=== PATIENT | male | born 1935 | race Caucasian/White ===

== ENCOUNTER 2017-05-12 22:06 | Inpatient (IN) | payer MEDICARE ==
[2017-05-12 22:16] LABS: Glucose,Whole Blood 326 mg/dL (75-99)
[2017-05-12] MEDS ORDERED: ACETAMINOPHEN TAB 500 MG TAB PO STA (22:17)
[2017-05-12] MEDS: SODIUM CHLORIDE 0.9% 500 ML IV SCH (22:31)
[2017-05-12 22:35] LABS: Basophils % (A) 0 %; Eosinophils # (A) 0.2 k/uL (0-0.7); Eosinophils % (A) 1 %; HCT 36.7 % (39.0-53.0); HDW 2.86; HGB 11.7 gm/dL (13.0-17.5); Luc # (Auto) 0.04; Luc % (Auto) 0; Lymphocytes # (A) 1.3 k/uL (1.0-4.8); Lymphocytes % (A) 9 %; MCHC 31.7 g/dL (31.0-37.0); MCV 91.4 fL (80.0-100.0); Mean Platelet Volume 7.1; Monocytes # (A) 0.4 k/uL (0-1.0); Monocytes % (A) 3 %; Neutrophils # (A) 12.8 k/uL (1.3-7.7); Neutrophils % (A) 87 %; RBC 4.02 m/uL (4.30-5.90); RDW 15.4 % (11.5-15.5); WBC 14.7 k/uL (3.8-10.6); WBC (Perox) 15.28
[2017-05-12 22:47] LABS: ALT 22 U/L (21-72); AST 22 U/L (17-59); Alkaline Phosphatase 89 U/L (38-126); Blood Urea Nitrogen 45 mg/dL (9-20); Calcium 9.1 mg/dL (8.4-10.2); Carbon Dioxide 22 mmol/L (22-30); Chloride 102 mmol/L (98-107); Glucose 337 mg/dL (74-99); Non-African American GFR(MDRD) 45 (>60 ml/min/1.73 sqM); Total Bilirubin 0.5 mg/dL (0.2-1.3); Total Protein 7.1 g/dL (6.3-8.2)
[2017-05-12 22:50] LABS: INR 1.1 (<1.2); Prothrombin Time 10.8 sec (9.0-12.0)
[2017-05-12 22:59] LABS: Particle Count 63780
[2017-05-12 23:01] LABS: Partial Thromboplastin Time 20.2 sec (22.0-30.0)
[2017-05-12 23:08] LABS: Appearance,Urine Bloody (Clear)
[2017-05-12 23:09] LABS: UA Billing (MACRO vs. MICRO) MICRO
--- NOTE | 2017-05-12 23:16 | XR ---
EXAMINATION TYPE: XR Hip RT and AP Pelvis DATE OF EXAM: 05/12/2017 COMPARISON: 05/25/2016 HISTORY: Pain TECHNIQUE: A single AP view of the pelvis is obtained. Two views of the right hip are obtained. FINDINGS: The pelvic ring is intact. Proximal right femur and hip joint are intact. There is vascular calcification. Sacroiliac joints are intact. CONCLUSION: No acute abnormality of the pelvis and right hip. No fracture.
--- NOTE | 2017-05-12 23:18 | XR ---
EXAMINATION TYPE: XR chest 2V DATE OF EXAM: 05/12/2017 COMPARISON: 05/31/2016 HISTORY: Fever TECHNIQUE: Frontal and lateral views of the chest are obtained. FINDINGS: There is no heart failure nor confluent pneumonic infiltrate. There is slight coarsening o f interstitial markings. Costophrenic angles are clear. Thoracic aorta is atheromatous. IMPRESSION: No active cardiopulmonary disease. Mild pulmonary fibrotic changes. Chest appears improv ed compared to last exam. No evidence of bronchopneumonia.
[2017-05-12 23:25] LABS: Anion Gap 12 mmol/L; Sodium 136 mmol/L (137-145)
[2017-05-12 23:27] LABS: Potassium 5.3 mmol/L (3.5-5.1)
[2017-05-12] MEDS ORDERED: MORPHINE SULFATE 2 MG/ML SYRINGE IVP STA (23:28)
[2017-05-12] MEDS ORDERED: ONDANSETRON 4 MG/2 ML VIAL IVP STA (23:28)
--- NOTE | 2017-05-12 23:33 | ED ---
General Adult HPI - General Chief complaint: Extremity Problem,Nontraumatic Stated complaint: Hip Pain Time Seen by Provider: 05/12/17 22:09 Source: patient, EMS, RN notes reviewed Mode of arrival: EMS Limitations: no limitations - History of Present Illness Initial comments: This is an 81-year-old male presents emergency department via EMS with multiple complaints. Patient complains of right hip pain, hematuria, fever or chills. Patient states she's been having ongoing issues with his right hip states that he is given medication by Dr. jones and had some x-rays so does not know the results. Patient denies any trauma. He states is very painful to walk on. Patient states that he's had problems with hematuria should've been ongoing and states that he had a procedure on his prostate approximately one year ago. He states that he has to self cath. He states that the hematuria was so severe today he could not get urine out through his catheter but he did urinate just prior to arrival. Patient states she has not taken anything for his fever. Patient states that he has been shaking and which is a started this evening. Patient denies any URI including cough, chest congestion, runny nose, sore throat, ear pain. Denies any chest pain or shortness of breath. - Related Data Home Medications Medication Instructions Recorded Confirmed Finasteride [Proscar] 5 mg PO DAILY 05/25/16 05/12/17 Simvastatin [Zocor] 10 mg PO HS 05/25/16 05/12/17 Previous Rx's Medication Instructions Recorded Insulin Detemir [Levemir] 10 unit SQ DAILY #0 05/31/16 Lactulose [Cephulac] 20 gm PO QID PRN #400 ml 05/31/16 Metoprolol Tartrate [Lopressor] 50 mg PO BID #60 tab 05/31/16 Pantoprazole Sodium [Protonix] 40 mg PO DAILY #30 tablet. 05/31/16 Allergies Allergy/AdvReac Type Severity Reaction Status Date / Time No Known Allergies Allergy Verified 05/25/16 13:00 Review of Systems ROS Statement: Those systems with pertinent positive or pertinent negative responses have been documented in the HPI. ROS Other: All systems not noted in ROS Statement are negative. Past Medical History Past Medical History: Coronary Artery Disease (CAD), Diabetes Mellitus, Hyperlipidemia, Hypertension, Prostate Disorder Additional Past Medical History / Comment(s): SHINGLES 3 YEARS AGO History of Any Multi-Drug Resistant Organisms: None Reported Past Surgical History: No Surgical Hx Reported Additional Past Surgical History / Comment(s): SELENE CATARACTS, COLONOSCOPY/ POLYPECTOMY(BENIGN) Past Anesthesia/Blood Transfusion Reactions: No Reported Reaction Past Psychological History: No Psychological Hx Reported Smoking Status: Former smoker Past Alcohol Use History: None Reported Past Drug Use History: None Reported - Past Family History Father Family Medical History: Cancer Mother Family Medical History: Cancer Additional Family Medical History / Comment(s): BREAST CANCER General Exam Limitations: no limitations General appearance: alert, in no apparent distress Head exam: Present: atraumatic, normocephalic, normal inspection Respiratory exam: Present: normal lung sounds bilaterally. Absent: respiratory distress, wheezes, rales, rhonchi, stridor Cardiovascular Exam: Present: regular rate, normal rhythm, normal heart sounds. Absent: systolic murmur, diastolic murmur, rubs, gallop, clicks GI/Abdominal exam: Present: soft, normal bowel sounds. Absent: distended, tenderness, guarding, rebound, rigid Extremities exam: Present: other (Mild discomfort with range of motion the right hip, nontender no rashes) Neurological exam: Present: alert, oriented X3, CN II-XII intact, reflexes normal. Absent: motor sensory deficit Skin exam: Present: warm, dry, intact, normal color. Absent: rash Course Vital Signs 05/12/17 22:09 Temperature 102.7 F H Pulse Rate 83 Respiratory 20 Rate Blood Pressure 230/98 O2 Sat by Pulse 99 Oximetry Medical Decision Making - Lab Data Result diagrams: 05/12/17 22:10 05/12/17 22:10 Lab Results 05/12/17 05/12/17 05/12/17 Range/Units 22:10 22:10 22:10 WBC 14.7 H (3.8-10.6) k/uL RBC 4.02 L (4.30-5.90) m/uL Hgb 11.7 L (13.0-17.5) gm/dL Hct 36.7 L (39.0-53.0) % MCV 91.4 (80.0-100.0) fL MCH 29.0 (25.0-35.0) pg MCHC 31.7 (31.0-37.0) g/dL RDW 15.4 (11.5-15.5) % Plt Count 312 (150-450) k/uL Neutrophils % 87 % Lymphocytes % 9 % Monocytes % 3 % Eosinophils % 1 % Basophils % 0 % Neutrophils # 12.8 H (1.3-7.7) k/uL Lymphocytes # 1.3 (1.0-4.8) k/uL Monocytes # 0.4 (0-1.0) k/uL Eosinophils # 0.2 (0-0.7) k/uL Basophils # 0.0 (0-0.2) k/uL PT (9.0-12.0) sec INR (<1.2) APTT (22.0-30.0) sec Sodium 136 L (137-145) mmol/L Potassium 5.3 H (3.5-5.1) mmol/L Chloride 102 (98-107) mmol/L Carbon Dioxide 22 (22-30) mmol/L Anion Gap 12 mmol/L BUN 45 H (9-20) mg/dL Creatinine 1.50 H (0.66-1.25) mg/dL Est GFR (MDRD) Af Amer 54 (>60 ml/min/1.73 sqM) Est GFR (MDRD) Non-Af 45 (>60 ml/min/1.73 sqM) Glucose 337 H (74-99) mg/dL POC Glucose (mg/dL) (75-99) mg/dL POC Glu Wood Carver ID Plasma Lactic Acid Lorenzo 2.9 H* (0.7-2.0) mmol/L Calcium 9.1 (8.4-10.2) mg/dL Total Bilirubin 0.5 (0.2-1.3) mg/dL AST 22 (17-59) U/L ALT 22 (21-72) U/L Alkaline Phosphatase 89 (38-126) U/L Total Protein 7.1 (6.3-8.2) g/dL Albumin 3.7 (3.5-5.0) g/dL Urine Color Urine Appearance (Clear) Urine Blood (Negative) Urine RBC (0-5) /hpf Urine WBC (0-5) /hpf Acetone, Qual Negative (Negative) Influenza Type A RNA (Not Detectd) Influenza Type B (PCR) (Not Detectd) 05/12/17 05/12/17 05/12/17 Range/Units 22:10 22:13 22:25 WBC (3.8-10.6) k/uL RBC (4.30-5.90) m/uL Hgb (13.0-17.5) gm/dL Hct (39.0-53.0) % MCV (80.0-100.0) fL MCH (25.0-35.0) pg MCHC (31.0-37.0) g/dL RDW (11.5-15.5) % Plt Count (150-450) k/uL Neutrophils % % Lymphocytes % % Monocytes % % Eosinophils % % Basophils % % Neutrophils # (1.3-7.7) k/uL Lymphocytes # (1.0-4.8) k/uL Monocytes # (0-1.0) k/uL Eosinophils # (0-0.7) k/uL Basophils # (0-0.2) k/uL PT 10.8 (9.0-12.0) sec INR 1.1 (<1.2) APTT 20.2 L (22.0-30.0) sec Sodium (137-145) mmol/L Potassium (3.5-5.1) mmol/L Chloride (98-107) mmol/L Carbon Dioxide (22-30) mmol/L Anion Gap mmol/L BUN (9-20) mg/dL Creatinine (0.66-1.25) mg/dL Est GFR (MDRD) Af Amer (>60 ml/min/1.73 sqM) Est GFR (MDRD) Non-Af (>60 ml/min/1.73 sqM) Glucose (74-99) mg/dL POC Glucose (mg/dL) 326 H (75-99) mg/dL POC Glu Wood Carver ID David, Adolfo Plasma Lactic Acid Lorenzo (0.7-2.0) mmol/L Calcium (8.4-10.2) mg/dL Total Bilirubin (0.2-1.3) mg/dL AST (17-59) U/L ALT (21-72) U/L Alkaline Phosphatase (38-126) U/L Total Protein (6.3-8.2) g/dL Albumin (3.5-5.0) g/dL Urine Color Urine Appearance (Clear) Urine Blood (Negative) Urine RBC (0-5) /hpf Urine WBC (0-5) /hpf Acetone, Qual (Negative) Influenza Type A RNA Not Detected (Not Detectd) Influenza Type B (PCR) Not Detected (Not Detectd) 05/12/17 Range/Units 22:35 WBC (3.8-10.6) k/uL RBC (4.30-5.90) m/uL Hgb (13.0-17.5) gm/dL Hct (39.0-53.0) % MCV (80.0-100.0) fL MCH (25.0-35.0) pg MCHC (31.0-37.0) g/dL RDW (11.5-15.5) % Plt Count (150-450) k/uL Neutrophils % % Lymphocytes % % Monocytes % % Eosinophils % % Basophils % % Neutrophils # (1.3-7.7) k/uL Lymphocytes # (1.0-4.8) k/uL Monocytes # (0-1.0) k/uL Eosinophils # (0-0.7) k/uL Basophils # (0-0.2) k/uL PT (9.0-12.0) sec INR (<1.2) APTT (22.0-30.0) sec Sodium (137-145) mmol/L Potassium (3.5-5.1) mmol/L Chloride (98-107) mmol/L Carbon Dioxide (22-30) mmol/L Anion Gap mmol/L BUN (9-20) mg/dL Creatinine (0.66-1.25) mg/dL Est GFR (MDRD) Af Amer (>60 ml/min/1.73 sqM) Est GFR (MDRD) Non-Af (>60 ml/min/1.73 sqM) Glucose (74-99) mg/dL POC Glucose (mg/dL) (75-99) mg/dL POC Glu Wood Carver ID Plasma Lactic Acid Lorenzo (0.7-2.0) mmol/L Calcium (8.4-10.2) mg/dL Total Bilirubin (0.2-1.3) mg/dL AST (17-59) U/L ALT (21-72) U/L Alkaline Phosphatase (38-126) U/L Total Protein (6.3-8.2) g/dL Albumin (3.5-5.0) g/dL Urine Color Dark Red Urine Appearance Bloody (Clear) Urine Blood Large H (Negative) Urine RBC >182 H (0-5) /hpf Urine WBC >182 H (0-5) /hpf Acetone, Qual (Negative) Influenza Type A RNA (Not Detectd) Influenza Type B (PCR) (Not Detectd) Disposition Clinical Impression: Right hip pain, UTI (urinary tract infection), Hematuria, Sepsis, Hyperglycemia Disposition: ADMITTED IP TO THIS HOSP Condition: Fair Referrals: Jose Luis Jones MD [Primary Care Provider] - 1-2 days
[2017-05-12 23:34] LABS: RBC,Urine >182 /hpf (0-5); WBC,Urine >182 /hpf (0-5)
[2017-05-12] MEDS ORDERED: MORPHINE SULFATE 4 MG/ML SYRINGE IV PRN (23:34)
[2017-05-12] MEDS ORDERED: LEVOFLOXACIN 500MG-D5W PMX 500 MG in DEXTROSE/WATER 1 100ML.BAG IVPB STA (23:34)
[2017-05-12] MEDS ORDERED: NALOXONE 0.4 MG/ML 1 ML VIAL IV PRN (23:34)
[2017-05-12] MEDS ORDERED: ACETAMINOPHEN TAB 325 MG TAB PO PRN (23:34)
[2017-05-12] MEDS ORDERED: HYDROmorphone 0.5 MG/0.5 ML SYRINGE IVP STA (23:56)
[2017-05-13] MEDS ORDERED: MORPHINE SULFATE 2 MG/ML SYRINGE IV PRN (00:06)
--- NOTE | 2017-05-13 01:01 | P.HPIM ---
History of Present Illness H&P Date: 05/13/17 Chief Complaint: hematuria 81 year old male with extensive medical history, including P.Afib on eliquis, and history of BPH resulting in urinary retention and CHICO 1 year ago since then he has been self cathing and reports frequent UTI. Patient presented today with complaints of acute onset hematuria and urinary retention. He reports that he gets frequent UTI due to self catheterization most likely, and he also have noticed off and on hematuria. He is not a detailed historian, and was not sure what previous workup or diagnosis made for the hematuria, however, he adds, this time he was unable to get urine out with the cath, but eventually passed bloody urine on his own. Despite that, he feels incomplete emptying of his bladder along with an attack of chills and fever today. Denies any abd pain, nausea , vomiting, fevers (other than prior to coming to the hospital) , falls, confusion, coughing, chest pain, or trouble breathing. He admits to taking eliquis for history of P. Afib for long time now. He currently feels ok, denies again any new compliant other than above. He reports chronic right hip pain. Review of Systems positive for right hip pain worsen with weight bearing chronic in nature, off and on hematuria otherwise as documented in the HPI, all other systems were reviewed and are negative Past Medical History Past Medical History: Coronary Artery Disease (CAD), Diabetes Mellitus, Hyperlipidemia, Hypertension, Prostate Disorder Additional Past Medical History / Comment(s): SHINGLES 3 YEARS AGO History of Any Multi-Drug Resistant Organisms: None Reported Past Surgical History: No Surgical Hx Reported Additional Past Surgical History / Comment(s): SELENE CATARACTS, COLONOSCOPY/ POLYPECTOMY(BENIGN), orthopedic surgery when he was a child, cystoscopy last year Past Anesthesia/Blood Transfusion Reactions: No Reported Reaction Past Psychological History: No Psychological Hx Reported Smoking Status: Former smoker Past Alcohol Use History: None Reported Past Drug Use History: None Reported - Past Family History Father Family Medical History: Cancer Mother Family Medical History: Cancer Additional Family Medical History / Comment(s): BREAST CANCER Medications and Allergies Home Medications and Allergies Comment(s): reviewed Home Medications Medication Instructions Recorded Confirmed Type Finasteride [Proscar] 5 mg PO DAILY 05/25/16 05/12/17 History Simvastatin [Zocor] 10 mg PO HS 05/25/16 05/12/17 History Insulin Detemir [Levemir] 10 unit SQ DAILY #0 05/31/16 05/12/17 Rx Lactulose [Cephulac] 20 gm PO QID PRN #400 ml 05/31/16 05/12/17 Rx Metoprolol Tartrate [Lopressor] 50 mg PO BID #60 tab 05/31/16 05/12/17 Rx Pantoprazole Sodium [Protonix] 40 mg PO DAILY #30 tablet. 05/31/16 05/12/17 Rx Allergies Allergy/AdvReac Type Severity Reaction Status Date / Time No Known Allergies Allergy Verified 05/25/16 13:00 Physical Exam Vitals: Vital Signs Temp Pulse Pulse Resp BP BP Pulse Ox 05/13/17 01:24 EDT 100.8 F H 66 18 105/48 94 L 05/13/17 00:06 99.3 F 05/12/17 23:42 84 18 170/74 97 05/12/17 22:09 102.7 F H 83 20 230/98 99 Intake and Output 05/12/17 05/12/17 05/13/17 14:59 22:59 05:59 Intake Total 450 Balance 450 Intake: Amount of Fluid Infused ( 450 ml) Other: Weight 106.594 kg 103 kg Patient Weight 05/13/17 05:59 Weight 103 kg Constitutional: No acute distress, conversant, pleasant Eyes: Anicteric sclerae, moist conjunctiva, no lid-lag Pupils equal round reactive to light ENMT: NC/AT Oropharynx clear, no erythema, exudates, dentures Neck: Supple, FROM, no masses, or JVD No carotid bruits No thyromegaly Lungs: Clear to auscultation Clear to percussion Normal respiratory effort, no accessory muscle use Cardiovascular: Heart regular in rate and rhythm, No murmurs, gallops, or rubs No peripheral edema capillary refill immediate in fingers and toes bilaterally Abdominal: Soft Nontender, no guarding, rebound or rigidity Abdomen moving with respiration Normoactive bowel sounds No hepatomegaly, No splenomegaly No palpable mass slight upper abd distention no CVA tenderness to percussion Skin: Normal temperature, tone, texture, turgor No induration No subcutaneous nodules No rash, lesions No ulcers Extremities: No digital cyanosis No clubbing Pedal pulses intact and symmetrical Radial pulses intact and symmetrical No calf tenderness no visible skin abnormalities or any swelling or skin changes over the right hip. range of motion is grossly preserved in all four extremities Psychiatric: Alert and oriented to person, place Appropriate affect fair judgment Neuro Muscles Strength 4/5 in all 4 extremities Sensation to light touch grossly present throughout Cranial nerves II-XII grossly intact No focal sensory deficits Lymphatics: no palpable cervical or supraclavicular , or inguinal lymph nodes Evidence of blood spots on his underwear anteriorly Results CBC & Chem 7: 05/12/17 22:10 05/12/17 22:10 Labs: Abnormal Lab Results - Last 24 Hours (Table) 05/12/17 05/12/17 05/12/17 Range/Units 22:10 22:10 22:10 WBC 14.7 H (3.8-10.6) k/uL RBC 4.02 L (4.30-5.90) m/uL Hgb 11.7 L (13.0-17.5) gm/dL Hct 36.7 L (39.0-53.0) % Neutrophils # 12.8 H (1.3-7.7) k/uL APTT (22.0-30.0) sec Sodium 136 L (137-145) mmol/L Potassium 5.3 H (3.5-5.1) mmol/L BUN 45 H (9-20) mg/dL Creatinine 1.50 H (0.66-1.25) mg/dL Glucose 337 H (74-99) mg/dL POC Glucose (mg/dL) (75-99) mg/dL Plasma Lactic Acid Lorenzo 2.9 H* (0.7-2.0) mmol/L Urine Blood (Negative) Urine RBC (0-5) /hpf Urine WBC (0-5) /hpf 05/12/17 05/12/17 05/12/17 Range/Units 22:10 22:13 22:35 WBC (3.8-10.6) k/uL RBC (4.30-5.90) m/uL Hgb (13.0-17.5) gm/dL Hct (39.0-53.0) % Neutrophils # (1.3-7.7) k/uL APTT 20.2 L (22.0-30.0) sec Sodium (137-145) mmol/L Potassium (3.5-5.1) mmol/L BUN (9-20) mg/dL Creatinine (0.66-1.25) mg/dL Glucose (74-99) mg/dL POC Glucose (mg/dL) 326 H (75-99) mg/dL Plasma Lactic Acid Lorenzo (0.7-2.0) mmol/L Urine Blood Large H (Negative) Urine RBC >182 H (0-5) /hpf Urine WBC >182 H (0-5) /hpf 05/13/17 Range/Units 01:01 EST WBC (3.8-10.6) k/uL RBC (4.30-5.90) m/uL Hgb (13.0-17.5) gm/dL Hct (39.0-53.0) % Neutrophils # (1.3-7.7) k/uL APTT (22.0-30.0) sec Sodium (137-145) mmol/L Potassium (3.5-5.1) mmol/L BUN (9-20) mg/dL Creatinine (0.66-1.25) mg/dL Glucose (74-99) mg/dL POC Glucose (mg/dL) 247 H (75-99) mg/dL Plasma Lactic Acid Lorenzo (0.7-2.0) mmol/L Urine Blood (Negative) Urine RBC (0-5) /hpf Urine WBC (0-5) /hpf Assessment and Plan Assessment: 81 year old male presented with acute onset heamturia and urinary retention, found to be in sepsis possibly 2/2 UTI. (1) Sepsis Narrative/Plan: 2/2 UTI switched to Rocephine 1 gm daily follow up blood and urine culture IVF hydration with NS 0.9% monitor vital signs symptomatic control recheck LA after aggressive hydration Current Visit: Yes Status: Acute Code(s): A41.9 - SEPSIS, UNSPECIFIED ORGANISM SNOMED Code(s): 48406772 (2) UTI (urinary tract infection) Narrative/Plan: This is most likely 2/2 self cath received a dose of levaquin in ED urine cultures pending blood culture pending switch to Rocephin to avoid potential side effects of levaquin Tylenol for fever Current Visit: Yes Status: Acute Code(s): N39.0 - URINARY TRACT INFECTION, SITE NOT SPECIFIED SNOMED Code(s): 19727501 (3) Hematuria Narrative/Plan: multifactorial with underlying acute UTI, and possible Eliquis side effect monitor UOP check bladder scan and self cath if PVR >200cc consult urology Current Visit: Yes Status: Acute Code(s): R31.9 - HEMATURIA, UNSPECIFIED SNOMED Code(s): 57601256 (4) Lactic acidosis Narrative/Plan: 2/2 hypoperfusion with sepsis aggressive IV fluid hydration NS 0.9% bolus 1L recheck LA Current Visit: Yes Status: Acute Code(s): E87.2 - ACIDOSIS SNOMED Code(s) : 56957715 (5) CKD (chronic kidney disease) Narrative/Plan: It seems like his Cr at his baseline of 1.5 continue to monitor renal function avoid nephrotoxic meds check renal US to r/o hydronephorsis Current Visit: Yes Status: Chronic Code(s): N18.9 - CHRONIC KIDNEY DISEASE, UNSPECIFIED SNOMED Code(s): 935092115 (6) Hyperkalemia Narrative/Plan: slightly elevated continue to monitor electrolytes for now Current Visit: Yes Status: Acute Code(s): E87.5 - HYPERKALEMIA SNOMED Code (s): 66772150 (7) Right hip pain Narrative/Plan: symptomatic pain control xrays unremarkable PT consider OP orthopedic evaluation , 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 Current Visit: No Status: Chronic Code(s): M25.551 - PAIN IN RIGHT HIP SNOMED Code(s): 22140183 (8) Hyperglycemia Narrative/Plan: most likely 2/2 to underlying sepsis not in DKA at this time with history of DM insulin dependant continue with insulin sliding scale and long acting insulin at night Current Visit: Yes Status: Acute Code(s): R73.9 - HYPERGLYCEMIA, UNSPECIFIED SNOMED Code(s): 58955327 (9) Paroxysmal A-fib Narrative/Plan: currently in sinus rhythm on blood thinner (eliquis on hold now due to acute hematuria ) continue with BB family counseled regarding increase risk of stroke from history of Afib if not on blood thinner, but risks outweigh benefits at this point continue to hold Eliquis until cleared by Urology Current Visit: Yes Status: Chronic Code(s): I48.0 - PAROXYSMAL ATRIAL FIBRILLATION SNOMED Code(s): 713682585 (10) DVT prophylaxis Narrative/Plan: avoid pharmacologic anticoagulation at this time due to hematuria SCDs bilateral legs Current Visit: Yes Status: Acute Code(s): GMO5637 - SNOMED Code(s): 349250710 (11) BPH (benign prostatic hyperplasia) Narrative/Plan: continue home meds monitor PVR Current Visit: Yes Status: Chronic Code(s): N40.0 - BENIGN PROSTATIC HYPERPLASIA WITHOUT LOWER URINRY TRACT SYMP SNOMED Code(s): 626374297 (12) Hypertensive urgency Narrative/Plan: resume home meds no evidence of end organ damage it seems that his creatinine is slightly elevated at baseline Current Visit: Yes Status: Acute Code(s): I16.0 - HYPERTENSIVE URGENCY SNOMED Code(s): 952409316 (13) Anemia Narrative/Plan: chronic anemia currently with acute hematuria monitor blood count Current Visit: Yes Status: Chronic Code(s): D64.9 - ANEMIA, UNSPECIFIED SNOMED Code(s): 683348626 Plan: Preformed a thorough record review from recent hospitalization almost a year ago , where he was diangosed with [place] due to urinary retention and hydronephrosis, urography and cystoscopy were performed then and found to have BPH. ECHOcardiogram last year showed LVEF of 55-60% Surrogate decision-maker: CODE STATUS: FULL DVT prophylaxis: SCDs mechanical Discussed with: Patient, ER, RN, family Anticipated discharge: 48-[address]: home A total of 50 minutes were spent on the care of this complex patient more than 50% of the time was spent in counseling and care coordination. Sepsis - Sepsis Sepsis Focused Exam #1 Sepsis Focused Exam Date: 05/13/17 Sepsis Focused Exam Complete: Yes Vital Signs & RN Notes Reviewed: Yes Capillary Refill: < 2 Seconds: Fingers (immediate), Toes (immediate) Peripheral Pulses: Weak: Dorsalis Pedis (R), Dorsalis Pedis (L), Normal: Radial (R), Radial (L) Skin Color: Normal for Patient Respiratory Exam: normal lung sounds Cardiovascular Exam: regular rate, normal heart sounds
[2017-05-13 01:09] LABS: Glucose,Whole Blood 247 mg/dL (75-99)
[2017-05-13] MEDS ORDERED: SODIUM CHLORIDE 0.9% 1,000 ML IV ONE (01:21)
[2017-05-13] MEDS: SODIUM CHLORIDE 0.9% 500 ML IV SCH (01:23)
[2017-05-13] MEDS: INSULIN DETEMIR 100 UNIT/ML 10 ML VIAL SQ SCH (01:29)
[2017-05-13 01:48] LABS: Basophils % (A) 0 %; CHCM 32.3; Eosinophils % (A) 0 %; HDW 3.05; Hypochromasia Slight; Luc # (Auto) 0.07; Luc % (Auto) 1; Lymphocytes # (A) 0.5 k/uL (1.0-4.8); Lymphocytes % (A) 3 %; MCH 28.7 pg (25.0-35.0); MCHC 30.8 g/dL (31.0-37.0); MCV 93.3 fL (80.0-100.0); Mean Platelet Volume 6.5; Monocytes # (A) 0.8 k/uL (0-1.0); Monocytes % (A) 5 %; Neutrophils # (A) 13.5 k/uL (1.3-7.7); Neutrophils % (A) 90 %; RBC 3.32 m/uL (4.30-5.90); RDW 14.1 % (11.5-15.5); WBC (Perox) 15.34
[2017-05-13 01:50] LABS: Calcium 8.3 mg/dL (8.4-10.2); HGB 9.5 gm/dL (13.0-17.5); Potassium 3.9 mmol/L (3.5-5.1)
[2017-05-13] MEDS: HYDROmorphone 1 MG/ML 1 ML SYRINGE IVP PRN ×4 (03:13→21:10)
[2017-05-13] MEDS: SODIUM CHLORIDE 0.9% 1,000 ML IV SCH ×3 (03:20→16:26)
[2017-05-13 07:28] LABS: Glucose,Whole Blood 120 mg/dL (75-99)
[2017-05-13] MEDS: INSULIN LISPRO (humaLOG) 300 UNIT/3 ML VIAL SQ SCH ×4 (07:37→21:55)
[2017-05-13] MEDS: cefTRIAXone IN SWFI 1,000 MG/10 ML SYRINGE IVP SCH (07:38)
[2017-05-13] MEDS: FINASTERIDE 5 MG TAB PO SCH (07:38)
[2017-05-13] MEDS: METOPROLOL TARTRATE 50 MG TAB PO SCH ×2 (07:38→22:01)
[2017-05-13] MEDS: PANTOPRAZOLE 40 MG TABLET PO SCH (07:38)
[2017-05-13] MEDS ORDERED: INSULIN DETEMIR 100 UNIT/ML 10 ML VIAL SQ SCH (09:00)
--- NOTE | 2017-05-13 09:29 | US ---
EXAMINATION TYPE: US renals and bladder DATE OF EXAM: 05/13/2017 COMPARISON: NONE CLINICAL HISTORY: assess for hydronephrosis . Macroscopic hematuria EXAM MEASUREMENTS: Right Kidney: 10.7 x 4.8 x 4.9 cm Left Kidney: 10.3 x 4.0 x 5.5 cm Right Kidney: No hydronephrosis or masses seen Left Kidney: No hydronephrosis or masses seen Bladder: mildly distended, wall appears thickened = 0.8 cm Bilateral Jets not seen IMPRESSION: 1. NO ACUTE RENAL ABNORMALITY. 2. THICKENED BLADDER WALL MAY REPRESENT CHRONIC BLADDER OUTLET OBSTRUCTION.
[2017-05-13] MEDS: HYDROcodone/APAP 5-325MG 1 EACH TAB PO PRN ×2 (09:33→14:16)
[2017-05-13] MEDS ORDERED: VANCOMYCIN IV PER PHARMACY 1 EACH MISC MISCELLANE PRN (10:59)
[2017-05-13] MEDS ORDERED: VANCOMYCIN 2,000 MG in SODIUM CHLORIDE 0.9% 500 ML IVPB ONE (12:00)
--- NOTE | 2017-05-13 12:16 | P.GSCN ---
History of Present Illness Consult date: 05/13/17 Reason for Consult: Hematuria Requesting physician: Yaya Sim History of present illness: He is an 81 year old WM hospitalized in May 2016 with acute renal failure, determined to be the result of a prostatomembranous urethral stricture. He underwent urethral dilation with Ramesh catheter placement, and his renal function improved. He now performs CIC 4 times daily. He experienced difficulty passing straight tip catheters, but he is able to catheterize himself with a 12 coude catheter 4 times daily without difficulty. He has recently passed blood and tissue, typically involving only the terminal stream. Cystoscopy was attempted last week, but could not be performed to completion due to a bulbomembranous stricture. He was advised to consider cystoscopy under anesthesia. He is now admitted with pain and weakness of his right lower extremity. He recently voided, and bladder scan showed approximately 100 mL of urine in his bladder as the postvoid residual. Review of Systems - Constitutional Reports fever - Genitourinary Reports hematuria - Musculoskeletal Musculoskeleta Comment(s): Right leg pain and weakness Past Medical History Past Medical History: Coronary Artery Disease (CAD), Diabetes Mellitus, Hyperlipidemia, Hypertension, Prostate Disorder Additional Past Medical History / Comment(s): SHINGLES 3 YEARS AGO History of Any Multi-Drug Resistant Organisms: None Reported Past Surgical History: No Surgical Hx Reported Additional Past Surgical History / Comment(s): SELENE CATARACTS, COLONOSCOPY/ POLYPECTOMY(BENIGN), orthopedic surgery when he was a child, cystoscopy last year Past Anesthesia/Blood Transfusion Reactions: No Reported Reaction Past Psychological History: No Psychological Hx Reported Smoking Status: Former smoker Past Alcohol Use History: None Reported Past Drug Use History: None Reported - Past Family History Father Family Medical History: Cancer Mother Family Medical History: Cancer Additional Family Medical History / Comment(s): BREAST CANCER Medications and Allergies Home Medications Medication Instructions Recorded Confirmed Type Finasteride [Proscar] 5 mg PO DAILY 05/25/16 05/13/17 History Metoprolol Tartrate [Lopressor] 50 mg PO BID #60 tab 05/31/16 05/13/17 Rx Acetaminophen-Codeine 300-30mg 1 tab PO TID PRN 05/13/17 05/13/17 History [Tylenol #3] Apixaban [Eliquis] 5 mg PO BID 05/13/17 05/13/17 History Atorvastatin [Lipitor] 20 mg PO DAILY 05/13/17 05/13/17 History Furosemide [Lasix] 20 mg PO DAILY 05/13/17 05/13/17 History Insulin Degludec [Tresiba 40 unit SQ HS 05/13/17 05/13/17 History Flextouch U-100] amLODIPine BESYLATE [Norvasc] 5 mg PO DAILY 05/13/17 05/13/17 History methylPREDNISolone [Medrol Dose See Taper PO DIRECTED 05/13/17 05/13/17 History Pack] Allergies Allergy/AdvReac Type Severity Reaction Status Date / Time No Known Allergies Allergy Verified 05/25/16 13:00 Surgical - Exam Vital Signs Temp Pulse Resp BP Pulse Ox 102.7 F H 83 20 230/98 99 05/12/17 22:09 05/12/17 22:09 05/12/17 22:09 05/12/17 22:09 05/12/17 22:09 - General well developed, well nourished, no distress - Respiratory normal respiratory effort - Abdomen Abdomen: soft, non tender, no guarding, no rigid, no rebound - Genitourinary testicles non-tender, other (The penis is uncircumcised. There is evidence of phimosis.) Results - Labs 05/13/17 01:01 EST 05/13/17 01:01 EST Abnormal Lab Results - Last 24 Hours (Table) 05/12/17 05/12/17 05/12/17 Range/Units 22:10 22:10 22:10 WBC 14.7 H (3.8-10.6) k/uL RBC 4.02 L (4.30-5.90) m/uL Hgb 11.7 L (13.0-17.5) gm/dL Hct 36.7 L (39.0-53.0) % MCHC (31.0-37.0) g/dL Neutrophils # 12.8 H (1.3-7.7) k/uL Lymphocytes # (1.0-4.8) k/uL APTT (22.0-30.0) sec Sodium 136 L (137-145) mmol/L Potassium 5.3 H (3.5-5.1) mmol/L BUN 45 H (9-20) mg/dL Creatinine 1.50 H (0.66-1.25) mg/dL Glucose 337 H (74-99) mg/dL POC Glucose (mg/dL) (75-99) mg/dL Plasma Lactic Acid Lorenzo 2.9 H* (0.7-2.0) mmol/L Calcium (8.4-10.2) mg/dL Urine Blood (Negative) Urine RBC (0-5) /hpf Urine WBC (0-5) /hpf 05/12/17 05/12/17 05/12/17 Range/Units 22:10 22:13 22:35 WBC (3.8-10.6) k/uL RBC (4.30-5.90) m/uL Hgb (13.0-17.5) gm/dL Hct (39.0-53.0) % MCHC (31.0-37.0) g/dL Neutrophils # (1.3-7.7) k/uL Lymphocytes # (1.0-4.8) k/uL APTT 20.2 L (22.0-30.0) sec Sodium (137-145) mmol/L Potassium (3.5-5.1) mmol/L BUN (9-20) mg/dL Creatinine (0.66-1.25) mg/dL Glucose (74-99) mg/dL POC Glucose (mg/dL) 326 H (75-99) mg/dL Plasma Lactic Acid Lorenzo (0.7-2.0) mmol/L Calcium (8.4-10.2) mg/dL Urine Blood Large H (Negative) Urine RBC >182 H (0-5) /hpf Urine WBC >182 H (0-5) /hpf 05/13/17 05/13/17 05/13/17 Range/Units 01:01 EST 01:01 EST 01:01 EST WBC 15.0 H (3.8-10.6) k/uL RBC 3.32 L (4.30-5.90) m/uL Hgb 9.5 L D (13.0-17.5) gm/dL Hct 31.0 L (39.0-53.0) % MCHC 30.8 L (31.0-37.0) g/dL Neutrophils # 13.5 H (1.3-7.7) k/uL Lymphocytes # 0.5 L (1.0-4.8) k/uL APTT (22.0-30.0) sec Sodium 134 L (137-145) mmol/L Potassium (3.5-5.1) mmol/L BUN 46 H (9-20) mg/dL Creatinine 1.70 H (0.66-1.25) mg/dL Glucose 203 H (74-99) mg/dL POC Glucose (mg/dL) 247 H (75-99) mg/dL Plasma Lactic Acid Lorenzo (0.7-2.0) mmol/L Calcium 8.3 L (8.4-10.2) mg/dL Urine Blood (Negative) Urine RBC (0-5) /hpf Urine WBC (0-5) /hpf 05/13/17 Range/Units 07:27 WBC (3.8-10.6) k/uL RBC (4.30-5.90) m/uL Hgb (13.0-17.5) gm/dL Hct (39.0-53.0) % MCHC (31.0-37.0) g/dL Neutrophils # (1.3-7.7) k/uL Lymphocytes # (1.0-4.8) k/uL APTT (22.0-30.0) sec Sodium (137-145) mmol/L Potassium (3.5-5.1) mmol/L BUN (9-20) mg/dL Creatinine (0.66-1.25) mg/dL Glucose (74-99) mg/dL POC Glucose (mg/dL) 120 H (75-99) mg/dL Plasma Lactic Acid Lorenzo (0.7-2.0) mmol/L Calcium (8.4-10.2) mg/dL Urine Blood (Negative) Urine RBC (0-5) /hpf Urine WBC (0-5) /hpf Diabetes panel 05/12/17 05/13/17 Range/Units 22:10 01:01 EST Sodium 136 L 134 L (137-145) mmol/L Potassium 5.3 H 3.9 (3.5-5.1) mmol/L Chloride 102 104 (98-107) mmol/L Carbon Dioxide 22 22 (22-30) mmol/L BUN 45 H 46 H (9-20) mg/dL Creatinine 1.50 H 1.70 H (0.66-1.25) mg/dL Glucose 337 H 203 H (74-99) mg/dL Calcium 9.1 8.3 L (8.4-10.2) mg/dL AST 22 (17-59) U/L ALT 22 (21-72) U/L Alkaline Phosphatase 89 (38-126) U/L Total Protein 7.1 (6.3-8.2) g/dL Albumin 3.7 (3.5-5.0) g/dL Calcium panel 05/12/17 05/13/17 Range/Units 22:10 01:01 EST Calcium 9.1 8.3 L (8.4-10.2) mg/dL Albumin 3.7 (3.5-5.0) g/dL Pituitary panel 05/12/17 05/13/17 Range/Units 22:10 01:01 EST Sodium 136 L 134 L (137-145) mmol/L Potassium 5.3 H 3.9 (3.5-5.1) mmol/L Chloride 102 104 (98-107) mmol/L Carbon Dioxide 22 22 (22-30) mmol/L BUN 45 H 46 H (9-20) mg/dL Creatinine 1.50 H 1.70 H (0.66-1.25) mg/dL Glucose 337 H 203 H (74-99) mg/dL Calcium 9.1 8.3 L (8.4-10.2) mg/dL Adrenal panel 05/12/17 05/13/17 Range/Units 22:10 01:01 EST Sodium 136 L 134 L (137-145) mmol/L Potassium 5.3 H 3.9 (3.5-5.1) mmol/L Chloride 102 104 (98-107) mmol/L Carbon Dioxide 22 22 (22-30) mmol/L BUN 45 H 46 H (9-20) mg/dL Creatinine 1.50 H 1.70 H (0.66-1.25) mg/dL Glucose 337 H 203 H (74-99) mg/dL Calcium 9.1 8.3 L (8.4-10.2) mg/dL Total Bilirubin 0.5 (0.2-1.3) mg/dL AST 22 (17-59) U/L ALT 22 (21-72) U/L Alkaline Phosphatase 89 (38-126) U/L Total Protein 7.1 (6.3-8.2) g/dL Albumin 3.7 (3.5-5.0) g/dL Assessment and Plan (1) UTI (urinary tract infection) Current Visit: Yes Status: Acute Code(s): N39.0 - URINARY TRACT INFECTION, SITE NOT SPECIFIED SNOMED Code(s): 37293162 (2) Urethral stricture unspecified Current Visit: Yes Status: Acute Code(s): N35.9 - URETHRAL STRICTURE, UNSPECIFIED SNOMED Code(s): 15450571 Plan: Continue IV antibiotics, pending urine and blood culture results. In the meantime, I have suggested that the patient continue to self catheterize 4 times daily.
[2017-05-13] MEDS: LACTULOSE 20 GM/30 ML CUP PO PRN (12:21)
[2017-05-13 12:28] LABS: Glucose,Whole Blood 85 mg/dL (75-99)
[2017-05-13 17:37] LABS: Glucose,Whole Blood 71 mg/dL (75-99)
[2017-05-13 18:37] LABS: Glucose,Whole Blood 70 mg/dL (75-99)
[2017-05-13 21:03] LABS: Glucose,Whole Blood 59 mg/dL (75-99)
[2017-05-13 21:04] LABS: Basophils % (A) 0 %; CH 30.1; CHCM 32.8; Eosinophils % (A) 0 %; HCT 29.9 % (39.0-53.0); HDW 3.06; HGB 9.4 gm/dL (13.0-17.5); Luc # (Auto) 0.13; Luc % (Auto) 1; Lymphocytes # (A) 0.9 k/uL (1.0-4.8); Lymphocytes % (A) 4 %; MCH 28.9 pg (25.0-35.0); MCHC 31.4 g/dL (31.0-37.0); MCV 92.2 fL (80.0-100.0); Mean Platelet Volume 6.5; Monocytes % (A) 5 %; Neutrophils # (A) 19.2 k/uL (1.3-7.7); Neutrophils % (A) 90 %; RBC 3.24 m/uL (4.30-5.90); RDW 14.2 % (11.5-15.5); WBC 21.4 k/uL (3.8-10.6); WBC (Perox) 21.46
[2017-05-13] MEDS ORDERED: DEXTROSE 50%-WATER 50 ML SYRINGE IVP STA (21:26)
[2017-05-13] MEDS: ATORVASTATIN 10 MG TAB PO SCH (22:01)
[2017-05-13 22:19] LABS: Glucose,Whole Blood 146 mg/dL (75-99)
[2017-05-13] MEDS: TAMSULOSIN 0.4 MG CAP.ER.24H PO SCH (22:42)
[2017-05-14] MEDS: HYDROmorphone 1 MG/ML 1 ML SYRINGE IVP PRN ×5 (00:25→21:44)
[2017-05-14] MEDS: INSULIN DETEMIR 100 UNIT/ML 10 ML VIAL SQ SCH ×2 (01:57→21:34)
[2017-05-14] MEDS: SODIUM CHLORIDE 0.9% 1,000 ML IV SCH ×3 (02:14→21:35)
[2017-05-14 07:43] LABS: Glucose,Whole Blood 64 mg/dL (75-99)
[2017-05-14] MEDS ORDERED: DEXTROSE 10 % IN WATER 250 ML IV STA (07:48)
[2017-05-14 08:07] LABS: CH 29.6; CHCM 32.4; HCT 28.9 % (39.0-53.0); HDW 3.06; HGB 9.3 gm/dL (13.0-17.5); Hypochromasia Slight; MCH 29.6 pg (25.0-35.0); MCHC 32.2 g/dL (31.0-37.0); MCV 91.9 fL (80.0-100.0); Mean Platelet Volume 6.8; RBC 3.14 m/uL (4.30-5.90); RDW 14.1 % (11.5-15.5)
[2017-05-14 08:13] LABS: Glucose,Whole Blood 111 mg/dL (75-99)
[2017-05-14 08:22] LABS: Calcium 8.3 mg/dL (8.4-10.2); Potassium 4.5 mmol/L (3.5-5.1)
[2017-05-14] MEDS: INSULIN LISPRO (humaLOG) 300 UNIT/3 ML VIAL SQ SCH ×3 (08:25→17:40)
[2017-05-14] MEDS: cefTRIAXone IN SWFI 1,000 MG/10 ML SYRINGE IVP SCH (09:08)
[2017-05-14] MEDS: POLYETHYLENE GLYCOL 3350 17 GM POWD.PACK PO SCH (09:09)
[2017-05-14] MEDS: PANTOPRAZOLE 40 MG TABLET PO SCH (09:09)
[2017-05-14] MEDS: FINASTERIDE 5 MG TAB PO SCH (09:09)
[2017-05-14] MEDS: METOPROLOL TARTRATE 50 MG TAB PO SCH ×2 (09:09→21:33)
--- NOTE | 2017-05-14 11:34 | P.PN ---
Subjective Progress Note Date: 05/14/17 Principal diagnosis: Hematuria Patient is feeling better, he had some blood with the bowel movement last night. Otherwise no chest pain, shortness of breath. No fevers or chills. Objective - Vital Signs Vital signs: Vital Signs Temp 99.9 F H 05/14/17 07:00 Pulse 67 05/14/17 07:00 Resp 16 05/14/17 07:00 BP 120/49 05/14/17 07:00 Pulse Ox 95 05/14/17 07:00 Intake & Output 05/13/17 05/14/17 05/14/17 18:59 06:59 18:59 Output Total 450 250 Balance -450 -250 Output: Urine 450 250 Other: Voiding Method Urinal Urinal Self-Catheterization Self-Catheterization - Labs CBC & Chem 7: 05/14/17 07:49 05/14/17 07:49 Labs: Abnormal Lab Results - Last 24 Hours (Table) 05/13/17 05/13/17 05/13/17 Range/Units 17:35 18:35 20:50 WBC 21.4 H (3.8-10.6) k/uL RBC 3.24 L (4.30-5.90) m/uL Hgb 9.4 L (13.0-17.5) gm/dL Hct 29.9 L (39.0-53.0) % Neutrophils # 19.2 H (1.3-7.7) k/uL Lymphocytes # 0.9 L (1.0-4.8) k/uL Sodium (137-145) mmol/L Carbon Dioxide (22-30) mmol/L BUN (9-20) mg/dL Creatinine (0.66-1.25) mg/dL POC Glucose (mg/dL) 71 L 70 L (75-99) mg/dL Calcium (8.4-10.2) mg/dL 05/13/17 05/13/17 05/14/17 Range/Units 21:02 22:18 07:32 WBC (3.8-10.6) k/uL RBC (4.30-5.90) m/uL Hgb (13.0-17.5) gm/dL Hct (39.0-53.0) % Neutrophils # (1.3-7.7) k/uL Lymphocytes # (1.0-4.8) k/uL Sodium (137-145) mmol/L Carbon Dioxide (22-30) mmol/L BUN (9-20) mg/dL Creatinine (0.66-1.25) mg/dL POC Glucose (mg/dL) 59 L 146 H 64 L (75-99) mg/dL Calcium (8.4-10.2) mg/dL 05/14/17 05/14/17 05/14/17 Range/Units 07:49 07:49 08:11 WBC 18.0 H (3.8-10.6) k/uL RBC 3.14 L (4.30-5.90) m/uL Hgb 9.3 L (13.0-17.5) gm/dL Hct 28.9 L (39.0-53.0) % Neutrophils # (1.3-7.7) k/uL Lymphocytes # (1.0-4.8) k/uL Sodium 134 L (137-145) mmol/L Carbon Dioxide 17 L (22-30) mmol/L BUN 53 H (9-20) mg/dL Creatinine 2.03 H (0.66-1.25) mg/dL POC Glucose (mg/dL) 111 H (75-99) mg/dL Calcium 8.3 L (8.4-10.2) mg/dL Microbiology - Last 24 Hours (Table) 05/12/17 22:10 Blood Culture Gram Stain - Preliminary Blood Blood Culture - Preliminary Presumptive MRSA 05/12/17 22:35 Urine Culture - Preliminary Urine,Clean Catch 05/12/17 22:10 Blood Culture - Final Blood Assessment and Plan Plan: (1) Acute sepsis/Bacteremia Likely 2/2 UTI likely caused by self cath Grew MRSA in the blood. Lactic acid and vitals normalized. Continue vancomycin and rocephine Consult ID IVF hydration with NS 0.9% (2) Hematuria Likely Eliquis side effect in the setting of self cath Urology to perform cysto today. (3) Acute renal failure Likely obstructive as U/S showed chronic bladder wall thickening sec to outlet obstruction. No hydronephrosis. Continue NS infusion Avoid nephrotoxic medications Follow urine output Follow Cr daily (4) New GI bleeding: Consult GI No hx of hemorrhoids (5) Right hip pain X-ray showing OA Symptomatic pain control PT Consider OP orthopedic evaluation , 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 (6) DM insulin dependant Continue with insulin sliding scale and long acting insulin at night (7) Paroxysmal A-fib Currently in sinus rhythm Eliquis on hold now due to acute hematuria Continue with BB (8) Benign hypertension Resume home meds (9) DVT prophylaxis SCDs bilateral legs
[2017-05-14] MEDS ORDERED: IV FLUID CONTINUATION 1,000 ML IV ONE (11:53)
--- NOTE | 2017-05-14 12:00 | P.PN ---
Progress Note - Text Progress Note Date: 05/14/17 Mr. Leslie has experienced difficulty emptying his bladder, as clots have occluded the catheter. He is afebrile, but blood cultures show MRSA. He will undergo cystoscopy, urethral dilation and/or DVIU, and possible irrigation of clots. The rationale and risks associated with this procedure were reviewed with him.
[2017-05-14] MEDS ORDERED: ONDANSETRON 4 MG/2 ML VIAL IVP ONE (12:02)
[2017-05-14] MEDS ORDERED: DEXAMETHASONE SOD PHOS (MDV) 100 MG/10 ML VIAL IVP ONE (12:03)
[2017-05-14 12:17] LABS: Glucose,Whole Blood 94 mg/dL (75-99)
[2017-05-14] MEDS ORDERED: ePHEDrine SULFATE/0.9% NACL/PF 50 MG/5 ML SYRINGE IV ONE (12:20)
[2017-05-14] MEDS ORDERED: PHENYLEPHRINE-0.9% NACL SYG 1 MG/10 ML SYRINGE ONE (12:20)
[2017-05-14] MEDS ORDERED: SUCCINYLCHOLINE CHLORIDE 100 MG/5 ML SYR IV ONE (12:20)
[2017-05-14] MEDS ORDERED: LIDOCAINE 1% INJ 10MG/ML (20 ML MDV) ONE (12:20)
[2017-05-14] MEDS ORDERED: PROPOFOL 10 MG/ML 20 ML VIAL IV ONE (12:20)
[2017-05-14] MEDS ORDERED: fentaNYL (PF) 50 MCG/ML 2 ML AMP ONE (12:20)
[2017-05-14] MEDS ORDERED: LACTATED RINGERS 1,000 ML IV ONE (12:57)
--- NOTE | 2017-05-14 13:14 | P.OP ---
Date of Procedure: 05/14/17 Preoperative Diagnosis: Urethral stricture, gross hematuria, UTI. Postoperative Diagnosis: Same Procedure(s) Performed: Cystoscopy with urethral dilation and Ramesh catheter insertion Anesthesia: CAITLIN Surgeon: Martin Bridges Estimated Blood Loss (ml): 10 IV fluids (ml): 400 Pathology: none sent Condition: stable Disposition: PACU Indications for Procedure: The patient is an 81-year-old white male with a known stricture at the bulbomembranous urethra. He has chronic urinary retention, for which she performs self-catheterization. He was recently admitted with right lower extremity pain and weakness, and has been found to have MRSA in a blood culture. He has experienced difficulty catheterizing himself, and his catheters have been occluded by clots. Operative Findings: Bulbomembranous urethral stricture. High prostatic median bar. Description of Procedure: The patient was taken to the operating room and placed in the dorsolithotomy position, with legs supported in Ralph stirrups. The external genitalia was prepped and draped sterilely. The 30 lens was used to introduce the 17-Palestinian Stortz cystoscopic sheath through the urethra under direct vision. A bulbomembranous urethral stricture was identified, through which the cystoscope was gently advanced. Within the prostatic urethra, a high median bar was noted and advancement of the cystoscope resulted and a false passage posteriorly, to the right of the midline. A 0.038 inch Glidewire was passed through the cystoscope. The Glidewire was advanced through the vesical neck and into the bladder. Next, urethral dilators were used to dilate the urethra to 20-Palestinian. The 16-Palestinian Olympus flexible cystoscope was then passed over the wire, into the bladder. The bladder was inspected, but visualization was somewhat limited. The bladder was noted to be trabeculated, with small diverticuli seen. No tumors or foreign bodies were seen. There was no active bleeding. The Glidewire was passed through the cystoscope, which was removed. Attempts were made to pass a 20-Palestinian Ramesh catheter over the wire, and subsequently an 18-Palestinian catheter, but both were unsuccessful. Ultimately, a 16-Palestinian catheter was passed over the wire, draining pink tinged urine. The catheters was connected to gravity drainage and the procedure was terminated. The patient tolerated the procedure well was taken to the recovery room in stable condition.
[2017-05-14] MEDS: VANCOMYCIN 1,750 MG in SODIUM CHLORIDE 0.9% 250 ML IVPB SCH ×2 (13:19→14:13)
[2017-05-14] MEDS ORDERED: SODIUM CHLORIDE 0.9% 1,000 ML IV ONE ×2 (13:19)
[2017-05-14 13:45] LABS: Glucose,Whole Blood 108 mg/dL (75-99)
--- NOTE | 2017-05-14 15:24 | CDI ---
In responding to this query, please exercise your independent professional judgment. The [facility] Coding Staff and Clinical Documentation Specialists appreciate your assistance in clarifying documentation, maintaining compliance with coding guidelines, accurately documenting patients condition and capturing severity of illness. The fact that a question is asked does not imply that any particular answer is desired or expected. Communication forms are a method of clarifying documentation and are not made part of the Legal Health Record. Thank you in advance for your clarification. Last Revision, May 2015 Anderson Dinh [address] [facility] [place] [address] Documentation Clarification Form Date: 05/14/2017 3:14:00 PM From: Elizabeth Vivar CCS, CCDS Admit Date: 05/12/2017 11:50:00 PM Patient Name: Jose Angel Leslie Visit Number: [id number] Discharge Date: Dr. Tony Madera: History/Risk Factors: Admit with hematuria, patient has paroxysmal A Fib on Eliquis, history of BPH resulting in urinary retention and self caths with frequent UTIs. Current BUN/CR/GFR: 53 / 2.03 / 38 Patients Baseline: Creatinine: 1.5 Clinical Indicators: Positive UA, elevated lactic acid. Admission BUN 45, Cr 1.50 Treatment: IV fluids, IV antibiotics, IV Morphine, IV Zofran, IV Levaquin, IV Dilaudid Urology procedure: Cystoscopy with urethral dilation & robertson cath insertion In order to capture the severity of condition, please clarify if the condition signifies: CKD Stage 1 (GFR > 90) CKD Stage 2 (GFR 60-89) CKD Stage 3 (GFR 30-59) CKD Stage 4 (GFR 15-29) CKD Stage 5 (GFR <15) ESRD Unable to determine Other condition, please specify Please document in your progress notes and discharge summary in order to capture severity of illness and risk of mortality. Include clinical findings that support your diagnosis. FYI: Press F11 to launch patient chart. IRENE
[2017-05-14 17:58] LABS: Glucose,Whole Blood 122 mg/dL (75-99)
[2017-05-14] MEDS: TAMSULOSIN 0.4 MG CAP.ER.24H PO SCH (18:41)
[2017-05-14 20:45] LABS: Glucose,Whole Blood 149 mg/dL (75-99)
[2017-05-14] MEDS: ATORVASTATIN 10 MG TAB PO SCH (21:33)
--- NOTE | 2017-05-14 23:28 | P.CONS ---
History of Present Illness - Reason for Consult Consult date: 05/14/17 - Chief Complaint Hematuria and fever - History of Present Illness 81-year-old male that is a history of multiple medical troubles that include urinary retention. The patient routinely straight caths 4 times per day. Relates over the last months has had increasing difficulties with self catheterization. Red rubber catheter required transition to a stiffer catheter to allow insertion.. The patient then started having further difficulties in need to be changed to a coud catheter for catheterization. The patient then started to have difficulties with hematuria. And then developed clots and was no longer able to pass any urine. And consequently presented to Hospital. He has been seen by urology and cystoscopy was performed with placement at that time of Ramesh catheter. Patient has evidence of sepsis in the infectious diseases consultation was requested. Patient relates started to feel slightly better. He felt very poorly at admission with fever and malaise. Review of Systems 81-year-old male who is still uncomfortable HEENT:Denies headache or acute visual change. Denies sinus or mouth discomforts. Denies neck stiffness or pain. Denies significant oral cavity pain. Denies difficulty on swallowing. Lungs: Denies significant shortness of breath, cough, sputum production, or hemoptysis. Cardiovascular: Denies significant shortness of breath, chest pain, chest wall pain, orthopnea, dyspnea on exertion, syncope Gastrointestinal:Denies nausea, vomiting, diarrhea, constipation, hematemesis, melena, hematochezia. No no significant change of bowel habit noticed. Musculoskeletal: denies significant myalgias or arthralgias. No new joint swelling. Denies new back pain. Skin: Denies new rash or lesions. No new ulcers or wounds are related.. Neuro: Denies headache or visual change. Denies any new onset weakness or difficulty with ambulation. Denies falls or seizures. Psychiatric:Denies anxiety or depression. Endocrine: Fatigue but weight is stable Urologic as per HPI Past Medical History Past Medical History: Coronary Artery Disease (CAD), Diabetes Mellitus, Hyperlipidemia, Hypertension, Prostate Disorder Additional Past Medical History / Comment(s): SHINGLES 3 YEARS AGO History of Any Multi-Drug Resistant Organisms: MRSA Year Discovered:: 05/12/17 MDRO Source:: BLOOD Past Surgical History: No Surgical Hx Reported Additional Past Surgical History / Comment(s): SELENE CATARACTS, COLONOSCOPY/ POLYPECTOMY(BENIGN), orthopedic surgery when he was a child, cystoscopy last year Past Anesthesia/Blood Transfusion Reactions: No Reported Reaction Past Psychological History: No Psychological Hx Reported Additional Psychological History / Comment(s): . 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 No international travel since. No animal exposures. Reformed smoker. No history of significant alcohol or recreational drug use Smoking Status: Former smoker Past Alcohol Use History: None Reported Past Drug Use History: None Reported - Past Family History Father Family Medical History: Cancer Mother Family Medical History: Cancer Additional Family Medical History / Comment(s): BREAST CANCER Medications and Allergies Home Medications and Allergies Comment(s): Current Medications Acetaminophen (Tylenol Tab) 650 mg PO Q6HR PRN PRN Reason: Mild Pain or Fever > 100.5 Hydrocodone Bitart/Acetaminophen ([place] 5-325) 1 each PO Q4HR PRN PRN Reason: Moderate Pain Last Admin: 05/13/17 14:16 Dose: 1 each Atorvastatin Calcium (Lipitor) 5 mg PO HS [facility] Last Admin: 05/14/17 21:33 Dose: 5 mg Finasteride (Proscar) 5 mg PO DAILY [facility] Last Admin: 05/14/17 09:09 Dose: Not Given Hydromorphone HCl (Dilaudid) 0.5 mg IVP Q3HR PRN PRN Reason: Severe Pain Last Admin: 05/14/17 21:44 Dose: 0.5 mg Vancomycin HCl 1,750 mg/ (Sodium Chloride) 250 mls @ 125 mls/hr IVPB Q24H [facility] Last Admin: 05/14/17 14:13 Dose: 125 mls Sodium Chloride (Saline 0.9%) 1,000 mls @ 50 mls/hr IV .Q20H [facility] Last Admin: 05/14/17 21:35 Dose: 50 mls/hr Insulin Detemir (Levemir) 10 unit SQ HS [facility] Last Admin: 05/14/17 21:34 Dose: 10 unit Insulin Human Lispro (Humalog) 0 unit SQ ACHS NUZHAT PRN Reason: Protocol Last Admin: 05/14/17 17:40 Dose: Not Given Lactulose (Cephulac) 20 gm PO QID PRN PRN Reason: Constipation Last Admin: 05/13/17 12:21 Dose: 20 gm Metoprolol Tartrate (Lopressor) 50 mg PO BID [facility] Last Admin: 05/14/17 21:33 Dose: 50 mg Morphine Sulfate (Morphine Sulfate (Inj)) 4 mg IV Q4HR PRN PRN Reason: Severe Pain Naloxone HCl (Narcan) 0.2 mg IV Q2M PRN PRN Reason: Opioid Reversal Pantoprazole Sodium (Protonix) 40 mg PO AC-BRKFST [facility] Last Admin: 05/14/17 09:09 Dose: Not Given Polyethylene Glycol (Miralax) 17 gm PO DAILY [facility] Last Admin: 05/14/17 09:09 Dose: Not Given Tamsulosin HCl (Flomax) 0.4 mg PO PC-SUPPER [facility] Last Admin: 05/14/17 18:41 Dose: 0.4 mg Home Medications Medication Instructions Recorded Confirmed Type Finasteride [Proscar] 5 mg PO DAILY 05/25/16 05/13/17 History Metoprolol Tartrate [Lopressor] 50 mg PO BID #60 tab 05/31/16 05/13/17 Rx Acetaminophen-Codeine 300-30mg 1 tab PO TID PRN 05/13/17 05/13/17 History [Tylenol #3] Apixaban [Eliquis] 5 mg PO BID 05/13/17 05/13/17 History Atorvastatin [Lipitor] 20 mg PO DAILY 05/13/17 05/13/17 History Furosemide [Lasix] 20 mg PO DAILY 05/13/17 05/13/17 History Insulin Degludec [Tresiba 40 unit SQ HS 05/13/17 05/13/17 History Flextouch U-100] amLODIPine BESYLATE [Norvasc] 5 mg PO DAILY 05/13/17 05/13/17 History methylPREDNISolone [Medrol Dose See Taper PO DIRECTED 05/13/17 05/13/17 History Pack] Allergies Allergy/AdvReac Type Severity Reaction Status Date / Time No Known Allergies Allergy Verified 05/25/16 13:00 Physical Exam Vitals: Vital Signs Temp Pulse Pulse Resp BP BP Pulse Ox 05/14/17 23:00 98.1 F 74 18 137/63 96 05/14/17 21:32 80 161/69 05/14/17 15:30 76 16 138/65 95 05/14/17 15:15 76 16 138/73 97 05/14/17 15:06 16 05/14/17 15:00 97.1 F L 78 16 147/72 96 05/14/17 14:50 16 05/14/17 14:04 71 16 142/55 94 L 05/14/17 13:49 74 18 147/66 95 05/14/17 13:34 70 18 150/67 100 05/14/17 13:19 97.2 F L 75 16 127/61 99 05/14/17 11:59 98.1 F 71 18 173/66 97 05/14/17 11:17 16 05/14/17 08:00 16 05/14/17 07:00 99.9 F H 67 16 120/49 95 Intake and Output 05/14/17 05/14/17 05/15/17 14:59 22:59 06:59 Intake Total 725 Output Total 10 Balance 715 Intake: IV 725 Output: Estimated Blood Loss 10 Other: Voiding Method Indwelling Catheter Indwelling Catheter 81-year-old male comfortable at this time HEENT: Anicteric conjunctiva are pink and moist nasal mucosa grossly intact without significant lesions, there is no thrush. Neck: The neck is supple without significant lymphadenopathy or thyromegaly. Lungs: Good bilateral air entry without significant crackles or wheezing. There is no significant bronchial sounds. There is no egophony or dullness. Heart: Regular rate and rhythm with an audible S1-S2, no S3 no S4. There is no significant murmur click or rub, PMI was nondisplaced. Abdomen: Obese Positive bowel sounds soft suprapubic tenderness, without palpable masses or organomegaly. There was no guarding or rebound. No flank tenderness Extremities: The upper extremities have excellent pulses they are symmetric, no significant petechiae or telangiectasia. No splinter hemorrhages were noted. The lower extremities are free from significant edema. The peripheral pulses were 2+ and symmetric. Neuro: Awake alert oriented to person place and time. There are no acute new gross focal sensory motor deficits. Results CBC & Chem 7: 05/14/17 07:49 05/14/17 07:49 Labs: Abnormal Lab Results - Last 24 Hours (Table) 05/14/17 05/14/17 05/14/17 Range/Units 07:32 07:49 07:49 WBC 18.0 H (3.8-10.6) k/uL RBC 3.14 L (4.30-5.90) m/uL Hgb 9.3 L (13.0-17.5) gm/dL Hct 28.9 L (39.0-53.0) % ESR (0-15) mm/hr Sodium 134 L (137-145) mmol/L Carbon Dioxide 17 L (22-30) mmol/L BUN 53 H (9-20) mg/dL Creatinine 2.03 H (0.66-1.25) mg/dL POC Glucose (mg/dL) 64 L (75-99) mg/dL Calcium 8.3 L (8.4-10.2) mg/dL C-Reactive Protein (<10.0) mg/L 05/14/17 05/14/17 05/14/17 Range/Units 08:11 13:43 17:09 WBC (3.8-10.6) k/uL RBC (4.30-5.90) m/uL Hgb (13.0-17.5) gm/dL Hct (39.0-53.0) % ESR 80 H (0-15) mm/hr Sodium (137-145) mmol/L Carbon Dioxide (22-30) mmol/L BUN (9-20) mg/dL Creatinine (0.66-1.25) mg/dL POC Glucose (mg/dL) 111 H 108 H (75-99) mg/dL Calcium (8.4-10.2) mg/dL C-Reactive Protein (<10.0) mg/L 05/14/17 05/14/17 05/14/17 Range/Units 17:09 17:37 20:44 WBC (3.8-10.6) k/uL RBC (4.30-5.90) m/uL Hgb (13.0-17.5) gm/dL Hct (39.0-53.0) % ESR (0-15) mm/hr Sodium (137-145) mmol/L Carbon Dioxide (22-30) mmol/L BUN (9-20) mg/dL Creatinine (0.66-1.25) mg/dL POC Glucose (mg/dL) 122 H 149 H (75-99) mg/dL Calcium (8.4-10.2) mg/dL C-Reactive Protein 309.2 H (<10.0) mg/L Microbiology - Last 24 Hours (Table) 05/12/17 22:35 Urine Culture - Preliminary Urine,Clean Catch Presumptive Staph aureus Strep agalactiae - (group b) 05/12/17 22:10 Blood Culture Gram Stain - Preliminary Blood Blood Culture - Preliminary Presumptive MRSA Laboratory Results WBC 18.0 k/uL (3.8-10.6) H 05/14/17 07:49 RBC 3.14 m/uL (4.30-5.90) L 05/14/17 07:49 Hgb 9.3 gm/dL (13.0-17.5) L 05/14/17 07:49 Hct 28.9 % (39.0-53.0) L 05/14/17 07:49 MCV 91.9 fL (80.0-100.0) 05/14/17 07:49 MCH 29.6 pg (25.0-35.0) 05/14/17 07:49 MCHC 32.2 g/dL (31.0-37.0) 05/14/17 07:49 RDW 14.1 % (11.5-15.5) 05/14/17 07:49 Plt Count 200 k/uL (150-450) 05/14/17 07:49 Neutrophils % 90 % 05/13/17 20:50 Lymphocytes % 4 % 05/13/17 20:50 Monocytes % 5 % 05/13/17 20:50 Eosinophils % 0 % 05/13/17 20:50 Basophils % 0 % 05/13/17 20:50 Neutrophils # 19.2 k/uL (1.3-7.7) H 05/13/17 20:50 Lymphocytes # 0.9 k/uL (1.0-4.8) L 05/13/17 20:50 Monocytes # 1.0 k/uL (0-1.0) 05/13/17 20:50 Eosinophils # 0.0 k/uL (0-0.7) 05/13/17 20:50 Basophils # 0.0 k/uL (0-0.2) 05/13/17 20:50 Hypochromasia Slight 05/14/17 07:49 ESR 80 mm/hr (0-15) H 05/14/17 17:09 PT 10.8 sec (9.0-12.0) 05/12/17 22:10 INR 1.1 (<1.2) 05/12/17 22:10 APTT 20.2 sec (22.0-30.0) L 05/12/17 22:10 Sodium 134 mmol/L (137-145) L 05/14/17 07:49 Potassium 4.5 mmol/L (3.5-5.1) 05/14/17 07:49 Chloride 107 mmol/L (98-107) 05/14/17 07:49 Carbon Dioxide 17 mmol/L (22-30) L 05/14/17 07:49 Anion Gap 10 mmol/L 05/14/17 07:49 BUN 53 mg/dL (9-20) H 05/14/17 07:49 Creatinine 2.03 mg/dL (0.66-1.25) H 05/14/17 07:49 Est GFR (MDRD) Af Amer 38 (>60 ml/min/1.73 sqM) 05/14/17 07:49 Est GFR (MDRD) Non-Af 32 (>60 ml/min/1.73 sqM) 05/14/17 07:49 Glucose 98 mg/dL (74-99) 05/14/17 07:49 POC Glucose (mg/dL) 149 mg/dL (75-99) H 05/14/17 20:44 POC Glu Hypnotherapist Renetta Edmond 05/14/17 20:44 Lactic Ac Sepsis Rflx Y 05/12/17 22:51 Plasma Lactic Acid Lorenzo 1.9 mmol/L (0.7-2.0) 05/13/17 01:00 EST Calcium 8.3 mg/dL (8.4-10.2) L 05/14/17 07:49 Total Bilirubin 0.5 mg/dL (0.2-1.3) 05/12/17 22:10 AST 22 U/L (17-59) 05/12/17 22:10 ALT 22 U/L (21-72) 05/12/17 22:10 Alkaline Phosphatase 89 U/L (38-126) 05/12/17 22:10 C-Reactive Protein 309.2 mg/L (<10.0) H 05/14/17 17:09 Total Protein 7.1 g/dL (6.3-8.2) 05/12/17 22:10 Albumin 3.7 g/dL (3.5-5.0) 05/12/17 22:10 Urine Color Dark Red 05/12/17 22:35 Urine Appearance Bloody (Clear) 05/12/17 22:35 Urine Blood Large (Negative) H 05/12/17 22:35 Urine RBC >182 /hpf (0-5) H 05/12/17 22:35 Urine WBC >182 /hpf (0-5) H 05/12/17 22:35 Stool Occult Blood Positive (Negative) 05/13/17 20:50 Acetone, Qual Negative (Negative) 05/12/17 22:10 Influenza Type A RNA Not Detected (Not Detectd) 05/12/17 22:25 Influenza Type B (PCR) Not Detected (Not Detectd) 05/12/17 22:25 Microbiology 05/12/17 22:35 Urine,Clean Catch Urine Culture - Preliminary Presumptive Staph aureus Strep agalactiae - (group b) 05/12/17 22:10 Blood Blood Culture Gram Stain - Preliminary 05/12/17 22:10 Blood Blood Culture - Preliminary Presumptive MRSA Assessment and Plan (1) UTI (urinary tract infection) Narrative/Plan: 81-year-old male presents to hospital with difficulties related to his urinary system. He has urinary retention and straight cath multiple times per day. Recently was having difficulties and was transitioned to a coud catheter. Despite that was unable to pass urine was having blood clots. He subsequently was admitted and has had cystoscopy with Ramesh catheter placement by urology. Urine culture and blood cultures reveal evidence of staph aureus likely MRSA as well as a strep. Antimicrobial therapy with vancomycin has been initiated. Follow blood cultures are requested Patient is more comfortable today. Will need outpatient intravenous antimicrobial therapy. Discharge once we have clearance of his bacteremia PICC line can be placed Current Visit: Yes Status: Acute Code(s): N39.0 - URINARY TRACT INFECTION, SITE NOT SPECIFIED SNOMED Code(s): 31398051 (2) MRSA bacteremia Current Visit: Yes Status: Acute Code(s): R78.81 - BACTEREMIA SNOMED Code( s): 39137319124291779 (3) Urethral obstruction Current Visit: Yes Status: Acute Code(s): N36.8 - OTHER SPECIFIED DISORDERS OF URETHRA SNOMED Code(s): 93929049 (4) Leukocytosis Current Visit: Yes Status: Acute Code(s): D72.829 - ELEVATED WHITE BLOOD CELL COUNT, UNSPECIFIED SNOMED Code(s): 192785598
[2017-05-15 02:02] LABS: Glucose,Whole Blood 159 mg/dL (75-99)
[2017-05-15] MEDS: INSULIN LISPRO (humaLOG) 300 UNIT/3 ML VIAL SQ SCH ×5 (02:14→20:41)
[2017-05-15] MEDS: HYDROcodone/APAP 5-325MG 1 EACH TAB PO PRN ×4 (05:27→22:22)
--- NOTE | 2017-05-15 07:53 | P.PN ---
Progress Note - Text Progress Note Date: 05/15/17 Mr. Leslie is feeling somewhat better today. He reports intermittent bladder discomfort, likely due to bladder spasms. He is afebrile. Preliminary urine cultures have shown staph aureus, and blood cultures have shown MRSA. He is currently receiving vancomycin. His Ramesh catheters draining clear yellow urine. I'm concerned that he will again experienced difficulty catheterizing upon removal of his Ramesh catheter. In view of this, the catheter will remain in place for 10-14 days to allow healing of the prostatic urethra.
[2017-05-15 07:58] LABS: Glucose,Whole Blood 178 mg/dL (75-99)
[2017-05-15] MEDS: METOPROLOL TARTRATE 50 MG TAB PO SCH ×2 (08:09→20:40)
[2017-05-15] MEDS: FINASTERIDE 5 MG TAB PO SCH (08:09)
[2017-05-15] MEDS: PANTOPRAZOLE 40 MG TABLET PO SCH (08:09)
[2017-05-15] MEDS: POLYETHYLENE GLYCOL 3350 17 GM POWD.PACK PO SCH (08:12)
[2017-05-15 08:28] LABS: Basophils % (A) 0 %; CH 29.2; CHCM 31.6; Eosinophils % (A) 0 %; HCT 31.4 % (39.0-53.0); HDW 2.77; HGB 9.7 gm/dL (13.0-17.5); Hypochromasia Slight; Luc # (Auto) 0.14; Luc % (Auto) 1; Lymphocytes # (A) 0.6 k/uL (1.0-4.8); Lymphocytes % (A) 3 %; MCH 28.6 pg (25.0-35.0); MCHC 30.8 g/dL (31.0-37.0); MCV 92.9 fL (80.0-100.0); Mean Platelet Volume 7.2; Monocytes # (A) 0.6 k/uL (0-1.0); Monocytes % (A) 3 %; Neutrophils % (A) 93 %; RBC 3.38 m/uL (4.30-5.90); RDW 15.2 % (11.5-15.5); WBC 20.4 k/uL (3.8-10.6); WBC (Perox) 21.73
[2017-05-15 08:48] LABS: Calcium 8.3 mg/dL (8.4-10.2); Potassium 5.4 mmol/L (3.5-5.1)
--- NOTE | 2017-05-15 11:11 | P.PN ---
Subjective Principal diagnosis: Hematuria. Patient is s/p cystoscopy with urethral dilation and Ramesh catheter insertion. Currently urine starting to clear up. Otherwise no chest pain or abdominal pain , no shortness of breath. No fevers or chills. Objective - Vital Signs Vital signs: Vital Signs Temp 97.2 F L 05/15/17 07:00 Pulse 105 H 05/15/17 07:00 Resp 16 05/15/17 07:00 BP 128/61 05/15/17 07:00 Pulse Ox 97 05/15/17 07:00 Intake & Output 05/14/17 05/15/17 05/15/17 18:59 06:59 18:59 Intake Total 725 Output Total 10 400 Balance 715 -400 Intake: IV 725 Output: Urine 400 Estimated Blood Loss 10 Other: Voiding Method Indwelling Catheter Indwelling Catheter - Exam Constitutional: No acute distress, conversant, pleasant Eyes:Anicteric sclerae, moist conjunctiva, no lid-lag, PERRLA, ENMT: Oropharynx clear, no erythema, exudates Neck: Supple, FROM, no masses, or JVD, No carotid bruits, No thyromegaly Lungs: Clear to auscultation, Clear to percussion, Normal respiratory effort, no accessory muscle use Cardiovascular: Heart regular in rate and rhythm, No murmurs, gallops, or rubs, No peripheral edema Abdominal: Soft, Nontender, no guarding, rebound or rigidity, Normoactive bowel sounds, No hepatomegaly, No splenomegaly, No palpable mass Skin: Normal temperature, tone, texture, turgor, no induration, No subcutaneous nodules, No rash, lesions, No ulcers Extremities: No digital cyanosis, No clubbing, Pedal pulses intact and symmetrical, Radial pulses intact and symmetrical, No calf tenderness Psychiatric: Alert and oriented to person, place and time, appropriate affect, intact judgement Neuro: Muscles Strength 5/5 in all 4 extremities, Sensation to light touch grossly present throughout, Cranial nerves II-XII grossly intact, no focal sensory deficits - Labs CBC & Chem 7: 05/15/17 07:46 05/15/17 07:46 Labs: Abnormal Lab Results - Last 24 Hours (Table) 05/14/17 05/14/17 05/14/17 Range/Units 07:49 13:43 17:09 WBC (3.8-10.6) k/uL RBC (4.30-5.90) m/uL Hgb (13.0-17.5) gm/dL Hct (39.0-53.0) % MCHC (31.0-37.0) g/dL Neutrophils # (1.3-7.7) k/uL Lymphocytes # (1.0-4.8) k/uL ESR 80 H (0-15) mm/hr Sodium (137-145) mmol/L Potassium (3.5-5.1) mmol/L Carbon Dioxide (22-30) mmol/L BUN (9-20) mg/dL Creatinine (0.66-1.25) mg/dL Glucose (74-99) mg/dL POC Glucose (mg/dL) 108 H (75-99) mg/dL Hemoglobin A1c 7.2 H (4.0-6.0) % Calcium (8.4-10.2) mg/dL C-Reactive Protein (<10.0) mg/L 05/14/17 05/14/17 05/14/17 Range/Units 17:09 17:37 20:44 WBC (3.8-10.6) k/uL RBC (4.30-5.90) m/uL Hgb (13.0-17.5) gm/dL Hct (39.0-53.0) % MCHC (31.0-37.0) g/dL Neutrophils # (1.3-7.7) k/uL Lymphocytes # (1.0-4.8) k/uL ESR (0-15) mm/hr Sodium (137-145) mmol/L Potassium (3.5-5.1) mmol/L Carbon Dioxide (22-30) mmol/L BUN (9-20) mg/dL Creatinine (0.66-1.25) mg/dL Glucose (74-99) mg/dL POC Glucose (mg/dL) 122 H 149 H (75-99) mg/dL Hemoglobin A1c (4.0-6.0) % Calcium (8.4-10.2) mg/dL C-Reactive Protein 309.2 H (<10.0) mg/L 05/15/17 05/15/17 05/15/17 Range/Units 02:01 07:41 07:46 WBC 20.4 H (3.8-10.6) k/uL RBC 3.38 L (4.30-5.90) m/uL Hgb 9.7 L (13.0-17.5) gm/dL Hct 31.4 L (39.0-53.0) % MCHC 30.8 L (31.0-37.0) g/dL Neutrophils # 19.0 H (1.3-7.7) k/uL Lymphocytes # 0.6 L (1.0-4.8) k/uL ESR (0-15) mm/hr Sodium (137-145) mmol/L Potassium (3.5-5.1) mmol/L Carbon Dioxide (22-30) mmol/L BUN (9-20) mg/dL Creatinine (0.66-1.25) mg/dL Glucose (74-99) mg/dL POC Glucose (mg/dL) 159 H 178 H (75-99) mg/dL Hemoglobin A1c (4.0-6.0) % Calcium (8.4-10.2) mg/dL C-Reactive Protein (<10.0) mg/L 05/15/17 Range/Units 07:46 WBC (3.8-10.6) k/uL RBC (4.30-5.90) m/uL Hgb (13.0-17.5) gm/dL Hct (39.0-53.0) % MCHC (31.0-37.0) g/dL Neutrophils # (1.3-7.7) k/uL Lymphocytes # (1.0-4.8) k/uL ESR (0-15) mm/hr Sodium 134 L (137-145) mmol/L Potassium 5.4 H (3.5-5.1) mmol/L Carbon Dioxide 18 L (22-30) mmol/L BUN 53 H (9-20) mg/dL Creatinine 2.26 H (0.66-1.25) mg/dL Glucose 156 H (74-99) mg/dL POC Glucose (mg/dL) (75-99) mg/dL Hemoglobin A1c (4.0-6.0) % Calcium 8.3 L (8.4-10.2) mg/dL C-Reactive Protein (<10.0) mg/L Microbiology - Last 24 Hours (Table) 05/12/17 22:35 Urine Culture - Final Urine,Clean Catch Methicillin resist S. aureus Strep agalactiae - (group b) 05/12/17 22:10 Blood Culture Gram Stain - Final Blood Blood Culture - Final Methicillin resist S. aureus 05/14/17 09:37 Blood Culture - Preliminary Blood Assessment and Plan Plan: (1) Acute sepsis/Bacteremia Likely 2/2 UTI likely caused by self cath Grew MRSA in the blood. Lactic acid and vitals normalized. Continue vancomycin and rocephine ID recommends PICC line placement for 2-4 weeks of antibiotics treatment, d/w ID & social media intern IVF hydration with NS 0.9% (2) Hematuria Likely Eliquis side effect in the setting of self cath S/p cystoscopy with urethral dilation and Ramesh catheter insertion (3) Acute renal failure Likely obstructive as U/S showed chronic bladder wall thickening sec to outlet obstruction. No hydronephrosis. Continue NS infusion Avoid nephrotoxic medications Follow urine output Follow Cr daily (4) New GI bleeding: No further episodes of bleeding Consult GI (5) Right hip pain X-ray showing OA Symptomatic pain control PT/OT Consider OP orthopedic evaluation , 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 (6) DM insulin dependant Continue with insulin sliding scale and long acting insulin at night Check blood sugars every before meals and chest (7) Paroxysmal A-fib Currently in sinus rhythm Eliquis on hold now due to acute hematuria Continue with BB (8) Benign hypertension Resume home meds (9) DVT prophylaxis SCDs bilateral legs
--- NOTE | 2017-05-15 11:26 | P.CONS ---
History of Present Illness - Reason for Consult Consult date: 05/15/17 rectal bleeding Requesting physician: Yaya Sim - History of Present Illness 81-year-old gentleman with a history of chronic atrial fibrillation with ELIQUIS monitoring admitted with urinary retention hematuria urethral stricture status post cystoscopy with urethral dilation and placement of Ramesh catheter yesterday. Patient passed a bowel movement on Sunday that was blood tinged. Nursing states that he had a bowel movement yesterday that was nonbloody. Hemoccult stool positive. Hemoglobin on admission 11.7 over the last few days in the 9 range presently 9.7. MCV 92. Platelet 222. INR 1.1. Denies melena or hematemesis. No abdominal pain. Antiplatelet medications on hold. Colonoscopy 5-6 years ago to his memory was normal. Review of Systems Constitutional: Denies fever, chills, sweats, weight gain, or loss. HEENT: Negative for migraines, blurred vision or loss, earaches, drainage, tinnitus, oral mucosal lesions, dysphagia, or odynophagia. Cardiac: Atrial fibrillation. Hypertension. Hyperlipidemia. Negative for chest pain, arrhythmias, or palpitation. Respiratory: Negative for shortness of breath, hemoptysis, cough, or sputum production. Gastrointestinal: See HPI for pertinent findings. Genitourinary: Urinary retention with hematuria see HPI denies penile discharge. Musculoskeletal: Negative for muscle aches, swelling, arthritis, and arthralgias. Neurologic: Negative for stroke or TIA. Endocrine: Diabetes mellitus. Negative for thyroid problems. Skin: Negative for rash or itching. Psychiatric: Negative history for depression and anxiety Past Medical History Past Medical History: Coronary Artery Disease (CAD), Diabetes Mellitus, Hyperlipidemia, Hypertension, Prostate Disorder Additional Past Medical History / Comment(s): SHINGLES 3 YEARS AGO History of Any Multi-Drug Resistant Organisms: MRSA Year Discovered:: 05/12/17 MDRO Source:: BLOOD Past Surgical History: No Surgical Hx Reported Additional Past Surgical History / Comment(s): SELENE CATARACTS, COLONOSCOPY/ POLYPECTOMY(BENIGN), orthopedic surgery when he was a child, cystoscopy last year Past Anesthesia/Blood Transfusion Reactions: No Reported Reaction Past Psychological History: No Psychological Hx Reported Additional Psychological History / Comment(s): . 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 No international travel since. No animal exposures. Reformed smoker. No history of significant alcohol or recreational drug use Smoking Status: Former smoker Past Alcohol Use History: None Reported Past Drug Use History: None Reported - Past Family History Father Family Medical History: Cancer Mother Family Medical History: Cancer Additional Family Medical History / Comment(s): BREAST CANCER Medications and Allergies Home Medications Medication Instructions Recorded Confirmed Type Finasteride [Proscar] 5 mg PO DAILY 05/25/16 05/13/17 History Metoprolol Tartrate [Lopressor] 50 mg PO BID #60 tab 05/31/16 05/13/17 Rx Acetaminophen-Codeine 300-30mg 1 tab PO TID PRN 05/13/17 05/13/17 History [Tylenol #3] Apixaban [Eliquis] 5 mg PO BID 05/13/17 05/13/17 History Atorvastatin [Lipitor] 20 mg PO DAILY 05/13/17 05/13/17 History Furosemide [Lasix] 20 mg PO DAILY 05/13/17 05/13/17 History Insulin Degludec [Tresiba 40 unit SQ HS 05/13/17 05/13/17 History Flextouch U-100] amLODIPine BESYLATE [Norvasc] 5 mg PO DAILY 05/13/17 05/13/17 History methylPREDNISolone [Medrol Dose See Taper PO DIRECTED 05/13/17 05/13/17 History Pack] Allergies Allergy/AdvReac Type Severity Reaction Status Date / Time No Known Allergies Allergy Verified 05/25/16 13:00 Physical Exam Vitals: Vital Signs Temp Pulse Pulse Resp BP BP Pulse Ox 05/15/17 07:00 97.2 F L 105 H 16 128/61 97 05/14/17 23:00 98.1 F 74 18 137/63 96 05/14/17 21:32 80 161/69 05/14/17 15:30 76 16 138/65 95 05/14/17 15:15 76 16 138/73 97 05/14/17 15:06 16 05/14/17 15:00 97.1 F L 78 16 147/72 96 05/14/17 14:50 16 05/14/17 14:04 71 16 142/55 94 L 05/14/17 13:49 74 18 147/66 95 05/14/17 13:34 70 18 150/67 100 05/14/17 13:19 97.2 F L 75 16 127/61 99 05/14/17 11:59 98.1 F 71 18 173/66 97 05/14/17 11:17 16 Intake and Output 05/14/17 05/15/17 05/15/17 22:59 06:59 14:59 Output Total 400 Balance -400 Output: Urine 400 Other: Voiding Method Indwelling Catheter Indwelling Catheter Indwelling Catheter General appearance: The patient is alert, oriented, in no acute distress. HET: Head is normocephalic and atraumatic. Pupils are equal and reactive. Oropharynx is clear without lesions. Neck: Supple without lymphadenopathy. Trachea midline. Heart: S1 S2. Regular rate and rhythm. Lungs: No crackles or wheezes are heard. Abdomen: Soft, nontender, nondistended with bowel sounds. No peritoneal signs. No palpable organomegaly or masses. Extremities: Normal skin color and turgor. No cyanosis, rash, ulceration, clubbing, or edema. Radial and pedal pulses are 2/4 bilaterally. Ramesh with clear urine. Neurological: No focal deficits. Strength and sensation are grossly intact. Results CBC & Chem 7: 05/16/17 09:04 05/16/17 09:04 Labs: Abnormal Lab Results - Last 24 Hours (Table) 05/14/17 05/14/17 05/14/17 Range/Units 07:49 13:43 17:09 WBC (3.8-10.6) k/uL RBC (4.30-5.90) m/uL Hgb (13.0-17.5) gm/dL Hct (39.0-53.0) % MCHC (31.0-37.0) g/dL Neutrophils # (1.3-7.7) k/uL Lymphocytes # (1.0-4.8) k/uL ESR 80 H (0-15) mm/hr Sodium (137-145) mmol/L Potassium (3.5-5.1) mmol/L Carbon Dioxide (22-30) mmol/L BUN (9-20) mg/dL Creatinine (0.66-1.25) mg/dL Glucose (74-99) mg/dL POC Glucose (mg/dL) 108 H (75-99) mg/dL Hemoglobin A1c 7.2 H (4.0-6.0) % Calcium (8.4-10.2) mg/dL C-Reactive Protein (<10.0) mg/L 05/14/17 05/14/17 05/14/17 Range/Units 17:09 17:37 20:44 WBC (3.8-10.6) k/uL RBC (4.30-5.90) m/uL Hgb (13.0-17.5) gm/dL Hct (39.0-53.0) % MCHC (31.0-37.0) g/dL Neutrophils # (1.3-7.7) k/uL Lymphocytes # (1.0-4.8) k/uL ESR (0-15) mm/hr Sodium (137-145) mmol/L Potassium (3.5-5.1) mmol/L Carbon Dioxide (22-30) mmol/L BUN (9-20) mg/dL Creatinine (0.66-1.25) mg/dL Glucose (74-99) mg/dL POC Glucose (mg/dL) 122 H 149 H (75-99) mg/dL Hemoglobin A1c (4.0-6.0) % Calcium (8.4-10.2) mg/dL C-Reactive Protein 309.2 H (<10.0) mg/L 05/15/17 05/15/17 05/15/17 Range/Units 02:01 07:41 07:46 WBC 20.4 H (3.8-10.6) k/uL RBC 3.38 L (4.30-5.90) m/uL Hgb 9.7 L (13.0-17.5) gm/dL Hct 31.4 L (39.0-53.0) % MCHC 30.8 L (31.0-37.0) g/dL Neutrophils # 19.0 H (1.3-7.7) k/uL Lymphocytes # 0.6 L (1.0-4.8) k/uL ESR (0-15) mm/hr Sodium (137-145) mmol/L Potassium (3.5-5.1) mmol/L Carbon Dioxide (22-30) mmol/L BUN (9-20) mg/dL Creatinine (0.66-1.25) mg/dL Glucose (74-99) mg/dL POC Glucose (mg/dL) 159 H 178 H (75-99) mg/dL Hemoglobin A1c (4.0-6.0) % Calcium (8.4-10.2) mg/dL C-Reactive Protein (<10.0) mg/L 05/15/17 Range/Units 07:46 WBC (3.8-10.6) k/uL RBC (4.30-5.90) m/uL Hgb (13.0-17.5) gm/dL Hct (39.0-53.0) % MCHC (31.0-37.0) g/dL Neutrophils # (1.3-7.7) k/uL Lymphocytes # (1.0-4.8) k/uL ESR (0-15) mm/hr Sodium 134 L (137-145) mmol/L Potassium 5.4 H (3.5-5.1) mmol/L Carbon Dioxide 18 L (22-30) mmol/L BUN 53 H (9-20) mg/dL Creatinine 2.26 H (0.66-1.25) mg/dL Glucose 156 H (74-99) mg/dL POC Glucose (mg/dL) (75-99) mg/dL Hemoglobin A1c (4.0-6.0) % Calcium 8.3 L (8.4-10.2) mg/dL C-Reactive Protein (<10.0) mg/L Microbiology - Last 24 Hours (Table) 05/12/17 22:35 Urine Culture - Final Urine,Clean Catch Methicillin resist S. aureus Strep agalactiae - (group b) 05/12/17 22:10 Blood Culture Gram Stain - Final Blood Blood Culture - Final Methicillin resist S. aureus 05/14/17 09:37 Blood Culture - Preliminary Blood Assessment and Plan Assessment: Impression: 1. Rectal bleeding possible perirectal in nature possible colonic. 2. History of atrial fibrillation maintained on ELIQUIS; presently on hold. 3. UTI Staphylococcus aureus. 4. MRSA bacteremia. 6. Urethral stricture gross hematuria status post cystoscopy with urethral dilation of Ramesh catheter insertion. 7. Anemia component of acute blood loss. Plan: 1. Last colonoscopy 5-6 years ago; Repeat colonoscopy discussed however he declines and wants to proceed conservatively. 2. Continue to observe if hemoglobin continues to decrease and/or the bleeding returns inpatient colonoscopy advised. Daily CBC. Will follow. Thank you for this kind referral and the opportunity to participate in the care of your patient. This consultation was discussed with Dr. Aldrich. The impression and plan of care have been directed as dictated.
[2017-05-15 11:35] LABS: Glucose,Whole Blood 220 mg/dL (75-99)
[2017-05-15] MEDS: VANCOMYCIN 1,750 MG in SODIUM CHLORIDE 0.9% 250 ML IVPB SCH (12:31)
[2017-05-15 17:21] LABS: Glucose,Whole Blood 274 mg/dL (75-99)
[2017-05-15] MEDS: TAMSULOSIN 0.4 MG CAP.ER.24H PO SCH (17:34)
[2017-05-15] MEDS: SODIUM CHLORIDE 0.9% 1,000 ML IV SCH (17:36)
[2017-05-15 20:30] LABS: Glucose,Whole Blood 251 mg/dL (75-99)
[2017-05-15] MEDS: ATORVASTATIN 10 MG TAB PO SCH (20:39)
[2017-05-15] MEDS: INSULIN DETEMIR 100 UNIT/ML 10 ML VIAL SQ SCH (20:39)
--- NOTE | 2017-05-15 23:07 | P.PN ---
Subjective Progress Note Date: 05/15/17 Principal diagnosis: Sepsis 81-year-old male that is a history of multiple medical troubles that include urinary retention. The patient routinely straight caths 4 times per day. Relates over the last months has had increasing difficulties with self catheterization. Red rubber catheter required transition to a stiffer catheter to allow insertion.. The patient then started having further difficulties in need to be changed to a coud catheter for catheterization. The patient then started to have difficulties with hematuria. And then developed clots and was no longer able to pass any urine. And consequently presented to Hospital. He has been seen by urology and cystoscopy was performed with placement at that time of Ramesh catheter. Patient has evidence of sepsis in the infectious diseases consultation was requested. Patient relates started to feel slightly better. He felt very poorly at admission with fever and malaise. Fever is now improved. Objective - Vital Signs Vital signs: Vital Signs Temp 98.2 F 05/15/17 15:28 Pulse 118 H 05/15/17 20:37 Resp 16 05/15/17 16:00 BP 128/88 05/15/17 20:37 Pulse Ox 97 05/15/17 15:28 Intake & Output 05/15/17 05/15/17 05/16/17 06:59 18:59 06:59 Intake Total 1200 Output Total 400 450 225 Balance -400 750 -225 Intake: Oral 1200 Output: Urine 400 450 225 Other: Voiding Method Indwelling Catheter Indwelling Catheter - Exam 81-year-old male comfortable at this time HEENT: Anicteric conjunctiva are pink and moist nasal mucosa grossly intact without significant lesions, there is no thrush. Neck: The neck is supple without significant lymphadenopathy or thyromegaly. Lungs: Good bilateral air entry without significant crackles or wheezing. There is no significant bronchial sounds. There is no egophony or dullness. Heart: Regular rate and rhythm with an audible S1-S2, no S3 no S4. There is no significant murmur click or rub, PMI was nondisplaced. Abdomen: Obese Positive bowel sounds soft suprapubic tenderness, without palpable masses or organomegaly. There was no guarding or rebound. No flank tenderness Extremities: The upper extremities have excellent pulses they are symmetric, no significant petechiae or telangiectasia. No splinter hemorrhages were noted. The lower extremities are free from significant edema. The peripheral pulses were 2+ and symmetric. Neuro: Awake alert oriented to person place and time. There are no acute new gross focal sensory motor deficits. - Labs CBC & Chem 7: 05/15/17 07:46 05/15/17 07:46 Labs: Abnormal Lab Results - Last 24 Hours (Table) 05/14/17 05/15/17 05/15/17 Range/Units 07:49 02:01 07:41 WBC (3.8-10.6) k/uL RBC (4.30-5.90) m/uL Hgb (13.0-17.5) gm/dL Hct (39.0-53.0) % MCHC (31.0-37.0) g/dL Neutrophils # (1.3-7.7) k/uL Lymphocytes # (1.0-4.8) k/uL Sodium (137-145) mmol/L Potassium (3.5-5.1) mmol/L Carbon Dioxide (22-30) mmol/L BUN (9-20) mg/dL Creatinine (0.66-1.25) mg/dL Glucose (74-99) mg/dL POC Glucose (mg/dL) 159 H 178 H (75-99) mg/dL Hemoglobin A1c 7.2 H (4.0-6.0) % Calcium (8.4-10.2) mg/dL 05/15/17 05/15/17 05/15/17 Range/Units 07:46 07:46 11:32 WBC 20.4 H (3.8-10.6) k/uL RBC 3.38 L (4.30-5.90) m/uL Hgb 9.7 L (13.0-17.5) gm/dL Hct 31.4 L (39.0-53.0) % MCHC 30.8 L (31.0-37.0) g/dL Neutrophils # 19.0 H (1.3-7.7) k/uL Lymphocytes # 0.6 L (1.0-4.8) k/uL Sodium 134 L (137-145) mmol/L Potassium 5.4 H (3.5-5.1) mmol/L Carbon Dioxide 18 L (22-30) mmol/L BUN 53 H (9-20) mg/dL Creatinine 2.26 H (0.66-1.25) mg/dL Glucose 156 H (74-99) mg/dL POC Glucose (mg/dL) 220 H (75-99) mg/dL Hemoglobin A1c (4.0-6.0) % Calcium 8.3 L (8.4-10.2) mg/dL 05/15/17 05/15/17 Range/Units 17:18 20:29 WBC (3.8-10.6) k/uL RBC (4.30-5.90) m/uL Hgb (13.0-17.5) gm/dL Hct (39.0-53.0) % MCHC (31.0-37.0) g/dL Neutrophils # (1.3-7.7) k/uL Lymphocytes # (1.0-4.8) k/uL Sodium (137-145) mmol/L Potassium (3.5-5.1) mmol/L Carbon Dioxide (22-30) mmol/L BUN (9-20) mg/dL Creatinine (0.66-1.25) mg/dL Glucose (74-99) mg/dL POC Glucose (mg/dL) 274 H 251 H (75-99) mg/dL Hemoglobin A1c (4.0-6.0) % Calcium (8.4-10.2) mg/dL Microbiology - Last 24 Hours (Table) 05/14/17 17:09 Blood Culture Gram Stain - Preliminary Blood Blood Culture - Preliminary Presumptive MRSA 05/14/17 18:13 Blood Culture Gram Stain - Preliminary Blood Blood Culture - Preliminary Presumptive MRSA 05/14/17 09:37 Blood Culture Gram Stain - Preliminary Blood Blood Culture - Preliminary Presumptive MRSA 05/14/17 18:13 Blood Culture - Final Blood 05/14/17 17:09 Blood Culture - Final Blood 05/12/17 22:35 Urine Culture - Final Urine,Clean Catch Methicillin resist S. aureus Strep agalactiae - (group b) 05/12/17 22:10 Blood Culture Gram Stain - Final Blood Blood Culture - Final Methicillin resist S. aureus 05/14/17 09:37 Blood Culture - Preliminary Blood Laboratory Results WBC 20.4 k/uL (3.8-10.6) H 05/15/17 07:46 RBC 3.38 m/uL (4.30-5.90) L 05/15/17 07:46 Hgb 9.7 gm/dL (13.0-17.5) L 05/15/17 07:46 Hct 31.4 % (39.0-53.0) L 05/15/17 07:46 MCV 92.9 fL (80.0-100.0) 05/15/17 07:46 MCH 28.6 pg (25.0-35.0) 05/15/17 07:46 MCHC 30.8 g/dL (31.0-37.0) L 05/15/17 07:46 RDW 15.2 % (11.5-15.5) 05/15/17 07:46 Plt Count 222 k/uL (150-450) 05/15/17 07:46 Neutrophils % 93 % 05/15/17 07:46 Lymphocytes % 3 % 05/15/17 07:46 Monocytes % 3 % 05/15/17 07:46 Eosinophils % 0 % 05/15/17 07:46 Basophils % 0 % 05/15/17 07:46 Neutrophils # 19.0 k/uL (1.3-7.7) H 05/15/17 07:46 Lymphocytes # 0.6 k/uL (1.0-4.8) L 05/15/17 07:46 Monocytes # 0.6 k/uL (0-1.0) 05/15/17 07:46 Eosinophils # 0.0 k/uL (0-0.7) 05/15/17 07:46 Basophils # 0.0 k/uL (0-0.2) 05/15/17 07:46 Hypochromasia Slight 05/15/17 07:46 ESR 80 mm/hr (0-15) H 05/14/17 17:09 PT 10.8 sec (9.0-12.0) 05/12/17 22:10 INR 1.1 (<1.2) 05/12/17 22:10 APTT 20.2 sec (22.0-30.0) L 05/12/17 22:10 Sodium 134 mmol/L (137-145) L 05/15/17 07:46 Potassium 5.4 mmol/L (3.5-5.1) H 05/15/17 07:46 Chloride 107 mmol/L (98-107) 05/15/17 07:46 Carbon Dioxide 18 mmol/L (22-30) L 05/15/17 07:46 Anion Gap 9 mmol/L 05/15/17 07:46 BUN 53 mg/dL (9-20) H 05/15/17 07:46 Creatinine 2.26 mg/dL (0.66-1.25) H 05/15/17 07:46 Est GFR (MDRD) Af Amer 34 (>60 ml/min/1.73 sqM) 05/15/17 07:46 Est GFR (MDRD) Non-Af 28 (>60 ml/min/1.73 sqM) 05/15/17 07:46 Glucose 156 mg/dL (74-99) H 05/15/17 07:46 POC Glucose (mg/dL) 251 mg/dL (75-99) H 05/15/17 20:29 POC Glu [employer] Superintendent ID Carole Delgado 05/15/17 20:[address] Glu mg/dL 160 05/14/17 07:49 Hemoglobin A1c 7.2 % (4.0-6.0) H 05/14/17 07:49 Lactic Ac Sepsis Rflx Y 05/12/17 22:51 Plasma Lactic Acid Lorenzo 1.9 mmol/L (0.7-2.0) 05/13/17 01:00 EST Calcium 8.3 mg/dL (8.4-10.2) L 05/15/17 07:46 Total Bilirubin 0.5 mg/dL (0.2-1.3) 05/12/17 22:10 AST 22 U/L (17-59) 05/12/17 22:10 ALT 22 U/L (21-72) 05/12/17 22:10 Alkaline Phosphatase 89 U/L (38-126) 05/12/17 22:10 C-Reactive Protein 309.2 mg/L (<10.0) H 05/14/17 17:09 Total Protein 7.1 g/dL (6.3-8.2) 05/12/17 22:10 Albumin 3.7 g/dL (3.5-5.0) 05/12/17 22:10 Urine Color Dark Red 05/12/17 22:35 Urine Appearance Bloody (Clear) 05/12/17 22:35 Urine Blood Large (Negative) H 05/12/17 22:35 Urine RBC >182 /hpf (0-5) H 05/12/17 22:35 Urine WBC >182 /hpf (0-5) H 05/12/17 22:35 Stool Occult Blood Positive (Negative) 05/13/17 20:50 Acetone, Qual Negative (Negative) 05/12/17 22:10 Influenza Type A RNA Not Detected (Not Detectd) 05/12/17 22:25 Influenza Type B (PCR) Not Detected (Not Detectd) 05/12/17 22:25 Microbiology 05/14/17 17:09 Blood Blood Culture Gram Stain - Preliminary 05/14/17 17:09 Blood Blood Culture - Preliminary Presumptive MRSA 05/14/17 18:13 Blood Blood Culture Gram Stain - Preliminary 05/14/17 18:13 Blood Blood Culture - Preliminary Presumptive MRSA 05/14/17 09:37 Blood Blood Culture Gram Stain - Preliminary 05/14/17 09:37 Blood Blood Culture - Preliminary Presumptive MRSA 05/14/17 18:13 Blood Blood Culture - Final 05/14/17 17:09 Blood Blood Culture - Final 05/12/17 22:35 Urine,Clean Catch Urine Culture - Final Methicillin resist S. aureus Strep agalactiae - (group b) 05/12/17 22:10 Blood Blood Culture Gram Stain - Final 05/12/17 22:10 Blood Blood Culture - Final Methicillin resist S. aureus 05/14/17 09:37 Blood Blood Culture - Preliminary 05/12/17 22:10 Blood Blood Culture - Final Assessment and Plan (1) UTI (urinary tract infection) Narrative/Plan: 81-year-old male presents to hospital with difficulties related to his urinary system. He has urinary retention and straight cath multiple times per day. Recently was having difficulties and was transitioned to a coud catheter. Despite that was unable to pass urine was having blood clots. He subsequently was admitted and has had cystoscopy with Ramesh catheter placement by urology. Urine culture and blood cultures reveal evidence of staph aureus likely MRSA as well as a strep. Antimicrobial therapy with vancomycin has been initiated. Follow blood cultures are requested Patient is more comfortable today. Will need outpatient intravenous antimicrobial therapy. Patient does continue to have positive blood cultures for MRSA. He is doing somewhat better now. Did have this procedure and hopefully with this will now have resolution of his bacteremia. Repeat blood cultures requested for the morning. Discharge once we have clearance of his bacteremia PICC line can be placed Current Visit: Yes Status: Acute Code(s): N39.0 - URINARY TRACT INFECTION, SITE NOT SPECIFIED SNOMED Code(s): 70175451 (2) MRSA bacteremia Current Visit: Yes Status: Acute Code(s): R78.81 - BACTEREMIA SNOMED Code( s): 57010412028225429 (3) Urethral obstruction Current Visit: Yes Status: Acute Code(s): N36.8 - OTHER SPECIFIED DISORDERS OF URETHRA SNOMED Code(s): 94209864 (4) Leukocytosis Current Visit: Yes Status: Acute Code(s): D72.829 - ELEVATED WHITE BLOOD CELL COUNT, UNSPECIFIED SNOMED Code(s): 279601870
[2017-05-16] MEDS: DAPTOmycin IN 0.9% NACL 500 MG/10 ML SYRINGE IVP SCH ×2 (00:47→22:49)
[2017-05-16] MEDS: HYDROcodone/APAP 5-325MG 1 EACH TAB PO PRN ×5 (03:04→19:50)
[2017-05-16] MEDS: LACTULOSE 20 GM/30 ML CUP PO PRN (06:09)
[2017-05-16 07:28] LABS: Glucose,Whole Blood 237 mg/dL (75-99)
[2017-05-16] MEDS: METOPROLOL TARTRATE 50 MG TAB PO SCH ×2 (08:01→19:50)
[2017-05-16] MEDS: PANTOPRAZOLE 40 MG TABLET PO SCH (08:01)
[2017-05-16] MEDS: POLYETHYLENE GLYCOL 3350 17 GM POWD.PACK PO SCH (08:02)
[2017-05-16] MEDS: FINASTERIDE 5 MG TAB PO SCH (08:02)
[2017-05-16] MEDS: INSULIN LISPRO (humaLOG) 300 UNIT/3 ML VIAL SQ SCH ×2 (08:02→12:55)
[2017-05-16 09:50] LABS: Basophils % (A) 0 %; CH 29.8; CHCM 31.9; Eosinophils # (A) 0.1 k/uL (0-0.7); Eosinophils % (A) 1 %; HCT 31.2 % (39.0-53.0); HDW 2.93; HGB 9.6 gm/dL (13.0-17.5); Hypochromasia Slight; Luc % (Auto) 1; Lymphocytes # (A) 0.6 k/uL (1.0-4.8); Lymphocytes % (A) 5 %; MCH 28.9 pg (25.0-35.0); MCHC 30.7 g/dL (31.0-37.0); MCV 94.2 fL (80.0-100.0); Mean Platelet Volume 6.7; Monocytes # (A) 0.5 k/uL (0-1.0); Monocytes % (A) 3 %; Neutrophils # (A) 12.5 k/uL (1.3-7.7); Neutrophils % (A) 91 %; RBC 3.31 m/uL (4.30-5.90); RDW 14.3 % (11.5-15.5); WBC 13.8 k/uL (3.8-10.6); WBC (Perox) 14.39
[2017-05-16 10:06] LABS: Calcium 8.3 mg/dL (8.4-10.2); Potassium 4.3 mmol/L (3.5-5.1)
--- NOTE | 2017-05-16 10:48 | P.PN ---
Subjective Progress Note Date: 05/16/17 Principal diagnosis: Hematuria. Patient is feeling ok, no sob or pain. Currently urine in the robertson is clear. No fevers or chills. Objective - Vital Signs Vital signs: Vital Signs Temp 96.8 F L 05/16/17 07:00 Pulse 105 H 05/16/17 07:00 Resp 18 05/16/17 07:00 BP 136/67 05/16/17 07:00 Pulse Ox 98 05/16/17 07:00 Intake & Output 05/15/17 05/16/17 05/16/17 18:59 06:59 18:59 Intake Total 1200 Output Total 450 925 Balance 750 -925 Intake: Oral 1200 Output: Urine 450 925 Other: Voiding Method Indwelling Catheter Indwelling Catheter Indwelling Catheter - Exam Constitutional: No acute distress, conversant, pleasant Eyes:Anicteric sclerae, moist conjunctiva, no lid-lag, PERRLA, ENMT: Oropharynx clear, no erythema, exudates Neck: Supple, FROM, no masses, or JVD, No carotid bruits, No thyromegaly Lungs: Clear to auscultation, Clear to percussion, Normal respiratory effort, no accessory muscle use Cardiovascular: Heart regular in rate and rhythm, No murmurs, gallops, or rubs, No peripheral edema Abdominal: Soft, Nontender, no guarding, rebound or rigidity, Normoactive bowel sounds, No hepatomegaly, No splenomegaly, No palpable mass Skin: Normal temperature, tone, texture, turgor, no induration, No subcutaneous nodules, No rash, lesions, No ulcers Extremities: No digital cyanosis, No clubbing, Pedal pulses intact and symmetrical, Radial pulses intact and symmetrical, No calf tenderness Psychiatric: Alert and oriented to person, place and time, appropriate affect, intact judgement Neuro: Muscles Strength 5/5 in all 4 extremities, Sensation to light touch grossly present throughout, Cranial nerves II-XII grossly intact, no focal sensory deficits - Labs CBC & Chem 7: 05/16/17 09:04 05/16/17 09:04 Labs: Abnormal Lab Results - Last 24 Hours (Table) 05/15/17 05/15/17 05/15/17 Range/Units 11:32 17:18 20:29 WBC (3.8-10.6) k/uL RBC (4.30-5.90) m/uL Hgb (13.0-17.5) gm/dL Hct (39.0-53.0) % MCHC (31.0-37.0) g/dL Neutrophils # (1.3-7.7) k/uL Lymphocytes # (1.0-4.8) k/uL POC Glucose (mg/dL) 220 H 274 H 251 H (75-99) mg/dL 05/16/17 05/16/17 Range/Units 07:25 09:04 WBC 13.8 H (3.8-10.6) k/uL RBC 3.31 L (4.30-5.90) m/uL Hgb 9.6 L (13.0-17.5) gm/dL Hct 31.2 L (39.0-53.0) % MCHC 30.7 L (31.0-37.0) g/dL Neutrophils # 12.5 H (1.3-7.7) k/uL Lymphocytes # 0.6 L (1.0-4.8) k/uL POC Glucose (mg/dL) 237 H (75-99) mg/dL Microbiology - Last 24 Hours (Table) 05/14/17 17:09 Blood Culture Gram Stain - Preliminary Blood Blood Culture - Preliminary Presumptive MRSA 05/14/17 18:13 Blood Culture Gram Stain - Preliminary Blood Blood Culture - Preliminary Presumptive MRSA 05/14/17 09:37 Blood Culture Gram Stain - Preliminary Blood Blood Culture - Preliminary Presumptive MRSA 05/14/17 18:13 Blood Culture - Final Blood 05/14/17 17:09 Blood Culture - Final Blood 05/12/17 22:35 Urine Culture - Final Urine,Clean Catch Methicillin resist S. aureus Strep agalactiae - (group b) 05/12/17 22:10 Blood Culture Gram Stain - Final Blood Blood Culture - Final Methicillin resist S. aureus Assessment and Plan Plan: (1) Acute sepsis/Bacteremia Likely 2/2 UTI likely caused by self cath Repeat blood cultures grew MRSA again. Repeat blood cultures today Antibiotics changed to only daptomycin by ID Will order a PICC line, needs 4 weeks of IV antibiotic treatment IVF hydration with NS 0.9% (2) Hematuria in the setting of paroxysmal atrial fibrillation Likely Eliquis side effect in the setting of self cath S/p cystoscopy with urethral dilation and Robertson catheter insertion D/W urology the need/risk/benefits of resuming eliquis (3) Acute renal failure Likely obstructive as U/S showed chronic bladder wall thickening sec to outlet obstruction. No hydronephrosis. Continue NS infusion Resolved, Cr back to baseline. Avoid nephrotoxic medications Follow urine output--making good amount of urine Follow Cr daily (6) DM insulin dependant Blood sugar slightly elevated we'll increase the Levemir dose to 13 units daily Continue with insulin sliding scale and long acting insulin at night Check blood sugars every before meals and chest (7) Paroxysmal A-fib Currently in sinus rhythm Discussed with urology the need to resume Eliquis Continue with BB (8) Benign hypertension Resume home meds (9) DVT prophylaxis SCDs bilateral legs
--- NOTE | 2017-05-16 11:15 | P.PN ---
Subjective Progress Note Date: 05/16/17 Principal diagnosis: Rectal bleeding No further rectal bleeding. Nonbloody bowel movement this morning. Denies abdominal pain. No hematuria. Hemoglobin 9.6. Objective - Vital Signs Vital signs: Vital Signs Temp 96.8 F L 05/16/17 07:00 Pulse 105 H 05/16/17 07:00 Resp 18 05/16/17 07:00 BP 136/67 05/16/17 07:00 Pulse Ox 98 05/16/17 07:00 Intake & Output 05/15/17 05/16/17 05/16/17 18:59 06:59 18:59 Intake Total 1200 Output Total 450 925 Balance 750 -925 Intake: Oral 1200 Output: Urine 450 925 Other: Voiding Method Indwelling Catheter Indwelling Catheter Indwelling Catheter - Exam General appearance: The patient is alert, oriented, in no acute distress. HET: Head is normocephalic and atraumatic. Pupils are equal and reactive. Oropharynx is clear without lesions. Neck: Supple without lymphadenopathy. Trachea midline. Heart: S1 S2. Lungs: No crackles or wheezes are heard. Abdomen: Soft, nontender, nondistended with bowel sounds. No peritoneal signs. No palpable organomegaly or masses. Extremities: Normal skin color and turgor. No cyanosis, rash, ulceration, clubbing, or edema. Radial and pedal pulses are 2/4 bilaterally. Folly with alber urine. Neurological: No focal deficits. Strength and sensation are grossly intact. - Labs CBC & Chem 7: 05/16/17 09:04 05/16/17 09:04 Labs: Abnormal Lab Results - Last 24 Hours (Table) 05/15/17 05/15/17 05/15/17 Range/Units 11:32 17:18 20:29 WBC (3.8-10.6) k/uL RBC (4.30-5.90) m/uL Hgb (13.0-17.5) gm/dL Hct (39.0-53.0) % MCHC (31.0-37.0) g/dL Neutrophils # (1.3-7.7) k/uL Lymphocytes # (1.0-4.8) k/uL Sodium (137-145) mmol/L Chloride (98-107) mmol/L Carbon Dioxide (22-30) mmol/L BUN (9-20) mg/dL Creatinine (0.66-1.25) mg/dL Glucose (74-99) mg/dL POC Glucose (mg/dL) 220 H 274 H 251 H (75-99) mg/dL Calcium (8.4-10.2) mg/dL 05/16/17 05/16/17 05/16/17 Range/Units 07:25 09:04 09:04 WBC 13.8 H (3.8-10.6) k/uL RBC 3.31 L (4.30-5.90) m/uL Hgb 9.6 L (13.0-17.5) gm/dL Hct 31.2 L (39.0-53.0) % MCHC 30.7 L (31.0-37.0) g/dL Neutrophils # 12.5 H (1.3-7.7) k/uL Lymphocytes # 0.6 L (1.0-4.8) k/uL Sodium 134 L (137-145) mmol/L Chloride 108 H (98-107) mmol/L Carbon Dioxide 18 L (22-30) mmol/L BUN 54 H (9-20) mg/dL Creatinine 1.90 H (0.66-1.25) mg/dL Glucose 223 H (74-99) mg/dL POC Glucose (mg/dL) 237 H (75-99) mg/dL Calcium 8.3 L (8.4-10.2) mg/dL Microbiology - Last 24 Hours (Table) 05/14/17 17:09 Blood Culture Gram Stain - Preliminary Blood Blood Culture - Preliminary Presumptive MRSA 05/14/17 18:13 Blood Culture Gram Stain - Preliminary Blood Blood Culture - Preliminary Presumptive MRSA 05/14/17 09:37 Blood Culture Gram Stain - Preliminary Blood Blood Culture - Preliminary Presumptive MRSA 05/14/17 18:13 Blood Culture - Final Blood 05/14/17 17:09 Blood Culture - Final Blood 05/12/17 22:35 Urine Culture - Final Urine,Clean Catch Methicillin resist S. aureus Strep agalactiae - (group b) 05/12/17 22:10 Blood Culture Gram Stain - Final Blood Blood Culture - Final Methicillin resist S. aureus Assessment and Plan Assessment: Impression: 1. Rectal bleeding possible perirectal in nature possible colonic. 2. History of atrial fibrillation maintained on ELIQUIS; presently on hold. 3. UTI Staphylococcus aureus. 4. MRSA bacteremia. 6. Urethral stricture gross hematuria status post cystoscopy with urethral dilation of Ramesh catheter insertion. 7. Anemia component of acute blood loss. Remains stable at 9.6. Plan: 1. Last colonoscopy 5-6 years ago; Repeat colonoscopy discussed however he declines and wants to proceed conservatively. 2. Continue to observe if hemoglobin continues to decrease and/or the bleeding returns inpatient colonoscopy advised. Daily CBC. Will follow as needed. Assessment and plan a care discussed with Dr. Aldrich.
[2017-05-16 12:22] LABS: Glucose,Whole Blood 220 mg/dL (75-99)
--- NOTE | 2017-05-16 12:24 | ECHOF ---
Referral Reason:vegetation, +Blood cultures MEASUREMENTS -------- HEIGHT: 157.5 cm WEIGHT: 103.0 kg BP: 28/62 IVSd: 1.6 cm (0.6 - 1.1) LVIDd: 4.5 cm (3.9 - 5.3) LVPWd: 1.2 cm (0.6 - 1.1) IVSs: 1.9 cm LVIDs: 3.8 cm LVPWs: 1.1 cm LA Diam: 4.5 cm (2.7 - 3.8) Ao Diam: 3.6 cm (2.0 - 3.7) AV Cusp: 1.5 cm (1.5 - 2.6) LA Diam: 4.8 cm (2.7 - 3.8) MV EXCURSION: 20.607 mm (> 18.000) MV EF SLOPE: 136 mm/s (70 - 150) EPSS: 0.0 cm MV E Steven: 1.01 m/s MV DecT: 244 ms MV A Steven: 0.30 m/s MV E/A Ratio: 3.33 RAP: 5.00 mmHg RVSP: 40.39 mmHg FINDINGS -------- Undetermined rhythm. This was a technically adequate study. The left ventricular size is normal. There is moderate concentric left ventricular hypertrophy. O verall left ventricular systolic function is normal with, an EF between 55 - 60 %. The right ventricle is normal in size. The left atrium is moderately dilated. The right atrial size is normal. There is mild aortic valve sclerosis. There is no evidence of aortic regurgitation. Mild mitral annular calcification present. Mild mitral regurgitation is present. Mild tricuspid regurgitation present. There is mild pulmonary hypertension. The right ventricular systolic pressure, as measured by Doppler, is 40.39mmHg. Trace/mild (physiologic) pulmonic regurgitation. The aortic root size is normal. There is no pericardial effusion. CONCLUSIONS -------- 1. There is moderate concentric left ventricular hypertrophy. 2. Overall left ventricular systolic function is normal with, an EF between 55 - 60 %. 3. The left atrium is moderately dilated. 4. There is mild aortic valve sclerosis. 5. Mild mitral annular calcification present. 6. Mild mitral regurgitation is present. 7. Mild tricuspid regurgitation present. 8. There is mild pulmonary hypertension. 9. Trace/mild (physiologic) pulmonic regurgitation. 10. The aortic root size is normal. 11. There is no pericardial effusion. ETYMOLOGY TEACHER: Ofelia Rod RDCS
[2017-05-16] MEDS: SODIUM CHLORIDE 0.9% 1,000 ML IV SCH (15:50)
[2017-05-16 17:00] LABS: Glucose,Whole Blood 216 mg/dL (75-99)
[2017-05-16] MEDS: INSULIN ASPART 100 UNIT/ML 1 ML 10 ML VIAL SQ SCH ×2 (17:46→21:14)
[2017-05-16] MEDS: TAMSULOSIN 0.4 MG CAP.ER.24H PO SCH (18:16)
[2017-05-16] MEDS: ATORVASTATIN 10 MG TAB PO SCH (19:50)
[2017-05-16 20:55] LABS: Glucose,Whole Blood 223 mg/dL (75-99)
[2017-05-16] MEDS ORDERED: INSULIN DETEMIR 100 UNIT/ML 10 ML VIAL SQ SCH (21:00)
--- NOTE | 2017-05-16 22:31 | P.PN ---
Subjective Progress Note Date: 05/16/17 Principal diagnosis: Sepsis 81-year-old male that is a history of multiple medical troubles that include urinary retention. The patient routinely straight caths 4 times per day. Relates over the last months has had increasing difficulties with self catheterization. Red rubber catheter required transition to a stiffer catheter to allow insertion.. The patient then started having further difficulties in need to be changed to a coud catheter for catheterization. The patient then started to have difficulties with hematuria. And then developed clots and was no longer able to pass any urine. And consequently presented to Hospital. He has been seen by urology and cystoscopy was performed with placement at that time of Ramesh catheter. Patient has evidence of sepsis with noted ongoing positive blood cultures. Patient relates started to feel slightly better. He felt very poorly at admission with fever and malaise. Fever is now improved. Objective - Vital Signs Vital signs: Vital Signs Temp 97.2 F L 05/16/17 16:43 Pulse 98 05/16/17 16:43 Resp 16 05/16/17 16:43 BP 127/67 05/16/17 16:43 Pulse Ox 98 05/16/17 16:43 Intake & Output 05/16/17 05/16/17 05/17/17 06:59 18:59 06:59 Intake Total 400 800 Output Total 925 1000 100 Balance -925 -600 700 Weight 103 kg Intake: IV 400 Sodium Chloride 0.9% 1, 400 000 ml @ 50 mls/hr IV . Q20H [facility] Rx#:[id number] Oral 800 Output: Urine 925 1000 100 Other: Voiding Method Indwelling Catheter Indwelling Catheter Indwelling Catheter - Exam 81-year-old male comfortable at this time HEENT: Anicteric conjunctiva are pink and moist nasal mucosa grossly intact without significant lesions, there is no thrush. Neck: The neck is supple without significant lymphadenopathy or thyromegaly. Lungs: Good bilateral air entry without significant crackles or wheezing. There is no significant bronchial sounds. There is no egophony or dullness. Heart: Regular rate and rhythm with an audible S1-S2, no S3 no S4. There is no significant murmur click or rub, PMI was nondisplaced. Abdomen: Obese Positive bowel sounds soft suprapubic tenderness, without palpable masses or organomegaly. There was no guarding or rebound. No flank tenderness Extremities: The upper extremities have excellent pulses they are symmetric, no significant petechiae or telangiectasia. No splinter hemorrhages were noted. The lower extremities are free from significant edema. The peripheral pulses were 2+ and symmetric. Neuro: Awake alert oriented to person place and time. There are no acute new gross focal sensory motor deficits. - Labs CBC & Chem 7: 05/16/17 09:04 05/16/17 09:04 Labs: Abnormal Lab Results - Last 24 Hours (Table) 05/16/17 05/16/17 05/16/17 Range/Units 07:25 09:04 09:04 WBC 13.8 H (3.8-10.6) k/uL RBC 3.31 L (4.30-5.90) m/uL Hgb 9.6 L (13.0-17.5) gm/dL Hct 31.2 L (39.0-53.0) % MCHC 30.7 L (31.0-37.0) g/dL Neutrophils # 12.5 H (1.3-7.7) k/uL Lymphocytes # 0.6 L (1.0-4.8) k/uL Sodium 134 L (137-145) mmol/L Chloride 108 H (98-107) mmol/L Carbon Dioxide 18 L (22-30) mmol/L BUN 54 H (9-20) mg/dL Creatinine 1.90 H (0.66-1.25) mg/dL Glucose 223 H (74-99) mg/dL POC Glucose (mg/dL) 237 H (75-99) mg/dL Calcium 8.3 L (8.4-10.2) mg/dL 05/16/17 05/16/17 05/16/17 Range/Units 12:20 16:57 20:52 WBC (3.8-10.6) k/uL RBC (4.30-5.90) m/uL Hgb (13.0-17.5) gm/dL Hct (39.0-53.0) % MCHC (31.0-37.0) g/dL Neutrophils # (1.3-7.7) k/uL Lymphocytes # (1.0-4.8) k/uL Sodium (137-145) mmol/L Chloride (98-107) mmol/L Carbon Dioxide (22-30) mmol/L BUN (9-20) mg/dL Creatinine (0.66-1.25) mg/dL Glucose (74-99) mg/dL POC Glucose (mg/dL) 220 H 216 H 223 H (75-99) mg/dL Calcium (8.4-10.2) mg/dL Microbiology - Last 24 Hours (Table) 05/14/17 09:37 Blood Culture Gram Stain - Final Blood Blood Culture - Final Methicillin resist S. aureus 05/14/17 17:09 Blood Culture Gram Stain - Final Blood Blood Culture - Final Methicillin resist S. aureus 05/14/17 18:13 Blood Culture Gram Stain - Final Blood Blood Culture - Final Methicillin resist S. aureus 05/14/17 09:37 Blood Culture - Final Blood Laboratory Results WBC 13.8 k/uL (3.8-10.6) H 05/16/17 09:04 RBC 3.31 m/uL (4.30-5.90) L 05/16/17 09:04 Hgb 9.6 gm/dL (13.0-17.5) L 05/16/17 09:04 Hct 31.2 % (39.0-53.0) L 05/16/17 09:04 MCV 94.2 fL (80.0-100.0) 05/16/17 09:04 MCH 28.9 pg (25.0-35.0) 05/16/17 09:04 MCHC 30.7 g/dL (31.0-37.0) L 05/16/17 09:04 RDW 14.3 % (11.5-15.5) 05/16/17 09:04 Plt Count 259 k/uL (150-450) 05/16/17 09:04 Neutrophils % 91 % 05/16/17 09:04 Lymphocytes % 5 % 05/16/17 09:04 Monocytes % 3 % 05/16/17 09:04 Eosinophils % 1 % 05/16/17 09:04 Basophils % 0 % 05/16/17 09:04 Neutrophils # 12.5 k/uL (1.3-7.7) H 05/16/17 09:04 Lymphocytes # 0.6 k/uL (1.0-4.8) L 05/16/17 09:04 Monocytes # 0.5 k/uL (0-1.0) 05/16/17 09:04 Eosinophils # 0.1 k/uL (0-0.7) 05/16/17 09:04 Basophils # 0.0 k/uL (0-0.2) 05/16/17 09:04 Hypochromasia Slight 05/16/17 09:04 ESR 80 mm/hr (0-15) H 05/14/17 17:09 PT 10.8 sec (9.0-12.0) 05/12/17 22:10 INR 1.1 (<1.2) 05/12/17 22:10 APTT 20.2 sec (22.0-30.0) L 05/12/17 22:10 Sodium 134 mmol/L (137-145) L 05/16/17 09:04 Potassium 4.3 mmol/L (3.5-5.1) 05/16/17 09:04 Chloride 108 mmol/L (98-107) H 05/16/17 09:04 Carbon Dioxide 18 mmol/L (22-30) L 05/16/17 09:04 Anion Gap 8 mmol/L 05/16/17 09:04 BUN 54 mg/dL (9-20) H 05/16/17 09:04 Creatinine 1.90 mg/dL (0.66-1.25) H 05/16/17 09:04 Est GFR (MDRD) Af Amer 41 (>60 ml/min/1.73 sqM) 05/16/17 09:04 Est GFR (MDRD) Non-Af 34 (>60 ml/min/1.73 sqM) 05/16/17 09:04 Glucose 223 mg/dL (74-99) H 05/16/17 09:04 POC Glucose (mg/dL) 223 mg/dL (75-99) H 05/16/17 20:52 POC Glu Psychiatric Social Worker Supervisor ID Carole Delgado 05/16/17 20:[address] Glu mg/dL 160 05/14/17 07:49 Hemoglobin A1c 7.2 % (4.0-6.0) H 05/14/17 07:49 Lactic Ac Sepsis Rflx Y 05/12/17 22:51 Plasma Lactic Acid Lorenzo 1.9 mmol/L (0.7-2.0) 05/13/17 01:00 EST Calcium 8.3 mg/dL (8.4-10.2) L 05/16/17 09:04 Total Bilirubin 0.5 mg/dL (0.2-1.3) 05/12/17 22:10 AST 22 U/L (17-59) 05/12/17 22:10 ALT 22 U/L (21-72) 05/12/17 22:10 Alkaline Phosphatase 89 U/L (38-126) 05/12/17 22:10 C-Reactive Protein 309.2 mg/L (<10.0) H 05/14/17 17:09 Total Protein 7.1 g/dL (6.3-8.2) 05/12/17 22:10 Albumin 3.7 g/dL (3.5-5.0) 05/12/17 22:10 Urine Color Dark Red 05/12/17 22:35 Urine Appearance Bloody (Clear) 05/12/17 22:35 Urine Blood Large (Negative) H 05/12/17 22:35 Urine RBC >182 /hpf (0-5) H 05/12/17 22:35 Urine WBC >182 /hpf (0-5) H 05/12/17 22:35 Stool Occult Blood Positive (Negative) 05/13/17 20:50 Random Vancomycin 19.1 ug/mL 05/16/17 09:04 Acetone, Qual Negative (Negative) 05/12/17 22:10 Influenza Type A RNA Not Detected (Not Detectd) 05/12/17 22:25 Influenza Type B (PCR) Not Detected (Not Detectd) 05/12/17 22:25 Microbiology 05/14/17 09:37 Blood Blood Culture Gram Stain - Final 05/14/17 09:37 Blood Blood Culture - Final Methicillin resist S. aureus 05/14/17 17:09 Blood Blood Culture Gram Stain - Final 05/14/17 17:09 Blood Blood Culture - Final Methicillin resist S. aureus 05/14/17 18:13 Blood Blood Culture Gram Stain - Final 05/14/17 18:13 Blood Blood Culture - Final Methicillin resist S. aureus 05/14/17 09:37 Blood Blood Culture - Final 05/14/17 18:13 Blood Blood Culture - Final 05/14/17 17:09 Blood Blood Culture - Final 05/12/17 22:35 Urine,Clean Catch Urine Culture - Final Methicillin resist S. aureus Strep agalactiae - (group b) 05/12/17 22:10 Blood Blood Culture Gram Stain - Final 05/12/17 22:10 Blood Blood Culture - Final Methicillin resist S. aureus 05/12/17 22:10 Blood Blood Culture - Final - Imaging and Cardiology echo without evidence of vegetations Assessment and Plan (1) UTI (urinary tract infection) Narrative/Plan: 81-year-old male presents to hospital with difficulties related to his urinary system. He has urinary retention and straight cath multiple times per day. Recently was having difficulties and was transitioned to a coud catheter. Despite that was unable to pass urine was having blood clots. He subsequently was admitted and has had cystoscopy with Ramesh catheter placement by urology. Urine culture and blood cultures reveal evidence of staph aureus likely MRSA as well as a strep. Antimicrobial therapy with vancomycin has been initiated. Follow blood cultures are requested Patient is more comfortable today. Will need outpatient intravenous antimicrobial therapy. Patient does continue to have positive blood cultures for MRSA. He is doing somewhat better now. Did have this procedure and hopefully with this will now have resolution of his bacteremia. Repeat blood cultures requested for the morning.All all the prior blood cultures are positive to date. If blood remains positive will need CT of ABD and pelvis to ensure no abscess Current Visit: Yes Status: Acute Code(s): N39.0 - URINARY TRACT INFECTION, SITE NOT SPECIFIED SNOMED Code(s): 27311559 (2) MRSA bacteremia Current Visit: Yes Status: Acute Code(s): R78.81 - BACTEREMIA SNOMED Code( s): 66820014655865460 (3) Urethral obstruction Current Visit: Yes Status: Acute Code(s): N36.8 - OTHER SPECIFIED DISORDERS OF URETHRA SNOMED Code(s): 36976094 (4) Leukocytosis Current Visit: Yes Status: Acute Code(s): D72.829 - ELEVATED WHITE BLOOD CELL COUNT, UNSPECIFIED SNOMED Code(s): 024844273
[2017-05-16] MEDS: HYDROmorphone 1 MG/ML 1 ML SYRINGE IVP PRN (22:49)
[2017-05-17 07:09] LABS: Glucose,Whole Blood 182 mg/dL (75-99)
[2017-05-17] MEDS: HYDROcodone/APAP 5-325MG 1 EACH TAB PO PRN ×4 (07:33→20:36)
[2017-05-17] MEDS: PANTOPRAZOLE 40 MG TABLET PO SCH (07:34)
[2017-05-17] MEDS: FINASTERIDE 5 MG TAB PO SCH (07:34)
[2017-05-17] MEDS: METOPROLOL TARTRATE 50 MG TAB PO SCH ×2 (07:34→21:39)
[2017-05-17] MEDS: INSULIN ASPART 100 UNIT/ML 1 ML 10 ML VIAL SQ SCH ×4 (07:34→21:39)
[2017-05-17] MEDS: POLYETHYLENE GLYCOL 3350 17 GM POWD.PACK PO SCH (07:34)
[2017-05-17] MEDS: SODIUM CHLORIDE 0.9% 1,000 ML IV SCH (10:11)
[2017-05-17 10:12] LABS: Basophils % (A) 0 %; CH 29.4; CHCM 31.4; Eosinophils # (A) 0.5 k/uL (0-0.7); Eosinophils % (A) 5 %; HCT 28.6 % (39.0-53.0); HDW 3.06; HGB 8.8 gm/dL (13.0-17.5); Hypochromasia Slight; Luc # (Auto) 0.11; Luc % (Auto) 1; Lymphocytes # (A) 0.9 k/uL (1.0-4.8); Lymphocytes % (A) 10 %; MCH 28.9 pg (25.0-35.0); MCHC 30.7 g/dL (31.0-37.0); MCV 94.2 fL (80.0-100.0); Mean Platelet Volume 6.6; Monocytes # (A) 0.7 k/uL (0-1.0); Monocytes % (A) 8 %; Neutrophils # (A) 6.6 k/uL (1.3-7.7); Neutrophils % (A) 76 %; RBC 3.04 m/uL (4.30-5.90); RDW 14.3 % (11.5-15.5); WBC 8.8 k/uL (3.8-10.6)
[2017-05-17 10:24] LABS: Calcium 7.9 mg/dL (8.4-10.2); Potassium 4.2 mmol/L (3.5-5.1)
--- NOTE | 2017-05-17 10:49 | P.PN ---
Subjective Principal diagnosis: Hematuria. Patient had severe right groin pain when he was trying to ambulate to the bathroom this morning. He could not make it all the way to the bathroom and had to stop in the middle. Physical therapy has been working with him daily. He has not had the PICC line inserted yet because of persistently positive blood cultures. Otherwise no nausea, vomiting, chest pain or shortness of breath. His last bowel movement was yesterday. Objective - Vital Signs Vital signs: Vital Signs Temp 97.0 F L 05/17/17 07:00 Pulse 76 05/17/17 07:00 Resp 18 05/17/17 07:00 BP 158/77 05/17/17 07:00 Pulse Ox 98 05/17/17 07:00 Intake & Output 05/16/17 05/17/17 05/17/17 18:59 06:59 18:59 Intake Total 400 800 Output Total 1000 1150 Balance -600 -350 Weight 103 kg Intake: IV 400 Sodium Chloride 0.9% 1, 400 000 ml @ 50 mls/hr IV . Q20H [facility] Rx#:[id number] Oral 800 Output: Urine 1000 1150 Other: Voiding Method Indwelling Catheter Indwelling Catheter Indwelling Catheter # Voids 1 - Exam Constitutional: No acute distress, conversant, pleasant Eyes:Anicteric sclerae, moist conjunctiva, no lid-lag, PERRLA, ENMT: Oropharynx clear, no erythema, exudates Neck: Supple, FROM, no masses, or JVD, No carotid bruits, No thyromegaly Lungs: Clear to auscultation, Clear to percussion, Normal respiratory effort, no accessory muscle use Cardiovascular: Heart regular in rate and rhythm, No murmurs, gallops, or rubs, No peripheral edema Abdominal: Soft, Nontender, no guarding, rebound or rigidity, Normoactive bowel sounds, No hepatomegaly, No splenomegaly, No palpable mass Skin: Normal temperature, tone, texture, turgor, no induration, No subcutaneous nodules, No rash, lesions, No ulcers Extremities: No digital cyanosis, No clubbing, Pedal pulses intact and symmetrical, Radial pulses intact and symmetrical, No calf tenderness Psychiatric: Alert and oriented to person, place and time, appropriate affect, intact judgement Neuro: Muscles Strength 5/5 in all 4 extremities, Sensation to light touch grossly present throughout, Cranial nerves II-XII grossly intact, no focal sensory deficits - Labs CBC & Chem 7: 05/17/17 09:55 05/17/17 09:55 Labs: Abnormal Lab Results - Last 24 Hours (Table) 05/16/17 05/16/17 05/16/17 Range/Units 12:20 16:57 20:52 RBC (4.30-5.90) m/uL Hgb (13.0-17.5) gm/dL Hct (39.0-53.0) % MCHC (31.0-37.0) g/dL Lymphocytes # (1.0-4.8) k/uL Sodium (137-145) mmol/L Chloride (98-107) mmol/L Carbon Dioxide (22-30) mmol/L BUN (9-20) mg/dL Creatinine (0.66-1.25) mg/dL Glucose (74-99) mg/dL POC Glucose (mg/dL) 220 H 216 H 223 H (75-99) mg/dL Calcium (8.4-10.2) mg/dL 05/17/17 05/17/17 05/17/17 Range/Units 06:50 09:55 09:55 RBC 3.04 L (4.30-5.90) m/uL Hgb 8.8 L (13.0-17.5) gm/dL Hct 28.6 L (39.0-53.0) % MCHC 30.7 L (31.0-37.0) g/dL Lymphocytes # 0.9 L (1.0-4.8) k/uL Sodium 135 L (137-145) mmol/L Chloride 111 H (98-107) mmol/L Carbon Dioxide 18 L (22-30) mmol/L BUN 43 H (9-20) mg/dL Creatinine 1.75 H (0.66-1.25) mg/dL Glucose 179 H (74-99) mg/dL POC Glucose (mg/dL) 182 H (75-99) mg/dL Calcium 7.9 L (8.4-10.2) mg/dL Microbiology - Last 24 Hours (Table) 05/16/17 09:41 Blood Culture - Final Blood 05/16/17 09:41 Blood Culture Gram Stain - Preliminary Blood 11/06/17 18:13 Blood Culture Gram Stain - Final Blood Blood Culture - Final Methicillin resist S. aureus 05/14/17 17:09 Blood Culture Gram Stain - Final Blood Blood Culture - Final Methicillin resist S. aureus 05/14/17 09:37 Blood Culture Gram Stain - Final Blood Blood Culture - Final Methicillin resist S. aureus 05/14/17 09:37 Blood Culture - Final Blood Assessment and Plan Plan: (1) Acute sepsis/Bacteremia Blood cultures from 05/16 continue to be positive for MRSA Discussed with infectious disease Dr. Mooney Obtain computed tomography scan of the abdomen and pelvis to r/o abscess Blood cultures to be repeated tomorrow Continue daptomycin PICC line, needs 4 weeks of IV antibiotic treatment IVF hydration with NS 0.9% (2) Hematuria in the setting of paroxysmal atrial fibrillation Likely Eliquis side effect in the setting of self cath S/p cystoscopy with urethral dilation and Ramesh catheter insertion D/W urology the need/risk/benefits of resuming eliquis Resume eliquis (3) Acute renal failure Likely obstructive as U/S showed chronic bladder wall thickening sec to outlet obstruction. No hydronephrosis. Continue NS infusion Avoid nephrotoxic medications Follow urine output--making good amount of urine Follow Cr daily (6) DM insulin dependant Blood sugar better today but still not controlled Increase the Levemir dose to 15 units daily Continue with insulin sliding scale and long acting insulin at night Check blood sugars every before meals and at bedtime (7) Paroxysmal A-fib Currently in sinus rhythm Discussed with urology the need to resume Eliquis Continue with Pepper (8) Benign hypertension Resume home meds (9) DVT prophylaxis SCDs bilateral legs
[2017-05-17] MEDS: IOHEXOL 350 MG/ML 25 ML BOTTLE (ORAL USE) PO PRN ×2 (11:00→12:11)
[2017-05-17] MEDS ORDERED: VANCOMYCIN 1,750 MG in SODIUM CHLORIDE 0.9% 250 ML IVPB SCH (12:00)
[2017-05-17 12:17] LABS: Glucose,Whole Blood 177 mg/dL (75-99)
--- NOTE | 2017-05-17 12:18 | P.PN ---
Progress Note - Text Progress Note Date: 05/16/17 Mr. Leslie is afebrile, and his leukocytosis is improving. His creatinine level is decreased. He is being treated for MRSA sepsis. The Ramesh catheter continues to drain clear yellow urine. Eliquis will be resumed. He is to be discharged with the Ramesh catheter, which will be removed in the office in approximately 2 weeks. Please notify me if I can be of any further assistance during this hospitalization.
[2017-05-17] MEDS: APIXABAN 2.5 MG TABLET PO SCH ×2 (13:35→23:02)
--- NOTE | 2017-05-17 15:05 | CT ---
EXAMINATION TYPE: CT abdomen pelvis wo con DATE OF EXAM: 05/17/2017 COMPARISON: NONE HISTORY: 81-year-old male rule out abscess, persistent positive blood cultures CT DLP: 1383.8 mGycm. Automated exposure control for dose reduction was used. TECHNIQUE: Contiguous axial scanning of the abdomen and pelvis without IV contrast. Coronal and sagit arsalan reconstructions performed. FINDINGS: The heart is normal size with trace anterior basilar pericardial fluid. Coronary vessel calcification s are present in remarkable for coronary artery disease. Small left and trace right pleural effusions. Indeterminate 1.4 cm hypodense lesion right hepatic lobe, axial image 24. Gallbladder, adrenal glands, right kidney, spleen, and mildly atrophic pancreas show no gross abnorma lity. 1.1 cm exophytic hypodense lesion anterior midpole left kidney too small fractured CT characterizatio n, probable cyst. Mild to moderate arthroscopic calcifications throughout the abdominal aorta and iliac arteries. No mesenteric or retroperitoneal lymphadenopathy. Mild to moderate stool burden There is an eccentric area of thickening measuring 4.2 x 2.3 cm along the right anterolateral distal rectum, axial image 90. There is adjacent asymmetry of the right side of the prostate gland with asso ciated soft tissue fullness and leftward deviation of the patient's Ramesh catheter. Moderate to sever e circumferential wall thickening of the bladder. 2.0 cm soft tissue nodularity along the left lateral wall of the rectum and presacral edema and mild tracking pelvic fluid. Bones: Degenerative changes mid to lower lumbar spine. Schmorl's nodes prominent at L2 and L3. Bilate ral flank edema. IMPRESSION: 1. Eccentric thickening along the right anterolateral aspect of the distal rectum and right side of the prostate gland. This causes some leftward deviation of the patient's Ramesh catheter. The etiology is unclear. An intramural rectal abscess with extension to the prostate gland or rectal versus prost atic neoplasm are all in the differential. Note decreased sensitivity due to lack of IV contrast. 2. Mild inflammatory edema in the pelvis and possible 2 cm perirectal lymph node. 3. Indeterminate 1.4 cm hypodense lesion right hepatic lobe. Recommend attempt at further characteri zation with liver ultrasound. Metastatic disease should be excluded 4. Moderate to severe circumferential bladder wall thickening. Chronic bladder wall hypertrophy and cystitis are in the differential. 5. Small left and trace right effusions and mild anasarca-type change. Correlate for fluid overload state. 6. Scattered colonic diverticulosis..
[2017-05-17 17:10] LABS: Glucose,Whole Blood 168 mg/dL (75-99)
[2017-05-17] MEDS: TAMSULOSIN 0.4 MG CAP.ER.24H PO SCH (17:46)
[2017-05-17 20:38] LABS: Glucose,Whole Blood 155 mg/dL (75-99)
[2017-05-17] MEDS: ATORVASTATIN 10 MG TAB PO SCH (21:39)
[2017-05-17] MEDS: INSULIN DETEMIR 100 UNIT/ML 10 ML VIAL SQ SCH (21:40)
[2017-05-17] MEDS: HYDROmorphone 1 MG/ML 1 ML SYRINGE IVP PRN (21:46)
[2017-05-17] MEDS: DAPTOmycin IN 0.9% NACL 500 MG/10 ML SYRINGE IVP SCH (23:02)
--- NOTE | 2017-05-17 23:21 | P.PN ---
Subjective Progress Note Date: 05/17/17 Principal diagnosis: Sepsis 81-year-old male that is a history of multiple medical troubles that include urinary retention. The patient routinely straight caths 4 times per day. Relates over the last months has had increasing difficulties with self catheterization. Red rubber catheter required transition to a stiffer catheter to allow insertion.. The patient then started having further difficulties in need to be changed to a coud catheter for catheterization. The patient then started to have difficulties with hematuria. And then developed clots and was no longer able to pass any urine. And consequently presented to Hospital. He has been seen by urology and cystoscopy was performed with placement at that time of Ramesh catheter. Patient has evidence of sepsis with noted ongoing positive blood cultures. Patient relates started to feel slightly better. He felt very poorly at admission with fever and malaise. Fever is now improved. However continues to have evidence of positive blood cultures. Objective - Vital Signs Vital signs: Vital Signs Temp 97.4 F L 05/17/17 19:33 Pulse 100 05/17/17 19:33 Resp 20 05/17/17 19:33 BP 126/84 05/17/17 19:33 Pulse Ox 97 05/17/17 19:33 Intake & Output 05/17/17 05/17/17 05/18/17 06:59 18:59 06:59 Intake Total 800 250 Output Total 1150 1400 Balance -350 -1150 Weight 103 kg 103 kg Intake: Oral 800 250 Output: Urine 1150 1400 Other: Voiding Method Indwelling Catheter Indwelling Catheter Indwelling Catheter # Voids 1 - Exam 81-year-old male comfortable at this time HEENT: Anicteric conjunctiva are pink and moist nasal mucosa grossly intact without significant lesions, there is no thrush. Neck: The neck is supple without significant lymphadenopathy or thyromegaly. Lungs: Good bilateral air entry without significant crackles or wheezing. There is no significant bronchial sounds. There is no egophony or dullness. Heart: Regular rate and rhythm with an audible S1-S2, no S3 no S4. There is no significant murmur click or rub, PMI was nondisplaced. Abdomen: Obese Positive bowel sounds soft suprapubic tenderness, without palpable masses or organomegaly. There was no guarding or rebound. No flank tenderness Extremities: The upper extremities have excellent pulses they are symmetric, no significant petechiae or telangiectasia. No splinter hemorrhages were noted. The lower extremities are free from significant edema. The peripheral pulses were 2+ and symmetric. Neuro: Awake alert oriented to person place and time. There are no acute new gross focal sensory motor deficits. - Labs CBC & Chem 7: 05/17/17 09:55 05/17/17 09:55 Labs: Abnormal Lab Results - Last 24 Hours (Table) 05/17/17 05/17/17 05/17/17 Range/Units 06:50 09:55 09:55 RBC 3.04 L (4.30-5.90) m/uL Hgb 8.8 L (13.0-17.5) gm/dL Hct 28.6 L (39.0-53.0) % MCHC 30.7 L (31.0-37.0) g/dL Lymphocytes # 0.9 L (1.0-4.8) k/uL Sodium 135 L (137-145) mmol/L Chloride 111 H (98-107) mmol/L Carbon Dioxide 18 L (22-30) mmol/L BUN 43 H (9-20) mg/dL Creatinine 1.75 H (0.66-1.25) mg/dL Glucose 179 H (74-99) mg/dL POC Glucose (mg/dL) 182 H (75-99) mg/dL Calcium 7.9 L (8.4-10.2) mg/dL 05/17/17 05/17/17 05/17/17 Range/Units 12:04 17:03 20:33 RBC (4.30-5.90) m/uL Hgb (13.0-17.5) gm/dL Hct (39.0-53.0) % MCHC (31.0-37.0) g/dL Lymphocytes # (1.0-4.8) k/uL Sodium (137-145) mmol/L Chloride (98-107) mmol/L Carbon Dioxide (22-30) mmol/L BUN (9-20) mg/dL Creatinine (0.66-1.25) mg/dL Glucose (74-99) mg/dL POC Glucose (mg/dL) 177 H 168 H 155 H (75-99) mg/dL Calcium (8.4-10.2) mg/dL Microbiology - Last 24 Hours (Table) 05/16/17 09:41 Blood Culture Gram Stain - Preliminary Blood Blood Culture - Preliminary Presumptive MRSA 05/16/17 09:04 Blood Culture - Preliminary Blood No Growth after 24 hours 05/16/17 09:41 Blood Culture - Final Blood 05/14/17 18:13 Blood Culture Gram Stain - Final Blood Blood Culture - Final Methicillin resist S. aureus 05/14/17 17:09 Blood Culture Gram Stain - Final Blood Blood Culture - Final Methicillin resist S. aureus 05/14/17 09:37 Blood Culture Gram Stain - Final Blood Blood Culture - Final Methicillin resist S. aureus Laboratory Results WBC 8.8 k/uL (3.8-10.6) 05/17/17 09:55 RBC 3.04 m/uL (4.30-5.90) L 05/17/17 09:55 Hgb 8.8 gm/dL (13.0-17.5) L 05/17/17 09:55 Hct 28.6 % (39.0-53.0) L 05/17/17 09:55 MCV 94.2 fL (80.0-100.0) 05/17/17 09:55 MCH 28.9 pg (25.0-35.0) 05/17/17 09:55 MCHC 30.7 g/dL (31.0-37.0) L 05/17/17 09:55 RDW 14.3 % (11.5-15.5) 05/17/17 09:55 Plt Count 253 k/uL (150-450) 05/17/17 09:55 Neutrophils % 76 % 05/17/17 09:55 Lymphocytes % 10 % 05/17/17 09:55 Monocytes % 8 % 05/17/17 09:55 Eosinophils % 5 % 05/17/17 09:55 Basophils % 0 % 05/17/17 09:55 Neutrophils # 6.6 k/uL (1.3-7.7) 05/17/17 09:55 Lymphocytes # 0.9 k/uL (1.0-4.8) L 05/17/17 09:55 Monocytes # 0.7 k/uL (0-1.0) 05/17/17 09:55 Eosinophils # 0.5 k/uL (0-0.7) 05/17/17 09:55 Basophils # 0.0 k/uL (0-0.2) 05/17/17 09:55 Hypochromasia Slight 05/17/17 09:55 ESR 80 mm/hr (0-15) H 05/14/17 17:09 PT 10.8 sec (9.0-12.0) 05/12/17 22:10 INR 1.1 (<1.2) 05/12/17 22:10 APTT 20.2 sec (22.0-30.0) L 05/12/17 22:10 Sodium 135 mmol/L (137-145) L 05/17/17 09:55 Potassium 4.2 mmol/L (3.5-5.1) 05/17/17 09:55 Chloride 111 mmol/L (98-107) H 05/17/17 09:55 Carbon Dioxide 18 mmol/L (22-30) L 05/17/17 09:55 Anion Gap 6 mmol/L 05/17/17 09:55 BUN 43 mg/dL (9-20) H 05/17/17 09:55 Creatinine 1.75 mg/dL (0.66-1.25) H 05/17/17 09:55 Est GFR (MDRD) Af Amer 45 (>60 ml/min/1.73 sqM) 05/17/17 09:55 Est GFR (MDRD) Non-Af 37 (>60 ml/min/1.73 sqM) 05/17/17 09:55 Glucose 179 mg/dL (74-99) H 05/17/17 09:55 POC Glucose (mg/dL) 155 mg/dL (75-99) H 05/17/17 20:33 POC Glu [employer] ID Madelin Antoine 05/17/17 20:[address] Glu mg/dL 160 05/14/17 07:49 Hemoglobin A1c 7.2 % (4.0-6.0) H 05/14/17 07:49 Lactic Ac Sepsis Rflx Y 05/12/17 22:51 Plasma Lactic Acid Lorenzo 1.9 mmol/L (0.7-2.0) 05/13/17 01:00 EST Calcium 7.9 mg/dL (8.4-10.2) L 05/17/17 09:55 Total Bilirubin 0.5 mg/dL (0.2-1.3) 05/12/17 22:10 AST 22 U/L (17-59) 05/12/17 22:10 ALT 22 U/L (21-72) 05/12/17 22:10 Alkaline Phosphatase 89 U/L (38-126) 05/12/17 22:10 C-Reactive Protein 309.2 mg/L (<10.0) H 05/14/17 17:09 Total Protein 7.1 g/dL (6.3-8.2) 05/12/17 22:10 Albumin 3.7 g/dL (3.5-5.0) 05/12/17 22:10 Urine Color Dark Red 05/12/17 22:35 Urine Appearance Bloody (Clear) 05/12/17 22:35 Urine Blood Large (Negative) H 05/12/17 22:35 Urine RBC >182 /hpf (0-5) H 05/12/17 22:35 Urine WBC >182 /hpf (0-5) H 05/12/17 22:35 Stool Occult Blood Positive (Negative) 05/13/17 20:50 Random Vancomycin 19.1 ug/mL 05/16/17 09:04 Acetone, Qual Negative (Negative) 05/12/17 22:10 Influenza Type A RNA Not Detected (Not Detectd) 05/12/17 22:25 Influenza Type B (PCR) Not Detected (Not Detectd) 05/12/17 22:25 Assessment and Plan (1) UTI (urinary tract infection) Narrative/Plan: 81-year-old male presents to hospital with difficulties related to his urinary system. He has urinary retention and straight cath multiple times per day. Recently was having difficulties and was transitioned to a coud catheter. Despite that was unable to pass urine was having blood clots. He subsequently was admitted and has had cystoscopy with Ramesh catheter placement by urology. Urine culture and blood cultures reveal evidence of staph aureus likely MRSA as well as a strep. Antimicrobial therapy with vancomycin has been initiated. Follow blood cultures are requested Patient is more comfortable today. Will need outpatient intravenous antimicrobial therapy. Patient does continue to have positive blood cultures for MRSA. He is doing somewhat better now. Did have this procedure and hopefully with this will now have resolution of his bacteremia. Repeat blood cultures requested and remained positive. All the prior blood cultures are positive to date. Within one positive blood cultures the computed tomography scan abdomen and pelvis was performed. She evidence of the attenuating lesion within the rectum and prostate. This is discussed with the hospitalist as well as the urological surgeon. We'll ask for interventional radiology to perform a rectal ultrasound and aspiration of the site. Given the failure of vancomycin therapy, patient is changed to daptomycin. Current Visit: Yes Status: Acute Code(s): N39.0 - URINARY TRACT INFECTION, SITE NOT SPECIFIED SNOMED Code(s): 56192448 (2) MRSA bacteremia Current Visit: Yes Status: Acute Code(s): R78.81 - BACTEREMIA SNOMED Code( s): 02007309331632990 (3) Urethral obstruction Current Visit: Yes Status: Acute Code(s): N36.8 - OTHER SPECIFIED DISORDERS OF URETHRA SNOMED Code(s): 47664672 (4) Leukocytosis Current Visit: Yes Status: Acute Code(s): D72.829 - ELEVATED WHITE BLOOD CELL COUNT, UNSPECIFIED SNOMED Code(s): 645126520
[2017-05-18] MEDS: HYDROmorphone 1 MG/ML 1 ML SYRINGE IVP PRN ×6 (00:21→21:01)
[2017-05-18] MEDS: SODIUM CHLORIDE 0.9% 1,000 ML IV SCH (04:31)
[2017-05-18 07:25] LABS: Glucose,Whole Blood 108 mg/dL (75-99)
[2017-05-18] MEDS: INSULIN ASPART 100 UNIT/ML 1 ML 10 ML VIAL SQ SCH ×4 (08:16→21:06)
[2017-05-18] MEDS: POLYETHYLENE GLYCOL 3350 17 GM POWD.PACK PO SCH (08:20)
[2017-05-18] MEDS: PANTOPRAZOLE 40 MG TABLET PO SCH (08:21)
[2017-05-18] MEDS: METOPROLOL TARTRATE 50 MG TAB PO SCH ×2 (08:21→21:09)
[2017-05-18] MEDS: FINASTERIDE 5 MG TAB PO SCH (08:21)
[2017-05-18 08:52] LABS: CH 28.7; CHCM 31.5; HDW 2.91; HGB 9.9 gm/dL (13.0-17.5); Hypochromasia Slight; MCH 29.2 pg (25.0-35.0); MCHC 31.8 g/dL (31.0-37.0); MCV 91.6 fL (80.0-100.0); Mean Platelet Volume 7.1; RBC 3.38 m/uL (4.30-5.90); RDW 15.2 % (11.5-15.5); WBC 12.1 k/uL (3.8-10.6)
[2017-05-18 09:07] LABS: Calcium 8.3 mg/dL (8.4-10.2); Potassium 4.5 mmol/L (3.5-5.1)
--- NOTE | 2017-05-18 10:29 | P.PN ---
Subjective Progress Note Date: 05/18/17 Principal diagnosis: hematuria Patient is an 81-year-old male with a past medical history of bladder obstruction requiring clean intermittent cath, hypertension, dyslipidemia, and diabetes mellitus who presented to the hospital with complaints of right hip pain, hematuria, fever, and chills. In the ER he underwent an extensive evaluation. On arrival he was found to have a fever of 102.7 and was hypertensive to 230/98. Initial laboratory analysis showed a white blood cell count of 14.7, sodium 136, potassium 5.3, when necessary of 45, glucose of 3 and creatinine of 1.5. He also had a plasma lactic acid of 2.9. Urinalysis was grossly bloody and consistent with possible urinary tract infection. He underwent a chest x-ray which was negative and a hip and pelvis x-ray which showed no acute abnormality. He was started on IV fluids, IV antibiotics, and is all this was held. He was admitted to the general medical floor for further monitoring and care. Urology was consulted. He could not self cath and therefore urology was consult it. He ultimately went to the OR and had a cystoscopy with placement of Ramesh catheter. He was also found to have fecal occult blood positive stools seen by GI. He had a colonoscopy 5-6 years ago and did not want to proceed with an inpatient colonoscopy at this time. His blood cultures came back positive with MRSA. Infectious disease was consulted. His urine ultimately showed MRSA and strep agalactiae. His antibiotics were broadened to vancomycin. After several days he still did not have clearing of his blood cultures and then antibiotics were transitioned to dapto on 05/15. He also underwent echocardiogram which showed a normal ejection fraction of 55-60% and no signs of endocarditis. His blood cultures continue to be positive and on 05 [address] of the abdomen and pelvis which showed possible abscess along the right anterior lateral aspect of the distal rectum and right side of the prostate, inflammatory edema in the pelvis, 1.4 cm right hepatic lobe lesion, and chronic bladder wall hypertrophy with cystitis. Infectious disease, urology, and Dr. Madera discussed the case. It was determined that the best approach may be rectal ultrasound and aspiration of the area by interventional radiology. Unfortunately his eliquis had been trestarted on 05/17. Ultrasound of the live was also ordered on 05/18. Patient seen and examined at bedside. He complains of continued right groin pain. He states the pain medicine take it away but as soon as they wear off at his back. He also complains of constipation and has not had a bowel movement 2 days. He denies any penile pain. He denies any chest pain, shortness of breath , nausea, or vomiting. He has decreased appetite. Objective - Vital Signs Vital signs: Vital Signs Temp 97.1 F L 05/18/17 05:55 Pulse 103 H 05/18/17 05:55 Resp 16 05/18/17 05:55 BP 143/73 05/18/17 05:55 Pulse Ox 98 05/18/17 05:55 Intake & Output 05/17/17 05/18/17 05/18/17 18:59 06:59 18:59 Intake Total 250 Output Total 1400 1900 Balance -1150 -1900 Weight 103 kg Intake: Oral 250 Output: Urine 1400 1900 Other: Voiding Method Indwelling Catheter Indwelling Catheter # Bowel Movements 1 - Exam General: non toxic, mild distress secondary to pain, appears at stated age Derm: no rashes, no lesions Head: atraumatic, normocephalic, symmetric Eyes: EOMI, no lid lag, anicteric sclera ENT: no post nasal drip, no thrush Mouth: no lip lesion, mucus membranes moist Cardiovascular: S1S2 reg, no murmur, positive posterior tibial pulse bilateral, Lungs: Decreased breath sounds bilateral bases, no rhonchi, no rales , no accessory muscle use Abdominal: soft, nontender to palpation, no guarding, no appreciable organomegaly Ext: no gross muscle atrophy, no edema, no contractures Neuro: CN II-XI grossly intact, no focal neuro deficits Psych: Alert, oriented, appropriate affect - Labs CBC & Chem 7: 05/18/17 07:44 05/18/17 07:44 Labs: Abnormal Lab Results - Last 24 Hours (Table) 05/17/17 05/17/17 05/17/17 Range/Units 09:55 09:55 12:04 WBC (3.8-10.6) k/uL RBC 3.04 L (4.30-5.90) m/uL Hgb 8.8 L (13.0-17.5) gm/dL Hct 28.6 L (39.0-53.0) % MCHC 30.7 L (31.0-37.0) g/dL Lymphocytes # 0.9 L (1.0-4.8) k/uL Sodium 135 L (137-145) mmol/L Chloride 111 H (98-107) mmol/L Carbon Dioxide 18 L (22-30) mmol/L BUN 43 H (9-20) mg/dL Creatinine 1.75 H (0.66-1.25) mg/dL Glucose 179 H (74-99) mg/dL POC Glucose (mg/dL) 177 H (75-99) mg/dL Calcium 7.9 L (8.4-10.2) mg/dL 05/17/17 05/17/17 05/18/17 Range/Units 17:03 20:33 07:19 WBC (3.8-10.6) k/uL RBC (4.30-5.90) m/uL Hgb (13.0-17.5) gm/dL Hct (39.0-53.0) % MCHC (31.0-37.0) g/dL Lymphocytes # (1.0-4.8) k/uL Sodium (137-145) mmol/L Chloride (98-107) mmol/L Carbon Dioxide (22-30) mmol/L BUN (9-20) mg/dL Creatinine (0.66-1.25) mg/dL Glucose (74-99) mg/dL POC Glucose (mg/dL) 168 H 155 H 108 H (75-99) mg/dL Calcium (8.4-10.2) mg/dL 05/18/17 05/18/17 Range/Units 07:44 07:44 WBC 12.1 H (3.8-10.6) k/uL RBC 3.38 L (4.30-5.90) m/uL Hgb 9.9 L (13.0-17.5) gm/dL Hct 31.0 L (39.0-53.0) % MCHC (31.0-37.0) g/dL Lymphocytes # (1.0-4.8) k/uL Sodium (137-145) mmol/L Chloride 108 H (98-107) mmol/L Carbon Dioxide (22-30) mmol/L BUN 33 H (9-20) mg/dL Creatinine 1.59 H (0.66-1.25) mg/dL Glucose 103 H (74-99) mg/dL POC Glucose (mg/dL) (75-99) mg/dL Calcium 8.3 L (8.4-10.2) mg/dL Microbiology - Last 24 Hours (Table) 05/16/17 09:41 Blood Culture Gram Stain - Preliminary Blood Blood Culture - Preliminary Presumptive MRSA 05/16/17 09:04 Blood Culture - Preliminary Blood No Growth after 24 hours 05/16/17 09:41 Blood Culture - Final Blood 05/14/17 18:13 Blood Culture Gram Stain - Final Blood Blood Culture - Final Methicillin resist S. aureus 05/14/17 17:09 Blood Culture Gram Stain - Final Blood Blood Culture - Final Methicillin resist S. aureus Assessment and Plan Assessment: Persistent MRSA bacteremia with probable perirectal abscess due to MRSA and strep UTI, POA, due to to clean intermittent cath -Continue with dapto IV -Await hearing back from radiology if they can preform aspiration with eliquis given yesterday -Infectious disease and urology recommendations appreciated -Repeat blood cultures in a.m. -PICC canceled until blood cultures are clear, will need 4 weeks of IV abx from date that cultures are cleared. Bladder outlet obstruction -Urology recommendations appreciated -Status post cystoscopy 05/14 -Plan on discharge home with Ramesh catheter in place and follow up with urology in 2 weeks -Continue with Proscar and Flomax Liver lesion -Liver ultrasound to determine if abscess versus neoplasm versus cyst Diabetes mellitus with hyperglycemia -Continue with sliding scale insulin and long-acting insulin, sugar is improving -Hemoglobin A1c 7.2 Acute kidney injury, likely secondary to bladder outlet obstruction -Creatinine improving -CKD stage III with baseline creatinine of 1.5 Hypertension, hypertensive urgency on arrival now resolved -Continue metoprolol -Follow blood pressures Paroxysmal atrial fibrillation -Rate controlled -Continue metoprolol -Off liquids until all procedures completed Resolved/chronic: Guaiac positive stools Hyponatremia Hyperkalemia Elevated lactic acid Hyperglycemia Sepsis Dyslipidemia Coronary artery disease Discussed with Dr James and he recommends transrectal ultrasound first and if shows abscess than can proceed with aspiration. DVT prophylaxis: SCDs Discussed with: Patient, nursing Anticipated discharge: Sunday or Sunday of next week if blood cultures negative , will need 4 weeks of IV antibiotics Anticipated discharge place: [facility] A total of 45 minutes was spent on the care of this complex patient more than 50 % of the time was spent in counseling and care coordination.
[2017-05-18 10:43] LABS: Prothrombin Time 10.5 sec (9.0-12.0)
[2017-05-18] MEDS: HYDROcodone/APAP 5-325MG 1 EACH TAB PO PRN ×3 (12:36→23:10)
[2017-05-18 13:00] LABS: Glucose,Whole Blood 91 mg/dL (75-99)
[2017-05-18 13:42] VITALS: BMI 31.6
--- NOTE | 2017-05-18 14:23 | P.PN ---
Progress Note - Text Progress Note Date: 05/18/17 Mr. Leslie continues to feel better each day. He underwent a transrectal ultrasound earlier today, to look for a possible fluid collection between the rectum and prostate. A report is pending, and I do not know at this time whether there was a fluid collection which was aspirated. In any case, he states that he feels better following this procedure. He remains afebrile. He denies abdominal discomfort. The Ramesh catheter continues to drain clear yellow urine. He will continue to receive IV antibiotics, and I will review the ultrasound report when available. Dr. Jackson will be covering in my absence through 05/20/2017.
--- NOTE | 2017-05-18 14:33 | US ---
EXAMINATION TYPE: US liver DATE OF EXAM: 05/18/2017 COMPARISON: CT abdomen pelvis 05/17/2017, ultrasound kidneys 05/25/2016 and 05/13/2017 CLINICAL HISTORY: mass, abscess- persistent + MRSA blood culture. NPO EXAM MEASUREMENTS: Liver Length: 15.7 cm Gallbladder Wall: 0.3 cm CHD: 0.6 cm Right Kidney: 10.8 x 5.7 x 5.4 cm Pancreas: Obscured by bowel gas Liver: No prominent masses or lesions seen. Portal vein miller appear echogenic. Gallbladder: Echogenic focus seen in fundal region, nonmobile with shadow = 2.1 cm Evidence for sonographic Hines's sign: neg CHD: wnl Right Kidney: wnl Note is made on the CT scan of irregular lucent appearance with fractures involving the pubic symphys is on the right and there is some associated asymmetric muscular thickening at this level IMPRESSION: Cholelithiasis. Abnormal lucency involving the pubic bone on the right with fractures, co rrelate for history of trauma, consider bone scan as indicated. Limited exam. The abnormal low attenu ation seen within the liver on CT scan is not confirmed on ultrasound. Additional findings above.
[2017-05-18 16:59] LABS: Glucose,Whole Blood 131 mg/dL (75-99)
[2017-05-18] MEDS: TAMSULOSIN 0.4 MG CAP.ER.24H PO SCH (17:40)
[2017-05-18 20:46] LABS: Glucose,Whole Blood 198 mg/dL (75-99)
[2017-05-18] MEDS: INSULIN DETEMIR 100 UNIT/ML 10 ML VIAL SQ SCH (21:06)
[2017-05-18] MEDS: ATORVASTATIN 10 MG TAB PO SCH (21:09)
--- NOTE | 2017-05-18 23:00 | P.PN ---
Subjective Progress Note Date: 05/18/17 Principal diagnosis: Sepsis 81-year-old male that is a history of multiple medical troubles that include urinary retention. The patient routinely straight caths 4 times per day. Relates over the last months has had increasing difficulties with self catheterization. Red rubber catheter required transition to a stiffer catheter to allow insertion.. The patient then started having further difficulties in need to be changed to a coud catheter for catheterization. The patient then started to have difficulties with hematuria. And then developed clots and was no longer able to pass any urine. And consequently presented to Hospital. He has been seen by urology and cystoscopy was performed with placement at that time of Ramesh catheter. Patient has evidence of sepsis with noted ongoing positive blood cultures. Patient relates started to feel slightly better. He felt very poorly at admission with fever and malaise. Fever is now improved. However continues to have evidence of positive blood cultures. Because of the concerns to the infection in the deep pelvis a transrectal ultrasound was performed. No evidence of any true abscess was noted. A potential fracture or infection to the pelvic bone was noticed Objective - Vital Signs Vital signs: Vital Signs Temp 97.1 F L 05/18/17 18:47 Pulse 103 H 05/18/17 18:47 Resp 18 05/18/17 18:47 BP 132/67 05/18/17 18:47 Pulse Ox 100 05/18/17 18:47 Intake & Output 05/18/17 05/18/17 05/19/17 06:59 18:59 06:59 Output Total 1900 1500 Balance -1900 -1500 Weight 103 kg 103 kg Output: Urine 1900 1500 Other: Voiding Method Indwelling Catheter Indwelling Catheter # Bowel Movements 1 0 - Exam 81-year-old male comfortable at this time HEENT: Anicteric conjunctiva are pink and moist nasal mucosa grossly intact without significant lesions, there is no thrush. Neck: The neck is supple without significant lymphadenopathy or thyromegaly. Lungs: Good bilateral air entry without significant crackles or wheezing. There is no significant bronchial sounds. There is no egophony or dullness. Heart: Regular rate and rhythm with an audible S1-S2, no S3 no S4. There is no significant murmur click or rub, PMI was nondisplaced. Abdomen: Obese Positive bowel sounds soft suprapubic tenderness, without palpable masses or organomegaly. There was no guarding or rebound. No flank tenderness, but continues to have that tenderness into the right deep pelvic area. Extremities: The upper extremities have excellent pulses they are symmetric, no significant petechiae or telangiectasia. No splinter hemorrhages were noted. The lower extremities are free from significant edema. The peripheral pulses were 2+ and symmetric. Neuro: Awake alert oriented to person place and time. There are no acute new gross focal sensory motor deficits. - Labs CBC & Chem 7: 05/18/17 07:44 05/18/17 07:44 Labs: Abnormal Lab Results - Last 24 Hours (Table) 05/18/17 05/18/17 05/18/17 Range/Units 07:19 07:44 07:44 WBC 12.1 H (3.8-10.6) k/uL RBC 3.38 L (4.30-5.90) m/uL Hgb 9.9 L (13.0-17.5) gm/dL Hct 31.0 L (39.0-53.0) % Chloride 108 H (98-107) mmol/L BUN 33 H (9-20) mg/dL Creatinine 1.59 H (0.66-1.25) mg/dL Glucose 103 H (74-99) mg/dL POC Glucose (mg/dL) 108 H (75-99) mg/dL Calcium 8.3 L (8.4-10.2) mg/dL 05/18/17 05/18/17 Range/Units 16:44 20:44 WBC (3.8-10.6) k/uL RBC (4.30-5.90) m/uL Hgb (13.0-17.5) gm/dL Hct (39.0-53.0) % Chloride (98-107) mmol/L BUN (9-20) mg/dL Creatinine (0.66-1.25) mg/dL Glucose (74-99) mg/dL POC Glucose (mg/dL) 131 H 198 H (75-99) mg/dL Calcium (8.4-10.2) mg/dL Microbiology - Last 24 Hours (Table) 05/16/17 09:41 Blood Culture Gram Stain - Final Blood Blood Culture - Final Methicillin resist S. aureus 05/16/17 09:04 Blood Culture - Preliminary Blood No Growth after 48 hours Laboratory Results WBC 12.1 k/uL (3.8-10.6) H 05/18/17 07:44 RBC 3.38 m/uL (4.30-5.90) L 05/18/17 07:44 Hgb 9.9 gm/dL (13.0-17.5) L 05/18/17 07:44 Hct 31.0 % (39.0-53.0) L 05/18/17 07:44 MCV 91.6 fL (80.0-100.0) 05/18/17 07:44 MCH 29.2 pg (25.0-35.0) 05/18/17 07:44 MCHC 31.8 g/dL (31.0-37.0) 05/18/17 07:44 RDW 15.2 % (11.5-15.5) 05/18/17 07:44 Plt Count 284 k/uL (150-450) 05/18/17 07:44 Neutrophils % 76 % 05/17/17 09:55 Lymphocytes % 10 % 05/17/17 09:55 Monocytes % 8 % 05/17/17 09:55 Eosinophils % 5 % 05/17/17 09:55 Basophils % 0 % 05/17/17 09:55 Neutrophils # 6.6 k/uL (1.3-7.7) 05/17/17 09:55 Lymphocytes # 0.9 k/uL (1.0-4.8) L 05/17/17 09:55 Monocytes # 0.7 k/uL (0-1.0) 05/17/17 09:55 Eosinophils # 0.5 k/uL (0-0.7) 05/17/17 09:55 Basophils # 0.0 k/uL (0-0.2) 05/17/17 09:55 Hypochromasia Slight 05/18/17 07:44 ESR 80 mm/hr (0-15) H 05/14/17 17:09 PT 10.5 sec (9.0-12.0) 05/18/17 09:52 INR 1.0 (<1.2) 05/18/17 09:52 APTT 20.2 sec (22.0-30.0) L 05/12/17 22:10 Sodium 137 mmol/L (137-145) 05/18/17 07:44 Potassium 4.5 mmol/L (3.5-5.1) 05/18/17 07:44 Chloride 108 mmol/L (98-107) H 05/18/17 07:44 Carbon Dioxide 22 mmol/L (22-30) 05/18/17 07:44 Anion Gap 7 mmol/L 05/18/17 07:44 BUN 33 mg/dL (9-20) H 05/18/17 07:44 Creatinine 1.59 mg/dL (0.66-1.25) H 05/18/17 07:44 Est GFR (MDRD) Af Amer 51 (>60 ml/min/1.73 sqM) 05/18/17 07:44 Est GFR (MDRD) Non-Af 42 (>60 ml/min/1.73 sqM) 05/18/17 07:44 Glucose 103 mg/dL (74-99) H 05/18/17 07:44 POC Glucose (mg/dL) 198 mg/dL (75-99) H 05/18/17 20:44 POC Glu [employer] TABBY Renetta Goldsmith 05/18/17 20:[address] Glu mg/dL 160 05/14/17 07:49 Hemoglobin A1c 7.2 % (4.0-6.0) H 05/14/17 07:49 Lactic Ac Sepsis Rflx Y 05/12/17 22:51 Plasma Lactic Acid Lorenzo 1.9 mmol/L (0.7-2.0) 05/13/17 01:00 EST Calcium 8.3 mg/dL (8.4-10.2) L 05/18/17 07:44 Total Bilirubin 0.5 mg/dL (0.2-1.3) 05/12/17 22:10 AST 22 U/L (17-59) 05/12/17 22:10 ALT 22 U/L (21-72) 05/12/17 22:10 Alkaline Phosphatase 89 U/L (38-126) 05/12/17 22:10 C-Reactive Protein 309.2 mg/L (<10.0) H 05/14/17 17:09 Total Protein 7.1 g/dL (6.3-8.2) 05/12/17 22:10 Albumin 3.7 g/dL (3.5-5.0) 05/12/17 22:10 Urine Color Dark Red 05/12/17 22:35 Urine Appearance Bloody (Clear) 05/12/17 22:35 Urine Blood Large (Negative) H 05/12/17 22:35 Urine RBC >182 /hpf (0-5) H 05/12/17 22:35 Urine WBC >182 /hpf (0-5) H 05/12/17 22:35 Stool Occult Blood Positive (Negative) 05/13/17 20:50 Random Vancomycin 19.1 ug/mL 05/16/17 09:04 Acetone, Qual Negative (Negative) 05/12/17 22:10 Influenza Type A RNA Not Detected (Not Detectd) 05/12/17 22:25 Influenza Type B (PCR) Not Detected (Not Detectd) 05/12/17 22:25 Microbiology 05/16/17 09:41 Blood Blood Culture Gram Stain - Final 05/16/17 09:41 Blood Blood Culture - Final Methicillin resist S. aureus 05/16/17 09:04 Blood Blood Culture - Preliminary No Growth after 48 hours 05/16/17 09:41 Blood Blood Culture - Final 05/14/17 18:13 Blood Blood Culture Gram Stain - Final 05/14/17 18:13 Blood Blood Culture - Final Methicillin resist S. aureus 05/14/17 17:09 Blood Blood Culture Gram Stain - Final 05/14/17 17:09 Blood Blood Culture - Final Methicillin resist S. aureus 05/14/17 09:37 Blood Blood Culture Gram Stain - Final 05/14/17 09:37 Blood Blood Culture - Final Methicillin resist S. aureus 05/14/17 09:37 Blood Blood Culture - Final 05/14/17 18:13 Blood Blood Culture - Final 05/14/17 17:09 Blood Blood Culture - Final 05/12/17 22:35 Urine,Clean Catch Urine Culture - Final Methicillin resist S. aureus Strep agalactiae - (group b) 05/12/17 22:10 Blood Blood Culture Gram Stain - Final 05/12/17 22:10 Blood Blood Culture - Final Methicillin resist S. aureus 05/12/17 22:10 Blood Blood Culture - Final Assessment and Plan (1) UTI (urinary tract infection) Narrative/Plan: 81-year-old male presents to hospital with difficulties related to his urinary system. He has urinary retention and straight cath multiple times per day. Recently was having difficulties and was transitioned to a coud catheter. Despite that was unable to pass urine was having blood clots. He subsequently was admitted and has had cystoscopy with Ramesh catheter placement by urology. Urine culture and blood cultures reveal evidence of staph aureus likely MRSA as well as a strep. Antimicrobial therapy with vancomycin has been initiated. Follow blood cultures are requested Patient is more comfortable today. Will need outpatient intravenous antimicrobial therapy. Patient does continue to have positive blood cultures for MRSA. He is doing somewhat better now. Did have this procedure and hopefully with this will now have resolution of his bacteremia. Repeat blood cultures requested and remained positive. All the prior blood cultures are positive to date. Within one positive blood cultures the computed tomography scan abdomen and pelvis was performed. he evidence of the attenuating lesion within the rectum and prostate. This is discussed with the hospitalist as well as the urological surgeon. With concerns as could be a fluid collection a transrectal ultrasound occurred. No evidence of any abscess was noted. But fracture infection of the right- sided pubic symphysis is noted. Because of this a bone scan has been requested. Antimicrobial therapy was altered to daptomycin with what appears to be failure of prior vancomycin therapy. Once his clearance of his bacteremia PICC line to be placed and then the 6 week course of outpatient intravenous antistaphylococcal therapy will be utilized Current Visit: Yes Status: Acute Code(s): N39.0 - URINARY TRACT INFECTION, SITE NOT SPECIFIED SNOMED Code(s): 15583447 (2) MRSA bacteremia Current Visit: Yes Status: Acute Code(s): R78.81 - BACTEREMIA SNOMED Code( s): 23823080888230924 (3) Urethral obstruction Current Visit: Yes Status: Acute Code(s): N36.8 - OTHER SPECIFIED DISORDERS OF URETHRA SNOMED Code(s): 18816243 (4) Leukocytosis Current Visit: Yes Status: Acute Code(s): D72.829 - ELEVATED WHITE BLOOD CELL COUNT, UNSPECIFIED SNOMED Code(s): 300558286
[2017-05-18] MEDS: DAPTOmycin IN 0.9% NACL 500 MG/10 ML SYRINGE IVP SCH (23:11)
[2017-05-19] MEDS: HYDROmorphone 1 MG/ML 1 ML SYRINGE IVP PRN ×3 (03:06→11:07)
[2017-05-19] MEDS: HYDROcodone/APAP 5-325MG 1 EACH TAB PO PRN ×4 (03:06→19:59)
[2017-05-19] MEDS: SODIUM CHLORIDE 0.9% 1,000 ML IV SCH (03:09)
[2017-05-19 07:51] LABS: Glucose,Whole Blood 86 mg/dL (75-99)
[2017-05-19 08:03] LABS: CH 28.6; CHCM 30.8; HCT 33.1 % (39.0-53.0); HDW 2.92; HGB 10.2 gm/dL (13.0-17.5); Hypochromasia Moderate; MCH 28.8 pg (25.0-35.0); MCHC 30.8 g/dL (31.0-37.0); MCV 93.5 fL (80.0-100.0); Mean Platelet Volume 6.8; RBC 3.53 m/uL (4.30-5.90); RDW 15.2 % (11.5-15.5); WBC 11.3 k/uL (3.8-10.6)
[2017-05-19 08:23] LABS: Calcium 8.3 mg/dL (8.4-10.2); Potassium 4.2 mmol/L (3.5-5.1); Total Bilirubin 0.1 mg/dL (0.2-1.3); Total Protein 5.6 g/dL (6.3-8.2)
--- NOTE | 2017-05-19 08:39 | P.PN ---
Subjective Progress Note Date: 05/19/17 Principal diagnosis: hematuria Patient is an 81-year-old male with a past medical history of bladder obstruction requiring clean intermittent cath, hypertension, dyslipidemia, and diabetes mellitus who presented to the hospital with complaints of right hip pain, hematuria, fever, and chills. In the ER he underwent an extensive evaluation. On arrival he was found to have a fever of 102.7 and was hypertensive to 230/98. Initial laboratory analysis showed a white blood cell count of 14.7, sodium 136, potassium 5.3, when necessary of 45, glucose of 3 and creatinine of 1.5. He also had a plasma lactic acid of 2.9. Urinalysis was grossly bloody and consistent with possible urinary tract infection. He underwent a chest x-ray which was negative and a hip and pelvis x-ray which showed no acute abnormality. He was started on IV fluids, IV antibiotics, and his eliquis was held. He was admitted to the general medical floor for further monitoring and care. Urology was consulted. He could not self cath and therefore urology was consulted. He ultimately went to the OR and had a cystoscopy with placement of Ramesh catheter. He was also found to have fecal occult blood positive stools seen by GI. He had a colonoscopy 5-6 years ago and did not want to proceed with an inpatient colonoscopy at this time. His blood cultures came back positive with MRSA. Infectious disease was consulted. His urine ultimately showed MRSA and strep agalactiae. His antibiotics were broadened to vancomycin. After several days he still did not have clearing of his blood cultures and then antibiotics were transitioned to dapto on 05/15. He also underwent echocardiogram which showed a normal ejection fraction of 55-60% and no signs of endocarditis. His blood cultures continued to be positive and on 05/17 and he underwent a CT of the abdomen and pelvis which showed possible abscess along the right anterior lateral aspect of the distal rectum and right side of the prostate, inflammatory edema in the pelvis, 1.4 cm right hepatic lobe lesion, and chronic bladder wall hypertrophy with cystitis. Infectious disease, urology, and Dr. Madera discussed the case. It was determined that the best approach may be rectal ultrasound and aspiration of the area by interventional radiology. He underwent rectal ultrasound that there was not a definitive area to be drained. He underwent ultrasound of the liver which did not really demonstrate the right hepatic lobe lesion. CAT scan of the abdomen and pelvis was reviewed and was determined that there was a lucency with fracture the right pubic rami, bone scan was recommended. Orthopedics was consulted. Bone scan performed 05/19. Patient seen and examined at bedside. Was uncomfortable last night and had problems sleeping. Does not want to try melatonin. He states his pain medicines are helping but it was just a general discomfort and he does not need them adjusted. He still has not had a bowel movement. He denies any chest pain, shortness of breath, nausea, or vomiting. All questions are answered with nurse present at bedside. Objective - Vital Signs Vital signs: Vital Signs Temp 97.6 F 05/19/17 07:00 Pulse 113 H 05/19/17 07:00 Resp 20 05/19/17 07:00 BP 134/71 05/19/17 07:00 Pulse Ox 98 05/19/17 07:00 Intake & Output 05/18/17 05/19/17 05/19/17 18:59 06:59 18:59 Output Total 1500 1150 Balance -1500 -1150 Weight 103 kg Output: Urine 1500 1150 Other: Voiding Method Indwelling Catheter Indwelling Catheter # Bowel Movements 0 - Exam General: non toxic, No distress, appears at stated age Derm: no rashes, no lesions Head: atraumatic, normocephalic, symmetric Eyes: EOMI, no lid lag, anicteric sclera ENT: no post nasal drip, no thrush Mouth: no lip lesion, mucus membranes moist Cardiovascular: S1S2 reg, no murmur, positive posterior tibial pulse bilateral, Lungs: Decreased breath sounds bilateral bases, no rhonchi, no rales , no accessory muscle use Abdominal: soft, nontender to palpation, no guarding, no appreciable organomegaly Ext: no gross muscle atrophy, no edema, no contractures Neuro: CN II-XI grossly intact, no focal neuro deficits Psych: Alert, oriented, appropriate affect - Labs CBC & Chem 7: 05/19/17 07:40 05/18/17 07:44 Labs: Abnormal Lab Results - Last 24 Hours (Table) 05/18/17 05/18/17 05/18/17 Range/Units 07:44 07:44 16:44 WBC 12.1 H (3.8-10.6) k/uL RBC 3.38 L (4.30-5.90) m/uL Hgb 9.9 L (13.0-17.5) gm/dL Hct 31.0 L (39.0-53.0) % MCHC (31.0-37.0) g/dL Chloride 108 H (98-107) mmol/L BUN 33 H (9-20) mg/dL Creatinine 1.59 H (0.66-1.25) mg/dL Glucose 103 H (74-99) mg/dL POC Glucose (mg/dL) 131 H (75-99) mg/dL Calcium 8.3 L (8.4-10.2) mg/dL 05/18/17 05/19/17 Range/Units 20:44 07:40 WBC 11.3 H (3.8-10.6) k/uL RBC 3.53 L (4.30-5.90) m/uL Hgb 10.2 L (13.0-17.5) gm/dL Hct 33.1 L (39.0-53.0) % MCHC 30.8 L (31.0-37.0) g/dL Chloride (98-107) mmol/L BUN (9-20) mg/dL Creatinine (0.66-1.25) mg/dL Glucose (74-99) mg/dL POC Glucose (mg/dL) 198 H (75-99) mg/dL Calcium (8.4-10.2) mg/dL Microbiology - Last 24 Hours (Table) 05/16/17 09:41 Blood Culture Gram Stain - Final Blood Blood Culture - Final Methicillin resist S. aureus 05/16/17 09:04 Blood Culture - Preliminary Blood No Growth after 48 hours Assessment and Plan Assessment: Persistent MRSA bacteremia with probable perirectal abscess due to MRSA and strep UTI, POA, due to to clean intermittent cath -Continue with dapto IV -No abscess amenable to aspiration in plevis on rectal ultrasound -Infectious disease and urology recommendations appreciated -Repeat blood cultures pending, 1/2 cultures on 05/16 are negative. -PICC canceled until blood cultures are clear, will need 4 weeks of IV abx from date that cultures are cleared. Bladder outlet obstruction -Urology recommendations appreciated -Status post cystoscopy 05/14 -Plan on discharge with Ramesh catheter in place and follow up with urology in 2 weeks -Continue with Proscar and Flomax Constipation - maximize bowel regiment. Liver lesion -Liver ultrasound was not able to identify a significant lesion Diabetes mellitus with hyperglycemia -Continue with sliding scale insulin and long-acting insulin, sugar is improving -Hemoglobin A1c 7.2 Acute kidney injury, likely secondary to bladder outlet obstruction -Creatinine improving -CKD stage III with baseline creatinine of 1.5 Hypertension, hypertensive urgency on arrival now resolved -Continue metoprolol -Follow blood pressures Paroxysmal atrial fibrillation -Rate controlled -Continue metoprolol -Off eliquis until all procedures completed Resolved/chronic: Guaiac positive stools Hyponatremia Hyperkalemia Elevated lactic acid Hyperglycemia Sepsis Dyslipidemia Coronary artery disease DVT prophylaxis: Heparin SC Discussed with: Patient, nursing Anticipated discharge: Sunday or Sunday of next week if blood cultures negative , will need 4 weeks of IV antibiotics Anticipated discharge place: [facility] A total of 45 minutes was spent on the care of this complex patient more than 50 % of the time was spent in counseling and care coordination.
--- NOTE | 2017-05-19 09:02 | P.PN ---
Subjective Progress Note Date: 05/19/17 Principal diagnosis: The patient is sleeping. His vital signs are stable. He is afebrile. His white count is down to 11.3. Recommend continuing with present management. Objective - Vital Signs Vital signs: Vital Signs Temp 97.6 F 05/19/17 07:00 Pulse 113 H 05/19/17 07:00 Resp 20 05/19/17 07:00 BP 134/71 05/19/17 07:00 Pulse Ox 98 05/19/17 07:00 Intake & Output 05/18/17 05/19/17 05/19/17 18:59 06:59 18:59 Output Total 1500 1150 Balance -1500 -1150 Weight 103 kg Output: Urine 1500 1150 Other: Voiding Method Indwelling Catheter Indwelling Catheter # Bowel Movements 0 - Labs CBC & Chem 7: 05/19/17 07:40 05/19/17 07:40 Labs: Abnormal Lab Results - Last 24 Hours (Table) 05/18/17 05/18/17 05/18/17 Range/Units 07:44 16:44 20:44 WBC (3.8-10.6) k/uL RBC (4.30-5.90) m/uL Hgb (13.0-17.5) gm/dL Hct (39.0-53.0) % MCHC (31.0-37.0) g/dL Sodium (137-145) mmol/L Chloride 108 H (98-107) mmol/L Carbon Dioxide (22-30) mmol/L BUN 33 H (9-20) mg/dL Creatinine 1.59 H (0.66-1.25) mg/dL Glucose 103 H (74-99) mg/dL POC Glucose (mg/dL) 131 H 198 H (75-99) mg/dL Calcium 8.3 L (8.4-10.2) mg/dL Total Bilirubin (0.2-1.3) mg/dL Total Protein (6.3-8.2) g/dL Albumin (3.5-5.0) g/dL 05/19/17 05/19/17 Range/Units 07:40 07:40 WBC 11.3 H (3.8-10.6) k/uL RBC 3.53 L (4.30-5.90) m/uL Hgb 10.2 L (13.0-17.5) gm/dL Hct 33.1 L (39.0-53.0) % MCHC 30.8 L (31.0-37.0) g/dL Sodium 135 L (137-145) mmol/L Chloride 108 H (98-107) mmol/L Carbon Dioxide 19 L (22-30) mmol/L BUN 29 H (9-20) mg/dL Creatinine 1.48 H (0.66-1.25) mg/dL Glucose (74-99) mg/dL POC Glucose (mg/dL) (75-99) mg/dL Calcium 8.3 L (8.4-10.2) mg/dL Total Bilirubin 0.1 L (0.2-1.3) mg/dL Total Protein 5.6 L (6.3-8.2) g/dL Albumin 2.3 L (3.5-5.0) g/dL Microbiology - Last 24 Hours (Table) 05/16/17 09:41 Blood Culture Gram Stain - Final Blood Blood Culture - Final Methicillin resist S. aureus 05/16/17 09:04 Blood Culture - Preliminary Blood No Growth after 48 hours
[2017-05-19] MEDS: INSULIN ASPART 100 UNIT/ML 1 ML 10 ML VIAL SQ SCH ×4 (09:41→20:49)
[2017-05-19] MEDS: METOPROLOL TARTRATE 50 MG TAB PO SCH ×2 (09:41→20:01)
[2017-05-19] MEDS: POLYETHYLENE GLYCOL 3350 17 GM POWD.PACK PO SCH (09:41)
[2017-05-19] MEDS: PANTOPRAZOLE 40 MG TABLET PO SCH (09:42)
[2017-05-19] MEDS: FINASTERIDE 5 MG TAB PO SCH (09:42)
[2017-05-19] MEDS: LACTULOSE 20 GM/30 ML CUP PO PRN (11:08)
--- NOTE | 2017-05-19 11:15 | NM ---
EXAMINATION TYPE: NM bone 3 phase DATE OF EXAM: 05/19/2017 COMPARISON: NONE HISTORY: Right hip pain Triple phase bone scintigraphy was performed following the injection of26.7 mCi Tc 99m MDP. Immediat e images and 3.5 hours post injection images acquired. FINDINGS: Flow and pool imaging is normal. Delayed static imaging shows a focus of increased activity within the left acetabulum and a second lesion in the sacrum and coccyx. No definite right-sided abn ormality is seen. IMPRESSION: AREAS OF INCREASED ACTIVITY DESCRIBED MAY BE SECONDARY TO TRAUMA. NO DEFINITE RIGHT-SIDED HIP LESI ON IS SEEN.
[2017-05-19 12:31] LABS: Glucose,Whole Blood 127 mg/dL (75-99)
[2017-05-19 16:45] LABS: Glucose,Whole Blood 99 mg/dL (75-99)
[2017-05-19] MEDS: TAMSULOSIN 0.4 MG CAP.ER.24H PO SCH (17:43)
[2017-05-19] MEDS: HEPARIN SODIUM,PORCINE 5,000 UNIT/ML 1 ML VIAL SQ SCH (17:44)
[2017-05-19] MEDS: ATORVASTATIN 10 MG TAB PO SCH (20:00)
[2017-05-19 20:46] LABS: Glucose,Whole Blood 120 mg/dL (75-99)
[2017-05-19] MEDS: INSULIN DETEMIR 100 UNIT/ML 10 ML VIAL SQ SCH (20:54)
[2017-05-20] MEDS: HYDROcodone/APAP 5-325MG 1 EACH TAB PO PRN ×4 (00:15→19:49)
[2017-05-20] MEDS: HEPARIN SODIUM,PORCINE 5,000 UNIT/ML 1 ML VIAL SQ SCH ×4 (00:15→23:16)
[2017-05-20] MEDS: DAPTOmycin IN 0.9% NACL 500 MG/10 ML SYRINGE IVP SCH ×2 (00:16→23:13)
[2017-05-20] MEDS: HYDROmorphone 1 MG/ML 1 ML SYRINGE IVP PRN ×3 (02:23→15:04)
[2017-05-20 07:00] LABS: Glucose,Whole Blood 71 mg/dL (75-99)
[2017-05-20] MEDS: METOPROLOL TARTRATE 50 MG TAB PO SCH ×2 (08:03→20:34)
[2017-05-20] MEDS: PANTOPRAZOLE 40 MG TABLET PO SCH (08:03)
[2017-05-20] MEDS: FINASTERIDE 5 MG TAB PO SCH (08:03)
[2017-05-20] MEDS: POLYETHYLENE GLYCOL 3350 17 GM POWD.PACK PO SCH (08:03)
[2017-05-20] MEDS: INSULIN ASPART 100 UNIT/ML 1 ML 10 ML VIAL SQ SCH ×4 (08:03→20:42)
--- NOTE | 2017-05-20 08:39 | P.PN ---
Subjective Progress Note Date: 05/20/17 Principal diagnosis: Bacteremia Patient is an 81-year-old male with a past medical history of bladder obstruction requiring clean intermittent cath, hypertension, dyslipidemia, and diabetes mellitus who presented to the hospital with complaints of right hip pain, hematuria, fever, and chills. In the ER he underwent an extensive evaluation. On arrival he was found to have a fever of 102.7 and was hypertensive to 230/98. Initial laboratory analysis showed a white blood cell count of 14.7, sodium 136, potassium 5.3, when necessary of 45, glucose of 3 and creatinine of 1.5. He also had a plasma lactic acid of 2.9. Urinalysis was grossly bloody and consistent with possible urinary tract infection. He underwent a chest x-ray which was negative and a hip and pelvis x-ray which showed no acute abnormality. He was started on IV fluids, IV antibiotics, and his eliquis was held. He was admitted to the general medical floor for further monitoring and care. Urology was consulted. He could not self cath and therefore urology was consulted. He ultimately went to the OR and had a cystoscopy with placement of Ramesh catheter. He was also found to have fecal occult blood positive stools seen by GI. He had a colonoscopy 5-6 years ago and did not want to proceed with an inpatient colonoscopy at this time. His blood cultures came back positive with MRSA. Infectious disease was consulted. His urine ultimately showed MRSA and strep agalactiae. His antibiotics were broadened to vancomycin. After several days he still did not have clearing of his blood cultures and then antibiotics were transitioned to dapto on 05/15. He also underwent echocardiogram which showed a normal ejection fraction of 55-60% and no signs of endocarditis. His blood cultures continued to be positive and on 05/17 and he underwent a CT of the abdomen and pelvis which showed possible abscess along the right anterior lateral aspect of the distal rectum and right side of the prostate, inflammatory edema in the pelvis, 1.4 cm right hepatic lobe lesion, and chronic bladder wall hypertrophy with cystitis. Infectious disease, urology, and Dr. Madera discussed the case. It was determined that the best approach may be rectal ultrasound and aspiration of the area by interventional radiology. He underwent rectal ultrasound that there was not a definitive area to be drained. He underwent ultrasound of the liver which did not really demonstrate the right hepatic lobe lesion. CAT scan of the abdomen and pelvis was reviewed and was determined that there was a lucency with fracture the right pubic rami, bone scan was recommended. Orthopedics was consulted. Bone scan performed 05/19 and did not demonstrate fracture. He had a bowel movement 05/19. Patient seen and examined at bedside. Had a bowel movement yesterday and had decrease in his groin pain and is feeling much better. Discussed with the patient taking his dose of MiraLAX and see if that is effective prior to taking his when necessary lactulose. Denies any nausea, chest pain, and shortness of breath. Denies any unusual fatigue. Nursing present at bedside and questions answered. Objective - Vital Signs Vital signs: Vital Signs Temp 98.0 F 05/20/17 07:00 Pulse 99 05/20/17 07:00 Resp 18 05/20/17 07:00 BP 154/73 05/20/17 07:00 Pulse Ox 99 05/20/17 07:00 Intake & Output 05/19/17 05/20/17 05/20/17 18:59 06:59 18:59 Output Total 2200 1300 Balance -2200 -1300 Output: Urine 2200 1300 Other: Voiding Method Indwelling Catheter Indwelling Catheter # Bowel Movements 1 - Exam General: non toxic, No distress, appears at stated age Derm: no rashes, no lesions Head: atraumatic, normocephalic, symmetric Eyes: EOMI, no lid lag, anicteric sclera Mouth: no lip lesion, mucus membranes moist Cardiovascular: S1S2 reg, no murmur, positive posterior tibial pulse bilateral, Lungs: Decreased breath sounds bilateral bases, no rhonchi, no rales , no accessory muscle use Abdominal: soft, nontender to palpation, no guarding, no appreciable organomegaly Ext: no gross muscle atrophy, no edema, no contractures Neuro: CN II-XI grossly intact, no focal neuro deficits Psych: Alert, oriented, appropriate affect - Labs CBC & Chem 7: 05/19/17 07:40 05/19/17 07:40 Labs: Abnormal Lab Results - Last 24 Hours (Table) 05/19/17 05/19/17 05/20/17 Range/Units 12:11 20:43 06:56 POC Glucose (mg/dL) 127 H 120 H 71 L (75-99) mg/dL Microbiology - Last 24 Hours (Table) 05/16/17 09:04 Blood Culture - Preliminary Blood No Growth after 72 hours 05/18/17 08:10 Blood Culture - Preliminary Blood No Growth after 24 hours 05/18/17 07:44 Blood Culture - Preliminary Blood No Growth after 24 hours Assessment and Plan Assessment: Persistent MRSA bacteremia due to MRSA and strep UTI, POA, due to to clean intermittent cath - perirectal abscess ruled out: No abscess amenable to aspiration in plevis on rectal ultrasound -Continue with dapto IV -Infectious disease and urology recommendations appreciated -Repeat blood cultures pending, 2/2 cultures negative for 24 hours from 05/18, likely PICC in AM if cultures come back negative for 48 hours. Bladder outlet obstruction -Urology recommendations appreciated -Status post cystoscopy 05/14 -Plan on discharge with Ramesh catheter in place and follow up with urology in 2 weeks -Continue with Proscar and Flomax Diabetes mellitus with hyperglycemia on admission, now hypoglycemic in AM -Continue with sliding scale insulin and Decrease levemir to 12 U nightly -Hemoglobin A1c 7.2 [place], Resolved on CKD III - baseline creatinine of 1.5 - renal dose medications Constipation, resolved -continue bowel regiment. Hypertension, hypertensive urgency on arrival now resolved -Continue metoprolol -Follow blood pressures Paroxysmal atrial fibrillation -Rate controlled -Continue metoprolol -Off eliquis until all procedures completed- hope to resume after PICC line Resolved/chronic: Heme positive stools Hyponatremia Hyperkalemia Elevated lactic acid Hyperglycemia Sepsis Dyslipidemia Coronary artery disease Liver lesion, ruled out DVT prophylaxis: Heparin SC Discussed with: Patient, nursing Anticipated discharge: Sunday or Sunday of next week if blood cultures negative , will need 4 weeks of IV antibiotics Anticipated discharge place: SNF A total of 30 minutes was spent on the care of this complex patient more than 50 % of the time was spent in counseling and care coordination.
--- NOTE | 2017-05-20 10:25 | P.PN ---
Subjective Progress Note Date: 05/20/17 The patient is having no pain. His urine is clear. His vital signs are stable. Objective - Vital Signs Vital signs: Vital Signs Temp 98.0 F 05/20/17 07:00 Pulse 99 05/20/17 07:00 Resp 18 05/20/17 07:00 BP 154/73 05/20/17 07:00 Pulse Ox 99 05/20/17 07:00 Intake & Output 05/19/17 05/20/17 05/20/17 18:59 06:59 18:59 Output Total 2200 1300 Balance -2200 -1300 Output: Urine 2200 1300 Other: Voiding Method Indwelling Catheter Indwelling Catheter Indwelling Catheter # Bowel Movements 1 - Labs CBC & Chem 7: 05/19/17 07:40 05/19/17 07:40 Labs: Abnormal Lab Results - Last 24 Hours (Table) 05/19/17 05/19/17 05/20/17 Range/Units 12:11 20:43 06:56 POC Glucose (mg/dL) 127 H 120 H 71 L (75-99) mg/dL Microbiology - Last 24 Hours (Table) 05/19/17 07:40 Blood Culture - Preliminary Blood No Growth after 24 hours 05/16/17 09:04 Blood Culture - Preliminary Blood No Growth after 72 hours 05/18/17 08:10 Blood Culture - Preliminary Blood No Growth after 24 hours 05/18/17 07:44 Blood Culture - Preliminary Blood No Growth after 24 hours
--- NOTE | 2017-05-20 10:50 | P.CNOR ---
History of Present Illness - HPI Consult date: 05/19/17 Consult reason: fracture (pubic rami) History of present illness: This is an 81 year old male that complains of pain in the right groin. He states the pain has been present for months and gradually increasing in intensity. The patient is unable to recall falling, trauma, or any injury prior to the pain onset. [place] provides some pain relief. He is currently being worked up for possible infectious etiology. Past Medical History Past Medical History: Coronary Artery Disease (CAD), Diabetes Mellitus, Hyperlipidemia, Hypertension, Prostate Disorder Additional Past Medical History / Comment(s): SHINGLES 3 YEARS AGO History of Any Multi-Drug Resistant Organisms: MRSA Year Discovered:: 05/16/17 MDRO Source:: BLOOD,URINE Past Surgical History: No Surgical Hx Reported Additional Past Surgical History / Comment(s): SELENE CATARACTS, COLONOSCOPY/ POLYPECTOMY(BENIGN), orthopedic surgery when he was a child, cystoscopy last year Past Anesthesia/Blood Transfusion Reactions: No Reported Reaction Past Psychological History: No Psychological Hx Reported Additional Psychological History / Comment(s): . 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 No international travel since. No animal exposures. Reformed smoker. No history of significant alcohol or recreational drug use Smoking Status: Former smoker Past Alcohol Use History: None Reported Past Drug Use History: None Reported - Past Family History Father Family Medical History: Cancer Mother Family Medical History: Cancer Additional Family Medical History / Comment(s): BREAST CANCER Medications and Allergies Home Medications Medication Instructions Recorded Confirmed Type Finasteride [Proscar] 5 mg PO DAILY 05/25/16 05/13/17 History Metoprolol Tartrate [Lopressor] 50 mg PO BID #60 tab 05/31/16 05/13/17 Rx Acetaminophen-Codeine 300-30mg 1 tab PO TID PRN 05/13/17 05/13/17 History [Tylenol #3] Apixaban [Eliquis] 5 mg PO BID 05/13/17 05/13/17 History Atorvastatin [Lipitor] 20 mg PO DAILY 05/13/17 05/13/17 History Furosemide [Lasix] 20 mg PO DAILY 05/13/17 05/13/17 History Insulin Degludec [Tresiba 40 unit SQ HS 05/13/17 05/13/17 History Flextouch U-100] amLODIPine BESYLATE [Norvasc] 5 mg PO DAILY 05/13/17 05/13/17 History methylPREDNISolone [Medrol Dose See Taper PO DIRECTED 05/13/17 05/13/17 History Pack] Allergies Allergy/AdvReac Type Severity Reaction Status Date / Time No Known Allergies Allergy Verified 05/25/16 13:00 Physical Examination The patient is a pleasant, white male in no acute distress. He is alert and oriented to person, place and time. He has full ROM of bilateral hips, knees and ankles but pain in the right groin with any movement of the right hip. There is no apparent lower extremity edema or ecchymosis surrounding the area of pain. He has full foot and ankle motion without difficulty or pain. Neurovascular status grossly intact. Results CT of the pelvis reveals a minimally displaced fracture of the superior ramus at the symphysis pubis. No obvious bony erosion in the area of the fracture. Bone scan shows evidence of fracture at the superior ramus. - Labs Labs: Abnormal Lab Results - Last 24 Hours (Table) 05/18/17 05/18/17 05/19/17 Range/Units 16:44 20:44 07:40 WBC 11.3 H (3.8-10.6) k/uL RBC 3.53 L (4.30-5.90) m/uL Hgb 10.2 L (13.0-17.5) gm/dL Hct 33.1 L (39.0-53.0) % MCHC 30.8 L (31.0-37.0) g/dL Sodium (137-145) mmol/L Chloride (98-107) mmol/L Carbon Dioxide (22-30) mmol/L BUN (9-20) mg/dL Creatinine (0.66-1.25) mg/dL POC Glucose (mg/dL) 131 H 198 H (75-99) mg/dL Calcium (8.4-10.2) mg/dL Total Bilirubin (0.2-1.3) mg/dL Total Protein (6.3-8.2) g/dL Albumin (3.5-5.0) g/dL 05/19/17 Range/Units 07:40 WBC (3.8-10.6) k/uL RBC (4.30-5.90) m/uL Hgb (13.0-17.5) gm/dL Hct (39.0-53.0) % MCHC (31.0-37.0) g/dL Sodium 135 L (137-145) mmol/L Chloride 108 H (98-107) mmol/L Carbon Dioxide 19 L (22-30) mmol/L BUN 29 H (9-20) mg/dL Creatinine 1.48 H (0.66-1.25) mg/dL POC Glucose (mg/dL) (75-99) mg/dL Calcium 8.3 L (8.4-10.2) mg/dL Total Bilirubin 0.1 L (0.2-1.3) mg/dL Total Protein 5.6 L (6.3-8.2) g/dL Albumin 2.3 L (3.5-5.0) g/dL Microbiology - Last 24 Hours (Table) 05/16/17 09:41 Blood Culture Gram Stain - Final Blood Blood Culture - Final Methicillin resist S. aureus 05/16/17 09:04 Blood Culture - Preliminary Blood No Growth after 48 hours H & H 05/12/17 05/13/17 05/13/17 Range/Units 22:10 01:01 EST 20:50 Hgb 11.7 L 9.5 L D 9.4 L (13.0-17.5) gm/dL Hct 36.7 L 31.0 L 29.9 L (39.0-53.0) % 05/14/17 05/15/17 05/16/17 Range/Units 07:49 07:46 09:04 Hgb 9.3 L 9.7 L 9.6 L (13.0-17.5) gm/dL Hct 28.9 L 31.4 L 31.2 L (39.0-53.0) % 05/17/17 05/18/17 05/19/17 Range/Units 09:55 07:44 07:40 Hgb 8.8 L 9.9 L 10.2 L (13.0-17.5) gm/dL Hct 28.6 L 31.0 L 33.1 L (39.0-53.0) % Coagulation 05/12/17 05/18/17 Range/Units 22:10 09:52 INR 1.1 1.0 (<1.2) Result Diagrams: 05/19/17 07:40 05/19/17 07:40 Assessment and Plan (1) Pelvis fracture, right Current Visit: Yes Status: Acute Code(s): S32.9XXA - FRACTURE OF UNSP PARTS OF LUMBOSACRAL SPINE AND PELVIS, INIT SNOMED Code(s): 43220547 Plan: The clinical and x-ray findings are discussed with the patient. There is no obvious evidence of infection in the bone. His fractures more consistent with trauma. He is to be weightbearing as tolerated with walker. He is to follow- up in our office in 3-4 weeks for re-x-ray and evaluation.
[2017-05-20 12:13] LABS: Glucose,Whole Blood 145 mg/dL (75-99)
[2017-05-20] MEDS: LACTULOSE 20 GM/30 ML CUP PO PRN (12:23)
[2017-05-20 17:16] LABS: Glucose,Whole Blood 138 mg/dL (75-99)
[2017-05-20] MEDS: TAMSULOSIN 0.4 MG CAP.ER.24H PO SCH (17:32)
[2017-05-20] MEDS: ATORVASTATIN 10 MG TAB PO SCH (20:34)
[2017-05-20 20:50] LABS: Glucose,Whole Blood 143 mg/dL (75-99)
[2017-05-20] MEDS: INSULIN DETEMIR 100 UNIT/ML 10 ML VIAL SQ SCH (21:18)
[2017-05-21] MEDS: HYDROmorphone 1 MG/ML 1 ML SYRINGE IVP PRN (02:06)
[2017-05-21] MEDS: HYDROcodone/APAP 5-325MG 1 EACH TAB PO PRN (04:42)
[2017-05-21 07:09] LABS: Glucose,Whole Blood 78 mg/dL (75-99)
[2017-05-21 08:17] LABS: Calcium 8.1 mg/dL (8.4-10.2); Potassium 4.4 mmol/L (3.5-5.1)
[2017-05-21 08:19] LABS: CH 29.5; CHCM 32.1; HCT 29.4 % (39.0-53.0); HDW 3.16; HGB 9.1 gm/dL (13.0-17.5); Hypochromasia Slight; MCH 28.6 pg (25.0-35.0); MCV 92.4 fL (80.0-100.0); Mean Platelet Volume 6.4; RBC 3.18 m/uL (4.30-5.90); WBC 7.2 k/uL (3.8-10.6)
[2017-05-21 08:30] LABS: Glucose,Whole Blood 111 mg/dL (75-99)
[2017-05-21] MEDS: INSULIN ASPART 100 UNIT/ML 1 ML 10 ML VIAL SQ SCH ×4 (08:54→21:09)
[2017-05-21] MEDS: METOPROLOL TARTRATE 50 MG TAB PO SCH ×2 (09:07→21:10)
[2017-05-21] MEDS: PANTOPRAZOLE 40 MG TABLET PO SCH (09:07)
[2017-05-21] MEDS: HEPARIN SODIUM,PORCINE 5,000 UNIT/ML 1 ML VIAL SQ SCH ×2 (09:07→16:32)
[2017-05-21] MEDS: POLYETHYLENE GLYCOL 3350 17 GM POWD.PACK PO SCH (09:07)
[2017-05-21] MEDS: FINASTERIDE 5 MG TAB PO SCH (09:07)
[2017-05-21] MEDS ORDERED: LIDOCAINE 2% INJ 20 MG/ML (20 ML MDV) ONE (09:18)
--- NOTE | 2017-05-21 09:35 | US ---
EXAMINATION TYPE: US prostate transrectal DATE OF EXAM: 05/18/2017 COMPARISON: CT abdomen and pelvis from yesterday. CLINICAL HISTORY: abscess vs prostate enlargement. Abnormal CT This examination was performed using the transrectal probe. EXAM MEASUREMENTS: Gland Size: 7.3 x 4.6 x 7.5 Volume: 131 ml Predicted PSA: 15.8 Actual PSA (if available):Not available Extremely limited exam, pt in large amount of pain, constipated Limited views of prostate show enlargement, otherwise non-diagnostic exam/ Possible complex collect ion midline/right of prostate= 5.5 x 3.6 x 4.2 cm IMPRESSION: Suboptimal study, enlarged prostate gland is redemonstrated, heterogeneous area posterio r aspect right of midline not typical appearance of abscess, complex nodule would be favored. Phlegmo n or developing infection related to prostatitis is not excluded. Advise clinical correlation and rep eat ultrasound evaluation after medical treatment for infection.
--- NOTE | 2017-05-21 10:28 | IR ---
PICC LINE PLACEMENT: HISTORY: Infection requiring long-term antibiotic therapy PROCEDURE: Ultrasound and fluoroscopic guidance of PICC line placement. COMPLICATIONS: None ANESTHESIA: 1. 1% Lidocaine locally. FINDINGS/TECHNIQUE: The procedure was explained to the patient. The risks, complications, benefits and alternatives were discussed and any questions were answered. Informed consent was obtained. The patient was placed supine on the fluoroscopic table and prepped and draped in the usual sterile [facility] ion. Utilizing a 21 gauge needle and sonographic and fluoroscopic guidance, access in the vein was achieved and there is placement of a 0.018 guidewire. The vein is patent. A 4-F sheath was placed o eliazar the guidewire. The guidewire and dilator were removed and a 4-F. PICC line was placed through th e sheath with the tip at the level of the SVC. The sheath was removed, the catheter was flushed and sutured into position. The patient was stable throughout the procedure and remained stable upon disc harge from the Department of Radiology. The vein puncture was patent under ultrasound. A santos scale image was obtained to document patency of the vein punctured. All elements of the maximal barrier technique were utilized. FLUOROSCOPY TIME: 0.2 minutes, one image submitted IMPRESSION: Successful PICC line placement under ultrasound and fluoroscopic guidance.
[2017-05-21 12:09] LABS: Glucose,Whole Blood 121 mg/dL (75-99)
--- NOTE | 2017-05-21 15:40 | P.PN ---
Subjective Progress Note Date: 05/21/17 Principal diagnosis: patient is seen and examined in follow up for bcteremia and urinary retention Patient is an 81-year-old male with a past medical history of bladder obstruction requiring clean intermittent cath, hypertension, dyslipidemia, and diabetes mellitus who presented to the hospital with complaints of right hip pain, hematuria, fever, and chills. In the ER he underwent an extensive evaluation. On arrival he was found to have a fever of 102.7 and was hypertensive to 230/98. Initial laboratory analysis showed a white blood cell count of 14.7, sodium 136, potassium 5.3, when necessary of 45, glucose of 3 and creatinine of 1.5. He also had a plasma lactic acid of 2.9. Urinalysis was grossly bloody and consistent with possible urinary tract infection. He underwent a chest x-ray which was negative and a hip and pelvis x-ray which showed no acute abnormality. He was started on IV fluids, IV antibiotics, and his eliquis was held. He was admitted to the general medical floor for further monitoring and care. Urology was consulted. He could not self cath and therefore urology was consulted. He ultimately went to the OR and had a cystoscopy with placement of Robertson catheter. He was also found to have fecal occult blood positive stools seen by GI. He had a colonoscopy 5-6 years ago and did not want to proceed with an inpatient colonoscopy at this time. His blood cultures came back positive with MRSA. Infectious disease was consulted. His urine ultimately showed MRSA and strep agalactiae. His antibiotics were broadened to vancomycin. After several days he still did not have clearing of his blood cultures and then antibiotics were transitioned to dapto on 05/15. He also underwent echocardiogram which showed a normal ejection fraction of 55-60% and no signs of endocarditis. His blood cultures continued to be positive and on 05/17 and he underwent a CT of the abdomen and pelvis which showed possible abscess along the right anterior lateral aspect of the distal rectum and right side of the prostate, inflammatory edema in the pelvis, 1.4 cm right hepatic lobe lesion, and chronic bladder wall hypertrophy with cystitis. Infectious disease, urology, and Dr. Madera discussed the case. It was determined that the best approach may be rectal ultrasound and aspiration of the area by interventional radiology. He underwent rectal ultrasound that there was not a definitive area to be drained. He underwent ultrasound of the liver which did not really demonstrate the right hepatic lobe lesion. CAT scan of the abdomen and pelvis was reviewed and was determined that there was a lucency with fracture the right pubic rami, bone scan was recommended. Orthopedics was consulted. Bone scan performed 05/19 and did not demonstrate fracture. He had a bowel movement 05/19. Patient is seen and examined today, He has no new compliant overnight. Patient is awaiting PICC line insertion procedure. blood cultures has been negative and clear for >48 hours . Plan is to continue ABx for another 4 weeks. case discussed with social director, still await finding an accepting facility. Objective - Vital Signs Vital signs: Vital Signs Temp 97.0 F L 05/21/17 07:00 Pulse 110 H 05/21/17 08:25 Resp 16 05/21/17 08:25 BP 128/79 05/21/17 08:25 Pulse Ox 100 05/21/17 07:00 Intake & Output 05/20/17 05/21/17 05/21/17 18:59 06:59 18:59 Intake Total 450 Output Total 1500 1025 Balance -1500 -575 Intake: Oral 450 Output: Urine 1500 1025 Other: Voiding Method Indwelling Catheter Indwelling Catheter # Voids 0 # Bowel Movements 1 - Exam General: NAD, pleasant and conversant Chest good breath sounds bilaterally , no wheezes , normal respiratory effort CVS nl S1 S2, RRR, no murmurs, no peripheral edema Extremities: no tenderness to palpation of legs bilaterally, no clubbing or cyanosis Abd: soft lax, no tenderness to palpation , BS positive Psych alert , oriented to place person and time, - Labs CBC & Chem 7: 05/21/17 07:31 05/21/17 07:31 Labs: Abnormal Lab Results - Last 24 Hours (Table) 05/20/17 05/20/17 05/20/17 Range/Units 12:12 17:10 20:33 RBC (4.30-5.90) m/uL Hgb (13.0-17.5) gm/dL Hct (39.0-53.0) % Sodium (137-145) mmol/L Creatinine (0.66-1.25) mg/dL Glucose (74-99) mg/dL POC Glucose (mg/dL) 145 H 138 H 143 H (75-99) mg/dL Calcium (8.4-10.2) mg/dL 05/21/17 05/21/17 05/21/17 Range/Units 07:31 07:31 08:04 RBC 3.18 L (4.30-5.90) m/uL Hgb 9.1 L (13.0-17.5) gm/dL Hct 29.4 L (39.0-53.0) % Sodium 132 L (137-145) mmol/L Creatinine 1.43 H (0.66-1.25) mg/dL Glucose 108 H (74-99) mg/dL POC Glucose (mg/dL) 111 H (75-99) mg/dL Calcium 8.1 L (8.4-10.2) mg/dL Microbiology - Last 24 Hours (Table) 05/19/17 12:32 Blood Culture - Preliminary Blood No Growth after 24 hours 05/16/17 09:04 Blood Culture - Preliminary Blood No Growth after 96 hours 05/18/17 08:10 Blood Culture - Preliminary Blood No Growth after 48 hours 05/18/17 07:44 Blood Culture - Preliminary Blood No Growth after 48 hours 05/19/17 07:40 Blood Culture - Preliminary Blood No Growth after 24 hours Assessment and Plan (1) Sepsis Narrative/Plan: 2/2 persistent MRSA bacteremia and UTI due to repeated self intermittent cath patient had persistent MRSA bacteremia while on vanco , then was switched to daptomycin which cleared the bactremia currently afebrile plan to insert PICC line, then continue ABx for at least 4 weeks OP follow up with ID other work up was negative, perirectal abscess ruled out: No abscess amenable to aspiration in plevis on rectal ultrasound Echo cardiogram did not show any vegetations Current Visit: Yes Status: Resolved Code(s): A41.9 - SEPSIS, UNSPECIFIED ORGANISM SNOMED Code(s): 41797885 (2) UTI (urinary tract infection) Narrative/Plan: This is most likely 2/2 self cath patient found to have bladder outlet obstruction , robertson cath inserted under cycstoscopy guide on 05/14 patient to be discharged with robertson cath in place , and follow up OP with urology continue flomax and proscar Current Visit: Yes Status: Resolved Code(s): N39.0 - URINARY TRACT INFECTION , SITE NOT SPECIFIED SNOMED Code(s): 65743089 (3) Hematuria Narrative/Plan: 2/2 UTI , now resolved Current Visit: Yes Status: Resolved Code(s): R31.9 - HEMATURIA, UNSPECIFIED SNOMED Code(s): 42646082 (4) CKD (chronic kidney disease) Current Visit: Yes Status: Chronic Code(s): N18.9 - CHRONIC KIDNEY DISEASE, UNSPECIFIED SNOMED Code(s): 020887633 (5) Hyperkalemia Current Visit: Yes Status: Resolved Code(s): E87.5 - HYPERKALEMIA SNOMED Code(s): 71855498 (6) Hyperglycemia Current Visit: Yes Status: Resolved Code(s): R73.9 - HYPERGLYCEMIA, UNSPECIFIED SNOMED Code(s): 63171419 (7) Paroxysmal A-fib Narrative/Plan: will resume eliquis post PICC line procedure rate controlled Current Visit: Yes Status: Chronic Code(s): I48.0 - PAROXYSMAL ATRIAL FIBRILLATION SNOMED Code(s): 811836839 (8) DVT prophylaxis Narrative/Plan: on heparin sc will switch to eliquis for afib once PICC line inserted Current Visit: Yes Status: Acute Code(s): [id number] - SNOMED Code(s): 960432907 (9) BPH (benign prostatic hyperplasia) Narrative/Plan: with urinary bladder outlet obstruction continue with flomax and proscar OP follow up with Urology , keep robertson cath in place upon discharge Current Visit: Yes Status: Chronic Code(s): N40.0 - BENIGN PROSTATIC HYPERPLASIA WITHOUT LOWER URINRY TRACT SYMP SNOMED Code(s): 367043522 (10) Hypertensive urgency Current Visit: Yes Status: Acute Code(s): I16.0 - HYPERTENSIVE URGENCY SNOMED Code(s): 143748907 (11) Anemia Narrative/Plan: stable Current Visit: Yes Status: Chronic Code(s): D64.9 - ANEMIA, UNSPECIFIED SNOMED Code(s): 269306106 Plan: discharge to SNF, pending facility approval once PICC line inserted discontinue IV pain medications, rely on [place], increase dose to 7.5 mg
[2017-05-21] MEDS: ONDANSETRON 4 MG/2 ML VIAL IVP PRN (16:31)
[2017-05-21 17:24] LABS: Glucose,Whole Blood 122 mg/dL (75-99)
[2017-05-21] MEDS: TAMSULOSIN 0.4 MG CAP.ER.24H PO SCH (17:39)
[2017-05-21] MEDS: LACTULOSE 20 GM/30 ML CUP PO PRN (17:39)
[2017-05-21] MEDS: INSULIN DETEMIR 100 UNIT/ML 10 ML VIAL SQ SCH (21:09)
[2017-05-21] MEDS: ATORVASTATIN 10 MG TAB PO SCH (21:10)
[2017-05-21] MEDS: APIXABAN 2.5 MG TABLET PO SCH (21:10)
[2017-05-21 21:12] LABS: Glucose,Whole Blood 150 mg/dL (75-99)
[2017-05-21] MEDS: DAPTOmycin IN 0.9% NACL 500 MG/10 ML SYRINGE IVP SCH (22:07)
[2017-05-21 23:23] VITALS: PULSE 99; RESP 20
[2017-05-22] MEDS: HYDROcodone/APAP 7.5-325MG 1 EACH TAB PO PRN ×2 (03:03→15:08)
[2017-05-22 07:34] LABS: Glucose,Whole Blood 120 mg/dL (75-99)
[2017-05-22 07:38] VITALS: BP 145/77; TEMP 98.4
[2017-05-22] MEDS: INSULIN ASPART 100 UNIT/ML 1 ML 10 ML VIAL SQ SCH ×2 (07:52→12:25)
[2017-05-22] MEDS: FINASTERIDE 5 MG TAB PO SCH (07:55)
[2017-05-22] MEDS: APIXABAN 2.5 MG TABLET PO SCH (07:55)
[2017-05-22] MEDS: POLYETHYLENE GLYCOL 3350 17 GM POWD.PACK PO SCH (07:55)
[2017-05-22] MEDS: METOPROLOL TARTRATE 50 MG TAB PO SCH (07:55)
[2017-05-22] MEDS: PANTOPRAZOLE 40 MG TABLET PO SCH (07:55)
[2017-05-22] MEDS ORDERED: LINEZOLID 600 MG TAB PO SCH (09:00)
[2017-05-22 12:16] LABS: Glucose,Whole Blood 126 mg/dL (75-99)
--- NOTE | 2017-05-22 12:39 | P.DS ---
Providers Date of admission: 05/12/17 23:50 Expected date of discharge: 05/22/17 Attending physician: Yaya Sim MD Consults: 05/13/17 01:23 Consult Physician Routine Consulting Provider: Martin Bridges Consult Reason/Comments: hematuria Do you want consulting provider notified?: Yes 05/14/17 08:16 Consult Physician Routine Consulting Provider: Marlo Mooney Consult Reason/Comments: bacteremia Do you want consulting provider notified?: Yes 05/18/17 15:13 Consult Physician Routine Consulting Provider: Adi Veras Consult Reason/Comments: right pubic rami fracture noted on CT, It is called on Liver US report Do you want consulting provider notified?: Yes Primary care physician: Jose Luis Jones - Discharge Diagnosis(es) (1) Sepsis 2/2 persistent MRSA bacteremia and UTI due to repeated self intermittent cath patient had persistent MRSA bacteremia while on vanco , then was switched to daptomycin which cleared the bactremia, now switched to Linezolid per ID as its more affordable recommendations now to continue for another 2 weeks and follow up with ID currently afebrile OP follow up with ID other work up was negative, perirectal abscess ruled out: No abscess amenable to aspiration in plevis on rectal ultrasound Echo cardiogram did not show any vegetations Current Visit: Yes Status: Resolved (2) UTI (urinary tract infection) This is most likely 2/2 self cath patient found to have bladder outlet obstruction , robertson cath inserted under cycstoscopy guide on 05/14 patient to be discharged with robertson cath in place , and follow up OP with urology continue flomax and proscar Current Visit: Yes Status: Resolved (3) Hematuria Current Visit: Yes Status: Resolved (4) CKD (chronic kidney disease) Current Visit: Yes Status: Chronic (5) Hyperkalemia Current Visit: Yes Status: Resolved (6) Hyperglycemia Current Visit: Yes Status: Resolved (7) Paroxysmal A-fib on eliquis Current Visit: Yes Status: Chronic (8) DVT prophylaxis Current Visit: Yes Status: Acute (9) BPH (benign prostatic hyperplasia) with urinary bladder outlet obstruction continue with flomax and proscar OP follow up with Urology , keep robertson cath in place upon discharge Current Visit: Yes Status: Chronic (10) Hypertensive urgency Current Visit: Yes Status: Acute (11) Anemia stable patient denies any blood bowel movement at this time Current Visit: Yes Status: Chronic Hospital Course: Patient is an 81-year-old male with a past medical history of bladder obstruction requiring clean intermittent cath, hypertension, dyslipidemia, and diabetes mellitus who presented to the hospital with complaints of right hip pain, hematuria, fever, and chills. In the ER he underwent an extensive evaluation. On arrival he was found to have a fever of 102.7 and was hypertensive to 230/98. Initial laboratory analysis showed a white blood cell count of 14.7, sodium 136, potassium 5.3, when necessary of 45, glucose of 3 and creatinine of 1.5. He also had a plasma lactic acid of 2.9. Urinalysis was grossly bloody and consistent with possible urinary tract infection. He underwent a chest x-ray which was negative and a hip and pelvis x-ray which showed no acute abnormality. He was started on IV fluids, IV antibiotics, and his eliquis was held. He was admitted to the general medical floor for further monitoring and care. Urology was consulted. He could not self cath and therefore urology was consulted. He ultimately went to the OR and had a cystoscopy with placement of Robertson catheter. He was also found to have fecal occult blood positive stools seen by GI. He had a colonoscopy 5-6 years ago and did not want to proceed with an inpatient colonoscopy at this time. His blood cultures came back positive with MRSA. Infectious disease was consulted. His urine ultimately showed MRSA and strep agalactiae. His antibiotics were broadened to vancomycin. After several days he still did not have clearing of his blood cultures and then antibiotics were transitioned to dapto on 05/15. He also underwent echocardiogram which showed a normal ejection fraction of 55-60% and no signs of endocarditis. His blood cultures continued to be positive and on 05/17 and he underwent a CT of the abdomen and pelvis which showed possible abscess along the right anterior lateral aspect of the distal rectum and right side of the prostate, inflammatory edema in the pelvis, 1.4 cm right hepatic lobe lesion, and chronic bladder wall hypertrophy with cystitis. Infectious disease, urology, and Dr. Madera discussed the case. It was determined that the best approach may be rectal ultrasound and aspiration of the area by interventional radiology. He underwent rectal ultrasound that there was not a definitive area to be drained. He underwent ultrasound of the liver which did not really demonstrate the right hepatic lobe lesion. CAT scan of the abdomen and pelvis was reviewed and was determined that there was a lucency with fracture the right pubic rami, bone scan was recommended. Orthopedics was consulted recommending OP follow up for pubic rami fracture. Bone scan performed 05/19 and did not demonstrate infection. Patient has had a PICC line inserted for alf Antibiotic use for MRSA bacteremia,. initial plan was to be on daptomycin for 4 weeks post discharge, however that was switched to Linezolid per ID which is more affordable , and new recommendations from ID is to continue for 2 weeks and follow up. Pertinent Studies: Renal US, showed thickened bladder wall suggesting outlet obstruction , no acute renal abdnormalities 2D echocardiogram shows LVEF 55-60% , no evidence of valvular vegetations CT abd pelvis suggested: 1- hepatic lesion, this was ruled out with a dedicated liver US that only showed cholelithiasis 2- perirectal/ prostate abscess or collection, this was ruled out with a transrectal US that showed no abscess but recommending treatment for infection and repeating US to follow up on heterogenous area in the posterior aspect of the prostate suggestive of infection Bone scan suggested area of increased activity related to trauma in the pelvis but no clear evidence of infection Procedures: PICC line insertion , follow up with ID dr. mooney for removal , please keep in case linezolid therapy fails Patient Condition at Discharge: Stable Plan - Discharge Summary New Discharge Prescriptions: New Linezolid [Zyvox] 600 mg PO Q12H #26 tab Apixaban [Eliquis] 2.5 mg PO BID tablet HYDROcodone/APAP 7.5-325MG [Blodgett 7.5-325] 1 each PO Q4H PRN tab PRN Reason: MODERATE TO SEVERE Pain Insulin Aspart [NovoLOG (formulary)] 0 unit SQ ACHS vial Insulin Detemir [Levemir] 12 unit SQ HS syr Pantoprazole [Protonix] 40 mg PO AC-BRKFST tablet. Polyethylene Glycol 3350 [Miralax] 17 gm PO DAILY powd.pack Tamsulosin [Flomax] 0.4 mg PO PC-SUPPER cap.er.24h Continue Finasteride [Proscar] 5 mg PO DAILY Metoprolol Tartrate [Lopressor] 50 mg PO BID #60 tab Atorvastatin [Lipitor] 20 mg PO DAILY amLODIPine BESYLATE [Norvasc] 5 mg PO DAILY Furosemide [Lasix] 20 mg PO DAILY Discontinued Insulin Degludec [Tresiba Flextouch U-100] 40 unit SQ HS Apixaban [Eliquis] 5 mg PO BID Acetaminophen-Codeine 300-30mg [Tylenol #3] 1 tab PO TID PRN PRN Reason: Pain methylPREDNISolone [Medrol Dose Pack] See Taper PO DIRECTED Discharge Medication List Finasteride [Proscar] 5 mg PO DAILY 05/25/16 [History] Metoprolol Tartrate [Lopressor] 50 mg PO BID #60 tab 05/31/16 [Rx] Atorvastatin [Lipitor] 20 mg PO DAILY 05/13/17 [History] Furosemide [Lasix] 20 mg PO DAILY 05/13/17 [History] amLODIPine BESYLATE [Norvasc] 5 mg PO DAILY 05/13/17 [History] Apixaban [Eliquis] 2.5 mg PO BID tablet 05/22/17 [Rx] HYDROcodone/APAP 7.5-325MG [Blodgett 7.5-325] 1 each PO Q4H PRN tab 05/22/17 [Rx] Insulin Aspart [NovoLOG (formulary)] 0 unit SQ ACHS vial 05/22/17 [Rx] Insulin Detemir [Levemir] 12 unit SQ HS syr 05/22/17 [Rx] Linezolid [Zyvox] 600 mg PO Q12H #26 tab 05/22/17 [Rx] Pantoprazole [Protonix] 40 mg PO AC-BRKFST tablet. 05/22/17 [Rx] Polyethylene Glycol 3350 [Miralax] 17 gm PO DAILY powd.pack 05/22/17 [Rx] Tamsulosin [Flomax] 0.4 mg PO PC-SUPPER cap.er.24h 05/22/17 [Rx] Follow up Appointment(s)/Referral(s): Martin Bridges MD [STAFF PHYSICIAN] - 2 Weeks Mralo Mooney MD [STAFF PHYSICIAN] - 2 Weeks Adi Veras MD [STAFF PHYSICIAN] - 3 Weeks Jose Luis Jones MD [Primary Care Provider] - 1-2 days Ambulatory/Diagnostic Orders: Basic Metabolic Panel [LAB.AMB] Location: Determined By Patient Complete Blood Count w/diff [LAB.AMB] Location: Determined By Patient Miscellaneous Lab Order [LAB.AMB] Location: Determined By Patient Patient Instructions/Handouts: Urinary Tract Infection in Men (DC), Type 2 Diabetes in Adults (DC), MRSA (Methicillin-Resistant Staphylococcus Aureus) (GEN ), Bacteremia (GEN) Activity/Diet/Wound Care/Special Instructions: Keep PICC. Dr. Mooney will remove in the office. Robertson to remain in place until follow up with Dr Bridges (inserted on 05/14/17 for retention) Right lower extremity weight bearing as tolerated with walker MRSA isolation (urine and blood) Carbohydrate consistent diet Discharge Disposition: TRANSFER TO SNF/ECF
[2017-05-22] MEDS: ONDANSETRON 4 MG/2 ML VIAL IVP PRN (15:08)
--- NOTE | 2017-05-22 20:02 | P.PN ---
Progress Note - Text Progress Note Date: 05/22/17 Patient was seen this morning. He had no physical complaints but expressed frustration and depression. He was afebrile with stable vital signs. Urine was clear per Ramesh. Patient to be discharged home with Ramesh, on IV antibiotics, and follow up with me as an out-patient.
== END 2017-05-22 15:17 | DRG 698 ==
LOC: EC 22:06 → 4MS4W 23:50
PROVIDERS: ADMIT Internal Medicine; ATTEND Internal Medicine
PROC: 0T7D8ZZ Dilation of Urethra, Via Natural or Artificial Opening Endoscopic (ICD-10-PCS; principal; 2017-05-14 12:20)
PROC: B54NZZA Ultrasonography of Left Upper Extremity Veins, Guidance (ICD-10-PCS; 2017-05-21)
PROC: 02HV33Z Insertion of Infusion Device into Superior Vena Cava, Percutaneous Approach (ICD-10-PCS; 2017-05-21 09:15)
PROC: B518ZZA Fluoroscopy of Superior Vena Cava, Guidance (ICD-10-PCS; 2017-05-21 09:15)
DX: T83.511A Infection and inflammatory reaction due to indwelling urethral catheter, initial encounter (principal); A41.02 Sepsis due to Methicillin resistant Staphylococcus aureus; N17.9 Acute kidney failure, unspecified; E87.2 Acidosis; S32.591A Other specified fracture of right pubis, initial encounter for closed fracture; E11.22 Type 2 diabetes mellitus with diabetic chronic kidney disease; D62 Acute posthemorrhagic anemia; E11.649 Type 2 diabetes mellitus with hypoglycemia without coma; K62.5 Hemorrhage of anus and rectum; E87.1 Hypo-osmolality and hyponatremia; K61.1 Rectal abscess; E11.65 Type 2 diabetes mellitus with hyperglycemia; N39.0 Urinary tract infection, site not specified; I12.9 Hypertensive chronic kidney disease with stage 1 through stage 4 chronic kidney disease, or unspecified chronic kidney disease; N18.3 Chronic kidney disease, stage 3 (moderate); E87.5 Hyperkalemia; M25.551 Pain in right hip; I16.0 Hypertensive urgency; I48.0 Paroxysmal atrial fibrillation; I25.10 Atherosclerotic heart disease of native coronary artery without angina pectoris; E78.5 Hyperlipidemia, unspecified; N40.1 Benign prostatic hyperplasia with lower urinary tract symptoms; N32.0 Bladder-neck obstruction; N35.9 Urethral stricture, unspecified; I48.2 Chronic atrial fibrillation; R31.0 Gross hematuria; F32.9 Major depressive disorder, single episode, unspecified; G89.29 Other chronic pain; K59.00 Constipation, unspecified; K76.9 Liver disease, unspecified; N32.89 Other specified disorders of bladder; N36.8 Other specified disorders of urethra; Z79.2 Long term (current) use of antibiotics; Z79.4 Long term (current) use of insulin; Z79.01 Long term (current) use of anticoagulants; Z79.899 Other long term (current) drug therapy; Z80.3 Family history of malignant neoplasm of breast; Z87.891 Personal history of nicotine dependence; Z98.41 Cataract extraction status, right eye; Z98.42 Cataract extraction status, left eye; Z86.19 Personal history of other infectious and parasitic diseases
CPT/HCPCS: 36415; 36569; 51798; 71020; 73502; 74176; 76705; 76770; 76872; 76937; 77001; 78315; 80048; 80053; 80202; 81001; 82009; 82272; 83036; 83605; 83735; 85025; 85027; 85610; 85652; 85730; 86140; 87040; 87077; 87086; 87186; 87502; 93005; 93306; 94760; 96361; 96374; 96375; 99285

== ENCOUNTER → 2017-06-23 | Outpatient (CLI) | payer MEDICARE ==
--- NOTE | 2017-06-25 07:13 | PE ---
EXAMINATION TYPE: PET CT fusion skull to thigh DATE OF EXAM: 06/23/2017 COMPARISON: CT abdomen and pelvis May 17, 2017 HISTORY: Prostate cancer initial staging study after recent biopsy. TECHNIQUE: Following the intravenous administration of 13.56 mCi of F-18 FDG, whole body images are performed from the skull base to the midthigh. Images are reviewed on the computer in the coronal, a xial, and sagittal planes. Reconstructed rotating images are created on independent workstation and reviewed on the computer. A NONCONTRAST CT is performed in conjunction with the PET scan. SCAN: Initial Scan FINDINGS: SKULL BASE AND NECK: No suspicious hypermetabolic metabolic uptake is seen. CHEST, MEDIASTINUM, AND HILAR REGION: No suspicious hypermetabolic uptake is identified. ABDOMEN AND PELVIS: Corresponding to recent CT there is 1.5 cm round hypodense lesion anterior aspect right hepatic lobe on axial image 133 with increased hypermetabolic uptake, max SUV is 6.28. Remainder of abdomen shows no suspicious hypermetabolic uptake. OSSEOUS STRUCTURES: There is destructive osseous lesion involving the right inferior pelvic ramus wit h indistinct margins from prostate gland thought to reflect contiguous spread, area of abnormal hyper metabolic uptake measures roughly 4.4 x 3.8 cm anterolateral right prostatic apex. Primary prostate l esion appears to invade right lateral wall of rectum. Remainder of osseous structures show no suspicious hypermetabolic uptake. OTHER CT: There is redemonstration of cardiomegaly with now fairly moderate bilateral pleural effusio ns increased in size from prior study, correlate for active CHF exacerbation. Three-vessel severe coronary artery calcification is seen which is noted marker for coronary artery d isease. Main pulmonary artery is dilated at 3.3 cm on axial image 91, CT findings consistent with underlying pulmonary artery hypertension. There is some asymmetric cortical thinning in left kidney redemonstrated. There is small size fat containing umbilical hernia. There is Ramesh catheter in bladder which is poorly distended and thus suboptimally evaluated. Bladder wall is concentrically thickened. Asymmetric right-sided prostatic and perirectal soft tissue is seen with some hypermetabolic uptake l ess prominent than the anterior-inferior aspect of prostate extending into right inferior iliac bone. There is multilevel spurring in the spine. There is facet arthropathy lower lumbar levels. There is m ultilevel vacuum disc phenomenon and disc space narrowing in mid to lower lumbar spine. There is moderate calcified plaque in aorta extending into branch vessels. There is anterior skin wall thickening redemonstrated. There is mild subcutaneous edema along the thi gh muscles bilaterally again seen. 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 Metastatic lesion to liver is noted.
== END | disposition home or self-care (01) ==
LOC: RADPETMAIN 14:24
PROVIDERS: ATTEND Internal Medicine Hematology & Oncology
DX: C78.7 Secondary malignant neoplasm of liver and intrahepatic bile duct (principal); C61 Malignant neoplasm of prostate
CPT/HCPCS: 78815; A9552

== ENCOUNTER 2017-07-01 23:36 | Inpatient (IN) | payer MEDICARE ==
[2017-07-02] MEDS ORDERED: ONDANSETRON 4 MG/2 ML VIAL IVP STA (00:13)
--- NOTE | 2017-07-02 00:44 | XR ---
EXAM: XR Chest, 1 View CLINICAL HISTORY: Reason: vomiting TECHNIQUE: Frontal view of the chest. COMPARISON: 06/10/17 FINDINGS: Lungs: Stable prominent pulmonary interstitial markings seen diffusely and bilaterally. Pleural space: Unremarkable. No pneumothorax. Heart: Mild cardiomegaly. Mediastinum: Unremarkable. Bones/joints: Unremarkable. IMPRESSION: No acute findings.
[2017-07-02 01:01] LABS: Basophils % (A) 0 %; Eosinophils % (A) 0 %; Hypochromasia Moderate; Lymphocytes # (A) 0.6 k/uL (1.0-4.8); Lymphocytes % (A) 4 %; MCH 27.1 pg (25.0-35.0); MCV 87.5 fL (80.0-100.0); Mean Platelet Volume 6.8; Monocytes # (A) 0.5 k/uL (0-1.0); Monocytes % (A) 4 %; Neutrophils # (A) 11.5 k/uL (1.3-7.7); Neutrophils % (A) 91 %; Platelet Count 196 k/uL (150-450); Poikilocytosis Slight; RBC 2.63 m/uL (4.30-5.90); RDW 14.5 % (11.5-15.5); WBC 12.7 k/uL (3.8-10.6)
[2017-07-02 01:06] LABS: Appearance,Urine Turbid (Clear); Bacteria,Urine Few /hpf; Bilirubin,Urine Negative (Negative); Blood,Urine Large (Negative); Color,Urine Yellow; Glucose,Urine (UA) Negative (Negative); HGB 7.1 gm/dL (13.0-17.5); Ketones,Urine Negative (Negative); Leukocyte Esterase,Urine Large (Negative); Mucus,Urine Few /hpf; Nitrite,Urine Negative (Negative); Protein,Urine 2+ (Negative); RBC,Urine 7 /hpf (0-5); Specific Gravity,Urine 1.015 (1.001-1.035); Squamous Epithelial Cell,Urine 2 /hpf (0-4); Urobilinogen,Urine <2.0 mg/dL (<2.0); WBC,Urine 126 /hpf (0-5)
[2017-07-02 01:14] LABS: Albumin 2.6 g/dL (3.5-5.0); Calcium 8.3 mg/dL (8.4-10.2); Potassium 4.6 mmol/L (3.5-5.1); Total Bilirubin 0.9 mg/dL (0.2-1.3); Total Protein 5.8 g/dL (6.3-8.2)
[2017-07-02] MEDS ORDERED: LEVOFLOXACIN 750 MG TAB PO STA (02:29)
--- NOTE | 2017-07-02 03:40 | ED ---
Fever HPI - General Chief Complaint: Fever Stated Complaint: Fever Time Seen by Provider: 07/01/17 23:40 Source: patient Mode of arrival: EMS Limitations: altered mental status (Poor historian) - History of Present Illness Initial Comments: Patient is a 81-year-old man in from long term to be evaluated for fever and "not feeling well." Patient states that the symptoms basically have been going on all day. He denies any focal pain or dyspnea. He is not able to characterize the symptoms well. He was having a fever at the long-term care facility. Complaint: fever Onset/Timin -: days(s) Temperature Source: oral Associated Symptoms: chills Treatments Prior to Arrival: none - Related Data Home Medications Medication Instructions Recorded Confirmed Atorvastatin [Lipitor] 20 mg PO HS 05/13/17 07/02/17 Furosemide [Lasix] 20 mg PO BID 05/13/17 07/02/17 amLODIPine BESYLATE [Norvasc] 5 mg PO DAILY 05/13/17 07/02/17 Omeprazole 20 mg PO DAILY 07/02/17 07/02/17 Oseltamivir Phosphate [Tamiflu] 30 mg PO DAILY 07/02/17 07/02/17 Previous Rx's Medication Instructions Recorded Metoprolol Tartrate [Lopressor] 50 mg PO BID #60 tab 05/31/16 Insulin Aspart [NovoLOG 0 unit SQ ACHS vial 05/22/17 (formulary)] Polyethylene Glycol 3350 [Miralax] 17 gm PO DAILY powd.pack 05/22/17 Docusate [Colace] 100 mg PO BID cap 06/12/17 HYDROcodone/APAP 7.5-325MG [Butler 1 tab PO Q8HR PRN #30 tab 06/12/17 7.5-325] Melatonin 3 mg PO HS PRN tablet 06/12/17 Allergies Allergy/AdvReac Type Severity Reaction Status Date / Time No Known Allergies Allergy Verified 06/04/17 14:48 Review of Systems ROS Statement: Those systems with pertinent positive or pertinent negative responses have been documented in the HPI. ROS Other: All systems not noted in ROS Statement are negative. Limitations: ROS unobtainable due to patients medical condition (Poor historian) Constitutional: Reports: fever Respiratory: Denies: cough, dyspnea Cardiovascular: Denies: chest pain Gastrointestinal: Denies: abdominal pain, vomiting, diarrhea Genitourinary: Reports: other (Chronic Ramesh catheter) Musculoskeletal: Denies: back pain Skin: Denies: rash Neurological: Denies: headache Past Medical History Past Medical History: Coronary Artery Disease (CAD), Diabetes Mellitus, Hyperlipidemia, Hypertension, Prostate Disorder Additional Past Medical History / Comment(s): SHINGLES 3 YEARS AGO History of Any Multi-Drug Resistant Organisms: MRSA Date of last positivie culture/infection: 05/16/17 MDRO Source:: BLOOD,URINE Past Surgical History: No Surgical Hx Reported Additional Past Surgical History / Comment(s): SELENE CATARACTS, COLONOSCOPY/ POLYPECTOMY(BENIGN), orthopedic surgery when he was a child, cystoscopy last year Past Anesthesia/Blood Transfusion Reactions: No Reported Reaction Past Psychological History: No Psychological Hx Reported Smoking Status: Former smoker Past Alcohol Use History: None Reported Past Drug Use History: None Reported - Past Family History Father Family Medical History: Cancer Mother Family Medical History: Cancer Additional Family Medical History / Comment(s): BREAST CANCER General Exam Limitations: no limitations General appearance: alert, in no apparent distress, obese Head exam: Present: atraumatic, normocephalic Eye exam: Present: normal appearance. Absent: scleral icterus, conjunctival injection ENT exam: Present: mucous membranes dry Neck exam: Present: full ROM. Absent: meningismus Respiratory exam: Present: normal lung sounds bilaterally, rales (Bilateral bases). Absent: respiratory distress, wheezes, rhonchi, stridor Cardiovascular Exam: Present: normal rhythm, tachycardia, normal heart sounds. Absent: systolic murmur, diastolic murmur, rubs, gallop GI/Abdominal exam: Present: soft. Absent: distended, tenderness, guarding, rebound Rectal exam: Present: normal inspection, prostate enlargement (Nodular prostate) . Absent: mass Extremities exam: Present: normal inspection, normal capillary refill. Absent: pedal edema, calf tenderness Back exam: Absent: CVA tenderness (R), CVA tenderness (L) Skin exam: Present: warm, dry, intact, normal color. Absent: rash Course Vital Signs 07/02/17 07/02/17 07/02/17 00:03 01:05 01:22 Temperature 101.3 F H 98.9 F Pulse Rate 104 H 111 H Pulse Rate [ Pulse Oximetery ] Respiratory 18 18 18 Rate Blood Pressure 110/53 96/53 O2 Sat by Pulse 96 98 Oximetry 07/02/17 07/02/17 07/02/17 02:46 04:24 04:30 Temperature 98.4 F 98.2 F Pulse Rate 85 92 Pulse Rate [ 87 Pulse Oximetery ] Respiratory 18 20 21 Rate Blood Pressure 99/53 119/58 O2 Sat by Pulse 97 99 Oximetry - Reevaluation(s) Reevaluation #1: 07/02/17 03:41 Repeat EKG after fever results shows what appears to be normal sinus rhythm with a rate of approximately 91 bpm. Intervals are normal, axis normal. There are lateral T flattening is. Medical Decision Making - Lab Data Result diagrams: 07/02/17 00:51 07/02/17 00:51 Lab Results 07/02/17 07/02/17 07/02/17 Range/Units 00:51 00:51 00:51 WBC 12.7 H (3.8-10.6) k/uL RBC 2.63 L (4.30-5.90) m/uL Hgb 7.1 L D (13.0-17.5) gm/dL Hct 23.0 L (39.0-53.0) % MCV 87.5 (80.0-100.0) fL MCH 27.1 (25.0-35.0) pg MCHC 31.0 (31.0-37.0) g/dL RDW 14.5 (11.5-15.5) % Plt Count 196 (150-450) k/uL Neutrophils % 91 % Lymphocytes % 4 % Monocytes % 4 % Eosinophils % 0 % Basophils % 0 % Neutrophils # 11.5 H (1.3-7.7) k/uL Lymphocytes # 0.6 L (1.0-4.8) k/uL Monocytes # 0.5 (0-1.0) k/uL Eosinophils # 0.0 (0-0.7) k/uL Basophils # 0.0 (0-0.2) k/uL Hypochromasia Moderate Poikilocytosis Slight Sodium 132 L (137-145) mmol/L Potassium 4.6 (3.5-5.1) mmol/L Chloride 99 (98-107) mmol/L Carbon Dioxide 21 L (22-30) mmol/L Anion Gap 12 mmol/L BUN 27 H (9-20) mg/dL Creatinine 2.00 H (0.66-1.25) mg/dL Est GFR (MDRD) Af Amer 39 (>60 ml/min/1.73 sqM) Est GFR (MDRD) Non-Af 32 (>60 ml/min/1.73 sqM) Glucose 210 H (74-99) mg/dL Plasma Lactic Acid Lorenzo (0.7-2.0) mmol/L Calcium 8.3 L (8.4-10.2) mg/dL Total Bilirubin 0.9 (0.2-1.3) mg/dL AST 11 L (17-59) U/L ALT 29 (21-72) U/L Alkaline Phosphatase 72 (38-126) U/L Total Protein 5.8 L (6.3-8.2) g/dL Albumin 2.6 L (3.5-5.0) g/dL Urine Color Urine Appearance (Clear) Urine pH (5.0-8.0) Ur Specific [place] (1.001-1.035) Urine Protein (Negative) Urine Glucose (UA) (Negative) Urine Ketones (Negative) Urine Blood (Negative) Urine Nitrite (Negative) Urine Bilirubin (Negative) Urine Urobilinogen (<2.0) mg/dL Ur Leukocyte Esterase (Negative) Urine RBC (0-5) /hpf Urine WBC (0-5) /hpf Urine WBC Clumps (None) /hpf Ur Squamous Epith Cells (0-4) /hpf Urine Bacteria (None) /hpf Urine Mucus (None) /hpf Influenza Type A RNA Not Detected (Not Detectd) Influenza Type B (PCR) Not Detected (Not Detectd) 07/02/17 07/02/17 Range/Units 00:51 00:51 WBC (3.8-10.6) k/uL RBC (4.30-5.90) m/uL Hgb (13.0-17.5) gm/dL Hct (39.0-53.0) % MCV (80.0-100.0) fL MCH (25.0-35.0) pg MCHC (31.0-37.0) g/dL RDW (11.5-15.5) % Plt Count (150-450) k/uL Neutrophils % % Lymphocytes % % Monocytes % % Eosinophils % % Basophils % % Neutrophils # (1.3-7.7) k/uL Lymphocytes # (1.0-4.8) k/uL Monocytes # (0-1.0) k/uL Eosinophils # (0-0.7) k/uL Basophils # (0-0.2) k/uL Hypochromasia Poikilocytosis Sodium (137-145) mmol/L Potassium (3.5-5.1) mmol/L Chloride (98-107) mmol/L Carbon Dioxide (22-30) mmol/L Anion Gap mmol/L BUN (9-20) mg/dL Creatinine (0.66-1.25) mg/dL Est GFR (MDRD) Af Amer (>60 ml/min/1.73 sqM) Est GFR (MDRD) Non-Af (>60 ml/min/1.73 sqM) Glucose (74-99) mg/dL Plasma Lactic Acid Lorenzo 1.1 (0.7-2.0) mmol/L Calcium (8.4-10.2) mg/dL Total Bilirubin (0.2-1.3) mg/dL AST (17-59) U/L ALT (21-72) U/L Alkaline Phosphatase (38-126) U/L Total Protein (6.3-8.2) g/dL Albumin (3.5-5.0) g/dL Urine Color Yellow Urine Appearance Turbid (Clear) Urine pH 6.0 (5.0-8.0) Ur Specific [place] 1.015 (1.001-1.035) Urine Protein 2+ H (Negative) Urine Glucose (UA) Negative (Negative) Urine Ketones Negative (Negative) Urine Blood Large H (Negative) Urine Nitrite Negative (Negative) Urine Bilirubin Negative (Negative) Urine Urobilinogen <2.0 (<2.0) mg/dL Ur Leukocyte Esterase Large H (Negative) Urine RBC 7 H (0-5) /hpf Urine WBC 126 H (0-5) /hpf Urine WBC Clumps Many H (None) /hpf Ur Squamous Epith Cells 2 (0-4) /hpf Urine Bacteria Few H (None) /hpf Urine Mucus Few H (None) /hpf Influenza Type A RNA (Not Detectd) Influenza Type B (PCR) (Not Detectd) - EKG Data -: EKG Interpreted by Nm EKG shows normal: axis, intervals (Normal), QRS complexes (Normal) Rate: tachycardia (Rate approximately 158) Interpretation: nonspecific ST-T wave changes, other (Atrial fibrillation) Disposition Clinical Impression: Prostate cancer, Fever, Sepsis, Anemia Narrative: Possible urinary tract infection versus colonized Ramesh catheter Disposition: ADMITTED IP TO THIS HOSP Condition: Poor
[2017-07-02] MEDS: SODIUM CHLORIDE 0.9% 1,000 ML IV SCH ×3 (03:52→22:45)
[2017-07-02 07:37] LABS: Glucose,Whole Blood 249 mg/dL (75-99)
[2017-07-02] MEDS: INSULIN ASPART 100 UNIT/ML 1 ML 10 ML VIAL SQ SCH ×4 (08:04→20:46)
[2017-07-02] MEDS ORDERED: DOCUSATE 100 MG CAP PO PRN (10:14)
[2017-07-02] MEDS ORDERED: POLYETHYLENE GLYCOL 3350 17 GM POWD.PACK PO PRN (10:14)
[2017-07-02] MEDS ORDERED: cefTRIAXone IN SWFI 1,000 MG/10 ML SYRINGE IVP SCH (12:00)
[2017-07-02] MEDS ORDERED: HYDROcodone/APAP 7.5-325MG 1 EACH TAB PO PRN (12:09)
[2017-07-02] MEDS ORDERED: INSULIN ASPART 100 UNIT/ML 1 ML 10 ML VIAL SQ SCH (12:30)
[2017-07-02] MEDS: PIPERACILLIN-TAZOBACTAM 3.375 GM in DEXTROSE/WATER 1 50ML.BAG IVPB SCH (12:30)
[2017-07-02 12:33] LABS: Glucose,Whole Blood 203 mg/dL (75-99)
--- NOTE | 2017-07-02 12:51 | P.HPIM ---
History of Present Illness 81-year-old gentleman came in from [facility] for with compensative not feeling well and apparently confusion. Patient has a Ramesh catheter that was placed during his last hospitalization patient appears to have benign prostatic hypertrophy Port-A-Cath was placed by urology and the patient is found to have urinary tract infection and patient will be started on Zosyn to cover Pseudomonas, anaerobes UTI organisms including enterococcus patient was started on IV fluids and patient is feeling little bit better today patient has poor renal function patient is a PSA of chronic kidney disease anyways we'll start him on IV fluids and see if his kidney function will improve patient is hyponatremic as well patient does have pale ischemia intravascularly depletion competent. Patient had high-grade fever or other source for infection were not appreciated patient chest x-ray did not show any pneumonic process. Review of Systems REVIEW OF SYSTEMS: CONSTITUTIONAL: As mentioned in HPI HEENT: No recent visual problems or hearing problems. Denied any sore throat. CARDIOVASCULAR: No chest pain, orthopnea, PND, no palpitations, no syncope. PULMONARY: No shortness of breath, no cough, no hemoptysis. GASTROINTESTINAL: No diarrhea, no nausea, no vomiting, no abdominal pain. Normoactive bowel sounds. NEUROLOGICAL: No headaches, no weakness, no numbness. HEMATOLOGICAL: Denies any bleeding or petechiae. GENITOURINARY: Denies any burning micturition, frequency, or urgency. MUSCULOSKELETAL/RHEUMATOLOGICAL: Denies any joint pain, swelling, or any muscle pain. ENDOCRINE: Denies any polyuria or polydipsia. The rest of the 14-point review of systems is negative. Past Medical History Past Medical History: Coronary Artery Disease (CAD), Diabetes Mellitus, Hyperlipidemia, Hypertension, Prostate Disorder Additional Past Medical History / Comment(s): SHINGLES 3 YEARS AGO History of Any Multi-Drug Resistant Organisms: MRSA Date of last positivie culture/infection: 05/16/17 MDRO Source:: BLOOD,URINE Past Surgical History: No Surgical Hx Reported Additional Past Surgical History / Comment(s): SELENE CATARACTS, COLONOSCOPY/ POLYPECTOMY(BENIGN), orthopedic surgery when he was a child, cystoscopy last year Past Anesthesia/Blood Transfusion Reactions: No Reported Reaction Past Psychological History: No Psychological Hx Reported Smoking Status: Former smoker Past Alcohol Use History: None Reported Past Drug Use History: None Reported - Past Family History Father Family Medical History: Cancer Mother Family Medical History: Cancer Additional Family Medical History / Comment(s): BREAST CANCER Medications and Allergies Home Medications Medication Instructions Recorded Confirmed Type Metoprolol Tartrate [Lopressor] 50 mg PO BID #60 tab 05/31/16 07/02/17 Rx Atorvastatin [Lipitor] 20 mg PO HS 05/13/17 07/02/17 History Furosemide [Lasix] 20 mg PO BID 05/13/17 07/02/17 History amLODIPine BESYLATE [Norvasc] 5 mg PO DAILY 05/13/17 07/02/17 History Polyethylene Glycol 3350 [Miralax] 17 gm PO DAILY powd.pack 05/22/17 07/02/17 Rx Docusate [Colace] 100 mg PO BID cap 06/12/17 07/02/17 Rx HYDROcodone/APAP 7.5-325MG [[place] 1 tab PO Q8HR PRN #30 tab 06/12/17 07/02/17 Rx 7.5-325] Melatonin 3 mg PO HS PRN tablet 06/12/17 07/02/17 Rx Insulin Aspart [NovoLOG See Protocol SQ ACHS 07/02/17 07/02/17 History (formulary)] Insulin Degludec [Tresiba 07/02/17 History Flextouch U-100] Omeprazole 20 mg PO DAILY 07/02/17 07/02/17 History Oseltamivir Phosphate [Tamiflu] 30 mg PO DAILY 07/02/17 07/02/17 History Allergies Allergy/AdvReac Type Severity Reaction Status Date / Time No Known Allergies Allergy Verified 07/02/17 07:39 Physical Exam Vitals: Vital Signs Temp Pulse Pulse Resp BP BP Pulse Ox 07/02/17 08:00 16 07/02/17 07:00 99.9 F H 80 20 107/46 93 L 07/02/17 05:08 98.5 F 87 21 109/54 94 L 07/02/17 04:30 87 21 07/02/17 04:24 98.2 F 92 20 119/58 99 07/02/17 02:46 98.4 F 85 18 99/53 97 07/02/17 01:22 98.9 F 111 H 18 96/53 98 07/02/17 01:05 18 07/02/17 00:03 101.3 F H 104 H 18 110/53 96 Intake and Output 07/01/17 07/02/17 07/02/17 22:59 06:59 14:59 Intake Total 1620 Output Total 150 Balance -150 1620 Intake: Oral 1620 Output: Urine 150 Other: Voiding Method Indwelling Catheter Indwelling Catheter # Bowel Movements 1 Weight 107.501 kg PHYSICAL EXAMINATION: GENERAL: The patient is alert and oriented x3, not in any acute distress. Well developed, well nourished. HEENT: Pupils are round and equally reacting to light. EOMI. No scleral icterus. No conjunctival pallor. Normocephalic, atraumatic. No pharyngeal erythema. No thyromegaly. CARDIOVASCULAR: S1 and S2 present. No murmurs, rubs, or gallops. PULMONARY: Chest is clear to auscultation, no wheezing or crackles. ABDOMEN: Soft, nontender, nondistended, normoactive bowel sounds. No palpable organomegaly. MUSCULOSKELETAL: No joint swelling or deformity. EXTREMITIES: No cyanosis, clubbing, or pedal edema. Patient has a Ramesh catheter in place NEUROLOGICAL: Gross neurological examination did not reveal any focal deficits. SKIN: No rashes. Results CBC & Chem 7: 07/02/17 00:51 07/02/17 00:51 Labs: Abnormal Lab Results - Last 24 Hours (Table) 07/02/17 07/02/17 07/02/17 Range/Units 00:51 00:51 00:51 WBC 12.7 H (3.8-10.6) k/uL RBC 2.63 L (4.30-5.90) m/uL Hgb 7.1 L D (13.0-17.5) gm/dL Hct 23.0 L (39.0-53.0) % Neutrophils # 11.5 H (1.3-7.7) k/uL Lymphocytes # 0.6 L (1.0-4.8) k/uL Sodium 132 L (137-145) mmol/L Carbon Dioxide 21 L (22-30) mmol/L BUN 27 H (9-20) mg/dL Creatinine 2.00 H (0.66-1.25) mg/dL Glucose 210 H (74-99) mg/dL POC Glucose (mg/dL) (75-99) mg/dL Calcium 8.3 L (8.4-10.2) mg/dL AST 11 L (17-59) U/L Total Protein 5.8 L (6.3-8.2) g/dL Albumin 2.6 L (3.5-5.0) g/dL Urine Protein 2+ H (Negative) Urine Blood Large H (Negative) Ur Leukocyte Esterase Large H (Negative) Urine RBC 7 H (0-5) /hpf Urine WBC 126 H (0-5) /hpf Urine WBC Clumps Many H (None) /hpf Urine Bacteria Few H (None) /hpf Urine Mucus Few H (None) /hpf 07/02/17 07/02/17 Range/Units 07:22 12:29 WBC (3.8-10.6) k/uL RBC (4.30-5.90) m/uL Hgb (13.0-17.5) gm/dL Hct (39.0-53.0) % Neutrophils # (1.3-7.7) k/uL Lymphocytes # (1.0-4.8) k/uL Sodium (137-145) mmol/L Carbon Dioxide (22-30) mmol/L BUN (9-20) mg/dL Creatinine (0.66-1.25) mg/dL Glucose (74-99) mg/dL POC Glucose (mg/dL) 249 H 203 H (75-99) mg/dL Calcium (8.4-10.2) mg/dL AST (17-59) U/L Total Protein (6.3-8.2) g/dL Albumin (3.5-5.0) g/dL Urine Protein (Negative) Urine Blood (Negative) Ur Leukocyte Esterase (Negative) Urine RBC (0-5) /hpf Urine WBC (0-5) /hpf Urine WBC Clumps (None) /hpf Urine Bacteria (None) /hpf Urine Mucus (None) /hpf Microbiology - Last 24 Hours (Table) 07/02/17 00:51 Urine Culture - Preliminary Urine,Catheterized Thrombosis Risk Factor Assmnt - Choose All That Apply Any of the Below Risk Factors Present?: Yes Each Factor Represents 1 point: Acute PR, Medical pt on bed rest, Obesity (BMI > 25), Swollen legs (current) Other Risk Factors: Yes Each Risk Factor Represents 3 Points: Age 75 years or older Other congenital or acquired thrombophilia - If yes, enter type in comment: No Thrombosis Risk Factor Assessment Total Risk Factor Score: 7 Thrombosis Risk Factor Assessment Level: High Risk Assessment and Plan Plan: #1 sepsis: Secondary to urinary tract infection from Ramesh catheter patient has a chronic chronic Ramesh catheter will also consult neurology as during her last his last admission there was issues with placing a Ramesh catheter patient appears to have benign prostatic hypertrophy. #2 chronic kidney disease stage III probably diabetic nephropathy but there may be a competent of renal azotemia patient is hyponatremic as well patient appears to have will be An edema patient was started on 100 mL of normal saline. #3 hyperlipemia #4 hypertension #5 benign prostatic atrophy Above-mentioned chronic medical problems appropriate home medications will be continued
[2017-07-02] MEDS ORDERED: VANCOMYCIN IV PER PHARMACY 1 EACH MISC MISCELLANE PRN (15:26)
[2017-07-02] MEDS ORDERED: VANCOMYCIN 1,750 MG in SODIUM CHLORIDE 0.9% 250 ML IVPB ONE (16:00)
[2017-07-02 17:01] LABS: Glucose,Whole Blood 207 mg/dL (75-99)
[2017-07-02 18:08] LABS: Glucose,Whole Blood 218 mg/dL (75-99)
[2017-07-02 18:55] LABS: Basophils % (A) 0 %; Eosinophils % (A) 0 %; HCT 22.6 % (39.0-53.0); Hypochromasia Marked; Lymphocytes # (A) 0.7 k/uL (1.0-4.8); Lymphocytes % (A) 5 %; MCH 27.3 pg (25.0-35.0); MCHC 30.9 g/dL (31.0-37.0); MCV 88.1 fL (80.0-100.0); Mean Platelet Volume 7.2; Monocytes # (A) 0.5 k/uL (0-1.0); Monocytes % (A) 4 %; Neutrophils # (A) 13.4 k/uL (1.3-7.7); Neutrophils % (A) 91 %; Platelet Count 166 k/uL (150-450); Poikilocytosis Slight; RBC 2.56 m/uL (4.30-5.90); RDW 14.7 % (11.5-15.5); WBC 14.7 k/uL (3.8-10.6)
[2017-07-02 20:27] LABS: Hemoglobin A1C 6.3 % (4.0-6.0)
[2017-07-02 20:44] LABS: Glucose,Whole Blood 200 mg/dL (75-99)
[2017-07-02] MEDS: METOPROLOL TARTRATE 50 MG TAB PO SCH (20:45)
[2017-07-02] MEDS: ATORVASTATIN 20 MG TAB PO SCH (20:46)
[2017-07-02] MEDS ORDERED: HEPARIN SODIUM,PORCINE 5,000 UNIT/ML 1 ML VIAL SQ SCH (21:00)
[2017-07-02] MEDS ORDERED: SODIUM CHLORIDE 0.9% 500 ML IV ONE (21:40)
[2017-07-02] MEDS ORDERED: NOREPINEPHRIN 4 MG-0.9% NS PMX 4 MG/250 ML ML IV SCH (22:15)
[2017-07-03] MEDS: PIPERACILLIN-TAZOBACTAM 3.375 GM in DEXTROSE/WATER 1 50ML.BAG IVPB SCH ×3 (00:33→21:07)
[2017-07-03] MEDS ORDERED: FUROSEMIDE 10 MG/ML 4 ML VIAL IV STA ×2 (01:21→10:52)
[2017-07-03 04:28] LABS: Anisocytosis Slight; Basophils % (A) 0 %; Eosinophils % (A) 0 %; HCT 28.5 % (39.0-53.0); Hypochromasia Marked; Lymphocytes # (A) 0.8 k/uL (1.0-4.8); Lymphocytes % (A) 7 %; MCH 26.7 pg (25.0-35.0); Mean Platelet Volume 7.3; Monocytes # (A) 0.4 k/uL (0-1.0); Monocytes % (A) 4 %; Neutrophils # (A) 10.3 k/uL (1.3-7.7); Neutrophils % (A) 88 %; Platelet Count 152 k/uL (150-450); Poikilocytosis Slight; RDW 16.2 % (11.5-15.5); WBC 11.7 k/uL (3.8-10.6)
[2017-07-03 04:37] LABS: HGB 8.6 gm/dL (13.0-17.5)
[2017-07-03 04:39] LABS: Albumin 2.4 g/dL (3.5-5.0); Magnesium 1.8 mg/dL (1.6-2.3); Phosphorus 4.2 mg/dL (2.5-4.5); Potassium 4.6 mmol/L (3.5-5.1); Total Bilirubin 1.9 mg/dL (0.2-1.3); Total Protein 5.6 g/dL (6.3-8.2)
[2017-07-03 07:06] LABS: Glucose,Whole Blood 173 mg/dL (75-99)
[2017-07-03] MEDS ORDERED: PANTOPRAZOLE 40 MG TABLET PO SCH (07:30)
[2017-07-03] MEDS: SODIUM CHLORIDE 0.9% 1,000 ML IV SCH ×2 (07:55→17:13)
[2017-07-03] MEDS: PANTOPRAZOLE 40 MG/10 ML VIAL IVP SCH (07:55)
[2017-07-03] MEDS: METOPROLOL TARTRATE 50 MG TAB PO SCH ×2 (07:55→21:07)
[2017-07-03] MEDS: INSULIN ASPART 100 UNIT/ML 1 ML 10 ML VIAL SQ SCH ×4 (08:04→21:07)
--- NOTE | 2017-07-03 10:29 | P.CRDCN ---
History of Present Illness Consult date: 07/03/17 Chief complaint: Feeling weak History of present illness: This is a pleasant 81-year-old gentleman who sees Dr. VC Carrion in the office as an outpatient with a past medical history significant for paroxysmal atrial fibrillation as well as prostate cancer who was admitted initially to the fourth floor and was transferred to the intensive care unit because of rectal bleeding. The patient bled significantly from the rectum was bright red blood. 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 He is under the care of Dr. Mcallister at this point. His hemoglobin dropped and the patient received 2 units of packed RBC. The hemoglobin was 7 and increased to 8.6 after the blood transfusion. We get involved in the care of the patient because he is in A. fib with heart rate between 100 to 110 beats per minutes. The pressure has been marginally low. Currently the patient is on metoprolol for heart rate control and he was receiving oral anticoagulation but that was stopped. Clinically the patient denies having any chest pain or discomfort or difficulty breathing or heart racing or fluttering feeling at this point. Overall he is weak. The patient was here in May 2017 and at that point he underwent an echocardiogram which revealed normal LV function without significant valvular abnormalities Past Medical History Past Medical History: Coronary Artery Disease (CAD), Diabetes Mellitus, Hyperlipidemia, Hypertension, Prostate Disorder Additional Past Medical History / Comment(s): SHINGLES 3 YEARS AGO History of Any Multi-Drug Resistant Organisms: MRSA Date of last positivie culture/infection: 05/16/17 MDRO Source:: BLOOD,URINE Past Surgical History: No Surgical Hx Reported Additional Past Surgical History / Comment(s): SELENE CATARACTS, COLONOSCOPY/ POLYPECTOMY(BENIGN), orthopedic surgery when he was a child, cystoscopy last year Past Anesthesia/Blood Transfusion Reactions: No Reported Reaction Past Psychological History: No Psychological Hx Reported Smoking Status: Former smoker Past Alcohol Use History: None Reported Past Drug Use History: None Reported - Past Family History Father Family Medical History: Cancer Mother Family Medical History: Cancer Additional Family Medical History / Comment(s): BREAST CANCER Medications and Allergies Home Medications Medication Instructions Recorded Confirmed Type Metoprolol Tartrate [Lopressor] 50 mg PO BID #60 tab 05/31/16 07/02/17 Rx Atorvastatin [Lipitor] 20 mg PO HS 05/13/17 07/02/17 History Furosemide [Lasix] 20 mg PO BID 05/13/17 07/02/17 History amLODIPine BESYLATE [Norvasc] 5 mg PO DAILY 05/13/17 07/02/17 History Polyethylene Glycol 3350 [Miralax] 17 gm PO DAILY powd.pack 05/22/17 07/02/17 Rx Docusate [Colace] 100 mg PO BID cap 06/12/17 07/02/17 Rx HYDROcodone/APAP 7.5-325MG [[place] 1 tab PO Q8HR PRN #30 tab 06/12/17 07/02/17 Rx 7.5-325] Melatonin 3 mg PO HS PRN tablet 06/12/17 07/02/17 Rx Insulin Aspart [NovoLOG See Protocol SQ ACHS 07/02/17 07/02/17 History (formulary)] Insulin Degludec [Tresiba 07/02/17 History Flextouch U-100] Omeprazole 20 mg PO DAILY 07/02/17 07/02/17 History Oseltamivir Phosphate [Tamiflu] 30 mg PO DAILY 07/02/17 07/02/17 History Allergies Allergy/AdvReac Type Severity Reaction Status Date / Time No Known Allergies Allergy Verified 07/02/17 07:39 Physical Exam Vitals: Vital Signs Temp Pulse Pulse Resp BP BP Pulse Ox 07/03/17 10:00 106 H 21 94/50 97 07/03/17 09:00 101 H 18 92/55 98 07/03/17 08:00 98.4 F 105 H 20 129/71 97 07/03/17 07:00 105 H 20 117/56 100 07/03/17 04:00 116 H 21 110/55 97 07/03/17 03:40 95 24 07/03/17 03:30 92 24 110/55 97 07/03/17 03:00 70 104/47 94 L 07/03/17 02:55 98.8 F 71 25 H 102/62 07/03/17 02:30 76 28 H 104/47 98 07/03/17 02:00 71 26 H 107/54 98 07/03/17 01:30 72 28 H 97/50 96 07/03/17 01:03 99 F 71 26 H 97/50 95 07/03/17 01:00 72 24 101/48 91 L 07/03/17 00:53 98 F 71 27 H 101/48 07/03/17 00:41 97.8 F 71 26 H 101/48 97 07/03/17 00:30 71 27 H 99/51 96 07/03/17 00:01 99 F 73 26 H 94/45 97 07/03/17 00:00 99.0 F 75 23 94/45 99 07/02/17 23:30 72 31 H 86/42 94 L 07/02/17 23:25 93 23 07/02/17 23:20 98.8 F 70 23 86/42 98 07/02/17 23:00 71 25 H 82/41 98 07/02/17 22:50 99.1 F 69 29 H 82/41 07/02/17 22:40 99.2 F 70 26 H 91/42 07/02/17 22:30 70 27 H 77/43 97 07/02/17 22:00 98.9 F 68 28 H 87/44 96 07/02/17 21:30 71 29 H 107/51 95 07/02/17 21:00 84 29 H 106/51 92 L 07/02/17 20:30 99.6 F 87 23 111/53 96 07/02/17 20:00 86 26 H 110/52 96 07/02/17 19:45 93 07/02/17 19:30 87 30 H 110/51 94 L 07/02/17 19:00 86 19 112/51 93 L 07/02/17 18:30 87 20 121/58 92 L 07/02/17 18:10 99.9 F H 92 19 121/58 95 07/02/17 15:00 97.6 F 89 18 124/64 93 L Intake and Output 07/02/17 07/03/17 07/03/17 22:59 06:59 14:59 Intake Total 525 1220 337.5 Output Total 120 85 115 Balance 405 1135 222.5 Intake: IV 400 600 300 Sodium Chloride 0.9% 1, 400 600 300 000 ml @ 100 mls/hr IV . Q10H [facility] Rx#:[id number] Intake, IV Titration 125 37.5 Amount Piperacillin-Tazobactam 3 37.5 .375 gm In Dextrose/Water 1 50ml.bag @ 12.5 mls/hr IVPB Q8HR [facility] Rx#: [id number] Vancomycin 1,750 mg In 125 Sodium Chloride 0.9% 250 ml @ 125 mls/hr IVPB Q48H [facility] Rx#:[id number] Blood Product 0 620 Rc As-1 Unit 310 [id number] Rc As-1 Unit 0 310 [id number] Output: Urine 90 85 115 Stool 30 Other: Voiding Method Indwelling Catheter Indwelling Catheter Indwelling Catheter # Bowel Movements 1 Weight 111.1 kg - Constitutional General appearance: no acute distress - Respiratory Respiratory: bilateral: CTA - Cardiovascular Rhythm: irregularly irregular Heart sounds: normal: S1, S2 Results 07/03/17 04:16 07/03/17 04:16 Cardiac Enzymes 07/03/17 Range/Units 04:16 AST 158 H (17-59) U/L CBC 07/02/17 07/03/17 Range/Units 18:44 04:16 WBC 14.7 H 11.7 H (3.8-10.6) k/uL RBC 2.56 L 3.20 L (4.30-5.90) m/uL Hgb 7.0 L* 8.6 L D (13.0-17.5) gm/dL Hct 22.6 L 28.5 L (39.0-53.0) % Plt Count 166 152 (150-450) k/uL Comprehensive Metabolic Panel 07/03/17 Range/Units 04:16 Sodium 130 L (137-145) mmol/L Potassium 4.6 (3.5-5.1) mmol/L Chloride 101 (98-107) mmol/L Carbon Dioxide 18 L (22-30) mmol/L BUN 40 H (9-20) mg/dL Creatinine 3.10 H (0.66-1.25) mg/dL Glucose 174 H (74-99) mg/dL Calcium 8.0 L (8.4-10.2) mg/dL AST 158 H (17-59) U/L ALT 106 H (21-72) U/L Alkaline Phosphatase 70 (38-126) U/L Total Protein 5.6 L (6.3-8.2) g/dL Albumin 2.4 L (3.5-5.0) g/dL Current Medications Generic Name Dose Route Start Last Admin Trade Name Freq PRN Reason Stop Dose Admin Hydrocodone Bitart/Acetaminophen 1 each 07/02/17 12:[address] 7.5-325 PO Q8HR PRN Moderate Pain Atorvastatin Calcium 20 mg 07/02/17 21:00 07/02/17 20:46 Lipitor PO 20 mg HS [facility] Administration Docusate Sodium 100 mg 07/02/17 10:14 Colace PO BID PRN Constipation Sodium Chloride 1,000 mls @ 100 mls/hr 07/02/17 02:30 07/03/17 07:55 Saline 0.9% IV 100 mls/hr .Q10H [facility] Administration Vancomycin HCl 1,750 mg/ 250 mls @ 125 mls/hr 07/03/17 16:00 Sodium Chloride IVPB Q48H [facility] Norepinephrine Bitartrate 4 mg in 250 mls @ 0 mls/hr 07/02/17 22:15 Levophed-0.9% Nacl 4 Mg/250ml Pmx IV .Q0M [facility] Protocol Titrate Insulin Aspart 0 unit 07/02/17 07:35 07/03/17 08:04 Novolog SQ 2 unit ACHS [facility] Administration Protocol Melatonin 3 mg 07/02/17 10:14 Melatonin PO HS PRN Insomnia Metoprolol Tartrate 50 mg 07/02/17 21:00 07/03/17 07:55 Lopressor PO 50 mg BID [facility] Administration Pantoprazole Sodium 40 mg 07/03/17 09:00 07/03/17 07:55 Protonix IVP 40 mg DAILY [facility] Administration Polyethylene Glycol 17 gm 07/02/17 10:14 Miralax PO DAILY PRN Constipation Intake and Output 07/02/17 07/03/17 07/03/17 22:59 06:59 14:59 Intake Total 525 1220 337.5 Output Total 120 85 115 Balance 405 1135 222.5 Intake: IV 400 600 300 Sodium Chloride 0.9% 1, 400 600 300 000 ml @ 100 mls/hr IV . Q10H [facility] Rx#:[id number] Intake, IV Titration 125 37.5 Amount Piperacillin-Tazobactam 3 37.5 .375 gm In Dextrose/Water 1 50ml.bag @ 12.5 mls/hr IVPB Q8HR [facility] Rx#: [id number] Vancomycin 1,750 mg In 125 Sodium Chloride 0.9% 250 ml @ 125 mls/hr IVPB Q48H [facility] Rx#:[id number] Blood Product 0 620 Rc As-1 Unit 310 [id number] Rc As-1 Unit 0 310 [id number] Output: Urine 90 85 115 Stool 30 Other: Voiding Method Indwelling Catheter Indwelling Catheter Indwelling Catheter # Bowel Movements 1 Weight 111.1 kg 07/03/17 04:16 07/03/17 04:16 Assessment and Plan Assessment: Assessment #1 anemia secondary to rectal bleeding #2 prostate cancer #3 paroxysmal atrial fibrillation #4 generalized fatigue and tiredness #5 multiple comorbid conditions Plan #1 agree to keep the patient on the current dose of metoprolol #2 we will adjust the dose of metoprolol if we need to in the next 24 hours #3 I would continue holding oral anticoagulation at this point #4 follow-up with the patient
--- NOTE | 2017-07-03 10:51 | P.CNPUL ---
History of Present Illness Consult date: 07/03/17 Requesting physician: Harry Alanis Reason for consult: other (Critical care management) Chief complaint: Rectal bleeding History of present illness: This is a pleasant 81-year-old gentleman who resides at an extended care facility who has a history of coronary artery disease, paroxysmal atrial fibrillation, diabetes mellitus, hyperlipidemia, hypertension, shingles, MRSA infection in the blood and urine. 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 A recent PET scan revealed large hypermetabolic lesion presumed right-sided prostatic carcinoma there is also evidence of extra Chiller extension into the rectum and into the right pelvis causing osseous destruction of medial right MP a pelvic ramus near pubic symphysis. There is metastatic lesion to the liver as well. Patient was readmitted yesterday with fever and generalized weakness. Gentleman admitted to the regular medical floor with suspected urinary tract infection and sepsis. Last evening he developed bright red bleeding from the rectum approximately 50 MLS. He did have a drop in his systolic blood pressure into the 70s and 80s. His hemoglobin was 7.0. He was transferred here to the intensive care unit. He did not require any pressors. Did receive 2 units of packed red blood cells in his current hemoglobin is 8.6. White count 11.7. Creatinine 3.10. AST 158, ALT 106 Blood cultures are revealing presumptive MRSA. His chest x-ray shows mild fluid volume overload with small effusions. He is maintaining O2 saturations in the upper 90s on 2 L/m per nasal cannula. Review of Systems ROS unobtainable: due to mental status Past Medical History Past Medical History: Atrial Fibrillation, Coronary Artery Disease (CAD), Diabetes Mellitus, Hyperlipidemia, Hypertension, Prostate Disorder Additional Past Medical History / Comment(s): SHINGLES 3 YEARS AGO History of Any Multi-Drug Resistant Organisms: MRSA Date of last positivie culture/infection: 05/16/17 MDRO Source:: BLOOD,URINE Past Surgical History: No Surgical Hx Reported Additional Past Surgical History / Comment(s): SELENE CATARACTS, COLONOSCOPY/ POLYPECTOMY(BENIGN), orthopedic surgery when he was a child, cystoscopy last year Past Anesthesia/Blood Transfusion Reactions: No Reported Reaction Past Psychological History: No Psychological Hx Reported Smoking Status: Former smoker Past Alcohol Use History: None Reported Past Drug Use History: None Reported - Past Family History Father Family Medical History: Cancer Mother Family Medical History: Cancer Additional Family Medical History / Comment(s): BREAST CANCER Medications and Allergies Home Medications Medication Instructions Recorded Confirmed Type Metoprolol Tartrate [Lopressor] 50 mg PO BID #60 tab 05/31/16 07/02/17 Rx Atorvastatin [Lipitor] 20 mg PO HS 05/13/17 07/02/17 History Furosemide [Lasix] 20 mg PO BID 05/13/17 07/02/17 History amLODIPine BESYLATE [Norvasc] 5 mg PO DAILY 05/13/17 07/02/17 History Polyethylene Glycol 3350 [Miralax] 17 gm PO DAILY powd.pack 05/22/17 07/02/17 Rx Docusate [Colace] 100 mg PO BID cap 06/12/17 07/02/17 Rx HYDROcodone/APAP 7.5-325MG [[place] 1 tab PO Q8HR PRN #30 tab 06/12/17 07/02/17 Rx 7.5-325] Melatonin 3 mg PO HS PRN tablet 06/12/17 07/02/17 Rx Insulin Aspart [NovoLOG See Protocol SQ ACHS 07/02/17 07/02/17 History (formulary)] Insulin Degludec [Tresiba 07/02/17 History Flextouch U-100] Omeprazole 20 mg PO DAILY 07/02/17 07/02/17 History Oseltamivir Phosphate [Tamiflu] 30 mg PO DAILY 07/02/17 07/02/17 History Allergies Allergy/AdvReac Type Severity Reaction Status Date / Time No Known Allergies Allergy Verified 07/02/17 07:39 Physical Exam Vitals: Vital Signs Temp Pulse Pulse Resp BP BP Pulse Ox 07/03/17 10:00 106 H 21 94/50 97 07/03/17 09:00 101 H 18 92/55 98 07/03/17 08:00 98.4 F 105 H 20 129/71 97 07/03/17 07:00 105 H 20 117/56 100 07/03/17 04:00 116 H 21 110/55 97 07/03/17 03:40 95 24 07/03/17 03:30 92 24 110/55 97 07/03/17 03:00 70 104/47 94 L 07/03/17 02:55 98.8 F 71 25 H 102/62 12/26/17 02:30 76 28 H 104/47 98 07/03/17 02:00 71 26 H 107/54 98 07/03/17 01:30 72 28 H 97/50 96 07/03/17 01:03 99 F 71 26 H 97/50 95 07/03/17 01:00 72 24 101/48 91 L 07/03/17 00:53 98 F 71 27 H 101/48 07/03/17 00:41 97.8 F 71 26 H 101/48 97 07/03/17 00:30 71 27 H 99/51 96 07/03/17 00:01 99 F 73 26 H 94/45 97 07/03/17 00:00 99.0 F 75 23 94/45 99 07/02/17 23:30 72 31 H 86/42 94 L 07/02/17 23:25 93 23 07/02/17 23:20 98.8 F 70 23 86/42 98 07/02/17 23:00 71 25 H 82/41 98 07/02/17 22:50 99.1 F 69 29 H 82/41 07/02/17 22:40 99.2 F 70 26 H 91/42 07/02/17 22:30 70 27 H 77/43 97 07/02/17 22:00 98.9 F 68 28 H 87/44 96 07/02/17 21:30 71 29 H 107/51 95 07/02/17 21:00 84 29 H 106/51 92 L 07/02/17 20:30 99.6 F 87 23 111/53 96 07/02/17 20:00 86 26 H 110/52 96 07/02/17 19:45 93 07/02/17 19:30 87 30 H 110/51 94 L 07/02/17 19:00 86 19 112/51 93 L 07/02/17 18:30 87 20 121/58 92 L 07/02/17 18:10 99.9 F H 92 19 121/58 95 07/02/17 15:00 97.6 F 89 18 124/64 93 L Intake and Output 07/02/17 07/03/17 07/03/17 22:59 06:59 14:59 Intake Total 525 1220 337.5 Output Total 120 85 115 Balance 405 1135 222.5 Intake: IV 400 600 300 Sodium Chloride 0.9% 1, 400 600 300 000 ml @ 100 mls/hr IV . Q10H [facility]AT Rx#:[id number] Intake, IV Titration 125 37.5 Amount Piperacillin-Tazobactam 3 37.5 .375 gm In Dextrose/Water 1 50ml.bag @ 12.5 mls/hr IVPB Q8HR [facility] Rx#: [id number] Vancomycin 1,750 mg In 125 Sodium Chloride 0.9% 250 ml @ 125 mls/hr IVPB Q48H [facility] Rx#:[id number] Blood Product 0 620 Rc As-1 Unit 310 [id number] Rc As-1 Unit 0 310 [id number] Output: Urine 90 85 115 Stool 30 Other: Voiding Method Indwelling Catheter Indwelling Catheter Indwelling Catheter # Bowel Movements 1 Weight 111.1 kg GENERAL EXAM: Alert, fairly comfortable in no apparent distress. HEAD: Normocephalic. EYES: Normal reaction of pupils, equal size. NOSE: Clear with pink turbinates. THROAT: No erythema or exudates. NECK: No masses, no JVD. CHEST: No chest wall deformity. LUNGS: Equal air entry with crackles posterior bases. CVS: S1 and S2 normal with no audible murmur, irregular rhythm. ABDOMEN: No hepatosplenomegaly, normal bowel sounds, no guarding or rigidity. SPINE: No scoliosis or deformity SKIN: No rashes CENTRAL NERVOUS SYSTEM: No focal deficits, tone is normal in all 4 extremities. EXTREMITIES: There is no peripheral edema. No clubbing, no cyanosis. Peripheral pulses are intact. Results - Laboratory Findings CBC and BMP: 07/03/17 04:16 07/03/17 04:16 Abnormal lab findings: Abnormal Labs 07/01/17 07/02/17 07/02/17 23:45 00:51 00:51 WBC 12.7 H RBC 2.63 L Hgb 7.1 L D Hct 23.0 L MCHC RDW Neutrophils # 11.5 H Lymphocytes # 0.6 L Sodium 132 L Carbon Dioxide 21 L BUN 27 H Creatinine 2.00 H Glucose 210 H POC Glucose (mg/dL) Hemoglobin A1c Calcium 8.3 L Total Bilirubin AST 11 L ALT Total Protein 5.8 L Albumin 2.6 L Urine Protein Urine Blood Ur Leukocyte Esterase Urine RBC Urine WBC Urine WBC Clumps Urine Bacteria Urine Mucus Crossmatch See Detail 07/02/17 07/02/17 07/02/17 00:51 00:51 07:22 WBC RBC Hgb Hct MCHC RDW Neutrophils # Lymphocytes # Sodium Carbon Dioxide BUN Creatinine Glucose POC Glucose (mg/dL) 249 H Hemoglobin A1c 6.3 H Calcium Total Bilirubin AST ALT Total Protein Albumin Urine Protein 2+ H Urine Blood Large H Ur Leukocyte Esterase Large H Urine RBC 7 H Urine WBC 126 H Urine WBC Clumps Many H Urine Bacteria Few H Urine Mucus Few H Crossmatch 07/02/17 07/02/17 07/02/17 12:29 16:49 18:05 WBC RBC Hgb Hct MCHC RDW Neutrophils # Lymphocytes # Sodium Carbon Dioxide BUN Creatinine Glucose POC Glucose (mg/dL) 203 H 207 H 218 H Hemoglobin A1c Calcium Total Bilirubin AST ALT Total Protein Albumin Urine Protein Urine Blood Ur Leukocyte Esterase Urine RBC Urine WBC Urine WBC Clumps Urine Bacteria Urine Mucus Crossmatch 07/02/17 07/02/17 07/03/17 18:44 20:42 04:16 WBC 14.7 H 11.7 H RBC 2.56 L 3.20 L Hgb 7.0 L* 8.6 L D Hct 22.6 L 28.5 L MCHC 30.9 L 30.0 L RDW 16.2 H Neutrophils # 13.4 H 10.3 H Lymphocytes # 0.7 L 0.8 L Sodium Carbon Dioxide BUN Creatinine Glucose POC Glucose (mg/dL) 200 H Hemoglobin A1c Calcium Total Bilirubin AST ALT Total Protein Albumin Urine Protein Urine Blood Ur Leukocyte Esterase Urine RBC Urine WBC Urine WBC Clumps Urine Bacteria Urine Mucus Crossmatch 07/03/17 07/03/17 04:16 07:04 WBC RBC Hgb Hct MCHC RDW Neutrophils # Lymphocytes # Sodium 130 L Carbon Dioxide 18 L BUN 40 H Creatinine 3.10 H Glucose 174 H POC Glucose (mg/dL) 173 H Hemoglobin A1c Calcium 8.0 L Total Bilirubin 1.9 H AST 158 H ALT 106 H Total Protein 5.6 L Albumin 2.4 L Urine Protein Urine Blood Ur Leukocyte Esterase Urine RBC Urine WBC Urine WBC Clumps Urine Bacteria Urine Mucus Crossmatch - Diagnostic Findings Chest x-ray: image reviewed Assessment and Plan Assessment: Impression: #1 Acute rectal bleeding secondary to invading prostate mass. Status post 2 units of packed red blood cell infusions. Current hemoglobin 8.6. #2 Large hypermetabolic lesion of right-sided prostatic carcinoma with evidence of extra capsular extension into the rectum and into the right pelvis causing osseous distraction of medial right inferior pelvic ramus near pubic symphysis. Metastatic lesion to the liver. #3 Sepsis secondary to presumptive MRSA bacteremia. #4 Acute on chronic renal failure, current creatinine 3.10. #5 Elevated liver enzymes with metastatic liver lesion. #6 Paroxysmal atrial fibrillation. #7 Coronary artery disease. #8 Diabetes mellitus. #9 Hyperlipidemia. #10 Hypertension. #11 History of shingles. #12 [facility] resident. Plan: The patient was seen and evaluated by Dr. Barrow. His chest x-ray and labs were reviewed. We'll go ahead and give Lasix 40 mg IV push times one dose. Decrease IV fluids to MLS per hour. We will discontinue the Zosyn and continue vancomycin. We'll await further culture results. Oncology is on the case and will be consulting radiation oncology regarding the invasive prostate mass into the rectum. Continue to monitor hemoglobin. We'll continue to observe him closely here in the intensive care unit another 24 hours. We'll repeat a chest x-ray and labs in the a.m. Overall prognosis is quite poor and the multiple comorbidities and metastatic prostate cancer. CODE STATUS should be addressed. We'll continue to follow and make further recommendations based on his clinical status. I, the cosigning physician, have performed a history and physical examination on the patient. Lung sounds have crackles in the bilateral posterior bases.. Maintaining good O2 saturations in the 90s on 3 L/m per nasal cannula. I have discussed the assessment and plan of care with my nurse practitioner, Karmen Seo. I attest the above documented note as dictated by her. Time with Patient: Greater than 30
--- NOTE | 2017-07-03 11:02 | CONS ---
CONSULTATION DATE OF SERVICE: 07/03/2017 REQUESTING PHYSICIAN: Dr. Martinez. REASON FOR CONSULTATION: Acute GI bleed. HISTORY: The patient is an 81-year-old pleasant white male who was transferred from the skilled nursing for confusion. He subsequently was diagnosed with urinary tract infection, was started on broad-spectrum antibiotics. However, while he was on the floor, he started having rectal bleeding. He had about 3 episodes of blood with mucus in the stool and a CBC showed hemoglobin had dropped to 7.1, he was somewhat hypotensive and he was transferred to the intensive care unit. As per the nursing staff, he had 3 bowel movements in the last 24 hour period, mucousy, jelly-like about 30 mL or so all day yesterday. Last one was about 12 hours ago. He denies any abdominal pain, reports no nausea, vomiting. Denies any fever, chills, or night sweats. The patient was admitted to hospital with acute GI bleed in May of 2017. He had an upper endoscopy as well as colonoscopy done by Dr. Aldrich. The colonoscopy revealed a friable mass in the rectum. Biopsy showed invasive prostate adenocarcinoma. Dr. Mcallister was consulted. He evaluated the patient and at this time contemplating chemo versus radiation therapy, which has not been started yet. PAST MEDICAL HISTORY: Coronary artery disease, diabetes mellitus, hypertension, hyperlipidemia. PAST SURGICAL HISTORY: Bilateral cataract, EGD, colonoscopy in May of 2017, cystoscopy. MEDICATIONS AT HOME: Lopressor, Lipitor, Lasix, Norvasc, MiraLAX, Colace, [place], insulin, Tresiba,Tamiflu, omeprazole. ALLERGIES: None. SOCIAL HISTORY: No smoking. No alcohol use. FAMILY HISTORY: Father had some kind of cancer. Mother had breast cancer. REVIEW OF SYSTEMS: CARDIOPULMONARY: No chest pain or shortness of breath. GENITOURINARY: No dysuria or hematuria. MUSCULOSKELETAL: Unremarkable. SKIN: Unremarkable. ENDOCRINE: Unremarkable. PSYCHIATRIC: Unremarkable. NEUROLOGY: Unremarkable. ENT/VISION: Unremarkable. CONSTITUTIONAL: No recent weight loss. No fever, chills, night sweats. PHYSICAL EXAMINATION: On physical examination, he appears comfortable, no apparent distress. Vital signs are stable. Blood pressure 117/56, pulse rate 105, temperature 98. HEENT EXAMINATION: Unremarkable. Conjunctivae pink. Sclerae anicteric. Oral cavity, no lesions. NECK: No JVD or lymph node enlargement. Chest was clear to auscultation. HEART: Regular rate and rhythm. ABDOMEN: Soft. Bowel sounds are positive. No organomegaly. EXTREMITIES: No pedal edema. SKIN: No rashes. NEURO: Alert and oriented x3. No focal deficits. LABS: WBC 14.7, hemoglobin 7, today it is 8.6 after 2 units of blood transfusion. BUN is 40, creatinine is 3.10. T-bili 1.9, AST 158, ALT 106. IMPRESSION: 1. Rectal bleeding on and off for the last several months duration. Dropped his hemoglobin to 7, required 2 units of blood transfusion, currently it is 8.6 g/dL. He did have an EGD and colonoscopy done by Dr. Aldrich, which showed a friable mass in the rectum. Biopsy showed showed prostate adenocarcinoma with invasion into the rectum. Dr. Mcallister has been consulted during his last hospital hospitalization and contemplating chemo versus radiation therapy at the present. 2. Urinary tract infection, on broad-spectrum antibiotics. RECOMMENDATIONS: 1. Agree with 2 units of blood transfusion. 2. Follow CBC on a daily basis. 3. At this time for the rectal bleeding, he does not need any further endoscopy evaluation. If the rectal bleeding has to be controlled with possible radiation therapy and this will be discussed with Dr. Mcallister. For now will monitor the CBC and transfuse him as needed if he drops his hemoglobin again. Thank you for this consultation. MMODL / AMINTAN: [id number] /
--- NOTE | 2017-07-03 11:10 | P.CONS ---
History of Present Illness - Reason for Consult Consult date: 07/03/17 Prostate adenocarcinoma Requesting physician: Arelis Guerra - Chief Complaint fever - History of Present Illness Mr. Leslie is a very pleasant 81-year-old male pt who was initially seen in consult at [facility] 06/07/17, he was admitted about 2 weeks prior for MRSA infection and his baseline hemoglobin was noted to be in the 11-12 range, it dropped substantially into the 9-10 range with episode of rectal bleeding. CT AP revealed abnormality at the prostate/rectum interface, felt to be infection or abscess, transrectal ultrasound was attempted but limited because of pain, he was also noted to have a right pubic ramus fracture at that time felt to be contributing to the pain so, pt did have some improved with treatment of infection and was transferred to [facility]. Pt complained of decreased endurance, hemoglobin was 7.9 so he came back to hospital. EGD and colonoscopy 06/06, an ulcerated, friable mass was found anteriorly in the rectum, continuous with the anal canal, biopsy positive for prostate adenocarcinoma, staging PET reveled hypermetabolic uptake in a liver nodule and in the pelvis. Pt was to be referred back to Urology for hormone manipulation therapy, pt was also to be referred to Radiation Oncology for possible palliative radiation to mass invading the rectum causing bleeding. Pt is currently seen in ICU due to significant rectal bleeding. Pt does not remember being diagnosed with cancer, he does not know which Doctors he has seen or when he is seeing them. He remembers that there was a mass in the rectum that was bleeding, he denied any other bleeding, no pain, he is very tired, did not sleep well, denied KARON, nausea. Review of Systems 10 point ROS as stated in HPI Past Medical History Past Medical History: Atrial Fibrillation, Coronary Artery Disease (CAD), Cancer (prostate adenocarcinoma ), Diabetes Mellitus, Hyperlipidemia, Hypertension, Prostate Disorder Additional Past Medical History / Comment(s): SHINGLES 3 YEARS AGO History of Any Multi-Drug Resistant Organisms: MRSA Year Discovered:: 05/16/17 MDRO Source:: BLOOD,URINE Past Surgical History: No Surgical Hx Reported Additional Past Surgical History / Comment(s): SELENE CATARACTS, COLONOSCOPY/ POLYPECTOMY(BENIGN), orthopedic surgery when he was a child, cystoscopy last year Past Anesthesia/Blood Transfusion Reactions: No Reported Reaction Past Psychological History: No Psychological Hx Reported Smoking Status: Former smoker Past Alcohol Use History: None Reported Past Drug Use History: None Reported - Past Family History Father Family Medical History: Cancer Mother Family Medical History: Cancer Additional Family Medical History / Comment(s): BREAST CANCER Medications and Allergies Home Medications Medication Instructions Recorded Confirmed Type Metoprolol Tartrate [Lopressor] 50 mg PO BID #60 tab 05/31/16 07/02/17 Rx Atorvastatin [Lipitor] 20 mg PO HS 05/13/17 07/02/17 History Furosemide [Lasix] 20 mg PO BID 05/13/17 07/02/17 History amLODIPine BESYLATE [Norvasc] 5 mg PO DAILY 05/13/17 07/02/17 History Polyethylene Glycol 3350 [Miralax] 17 gm PO DAILY powd.pack 05/22/17 07/02/17 Rx Docusate [Colace] 100 mg PO BID cap 06/12/17 07/02/17 Rx HYDROcodone/APAP 7.5-325MG [[place] 1 tab PO Q8HR PRN #30 tab 06/12/17 07/02/17 Rx 7.5-325] Melatonin 3 mg PO HS PRN tablet 06/12/17 07/02/17 Rx Insulin Aspart [NovoLOG See Protocol SQ ACHS 07/02/17 07/02/17 History (formulary)] Insulin Degludec [Tresiba 07/02/17 History Flextouch U-100] Omeprazole 20 mg PO DAILY 07/02/17 07/02/17 History Oseltamivir Phosphate [Tamiflu] 30 mg PO DAILY 07/02/17 07/02/17 History Allergies Allergy/AdvReac Type Severity Reaction Status Date / Time No Known Allergies Allergy Verified 07/02/17 07:39 Physical Exam Vitals: Vital Signs Temp Pulse Pulse Resp BP BP Pulse Ox 07/03/17 10:00 106 H 21 94/50 97 07/03/17 09:00 101 H 18 92/55 98 07/03/17 08:00 98.4 F 105 H 20 129/71 97 07/03/17 07:00 105 H 20 117/56 100 07/03/17 04:00 116 H 21 110/55 97 07/03/17 03:40 95 24 07/03/17 03:30 92 24 110/55 97 07/03/17 03:00 70 104/47 94 L 07/03/17 02:55 98.8 F 71 25 H 102/62 07/03/17 02:30 76 28 H 104/47 98 07/03/17 02:00 71 26 H 107/54 98 07/03/17 01:30 72 28 H 97/50 96 07/03/17 01:03 99 F 71 26 H 97/50 95 07/03/17 01:00 72 24 101/48 91 L 07/03/17 00:53 98 F 71 27 H 101/48 07/03/17 00:41 97.8 F 71 26 H 101/48 97 07/03/17 00:30 71 27 H 99/51 96 07/03/17 00:01 99 F 73 26 H 94/45 97 07/03/17 00:00 99.0 F 75 23 94/45 99 07/02/17 23:30 72 31 H 86/42 94 L 07/02/17 23:25 93 23 07/02/17 23:20 98.8 F 70 23 86/42 98 07/02/17 23:00 71 25 H 82/41 98 07/02/17 22:50 99.1 F 69 29 H 82/41 07/02/17 22:40 99.2 F 70 26 H 91/42 07/02/17 22:30 70 27 H 77/43 97 07/02/17 22:00 98.9 F 68 28 H 87/44 96 07/02/17 21:30 71 29 H 107/51 95 07/02/17 21:00 84 29 H 106/51 92 L 07/02/17 20:30 99.6 F 87 23 111/53 96 07/02/17 20:00 86 26 H 110/52 96 07/02/17 19:45 93 07/02/17 19:30 87 30 H 110/51 94 L 07/02/17 19:00 86 19 112/51 93 L 07/02/17 18:30 87 20 121/58 92 L 07/02/17 18:10 99.9 F H 92 19 121/58 95 07/02/17 15:00 97.6 F 89 18 124/64 93 L Intake and Output 12/25/17 12/26/17 12/26/17 22:59 06:59 14:59 Intake Total 525 1220 337.5 Output Total 120 85 115 Balance 405 1135 222.5 Intake: IV 400 600 300 Sodium Chloride 0.9% 1, 400 600 300 000 ml @ 100 mls/hr IV . Q10H NUZHAT Rx#:[id number] Intake, IV Titration 125 37.5 Amount Piperacillin-Tazobactam 3 37.5 .375 gm In Dextrose/Water 1 50ml.bag @ 12.5 mls/hr IVPB Q8HR NUZHAT Rx#: [id number] Vancomycin 1,750 mg In 125 Sodium Chloride 0.9% 250 ml @ 125 mls/hr IVPB Q48H NUZHAT Rx#:[id number] Blood Product 0 620 Rc As-1 Unit 310 [id number] Rc As-1 Unit 0 310 [id number] Output: Urine 90 85 115 Stool 30 Other: Voiding Method Indwelling Catheter Indwelling Catheter Indwelling Catheter # Bowel Movements 1 Weight 111.1 kg - Constitutional General appearance: average body habitus, cooperative, no acute distress - EENT Eyes: anicteric sclerae, EOMI, normal appearance ENT: normal oropharynx - Neck Neck: no lymphadenopathy - Respiratory Respiratory: bilateral: CTA (weak inspiratory effort) - Cardiovascular Rhythm: irregularly irregular Heart sounds: normal: S1, S2 leg Peripheral Edema: bilateral: 1+ - Gastrointestinal General gastrointestinal: no absent bowel sounds, no decreased bowel sounds, no distended, no hepatomegaly, no hyperactive bowel sounds, normal bowel sounds, no organomegaly, no rigid, no scaphoid, soft, no splenomegaly, no tenderness, no umbilical hernia, no ventral hernia - Integumentary Integumentary: pale - Neurologic Neurologic: CNII-XII intact - Musculoskeletal Musculoskeletal: generalized weakness, strength equal bilaterally - Psychiatric Psychiatric: A&O x's 3, appropriate affect (pt states frustration with lack of sleep), intact judgment & insight Results CBC & Chem 7: 07/03/17 12:12 07/03/17 04:16 Labs: Abnormal Lab Results - Last 24 Hours (Table) 07/01/17 07/02/17 07/02/17 Range/Units 23:45 00:51 12:29 WBC (3.8-10.6) k/uL RBC (4.30-5.90) m/uL Hgb (13.0-17.5) gm/dL Hct (39.0-53.0) % MCHC (31.0-37.0) g/dL RDW (11.5-15.5) % Neutrophils # (1.3-7.7) k/uL Lymphocytes # (1.0-4.8) k/uL Sodium (137-145) mmol/L Carbon Dioxide (22-30) mmol/L BUN (9-20) mg/dL Creatinine (0.66-1.25) mg/dL Glucose (74-99) mg/dL POC Glucose (mg/dL) 203 H (75-99) mg/dL Hemoglobin A1c 6.3 H (4.0-6.0) % Calcium (8.4-10.2) mg/dL Total Bilirubin (0.2-1.3) mg/dL AST (17-59) U/L ALT (21-72) U/L Total Protein (6.3-8.2) g/dL Albumin (3.5-5.0) g/dL Crossmatch See Detail 07/02/17 07/02/17 07/02/17 Range/Units 16:49 18:05 18:44 WBC 14.7 H (3.8-10.6) k/uL RBC 2.56 L (4.30-5.90) m/uL Hgb 7.0 L* (13.0-17.5) gm/dL Hct 22.6 L (39.0-53.0) % MCHC 30.9 L (31.0-37.0) g/dL RDW (11.5-15.5) % Neutrophils # 13.4 H (1.3-7.7) k/uL Lymphocytes # 0.7 L (1.0-4.8) k/uL Sodium (137-145) mmol/L Carbon Dioxide (22-30) mmol/L BUN (9-20) mg/dL Creatinine (0.66-1.25) mg/dL Glucose (74-99) mg/dL POC Glucose (mg/dL) 207 H 218 H (75-99) mg/dL Hemoglobin A1c (4.0-6.0) % Calcium (8.4-10.2) mg/dL Total Bilirubin (0.2-1.3) mg/dL AST (17-59) U/L ALT (21-72) U/L Total Protein (6.3-8.2) g/dL Albumin (3.5-5.0) g/dL Crossmatch 07/02/17 07/03/17 07/03/17 Range/Units 20:42 04:16 04:16 WBC 11.7 H (3.8-10.6) k/uL RBC 3.20 L (4.30-5.90) m/uL Hgb 8.6 L D (13.0-17.5) gm/dL Hct 28.5 L (39.0-53.0) % MCHC 30.0 L (31.0-37.0) g/dL RDW 16.2 H (11.5-15.5) % Neutrophils # 10.3 H (1.3-7.7) k/uL Lymphocytes # 0.8 L (1.0-4.8) k/uL Sodium 130 L (137-145) mmol/L Carbon Dioxide 18 L (22-30) mmol/L BUN 40 H (9-20) mg/dL Creatinine 3.10 H (0.66-1.25) mg/dL Glucose 174 H (74-99) mg/dL POC Glucose (mg/dL) 200 H (75-99) mg/dL Hemoglobin A1c (4.0-6.0) % Calcium 8.0 L (8.4-10.2) mg/dL Total Bilirubin 1.9 H (0.2-1.3) mg/dL AST 158 H (17-59) U/L ALT 106 H (21-72) U/L Total Protein 5.6 L (6.3-8.2) g/dL Albumin 2.4 L (3.5-5.0) g/dL Crossmatch 07/03/17 Range/Units 07:04 WBC (3.8-10.6) k/uL RBC (4.30-5.90) m/uL Hgb (13.0-17.5) gm/dL Hct (39.0-53.0) % MCHC (31.0-37.0) g/dL RDW (11.5-15.5) % Neutrophils # (1.3-7.7) k/uL Lymphocytes # (1.0-4.8) k/uL Sodium (137-145) mmol/L Carbon Dioxide (22-30) mmol/L BUN (9-20) mg/dL Creatinine (0.66-1.25) mg/dL Glucose (74-99) mg/dL POC Glucose (mg/dL) 173 H (75-99) mg/dL Hemoglobin A1c (4.0-6.0) % Calcium (8.4-10.2) mg/dL Total Bilirubin (0.2-1.3) mg/dL AST (17-59) U/L ALT (21-72) U/L Total Protein (6.3-8.2) g/dL Albumin (3.5-5.0) g/dL Crossmatch Microbiology - Last 24 Hours (Table) 07/02/17 00:51 Blood Culture Gram Stain - Preliminary Blood Blood Culture - Preliminary Presumptive MRSA 07/02/17 00:51 Blood Culture - Final Blood 07/02/17 00:51 Urine Culture - Preliminary Urine,Catheterized Assessment and Plan (1) Prostate cancer Narrative/Plan: Diagnosed 06/07. Pt was to start androgen depravation therapy with Urology and was to be referred for palliative radiation for the rectal bleeding caused by the tumor invasion of the rectum. Dr. Snider's note reviewed, will consult Dr. Alamo. PET resulted after pt seen. There is metastatic disease to the bone and the liver nodule is hypermetabolic. This will not alter initial course of treatment , bisphosphonate therapy will need to be added for bone mets. Oral androgen blockade medications may be considered in the future based on pt response to initial therapy. It has been previously discussed that pt is not a candidate for up front chemotherapy due to poor performance status. Current Visit: Yes Status: Acute Priority: High Code(s): C61 - MALIGNANT NEOPLASM OF PROSTATE SNOMED Code(s): 181541600 (2) Acute blood loss anemia Narrative/Plan: Appropriate response in Hgb to transfusion, monitor CBC and transfuse conservatively. Case was discussed with Radiation Oncologist. Dr. Alamo will evaluate pt for possible palliative Radiation. Current Visit: Yes Status: Acute Priority: High Code(s): D62 - ACUTE POSTHEMORRHAGIC ANEMIA SNOMED Code(s): 826440843 Plan: MRSA urosepsis. On abx
[2017-07-03 12:19] LABS: Glucose,Whole Blood 172 mg/dL (75-99)
[2017-07-03 13:04] LABS: HCT 27.7 % (39.0-53.0); HGB 8.7 gm/dL (13.0-17.5); Hypochromasia Moderate; MCH 27.1 pg (25.0-35.0); MCHC 31.4 g/dL (31.0-37.0); MCV 86.2 fL (80.0-100.0); Mean Platelet Volume 7.3; Platelet Count 173 k/uL (150-450); Poikilocytosis Moderate; RBC 3.21 m/uL (4.30-5.90); RDW 15.6 % (11.5-15.5); WBC 12.6 k/uL (3.8-10.6)
--- NOTE | 2017-07-03 14:13 | P.PN ---
Subjective 81-year-old admitted for altered mental status and severe sepsis secondary to urinary tract infection Ramesh catheter related urine cultures showing gram- negative bacilli. Patient has positive blood cultures as MRSA repeat blood cultures will be obtained today tomorrow morning. Patient had a GI bleed secondary to friable rectal mass. Patient was subsequently transferred to ICU patient received 2 units of blood transfusion because of acute blood loss anemia from lower GI bleed patient was evaluated by multiple consultants received IV Lasix because of pulmonary edema related to IV fluid resuscitation patient had a normal ejection fraction, patient had poor renal function borderline urine output worsening kidney function with creatinine going up from 2.5-3.2 probably secondary to acute tubular necrosis from sepsis Constitutional: Planning of generalized tiredness and fatigue Cardio vascular: denied any chest pain, palpitations Gastrointestinal denied any nausea vomiting Pulmonary: Denied any shortness of breath cough Neurologic denied any new focal deficits Objective - Vital Signs Vital signs: Vital Signs Temp 99.8 F H 07/03/17 12:00 Pulse 113 H 07/03/17 13:00 Resp 18 07/03/17 13:00 BP 104/55 07/03/17 13:00 Pulse Ox 100 07/03/17 13:00 Intake & Output 07/02/17 07/03/17 07/03/17 18:59 06:59 18:59 Intake Total 1745 1620 500.0 Output Total 55 150 275 Balance 1690 1470 225.0 Weight 111.1 kg Intake: IV 1000 450 Sodium Chloride 0.9% 1, 1000 450 000 ml @ 50 mls/hr IV . Q20H [facility] Rx#:[id number] Intake, IV Titration 125 50.0 Amount Piperacillin-Tazobactam 3 50.0 .375 gm In Dextrose/Water 1 50ml.bag @ 12.5 mls/hr IVPB Q8HR [facility] Rx#: [id number] Vancomycin 1,750 mg In 125 Sodium Chloride 0.9% 250 ml @ 125 mls/hr IVPB Q48H [facility] Rx#:[id number] Oral 1620 Blood Product 620 Rc As-1 Unit 310 [id number] Rc As-1 Unit 310 [id number] Output: Urine 25 150 275 Stool 30 Other: Voiding Method Indwelling Catheter Indwelling Catheter Indwelling Catheter # Bowel Movements 1 - Exam PHYSICAL EXAMINATION: GENERAL: The patient is alert and oriented x3, not in any acute distress. Well developed, well nourished. HEENT: Pupils are round and equally reacting to light. EOMI. No scleral icterus. No conjunctival pallor. Normocephalic, atraumatic. No pharyngeal erythema. No thyromegaly. CARDIOVASCULAR: S1 and S2 present. No murmurs, rubs, or gallops. PULMONARY: Chest is clear to auscultation, no wheezing or crackles. ABDOMEN: Soft, nontender, nondistended, normoactive bowel sounds. No palpable organomegaly. MUSCULOSKELETAL: No joint swelling or deformity. EXTREMITIES: No cyanosis, clubbing, or pedal edema. Patient has a Ramesh catheter in place NEUROLOGICAL: Gross neurological examination did not reveal any focal deficits. SKIN: No rashes. - Labs CBC & Chem 7: 07/03/17 12:12 07/03/17 04:16 Labs: Abnormal Lab Results - Last 24 Hours (Table) 07/01/17 07/02/17 07/02/17 Range/Units 23:45 00:51 16:49 WBC (3.8-10.6) k/uL RBC (4.30-5.90) m/uL Hgb (13.0-17.5) gm/dL Hct (39.0-53.0) % MCHC (31.0-37.0) g/dL RDW (11.5-15.5) % Neutrophils # (1.3-7.7) k/uL Lymphocytes # (1.0-4.8) k/uL Sodium (137-145) mmol/L Carbon Dioxide (22-30) mmol/L BUN (9-20) mg/dL Creatinine (0.66-1.25) mg/dL Glucose (74-99) mg/dL POC Glucose (mg/dL) 207 H (75-99) mg/dL Hemoglobin A1c 6.3 H (4.0-6.0) % Calcium (8.4-10.2) mg/dL Total Bilirubin (0.2-1.3) mg/dL AST (17-59) U/L ALT (21-72) U/L Total Protein (6.3-8.2) g/dL Albumin (3.5-5.0) g/dL Crossmatch See Detail 07/02/17 07/02/1717 Range/Units 18:05 18:44 20:42 WBC 14.7 H (3.8-10.6) k/uL RBC 2.56 L (4.30-5.90) m/uL Hgb 7.0 L* (13.0-17.5) gm/dL Hct 22.6 L (39.0-53.0) % MCHC 30.9 L (31.0-37.0) g/dL RDW (11.5-15.5) % Neutrophils # 13.4 H (1.3-7.7) k/uL Lymphocytes # 0.7 L (1.0-4.8) k/uL Sodium (137-145) mmol/L Carbon Dioxide (22-30) mmol/L BUN (9-20) mg/dL Creatinine (0.66-1.25) mg/dL Glucose (74-99) mg/dL POC Glucose (mg/dL) 218 H 200 H (75-99) mg/dL Hemoglobin A1c (4.0-6.0) % Calcium (8.4-10.2) mg/dL Total Bilirubin (0.2-1.3) mg/dL AST (17-59) U/L ALT (21-72) U/L Total Protein (6.3-8.2) g/dL Albumin (3.5-5.0) g/dL Crossmatch 07/03/17 07/03/17 07/03/17 Range/Units 04:16 04:16 07:04 WBC 11.7 H (3.8-10.6) k/uL RBC 3.20 L (4.30-5.90) m/uL Hgb 8.6 L D (13.0-17.5) gm/dL Hct 28.5 L (39.0-53.0) % MCHC 30.0 L (31.0-37.0) g/dL RDW 16.2 H (11.5-15.5) % Neutrophils # 10.3 H (1.3-7.7) k/uL Lymphocytes # 0.8 L (1.0-4.8) k/uL Sodium 130 L (137-145) mmol/L Carbon Dioxide 18 L (22-30) mmol/L BUN 40 H (9-20) mg/dL Creatinine 3.10 H (0.66-1.25) mg/dL Glucose 174 H (74-99) mg/dL POC Glucose (mg/dL) 173 H (75-99) mg/dL Hemoglobin A1c (4.0-6.0) % Calcium 8.0 L (8.4-10.2) mg/dL Total Bilirubin 1.9 H (0.2-1.3) mg/dL AST 158 H (17-59) U/L ALT 106 H (21-72) U/L Total Protein 5.6 L (6.3-8.2) g/dL Albumin 2.4 L (3.5-5.0) g/dL Crossmatch 07/03/17 07/03/17 Range/Units 12:12 12:18 WBC 12.6 H (3.8-10.6) k/uL RBC 3.21 L (4.30-5.90) m/uL Hgb 8.7 L (13.0-17.5) gm/dL Hct 27.7 L (39.0-53.0) % MCHC (31.0-37.0) g/dL RDW 15.6 H (11.5-15.5) % Neutrophils # (1.3-7.7) k/uL Lymphocytes # (1.0-4.8) k/uL Sodium (137-145) mmol/L Carbon Dioxide (22-30) mmol/L BUN (9-20) mg/dL Creatinine (0.66-1.25) mg/dL Glucose (74-99) mg/dL POC Glucose (mg/dL) 172 H (75-99) mg/dL Hemoglobin A1c (4.0-6.0) % Calcium (8.4-10.2) mg/dL Total Bilirubin (0.2-1.3) mg/dL AST (17-59) U/L ALT (21-72) U/L Total Protein (6.3-8.2) g/dL Albumin (3.5-5.0) g/dL Crossmatch Microbiology - Last 24 Hours (Table) 07/02/17 00:51 Urine Culture - Preliminary Urine,Catheterized Gram Neg Bacilli 07/02/17 00:51 Blood Culture Gram Stain - Preliminary Blood Blood Culture - Preliminary Presumptive MRSA 07/02/17 00:51 Blood Culture - Final Blood Assessment and Plan Plan: #1 sepsis: Secondary to urinary tract infection from Ramesh catheter patient has a chronic chronic Ramesh catheter will also consult neurology as during her last his last admission there was issues with placing a Ramesh catheter patient appears to have benign prostatic hypertrophy. #2 chronic kidney disease stage III probably diabetic nephropathy but there may be a competent of renal azotemia patient is hyponatremic as well patient appears to have will be An edema patient was started on 100 mL of normal saline. #3 hyperlipemia #4 hypertension #5 benign prostatic atrophy Above-mentioned chronic medical problems appropriate home medications will be continued
[2017-07-03] MEDS: BICALUTAMIDE 50 MG TAB PO SCH ×2 (14:25→21:08)
--- NOTE | 2017-07-03 14:42 | P.GSCN ---
History of Present Illness Consult date: 07/03/17 Reason for Consult: Prostate cancer and urinary retention History of present illness: The patient is an 81-year-old male admitted on 07/02 for evaluation of rectal bleeding. The bleeding first began approximately 2 months ago. He underwent colonoscopy with biopsy of an anterior rectal mass on 05/17/2017 and the mass was confirmed to be adenocarcinoma of the prostate. PSA was 51.4 on 06/13/2017. PET scan showed increased activity in the prostate, right inferior pubic ramus and rectum consistent with local extension of the prostate cancer. There is also a mass in the liver consistent with metastatic disease. Plans had been made for the patient to begin androgen deprivation therapy and radiation therapy to the prostate but none this had actually been started. Over the last several days the patient experienced increasing amounts of blood passed per rectum and he was admitted for further evaluation. He is currently in the intensive care unit. The patient has been followed by Dr. Bridges for approximately one year due to urinary retention. 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 Bridges in 05/2017. The catheter has remained in place since then. The patient has not been seen by Dr. Bridges since then. Review of Systems - Gastrointestinal Reports hematochezia - Genitourinary Reports as per HPI Past Medical History Past Medical History: Atrial Fibrillation, Coronary Artery Disease (CAD), Cancer (prostate adenocarcinoma ), Diabetes Mellitus, Hyperlipidemia, Hypertension, Prostate Disorder (Prostate cancer with probable metastasis to liver, right inferior pubic ramus and direct extension into anterior rectal wall.) Additional Past Medical History / Comment(s): SHINGLES 3 YEARS AGO History of Any Multi-Drug Resistant Organisms: MRSA Year Discovered:: 05/16/17 MDRO Source:: BLOOD,URINE Past Surgical History: No Surgical Hx Reported Additional Past Surgical History / Comment(s): SELENE CATARACTS, COLONOSCOPY/ POLYPECTOMY(BENIGN), orthopedic surgery when he was a child, cystoscopy last year Past Anesthesia/Blood Transfusion Reactions: No Reported Reaction Past Psychological History: No Psychological Hx Reported Smoking Status: Former smoker Past Alcohol Use History: None Reported Past Drug Use History: None Reported - Past Family History Father Family Medical History: Cancer Mother Family Medical History: Cancer Additional Family Medical History / Comment(s): BREAST CANCER Medications and Allergies Home Medications Medication Instructions Recorded Confirmed Type Metoprolol Tartrate [Lopressor] 50 mg PO BID #60 tab 05/31/16 07/02/17 Rx Atorvastatin [Lipitor] 20 mg PO HS 05/13/17 07/02/17 History Furosemide [Lasix] 20 mg PO BID 05/13/17 07/02/17 History amLODIPine BESYLATE [Norvasc] 5 mg PO DAILY 05/13/17 07/02/17 History Polyethylene Glycol 3350 [Miralax] 17 gm PO DAILY powd.pack 05/22/17 07/02/17 Rx Docusate [Colace] 100 mg PO BID cap 06/12/17 07/02/17 Rx HYDROcodone/APAP 7.5-325MG [[place] 1 tab PO Q8HR PRN #30 tab 06/12/17 07/02/17 Rx 7.5-325] Melatonin 3 mg PO HS PRN tablet 06/12/17 07/02/17 Rx Insulin Aspart [NovoLOG See Protocol SQ ACHS 07/02/17 07/02/17 History (formulary)] Insulin Degludec [Tresiba 07/02/17 History Flextouch U-100] Omeprazole 20 mg PO DAILY 07/02/17 07/02/17 History Oseltamivir Phosphate [Tamiflu] 30 mg PO DAILY 07/02/17 07/02/17 History Allergies Allergy/AdvReac Type Severity Reaction Status Date / Time No Known Allergies Allergy Verified 07/02/17 07:39 Surgical - Exam Vital Signs Temp Pulse Resp BP Pulse Ox 101.3 F H 104 H 18 110/53 96 07/02/17 00:03 07/02/17 00:03 07/02/17 00:03 07/02/17 00:03 07/02/17 00:03 - General well developed, no pain - Neck no lymphadectomy - Respiratory normal respiratory effort - Abdomen Abdomen: soft, non tender, no organomegaly - Genitourinary testicles non-tender, other (12 [place] [address] catheter in place-draining clear urine) - Rectum Patient refused exam Results - Labs 07/03/17 12:12 07/03/17 04:16 Abnormal Lab Results - Last 24 Hours (Table) 07/01/17 07/02/17 07/02/17 Range/Units 23:45 00:51 16:49 WBC (3.8-10.6) k/uL RBC (4.30-5.90) m/uL Hgb (13.0-17.5) gm/dL Hct (39.0-53.0) % MCHC (31.0-37.0) g/dL RDW (11.5-15.5) % Neutrophils # (1.3-7.7) k/uL Lymphocytes # (1.0-4.8) k/uL Sodium (137-145) mmol/L Carbon Dioxide (22-30) mmol/L BUN (9-20) mg/dL Creatinine (0.66-1.25) mg/dL Glucose (74-99) mg/dL POC Glucose (mg/dL) 207 H (75-99) mg/dL Hemoglobin A1c 6.3 H (4.0-6.0) % Calcium (8.4-10.2) mg/dL Total Bilirubin (0.2-1.3) mg/dL AST (17-59) U/L ALT (21-72) U/L Total Protein (6.3-8.2) g/dL Albumin (3.5-5.0) g/dL Crossmatch See Detail 07/02/17 07/02/17 07/02/17 Range/Units 18:05 18:44 20:42 WBC 14.7 H (3.8-10.6) k/uL RBC 2.56 L (4.30-5.90) m/uL Hgb 7.0 L* (13.0-17.5) gm/dL Hct 22.6 L (39.0-53.0) % MCHC 30.9 L (31.0-37.0) g/dL RDW (11.5-15.5) % Neutrophils # 13.4 H (1.3-7.7) k/uL Lymphocytes # 0.7 L (1.0-4.8) k/uL Sodium (137-145) mmol/L Carbon Dioxide (22-30) mmol/L BUN (9-20) mg/dL Creatinine (0.66-1.25) mg/dL Glucose (74-99) mg/dL POC Glucose (mg/dL) 218 H 200 H (75-99) mg/dL Hemoglobin A1c (4.0-6.0) % Calcium (8.4-10.2) mg/dL Total Bilirubin (0.2-1.3) mg/dL AST (17-59) U/L ALT (21-72) U/L Total Protein (6.3-8.2) g/dL Albumin (3.5-5.0) g/dL Crossmatch 07/03/17 07/03/17 07/03/17 Range/Units 04:16 04:16 07:04 WBC 11.7 H (3.8-10.6) k/uL RBC 3.20 L (4.30-5.90) m/uL Hgb 8.6 L D (13.0-17.5) gm/dL Hct 28.5 L (39.0-53.0) % MCHC 30.0 L (31.0-37.0) g/dL RDW 16.2 H (11.5-15.5) % Neutrophils # 10.3 H (1.3-7.7) k/uL Lymphocytes # 0.8 L (1.0-4.8) k/uL Sodium 130 L (137-145) mmol/L Carbon Dioxide 18 L (22-30) mmol/L BUN 40 H (9-20) mg/dL Creatinine 3.10 H (0.66-1.25) mg/dL Glucose 174 H (74-99) mg/dL POC Glucose (mg/dL) 173 H (75-99) mg/dL Hemoglobin A1c (4.0-6.0) % Calcium 8.0 L (8.4-10.2) mg/dL Total Bilirubin 1.9 H (0.2-1.3) mg/dL AST 158 H (17-59) U/L ALT 106 H (21-72) U/L Total Protein 5.6 L (6.3-8.2) g/dL Albumin 2.4 L (3.5-5.0) g/dL Crossmatch 07/03/17 Range/Units 12:18 WBC (3.8-10.6) k/uL RBC (4.30-5.90) m/uL Hgb (13.0-17.5) gm/dL Hct (39.0-53.0) % MCHC (31.0-37.0) g/dL RDW (11.5-15.5) % Neutrophils # (1.3-7.7) k/uL Lymphocytes # (1.0-4.8) k/uL Sodium (137-145) mmol/L Carbon Dioxide (22-30) mmol/L BUN (9-20) mg/dL Creatinine (0.66-1.25) mg/dL Glucose (74-99) mg/dL POC Glucose (mg/dL) 172 H (75-99) mg/dL Hemoglobin A1c (4.0-6.0) % Calcium (8.4-10.2) mg/dL Total Bilirubin (0.2-1.3) mg/dL AST (17-59) U/L ALT (21-72) U/L Total Protein (6.3-8.2) g/dL Albumin (3.5-5.0) g/dL Crossmatch Microbiology - Last 24 Hours (Table) 07/02/17 00:51 Urine Culture - Preliminary Urine,Catheterized Gram Neg Bacilli 07/02/17 00:51 Blood Culture Gram Stain - Preliminary Blood Blood Culture - Preliminary Presumptive MRSA 07/02/17 00:51 Blood Culture - Final Blood Diabetes panel 07/02/17 07/03/17 Range/Units 00:51 04:16 Sodium 130 L (137-145) mmol/L Potassium 4.6 (3.5-5.1) mmol/L Chloride 101 (98-107) mmol/L Carbon Dioxide 18 L (22-30) mmol/L BUN 40 H (9-20) mg/dL Creatinine 3.10 H (0.66-1.25) mg/dL Glucose 174 H (74-99) mg/dL Hemoglobin A1c 6.3 H (4.0-6.0) % Calcium 8.0 L (8.4-10.2) mg/dL AST 158 H (17-59) U/L ALT 106 H (21-72) U/L Alkaline Phosphatase 70 (38-126) U/L Total Protein 5.6 L (6.3-8.2) g/dL Albumin 2.4 L (3.5-5.0) g/dL Calcium panel 07/03/17 Range/Units 04:16 Calcium 8.0 L (8.4-10.2) mg/dL Phosphorus 4.2 (2.5-4.5) mg/dL Albumin 2.4 L (3.5-5.0) g/dL Pituitary panel 07/03/17 Range/Units 04:16 Sodium 130 L (137-145) mmol/L Potassium 4.6 (3.5-5.1) mmol/L Chloride 101 (98-107) mmol/L Carbon Dioxide 18 L (22-30) mmol/L BUN 40 H (9-20) mg/dL Creatinine 3.10 H (0.66-1.25) mg/dL Glucose 174 H (74-99) mg/dL Calcium 8.0 L (8.4-10.2) mg/dL Adrenal panel 07/03/17 Range/Units 04:16 Sodium 130 L (137-145) mmol/L Potassium 4.6 (3.5-5.1) mmol/L Chloride 101 (98-107) mmol/L Carbon Dioxide 18 L (22-30) mmol/L BUN 40 H (9-20) mg/dL Creatinine 3.10 H (0.66-1.25) mg/dL Glucose 174 H (74-99) mg/dL Calcium 8.0 L (8.4-10.2) mg/dL Total Bilirubin 1.9 H (0.2-1.3) mg/dL AST 158 H (17-59) U/L ALT 106 H (21-72) U/L Alkaline Phosphatase 70 (38-126) U/L Total Protein 5.6 L (6.3-8.2) g/dL Albumin 2.4 L (3.5-5.0) g/dL Assessment and Plan (1) Prostate cancer Narrative/Plan: Metastatic prostate cancer with extension into anterior rectal wall which has resulting in rectal bleeding. The patient will be started on androgen deprivation therapy with a combination of bicalutamide and leuprolide. The patient will begin palliative radiation therapy to the rectum and prostate later this week. Current Visit: Yes Status: Acute Priority: High Code(s): C61 - MALIGNANT NEOPLASM OF PROSTATE SNOMED Code(s): 813100321 (2) Urethral stricture unspecified Narrative/Plan: Urinary retention with urethral stricture. It's unclear whether the stricture or prostate cancer is the cause for the patient's urinary retention. Patient did have a stricture with a false passage which made placement of a catheter difficult in April but apparently Dr. Bridges had no difficulty placing a catheter in May. The catheter will be left in place for the time being but will most likely be changed within the next week or two. Current Visit: No Status: Acute Code(s): N35.9 - URETHRAL STRICTURE, UNSPECIFIED SNOMED Code(s): 58751574
[2017-07-03] MEDS ORDERED: VANCOMYCIN 1,750 MG in SODIUM CHLORIDE 0.9% 250 ML IVPB SCH (16:00)
[2017-07-03 17:52] LABS: Glucose,Whole Blood 181 mg/dL (75-99)
[2017-07-03 18:14] LABS: Anisocytosis Slight; HCT 28.7 % (39.0-53.0); HGB 8.8 gm/dL (13.0-17.5); Hypochromasia Marked; MCH 27.2 pg (25.0-35.0); MCHC 30.9 g/dL (31.0-37.0); Mean Platelet Volume 7.3; Platelet Count 157 k/uL (150-450); Poikilocytosis Slight; RBC 3.26 m/uL (4.30-5.90); RDW 16.7 % (11.5-15.5); WBC 12.2 k/uL (3.8-10.6)
[2017-07-03 21:04] LABS: Glucose,Whole Blood 176 mg/dL (75-99)
[2017-07-03] MEDS: ATORVASTATIN 20 MG TAB PO SCH (21:08)
[2017-07-03] MEDS ORDERED: DAPTOmycin IN 0.9% NACL 500 MG/10 ML SYRINGE IVP SCH (22:30)
--- NOTE | 2017-07-03 23:06 | CONS ---
CONSULTATION DATE OF SERVICE: 07/03/2017. REASON FOR CONSULTATION: MRSA bacteremia. HISTORY OF PRESENT ILLNESS: The patient is a 51 -year-old male who was admitted back in May. At that time the patient noticed to have a MRSA sepsis thought to be secondary to the urinary source. As the patient did have a positive blood culture on 05/14, and negative on 05/18/2017. The patient did have a urine culture done on May 12 as well as blood culture done and was positive as well. At that time, the patient did have workup including a CT abdominal pelvis which did show some abnormality in the sacral region and prostate. Ultrasound of the prostate was attempted, was nonconclusive of any abscess in the prostate bed area and bone scan completed on May 18 shows areas of increased activity may be secondary to trauma mostly in the left scrotum and coccyx area. The patient finished his treatment for the MRSA bacteremia with Zyvox for 2 weeks. The patient did have colonoscopy for his anemia on 06/06/2017 with the patient to have ulcerated lesion into the infected area. Biopsy confirmed prostate adenocarcinoma with staging PET scan, increased uptake in the liver noted in the pelvis for which the patient was evaluated by Urology as well as Radiation Oncology therapy. The patient has been sent to the ER from the [facility] on July 02 for generalized weakness and a fever and not feeling well. The patient did mention that he still having a fever that he presented to the hospital and no energy. The patient denies having any headache. No URI symptoms. No chest pain. Some shortness of breath. Minimal cough. No abdominal pain. Still complaining of some bleeding per rectum, but no abdominal pain. No nausea, no vomiting. The patient did have a chronic Ramesh catheter, apparently last was changed on June 12 on his last admission and has not been changed since then. He was noticed to have significant positive urine with urine now showing a gram-negative. However, blood culture coming back positive for presumptive MRSA. Hence, ID was consulted for further recommendation regarding antibiotic therapy, for his GI bleed, Gastroenterology has seen the patient who is recommending blood transfusion and watching his hemoglobin closely. REVIEW OF SYSTEMS: Constitutional positive for weakness and fever on admission 101.3, currently 99.8. Eyes no complaint. ENT no complaint. Respiratory no complaint. Cardiovascular no complaint. Genitourinary: As per HPI. Gastrointestinal: As mentioned earlier. MUSCULOSKELETAL: No complaint. INTEGUMENTARY: No complaint. PSYCHOLOGICAL: No complaint. Endocrine no complaint. Neurological no complaint. PAST MEDICAL HISTORY: Atrial fibrillation, coronary artery disease, history of prostate cancer, diabetes mellitus, hypertension, hyperlipidemia, and shingles and MRSA bacteremia. PAST SURGICAL HISTORY: Colonoscopy, polypectomy, cystoscopy, bilateral cataract surgery, EGD and colonoscopy. SOCIAL HISTORY: Remote history of smoking. No drug use. FAMILY HISTORY: Mother with history of breast cancer. ALLERGIES: No known drug allergies. MEDICATIONS WERE: The patient is currently on: [place], Lipitor, Colace, Novolog, melatonin, Lopressor, Levophed, Protonix, Zosyn and vancomycin. EXAMINATION: Blood pressure 124/56 with pulse of 99, temperature of 98. He is 100% on 2 L nasal cannula. General description is an elderly male lying in bed in no distress. No tachypnea or accessory muscle of respiration use. HEENT: Shows slight pallor. No scleral icterus. Oral mucous membranes dry. No pharyngeal erythema or thrush Neck trachea central. No thyromegaly. Lungs unlabored breathing. Clear to auscultation anteriorly. No wheeze or crackle. Heart S1, S2. Regular rate and rhythm. No loud murmur ABDOMEN: Soft, no tenderness. No guarding or rigidity. EXTREMITIES: No edema of feet. Skin examination: No rash or mass palpable. Neurological: Patient is awake, alert, oriented x2. Mood and affect normal. LABS: Hemoglobin is 8.8, white count 12.2 with a BUN of 14, creatinine 3.1 with white count has been normal. Liver enzymes are elevated. Influenza A and B has been negative. Urine showing a gram-negative blood culture presumptive Staph aureus. DIAGNOSTIC IMPRESSION AND PLAN: 1. Patient admitted to the hospital with sepsis in a patient who did have a fever and elevated white count, tachycardia meeting criteria for systemic inflammatory response syndrome/sepsis. The patient's source likely urinary with urine culture currently Growing gram-negative bacilli. The patient also have evidence of a MRSA bacteremia thought to be started with the urinary source with a positive blood urine culture initially on 05/12/2017 with subsequent diagnosis of prostate cancer spreading locally to the rectal area with resulting rectal bleed likely the source is urinary with a question of possible local metastasis to the bony area and subsequent bacterial seeding as well. However the patient blood culture monitor closely and if there's evidence of persistent bacteremia an endovascular source such as endocarditis will need to be ruled out 2. Patient with worsening of his kidney function and high risk of nephrotoxicity from vancomycin use. PLAN: 1. We will discontinue the vancomycin to decrease further risk of nephrotoxicity and renal failure 2. Will start the patient on Daptomycin 6 mg/kg every 48 hours. 3. As for the source of the bacteremia, we will be discussing with Cardiology to obtain an echocardiogram to make sure there is no sign of vegetation. We will also obtain a WBC scan which is concentrated in the specific area that will be followed by further imaging studies. 4. His kidney function as well as blood culture will need to monitor closely 5. We will follow up on his clinical condition and further adjust medication if needed. Thank you for this consultation. We will follow this patient along with you. MMODL / IJN: [id number] / MTDD
[2017-07-04 00:44] LABS: Anisocytosis Slight; HCT 28.1 % (39.0-53.0); HGB 8.9 gm/dL (13.0-17.5); Hypochromasia Moderate; MCH 27.2 pg (25.0-35.0); MCHC 31.5 g/dL (31.0-37.0); MCV 86.5 fL (80.0-100.0); Mean Platelet Volume 7.3; Platelet Count 165 k/uL (150-450); Poikilocytosis Slight; RBC 3.25 m/uL (4.30-5.90); RDW 16.6 % (11.5-15.5); WBC 11.8 k/uL (3.8-10.6)
[2017-07-04 04:03] LABS: Anisocytosis Slight; HCT 28.6 % (39.0-53.0); HGB 8.8 gm/dL (13.0-17.5); Hypochromasia Marked; MCH 26.7 pg (25.0-35.0); MCHC 30.8 g/dL (31.0-37.0); MCV 86.5 fL (80.0-100.0); Mean Platelet Volume 7.5; Platelet Count 160 k/uL (150-450); Poikilocytosis Slight; RBC 3.31 m/uL (4.30-5.90); RDW 16.5 % (11.5-15.5); WBC 11.6 k/uL (3.8-10.6)
[2017-07-04 04:22] LABS: Albumin 2.1 g/dL (3.5-5.0); Calcium 8.1 mg/dL (8.4-10.2); Magnesium 1.9 mg/dL (1.6-2.3); Total Bilirubin 0.7 mg/dL (0.2-1.3); Total Protein 5.3 g/dL (6.3-8.2)
[2017-07-04 07:02] LABS: Glucose,Whole Blood 159 mg/dL (75-99)
[2017-07-04] MEDS: INSULIN ASPART 100 UNIT/ML 1 ML 10 ML VIAL SQ SCH ×4 (07:06→20:53)
--- NOTE | 2017-07-04 07:35 | P.CONS ---
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 He has a history of bladder outlet obstruction, and recently was required to use a Ramesh catheter instead a straight catheter. He was initially admitted to the hospital in early May with urosepsis. He was found to have a low hemoglobin and complaining of weakness at the time, but initially refused endoscopy. CT of the abdomen and pelvis performed on May 17 revealed a 1.4 cm right hepatic lobe lesion, as well as a 4.2 cm thickening of the distal rectum on the right, as well as right prostate gland asymmetry causing deviation leftward of the Ramesh. The patient was subsequently readmitted in late May, secondary to weakness and rectal bleeding. On June 04, the patient underwent an upper EGD which was unremarkable, colonoscopy however revealed a friable rectal mass contiguous with the anal canal. Biopsy of this mass revealed prostate adenocarcinoma directly invading rectal mucosa. The patient's PSA was found to be 51 at this time. The patient was assessed by Dr. Mcallister, and recommended to undergo outpatient PET-CT. this was performed on June 23 revealing abnormal uptake in the right hepatic lobe lesion, as well as increased uptake in the prostate with extension directly through the rectum, and the right pubic ramus. In the past 2 days, the patient was again hospitalized for urosepsis. He has been admitted to the ICU, and has required pressor support. The patient does report a sensation of rectal pressure, but denies pain. He notes that he has had to take laxatives to pass bowel movements, otherwise they become obstructed. He has noticed bright red blood in the stool recently, and has even notice some leakage of blood without his control. Review of Systems Constitutional: Reports fever Eyes: denies blurred vision Ears: deny: decreased hearing Cardiovascular: Reports leg edema, Denies chest pain Respiratory: Denies cough Gastrointestinal: Denies abdominal pain Genitourinary: Reports as per HPI Musculoskeletal: Denies myalgias Neurological: Denies aphasia, Denies paresthesias Past Medical History Past Medical History: Atrial Fibrillation, Coronary Artery Disease (CAD), Cancer (prostate adenocarcinoma ), Diabetes Mellitus, Hyperlipidemia, Hypertension, Prostate Disorder Additional Past Medical History / Comment(s): SHINGLES 3 YEARS AGO History of Any Multi-Drug Resistant Organisms: MRSA Year Discovered:: 05/16/17 MDRO Source:: BLOOD,URINE Past Surgical History: No Surgical Hx Reported Additional Past Surgical History / Comment(s): SELENE CATARACTS, COLONOSCOPY/ POLYPECTOMY(BENIGN), orthopedic surgery when he was a child, cystoscopy last year Past Anesthesia/Blood Transfusion Reactions: No Reported Reaction Past Psychological History: No Psychological Hx Reported Smoking Status: Former smoker (quit 40 years ago, smoked 20 pack years) Past Alcohol Use History: None Reported Past Drug Use History: None Reported - Past Family History Father Family Medical History: Cancer Mother Family Medical History: Cancer Additional Family Medical History / Comment(s): BREAST CANCER Medications and Allergies Home Medications Medication Instructions Recorded Confirmed Type Metoprolol Tartrate [Lopressor] 50 mg PO BID #60 tab 05/31/16 07/02/17 Rx Atorvastatin [Lipitor] 20 mg PO HS 05/13/17 07/02/17 History Furosemide [Lasix] 20 mg PO BID 05/13/17 07/02/17 History amLODIPine BESYLATE [Norvasc] 5 mg PO DAILY 05/13/17 07/02/17 History Polyethylene Glycol 3350 [Miralax] 17 gm PO DAILY powd.pack 05/22/17 07/02/17 Rx Docusate [Colace] 100 mg PO BID cap 06/12/17 07/02/17 Rx HYDROcodone/APAP 7.5-325MG [[place] 1 tab PO Q8HR PRN #30 tab 06/12/17 07/02/17 Rx 7.5-325] Melatonin 3 mg PO HS PRN tablet 06/12/17 07/02/17 Rx Insulin Aspart [NovoLOG See Protocol SQ ACHS 07/02/17 07/02/17 History (formulary)] Insulin Degludec [Tresiba 07/02/17 History Flextouch U-100] Omeprazole 20 mg PO DAILY 07/02/17 07/02/17 History Oseltamivir Phosphate [Tamiflu] 30 mg PO DAILY 07/02/17 07/02/17 History Allergies Allergy/AdvReac Type Severity Reaction Status Date / Time No Known Allergies Allergy Verified 07/02/17 07:39 Physical Exam Vitals: Vital Signs Temp Pulse Resp BP Pulse Ox 07/04/17 07:00 117 H 23 107/56 99 07/04/17 06:00 113 H 21 106/57 99 07/04/17 05:00 103 H 19 104/58 99 07/04/17 04:00 98.1 F 99 21 114/56 100 07/04/17 03:00 105 H 18 104/57 98 07/04/17 02:00 103 H 19 105/57 100 07/04/17 01:00 101 H 19 104/53 100 07/04/17 00:00 98.3 F 112 H 23 104/58 100 07/03/17 23:00 104 H 20 106/60 100 07/03/17 22:00 90 22 103/58 99 07/03/17 21:00 103 H 20 115/58 100 07/03/17 20:00 97.9 F 109 H 22 99/57 100 07/03/17 19:00 99 19 112/56 100 07/03/17 18:00 104 H 20 100/58 99 07/03/17 17:00 108 H 22 110/54 99 07/03/17 16:00 108 H 21 107/61 99 07/03/17 15:00 107 H 22 93/57 99 07/03/17 14:00 104 H 21 108/57 100 07/03/17 13:00 113 H 18 104/55 100 07/03/17 12:00 99.8 F H 101 H 19 108/59 99 07/03/17 11:00 100 21 100/59 98 07/03/17 10:00 106 H 21 94/50 97 07/03/17 09:00 101 H 18 92/55 98 07/03/17 08:00 98.4 F 105 H 20 129/71 97 Intake and Output 07/03/17 07/04/17 07/04/17 22:59 06:59 14:59 Intake Total 465.0 487.5 50 Output Total 308 279 40 Balance 157.0 208.5 10 Intake: IV 435.0 487.5 50 DAPTOmycin 650 mg In 50 Sodium Chloride 0.9% 50 ml @ 100 mls/hr IV Q48H [facility] Rx#:[id number] Piperacillin-Tazobactam 3 25.0 37.5 .375 gm In Dextrose/Water 1 50ml.bag @ 12.5 mls/hr IVPB Q12HR [facility] Rx#: [id number] Sodium Chloride 0.9% 1, 410 400 50 000 ml @ 50 mls/hr IV . Q20H [facility] Rx#:[id number] Oral 30 Output: Urine 308 279 40 Other: Voiding Method Indwelling Catheter Indwelling Catheter # Bowel Movements 1 Weight 112.8 kg - Constitutional General appearance: obese - EENT Eyes: EOMI, PERRLA ENT: no hard of hearing - Neck Neck: no lymphadenopathy - Respiratory Respiratory: right: CTA, left: diminished - Cardiovascular Rhythm: regular Heart sounds: normal: S1, S2 - Gastrointestinal General gastrointestinal: no organomegaly, no tenderness - Neurologic Neurologic: CNII-XII intact - Musculoskeletal could not assess - Psychiatric Psychiatric: A&O x's 3, appropriate affect Results CBC & Chem 7: 07/04/17 03:45 07/04/17 03:45 Labs: Abnormal Lab Results - Last 24 Hours (Table) 07/03/17 07/03/17 07/03/17 Range/Units 12:12 12:18 17:50 WBC 12.6 H (3.8-10.6) k/uL RBC 3.21 L (4.30-5.90) m/uL Hgb 8.7 L (13.0-17.5) gm/dL Hct 27.7 L (39.0-53.0) % MCHC (31.0-37.0) g/dL RDW 15.6 H (11.5-15.5) % Sodium (137-145) mmol/L Carbon Dioxide (22-30) mmol/L BUN (9-20) mg/dL Creatinine (0.66-1.25) mg/dL Glucose (74-99) mg/dL POC Glucose (mg/dL) 172 H 181 H (75-99) mg/dL Calcium (8.4-10.2) mg/dL AST (17-59) U/L ALT (21-72) U/L Total Protein (6.3-8.2) g/dL Albumin (3.5-5.0) g/dL 07/03/17 07/03/17 07/04/17 Range/Units 17:58 21:02 00:33 WBC 12.2 H 11.8 H (3.8-10.6) k/uL RBC 3.26 L 3.25 L (4.30-5.90) m/uL Hgb 8.8 L 8.9 L (13.0-17.5) gm/dL Hct 28.7 L 28.1 L (39.0-53.0) % MCHC 30.9 L (31.0-37.0) g/dL RDW 16.7 H 16.6 H (11.5-15.5) % Sodium (137-145) mmol/L Carbon Dioxide (22-30) mmol/L BUN (9-20) mg/dL Creatinine (0.66-1.25) mg/dL Glucose (74-99) mg/dL POC Glucose (mg/dL) 176 H (75-99) mg/dL Calcium (8.4-10.2) mg/dL AST (17-59) U/L ALT (21-72) U/L Total Protein (6.3-8.2) g/dL Albumin (3.5-5.0) g/dL 07/04/17 07/04/17 07/04/17 Range/Units 03:45 03:45 06:59 WBC 11.6 H (3.8-10.6) k/uL RBC 3.31 L (4.30-5.90) m/uL Hgb 8.8 L (13.0-17.5) gm/dL Hct 28.6 L (39.0-53.0) % MCHC 30.8 L (31.0-37.0) g/dL RDW 16.5 H (11.5-15.5) % Sodium 132 L (137-145) mmol/L Carbon Dioxide 19 L (22-30) mmol/L BUN 43 H (9-20) mg/dL Creatinine 2.99 H (0.66-1.25) mg/dL Glucose 154 H (74-99) mg/dL POC Glucose (mg/dL) 159 H (75-99) mg/dL Calcium 8.1 L (8.4-10.2) mg/dL AST 62 H (17-59) U/L ALT 83 H (21-72) U/L Total Protein 5.3 L (6.3-8.2) g/dL Albumin 2.1 L (3.5-5.0) g/dL Microbiology - Last 24 Hours (Table) 07/02/17 00:51 Blood Culture Gram Stain - Final Blood Blood Culture - Final Methicillin resist S. aureus 07/02/17 00:51 Urine Culture - Preliminary Urine,Catheterized Gram Neg Bacilli Chest x-ray: report reviewed CT scan - abdomen: report reviewed, image reviewed CT scan - pelvis: report reviewed, image reviewed Assessment and Plan Plan: 1. Rectal bleeding 2/2 local extension from prostate adenocarcinoma: I discussed with the patient, that I felt he would benefit from a course of palliative radiotherapy. According to the patient, he has not yet been started on androgen deprivation, and I recommended he undergo this as well. According to the patient's PET/CT, he likely has a liver metastasis in addition to his locally aggressive prostate cancer. I explained to the patient, that a short course of radiotherapy may decrease his rectal bleeding and improve his obstructive symptoms. I discussed with the patient, that once he is transferred out of the ICU, he would undergo CT simulation for treatment planning. Treatment will be delivered in approximately 4-5 doses. I discussed potential side effects of this treatment which include, but are not limited to; fatigue, skin erythema, irritative symptoms of the bladder and rectum and low risk of long-term toxicity. The patient did express interest in undergoing this course of treatment, as he does find his rectal symptoms distressing. Time with Patient: Greater than 30
--- NOTE | 2017-07-04 07:49 | XR ---
EXAMINATION TYPE: XR chest 1V portable DATE OF EXAM: 07/04/2017 COMPARISON: Prior chest x-ray 07/02/2017 HISTORY: Fluid overload TECHNIQUE: Single frontal view of the chest is obtained. FINDINGS: Heart is enlarged. Interstitium and central vascularity are prominent. Left hemidiaphragm is obscured. No evident pneumothorax. Aorta is dense. IMPRESSION: Findings suggest volume overload, congestive heart failure. There may be left lower lobe atelectasis versus edema or pneumonia and associated effusion, follow-up is recommended.
[2017-07-04] MEDS: PANTOPRAZOLE 40 MG/10 ML VIAL IVP SCH (09:22)
[2017-07-04] MEDS: PIPERACILLIN-TAZOBACTAM 3.375 GM in DEXTROSE/WATER 1 50ML.BAG IVPB SCH ×2 (09:22→20:53)
[2017-07-04] MEDS: BICALUTAMIDE 50 MG TAB PO SCH ×2 (09:22→20:53)
[2017-07-04] MEDS: METOPROLOL TARTRATE 50 MG TAB PO SCH ×3 (09:23→21:01)
--- NOTE | 2017-07-04 09:59 | P.PN ---
Subjective Progress Note Date: 07/04/17 Principal diagnosis: Rectal bleeding from prostate adenocarcinoma invading the rectum. This is a pleasant 81-year-old gentleman who resides at an extended care facility who has a history of coronary artery disease, paroxysmal atrial fibrillation, diabetes mellitus, hyperlipidemia, hypertension, shingles, MRSA infection in the blood and urine. 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 A recent PET scan revealed large hypermetabolic lesion presumed right-sided prostatic carcinoma there is also evidence of extra Chiller extension into the rectum and into the right pelvis causing osseous destruction of medial right MP a pelvic ramus near pubic symphysis. There is metastatic lesion to the liver as well. Patient was readmitted yesterday with fever and generalized weakness. Gentleman admitted to the regular medical floor with suspected urinary tract infection and sepsis. Last evening he developed bright red bleeding from the rectum approximately 50 MLS. He did have a drop in his systolic blood pressure into the 70s and 80s. His hemoglobin was 7.0. He was transferred here to the intensive care unit. He did not require any pressors. Did receive 2 units of packed red blood cells in his current hemoglobin is 8.6. White count 11.7. Creatinine 3.10. AST 158, ALT 106 Blood cultures are revealing presumptive MRSA. His chest x-ray shows mild fluid volume overload with small effusions. He is maintaining O2 saturations in the upper 90s on 2 L/m per nasal cannula. The patient is seen again today 07/04/2017 in follow-up in the intensive care unit. He is oncology overflow patient. He is awake and alert in no acute distress. He's had no further significant rectal bleeding. Hemoglobin 8.8. He has remained hemodynamically stable. Not requiring any pressors. He is found to have MRSA bacteria anemia and gram-negative bacilli in the urine. ID is on the case. He remains on daptomycin and Zosyn. His chest x-ray continues to show evidence of fluid volume overload. He is maintaining O2 saturations in the high 90s on 2 L/m per nasal cannula. He remains in atrial fibrillation with varying ventricular response. Currently off anticoagulants. 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 The plan is to undergo CT simulation and delivery of approximately 4-5 doses. Objective - Vital Signs Vital signs: Vital Signs Temp 98.8 F 07/04/17 08:00 Pulse 110 H 07/04/17 09:00 Resp 18 07/04/17 09:00 BP 103/56 07/04/17 09:00 Pulse Ox 98 07/04/17 09:00 Intake & Output 07/03/17 07/04/17 07/04/17 18:59 06:59 18:59 Intake Total 850.0 752.5 150 Output Total 515 407 115 Balance 335.0 345.5 35 Weight 112.8 kg Intake: IV 700 722.5 150 DAPTOmycin 650 mg In 50 100 Sodium Chloride 0.9% 50 ml @ 100 mls/hr IV Q48H [facility] Rx#:[id number] Piperacillin-Tazobactam 3 62.5 .375 gm In Dextrose/Water 1 50ml.bag @ 12.5 mls/hr IVPB Q12HR [facility] Rx#: [id number] Sodium Chloride 0.9% 1, 700 610 50 000 ml @ 50 mls/hr IV . Q20H [facility] Rx#:[id number] Intake, IV Titration 50.0 Amount Piperacillin-Tazobactam 3 50.0 .375 gm In Dextrose/Water 1 50ml.bag @ 12.5 mls/hr IVPB Q8HR [facility] Rx#: [id number] Oral 100 30 Output: Urine 515 407 115 Other: Voiding Method Indwelling Catheter Indwelling Catheter Indwelling Catheter # Bowel Movements 1 - Exam GENERAL EXAM: Alert, fairly comfortable in no apparent distress. HEAD: Normocephalic. EYES: Normal reaction of pupils, equal size. NOSE: Clear with pink turbinates. THROAT: No erythema or exudates. NECK: No masses, no JVD. CHEST: No chest wall deformity. LUNGS: Equal air entry with crackles posterior bases. CVS: S1 and S2 normal with no audible murmur, irregular rhythm. ABDOMEN: No hepatosplenomegaly, normal bowel sounds, no guarding or rigidity. SPINE: No scoliosis or deformity SKIN: No rashes CENTRAL NERVOUS SYSTEM: No focal deficits, tone is normal in all 4 extremities. EXTREMITIES: There is no peripheral edema. No clubbing, no cyanosis. Peripheral pulses are intact. - Labs CBC & Chem 7: 07/04/17 03:45 07/04/17 03:45 Labs: Abnormal Lab Results - Last 24 Hours (Table) 07/03/17 07/03/17 07/03/17 Range/Units 12:12 12:18 17:50 WBC 12.6 H (3.8-10.6) k/uL RBC 3.21 L (4.30-5.90) m/uL Hgb 8.7 L (13.0-17.5) gm/dL Hct 27.7 L (39.0-53.0) % MCHC (31.0-37.0) g/dL RDW 15.6 H (11.5-15.5) % Sodium (137-145) mmol/L Carbon Dioxide (22-30) mmol/L BUN (9-20) mg/dL Creatinine (0.66-1.25) mg/dL Glucose (74-99) mg/dL POC Glucose (mg/dL) 172 H 181 H (75-99) mg/dL Calcium (8.4-10.2) mg/dL AST (17-59) U/L ALT (21-72) U/L Total Protein (6.3-8.2) g/dL Albumin (3.5-5.0) g/dL 07/03/17 07/03/17 07/04/17 Range/Units 17:58 21:02 00:33 WBC 12.2 H 11.8 H (3.8-10.6) k/uL RBC 3.26 L 3.25 L (4.30-5.90) m/uL Hgb 8.8 L 8.9 L (13.0-17.5) gm/dL Hct 28.7 L 28.1 L (39.0-53.0) % MCHC 30.9 L (31.0-37.0) g/dL RDW 16.7 H 16.6 H (11.5-15.5) % Sodium (137-145) mmol/L Carbon Dioxide (22-30) mmol/L BUN (9-20) mg/dL Creatinine (0.66-1.25) mg/dL Glucose (74-99) mg/dL POC Glucose (mg/dL) 176 H (75-99) mg/dL Calcium (8.4-10.2) mg/dL AST (17-59) U/L ALT (21-72) U/L Total Protein (6.3-8.2) g/dL Albumin (3.5-5.0) g/dL 07/04/17 07/04/17 07/04/17 Range/Units 03:45 03:45 06:59 WBC 11.6 H (3.8-10.6) k/uL RBC 3.31 L (4.30-5.90) m/uL Hgb 8.8 L (13.0-17.5) gm/dL Hct 28.6 L (39.0-53.0) % MCHC 30.8 L (31.0-37.0) g/dL RDW 16.5 H (11.5-15.5) % Sodium 132 L (137-145) mmol/L Carbon Dioxide 19 L (22-30) mmol/L BUN 43 H (9-20) mg/dL Creatinine 2.99 H (0.66-1.25) mg/dL Glucose 154 H (74-99) mg/dL POC Glucose (mg/dL) 159 H (75-99) mg/dL Calcium 8.1 L (8.4-10.2) mg/dL AST 62 H (17-59) U/L ALT 83 H (21-72) U/L Total Protein 5.3 L (6.3-8.2) g/dL Albumin 2.1 L (3.5-5.0) g/dL Microbiology - Last 24 Hours (Table) 07/02/17 00:51 Blood Culture Gram Stain - Final Blood Blood Culture - Final Methicillin resist S. aureus 07/02/17 00:51 Urine Culture - Preliminary Urine,Catheterized Gram Neg Bacilli Assessment and Plan Assessment: Impression: #1 Acute rectal bleeding secondary to invading prostate mass. Status post 2 units of packed red blood cell infusions. Current hemoglobin 8.8. #2 Large hypermetabolic lesion of right-sided prostatic carcinoma with evidence of extra capsular extension into the rectum and into the right pelvis causing osseous distraction of medial right inferior pelvic ramus near pubic symphysis. Metastatic lesion to the liver. #3 Sepsis secondary to MRSA bacteremia. #4 Acute on chronic renal failure, current creatinine 2.99. #5 Elevated liver enzymes with metastatic liver lesion. #6 Paroxysmal atrial fibrillation. #7 Coronary artery disease. #8 Diabetes mellitus. #9 Hyperlipidemia. #10 Hypertension. #11 History of shingles. #12 senior care resident. Plan: The patient was seen and evaluated by Dr. Barrow. His chest x-ray and labs were reviewed. We'll go ahead and give an additional Lasix 40 mg IV push times one dose. Decrease IV fluids to 20 MLS per hour. Continue to monitor hemoglobin. We'll transfer the patient out of the intensive care unit today. The plan is for CT simulation and radiation to the invading prostate adenocarcinoma to the rectum. Overall prognosis is quite poor and the multiple comorbidities and metastatic prostate cancer. We'll continue to follow and make further recommendations based on his clinical status. I, the cosigning physician, have performed a history and physical examination on the patient. Lung sounds have crackles in the bilateral posterior bases.. Maintaining good O2 saturations in the 90s on 2 L/m per nasal cannula. I have discussed the assessment and plan of care with my nurse practitioner, Karmen Seo. I attest the above documented note as dictated by her. Time with Patient: Greater than 30
[2017-07-04] MEDS ORDERED: FUROSEMIDE 10 MG/ML 4 ML VIAL IV STA (10:03)
[2017-07-04] MEDS: SODIUM CHLORIDE 0.9% 1,000 ML IV SCH ×2 (10:08→10:18)
--- NOTE | 2017-07-04 10:42 | P.PN ---
Subjective Progress Note Date: 07/04/17 The patient is in the hospital with a rectal bleed. This is due to carcinoma the prostate invading the anterior rectal wall. started him on bicalutamide and leuprolide. His urine is clear. His vital signs are stable. He is resting comfortably. He will get radiation in the near future. Objective - Vital Signs Vital signs: Vital Signs Temp 98.8 F 07/04/17 08:00 Pulse 112 H 07/04/17 10:00 Resp 19 07/04/17 10:00 BP 111/65 07/04/17 10:00 Pulse Ox 98 07/04/17 10:00 Intake & Output 07/03/17 07/04/17 07/04/17 18:59 06:59 18:59 Intake Total 850.0 752.5 200 Output Total 515 407 145 Balance 335.0 345.5 55 Weight 112.8 kg Intake: IV 700 722.5 200 DAPTOmycin 650 mg In 50 150 Sodium Chloride 0.9% 50 ml @ 100 mls/hr IV Q48H [facility] Rx#:[id number] Piperacillin-Tazobactam 3 62.5 .375 gm In Dextrose/Water 1 50ml.bag @ 12.5 mls/hr IVPB Q12HR [facility] Rx#: [id number] Sodium Chloride 0.9% 1, 700 610 50 000 ml @ 20 mls/hr IV . Q24H [facility] Rx#:[id number] Intake, IV Titration 50.0 Amount Piperacillin-Tazobactam 3 50.0 .375 gm In Dextrose/Water 1 50ml.bag @ 12.5 mls/hr IVPB Q8HR [facility] Rx#: [id number] Oral 100 30 Output: Urine 515 407 145 Other: Voiding Method Indwelling Catheter Indwelling Catheter Indwelling Catheter # Bowel Movements 1 - Labs CBC & Chem 7: 07/04/17 03:45 07/04/17 03:45 Labs: Abnormal Lab Results - Last 24 Hours (Table) 07/03/17 07/03/17 07/03/17 Range/Units 12:12 12:18 17:50 WBC 12.6 H (3.8-10.6) k/uL RBC 3.21 L (4.30-5.90) m/uL Hgb 8.7 L (13.0-17.5) gm/dL Hct 27.7 L (39.0-53.0) % MCHC (31.0-37.0) g/dL RDW 15.6 H (11.5-15.5) % Sodium (137-145) mmol/L Carbon Dioxide (22-30) mmol/L BUN (9-20) mg/dL Creatinine (0.66-1.25) mg/dL Glucose (74-99) mg/dL POC Glucose (mg/dL) 172 H 181 H (75-99) mg/dL Calcium (8.4-10.2) mg/dL AST (17-59) U/L ALT (21-72) U/L Total Protein (6.3-8.2) g/dL Albumin (3.5-5.0) g/dL 07/03/17 07/03/17 07/04/17 Range/Units 17:58 21:02 00:33 WBC 12.2 H 11.8 H (3.8-10.6) k/uL RBC 3.26 L 3.25 L (4.30-5.90) m/uL Hgb 8.8 L 8.9 L (13.0-17.5) gm/dL Hct 28.7 L 28.1 L (39.0-53.0) % MCHC 30.9 L (31.0-37.0) g/dL RDW 16.7 H 16.6 H (11.5-15.5) % Sodium (137-145) mmol/L Carbon Dioxide (22-30) mmol/L BUN (9-20) mg/dL Creatinine (0.66-1.25) mg/dL Glucose (74-99) mg/dL POC Glucose (mg/dL) 176 H (75-99) mg/dL Calcium (8.4-10.2) mg/dL AST (17-59) U/L ALT (21-72) U/L Total Protein (6.3-8.2) g/dL Albumin (3.5-5.0) g/dL 07/04/17 07/04/17 07/04/17 Range/Units 03:45 03:45 06:59 WBC 11.6 H (3.8-10.6) k/uL RBC 3.31 L (4.30-5.90) m/uL Hgb 8.8 L (13.0-17.5) gm/dL Hct 28.6 L (39.0-53.0) % MCHC 30.8 L (31.0-37.0) g/dL RDW 16.5 H (11.5-15.5) % Sodium 132 L (137-145) mmol/L Carbon Dioxide 19 L (22-30) mmol/L BUN 43 H (9-20) mg/dL Creatinine 2.99 H (0.66-1.25) mg/dL Glucose 154 H (74-99) mg/dL POC Glucose (mg/dL) 159 H (75-99) mg/dL Calcium 8.1 L (8.4-10.2) mg/dL AST 62 H (17-59) U/L ALT 83 H (21-72) U/L Total Protein 5.3 L (6.3-8.2) g/dL Albumin 2.1 L (3.5-5.0) g/dL Microbiology - Last 24 Hours (Table) 07/02/17 00:51 Urine Culture - Final Urine,Catheterized Pseudomonas aeruginosa 07/02/17 00:51 Blood Culture Gram Stain - Final Blood Blood Culture - Final Methicillin resist S. aureus
[2017-07-04 11:59] LABS: Glucose,Whole Blood 183 mg/dL (75-99)
--- NOTE | 2017-07-04 12:21 | P.PN ---
Subjective Progress Note Date: 07/04/17 Principal diagnosis: A. FIB This is a pleasant 81-year-old gentleman who sees Dr. VC Carrion in the office as an outpatient with a past medical history significant for paroxysmal atrial fibrillation as well as prostate cancer who was admitted initially to the fourth floor and was transferred to the intensive care unit because of rectal bleeding. The patient bled significantly from the rectum was bright red blood. 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 He is under the care of Dr. Mcallister at this point. His hemoglobin dropped and the patient received 2 units of packed RBC. The hemoglobin was 7 and increased to 8.6 after the blood transfusion. We get involved in the care of the patient because he is in A. fib with heart rate between 100 to 110 beats per minutes. The pressure has been marginally low. Currently the patient is on metoprolol for heart rate control and he was receiving oral anticoagulation but that was stopped. Clinically the patient denies having any chest pain or discomfort or difficulty breathing or heart racing or fluttering feeling at this point. Overall he is weak. The patient was here in May 2017 and at that point he underwent an echocardiogram which revealed normal LV function without significant valvular abnormalities I'll follow-up with the patient today, he continues to feel weak and tired and overall not doing well. In terms of heart rate he is in A. fib with heart rates about 110 beats per minutes. I'm going to increase the dose of metoprolol to 50 mg by mouth 3 times a day. Objective - Vital Signs Vital signs: Vital Signs Temp 98.8 F 07/04/17 08:00 Pulse 100 07/04/17 11:00 Resp 20 07/04/17 11:00 BP 116/63 07/04/17 11:00 Pulse Ox 99 07/04/17 11:00 Intake & Output 07/03/17 07/04/17 07/04/17 18:59 06:59 18:59 Intake Total 850.0 752.5 240 Output Total 515 407 250 Balance 335.0 345.5 -10 Weight 112.8 kg Intake: IV 700 722.5 240 DAPTOmycin 650 mg In 50 Sodium Chloride 0.9% 50 ml @ 100 mls/hr IV Q48H [facility] Rx#:[id number] Piperacillin-Tazobactam 3 62.5 .375 gm In Dextrose/Water 1 50ml.bag @ 12.5 mls/hr IVPB Q12HR [facility] Rx#: [id number] Sodium Chloride 0.9% 1, 700 610 240 000 ml @ 20 mls/hr IV . Q24H [facility] Rx#:[id number] Intake, IV Titration 50.0 Amount Piperacillin-Tazobactam 3 50.0 .375 gm In Dextrose/Water 1 50ml.bag @ 12.5 mls/hr IVPB Q8HR [facility] Rx#: [id number] Oral 100 30 Output: Urine 515 407 250 Other: Voiding Method Indwelling Catheter Indwelling Catheter Indwelling Catheter # Bowel Movements 1 - Constitutional General appearance: Present: no acute distress - Respiratory Respiratory: bilateral: CTA - Cardiovascular Rhythm: irregularly irregular Heart sounds: normal: S1, S2 - Labs CBC & Chem 7: 07/04/17 03:45 07/04/17 03:45 Labs: Abnormal Lab Results - Last 24 Hours (Table) 07/03/17 07/03/17 07/03/17 Range/Units 12:12 12:18 17:50 WBC 12.6 H (3.8-10.6) k/uL RBC 3.21 L (4.30-5.90) m/uL Hgb 8.7 L (13.0-17.5) gm/dL Hct 27.7 L (39.0-53.0) % MCHC (31.0-37.0) g/dL RDW 15.6 H (11.5-15.5) % Sodium (137-145) mmol/L Carbon Dioxide (22-30) mmol/L BUN (9-20) mg/dL Creatinine (0.66-1.25) mg/dL Glucose (74-99) mg/dL POC Glucose (mg/dL) 172 H 181 H (75-99) mg/dL Calcium (8.4-10.2) mg/dL AST (17-59) U/L ALT (21-72) U/L Total Protein (6.3-8.2) g/dL Albumin (3.5-5.0) g/dL 07/03/17 07/03/17 07/04/17 Range/Units 17:58 21:02 00:33 WBC 12.2 H 11.8 H (3.8-10.6) k/uL RBC 3.26 L 3.25 L (4.30-5.90) m/uL Hgb 8.8 L 8.9 L (13.0-17.5) gm/dL Hct 28.7 L 28.1 L (39.0-53.0) % MCHC 30.9 L (31.0-37.0) g/dL RDW 16.7 H 16.6 H (11.5-15.5) % Sodium (137-145) mmol/L Carbon Dioxide (22-30) mmol/L BUN (9-20) mg/dL Creatinine (0.66-1.25) mg/dL Glucose (74-99) mg/dL POC Glucose (mg/dL) 176 H (75-99) mg/dL Calcium (8.4-10.2) mg/dL AST (17-59) U/L ALT (21-72) U/L Total Protein (6.3-8.2) g/dL Albumin (3.5-5.0) g/dL 07/04/17 07/04/17 07/04/17 Range/Units 03:45 03:45 06:59 WBC 11.6 H (3.8-10.6) k/uL RBC 3.31 L (4.30-5.90) m/uL Hgb 8.8 L (13.0-17.5) gm/dL Hct 28.6 L (39.0-53.0) % MCHC 30.8 L (31.0-37.0) g/dL RDW 16.5 H (11.5-15.5) % Sodium 132 L (137-145) mmol/L Carbon Dioxide 19 L (22-30) mmol/L BUN 43 H (9-20) mg/dL Creatinine 2.99 H (0.66-1.25) mg/dL Glucose 154 H (74-99) mg/dL POC Glucose (mg/dL) 159 H (75-99) mg/dL Calcium 8.1 L (8.4-10.2) mg/dL AST 62 H (17-59) U/L ALT 83 H (21-72) U/L Total Protein 5.3 L (6.3-8.2) g/dL Albumin 2.1 L (3.5-5.0) g/dL 07/04/17 Range/Units 11:57 WBC (3.8-10.6) k/uL RBC (4.30-5.90) m/uL Hgb (13.0-17.5) gm/dL Hct (39.0-53.0) % MCHC (31.0-37.0) g/dL RDW (11.5-15.5) % Sodium (137-145) mmol/L Carbon Dioxide (22-30) mmol/L BUN (9-20) mg/dL Creatinine (0.66-1.25) mg/dL Glucose (74-99) mg/dL POC Glucose (mg/dL) 183 H (75-99) mg/dL Calcium (8.4-10.2) mg/dL AST (17-59) U/L ALT (21-72) U/L Total Protein (6.3-8.2) g/dL Albumin (3.5-5.0) g/dL Microbiology - Last 24 Hours (Table) 07/02/17 00:51 Blood Culture Gram Stain - Final Blood Blood Culture - Final Methicillin resist S. aureus 07/02/17 00:51 Urine Culture - Final Urine,Catheterized Pseudomonas aeruginosa Assessment and Plan Assessment: Assessment #1 anemia secondary to rectal bleeding #2 prostate cancer #3 paroxysmal atrial fibrillation #4 generalized fatigue and tiredness #5 multiple comorbid conditions Plan #1 increase the dose of metoprolol to 50 mg by mouth 3 times a day #2 follow-up with the patient
[2017-07-04] MEDS: HYDROmorphone 1 MG/ML 1 ML SYRINGE IVP PRN (12:43)
[2017-07-04] MEDS ORDERED: LEUPROLIDE ACET 7.5 MG SYRINGEKIT IM ONE (13:00)
--- NOTE | 2017-07-04 13:16 | CONS ---
CONSULTATION REASON FOR CONSULT: Renal failure. 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 He has also had acute kidney injury from obstructive uropathy previously with previous creatinine at 10.5 in May of 2017. He follows with Urology and currently has an indwelling Ramesh catheter. On his recent admission, patient was found to have prostatic cancer. There is evidence of metastatic disease as well and plans to start radiation therapy and androgen deprivation therapy as outpatient and this has not been started yet. On this admission, reason for admission was rectal bleeding. The patient is currently stable with no further episodes of bleeding. He has been evaluated by GI. His serum creatinine was 2.0 on initial admission. It went up to 3.1 and now it is at 2.9 mg/dL. Initially patient was hypotensive and required pressors for a very short period of time. He has had good urine output and 24-hour urine output at about 922 mL. PAST MEDICAL HISTORY: Recent diagnosis of prostatic cancer. Plan for chemotherapy and radiation therapy as outpatient not started yet. Atrial fibrillation, coronary artery disease, CKD stage 3B to 4, history of obstructive uropathy and urine retention, currently with chronic indwelling Ramesh catheter, type 2 diabetes, hyperlipidemia, hypertension, history of shingles, history of MRSA infection. PAST SURGICAL HISTORY: Cataracts, colonoscopy, cystoscopy and biopsy. SOCIAL HISTORY: Patient is a former smoker. No history of drug abuse or alcohol abuse. MEDICATIONS: Medications at home prior to admission included Lopressor, Lipitor, Lasix, Norvasc, MiraLAX, Colace, [place], melatonin, insulin, and omeprazole. ALLERGIES: None. PHYSICAL EXAMINATION: On examination, patient is comfortable, awake. He is not in any acute distress. Blood pressure is 116/64, heart rate 101 per minute. He is afebrile. EXAMINATION OF THE HEART: S1, S2. EXAMINATION OF THE LUNGS: Bilateral breath sounds are heard. Abdomen is soft, nontender. Examination of the lower extremities shows edema 1+ bilaterally with chronic skin changes and chronic edema. [employer] exam is grossly intact. Patient moving all 4 extremities. LAB: Labs show sodium 132, potassium 4.0, serum creatinine is 2.9. Hemoglobin 8.8 g/dL. Magnesium 1.9, phosphorus 4.0. ASSESSMENT: 1. Acute kidney injury secondary to hypotension. Currently nonoliguric with good urine output. No evidence of obstructive uropathy. The patient is not on any IV fluids. His blood pressure is not low. He is encouraged to increase his oral intake and continue with indwelling Ramesh catheter for now. No nephrotoxic medications on board at this time. 2. Urinary tract infection with urine culture grown Pseudomonas, maintained on Zosyn. 3. Methicillin-resistant Staphylococcus aureus bacteremia, currently being followed by Infectious Disease. Source is unclear. Patient is maintained on daptomycin. He did received vancomycin initially, which is now discontinued. 4. Chronic kidney disease, stage 3B to 4 with serum creatinine baseline at 2.5 to 2 mg/dL. Etiology is nephrosclerosis, possible underlying diabetic nephropathy as well. Patient has had proteinuria. 5. His recent diagnosis of prostatic cancer to be scheduled for radiation therapy and androgen deprivation therapy as outpatient. 6. Anemia with history of rectal bleeding, no active bleeding for now. Will start patient on Aranesp. PLAN: Start Aranesp and continue off of IV fluids. Encourage increased oral intake and repeat labs. Thank you for this consultation. We will continue to follow the patient with you during his hospitalization. MMODL / IJN: [id number] /
[2017-07-04] MEDS ORDERED: traMADol 50 MG TAB PO PRN (14:12)
[2017-07-04] MEDS: DARBEPOETIN ALFA 40 MCG/0.4 ML SYRINGE SQ SCH (14:23)
--- NOTE | 2017-07-04 16:45 | P.PN ---
Subjective 81-year-old admitted for altered mental status and severe sepsis secondary to urinary tract infection Ramesh catheter related urine cultures showing gram- negative bacilli. Patient has positive blood cultures as MRSA repeat blood cultures will be obtained today tomorrow morning. Patient had a GI bleed secondary to friable rectal mass. Patient was subsequently transferred to ICU patient received 2 units of blood transfusion because of acute blood loss anemia from lower GI bleed patient was evaluated by multiple consultants received IV Lasix because of pulmonary edema related to IV fluid resuscitation patient had a normal ejection fraction, patient had poor renal function borderline urine output worsening kidney function with creatinine going up from 2.5-3.2 probably secondary to acute tubular necrosis from sepsis This summer Patient is feeling much better today is being transferred out of ICU Cardio vascular: denied any chest pain, palpitations Gastrointestinal denied any nausea vomiting Pulmonary: Denied any shortness of breath cough Neurologic denied any new focal deficits Objective - Vital Signs Vital signs: Vital Signs Temp 98.5 F 07/04/17 16:00 Pulse 99 07/04/17 16:00 Resp 16 07/04/17 16:00 BP 105/52 07/04/17 16:00 Pulse Ox 99 07/04/17 16:00 Intake & Output 07/03/17 07/04/17 07/04/17 18:59 06:59 18:59 Intake Total 850.0 752.5 320 Output Total 515 407 435 Balance 335.0 345.5 -115 Weight 112.8 kg Intake: IV 700 722.5 320 DAPTOmycin 650 mg In 50 Sodium Chloride 0.9% 50 ml @ 100 mls/hr IV Q48H [facility] Rx#:[id number] Piperacillin-Tazobactam 3 62.5 .375 gm In Dextrose/Water 1 50ml.bag @ 12.5 mls/hr IVPB Q12HR [facility] Rx#: [id number] Sodium Chloride 0.9% 1, 700 610 320 000 ml @ 20 mls/hr IV . Q24H [facility] Rx#:[id number] Intake, IV Titration 50.0 Amount Piperacillin-Tazobactam 3 50.0 .375 gm In Dextrose/Water 1 50ml.bag @ 12.5 mls/hr IVPB Q8HR [facility] Rx#: [id number] Oral 100 30 Output: Urine 515 407 435 Other: Voiding Method Indwelling Catheter Indwelling Catheter Indwelling Catheter # Bowel Movements 1 - Exam PHYSICAL EXAMINATION: GENERAL: The patient is alert and oriented x3, not in any acute distress. Well developed, well nourished. HEENT: Pupils are round and equally reacting to light. EOMI. No scleral icterus. No conjunctival pallor. Normocephalic, atraumatic. No pharyngeal erythema. No thyromegaly. CARDIOVASCULAR: S1 and S2 present. No murmurs, rubs, or gallops. PULMONARY: Chest is clear to auscultation, no wheezing or crackles. ABDOMEN: Soft, nontender, nondistended, normoactive bowel sounds. No palpable organomegaly. MUSCULOSKELETAL: No joint swelling or deformity. EXTREMITIES: No cyanosis, clubbing, or pedal edema. Patient has a Ramesh catheter in place NEUROLOGICAL: Gross neurological examination did not reveal any focal deficits. SKIN: No rashes. - Labs CBC & Chem 7: 07/04/17 03:45 07/04/17 03:45 Labs: Abnormal Lab Results - Last 24 Hours (Table) 07/03/17 07/03/17 07/03/17 Range/Units 17:50 17:58 21:02 WBC 12.2 H (3.8-10.6) k/uL RBC 3.26 L (4.30-5.90) m/uL Hgb 8.8 L (13.0-17.5) gm/dL Hct 28.7 L (39.0-53.0) % MCHC 30.9 L (31.0-37.0) g/dL RDW 16.7 H (11.5-15.5) % Sodium (137-145) mmol/L Carbon Dioxide (22-30) mmol/L BUN (9-20) mg/dL Creatinine (0.66-1.25) mg/dL Glucose (74-99) mg/dL POC Glucose (mg/dL) 181 H 176 H (75-99) mg/dL Calcium (8.4-10.2) mg/dL AST (17-59) U/L ALT (21-72) U/L Total Protein (6.3-8.2) g/dL Albumin (3.5-5.0) g/dL 07/04/17 07/04/17 07/04/17 Range/Units 00:33 03:45 03:45 WBC 11.8 H 11.6 H (3.8-10.6) k/uL RBC 3.25 L 3.31 L (4.30-5.90) m/uL Hgb 8.9 L 8.8 L (13.0-17.5) gm/dL Hct 28.1 L 28.6 L (39.0-53.0) % MCHC 30.8 L (31.0-37.0) g/dL RDW 16.6 H 16.5 H (11.5-15.5) % Sodium 132 L (137-145) mmol/L Carbon Dioxide 19 L (22-30) mmol/L BUN 43 H (9-20) mg/dL Creatinine 2.99 H (0.66-1.25) mg/dL Glucose 154 H (74-99) mg/dL POC Glucose (mg/dL) (75-99) mg/dL Calcium 8.1 L (8.4-10.2) mg/dL AST 62 H (17-59) U/L ALT 83 H (21-72) U/L Total Protein 5.3 L (6.3-8.2) g/dL Albumin 2.1 L (3.5-5.0) g/dL 07/04/17 07/04/17 Range/Units 06:59 11:57 WBC (3.8-10.6) k/uL RBC (4.30-5.90) m/uL Hgb (13.0-17.5) gm/dL Hct (39.0-53.0) % MCHC (31.0-37.0) g/dL RDW (11.5-15.5) % Sodium (137-145) mmol/L Carbon Dioxide (22-30) mmol/L BUN (9-20) mg/dL Creatinine (0.66-1.25) mg/dL Glucose (74-99) mg/dL POC Glucose (mg/dL) 159 H 183 H (75-99) mg/dL Calcium (8.4-10.2) mg/dL AST (17-59) U/L ALT (21-72) U/L Total Protein (6.3-8.2) g/dL Albumin (3.5-5.0) g/dL Microbiology - Last 24 Hours (Table) 12/26/17 17:58 Blood Culture - Final Blood 07/02/17 00:51 Blood Culture Gram Stain - Final Blood Blood Culture - Final Methicillin resist S. aureus 07/02/17 00:51 Urine Culture - Final Urine,Catheterized Pseudomonas aeruginosa Assessment and Plan Plan: #1 sepsis: Secondary to urinary tract infection from Ramesh catheter patient has a chronic chronic Ramesh catheter will also consult neurology as during her last his last admission there was issues with placing a Ramesh catheter patient appears to have benign prostatic hypertrophy. And has Pseudomonas in the urine cultures and patient has MRSA bacteremia for which patient is also on daptomycin #2 chronic kidney disease stage III probably diabetic nephropathy but there may be a competent of renal azotemia patient is hyponatremic as well patient appears to have will be An edema patient was started on 100 mL of normal saline. #3 hyperlipemia #4 hypertension #5 benign prostatic atrophy #6 acute renal dysfunction probably acute tubular necrosis nephrology is following the patient minimal improvement in creatinine #7 acute pulmonary edema: Secondary to IV fluids he received patient may have chronic diastolic dysfunction with acute exacerbation #8 GI bleed: Secondary to pro static mass invading rectal mucosa patient received blood transfusion patient will undergo radiation therapy
[2017-07-04 17:21] LABS: Glucose,Whole Blood 214 mg/dL (75-99)
[2017-07-04 20:04] LABS: Glucose,Whole Blood 250 mg/dL (75-99)
--- NOTE | 2017-07-04 22:13 | PN ---
PROGRESS NOTE DATE OF SERVICE: 07/04/2017 REASON FOR FOLLOWUP: 1. MRSA bacteremia. 2. Pseudomonas UTI. INTERVAL HISTORY: The patient is afebrile. He is breathing comfortably. Denies significant chest pain. No cough. No abdominal pain. , some loose stool but no worsening per the RN. EXAMINATION: Blood pressure is 107/59 with a pulse of 95, temperature of 98.5. She is 100% on 2 L nasal cannula. General description is an elderly male lying in bed in no distress. Respiratory system: Unlabored breathing. Clear to auscultation anteriorly. Heart S1, S2. Regular rate and rhythm. Abdomen soft no tenderness. LABS: Hemoglobin is 8.8, white count of 11.6, BUN of 23, and a creatinine of 2.99. DIAGNOSTIC IMPRESSION AND PLAN: 1. Patient with MRSA bacteremia concerning likely for a deep source. The patient did have MRSA bacteremia, An echocardiogram has been ordered to make sure no evidence of any vegetation and WBC body scan to localize the site of this bacteremia, which should be investigated further with imaging study. Unfortunately cannot be done at this point because of his renal insufficiency. Blood cultures will be repeated to make sure to document clearance of his bacteremia and daptomycin will be continued. Continue supportive care. 2. Patient with Pseudomonas urinary tract infection. Urology recommended against change of his Ramesh. Currently Zosyn will continue. Continue supportive care. MMODL / IJN: [id number] / MTDD
[2017-07-05] MEDS: HYDROmorphone 1 MG/ML 1 ML SYRINGE IVP PRN ×3 (04:30→18:32)
[2017-07-05] MEDS: SODIUM CHLORIDE 0.9% 1,000 ML IV SCH (04:30)
[2017-07-05 05:11] LABS: Anisocytosis Slight; Basophils % (A) 0 %; Eosinophils # (A) 0.3 k/uL (0-0.7); Eosinophils % (A) 3 %; HGB 8.5 gm/dL (13.0-17.5); Hypochromasia Marked; Lymphocytes # (A) 1.3 k/uL (1.0-4.8); Lymphocytes % (A) 16 %; MCH 26.2 pg (25.0-35.0); MCHC 30.3 g/dL (31.0-37.0); MCV 86.5 fL (80.0-100.0); Mean Platelet Volume 7.4; Monocytes # (A) 0.4 k/uL (0-1.0); Monocytes % (A) 5 %; Neutrophils # (A) 5.9 k/uL (1.3-7.7); Neutrophils % (A) 74 %; Platelet Count 165 k/uL (150-450); Poikilocytosis Slight; RBC 3.23 m/uL (4.30-5.90); RDW 16.7 % (11.5-15.5)
[2017-07-05 05:27] LABS: Albumin 2.2 g/dL (3.5-5.0); Calcium 7.9 mg/dL (8.4-10.2); Magnesium 1.9 mg/dL (1.6-2.3); Phosphorus 3.7 mg/dL (2.5-4.5); Potassium 3.9 mmol/L (3.5-5.1); Total Bilirubin 0.5 mg/dL (0.2-1.3)
[2017-07-05 07:25] LABS: Glucose,Whole Blood 175 mg/dL (75-99)
--- NOTE | 2017-07-05 07:56 | P.PN ---
Subjective Progress Note Date: 07/05/17 Principal diagnosis: Rectal bleeding Progress note dated 07/05/2017 This is a 81-year-old male who is an oncology overflow patient. The patient could be transferred out to the oncology floor. He came in with some rectal bleeding. The reason for the rectal bleeding is because he has prostate cancer which apparently is rotated into the bowel. The plan for him is apparently on radiation therapy. The patient is doing relatively well. Feeling a bit weak. The patient does not require any pressors at this time. Hemodynamically stable and his hemoglobin has been stable. The patient remains on daptomycin and Zosyn. The patient otherwise is doing relatively relatively well. Remains on O2 at 2 L. Currently off anticoagulants. Objective - Vital Signs Vital signs: Vital Signs Temp 98.8 F 07/05/17 04:00 Pulse 98 07/05/17 07:00 Resp 13 07/05/17 07:00 BP 107/61 07/05/17 07:00 Pulse Ox 100 07/05/17 07:00 Intake & Output 07/04/17 07/05/17 07/05/17 18:59 06:59 18:59 Intake Total 380 220 Output Total 625 260 Balance -245 -40 Weight 112 kg Intake: IV 380 220 Sodium Chloride 0.9% 1, 380 220 000 ml @ 20 mls/hr IV . Q24H [facility] Rx#:[id number] Oral 0 Output: Urine 625 260 Other: Voiding Method Indwelling Catheter Indwelling Catheter - Exam No acute distress, oriented 3. HEENT examination is grossly unremarkable. Mucous membranes are moist. No oral lesions. Neck supple. Full range of motion. No adenopathy thyromegaly or neck vein distention. Cardiovascular examination reveals irregular rhythm. S1-S2 normal. No S3 or S4. No discernible murmur noted. Lungs reveal clear breath sounds. Her sounds are equal bilaterally. No adventitious lung sounds including wheezes rhonchi or crackles. Abdomen soft bowel sounds are heard. No masses or tenderness. Extremities are intact. No cyanosis clubbing or edema. Skin is without rash or lesion. Neurologic examination is brief but nonfocal. - Labs CBC & Chem 7: 07/05/17 04:28 07/05/17 04:28 Labs: Abnormal Lab Results - Last 24 Hours (Table) 07/04/17 07/04/17 07/04/17 Range/Units 11:57 17:17 20:02 RBC (4.30-5.90) m/uL Hgb (13.0-17.5) gm/dL Hct (39.0-53.0) % MCHC (31.0-37.0) g/dL RDW (11.5-15.5) % Sodium (137-145) mmol/L Carbon Dioxide (22-30) mmol/L BUN (9-20) mg/dL Creatinine (0.66-1.25) mg/dL Glucose (74-99) mg/dL POC Glucose (mg/dL) 183 H 214 H 250 H (75-99) mg/dL Calcium (8.4-10.2) mg/dL ALT (21-72) U/L Total Protein (6.3-8.2) g/dL Albumin (3.5-5.0) g/dL 07/05/17 07/05/17 07/05/17 Range/Units 04:28 04:28 07:24 RBC 3.23 L (4.30-5.90) m/uL Hgb 8.5 L (13.0-17.5) gm/dL Hct 28.0 L (39.0-53.0) % MCHC 30.3 L (31.0-37.0) g/dL RDW 16.7 H (11.5-15.5) % Sodium 132 L (137-145) mmol/L Carbon Dioxide 19 L (22-30) mmol/L BUN 45 H (9-20) mg/dL Creatinine 2.80 H (0.66-1.25) mg/dL Glucose 168 H (74-99) mg/dL POC Glucose (mg/dL) 175 H (75-99) mg/dL Calcium 7.9 L (8.4-10.2) mg/dL ALT 83 H (21-72) U/L Total Protein 5.0 L (6.3-8.2) g/dL Albumin 2.2 L (3.5-5.0) g/dL Microbiology - Last 24 Hours (Table) 07/03/17 17:58 Blood Culture Gram Stain - Preliminary Blood Blood Culture - Preliminary Presumptive MRSA 07/04/17 03:45 Blood Culture Gram Stain - Preliminary Blood 07/04/17 03:45 Blood Culture - Final Blood 07/03/17 17:58 Blood Culture - Final Blood 07/02/17 00:51 Blood Culture Gram Stain - Final Blood Blood Culture - Final Methicillin resist S. aureus 07/02/17 00:51 Urine Culture - Final Urine,Catheterized Pseudomonas aeruginosa Assessment and Plan (1) Diabetes mellitus Current Visit: Yes Status: Acute Code(s): E11.9 - TYPE 2 DIABETES MELLITUS WITHOUT COMPLICATIONS SNOMED Code(s): 10149439 (2) Hypertension Current Visit: Yes Status: Acute Code(s): I10 - ESSENTIAL (PRIMARY) HYPERTENSION SNOMED Code(s): 12407904 (3) Hyperlipidemia Current Visit: Yes Status: Acute Code(s): E78.5 - HYPERLIPIDEMIA, UNSPECIFIED SNOMED Code(s): 20249648 (4) Shingles Current Visit: Yes Status: Acute Code(s): B02.9 - ZOSTER WITHOUT COMPLICATIONS SNOMED Code(s): 2452383 (5) Acute blood loss anemia Current Visit: Yes Status: Acute Priority: High Code(s): D62 - ACUTE POSTHEMORRHAGIC ANEMIA SNOMED Code(s): 855878179 (6) Anemia Current Visit: Yes Status: Acute Code(s): D64.9 - ANEMIA, UNSPECIFIED SNOMED Code(s): 567534986 (7) Prostate cancer Current Visit: Yes Status: Acute Priority: High Code(s): C61 - MALIGNANT NEOPLASM OF PROSTATE SNOMED Code(s): 799808020 (8) Abdominal pain Current Visit: No Status: Acute Code(s): R10.9 - UNSPECIFIED ABDOMINAL PAIN SNOMED Code(s): 39803633 (9) DM type 2 (diabetes mellitus, type 2) Current Visit: No Status: Acute Code(s): E11.9 - TYPE 2 DIABETES MELLITUS WITHOUT COMPLICATIONS SNOMED Code(s): 40805574 (10) GI bleed Current Visit: No Status: Acute Code(s): K92.2 - GASTROINTESTINAL HEMORRHAGE , UNSPECIFIED SNOMED Code(s): 54801447 (11) MRSA bacteremia Current Visit: No Status: Acute Code(s): R78.81 - BACTEREMIA SNOMED Code(s ): 99482300804393342 (12) BPH (benign prostatic hyperplasia) Current Visit: No Status: Chronic Code(s): N40.0 - BENIGN PROSTATIC HYPERPLASIA WITHOUT LOWER URINRY TRACT SYMP SNOMED Code(s): 287681822 (13) CKD (chronic kidney disease) Current Visit: No Status: Chronic Code(s): N18.9 - CHRONIC KIDNEY DISEASE, UNSPECIFIED SNOMED Code(s): 769786297 (14) Paroxysmal A-fib Current Visit: No Status: Chronic Code(s): I48.0 - PAROXYSMAL ATRIAL FIBRILLATION SNOMED Code(s): 977298381 (15) Sepsis Current Visit: No Status: Resolved Code(s): A41.9 - SEPSIS, UNSPECIFIED ORGANISM SNOMED Code(s): 07045469 Plan: Plan dated 07/05/2017 The patient's x-rays labs and medications are all reviewed. The patient did get a one-time dose of Lasix. We decrease his fluid chest at KVO. We'll continue to monitor his hemoglobin. We did not do need to do the every 6 hours hemoglobin is being done before. The patient is planning to get some radiation therapy to the prostate area. This will hopefully help the rectal bleeding. Hemoglobin has been stable. The patient can be transferred out to the oncology floor. Overall prognosis is poor. Time with Patient: Greater than 30
[2017-07-05] MEDS: INSULIN ASPART 100 UNIT/ML 1 ML 10 ML VIAL SQ SCH ×4 (08:52→22:27)
[2017-07-05] MEDS: BICALUTAMIDE 50 MG TAB PO SCH ×2 (08:52→21:22)
[2017-07-05] MEDS: METOPROLOL TARTRATE 50 MG TAB PO SCH ×3 (08:52→21:22)
[2017-07-05] MEDS: PANTOPRAZOLE 40 MG/10 ML VIAL IVP SCH (08:53)
--- NOTE | 2017-07-05 08:57 | XR ---
EXAMINATION TYPE: XR chest 1V portable DATE OF EXAM: 07/05/2017 COMPARISON: Prior chest x-ray 07/04/2017 HISTORY: Fluid overload TECHNIQUE: Single frontal view of the chest is obtained. FINDINGS: There is some improvement in the interstitium, aeration within the lungs. No other signifi cant interval change. There are overlying cardiac leads. Patient is rotated. IMPRESSION: Improvement in patient's volume status.
[2017-07-05] MEDS: PIPERACILLIN-TAZOBACTAM 3.375 GM in DEXTROSE/WATER 1 50ML.BAG IVPB SCH ×2 (09:30→21:23)
--- NOTE | 2017-07-05 10:32 | P.PN ---
Subjective Progress Note Date: 07/05/17 Principal diagnosis: A. FIB This is a pleasant 81-year-old gentleman who sees Dr. VC Carrion in the office as an outpatient with a past medical history significant for paroxysmal atrial fibrillation as well as prostate cancer who was admitted initially to the fourth floor and was transferred to the intensive care unit because of rectal bleeding. The patient bled significantly from the rectum was bright red blood. 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 He is under the care of Dr. Mcallister at this point. His hemoglobin dropped and the patient received 2 units of packed RBC. The hemoglobin was 7 and increased to 8.6 after the blood transfusion. We get involved in the care of the patient because he is in A. fib with heart rate between 100 to 110 beats per minutes. The pressure has been marginally low. Currently the patient is on metoprolol for heart rate control and he was receiving oral anticoagulation but that was stopped. Clinically the patient denies having any chest pain or discomfort or difficulty breathing or heart racing or fluttering feeling at this point. Overall he is weak. The patient was here in May 2017 and at that point he underwent an echocardiogram which revealed normal LV function without significant valvular abnormalities I'll follow-up with the patient today on July 05, he is feeling overall slightly better. The heart rate has improved and it has been in the 90s. Yesterday I did increase the dose of metoprolol to 50 mg 3 times a day. We'll continue this dose. The blood pressure has been normal. Objective - Vital Signs Vital signs: Vital Signs Temp 98 F 07/05/17 08:00 Pulse 108 H 07/05/17 10:00 Resp 21 07/05/17 10:00 BP 108/55 07/05/17 10:00 Pulse Ox 99 07/05/17 10:00 Intake & Output 07/04/17 07/05/17 07/05/17 18:59 06:59 18:59 Intake Total 380 220 60 Output Total 625 260 90 Balance -245 -40 -30 Weight 112 kg Intake: IV 380 220 60 Sodium Chloride 0.9% 1, 380 220 60 000 ml @ 20 mls/hr IV . Q24H [facility] Rx#:[id number] Oral 0 Output: Urine 625 260 90 Other: Voiding Method Indwelling Catheter Indwelling Catheter Indwelling Catheter - Constitutional General appearance: Present: no acute distress - Respiratory Respiratory: bilateral: diminished - Cardiovascular Rhythm: irregularly irregular - Labs CBC & Chem 7: 07/05/17 04:28 07/05/17 04:28 Labs: Abnormal Lab Results - Last 24 Hours (Table) 07/04/17 07/04/17 07/04/17 Range/Units 11:57 17:17 20:02 RBC (4.30-5.90) m/uL Hgb (13.0-17.5) gm/dL Hct (39.0-53.0) % MCHC (31.0-37.0) g/dL RDW (11.5-15.5) % Sodium (137-145) mmol/L Carbon Dioxide (22-30) mmol/L BUN (9-20) mg/dL Creatinine (0.66-1.25) mg/dL Glucose (74-99) mg/dL POC Glucose (mg/dL) 183 H 214 H 250 H (75-99) mg/dL Calcium (8.4-10.2) mg/dL ALT (21-72) U/L Total Protein (6.3-8.2) g/dL Albumin (3.5-5.0) g/dL 07/05/17 07/05/17 07/05/17 Range/Units 04:28 04:28 07:24 RBC 3.23 L (4.30-5.90) m/uL Hgb 8.5 L (13.0-17.5) gm/dL Hct 28.0 L (39.0-53.0) % MCHC 30.3 L (31.0-37.0) g/dL RDW 16.7 H (11.5-15.5) % Sodium 132 L (137-145) mmol/L Carbon Dioxide 19 L (22-30) mmol/L BUN 45 H (9-20) mg/dL Creatinine 2.80 H (0.66-1.25) mg/dL Glucose 168 H (74-99) mg/dL POC Glucose (mg/dL) 175 H (75-99) mg/dL Calcium 7.9 L (8.4-10.2) mg/dL ALT 83 H (21-72) U/L Total Protein 5.0 L (6.3-8.2) g/dL Albumin 2.2 L (3.5-5.0) g/dL Microbiology - Last 24 Hours (Table) 07/03/17 17:58 Blood Culture Gram Stain - Preliminary Blood Blood Culture - Preliminary Presumptive MRSA 07/04/17 03:45 Blood Culture Gram Stain - Preliminary Blood 07/04/17 03:45 Blood Culture - Final Blood 07/03/17 17:58 Blood Culture - Final Blood 07/02/17 00:51 Blood Culture Gram Stain - Final Blood Blood Culture - Final Methicillin resist S. aureus 07/02/17 00:51 Urine Culture - Final Urine,Catheterized Pseudomonas aeruginosa Assessment and Plan Assessment: Assessment #1 anemia secondary to rectal bleeding #2 prostate cancer #3 paroxysmal atrial fibrillation #4 generalized fatigue and tiredness #5 multiple comorbid conditions Plan #1 continue the current dose of metoprolol #2 follow-up with the patient on when necessary case
[2017-07-05 12:35] LABS: Glucose,Whole Blood 176 mg/dL (75-99)
[2017-07-05] MEDS ORDERED: FUROSEMIDE 10 MG/ML 4 ML VIAL IV STA ×2 (12:56→23:53)
--- NOTE | 2017-07-05 15:11 | PN ---
PROGRESS NOTE Patient is seen for followup for chronic kidney disease. He is currently lying in bed. He has not been eating much. He is not maintained on any IV fluids. Urine output has been about 20 to 30 mL an hour. Serum creatinine is 2.8 from 2.9 yesterday. PHYSICAL EXAMINATION: Blood pressure is 109/56, heart rate 95 per minute. He is afebrile. Examination of the heart, S1, S2. Examination of the lungs, bilateral breath sounds are heard. Abdomen is soft, nontender. Examination of the lower extremity shows no evidence of edema. [employer] exam is grossly intact. Patient moving all 4 extremities. LABS: Show sodium 132, potassium 3.9, BUN 45, serum creatinine 2.8, hemoglobin 8.5 g/dL, phosphorus was 3.7. ASSESSMENT: 1. Chronic kidney disease, NKF stage IV with baseline creatinine about 2.0 mg/dL. 2. Acute kidney injury secondary to hypotension, nonoliguric. However, for the last couple of hours, urine output has been low at 10 mL an hour. Will give him one dose of Lasix. He has received Lasix mostly on a daily basis for the last 2 days. 3. Urinary tract infections with urine culture growing Pseudomonas. Currently maintained on Zosyn. 4. Methicillin-resistant Staphylococcus aureus bacteremia, being followed by Infectious Disease. Vancomycin was discontinued and currently patient is maintained on daptomycin. 5. Chronic kidney disease stage IIIB to IV with baseline creatinine about 2 to 2.5 mg/dL secondary to diabetic nephropathy and nephrosclerosis. 6. Recent diagnosis of prostatic cancer to be scheduled for radiation therapy and androgen deprivation therapy as outpatient. 7. Anemia with history of rectal bleeding with no active bleeding currently and patient is maintained on Aranesp. Iron studies will be ordered if not done on this admission. Previous iron saturation was 63% on June 05. MMODL / IJN: [id number] /
--- NOTE | 2017-07-05 16:47 | PN ---
PROGRESS NOTE DATE OF SERVICE: 07/05/2017 REASON FOR FOLLOWUP: 1. MRSA bacteremia, question of endocarditis. 2. Pseudomonas urinary tract infection. INTERVAL HISTORY: The patient is afebrile. He is feeling slightly better, breathing comfortably. Denies significant chest pain. No cough and no abdominal pain. Still has slight bleeding per rectum, but no worsening. PHYSICAL EXAMINATION: Blood pressure 109/56 with a pulse of 95, temperature of 98. He is 100% on 2 L nasal cannula. General description is an elderly male lying in bed in no distress. RESPIRATORY SYSTEM: Unlabored breathing. Clear to auscultation anteriorly. HEART: S1, S2. Regular rate and rhythm. ABDOMEN: Soft. No tenderness. LABS: Hemoglobin 8.5, white count 8.0, BUN of 45, creatinine 2.80. DIAGNOSTIC IMPRESSION AND PLAN: 1. Patient with methicillin-resistant Staphylococcus aeruginosa bacteremia with concern about possible mitral valve endocarditis. A CHASITY will be done. He will be kept on daptomycin at 6 mg/kg. 2. Pseudomonas urinary tract infection, currently covered with Zosyn. Overall prognosis remains guarded. Continue with supportive care. MMODL / IJN: [id number] /
--- NOTE | 2017-07-05 17:40 | P.PN ---
Subjective 81-year-old admitted for altered mental status and severe sepsis secondary to urinary tract infection Ramesh catheter related urine cultures showing gram- negative bacilli. Patient has positive blood cultures as MRSA repeat blood cultures will be obtained today tomorrow morning. Patient had a GI bleed secondary to friable rectal mass. Patient was subsequently transferred to ICU patient received 2 units of blood transfusion because of acute blood loss anemia from lower GI bleed patient was evaluated by multiple consultants received IV Lasix because of pulmonary edema related to IV fluid resuscitation patient had a normal ejection fraction, patient had poor renal function borderline urine output worsening kidney function with creatinine going up from 2.5-3.2 probably secondary to acute tubular necrosis from sepsis 07/05/2017 She and looks better today patient will undergo a tagged red blood cell scan, patient has persistent bacteremia with MRSA patient's urine cultures are positive for Pseudomonas which is pansensitive, patient will be continued on daptomycin repeat blood cultures will be obtained as per infectious disease patient will require a CHASITY although patient does not have any no murmur exam Cardio vascular: denied any chest pain, palpitations Gastrointestinal denied any nausea vomiting Pulmonary: Denied any shortness of breath cough Neurologic denied any new focal deficits Objective - Vital Signs Vital signs: Vital Signs Temp 98 F 07/05/17 12:00 Pulse 99 07/05/17 17:00 Resp 18 07/05/17 17:00 BP 99/58 07/05/17 17:00 Pulse Ox 99 07/05/17 17:00 Intake & Output 07/04/17 07/05/17 07/05/17 18:59 06:59 18:59 Intake Total 380 220 220 Output Total 625 260 220 Balance -245 -40 0 Weight 112 kg Intake: IV 380 220 220 Sodium Chloride 0.9% 1, 380 220 220 000 ml @ 20 mls/hr IV . Q24H [facility] Rx#:[id number] Oral 0 Output: Urine 625 260 220 Other: Voiding Method Indwelling Catheter Indwelling Catheter Indwelling Catheter - Exam PHYSICAL EXAMINATION: GENERAL: The patient is alert and oriented x3, not in any acute distress. Well developed, well nourished. HEENT: Pupils are round and equally reacting to light. EOMI. No scleral icterus. No conjunctival pallor. Normocephalic, atraumatic. No pharyngeal erythema. No thyromegaly. CARDIOVASCULAR: S1 and S2 present. No murmurs, rubs, or gallops. PULMONARY: Chest is clear to auscultation, no wheezing or crackles. ABDOMEN: Soft, nontender, nondistended, normoactive bowel sounds. No palpable organomegaly. MUSCULOSKELETAL: No joint swelling or deformity. EXTREMITIES: No cyanosis, clubbing, or pedal edema. Patient has a Ramesh catheter in place NEUROLOGICAL: Gross neurological examination did not reveal any focal deficits. SKIN: No rashes. - Labs CBC & Chem 7: 07/05/17 04:28 07/05/17 04:28 Labs: Abnormal Lab Results - Last 24 Hours (Table) 07/04/17 07/05/17 07/05/17 Range/Units 20:02 04:28 04:28 RBC 3.23 L (4.30-5.90) m/uL Hgb 8.5 L (13.0-17.5) gm/dL Hct 28.0 L (39.0-53.0) % MCHC 30.3 L (31.0-37.0) g/dL RDW 16.7 H (11.5-15.5) % Sodium 132 L (137-145) mmol/L Carbon Dioxide 19 L (22-30) mmol/L BUN 45 H (9-20) mg/dL Creatinine 2.80 H (0.66-1.25) mg/dL Glucose 168 H (74-99) mg/dL POC Glucose (mg/dL) 250 H (75-99) mg/dL Calcium 7.9 L (8.4-10.2) mg/dL ALT 83 H (21-72) U/L Total Protein 5.0 L (6.3-8.2) g/dL Albumin 2.2 L (3.5-5.0) g/dL 07/05/17 07/05/17 Range/Units 07:24 12:32 RBC (4.30-5.90) m/uL Hgb (13.0-17.5) gm/dL Hct (39.0-53.0) % MCHC (31.0-37.0) g/dL RDW (11.5-15.5) % Sodium (137-145) mmol/L Carbon Dioxide (22-30) mmol/L BUN (9-20) mg/dL Creatinine (0.66-1.25) mg/dL Glucose (74-99) mg/dL POC Glucose (mg/dL) 175 H 176 H (75-99) mg/dL Calcium (8.4-10.2) mg/dL ALT (21-72) U/L Total Protein (6.3-8.2) g/dL Albumin (3.5-5.0) g/dL Microbiology - Last 24 Hours (Table) 07/04/17 15:27 Blood Culture - Preliminary Blood No Growth after 24 hours 07/04/17 03:45 Blood Culture Gram Stain - Preliminary Blood Blood Culture - Preliminary Presumptive MRSA 07/03/17 17:58 Blood Culture Gram Stain - Preliminary Blood Blood Culture - Preliminary Presumptive MRSA 07/04/17 03:45 Blood Culture - Final Blood 07/03/17 17:58 Blood Culture - Final Blood Assessment and Plan Plan: #1 sepsis: Secondary to urinary tract infection from Ramesh catheter patient has a chronic chronic Ramesh catheter will also consult neurology as during her last his last admission there was issues with placing a Ramesh catheter patient appears to have benign prostatic hypertrophy. has Pseudomonas in the urine cultures and patient has MRSA bacteremia for which patient is also on daptomycin and patient has persistent bacteremia highly concerning for back to Rolanda carditis for which patient will need a transesophageal echocardiogram #2 chronic kidney disease stage III probably diabetic nephropathy but there may be a competent of renal azotemia patient is hyponatremic as well patient appears to have will be An edema patient was started on 100 mL of normal saline. #3 hyperlipemia #4 hypertension #5 benign prostatic atrophy #6 acute renal dysfunction probably acute tubular necrosis nephrology is following the patient minimal improvement in creatinine #7 acute pulmonary edema: Secondary to IV fluids he received patient may have chronic diastolic dysfunction with acute exacerbation, patient is fairly euvolemic patient lungs sound much better no crackles on exam #8 GI bleed: Secondary to pro static mass invading rectal mucosa patient received blood transfusion patient will undergo radiation therapy patient is undergoing tagged red blood cell scan no more GI bleed patient apparently will undergo radiation therapy
[2017-07-05 18:19] LABS: Glucose,Whole Blood 179 mg/dL (75-99)
[2017-07-05 21:08] LABS: Glucose,Whole Blood 177 mg/dL (75-99)
[2017-07-06] MEDS: HYDROmorphone 1 MG/ML 1 ML SYRINGE IVP PRN ×4 (00:35→20:56)
[2017-07-06 05:07] LABS: Anisocytosis Slight; HCT 29.1 % (39.0-53.0); HGB 8.8 gm/dL (13.0-17.5); Hypochromasia Marked; MCH 26.8 pg (25.0-35.0); MCHC 30.3 g/dL (31.0-37.0); MCV 88.2 fL (80.0-100.0); Mean Platelet Volume 7.4; Platelet Count 174 k/uL (150-450); Poikilocytosis Slight; RBC 3.29 m/uL (4.30-5.90); RDW 16.6 % (11.5-15.5); WBC 8.8 k/uL (3.8-10.6)
[2017-07-06 05:33] LABS: Albumin 2.3 g/dL (3.5-5.0); Total Bilirubin 0.4 mg/dL (0.2-1.3); Total Protein 5.3 g/dL (6.3-8.2)
[2017-07-06 07:31] LABS: Glucose,Whole Blood 152 mg/dL (75-99)
[2017-07-06] MEDS ORDERED: SODIUM CHLORIDE 0.9% 500 ML IV ONE (07:35)
--- NOTE | 2017-07-06 08:53 | P.PN ---
Subjective Progress Note Date: 07/06/17 Principal diagnosis: Rectal bleeding Progress note dated 07/05/2017 This is a 81-year-old male who is an oncology overflow patient. The patient could be transferred out to the oncology floor. He came in with some rectal bleeding. The reason for the rectal bleeding is because he has prostate cancer which apparently is rotated into the bowel. The plan for him is apparently on radiation therapy. The patient is doing relatively well. Feeling a bit weak. The patient does not require any pressors at this time. Hemodynamically stable and his hemoglobin has been stable. The patient remains on daptomycin and Zosyn. The patient otherwise is doing relatively relatively well. Remains on O2 at 2 L. Currently off anticoagulants. Progress note dated 07/06/2017 81-year-old male with a history of off GI bleed. The patient has a history of prostate cancer which is eroded into the rectum. He's an overflow oncology patient can be transferred out to the oncology floor or to general medical floor. The patient's very stable this point. Blood pressure is been stable. Respiratory status is stable. The patient's on O2 at 2 L by nasal cannula and IV of saline at KVO. The patient is not requiring any additional blood. The patient remains on daptomycin and Zosyn. Hemodynamically stable. The plan is for him to get radiation therapy to the prostate area to hopefully stem the bleeding from the lesion is eroding into the rectum. The patient is off all anticoagulants at this time. Objective - Vital Signs Vital signs: Vital Signs Temp 98.2 F 07/06/17 00:00 Pulse 115 H 07/06/17 06:00 Resp 18 07/06/17 06:00 BP 105/64 07/06/17 06:00 Pulse Ox 98 07/06/17 06:00 Intake & Output 07/05/17 07/06/17 07/06/17 18:59 06:59 18:59 Intake Total 240 240 Output Total 235 145 Balance 5 95 Weight 113 kg Intake: IV 240 240 Sodium Chloride 0.9% 1, 240 240 000 ml @ 20 mls/hr IV . Q24H [facility] Rx#:[id number] Output: Urine 235 145 Other: Voiding Method Indwelling Catheter Indwelling Catheter - Exam No acute distress, oriented 3. HEENT examination is grossly unremarkable. Mucous membranes are moist. No oral lesions. Neck supple. Full range of motion. No adenopathy thyromegaly or neck vein distention. Cardiovascular examination reveals irregular rhythm. S1-S2 normal. No S3 or S4. No discernible murmur noted. Lungs reveal clear breath sounds. Her sounds are equal bilaterally. No adventitious lung sounds including wheezes rhonchi or crackles. Abdomen soft bowel sounds are heard. No masses or tenderness. Extremities are intact. No cyanosis clubbing or edema. Skin is without rash or lesion. Neurologic examination is brief but nonfocal. - Labs CBC & Chem 7: 07/06/17 04:33 07/06/17 04:33 Labs: Abnormal Lab Results - Last 24 Hours (Table) 07/05/17 07/05/17 07/05/17 Range/Units 12:32 18:18 21:05 RBC (4.30-5.90) m/uL Hgb (13.0-17.5) gm/dL Hct (39.0-53.0) % MCHC (31.0-37.0) g/dL RDW (11.5-15.5) % Sodium (137-145) mmol/L Carbon Dioxide (22-30) mmol/L BUN (9-20) mg/dL Creatinine (0.66-1.25) mg/dL Glucose (74-99) mg/dL POC Glucose (mg/dL) 176 H 179 H 177 H (75-99) mg/dL Calcium (8.4-10.2) mg/dL Total Protein (6.3-8.2) g/dL Albumin (3.5-5.0) g/dL 07/06/17 07/06/17 07/06/17 Range/Units 04:33 04:33 07:29 RBC 3.29 L (4.30-5.90) m/uL Hgb 8.8 L (13.0-17.5) gm/dL Hct 29.1 L (39.0-53.0) % MCHC 30.3 L (31.0-37.0) g/dL RDW 16.6 H (11.5-15.5) % Sodium 130 L (137-145) mmol/L Carbon Dioxide 19 L (22-30) mmol/L BUN 49 H (9-20) mg/dL Creatinine 3.20 H (0.66-1.25) mg/dL Glucose 146 H (74-99) mg/dL POC Glucose (mg/dL) 152 H (75-99) mg/dL Calcium 8.0 L (8.4-10.2) mg/dL Total Protein 5.3 L (6.3-8.2) g/dL Albumin 2.3 L (3.5-5.0) g/dL Microbiology - Last 24 Hours (Table) 07/05/17 04:28 Blood Culture - Preliminary Blood No Growth after 24 hours 07/03/17 17:58 Blood Culture Gram Stain - Final Blood Blood Culture - Final Methicillin resist S. aureus 07/04/17 15:27 Blood Culture - Preliminary Blood No Growth after 24 hours 07/04/17 03:45 Blood Culture Gram Stain - Preliminary Blood Blood Culture - Preliminary Presumptive MRSA Assessment and Plan (1) Diabetes mellitus Current Visit: Yes Status: Acute Code(s): E11.9 - TYPE 2 DIABETES MELLITUS WITHOUT COMPLICATIONS SNOMED Code(s): 99688366 (2) Hypertension Current Visit: Yes Status: Acute Code(s): I10 - ESSENTIAL (PRIMARY) HYPERTENSION SNOMED Code(s): 99740002 (3) Hyperlipidemia Current Visit: Yes Status: Acute Code(s): E78.5 - HYPERLIPIDEMIA, UNSPECIFIED SNOMED Code(s): 63627177 (4) Shingles Current Visit: Yes Status: Acute Code(s): B02.9 - ZOSTER WITHOUT COMPLICATIONS SNOMED Code(s): 5255054 (5) Acute blood loss anemia Current Visit: Yes Status: Acute Priority: High Code(s): D62 - ACUTE POSTHEMORRHAGIC ANEMIA SNOMED Code(s): 765067250 (6) Anemia Current Visit: Yes Status: Acute Code(s): D64.9 - ANEMIA, UNSPECIFIED SNOMED Code(s): 312971148 (7) Prostate cancer Current Visit: Yes Status: Acute Priority: High Code(s): C61 - MALIGNANT NEOPLASM OF PROSTATE SNOMED Code(s): 383146045 (8) Abdominal pain Current Visit: No Status: Acute Code(s): R10.9 - UNSPECIFIED ABDOMINAL PAIN SNOMED Code(s): 33960099 (9) DM type 2 (diabetes mellitus, type 2) Current Visit: No Status: Acute Code(s): E11.9 - TYPE 2 DIABETES MELLITUS WITHOUT COMPLICATIONS SNOMED Code(s): 16712457 (10) GI bleed Current Visit: No Status: Acute Code(s): K92.2 - GASTROINTESTINAL HEMORRHAGE , UNSPECIFIED SNOMED Code(s): 25308018 (11) MRSA bacteremia Current Visit: No Status: Acute Code(s): R78.81 - BACTEREMIA SNOMED Code(s ): 95190408761503952 (12) BPH (benign prostatic hyperplasia) Current Visit: No Status: Chronic Code(s): N40.0 - BENIGN PROSTATIC HYPERPLASIA WITHOUT LOWER URINRY TRACT SYMP SNOMED Code(s): 266104182 (13) CKD (chronic kidney disease) Current Visit: No Status: Chronic Code(s): N18.9 - CHRONIC KIDNEY DISEASE, UNSPECIFIED SNOMED Code(s): 352117633 (14) Paroxysmal A-fib Current Visit: No Status: Chronic Code(s): I48.0 - PAROXYSMAL ATRIAL FIBRILLATION SNOMED Code(s): 159698596 (15) Sepsis Current Visit: No Status: Resolved Code(s): A41.9 - SEPSIS, UNSPECIFIED ORGANISM SNOMED Code(s): 95071317 Plan: Plan dated 07/05/2017 The patient's x-rays labs and medications are all reviewed. The patient did get a one-time dose of Lasix. We decrease his fluid chest at KVO. We'll continue to monitor his hemoglobin. We did not do need to do the every 6 hours hemoglobin is being done before. The patient is planning to get some radiation therapy to the prostate area. This will hopefully help the rectal bleeding. Hemoglobin has been stable. The patient can be transferred out to the oncology floor. Overall prognosis is poor. Plan dated 07/06/2017 The patient some medications labs and x-rays are reviewed. The patient can be transferred out to the floor. No additional recommendations are made. She go to oncology or general medical floor. Hemoglobin is stable. No additional bleeding. The plan is for external beam radiation to that area to prevent any further bleeding and to reduce the effects of the prostate cancer eroding into the rectum. Time with Patient: Less than 30
[2017-07-06] MEDS: SODIUM CHLORIDE 0.9% 1,000 ML IV SCH (09:08)
[2017-07-06] MEDS: PANTOPRAZOLE 40 MG/10 ML VIAL IVP SCH (09:10)
[2017-07-06] MEDS: METOPROLOL TARTRATE 50 MG TAB PO SCH ×3 (09:10→21:49)
[2017-07-06] MEDS: BICALUTAMIDE 50 MG TAB PO SCH ×2 (09:10→21:49)
[2017-07-06] MEDS: PIPERACILLIN-TAZOBACTAM 3.375 GM in DEXTROSE/WATER 1 50ML.BAG IVPB SCH ×2 (09:11→21:49)
[2017-07-06] MEDS: INSULIN ASPART 100 UNIT/ML 1 ML 10 ML VIAL SQ SCH ×4 (09:12→20:56)
[2017-07-06 11:55] LABS: Glucose,Whole Blood 205 mg/dL (75-99)
--- NOTE | 2017-07-06 13:08 | NM ---
EXAMINATION TYPE: NM WBC whole body DATE OF EXAM: 07/06/2017 COMPARISON: Nuclear medicine PET/CT 06/23/2017 HISTORY: MRSA bacteremia TECHNIQUE: Following administration of 21.2 mCi Tc99m Ceretec. Images obtained 4 hour(s) and 22 shana r(s) post injection. FINDINGS: Normal physiological tracer activity is noted in the liver, spleen, bone marrow, kidneys. Images of the legs show some interval increased soft tissue uptake. IMPRESSION: Correlate for possible cellulitis in the lower extremities.
--- NOTE | 2017-07-06 13:33 | P.PN ---
Subjective Progress Note Date: 07/06/17 The patient has invasive prostate cancer in the rectum causing rectal bleeding. He was seen by urologically and started on AcipHex as well as Lupron. He is stabilized medically and will be transferred to the oncology floor. He will start radiation therapy to the cancer control the rectal bleeding in the near future. Been transferred to the oncology floor. Objective - Vital Signs Vital signs: Vital Signs Temp 97.8 F 07/06/17 13:00 Pulse 101 H 07/06/17 13:00 Resp 18 07/06/17 13:00 BP 106/60 07/06/17 13:00 Pulse Ox 94 L 07/06/17 13:00 Intake & Output 07/05/17 07/06/17 07/06/17 18:59 06:59 18:59 Intake Total 240 240 550 Output Total 235 145 105 Balance 5 95 445 Weight 113 kg 113 kg Intake: IV 240 240 Sodium Chloride 0.9% 1, 240 240 000 ml @ 20 mls/hr IV . Q24H [facility] Rx#:[id number] Intake, IV Titration 550 Amount Piperacillin-Tazobactam 3 50 .375 gm In Dextrose/Water 1 50ml.bag @ 12.5 mls/hr IVPB Q12HR [facility] Rx#: [id number] Sodium Chloride 0.9% 500 500 ml @ 999 mls/hr IV .Q31M [facility] Rx#:[id number] Output: Urine 235 145 105 Other: Voiding Method Indwelling Catheter Indwelling Catheter Indwelling Catheter - Labs CBC & Chem 7: 07/06/17 04:33 07/06/17 04:33 Labs: Abnormal Lab Results - Last 24 Hours (Table) 07/05/17 07/05/17 07/06/17 Range/Units 18:18 21:05 04:33 RBC 3.29 L (4.30-5.90) m/uL Hgb 8.8 L (13.0-17.5) gm/dL Hct 29.1 L (39.0-53.0) % MCHC 30.3 L (31.0-37.0) g/dL RDW 16.6 H (11.5-15.5) % Sodium (137-145) mmol/L Carbon Dioxide (22-30) mmol/L BUN (9-20) mg/dL Creatinine (0.66-1.25) mg/dL Glucose (74-99) mg/dL POC Glucose (mg/dL) 179 H 177 H (75-99) mg/dL Calcium (8.4-10.2) mg/dL Total Protein (6.3-8.2) g/dL Albumin (3.5-5.0) g/dL 07/06/17 07/06/17 07/06/17 Range/Units 04:33 07:29 11:53 RBC (4.30-5.90) m/uL Hgb (13.0-17.5) gm/dL Hct (39.0-53.0) % MCHC (31.0-37.0) g/dL RDW (11.5-15.5) % Sodium 130 L (137-145) mmol/L Carbon Dioxide 19 L (22-30) mmol/L BUN 49 H (9-20) mg/dL Creatinine 3.20 H (0.66-1.25) mg/dL Glucose 146 H (74-99) mg/dL POC Glucose (mg/dL) 152 H 205 H (75-99) mg/dL Calcium 8.0 L (8.4-10.2) mg/dL Total Protein 5.3 L (6.3-8.2) g/dL Albumin 2.3 L (3.5-5.0) g/dL Microbiology - Last 24 Hours (Table) 07/04/17 03:45 Blood Culture Gram Stain - Final Blood Blood Culture - Final Methicillin resist S. aureus 07/05/17 04:28 Blood Culture - Preliminary Blood No Growth after 24 hours 07/03/17 17:58 Blood Culture Gram Stain - Final Blood Blood Culture - Final Methicillin resist S. aureus 07/04/17 15:27 Blood Culture - Preliminary Blood No Growth after 24 hours
--- NOTE | 2017-07-06 16:16 | P.PN ---
Subjective 81-year-old admitted for altered mental status and severe sepsis secondary to urinary tract infection Ramesh catheter related urine cultures showing gram- negative bacilli. Patient has positive blood cultures as MRSA repeat blood cultures will be obtained today tomorrow morning. Patient had a GI bleed secondary to friable rectal mass. Patient was subsequently transferred to ICU patient received 2 units of blood transfusion because of acute blood loss anemia from lower GI bleed patient was evaluated by multiple consultants received IV Lasix because of pulmonary edema related to IV fluid resuscitation patient had a normal ejection fraction, patient had poor renal function borderline urine output worsening kidney function with creatinine going up from 2.5-3.2 probably secondary to acute tubular necrosis from sepsis 07/05/2017 She and looks better today patient will undergo a tagged red blood cell scan, patient has persistent bacteremia with MRSA patient's urine cultures are positive for Pseudomonas which is pansensitive, patient will be continued on daptomycin repeat blood cultures will be obtained as per infectious disease patient will require a CHASITY although patient does not have any no murmur exam 07/06/2017 The patient overnight events Cardio vascular: denied any chest pain, palpitations Gastrointestinal denied any nausea vomiting Pulmonary: Denied any shortness of breath cough Neurologic denied any new focal deficits Objective - Vital Signs Vital signs: Vital Signs Temp 97.8 F 07/06/17 13:00 Pulse 101 H 07/06/17 13:00 Resp 18 07/06/17 13:00 BP 106/60 07/06/17 13:00 Pulse Ox 94 L 07/06/17 13:00 Intake & Output 07/05/17 07/06/17 07/06/17 18:59 06:59 18:59 Intake Total 240 240 550 Output Total 235 145 105 Balance 5 95 445 Weight 113 kg 113 kg Intake: IV 240 240 Sodium Chloride 0.9% 1, 240 240 000 ml @ 20 mls/hr IV . Q24H [facility] Rx#:[id number] Intake, IV Titration 550 Amount Piperacillin-Tazobactam 3 50 .375 gm In Dextrose/Water 1 50ml.bag @ 12.5 mls/hr IVPB Q12HR [facility] Rx#: [id number] Sodium Chloride 0.9% 500 500 ml @ 999 mls/hr IV .Q31M [facility] Rx#:[id number] Output: Urine 235 145 105 Other: Voiding Method Indwelling Catheter Indwelling Catheter Indwelling Catheter - Exam PHYSICAL EXAMINATION: GENERAL: The patient is alert and oriented x3, not in any acute distress. Well developed, well nourished. HEENT: Pupils are round and equally reacting to light. EOMI. No scleral icterus. No conjunctival pallor. Normocephalic, atraumatic. No pharyngeal erythema. No thyromegaly. CARDIOVASCULAR: S1 and S2 present. No murmurs, rubs, or gallops. PULMONARY: Chest is clear to auscultation, no wheezing or crackles. ABDOMEN: Soft, nontender, nondistended, normoactive bowel sounds. No palpable organomegaly. MUSCULOSKELETAL: No joint swelling or deformity. EXTREMITIES: No cyanosis, clubbing, or pedal edema. Patient has a Ramesh catheter in place NEUROLOGICAL: Gross neurological examination did not reveal any focal deficits. SKIN: No rashes. - Labs CBC & Chem 7: 07/06/17 04:33 07/06/17 04:33 Labs: Abnormal Lab Results - Last 24 Hours (Table) 07/05/17 07/05/17 07/06/17 Range/Units 18:18 21:05 04:33 RBC 3.29 L (4.30-5.90) m/uL Hgb 8.8 L (13.0-17.5) gm/dL Hct 29.1 L (39.0-53.0) % MCHC 30.3 L (31.0-37.0) g/dL RDW 16.6 H (11.5-15.5) % Sodium (137-145) mmol/L Carbon Dioxide (22-30) mmol/L BUN (9-20) mg/dL Creatinine (0.66-1.25) mg/dL Glucose (74-99) mg/dL POC Glucose (mg/dL) 179 H 177 H (75-99) mg/dL Calcium (8.4-10.2) mg/dL Total Protein (6.3-8.2) g/dL Albumin (3.5-5.0) g/dL 07/06/17 07/06/17 07/06/17 Range/Units 04:33 07:29 11:53 RBC (4.30-5.90) m/uL Hgb (13.0-17.5) gm/dL Hct (39.0-53.0) % MCHC (31.0-37.0) g/dL RDW (11.5-15.5) % Sodium 130 L (137-145) mmol/L Carbon Dioxide 19 L (22-30) mmol/L BUN 49 H (9-20) mg/dL Creatinine 3.20 H (0.66-1.25) mg/dL Glucose 146 H (74-99) mg/dL POC Glucose (mg/dL) 152 H 205 H (75-99) mg/dL Calcium 8.0 L (8.4-10.2) mg/dL Total Protein 5.3 L (6.3-8.2) g/dL Albumin 2.3 L (3.5-5.0) g/dL Microbiology - Last 24 Hours (Table) 07/04/17 03:45 Blood Culture Gram Stain - Final Blood Blood Culture - Final Methicillin resist S. aureus 07/05/17 04:28 Blood Culture - Preliminary Blood No Growth after 24 hours 07/03/17 17:58 Blood Culture Gram Stain - Final Blood Blood Culture - Final Methicillin resist S. aureus 07/04/17 15:27 Blood Culture - Preliminary Blood No Growth after 24 hours Assessment and Plan Plan: #1 sepsis: Secondary to urinary tract infection from Ramesh catheter patient has a chronic chronic Ramesh catheter will also consult neurology as during her last his last admission there was issues with placing a Ramesh catheter patient appears to have benign prostatic hypertrophy. has Pseudomonas in the urine cultures and patient has MRSA bacteremia for which patient is also on daptomycin and patient has persistent bacteremia highly concerning for bacterial endocarditis for which patient will need a transesophageal echocardiogram #2 chronic kidney disease stage III probably diabetic nephropathy but there may be a competent of , acute tubular necrosis from sepsis #3 hyperlipemia #4 hypertension #5 benign prostatic atrophy #6 acute renal dysfunction probably acute tubular necrosis nephrology is following the patient minimal improvement in creatinine #7 acute pulmonary edema: Secondary to IV fluids he received patient may have chronic diastolic dysfunction with acute exacerbation, patient is fairly euvolemic patient lungs sound much better no crackles on exam #8 GI bleed: Secondary to pro static mass invading rectal mucosa patient received blood transfusion patient will undergo radiation therapy patient is undergoing tagged red blood cell scan no more GI bleed patient apparently will undergo radiation therapy
--- NOTE | 2017-07-06 17:04 | P.PN ---
Subjective Progress Note Date: 06/06/17 Principal diagnosis: rectal bleeding 2/2 prostate adenocarcinoma Patient reports he is feeling better today than when we last spoke. He still does have rectal discomfort, and feels he is still having blood in his bowel movements. I spoke with his nurse, who notes that his last couple BMs, have had very little gross blood. He has a couple episodes of fecal incontinence as well. The patient did start androgen deprivation. He admits to not getting up much. Objective - Vital Signs Vital signs: Vital Signs Temp 98.0 F 07/06/17 16:00 Pulse 102 H 07/06/17 16:00 Resp 13 07/06/17 16:00 BP 113/69 07/06/17 16:00 Pulse Ox 96 07/06/17 16:00 Intake & Output 07/05/17 07/06/17 07/06/17 18:59 06:59 18:59 Intake Total 240 240 550 Output Total 235 145 145 Balance 5 95 405 Weight 113 kg 113 kg Intake: IV 240 240 Sodium Chloride 0.9% 1, 240 240 000 ml @ 20 mls/hr IV . Q24H [facility] Rx#:[id number] Intake, IV Titration 550 Amount Piperacillin-Tazobactam 3 50 .375 gm In Dextrose/Water 1 50ml.bag @ 12.5 mls/hr IVPB Q12HR [facility] Rx#: [id number] Sodium Chloride 0.9% 500 500 ml @ 999 mls/hr IV .Q31M [facility] Rx#:[id number] Output: Urine 235 145 145 Other: Voiding Method Indwelling Catheter Indwelling Catheter Indwelling Catheter - Constitutional General appearance: Present: average body habitus, no acute distress - EENT Eyes: Present: EOMI, PERRLA ENT: Present: hearing grossly normal - Neck Neck: Absent: lymphadenopathy - Respiratory Respiratory: bilateral: CTA - Cardiovascular Rhythm: irregularly irregular - Gastrointestinal General gastrointestinal: Absent: organomegaly, tenderness - Integumentary Integumentary: Present: pale - Neurologic Neurologic: Present: CNII-XII intact. Absent: focal deficits - Musculoskeletal Musculoskeletal: Present: strength equal bilaterally - Psychiatric Psychiatric: Present: A&O x's 3, appropriate affect - Labs CBC & Chem 7: 07/06/17 04:33 07/06/17 04:33 Labs: Abnormal Lab Results - Last 24 Hours (Table) 07/05/17 07/05/17 07/06/17 Range/Units 18:18 21:05 04:33 RBC 3.29 L (4.30-5.90) m/uL Hgb 8.8 L (13.0-17.5) gm/dL Hct 29.1 L (39.0-53.0) % MCHC 30.3 L (31.0-37.0) g/dL RDW 16.6 H (11.5-15.5) % Sodium (137-145) mmol/L Carbon Dioxide (22-30) mmol/L BUN (9-20) mg/dL Creatinine (0.66-1.25) mg/dL Glucose (74-99) mg/dL POC Glucose (mg/dL) 179 H 177 H (75-99) mg/dL Calcium (8.4-10.2) mg/dL Total Protein (6.3-8.2) g/dL Albumin (3.5-5.0) g/dL 07/06/17 07/06/17 07/06/17 Range/Units 04:33 07:29 11:53 RBC (4.30-5.90) m/uL Hgb (13.0-17.5) gm/dL Hct (39.0-53.0) % MCHC (31.0-37.0) g/dL RDW (11.5-15.5) % Sodium 130 L (137-145) mmol/L Carbon Dioxide 19 L (22-30) mmol/L BUN 49 H (9-20) mg/dL Creatinine 3.20 H (0.66-1.25) mg/dL Glucose 146 H (74-99) mg/dL POC Glucose (mg/dL) 152 H 205 H (75-99) mg/dL Calcium 8.0 L (8.4-10.2) mg/dL Total Protein 5.3 L (6.3-8.2) g/dL Albumin 2.3 L (3.5-5.0) g/dL Microbiology - Last 24 Hours (Table) 07/04/17 03:45 Blood Culture Gram Stain - Final Blood Blood Culture - Final Methicillin resist S. aureus 07/05/17 04:28 Blood Culture - Preliminary Blood No Growth after 24 hours 12/26/17 17:58 Blood Culture Gram Stain - Final Blood Blood Culture - Final Methicillin resist S. aureus 07/04/17 15:27 Blood Culture - Preliminary Blood No Growth after 24 hours Assessment and Plan Plan: 1. Rectal bleed 08/10 prostate tumor: Hgb has been stable over past few days, per nursing less visible blood in stool. The patient did have a CT-simulation for palliative radiotherapy today. He was offered to undergo RT treatment today as well - since he was becoming uncomfortable he instead opted to go back upstairs to his room. He will start his radiotherapy this coming week, likely 4 -5 treatments total. Time with Patient: Greater than 30
[2017-07-06 17:31] LABS: Glucose,Whole Blood 200 mg/dL (75-99)
--- NOTE | 2017-07-06 18:12 | PN ---
PROGRESS NOTE Patient is seen for followup for chronic kidney disease and acute kidney injury. The patient has underlying prostatic cancer with penetration into the rectum and rectal bleeding. He is currently waiting for radiation therapy. The patient has underlying CKD stage IV with baseline creatinine about 2-2.5 mg/dL. Over the last couple of days patient's intake has been quite poor. His blood pressure is been marginal with systolic staying at about 100 mmHg. Urine output was low and patient received a couple of doses of Lasix yesterday. He is currently maintaining his urine output at about 20 mL/h. Serum creatinine was up to 3.2 from 2.8 mg/dL yesterday. EXAMINATION: Blood pressure is 113/69, heart rate 102 per minute. He is afebrile. Examination of the heart: S1, S2. Examination lungs: Bilateral breath sounds are heard. Abdomen is soft, nontender. Examination of lower extremities shows edema 1+ bilaterally with chronic skin changes. C[employer]ER exam is grossly intact. LAB: Shows sodium 130, potassium 4.0, chloride 102, CO2 is 19, BUN 49, serum creatinine 3.2, hemoglobin 8.8 g/dL. ASSESSMENT: 1. Acute kidney injury secondary to hypoperfusion, currently nonoliguric. Urine output had been low, currently staying marginal. I did give him a fluid bolus as he had poor oral intake. Urine output seems to have picked up and we will continue to monitor for now. 2. Prostatic cancer with penetration into the rectum with rectal bleeding, awaiting initiation of radiation therapy, being followed by Urology and started on Casodex. 3. MRSA bacteremia, source not clear, being followed by Infection Disease and currently maintained on daptomycin. 4. Pseudomonas urinary tract infection maintained on Zosyn. PLAN: Continue to monitor the urine output for now. May use and loop diuretics. His urine output remains low. Fluid bolus was given today and patient is encouraged to increase his oral intake. Overall prognosis is guarded. Patient appears to have deteriorated from about couple of weeks ago. MMODL / IJN: [id number] /
[2017-07-06 20:12] LABS: Glucose,Whole Blood 180 mg/dL (75-99)
[2017-07-07] MEDS: HYDROmorphone 1 MG/ML 1 ML SYRINGE IVP PRN ×4 (03:30→21:36)
[2017-07-07 07:16] LABS: Glucose,Whole Blood 131 mg/dL (75-99)
[2017-07-07] MEDS: INSULIN ASPART 100 UNIT/ML 1 ML 10 ML VIAL SQ SCH ×4 (07:21→21:41)
[2017-07-07] MEDS: SODIUM CHLORIDE 0.9% 1,000 ML IV SCH ×3 (07:23→21:38)
[2017-07-07] MEDS: METOPROLOL TARTRATE 50 MG TAB PO SCH ×3 (07:29→21:37)
[2017-07-07] MEDS: BICALUTAMIDE 50 MG TAB PO SCH ×2 (07:29→21:37)
[2017-07-07] MEDS: PANTOPRAZOLE 40 MG/10 ML VIAL IVP SCH (07:29)
[2017-07-07] MEDS: PIPERACILLIN-TAZOBACTAM 3.375 GM in DEXTROSE/WATER 1 50ML.BAG IVPB SCH ×2 (07:29→21:38)
--- NOTE | 2017-07-07 09:18 | PN ---
PROGRESS NOTE DATE OF SERVICE: 07/06/2017 REASON FOR FOLLOWUP: MRSA bacteremia and question of endocarditis and Pseudomonas UTI. INTERVAL HISTORY: The patient is afebrile, has been breathing more comfortably. Denies significant chest pain. Occasional cough. No abdominal pain. No nausea, vomiting. No diarrhea. EXAMINATION: Blood pressure is 119/61 with a pulse of 109, temperature of 97.6. He is 98% on 2 L nasal cannula. General description is an elderly male lying in bed in no distress. RESPIRATORY SYSTEM: Unlabored breathing. Clear to auscultation anteriorly. HEART: S1, S2. Regular rate and rhythm. ABDOMEN: Soft, no tenderness. LABS: Hemoglobin is 8.8 with white count 8.8. BUN of 49, creatinine 3.20. Blood cultures repeat on as well as has been negative. DIAGNOSTIC IMPRESSION AND PLAN: 1. Patient with MRSA bacteremia with concern for possible endocarditis. Will try to obtain the echo report and CHASITY has been requested. Keep the patient on daptomycin as he is high risk of nephrotoxicity from vancomycin. 2. Pseudomonas aeruginosa urinary tract infection, currently covered with Zosyn and that will be continue with transition to oral at time of discharge. MMODL / IJN: [id number] / IRENE
--- NOTE | 2017-07-07 09:21 | P.PN ---
Subjective The patient is in the hospital for rectal bleeding due to invasive prostatic carcinoma. He was started on total androgen blockade the bleeding has subsided somewhat. He will undergo radiation therapy to the rectum and tumor next week to aid in the control of the bleeding. The patient has been on intermittent catheterization but prefers an indwelling catheter for now. We'll leave this. Objective - Vital Signs Vital signs: Vital Signs Temp 97.0 F L 07/07/17 07:54 Pulse 99 07/07/17 08:00 Resp 16 07/07/17 08:00 BP 122/62 07/07/17 07:54 Pulse Ox 97 07/07/17 07:54 Intake & Output 07/06/17 07/07/17 07/07/17 18:59 06:59 18:59 Intake Total 550 Output Total 185 300 30 Balance 365 -300 -30 Weight 113 kg 112 kg Intake: Intake, IV Titration 550 Amount Piperacillin-Tazobactam 3 50 .375 gm In Dextrose/Water 1 50ml.bag @ 12.5 mls/hr IVPB Q12HR [facility] Rx#: [id number] Sodium Chloride 0.9% 500 500 ml @ 999 mls/hr IV .Q31M [facility] Rx#:[id number] Output: Urine 185 300 Stool 30 Other: Voiding Method Indwelling Catheter Indwelling Catheter Indwelling Catheter - Labs CBC & Chem 7: 07/06/17 04:33 07/06/17 04:33 Labs: Abnormal Lab Results - Last 24 Hours (Table) 07/06/17 07/06/17 07/06/17 Range/Units 11:53 17:28 20:10 POC Glucose (mg/dL) 205 H 200 H 180 H (75-99) mg/dL 07/07/17 Range/Units 07:14 POC Glucose (mg/dL) 131 H (75-99) mg/dL Microbiology - Last 24 Hours (Table) 07/05/17 04:28 Blood Culture - Preliminary Blood No Growth after 48 hours 07/04/17 15:27 Blood Culture - Preliminary Blood No Growth after 48 hours 07/04/17 03:45 Blood Culture Gram Stain - Final Blood Blood Culture - Final Methicillin resist S. aureus
[2017-07-07 11:22] LABS: Glucose,Whole Blood 165 mg/dL (75-99)
--- NOTE | 2017-07-07 12:23 | P.PN ---
Subjective Progress Note Date: 07/07/17 Principal diagnosis: This is a 81-year-old male followed up because of acute kidney injury, secondary to prerenal from decreased intake. He is also known with chronic kidney disease with a baseline creatinine of 2.5. He is diagnosed with prostatic CA with involvement of rectum and rectal bleeding with loose stools which is frequent and multiple. Patient denies any fever chills he is weak but denies any dizziness. No cough shortness of breath chest pain. His blood pressure is in the 110 range to 122 systolic. 24-hour intake is documented at 5 50 mL and output at 4 85 mL. He has an indwelling Ramesh catheter Objective - Vital Signs Vital signs: Vital Signs Temp 97.0 F L 07/07/17 07:54 Pulse 99 07/07/17 08:00 Resp 16 07/07/17 08:00 BP 122/62 07/07/17 07:54 Pulse Ox 97 07/07/17 07:54 Intake & Output 07/06/17 07/07/17 07/07/17 18:59 06:59 18:59 Intake Total 550 Output Total 185 300 30 Balance 365 -300 -30 Weight 113 kg 112 kg Intake: Intake, IV Titration 550 Amount Piperacillin-Tazobactam 3 50 .375 gm In Dextrose/Water 1 50ml.bag @ 12.5 mls/hr IVPB Q12HR [facility] Rx#: [id number] Sodium Chloride 0.9% 500 500 ml @ 999 mls/hr IV .Q31M [facility] Rx#:[id number] Output: Urine 185 300 Stool 30 Other: Voiding Method Indwelling Catheter Indwelling Catheter Indwelling Catheter On examination is awake alert oriented. HEENT exam no JVP neck is supple no facial asymmetry. Lungs are clear to auscultation percussion good air entry bilaterally Heart sounds are unremarkable for any murmur rub gallop Abdomen soft nontender no masses felt Extremity exam was mild edema Neuro logically awake alert oriented but generalized weakness. - Labs CBC & Chem 7: 07/06/17 04:33 07/06/17 04:33 Labs: Abnormal Lab Results - Last 24 Hours (Table) 07/06/17 07/06/17 07/07/17 Range/Units 17:28 20:10 07:14 POC Glucose (mg/dL) 200 H 180 H 131 H (75-99) mg/dL 07/07/17 Range/Units 11:14 POC Glucose (mg/dL) 165 H (75-99) mg/dL Microbiology - Last 24 Hours (Table) 07/05/17 04:28 Blood Culture - Preliminary Blood No Growth after 48 hours 07/04/17 15:27 Blood Culture - Preliminary Blood No Growth after 48 hours 07/04/17 03:45 Blood Culture Gram Stain - Final Blood Blood Culture - Final Methicillin resist S. aureus Assessment and Plan Assessment: Impression. 1. Acute kidney injury secondary to volume depletion and low blood pressure. He has diarrhea and rectal bleed. Creatinine has gone up slowly from 2.9-3.2 this morning. 2. Mild hyponatremia sodium from acute kidney injury and volume depletion. 3. Mild non-gap acidosis from loose stools. 4. 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 5. Anemia of chronic illness. Recommendation. Increase IV fluids to 100 mL an hour. Check orthostatic changes. Chest pain ultrasound the kidney to ensure there is no obstructive hydronephrosis from locally invasive prostate cancer
--- NOTE | 2017-07-07 13:43 | US ---
EXAMINATION TYPE: US kidneys/renal and bladder DATE OF EXAM: 07/07/2017 COMPARISON: US CLINICAL HISTORY: renal failure. EXAM MEASUREMENTS: Right Kidney: 11.7 x 5.0 x 5.3 cm Left Kidney: 10.7 x 3.9 x 4.9 cm Morbidly obese patient Right Kidney: No hydronephrosis or masses seen Left Kidney: No hydronephrosis or masses seen Bladder: not seen, empty There is no evidence for hydronephrosis at this point in time. No nephrolithiasis is seen. No ame s are identified. The urinary bladder is anechoic. Bilateral ureteral jets are seen. IMPRESSION: Negative retroperitoneal sonogram exam. No evidence of renal mass or obstruction.
[2017-07-07 17:17] LABS: Glucose,Whole Blood 173 mg/dL (75-99)
[2017-07-07 19:53] LABS: Glucose,Whole Blood 196 mg/dL (75-99)
[2017-07-08] MEDS: SODIUM CHLORIDE 0.9% 1,000 ML IV SCH ×4 (04:34→21:34)
[2017-07-08] MEDS: HYDROmorphone 1 MG/ML 1 ML SYRINGE IVP PRN ×3 (05:29→16:36)
[2017-07-08] MEDS: INSULIN ASPART 100 UNIT/ML 1 ML 10 ML VIAL SQ SCH ×4 (07:29→21:34)
[2017-07-08] MEDS: BICALUTAMIDE 50 MG TAB PO SCH ×2 (07:29→21:34)
[2017-07-08] MEDS: METOPROLOL TARTRATE 50 MG TAB PO SCH ×3 (07:29→21:33)
[2017-07-08 07:30] LABS: Glucose,Whole Blood 135 mg/dL (75-99)
[2017-07-08] MEDS: PANTOPRAZOLE 40 MG/10 ML VIAL IVP SCH (07:30)
--- NOTE | 2017-07-08 08:44 | PN ---
PROGRESS NOTE DATE OF SERVICE: 07/07/2017 INTERVAL HISTORY: This 81-year-old gentleman who was admitted with sepsis and UTI, and multiple medical problems has been on IV antibiotics at this time. The patient had MRSA and Pseudomonas from the urine and MRSA from the blood also. Patient closely monitored. Patient on IV antibiotics. Infectious disease following the patient closely. PAST MEDICAL HISTORY: Reviewed. REVIEW OF SYSTEM: Cardiovascular: No angina or palpitations. Respiratory: As mentioned earlier. GI as mentioned earlier. : No dysuria. Central nervous system: No numbness, weakness. CURRENT MEDICATIONS: 1. [place] 7.5 p.o. q8h p.r.n. 2. Casodex 50 mg b.i.d. 3. Daptomycin 650 q.48h hours. 5. Colace 100 mg b.i.d. 6. Dilaudid 0.5 q.4h p.r.n. 7. NovoLog a.c. and q.h.s. 8. Melatonin 3 mg q.h.s. 9. Lopressor 50 mg t.i.d. 10.Protonix 40 mg daily. 11.Zosyn 3.5 IV b.i.d. 12.MiraLAX 17 g daily. 13.Ultram 50 mg q.i.d. p.r.n. PHYSICAL EXAM: Patient is alert, oriented x3. Pulse 95. Blood pressure 127/57 orthostatic, respirations 16, temp is normal. Pulse ox is 97% on 2 L. HEENT is conjunctivae normal. Oral mucosa moist. Neck is no jugular venous distention. No carotid bruit. No lymph node enlargement. Cardiovascular System: S1, S2 muffled. Respirations : Breath sounds diminished in the bases. No rhonchi and no crackles. ABDOMEN: Soft. Legs are no edema, no swelling. Nervous system: Diffusely weak. LAB: Accu-Cheks 196 otherwise WBC 8.8, hemoglobin is 8.8, sodium is 130 and creatinine 3.20. ASSESSMENT: 1. Urinary tract infection with sepsis related to Ramesh catheter present on admission with chronic Ramesh catheter. 2. Methicillin-resistant Staphylococcus aureus sepsis and Pseudomonas in the urine. 3. Rule out bacterial endocarditis. 4. Invasive prostatic carcinoma. 5. Chronic kidney disease stage 3. 6. Hyperlipidemia. 7. Hypertension. 8. Benign prostatic hypertrophy. 9. Acute tubular necrosis and acute renal failure. 10.Acute pulmonary edema. 11.History of gastrointestinal bleed. RECOMMENDATIONS AND DISCUSSION: Recommend to continue current management and continue symptomatic treatment. Follow closely with multiple consultations including Nephrology and as well as Infectious Disease. CHASITY has been requested. Continue the antibiotics. Repeat labs. The creatinine is slightly worsened, but currently stable at this time. Nephrology is following the patient closely with urology. Radiation therapy of the rectum is being planned next week. Otherwise, overall prognosis extremely guarded because of multiple complex medical issues and further recommendations to follow. MMODL / IJN: [id number] / MTDD
[2017-07-08] MEDS: PIPERACILLIN-TAZOBACTAM 3.375 GM in DEXTROSE/WATER 1 50ML.BAG IVPB SCH ×2 (10:25→21:34)
--- NOTE | 2017-07-08 11:22 | P.PN ---
Subjective Progress Note Date: 07/08/17 Principal diagnosis: This is a 81-year-old male followed up because of acute kidney injury, secondary to prerenal from decreased intake. He is also known with chronic kidney disease with a baseline creatinine of 2.5. He is diagnosed with prostatic CA with involvement of rectum and rectal bleeding with loose stools which is frequent and multiple. Patient continues to complain of rectal pain otherwise denies any fever chills he is weak but denies any dizziness. No cough shortness of breath chest pain. His blood pressure is in [id number] systolic. 24-hour intake is documented at 330 mL only. He has a Ramesh catheter. Intake is documented 0. He has an indwelling Ramesh catheter He is known with coronary artery disease diabetes hypertension Objective - Vital Signs Vital signs: Vital Signs Temp 97.6 F 07/08/17 08:15 Pulse 98 07/08/17 08:15 Resp 18 07/08/17 08:15 BP 121/66 07/08/17 08:15 Pulse Ox 99 07/08/17 08:15 Intake & Output 07/07/17 07/08/17 07/08/17 18:59 06:59 18:59 Output Total 230 100 Balance -230 -100 Weight 115 kg 115 kg Output: Urine 200 100 Stool 30 Other: Voiding Method Indwelling Catheter Indwelling Catheter Indwelling Catheter # Bowel Movements 1 On examination is awake alert oriented HEENT exam no JVP neck is supple no facial asymmetry Lungs are significant for occasional end expiratory wheezing but good air entry bilaterally no dullness percussion Heart sounds are unremarkable for any murmur rub gallop Abdomen soft nontender no organomegaly ascites masses Extremity exam was trace edema Neurologically awake alert oriented but generalized weakness. - Labs CBC & Chem 7: 07/06/17 04:33 07/06/17 04:33 Labs: Abnormal Lab Results - Last 24 Hours (Table) 07/07/17 07/07/17 07/07/17 Range/Units 11:14 17:11 19:51 POC Glucose (mg/dL) 165 H 173 H 196 H (75-99) mg/dL 07/08/17 Range/Units 07:28 POC Glucose (mg/dL) 135 H (75-99) mg/dL Microbiology - Last 24 Hours (Table) 07/05/17 04:28 Blood Culture - Preliminary Blood No Growth after 72 hours 07/04/17 15:27 Blood Culture - Preliminary Blood No Growth after 72 hours Assessment and Plan Assessment: Impression. 1. Acute kidney injury secondary to volume depletion and low blood pressure. He has diarrhea and rectal bleed. Creatinine has gone up slowly from 2.9-3.2 as of yesterday before yesterday morning on 07/06/2017. Labs today are ordered and results are pending. He seemed to be worsening but because of shortness of breath and wheezing we will need a chest x-ray to further define his volume status and give him IV fluids if his chest x-ray is clear. His IV fluid was increased yesterday 100 mL an hour. An ultrasound of kidneys done shows no hydronephrosis or bladder retention. 2. Mild hyponatremia sodium from acute kidney injury and volume depletion. 3. Mild non-gap acidosis from loose stools. 4. 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 5. Anemia of chronic illness. Recommendation. Continue IV fluids to 100 mL an hour. Check orthostatic changes. Laboratory chest x-ray further clarify his volume status as I'm giving fluid and is getting short of breath
[2017-07-08 11:45] LABS: Phosphorus 5.2 mg/dL (2.5-4.5); Potassium 4.3 mmol/L (3.5-5.1)
[2017-07-08 12:01] LABS: Amorphous Sediment,Urine Few /hpf; Appearance,Urine Cloudy (Clear); Bilirubin,Urine Negative (Negative); Blood,Urine Small (Negative); Color,Urine Yellow; Glucose,Urine (UA) Negative (Negative); Ketones,Urine Negative (Negative); Leukocyte Esterase,Urine Large (Negative); Nitrite,Urine Negative (Negative); Protein,Urine 1+ (Negative); RBC,Urine 6 /hpf (0-5); Specific Gravity,Urine 1.015 (1.001-1.035); Urobilinogen,Urine <2.0 mg/dL (<2.0); WBC,Urine 9 /hpf (0-5)
--- NOTE | 2017-07-08 12:15 | XR ---
EXAMINATION TYPE: XR chest 2V DATE OF EXAM: 07/08/2017 COMPARISON: 06/27/2017 HISTORY: Heart failure TECHNIQUE: Frontal and lateral views of the chest are obtained. FINDINGS: Heart is mildly enlarged. There is pulmonary vascular congestion. Thoracic aorta is athero matous. There is blunting of costophrenic angles. There is infiltrate at both lung bases and more on the left side. IMPRESSION: Congestive heart failure with pulmonary lower lobe infiltrates. This is slightly worse t ellis last exam.
[2017-07-08 12:16] LABS: Glucose,Whole Blood 144 mg/dL (75-99)
[2017-07-08 16:32] LABS: Glucose,Whole Blood 235 mg/dL (75-99)
[2017-07-08 20:54] LABS: Glucose,Whole Blood 282 mg/dL (75-99)
[2017-07-09] MEDS: HYDROmorphone 1 MG/ML 1 ML SYRINGE IVP PRN ×4 (02:11→23:34)
[2017-07-09] MEDS: SODIUM CHLORIDE 0.9% 1,000 ML IV SCH ×5 (04:59→21:32)
[2017-07-09 07:15] LABS: Glucose,Whole Blood 160 mg/dL (75-99)
[2017-07-09] MEDS: PANTOPRAZOLE 40 MG/10 ML VIAL IVP SCH (07:19)
[2017-07-09] MEDS: METOPROLOL TARTRATE 50 MG TAB PO SCH ×3 (07:19→21:35)
[2017-07-09] MEDS: BICALUTAMIDE 50 MG TAB PO SCH ×2 (07:19→21:35)
[2017-07-09 07:21] LABS: Basophils % (A) 0 %; Eosinophils # (A) 0.6 k/uL (0-0.7); Eosinophils % (A) 5 %; HCT 27.3 % (39.0-53.0); HGB 8.5 gm/dL (13.0-17.5); Hypochromasia Moderate; Lymphocytes # (A) 1.7 k/uL (1.0-4.8); Lymphocytes % (A) 15 %; MCH 27.5 pg (25.0-35.0); MCHC 31.4 g/dL (31.0-37.0); MCV 87.7 fL (80.0-100.0); Mean Platelet Volume 7.6; Monocytes # (A) 0.8 k/uL (0-1.0); Monocytes % (A) 7 %; Neutrophils % (A) 71 %; Platelet Count 227 k/uL (150-450); Poikilocytosis Slight; RBC 3.11 m/uL (4.30-5.90); RDW 15.7 % (11.5-15.5); WBC 11.3 k/uL (3.8-10.6)
[2017-07-09] MEDS: PIPERACILLIN-TAZOBACTAM 3.375 GM in DEXTROSE/WATER 1 50ML.BAG IVPB SCH (07:24)
[2017-07-09] MEDS: INSULIN ASPART 100 UNIT/ML 1 ML 10 ML VIAL SQ SCH ×4 (07:29→21:35)
[2017-07-09 08:37] LABS: Calcium 7.8 mg/dL (8.4-10.2)
[2017-07-09 08:39] LABS: Potassium 4.2 mmol/L (3.5-5.1)
--- NOTE | 2017-07-09 10:38 | PN ---
PROGRESS NOTE DATE OF SERVICE: 07/08/2017. REASON FOR FOLLOW UP: MRSA bacteremia. INTERVAL HISTORY: The patient is afebrile, has been breathing comfortably. Denies significant chest pain, shortness of breath or cough. No nausea, vomiting or diarrhea. EXAMINATION: Blood pressure 122/79 with a pulse of 103, temperature of 97. He is 99% 2 L nasal cannula. General description is an elderly male lying in bed in no distress. RESPIRATORY SYSTEM: Unlabored breathing. Clear to auscultation anteriorly. HEART: S1, S2. Regular rate and rhythm. ABDOMEN: Soft, no tenderness. LAB: Followup blood cultures 07/04 and 07/05 have been negative. DIAGNOSTIC IMPRESSION AND PLAN: 1. Patient with MRSA bacteremia with concern for possible endocarditis. I was informed by the patient in the ICU that echocardiogram did show mitral valve vegetation with CHASITY recommended. Unfortunately still unable to find that report. This will be discussed further with Cardiology. Keep the patient on daptomycin at this point. Continue supportive care. 2. Patient with Pseudomonas urinary tract infection where the patient is currently on Zosyn. Will transition to oral. Continue supportive care. MMODL / IJN: [id number] /
--- NOTE | 2017-07-09 10:54 | PN ---
PROGRESS NOTE DATE OF SERVICE: 07/08/2017 This 81-year-old gentleman admitted with UTI also had possibly MRSA sepsis also. The patient also had Pseudomonas in the urine. Patient also complaining of shortness of breath. The patient has elevated creatinine also. Endocarditis has been planned to be ruled out. No chest pain. No palpitations. Patient complains of tiredness and weakness at this time and shortness of breath. PHYSICAL EXAMINATION: On exam, alert and oriented times three. Pulse is 103. Blood pressure is 124/70, respirations 16, temperature 97 degrees, pulse ox 98% on 2 L. HEENT is conjunctivae normal. Oral mucosa is moist. Neck is no jugular venous distention. No carotid bruit. Cardiovascular: S1, S2 muffled. Respirations: Breath sounds diminished in the bases. A few scattered rhonchi and crackles. ABDOMEN: Soft. Nervous system: Diffusely weak. LABS: Sodium 133 with creatinine 4.20, uric acid 10. ASSESSMENT: 1. Urinary tract infection with sepsis related to Ramesh catheter present on admission with chronic Ramesh catheter. 2. Methicillin-resistant Staphylococcus aureus sepsis and Pseudomonas in the urine. 3. Rule out bacterial endocarditis. 4. Invasive prostate carcinoma. 5. Acute on chronic kidney disease with baseline chronic kidney disease stage 3. 6. Hyperlipidemia. 7. Hypertension. 8. Benign prostatic hypertrophy. 9. Acute tubular necrosis and acute renal failure. 10.Acute pulmonary edema. 11.History of gastrointestinal bleed. 12.FULL CODE. 13.Hyperuricemia. RECOMMENDATIONS AND DISCUSSION: Continue current medications, management and symptomatic treatment. Otherwise at this time closely monitor with Nephrology. Otherwise repeat labs. Repeat chest x-ray has been ordered which showed CHF with pulmonary infiltrates slightly worsened compared to the last exam. The abdominal bladder ultrasound shows no evidence of hydronephrosis. Once again, the prognosis guarded because of multiple complex medical issues. I recommend repeat labs. Continue to follow with Infectious Disease. Further recommendations to follow. MMODL / IJN: [id number] /
[2017-07-09 11:23] LABS: Glucose,Whole Blood 254 mg/dL (75-99)
--- NOTE | 2017-07-09 17:03 | PN ---
PROGRESS NOTE Patient is seen for followup for chronic kidney disease and acute kidney injury. His renal function continues to worsen. The patient has an indwelling Ramesh catheter with good urine output. There is no evidence of obstruction noted on his ultrasound. He remains with poor oral intake and the loss of appetite. His creatinine today is at 4.58. I have discussed renal replacement therapy with him and have advised him that he may perhaps improve his appetite post dialysis and we may need to start renal replacement therapy this admission. EXAMINATION: Blood pressure is 113/70, heart rate 108 per minute. Patient is afebrile. Examination of the heart: S1, S2. Examination lungs: Bilateral breath sounds are heard. Abdomen is soft, nontender. Examination lower extremity shows edema 2+ bilaterally. HOSIERY BAGGER exam is grossly intact. LAB: Show sodium 131, potassium 4.2, chloride 104, BUN 54, serum creatinine 4.58, hemoglobin 8.5 g/dL. ASSESSMENT: 1. Acute kidney injury on top of chronic kidney disease. Acute tubular necrosis versus progression of his chronic kidney disease. He may be uremic and I have discussed renal replacement therapy with the patient. If his renal function is again worse tomorrow, we will need to start dialysis. There is no evidence of obstructive uropathy and there are no nephrotoxic agents on board. The patient remains with poor appetite and decreased oral intake, possibly related to some degree of uremia. He is maintained on IV fluids as well. 2. Anemia with no active bleeding noted, maintained on Aranesp. 3. Recent diagnosis of prostatic cancer with invasion into the rectum and admitted with rectal bleeding. Plan for radiation therapy down the road. 4. MRSA bacteremia. Maintained on daptomycin. 5. Urinary tract infection with Pseudomonas aeruginosa, maintained on Zosyn. PLAN: Repeat labs in a.m. Decrease IV fluids and consider renal replacement therapy if renal function is worse tomorrow. MMODL / IJN: [id number] /
[2017-07-09 17:10] LABS: Glucose,Whole Blood 251 mg/dL (75-99)
[2017-07-09 19:38] LABS: Glucose,Whole Blood 242 mg/dL (75-99)
[2017-07-09] MEDS: CIPROFLOXACIN HCL 500 MG TAB PO SCH (21:35)
[2017-07-10] MEDS: HYDROmorphone 1 MG/ML 1 ML SYRINGE IVP PRN ×2 (04:09→08:16)
--- NOTE | 2017-07-10 07:31 | PN ---
PROGRESS NOTE DATE OF SERVICE: 07/09/2017 This 81-year-old gentleman who was admitted with UTI with sepsis related to Ramesh catheter is being closely monitored. Patient also had multiple other medical issues including MRSA and as well as Pseudomonas grown from the culture. The patient is being also evaluated for to rule out the possibility of endocarditis. The patient is also being evaluated for palliative radiation for metastatic prostate cancer as well. Otherwise the patient is being closely monitored. PAST MEDICAL HISTORY: Reviewed. PHYSICAL EXAM: The patient is alert, oriented x3. Pulse 103, blood pressure 113/70, respirations 20, temperature 96.8, pulse ox 99% on 3 L. HEENT: Conjunctivae normal. Oral mucosa moist. Neck is no jugular venous distention. No carotid bruit. No lymph node enlargement. CARDIOVASCULAR: S1 and S2 muffled. RESPIRATORY; Breath sounds diminished at the bases. A few scattered rhonchi and crackles. ABDOMEN: Soft, nontender. No mass palpable. LEGS: No edema, no swelling. NERVOUS SYSTEM: No focal deficits. LABS: WBC 11.3, hemoglobin 8.5. Sodium 131. Creatinine is 4.58. ASSESSMENT: 1. Urinary tract infection with sepsis related to Ramesh catheter present on admission secondary to chronic Ramesh catheter. 2. Methicillin-resistant Staphylococcus aureus sepsis and Pseudomonas in the urine. 3. Rule out bacterial endocarditis. 4. Invasive prostate cancer. 5. Acute on chronic kidney disease with baseline chronic kidney disease stage 3. 6. Hyperlipidemia. 7. Hypertension. 8. Benign prostatic hypertrophy. 9. Acute tubular necrosis acute renal failure. 10.Acute pulmonary edema. 11.Acute gastrointestinal bleed. 12.Hyperuricemia. 13.FULL CODE. RECOMMENDATIONS AND DISCUSSION: This 81-year-old gentleman who presented with multiple complex medical issues, will monitor the patient closely. Continue the current medications and symptomatic treatment. Otherwise at this time I recommend continue with broad-spectrum IV antibiotics and I would also recommend Cardiology evaluation regarding possible CHASITY. The prognosis is guarded because of multiple complex medical issues. Further recommendations to follow. MMODL / IJN: [id number] / MTDD
[2017-07-10 07:35] LABS: Glucose,Whole Blood 134 mg/dL (75-99)
[2017-07-10] MEDS: INSULIN ASPART 100 UNIT/ML 1 ML 10 ML VIAL SQ SCH ×4 (07:47→22:56)
[2017-07-10 07:48] LABS: Basophils % (A) 0 %; Eosinophils # (A) 0.4 k/uL (0-0.7); Eosinophils % (A) 6 %; HCT 27.5 % (39.0-53.0); HGB 8.1 gm/dL (13.0-17.5); Hypochromasia Marked; Lymphocytes # (A) 1.4 k/uL (1.0-4.8); Lymphocytes % (A) 19 %; MCH 26.6 pg (25.0-35.0); MCHC 29.7 g/dL (31.0-37.0); MCV 89.5 fL (80.0-100.0); Mean Platelet Volume 6.9; Monocytes # (A) 0.5 k/uL (0-1.0); Monocytes % (A) 7 %; Neutrophils # (A) 5.3 k/uL (1.3-7.7); Neutrophils % (A) 68 %; Platelet Count 250 k/uL (150-450); Poikilocytosis Slight; RBC 3.07 m/uL (4.30-5.90); RDW 15.7 % (11.5-15.5); WBC 7.7 k/uL (3.8-10.6)
[2017-07-10] MEDS: SODIUM CHLORIDE 0.9% 1,000 ML IV SCH (07:48)
[2017-07-10] MEDS: METOPROLOL TARTRATE 50 MG TAB PO SCH ×2 (07:50→17:53)
[2017-07-10] MEDS: PANTOPRAZOLE 40 MG/10 ML VIAL IVP SCH (07:51)
[2017-07-10] MEDS: BICALUTAMIDE 50 MG TAB PO SCH ×2 (07:51→20:15)
[2017-07-10] MEDS: CHOLESTYRAMINE (WITH SUGAR) 4 GM PACKET PO SCH ×2 (07:51→18:07)
[2017-07-10] MEDS: CIPROFLOXACIN HCL 500 MG TAB PO SCH ×2 (07:51→20:15)
--- NOTE | 2017-07-10 10:06 | PN ---
PROGRESS NOTE DATE OF SERVICE: 07/09/2017 REASON FOR FOLLOWUP: 1. Methicillin-resistant Staphylococcus aureus bacteremia and a question of endocarditis. 2. Pseudomonas urinary tract infection. INTERVAL HISTORY: The patient is afebrile, has been breathing comfortably. The patient with No significant diarrhea, but no significant abdominal pain, some nausea but no vomiting and low appetite. EXAMINATION: Blood pressure is 115/65 with a pulse of 100, temperature is 97. He is 100% on 2 L nasal cannula. General description is an elderly male lying in bed in no distress. Respiratory system: Unlabored breathing, clear to auscultation anteriorly. Heart S1, S2 regular rate and rhythm. Abdomen soft, no tenderness. LABS: Hemoglobin 8.5, white count 7.3 with a BUN of 54, creatinine 4.58. DIAGNOSTIC IMPRESSION AND PLAN: 1. Patient with Methicillin-resistant Staphylococcus aureus bacteremia A CHASITY will be ordered. Follow up blood culture has been negative. Give the patient Daptomycin. 2. Pseudomonas urinary tract infection with significant diarrhea with Zosyn. Antibiotic was switched to p.o. Cipro and add Questran for diarrhea. Continue supportive care. MMODL / IJN: [id number] / IRENE
[2017-07-10 11:31] LABS: Glucose,Whole Blood 206 mg/dL (75-99)
[2017-07-10] MEDS: IPRATROPIUM-ALBUTEROL 3 ML NEB INHALATION PRN ×2 (12:32→23:47)
--- NOTE | 2017-07-10 13:20 | XR ---
EXAMINATION TYPE: XR chest 1V portable DATE OF EXAM: 07/10/2017 COMPARISON: 07/08/2017 HISTORY: Shortness of breath TECHNIQUE: Single frontal view of the chest is obtained. FINDINGS: There is increasing opacity throughout the lungs most confluent within the right lung in c omparison to the left. Specifically most confluent areas are within the right infrahilar region and r ight upper lung as well as the retrocardiac airspace. Moderate pulmonary vascular congestion and inte rstitial edema are again noted. Cardiac silhouette is again enlarged and there is engorgement of the superior vena cava/azygos confluence indicative of fluid overload. Osseous structures are grossly int act. IMPRESSION: Continued worsening of the radiographic sequela most fitting for decompensated congestiv e heart failure and altered focal confluent pulmonary edema although superimposed pneumonia is possib le.
[2017-07-10] MEDS ORDERED: FUROSEMIDE 10 MG/ML 10 ML VIAL IV STA ×2 (13:46→17:42)
--- NOTE | 2017-07-10 14:29 | P.PN ---
Subjective Progress Note Date: 07/10/17 Principal diagnosis: rectal bleed 2/2 prostate adenoca The patient was evaluated today prior to coming down for radiotherapy. Unfortunately, he has become quite dyspneic over the past couple hours. I spoke to the patient immediately after a breathing treatment, and he felt it was very difficult for him to breathe. He is currently on 6L 02. He has had progressive renal failure and planning for dialysis catheter placement today. Objective - Vital Signs Vital signs: Vital Signs Temp 96.9 F L 07/10/17 08:14 Pulse 76 07/10/17 12:43 Resp 18 07/10/17 08:14 BP 119/60 07/10/17 08:14 Pulse Ox 92 L 07/10/17 12:34 Intake & Output 07/09/17 07/10/17 07/10/17 18:59 06:59 18:59 Intake Total 480 Output Total 152 50 1 Balance -152 -50 479 Weight 118 kg 118 kg Intake: Oral 480 Output: Urine 150 50 Uretheral (Ramesh) 150 50 Stool 2 1 Other: Voiding Method Indwelling Catheter Indwelling Catheter Indwelling Catheter # Bowel Movements 1 1 - Constitutional General appearance: Present: mild distress - EENT Eyes: Present: EOMI, PERRLA ENT: Present: hearing grossly normal - Respiratory Respiratory: bilateral: diminished (lung bases), wheezing - Cardiovascular Rhythm: irregularly irregular - Gastrointestinal General gastrointestinal: Present: decreased bowel sounds - Integumentary Integumentary: Present: calor - Neurologic Neurologic: Present: CNII-XII intact - Psychiatric Psychiatric: Present: A&O x's 3, appropriate affect - Labs CBC & Chem 7: 07/10/17 07:07 07/10/17 07:07 Labs: Abnormal Lab Results - Last 24 Hours (Table) 07/09/17 07/09/17 07/10/17 Range/Units 17:08 19:36 07:07 RBC 3.07 L (4.30-5.90) m/uL Hgb 8.1 L (13.0-17.5) gm/dL Hct 27.5 L (39.0-53.0) % MCHC 29.7 L (31.0-37.0) g/dL RDW 15.7 H (11.5-15.5) % Sodium (137-145) mmol/L Carbon Dioxide (22-30) mmol/L BUN (9-20) mg/dL Creatinine (0.66-1.25) mg/dL Glucose (74-99) mg/dL POC Glucose (mg/dL) 251 H 242 H (75-99) mg/dL Calcium (8.4-10.2) mg/dL 07/10/17 07/10/17 07/10/17 Range/Units 07:07 07:30 11:28 RBC (4.30-5.90) m/uL Hgb (13.0-17.5) gm/dL Hct (39.0-53.0) % MCHC (31.0-37.0) g/dL RDW (11.5-15.5) % Sodium 133 L (137-145) mmol/L Carbon Dioxide 18 L (22-30) mmol/L BUN 55 H (9-20) mg/dL Creatinine 5.40 H* (0.66-1.25) mg/dL Glucose 130 H (74-99) mg/dL POC Glucose (mg/dL) 134 H 206 H (75-99) mg/dL Calcium 8.0 L (8.4-10.2) mg/dL Microbiology - Last 24 Hours (Table) 07/05/17 04:28 Blood Culture - Preliminary Blood No Growth after 120 hours 07/04/17 15:27 Blood Culture - Preliminary Blood No Growth after 120 hours 07/08/17 12:57 Blood Culture - Preliminary Blood No Growth after 24 hours 07/08/17 12:40 Blood Culture - Preliminary Blood No Growth after 24 hours - Imaging and Cardiology Chest x-ray: report reviewed, image reviewed Assessment and Plan Plan: 1. Acute respiratory distress: CXR consistent with worsening heart failure. Patient did not feel he could lay down for radiotherapy and I did not feel that the patient should be transported off the floor in his current state. We will re-assess the patient tomorrow. If his condition is improved we will initiate his palliative RT. 2. Rectal bleed 2/ prostate cancer: The patient's hemoglobin has been stable. Radiotherapy planning is done for palliative treatment. Time with Patient: Less than 30
--- NOTE | 2017-07-10 15:09 | PN ---
PROGRESS NOTE Patient is seen for followup for renal failure. His renal function continues to deteriorate and I discussed renal replacement therapy with the patient yesterday. He is currently in agreement to start dialysis. Dr. Escobedo will be consulted and will plan on his first dialysis treatment most likely tomorrow. Patient continues to have poor appetite. He is not nauseated and is also complaining of generalized weakness. He is scheduled for radiation therapy today. EXAMINATION: Blood pressure is 119/60, heart rate 68 per minute. He is afebrile. Examination of the heart: S1, S2. Examination lungs: Bilateral breath sounds are heard. Abdomen is soft, nontender. Examination lower extremities shows edema 2+ bilaterally. PARKING METER INSTALLER exam is grossly intact. No asterixis are noted. LAB: Show sodium 133, potassium 4.0, serum creatinine 5.4, BUN 55, hemoglobin 8.1 g/dL. ASSESSMENT: 1. Chronic kidney disease and cancer stage IV with progression of renal failure. Will start patient on renal replacement therapy. Vascular surgery will be consulted and plan on first dialysis most likely tomorrow. The patient's symptoms could be explained by uremia, particularly the loss of appetite and increased weakness. 2. MRSA bacteremia, being followed by Infectious Disease, maintained on daptomycin. Consideration for possible CHASITY. Rule out vascular endocarditis. 3. Urinary tract infection with Pseudomonas. 4. Invasive prostatic cancer. 5. Volume overload. PLAN: Proceed with Vascular Surgery consult for placement of dialysis catheter and we will arrange for hemodialysis in a.m. DC the IV fluids. MMRADHAL / AMINTAN: [id number] /
--- NOTE | 2017-07-10 16:01 | P.PN ---
Subjective Progress Note Date: 07/10/17 Principal diagnosis: Acute hypoxic respiratory failure secondary to acute pulmonary edema due to acute renal failure This is a pleasant 81-year-old gentleman who resides at an extended care facility who has a history of coronary artery disease, paroxysmal atrial fibrillation, diabetes mellitus, hyperlipidemia, hypertension, shingles, MRSA infection in the blood and urine. 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 A recent PET scan revealed large hypermetabolic lesion presumed right-sided prostatic carcinoma there is also evidence of extra Chiller extension into the rectum and into the right pelvis causing osseous destruction of medial right MP a pelvic ramus near pubic symphysis. There is metastatic lesion to the liver as well. Patient was readmitted yesterday with fever and generalized weakness. Gentleman admitted to the regular medical floor with suspected urinary tract infection and sepsis. Last evening he developed bright red bleeding from the rectum approximately 50 MLS. He did have a drop in his systolic blood pressure into the 70s and 80s. His hemoglobin was 7.0. He was transferred here to the intensive care unit. He did not require any pressors. Did receive 2 units of packed red blood cells in his current hemoglobin is 8.6. White count 11.7. Creatinine 3.10. AST 158, ALT 106 Blood cultures are revealing presumptive MRSA. His chest x-ray shows mild fluid volume overload with small effusions. He is maintaining O2 saturations in the upper 90s on 2 L/m per nasal cannula. The patient is seen again today 07/04/2017 in follow-up in the intensive care unit. He is oncology overflow patient. He is awake and alert in no acute distress. He's had no further significant rectal bleeding. Hemoglobin 8.8. He has remained hemodynamically stable. Not requiring any pressors. He is found to have MRSA bacteria anemia and gram-negative bacilli in the urine. ID is on the case. He remains on daptomycin and Zosyn. His chest x-ray continues to show evidence of fluid volume overload. He is maintaining O2 saturations in the high 90s on 2 L/m per nasal cannula. He remains in atrial fibrillation with varying ventricular response. Currently off anticoagulants. 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 The plan is to undergo CT simulation and delivery of approximately 4-5 doses. Progress note dated 07/05/2017 This is a 81-year-old male who is an oncology overflow patient. The patient could be transferred out to the oncology floor. He came in with some rectal bleeding. The reason for the rectal bleeding is because he has prostate cancer which apparently is rotated into the bowel. The plan for him is apparently on radiation therapy. The patient is doing relatively well. Feeling a bit weak. The patient does not require any pressors at this time. Hemodynamically stable and his hemoglobin has been stable. The patient remains on daptomycin and Zosyn. The patient otherwise is doing relatively relatively well. Remains on O2 at 2 L. Currently off anticoagulants. Progress note dated 07/06/2017 81-year-old male with a history of off GI bleed. The patient has a history of prostate cancer which is eroded into the rectum. He's an overflow oncology patient can be transferred out to the oncology floor or to general medical floor. The patient's very stable this point. Blood pressure is been stable. Respiratory status is stable. The patient's on O2 at 2 L by nasal cannula and IV of saline at KVO. The patient is not requiring any additional blood. The patient remains on daptomycin and Zosyn. Hemodynamically stable. The plan is for him to get radiation therapy to the prostate area to hopefully stem the bleeding from the lesion is eroding into the rectum. The patient is off all anticoagulants at this time. On 07/10/2017 patient is seen in follow-up on medical surgical floor. He developed an acute episode of respiratory distress, severe orthopnea, and acute dyspnea. His lab work today was reviewed, there is no evidence of leukocytosis , WBC is 7.7, hemoglobin is 8.1, his sodium is 133, his carbon dioxide was 18, his BUN is 55, and creatinine is 5.40. Nephrology has discussed initiation of hemodialysis with him today, patient is in agreement. His oxygenation requirements have increased, this morning he was on 2 L per nasal cannula with O2 sat at 97%, through the day and has deteriorated, and patient is not requiring 5-6 L per nasal cannula with O2 sat at 92-93%. Lung sounds are positive for coarse rales throughout the lung doan bilaterally. He remains afebrile. No other episodes of rectal bleeding was observed. Patient was actually due to start radiation therapy for his prostate cancer today, however in view of his worsening respiratory status, was put on hold. Stat chest x-ray was obtained, and shows worsening decompensated congestive heart failure and confluent pulmonary edema. 80 mg of Lasix IV was given, with no response, patient only made 10 mL of urine. Patient has been progressively more oliguric over the last few days. Has been complaining of worsening appetite and weakness. Dr. Escobedo was consulted for placement of hemodialysis catheter, patient is unable to lay down flat, patient may have to go on the BiPAP support and hemodialysis catheter may have to be placed in the femoral area. We will transfer the patient to the intensive care, and request Dr. Escobedo to place a hemodialysis catheter STEPHEN and initiate hemodialysis as soon as possible. Objective - Vital Signs Vital signs: Vital Signs Temp 96.9 F L 07/10/17 15:42 Pulse 72 07/10/17 15:42 Resp 22 07/10/17 15:42 BP 131/71 07/10/17 15:42 Pulse Ox 93 L 07/10/17 15:42 Intake & Output 07/09/17 07/10/17 07/10/17 18:59 06:59 18:59 Intake Total 480 Output Total 152 50 1 Balance -152 -50 479 Weight 118 kg 118 kg Intake: Oral 480 Output: Urine 150 50 Uretheral (Ramesh) 150 50 Stool 2 1 Other: Voiding Method Indwelling Catheter Indwelling Catheter Indwelling Catheter # Bowel Movements 1 1 - Exam No acute distress, oriented 3. HEENT examination is grossly unremarkable. Mucous membranes are moist. No oral lesions. Neck supple. Full range of motion. No adenopathy thyromegaly or neck vein distention. Cardiovascular examination reveals irregular rhythm. S1-S2 normal. No S3 or S4. No discernible murmur noted. Lungs sounds are positive for coarse rales throughout the lung doan. Patient is significantly orthopneic Abdomen soft bowel sounds are heard. No masses or tenderness. Extremities are intact. No cyanosis clubbing or edema. Skin is without rash or lesion. Neurologic examination is brief but nonfocal. - Labs CBC & Chem 7: 07/10/17 07:07 07/10/17 07:07 Labs: Abnormal Lab Results - Last 24 Hours (Table) 07/09/17 07/09/17 07/10/17 Range/Units 17:08 19:36 07:07 RBC 3.07 L (4.30-5.90) m/uL Hgb 8.1 L (13.0-17.5) gm/dL Hct 27.5 L (39.0-53.0) % MCHC 29.7 L (31.0-37.0) g/dL RDW 15.7 H (11.5-15.5) % Sodium (137-145) mmol/L Carbon Dioxide (22-30) mmol/L BUN (9-20) mg/dL Creatinine (0.66-1.25) mg/dL Glucose (74-99) mg/dL POC Glucose (mg/dL) 251 H 242 H (75-99) mg/dL Calcium (8.4-10.2) mg/dL 07/10/17 07/10/17 07/10/17 Range/Units 07:07 07:30 11:28 RBC (4.30-5.90) m/uL Hgb (13.0-17.5) gm/dL Hct (39.0-53.0) % MCHC (31.0-37.0) g/dL RDW (11.5-15.5) % Sodium 133 L (137-145) mmol/L Carbon Dioxide 18 L (22-30) mmol/L BUN 55 H (9-20) mg/dL Creatinine 5.40 H* (0.66-1.25) mg/dL Glucose 130 H (74-99) mg/dL POC Glucose (mg/dL) 134 H 206 H (75-99) mg/dL Calcium 8.0 L (8.4-10.2) mg/dL Microbiology - Last 24 Hours (Table) 07/08/17 12:57 Blood Culture - Preliminary Blood No Growth after 48 hours 07/08/17 12:40 Blood Culture - Preliminary Blood No Growth after 48 hours 07/05/17 04:28 Blood Culture - Preliminary Blood No Growth after 120 hours 07/04/17 15:27 Blood Culture - Preliminary Blood No Growth after 120 hours Assessment and Plan Plan: Assessment: #1. Acute hypoxic respiratory failure secondary to acute pulmonary edema due to acute on chronic renal failure, anuria #2 Acute rectal bleeding secondary to invading prostate mass, resolved. Status post 2 units of packed red blood cell infusions. Current hemoglobin 8.1. #3 Large hypermetabolic lesion of right-sided prostatic carcinoma with evidence of extra capsular extension into the rectum and into the right pelvis causing osseous distraction of medial right inferior pelvic ramus near pubic symphysis. Metastatic lesion to the liver. #4 Sepsis secondary to MRSA bacteremia, on daptomycin. #5 Acute on chronic renal failure, current creatinine 5.40. #6 Elevated liver enzymes with metastatic liver lesion. #7 Paroxysmal atrial fibrillation. #8 Coronary artery disease. #9 Diabetes mellitus. #10 Hyperlipidemia. #11 Hypertension. #12 History of shingles. #13 alf resident. Plan: Patient was given 80 milligram of IV Lasix with no response. He is progressively more dyspneic, with worsening oxygenation. Significantly orthopneic, was unable to lay down flat for placement of [place] temporary dialysis catheter. We will transfer the patient to the intensive care, we will request Dr. Escobedo to place a femoral dialysis catheter, we will place the patient on BiPAP for the procedure. Initiate hemodialysis as soon as access is available. BiPAP support at 12 and 5, and titrate FiO2 to keep O2 sat at 92% or better. This was discussed with the patient and his daughter who is at the bedside. They're in agreement. The case was discussed with Dr. Edmonds. Continue antibiotics per ID service recommendation. Continue all other medical treatments. I performed a history & physical examination of the patient and discussed their management with my nurse practitioner, Dilcia Serrano. I reviewed the nurse practitioner's note and agree with the documented findings and plan of care. Lung sounds are positive for crackles throughout the lung doan. The findings and the impression was discussed with the patient. I attest to the documentation by the nurse practitioner. Time with Patient: Greater than 30
[2017-07-10 16:32] LABS: Glucose,Whole Blood 215 mg/dL (75-99)
[2017-07-10] MEDS: IPRATROPIUM-ALBUTEROL 3 ML NEB INHALATION SCH ×2 (16:41→19:03)
--- NOTE | 2017-07-10 16:56 | ECHOF ---
Referral Reason:bacteremia MEASUREMENTS -------- HEIGHT: 180.3 cm WEIGHT: 111.6 kg BP: 109/56 RVIDd: 3.2 cm (< 3.3) IVSd: 1.1 cm (0.6 - 1.1) LVIDd: 5.8 cm (3.9 - 5.3) LVPWd: 1.3 cm (0.6 - 1.1) IVSs: 1.5 cm LVIDs: 4.6 cm LVPWs: 2.0 cm LA Diam: 4.0 cm (2.7 - 3.8) LAESV Index (A-L): 27.70 ml/m Ao Diam: 3.5 cm (2.0 - 3.7) AV Cusp: 1.8 cm (1.5 - 2.6) MV EXCURSION: 15.618 mm (> 18.000) MV EF SLOPE: 64 mm/s (70 - 150) EPSS: 0.6 cm RAP: 5.00 mmHg RVSP: 21.14 mmHg FINDINGS -------- Atrial fibrillation. This was a technically adequate study. The left ventricular size is normal. There is mild concentric left ventricular hypertrophy. Overa ll left ventricular systolic function is moderate-severely impaired with, an EF between 30 - 35 %. Basal inferoseptal LV wall motion is hypokinetic. Anterseptal Hypokinesis The right ventricle is normal in size. Normal LA size by volume 22+/-6 ml/m2. The right atrium is normal in size. There is mild aortic valve sclerosis. The mitral valve leaflets are mildly thickened. Moderate mitral annular calcification present. Mi ld mitral regurgitation is present. Cannot rule out vegetation om AML, ADVISED CHASITY. Mild tricuspid regurgitation present. Right ventricular systolic pressure is normal at < 35 mmHg. The pulmonic valve was not well visualized. The aortic root size is normal. The inferior vena cava is mildly dilated. There is no pericardial effusion. CONCLUSIONS -------- 1. Atrial fibrillation. 2. This was a technically adequate study. 3. The left ventricular size is normal. 4. There is mild concentric left ventricular hypertrophy. 5. Basal inferoseptal LV wall motion is hypokinetic. 6. Anterseptal Hypokinesis 7. The right ventricle is normal in size. 8. Normal LA size by volume 22+/-6 ml/m2. 9. The right atrium is normal in size. 10. There is mild aortic valve sclerosis. 11. The mitral valve leaflets are mildly thickened. 12. Moderate mitral annular calcification present. 13. Mild mitral regurgitation is present. 14. Cannot rule out vegetation. 15. Mild tricuspid regurgitation present. 16. Right ventricular systolic pressure is normal at < 35 mmHg. 17. The pulmonic valve was not well visualized. 18. The aortic root size is normal. 19. The inferior vena cava is mildly dilated. 20. There is no pericardial effusion. STRAPPING MACHINE OPERATOR: Mary Edmonds RDCS
[2017-07-10 17:58] LABS: Glucose,Whole Blood 212 mg/dL (75-99)
--- NOTE | 2017-07-10 19:55 | PN ---
PROGRESS NOTE DATE OF SERVICE: 07/10/2017 This 81-year-old gentleman with a past medical history of multiple medical problems was admitted initially with UTI related to Ramesh catheter. The patient also had multiple organisms growing MRSA as well as Pseudomonas grown from the cultures. CHASITY is being planned at this time. The patient has progressively also become short of breath. The patient also does have progressive renal failure and dialysis catheter was planned to be inserted, but the patient became suddenly short of breath today and the patient will be transferred to the ICU at this time. PAST MEDICAL HISTORY: Reviewed. REVIEW OF SYSTEMS: CARDIOVASCULAR: No angina or palpitations. Otherwise, as mentioned earlier. RESPIRATORY: As mentioned earlier. GI: No nausea, vomiting. : As mentioned earlier. NERVOUS: No numbness, weakness. CURRENT MEDICATIONS: Reviewed, include the current medications are: 1. [place] 7.5 p.r.n. 2. DuoNeb q.i.d. and p.r.n. 3. Casodex 50 mg p.o. b.i.d. 4. Questran 4 g p.o. b.i.d. 5. Cipro 500 mg p.o. b.i.d. 6. Daptomycin 650 q.48 hours. 8. Colace. 9. Dilaudid 0.5 q.4h p.r.n. 10.Melatonin. 11.Lopressor. 12.Protonix. 13.Ex-Lax. 14.Ultram. PHYSICAL EXAM: Patient is alert, oriented x2. Pulse 72, blood pressure 130/70, respiration 22, temperature 96.8, pulse ox 93% on 5L. HEENT: Conjunctivae normal. Oral mucosa moist. NECK: No jugular venous distention. No carotid bruits. No lymph node enlargement. CARDIOVASCULAR: S1, S2 muffled. RESPIRATORY: Breath sounds diminished in the bases. Bilateral scattered and crackles. ABDOMEN: Soft, nontender. LEGS: No edema. NERVOUS SYSTEM: Diffusely weak. LAB STUDIES: WBC 7.1, hemoglobin is 8.1. Sodium 133. ASSESSMENT: 1. Urinary tract infection with sepsis related to Ramesh catheter present on admission secondary to chronic Ramesh catheter. 2. Methicillin-resistant Staphylococcus aureus as well as Pseudomonas in the cultures. 3. Rule out bacterial endocarditis. 4. Possible congestive heart failure acute exacerbation with acute on chronic diastolic dysfunction with fluid overload as well as acute hypoxic respiratory failure. 5. Invasive prostate cancer. 6. Acute on chronic kidney disease with baseline chronic kidney stage 3. 7. Hyperlipidemia. 8. Hypertension. 9. Benign prostatic hypertrophy. 10.Acute tubular necrosis, acute renal failure. 11.Acute pulmonary edema. 12.Acute gastrointestinal bleed. 13.Hyperuricemia. 14.FULL CODE. RECOMMENDATIONS AND DISCUSSION: In this 80-year-old gentleman who presented with multiple complex medical issues , will monitor the patient closely, continue the current medical management and symptomatic treatment. Otherwise, continue with the IV antibiotics. Radiation has been initiated otherwise; however, the patient took a turn for the worse. At this time, I would recommend the patient be transferred to ICU. The patient endorses CHF. Patient will need a hemodialysis catheter, but it is difficult to insert the hemodialysis catheter because of continued shortness of breath. Guarded prognosis because of multiple complex medical issues. Further recommendations to follow. MMODL / IJN: [id number] / IRENE
[2017-07-10 22:56] LABS: Glucose,Whole Blood 177 mg/dL (75-99)
[2017-07-10] MEDS ORDERED: ACETAMINOPHEN TAB 500 MG TAB PO PRN (22:59)
[2017-07-11 04:26] LABS: Basophils % (A) 0 %; Eosinophils % (A) 0 %; HCT 29.6 % (39.0-53.0); Hypochromasia Moderate; Lymphocytes # (A) 1.1 k/uL (1.0-4.8); Lymphocytes % (A) 8 %; MCH 26.7 pg (25.0-35.0); MCHC 30.6 g/dL (31.0-37.0); MCV 87.2 fL (80.0-100.0); Mean Platelet Volume 6.9; Monocytes # (A) 0.4 k/uL (0-1.0); Monocytes % (A) 3 %; Neutrophils # (A) 12.3 k/uL (1.3-7.7); Neutrophils % (A) 88 %; Platelet Count 249 k/uL (150-450); Poikilocytosis Moderate; RBC 3.39 m/uL (4.30-5.90); RDW 15.7 % (11.5-15.5)
--- NOTE | 2017-07-11 04:51 | PN ---
PROGRESS NOTE DATE OF SERVICE: 07/10/2017 REASON FOR FOLLOWUP: 1. Methicillin-resistant Staphylococcus aureus bacteremia and a question of endocarditis. 2. Pseudomonas urinary tract infection. INTERVAL HISTORY: The patient is afebrile. He has been feeling shortness of breath for which the patient was transferred back to the ICU. He was started on a BiPAP. He is hemodynamically stable, not requiring any pressor support. No nausea or vomiting. Diarrhea has slightly slowed up. PHYSICAL EXAMINATION: On examination, blood pressure 180/72 with a pulse of 81, temperature of 98. He is 95% on BiPAP. General description is an elderly male, lying in bed in no distress. RESPIRATORY SYSTEM: Unlabored breathing with decreased breath sounds in the bases, no wheeze. HEART: S1, S2. Regular rate and rhythm. ABDOMEN: Soft, no tenderness. EXTREMITIES: Some trace edema of feet. LABS: Hemoglobin is 8.1 with white count 7.7. BUN of 55, creatinine 5.40. Blood cultures repeat 07/08 has been negative. DIAGNOSTIC IMPRESSION AND PLAN: 1. Patient with methicillin-resistant Staphylococcus aureus bacteremia with concern for possible mitral wall endocarditis. CHASITY has been requested, currently pending. He will continue on daptomycin. Follow up blood cultures were negative. 2. Patient with Pseudomonas urinary tract infection, currently on oral Cipro. Continue supportive care. MMODL / IJN: [id number] / IRENE
[2017-07-11 04:53] LABS: Calcium 8.2 mg/dL (8.4-10.2); Magnesium 1.7 mg/dL (1.6-2.3); Potassium 3.9 mmol/L (3.5-5.1)
[2017-07-11] MEDS: IPRATROPIUM-ALBUTEROL 3 ML NEB INHALATION PRN (05:08)
[2017-07-11] MEDS: LORazepam 2 MG/ML INJ IV PRN (05:44)
[2017-07-11] MEDS ORDERED: MAGNESIUM SULFATE-D5W PMX 1 GM in DEXTROSE/WATER 1 100ML.BAG IVPB ONE (06:34)
[2017-07-11 07:27] LABS: Glucose,Whole Blood 171 mg/dL (75-99)
--- NOTE | 2017-07-11 08:09 | XR ---
EXAMINATION TYPE: XR chest 1V DATE OF EXAM: 07/11/2017 COMPARISON: 07/10/2017 HISTORY: Shortness of breath FINDINGS: There are bilateral pleural effusions with cardiomegaly and bibasilar infiltrate. There is a diffuse interstitial pattern. Atherosclerotic change aorta. IMPRESSION: 1. Diffuse airspace disease correlate for CHF and pulmonary edema versus diffuse pneumonia. Findings are progressed within the left upper lobe.
[2017-07-11] MEDS: IPRATROPIUM-ALBUTEROL 3 ML NEB INHALATION SCH ×4 (08:20→20:17)
[2017-07-11] MEDS ORDERED: FUROSEMIDE 10 MG/ML 10 ML VIAL IV STA (09:02)
[2017-07-11] MEDS: INSULIN ASPART 100 UNIT/ML 1 ML 10 ML VIAL SQ SCH ×4 (09:07→21:01)
[2017-07-11] MEDS ORDERED: HEPARIN SODIUM 1,000 UN/ML (10ML VL) ONE (09:41)
[2017-07-11] MEDS ORDERED: LIDOCAINE 1% INJ 10MG/ML (20 ML MDV) ONE (09:41)
--- NOTE | 2017-07-11 10:19 | OP ---
OPERATIVE REPORT PREOPERATIVE DIAGNOSIS: Acute renal failure. PROCEDURE: Ultrasound-guided dialysis catheter placed right femoral approach. Patient was seen in the intensive care unit. Right groin was prepped and draped in usual sterile manner; 1% lidocaine infiltrated. Ultrasound-guided micropuncture introduced right femoral vein, micropuncture guide was passed. Then the 4 Uzbek dilator passed up guidewire. After that, we passed a regular guidewire without any resistance. Then a dilator was brought advanced on top of the guidewire. Then, we placed a temporary dialysis catheter. Flushed with heparin, saline and secured with 3- 0 silk. Dressing applied. Patient tolerated the procedure well. MMODL / IJN: [id number] /
--- NOTE | 2017-07-11 10:50 | CONS ---
CONSULTATION This is an 81-year-old gentleman whom I seen for consulting and schedule for placement of dialysis catheter. Patient has extreme short of breath. He is on BiPAP. The patient has history of urinary tract infection and patient on IV antibiotics. The patient was seen by Nephrology and recommended to have a dialysis catheter. MEDICAL HISTORY: History of coronary artery disease, diabetes, hyperlipidemia, hypertension, prostate disorder. PHYSICAL EXAMINATION: On examination, patient was seen in the intensive care unit. Patient has BiPAP for acute respiratory failure. Chest has bilateral rhonchi. Abdomen is soft. Femorals are 1+. PLAN: Placement of the dialysis catheter. Since the patient is very short of breath and cannot lie flat, we will place a right femoral catheter and when patient improves then we place a permanent dialysis catheter. MMODL / IJN: [id number] /
[2017-07-11 11:52] LABS: Glucose,Whole Blood 119 mg/dL (75-99)
[2017-07-11] MEDS: METOPROLOL TARTRATE 50 MG TAB PO SCH ×4 (12:06→19:14)
[2017-07-11] MEDS: BICALUTAMIDE 50 MG TAB PO SCH ×2 (12:07→21:02)
[2017-07-11] MEDS: CHOLESTYRAMINE (WITH SUGAR) 4 GM PACKET PO SCH ×2 (12:07→17:59)
[2017-07-11] MEDS: CIPROFLOXACIN HCL 500 MG TAB PO SCH (12:07)
--- NOTE | 2017-07-11 12:15 | P.PN ---
Subjective Progress Note Date: 07/11/17 Principal diagnosis: A. FIB This is a pleasant 81-year-old gentleman who sees Dr. VC Carrion in the office as an outpatient with a past medical history significant for paroxysmal atrial fibrillation as well as prostate cancer who was admitted initially to the fourth floor and was transferred to the intensive care unit because of rectal bleeding. The patient bled significantly from the rectum was bright red blood. 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 He is under the care of Dr. Mcallister at this point. His hemoglobin dropped and the patient received 2 units of packed RBC. The hemoglobin was 7 and increased to 8.6 after the blood transfusion. We initially got involved in the care of the patient because he is in A. fib with heart rate between 100 to 110 beats per minutes. The pressure has been marginally low. Currently the patient is on metoprolol for heart rate control and he was receiving oral anticoagulation but that was stopped. Clinically the patient denies having any chest pain or discomfort or difficulty breathing or heart racing or fluttering feeling at this point. Overall he is weak. The patient was here in May 2017 and at that point he underwent an echocardiogram which revealed normal LV function without significant valvular abnormalities. We signed off on the patient and the patient was then transferred from the intensive care to a non-telemetry unit. Yesterday he went into an acute respiratory distress. He was transferred back to the intensive care unit. An echocardiogram was performed recently and did reveal severe lead impaired LV function with an ejection fraction around 35% with possible anterior mitral leaflet vegetation. We requested to see the patient to perform transesophageal echocardiogram for further clarification. Unfortunately, the patient is in respiratory distress at this point and he is tachypneic. The patient in the current situation, tolerate performing a CHASITY on him. He is in process to be seen by the intensive care unit team and he is possibly need to be intubated. If the patient intubated then it would be safer to perform a CHASITY on him. Anyway he is covered regarding endocarditis at this point. Objective - Vital Signs Vital signs: Vital Signs Temp 98.1 F 07/11/17 08:00 Pulse 100 07/11/17 12:00 Resp 25 H 07/11/17 12:00 BP 90/42 07/11/17 12:00 Pulse Ox 95 07/11/17 12:00 Intake & Output 07/10/17 07/11/17 07/11/17 18:59 06:59 18:59 Intake Total 480 50 220 Output Total 92 3385 340 Balance 388 -3335 -120 Weight 118 kg 119.6 kg Intake: Intake, IV Titration 220 Amount Magnesium Sulfate-D5w Pmx 200 1 gm In Dextrose/Water 1 100ml.bag @ 100 mls/hr IVPB ONCE ONE Rx#: [id number] Sodium Chloride 0.9% 1, 20 000 ml @ 60 mls/hr IV . [id number] [facility] Rx#:[id number] Oral 480 50 Output: Urine 90 385 340 Stool 2 Other 3000 Other: Voiding Method Indwelling Catheter Indwelling Catheter Indwelling Catheter # Bowel Movements 2 - Constitutional General appearance: Present: mild distress - Respiratory Respiratory: bilateral: rales - Cardiovascular Heart sounds: normal: S1, S2 - Labs CBC & Chem 7: 07/11/17 03:53 07/11/17 03:53 Labs: Abnormal Lab Results - Last 24 Hours (Table) 07/10/17 07/10/17 07/10/17 Range/Units 16:27 17:56 22:55 WBC (3.8-10.6) k/uL RBC (4.30-5.90) m/uL Hgb (13.0-17.5) gm/dL Hct (39.0-53.0) % MCHC (31.0-37.0) g/dL RDW (11.5-15.5) % Neutrophils # (1.3-7.7) k/uL Sodium (137-145) mmol/L Carbon Dioxide (22-30) mmol/L BUN (9-20) mg/dL Creatinine (0.66-1.25) mg/dL Glucose (74-99) mg/dL POC Glucose (mg/dL) 215 H 212 H 177 H (75-99) mg/dL Calcium (8.4-10.2) mg/dL 07/11/17 07/11/17 07/11/17 Range/Units 03:53 03:53 07:26 WBC 14.0 H (3.8-10.6) k/uL RBC 3.39 L (4.30-5.90) m/uL Hgb 9.0 L (13.0-17.5) gm/dL Hct 29.6 L (39.0-53.0) % MCHC 30.6 L (31.0-37.0) g/dL RDW 15.7 H (11.5-15.5) % Neutrophils # 12.3 H (1.3-7.7) k/uL Sodium 134 L (137-145) mmol/L Carbon Dioxide 17 L (22-30) mmol/L BUN 46 H (9-20) mg/dL Creatinine 5.20 H* (0.66-1.25) mg/dL Glucose 139 H (74-99) mg/dL POC Glucose (mg/dL) 171 H (75-99) mg/dL Calcium 8.2 L (8.4-10.2) mg/dL 07/11/17 Range/Units 11:50 WBC (3.8-10.6) k/uL RBC (4.30-5.90) m/uL Hgb (13.0-17.5) gm/dL Hct (39.0-53.0) % MCHC (31.0-37.0) g/dL RDW (11.5-15.5) % Neutrophils # (1.3-7.7) k/uL Sodium (137-145) mmol/L Carbon Dioxide (22-30) mmol/L BUN (9-20) mg/dL Creatinine (0.66-1.25) mg/dL Glucose (74-99) mg/dL POC Glucose (mg/dL) 119 H (75-99) mg/dL Calcium (8.4-10.2) mg/dL Microbiology - Last 24 Hours (Table) 07/05/17 04:28 Blood Culture - Final Blood No Growth after 144 hours 07/04/17 15:27 Blood Culture - Final Blood No Growth after 144 hours 07/08/17 12:57 Blood Culture - Preliminary Blood No Growth after 48 hours 07/08/17 12:40 Blood Culture - Preliminary Blood No Growth after 48 hours Assessment and Plan Assessment: Assessment #1 anemia secondary to rectal bleeding #2 prostate cancer #3 paroxysmal atrial fibrillation #4 generalized fatigue and tiredness #5 multiple comorbid conditions #6 acute respiratory distress #7 multiple comorbid conditions Plan #1 I recommended no CHASITY at this point of time in view of the patient's respiratory status #2 continue the current medical treatment. He is hemodynamically stable at this point. #3 possible intubation in the next 24 hours and the intensive care team is on the case.
[2017-07-11] MEDS ORDERED: POTASSIUM CHLORIDE 20 MEQ, LIDOCAINE 2% INJ 20 MG in SODIUM CHLORIDE 0.9% 100 ML IVPB ONE (13:52)
[2017-07-11] MEDS: PANTOPRAZOLE 40 MG/10 ML VIAL IVP SCH (13:54)
[2017-07-11] MEDS: FUROSEMIDE 250 MG in SODIUM CHLORIDE 0.9% 225 ML IVP SCH (14:52)
--- NOTE | 2017-07-11 16:36 | P.PN ---
<Dlicia Serrano M - Last Filed: 07/11/17 16:25> Subjective Progress Note Date: 07/11/17 Principal diagnosis: Acute hypoxic respiratory failure secondary to acute pulmonary edema due to acute renal failure This is a pleasant 81-year-old gentleman who resides at an extended care facility who has a history of coronary artery disease, paroxysmal atrial fibrillation, diabetes mellitus, hyperlipidemia, hypertension, shingles, MRSA infection in the blood and urine. 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 A recent PET scan revealed large hypermetabolic lesion presumed right-sided prostatic carcinoma there is also evidence of extra Chiller extension into the rectum and into the right pelvis causing osseous destruction of medial right MP a pelvic ramus near pubic symphysis. There is metastatic lesion to the liver as well. Patient was readmitted yesterday with fever and generalized weakness. Gentleman admitted to the regular medical floor with suspected urinary tract infection and sepsis. Last evening he developed bright red bleeding from the rectum approximately 50 MLS. He did have a drop in his systolic blood pressure into the 70s and 80s. His hemoglobin was 7.0. He was transferred here to the intensive care unit. He did not require any pressors. Did receive 2 units of packed red blood cells in his current hemoglobin is 8.6. White count 11.7. Creatinine 3.10. AST 158, ALT 106 Blood cultures are revealing presumptive MRSA. His chest x-ray shows mild fluid volume overload with small effusions. He is maintaining O2 saturations in the upper 90s on 2 L/m per nasal cannula. The patient is seen again today 07/04/2017 in follow-up in the intensive care unit. He is oncology overflow patient. He is awake and alert in no acute distress. He's had no further significant rectal bleeding. Hemoglobin 8.8. He has remained hemodynamically stable. Not requiring any pressors. He is found to have MRSA bacteria anemia and gram-negative bacilli in the urine. ID is on the case. He remains on daptomycin and Zosyn. His chest x-ray continues to show evidence of fluid volume overload. He is maintaining O2 saturations in the high 90s on 2 L/m per nasal cannula. He remains in atrial fibrillation with varying ventricular response. Currently off anticoagulants. 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 The plan is to undergo CT simulation and delivery of approximately 4-5 doses. Progress note dated 07/05/2017 This is a 81-year-old male who is an oncology overflow patient. The patient could be transferred out to the oncology floor. He came in with some rectal bleeding. The reason for the rectal bleeding is because he has prostate cancer which apparently is rotated into the bowel. The plan for him is apparently on radiation therapy. The patient is doing relatively well. Feeling a bit weak. The patient does not require any pressors at this time. Hemodynamically stable and his hemoglobin has been stable. The patient remains on daptomycin and Zosyn. The patient otherwise is doing relatively relatively well. Remains on O2 at 2 L. Currently off anticoagulants. Progress note dated 07/06/2017 81-year-old male with a history of off GI bleed. The patient has a history of prostate cancer which is eroded into the rectum. He's an overflow oncology patient can be transferred out to the oncology floor or to general medical floor. The patient's very stable this point. Blood pressure is been stable. Respiratory status is stable. The patient's on O2 at 2 L by nasal cannula and IV of saline at KVO. The patient is not requiring any additional blood. The patient remains on daptomycin and Zosyn. Hemodynamically stable. The plan is for him to get radiation therapy to the prostate area to hopefully stem the bleeding from the lesion is eroding into the rectum. The patient is off all anticoagulants at this time. On 07/10/2017 patient is seen in follow-up on medical surgical floor. He developed an acute episode of respiratory distress, severe orthopnea, and acute dyspnea. His lab work today was reviewed, there is no evidence of leukocytosis , WBC is 7.7, hemoglobin is 8.1, his sodium is 133, his carbon dioxide was 18, his BUN is 55, and creatinine is 5.40. Nephrology has discussed initiation of hemodialysis with him today, patient is in agreement. His oxygenation requirements have increased, this morning he was on 2 L per nasal cannula with O2 sat at 97%, through the day and has deteriorated, and patient is not requiring 5-6 L per nasal cannula with O2 sat at 92-93%. Lung sounds are positive for coarse rales throughout the lung doan bilaterally. He remains afebrile. No other episodes of rectal bleeding was observed. Patient was actually due to start radiation therapy for his prostate cancer today, however in view of his worsening respiratory status, was put on hold. Stat chest x-ray was obtained, and shows worsening decompensated congestive heart failure and confluent pulmonary edema. 80 mg of Lasix IV was given, with no response, patient only made 10 mL of urine. Patient has been progressively more oliguric over the last few days. Has been complaining of worsening appetite and weakness. Dr. Escobedo was consulted for placement of hemodialysis catheter, patient is unable to lay down flat, patient may have to go on the BiPAP support and hemodialysis catheter may have to be placed in the femoral area. We will transfer the patient to the intensive care, and request Dr. Escobedo to place a hemodialysis catheter STEPHEN and initiate hemodialysis as soon as possible. On 07/11/2017 patient remains in the intensive care BiPAP frontal or support with pressures 12.5 and FiO2 40%. He had hemodialysis last night would removal of 3 L of fluid, he is scheduled for hemodialysis again today. Is moderately short of breath, lung sounds are positive for coarse rhonchi, rales. And to produce some urine, 10-20 mL per hour. Chest x-ray from 07/11/2017 has been reviewed and shows airspace disease consistent with CHF and pulmonary edema. Support was reviewed, WBCs are up to 14, hemoglobin is 9, serum sodium is 134, serum potassium is 4.1, B1 is 46, creatinine is 5.2, with CO2 of 17. Bilateral lower extremities positive for 1+ pitting edema. Patient was given 80 mg of Lasix with modest response, about 125 mL in the first hour after administration. Continues on ciprofloxacin for Pseudomonas in the urine, daptomycin for the positive blood cultures with MRSA. Objective - Vital Signs Vital signs: Vital Signs Temp 98.1 F 07/11/17 08:00 Pulse 74 07/11/17 16:00 Resp 25 H 07/11/17 15:00 BP 103/64 07/11/17 15:00 Pulse Ox 99 07/11/17 15:00 Intake & Output 07/10/17 07/11/17 07/11/17 18:59 06:59 18:59 Intake Total 480 50 320 Output Total 44 1977 6845 Balance 301 -0379 -8383 Weight 118 kg 119.6 kg Intake: Intake, IV Titration 320 Amount Magnesium Sulfate-D5w Pmx 200 1 gm In Dextrose/Water 1 100ml.bag @ 100 mls/hr IVPB ONCE ONE Rx#: [id number] Potassium Chloride 20 meq 100 Lidocaine 2% Inj 20 mg In Sodium Chloride 0.9% 100 ml @ 55.5 mls/hr IVPB ONCE ONE Rx#:[id number] Sodium Chloride 0.9% 1, 20 000 ml @ 60 mls/hr IV . [id number] [facility] Rx#:[id number] Oral 480 50 Output: Urine 90 385 460 Stool 2 Other 3000 2000 Other: Voiding Method Indwelling Catheter Indwelling Catheter Indwelling Catheter # Bowel Movements 2 - Exam No acute distress, oriented 3. HEENT examination is grossly unremarkable. Mucous membranes are moist. No oral lesions. Neck supple. Full range of motion. No adenopathy thyromegaly or neck vein distention. Cardiovascular examination reveals irregular rhythm. S1-S2 normal. No S3 or S4. No discernible murmur noted. Lungs sounds are positive for coarse rales throughout the lung doan. Patient is significantly, tachypneic, moderately short of breath Abdomen soft bowel sounds are heard. No masses or tenderness. Extremities are intact. No cyanosis clubbing or edema. Skin is without rash or lesion. Neurologic examination is brief but nonfocal. - Labs CBC & Chem 7: 07/11/17 03:53 07/11/17 03:53 Labs: Abnormal Lab Results - Last 24 Hours (Table) 07/10/17 07/10/17 07/10/17 Range/Units 16:27 17:56 22:55 WBC (3.8-10.6) k/uL RBC (4.30-5.90) m/uL Hgb (13.0-17.5) gm/dL Hct (39.0-53.0) % MCHC (31.0-37.0) g/dL RDW (11.5-15.5) % Neutrophils # (1.3-7.7) k/uL Sodium (137-145) mmol/L Carbon Dioxide (22-30) mmol/L BUN (9-20) mg/dL Creatinine (0.66-1.25) mg/dL Glucose (74-99) mg/dL POC Glucose (mg/dL) 215 H 212 H 177 H (75-99) mg/dL Calcium (8.4-10.2) mg/dL 07/11/17 07/11/17 07/11/17 Range/Units 03:53 03:53 07:26 WBC 14.0 H (3.8-10.6) k/uL RBC 3.39 L (4.30-5.90) m/uL Hgb 9.0 L (13.0-17.5) gm/dL Hct 29.6 L (39.0-53.0) % MCHC 30.6 L (31.0-37.0) g/dL RDW 15.7 H (11.5-15.5) % Neutrophils # 12.3 H (1.3-7.7) k/uL Sodium 134 L (137-145) mmol/L Carbon Dioxide 17 L (22-30) mmol/L BUN 46 H (9-20) mg/dL Creatinine 5.20 H* (0.66-1.25) mg/dL Glucose 139 H (74-99) mg/dL POC Glucose (mg/dL) 171 H (75-99) mg/dL Calcium 8.2 L (8.4-10.2) mg/dL 07/11/17 Range/Units 11:50 WBC (3.8-10.6) k/uL RBC (4.30-5.90) m/uL Hgb (13.0-17.5) gm/dL Hct (39.0-53.0) % MCHC (31.0-37.0) g/dL RDW (11.5-15.5) % Neutrophils # (1.3-7.7) k/uL Sodium (137-145) mmol/L Carbon Dioxide (22-30) mmol/L BUN (9-20) mg/dL Creatinine (0.66-1.25) mg/dL Glucose (74-99) mg/dL POC Glucose (mg/dL) 119 H (75-99) mg/dL Calcium (8.4-10.2) mg/dL Microbiology - Last 24 Hours (Table) 07/08/17 12:57 Blood Culture - Preliminary Blood No Growth after 72 hours 07/08/17 12:40 Blood Culture - Preliminary Blood No Growth after 72 hours 07/05/17 04:28 Blood Culture - Final Blood No Growth after 144 hours 07/04/17 15:27 Blood Culture - Final Blood No Growth after 144 hours Assessment and Plan Plan: Assessment: #1. Acute hypoxic respiratory failure secondary to acute pulmonary edema due to acute on chronic renal failure #2 Acute rectal bleeding secondary to invading prostate mass, resolved. Status post 2 units of packed red blood cell infusions. Current hemoglobin 8.1. #3 Large hypermetabolic lesion of right-sided prostatic carcinoma with evidence of extra capsular extension into the rectum and into the right pelvis causing osseous distraction of medial right inferior pelvic ramus near pubic symphysis. Metastatic lesion to the liver. #4 Sepsis secondary to MRSA bacteremia, on daptomycin. #5 Acute on chronic renal failure, current creatinine 5.40. #6 Elevated liver enzymes with metastatic liver lesion. #7 Paroxysmal atrial fibrillation. #8 Coronary artery disease. #9 Diabetes mellitus. #10 Hyperlipidemia. #11 Hypertension. #12 History of shingles. #13 prison resident. Plan: Patient continues on BiPAP and to support, moderately short of breath, she remains tachypneic, lung sounds are positive for extensive rhonchi and rales. Chest x-ray shows persistent pulmonary edema. Patient had his initial hemodialysis treatment last night with removal of 3 L of fluid, needs another hemodialysis today.'s time to make some urine. 80 mg of Lasix IV was given this morning, with modest response. Continue with daptomycin and ciprofloxacin per ID recommendation for the MRSA in the blood cultures and pseudomonas in the urine. Cardiogram from 07/05/2017 could not exclude vegetation on the anterior mitral leaflet, however in view of patient's marginal respiratory status cardiology is unable to proceed with CHASITY at this point. There is a possibility the patient's condition may deteriorate further and may have to be intubated and placed on mechanical ventilator. However overall prognosis remains poor in view of his advanced metastatic prostate cancer, worsening kidney disease, general medical debility. I performed a history & physical examination of the patient and discussed their management with my nurse practitioner, Dilcia Serrano. I reviewed the nurse practitioner's note and agree with the documented findings and plan of care. Lung sounds are positive for crackles throughout the lung doan. The findings and the impression was discussed with the patient. I attest to the documentation by the nurse practitioner. Time with Patient: Less than 30 <Jackson Edmonds - Last Filed: 07/11/17 16:50> Objective - Vital Signs Vital signs: Vital Signs Temp 98.1 F 07/11/17 08:00 Pulse 74 07/11/17 16:00 Resp 25 H 07/11/17 15:00 BP 103/64 07/11/17 15:00 Pulse Ox 99 07/11/17 15:00 Intake & Output 07/10/17 07/11/17 07/11/17 18:59 06:59 18:59 Intake Total 480 50 320 Output Total 92 3385 5400 Balance 548 -6174 -3784 Weight 118 kg 119.6 kg Intake: Intake, IV Titration 320 Amount Magnesium Sulfate-D5w Pmx 200 1 gm In Dextrose/Water 1 100ml.bag @ 100 mls/hr IVPB ONCE ONE Rx#: [id number] Potassium Chloride 20 meq 100 Lidocaine 2% Inj 20 mg In Sodium Chloride 0.9% 100 ml @ 55.5 mls/hr IVPB ONCE ONE Rx#:[id number] Sodium Chloride 0.9% 1, 20 000 ml @ 60 mls/hr IV . [id number] [facility] Rx#:[id number] Oral 480 50 Output: Urine 90 385 460 Stool 2 Other 3000 2000 Other: Voiding Method Indwelling Catheter Indwelling Catheter Indwelling Catheter # Bowel Movements 2 - Labs CBC & Chem 7: 07/11/17 03:53 07/11/17 16:05 Labs: Abnormal Lab Results - Last 24 Hours (Table) 07/10/17 07/10/17 07/11/17 Range/Units 17:56 22:55 03:53 WBC 14.0 H (3.8-10.6) k/uL RBC 3.39 L (4.30-5.90) m/uL Hgb 9.0 L (13.0-17.5) gm/dL Hct 29.6 L (39.0-53.0) % MCHC 30.6 L (31.0-37.0) g/dL RDW 15.7 H (11.5-15.5) % Neutrophils # 12.3 H (1.3-7.7) k/uL Sodium (137-145) mmol/L Carbon Dioxide (22-30) mmol/L BUN (9-20) mg/dL Creatinine (0.66-1.25) mg/dL Glucose (74-99) mg/dL POC Glucose (mg/dL) 212 H 177 H (75-99) mg/dL Calcium (8.4-10.2) mg/dL 07/11/17 07/11/17 07/11/17 Range/Units 03:53 07:26 11:50 WBC (3.8-10.6) k/uL RBC (4.30-5.90) m/uL Hgb (13.0-17.5) gm/dL Hct (39.0-53.0) % MCHC (31.0-37.0) g/dL RDW (11.5-15.5) % Neutrophils # (1.3-7.7) k/uL Sodium 134 L (137-145) mmol/L Carbon Dioxide 17 L (22-30) mmol/L BUN 46 H (9-20) mg/dL Creatinine 5.20 H* (0.66-1.25) mg/dL Glucose 139 H (74-99) mg/dL POC Glucose (mg/dL) 171 H 119 H (75-99) mg/dL Calcium 8.2 L (8.4-10.2) mg/dL Microbiology - Last 24 Hours (Table) 07/08/17 12:57 Blood Culture - Preliminary Blood No Growth after 72 hours 07/08/17 12:40 Blood Culture - Preliminary Blood No Growth after 72 hours 07/05/17 04:28 Blood Culture - Final Blood No Growth after 144 hours 07/04/17 15:27 Blood Culture - Final Blood No Growth after 144 hours Assessment and Plan Plan: This is a don't evaluation that was done along with the nurse practitioner. I tested above-mentioned information. The patient was seen and evaluated earlier this morning. He was still BiPAP dependent. He was still short of breath despite the session of hemodialysis that he underwent yesterday. At one point it was constipating to intubate this patient and put her on a mechanical ventilator. I am a bit hesitant to do so knowing that his prognosis is very poor as the patient has metastatic prostate cancer involving the rectum and the liver and there are other issues concerning his health including the recent septicemia with staph aureus and even the possibility of an underlying infective endocarditis. As such, I decided to wait and continue with the BiPAP support. He will have another hemodialysis with ultrafiltration and this should be able to further optimize his fluid balance and respiratory status. If not, he may need to be intubated. Meanwhile, it discussed the case with nephrology. He does have a component of chronic renal failure and he developed an acute kidney injury with oliguria. We'll continue with the Lasix. He is producing some urine output for now. Continue the daptomycin. We'll follow. Condition is critical. Prognosis poor baseline above-mentioned comorbidities.
[2017-07-11] MEDS: DARBEPOETIN ALFA 40 MCG/0.4 ML SYRINGE SQ SCH (16:37)
--- NOTE | 2017-07-11 16:40 | PN ---
PROGRESS NOTE Patient is seen for followup for chronic kidney disease and progressive renal failure. The patient had his PermCath placed to start dialysis yesterday. However, last evening, he developed significant shortness of breath and fluid overload and was dialyzed last night. He is currently in the ICU, maintained on BiPAP and is seen again on dialysis. He has been in and out of atrial fibrillation, which is not new. Blood pressure has been staying about 90-100 mmHg systolic. We had 3 L of ultrafiltration yesterday and the aiming for about 2-2.5 L today. Patient has invasive rectal cancer and was scheduled to start radiation therapy yesterday. EXAMINATION: Today, patient is on BiPAP. He is short of breath. Blood pressure is 103/64, heart rate 85 per minute. Examination of the heart: S1, S2. Examination lungs: Bilateral breath sounds are heard. Abdomen is soft, nontender. Examination of lower extremities shows edema 2+ bilaterally. INVESTIGATIVE ANALYST exam is grossly intact. LAB: Show serum creatinine 5.2, sodium 134, potassium 3.9, hemoglobin 9.0. ASSESSMENT: 1. Progressive renal failure, currently needing to start renal replacement therapy. The patient had his first treatment yesterday. He is being dialyzed today and we will dialyze him again tomorrow mainly for fluid overload. He has a femoral catheter. We will switch it to IJ PermCath once patient is stable. 2. Respiratory failure secondary to fluid overload. 3. Invasive prostatic cancer with rectal mass and gastrointestinal bleed. 4. Metabolic acidosis. 5. Anemia, multifactorial, maintained on Aranesp. PLAN: Hemodialysis today and repeat dialysis in a.m. Once his dialysis is done we will start a Lasix drip as his urine output seems to have picked up to help with the volume status. MMODL / IJN: [id number] /
[2017-07-11 17:11] LABS: Glucose,Whole Blood 152 mg/dL (75-99)
--- NOTE | 2017-07-11 17:56 | PN ---
PROGRESS NOTE DATE OF SERVICE: 07/11/2017. INTERVAL HISTORY: This 81-year-old gentleman who was admitted with UTI and sepsis also had acute on chronic CHF also. The patient had significant diastolic dysfunction. Patient had respiratory failure. Patient monitored in ICU. The patient had a temporary dialysis catheter inserted. The patient underwent hemodialysis about ultrafiltration of 3 L yesterday. Today again 3 L is being removed. The patient has got some change in mental status. Dr. Payne and Dr. Edmonds are following the patient closely. The patient is on BiPAP at this time. The patient also received 2 units of transfusion. Please note patient had a prostate cancer with METS. PAST MEDICAL HISTORY: Reviewed. Review of systems could not be taken because of change in mental status. CURRENT MEDICATIONS: Reviewed and include: 1. Tylenol 500 mg q.6 p.r.n. 2. [place] 7.5 q.8h p.r.n. 3. DuoNeb q.i.d. and p.r.n. 4. Casodex 50 mg p.o. b.i.d. 5. Questran 4 mg p.o. b.i.d. 6. Cipro 500 mg p.o. b.i.d. 7. Daptomycin 650 q.48h. 8. 40 mcg q.72h. 9. Colace 100 mg p.o. b.i.d. 10.Lasix drip. 11.Dilaudid 0.5 q.4h p.r.n. 12.NovoLog scale. PHYSICAL EXAM: The patient is stuporous. Pulse 77, blood pressure 170/48, respiration 22, temperature 97.8, pulse ox 100% on 4 L. HEENT: Conjunctivae pale. Oral mucosa moist. NECK: Jugular venous distention at root of neck. CARDIOVASCULAR: S1, S2. RESPIRATORY: Breath sounds diminished in the bases. Bilateral scattered rhonchi and expiratory wheezing and crackles. ABDOMEN: Soft, nontender. LEGS: Bilateral leg edema NERVOUS SYSTEM: Diffusely weak. SKIN: No ulcer, rash or bleeding. LAB STUDIES: WBC 14, hemoglobin is 9, sodium 134, creatinine 5.20. ASSESSMENT: 1. Urinary tract infection with sepsis related to Ramesh catheter present on admission secondary to chronic Ramesh catheter. 2. MRSA as well as Pseudomonas in the cultures and sepsis. 3. Rule out bacterial endocarditis. 4. Congestive heart failure acute exacerbation with acute on chronic diastolic dysfunction with fluid overload as well as acute hypoxic respiratory failure on BiPAP. 5. Newly initiated hemodialysis for acute on chronic kidney failure. 6. Invasive prostate cancer. 7. Acute on chronic kidney disease, baseline chronic kidney disease stage III. 8. Hyperlipidemia. 9. Hypertension. 10.Benign prostatic hypertrophy. 11.Acute tubular necrosis, acute renal failure. 12.Acute pulmonary edema. 13.Acute gastrointestinal bleeding and as well as acute blood loss anemia, status post transfusions. 14.Hyperuricemia. 15.Change in mental status, metabolic encephalopathy, multifactorial. 16.FULL CODE. RECOMMENDATIONS AND DISCUSSION: This 81-year-old gentleman who presented with multiple complex medical issues, will monitor the patient closely. Continue the current management and symptomatic treatment. Continue the broad-spectrum IV antibiotics as mentioned earlier. Follow the cultures further. Otherwise continue the hemodialysis. Monitor fluid balance closely. Continue the bronchodilators. Continue the rest of medications and closely follow with multiple consultants. Prognosis guarded. Further recommendations to follow. See order for details. MMODL / IJN: [id number] / MTDD
[2017-07-11 21:02] LABS: Glucose,Whole Blood 152 mg/dL (75-99)
[2017-07-11] MEDS ORDERED: DILTIAZEM 125 MG in SODIUM CHLORIDE 0.9% 100 ML IV SCH (21:30)
--- NOTE | 2017-07-11 22:53 | PN ---
PROGRESS NOTE DATE OF SERVICE: 07/11/2017. REASON FOR FOLLOWUP: MRSA bacteremia with a question of endocarditis. INTERVAL HISTORY: The patient is afebrile. He continues to have some difficulty breathing, for which the patient is currently in the ICU. patient denies significant chest pain or cough. No abdominal pain, nausea, vomiting or any diarrhea. PHYSICAL EXAMINATION: Blood pressure is 105/61 with a pulse of 128, temperature of 98. He is 96% on 4 L nasal cannula. General description is an elderly male lying in bed in no distress. RESPIRATORY SYSTEM: Unlabored breathing with decreased breath sounds at the bases. HEART: S1, S2. Regular rate and rhythm. ABDOMEN: Soft. No tenderness. No organomegaly Extremities: 1+ edema feet Labs were reviewed Diagnostic impression and plan: Patient with MRSA bacteremia with concern for possible mitral endocarditis waiting for his respiratory condition to stabilize so patient can undergo CHASITY patient be kept on daptomycin 6 mg per KG every 48 on watching his clinical condition closely MMODL / IJN: [id number] / MTDD
[2017-07-12] MEDS: CIPROFLOXACIN HCL 500 MG TAB PO SCH ×2 (01:37→17:26)
[2017-07-12 05:47] LABS: Anisocytosis Slight; Basophils % (A) 0 %; Eosinophils # (A) 0.1 k/uL (0-0.7); Eosinophils % (A) 0 %; HGB 8.2 gm/dL (13.0-17.5); Hypochromasia Marked; Lymphocytes # (A) 1.2 k/uL (1.0-4.8); Lymphocytes % (A) 6 %; MCHC 30.2 g/dL (31.0-37.0); MCV 86.1 fL (80.0-100.0); Monocytes # (A) 0.5 k/uL (0-1.0); Monocytes % (A) 3 %; Neutrophils # (A) 16.9 k/uL (1.3-7.7); Neutrophils % (A) 90 %; Platelet Count 228 k/uL (150-450); Poikilocytosis Slight; RBC 3.13 m/uL (4.30-5.90); RDW 16.9 % (11.5-15.5); WBC 18.9 k/uL (3.8-10.6)
[2017-07-12 06:02] LABS: Calcium 8.3 mg/dL (8.4-10.2); Magnesium 1.8 mg/dL (1.6-2.3)
[2017-07-12 07:48] LABS: Glucose,Whole Blood 143 mg/dL (75-99)
[2017-07-12] MEDS: IPRATROPIUM-ALBUTEROL 3 ML NEB INHALATION SCH ×4 (08:13→19:49)
[2017-07-12] MEDS: INSULIN ASPART 100 UNIT/ML 1 ML 10 ML VIAL SQ SCH ×4 (08:17→20:15)
[2017-07-12] MEDS: PANTOPRAZOLE 40 MG/10 ML VIAL IVP SCH (08:19)
[2017-07-12] MEDS: BICALUTAMIDE 50 MG TAB PO SCH ×3 (08:19→20:36)
[2017-07-12] MEDS: METOPROLOL TARTRATE 50 MG TAB PO SCH (08:20)
--- NOTE | 2017-07-12 09:20 | XR ---
EXAMINATION TYPE: XR chest 1V DATE OF EXAM: 07/12/2017 COMPARISON: 07/11/2017 HISTORY: Shortness of breath FINDINGS: There are bilateral pleural effusions with cardiomegaly and bibasilar infiltrate. There is a diffuse interstitial pattern. Atherosclerotic change aorta. IMPRESSION: 1. Diffuse airspace disease bilaterally correlate for pulmonary edema versus diffuse pneumonia
[2017-07-12] MEDS: NOREPINEPHRIN 4 MG-0.9% NS PMX 4 MG/250 ML ML IV SCH ×2 (10:22→20:37)
[2017-07-12] MEDS: CHOLESTYRAMINE (WITH SUGAR) 4 GM PACKET PO SCH ×3 (10:23→17:29)
[2017-07-12] MEDS ORDERED: DEXTROSE 5% IN WATER 100 ML with AMIODARONE 150 MG IV ONE (11:01)
--- NOTE | 2017-07-12 11:08 | P.PN ---
Subjective Progress Note Date: 07/12/17 Principal diagnosis: A. FIB This is a pleasant 81-year-old gentleman who sees Dr. VC Carrion in the office as an outpatient with a past medical history significant for paroxysmal atrial fibrillation as well as prostate cancer who was admitted initially to the fourth floor and was transferred to the intensive care unit because of rectal bleeding. The patient bled significantly from the rectum was bright red blood. 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 He is under the care of Dr. Mcallister at this point. His hemoglobin dropped and the patient received 2 units of packed RBC. The hemoglobin was 7 and increased to 8.6 after the blood transfusion. We initially got involved in the care of the patient because he is in A. fib with heart rate between 100 to 110 beats per minutes. The pressure has been marginally low. Currently the patient is on metoprolol for heart rate control and he was receiving oral anticoagulation but that was stopped. Clinically the patient denies having any chest pain or discomfort or difficulty breathing or heart racing or fluttering feeling at this point. Overall he is weak. The patient was here in May 2017 and at that point he underwent an echocardiogram which revealed normal LV function without significant valvular abnormalities. We signed off on the patient and the patient was then transferred from the intensive care to a non-telemetry unit. Yesterday he went into an acute respiratory distress. He was transferred back to the intensive care unit. An echocardiogram was performed recently and did reveal severe lead impaired LV function with an ejection fraction around 35% with possible anterior mitral leaflet vegetation. We requested to see the patient to perform transesophageal echocardiogram for further clarification. Unfortunately, the patient is in respiratory distress at this point and he is tachypneic. The patient in the current situation, tolerate performing a CHASITY on him. He is in process to be seen by the intensive care unit team and he is possibly need to be intubated. If the patient intubated then it would be safer to perform a CHASITY on him. Anyway he is covered regarding endocarditis at this point. On follow-up with the patient today on 07/12/2017, clinically he seems to be slightly better in terms of the shortness of breath. He still tachypneic and has abdominal breathing. Hemodynamically he is currently hypotensive and requires 10 merna of Levophed. Last night he went into an A. fib with RVR. The chest x-ray continues to show findings consistent with CHF. I am going to DC the Cardizem IV, DC metoprolol by mouth, and start the patient on amiodarone with bolus and drip. Currently he is on Lasix IV. Overall the prognosis is very poor. Objective - Vital Signs Vital signs: Vital Signs Temp 98 F 07/12/17 08:00 Pulse 150 H 07/12/17 10:00 Resp 22 07/12/17 10:00 BP 82/49 07/12/17 10:00 Pulse Ox 97 07/12/17 10:00 Intake & Output 07/11/17 07/12/17 07/12/17 18:59 06:59 18:59 Intake Total 340 140 92.813 Output Total 2585 695 250 Balance -4665 555 -157.187 Weight 119.6 kg 119.2 kg Intake: IV 20 140 40 Sodium Chloride 0.9% 1, 20 140 40 000 ml @ 20 mls/hr IV . Q24H [facility] Rx#:[id number] Intake, IV Titration 320 52.813 Amount Diltiazem 125 mg In 44 Sodium Chloride 0.9% 100 ml @ Titrate IV .Q0M [facility] Rx#:[id number] Magnesium Sulfate-D5w Pmx 200 1 gm In Dextrose/Water 1 100ml.bag @ 100 mls/hr IVPB ONCE ONE Rx#: [id number] Norepinephrin 4 mg-0.9% 8.813 Ns Pmx 4 mg In 250 ml @ Titrate IV .Q0M [facility] Rx#: [id number] Potassium Chloride 20 meq 100 Lidocaine 2% Inj 20 mg In Sodium Chloride 0.9% 100 ml @ 55.5 mls/hr IVPB ONCE ONE Rx#:[id number] Sodium Chloride 0.9% 1, 20 000 ml @ 60 mls/hr IV . [id number] [facility] Rx#:[id number] Output: Urine 585 695 250 Other 2000 Other: Voiding Method Indwelling Catheter Indwelling Catheter Indwelling Catheter - Constitutional General appearance: Present: mild distress - Respiratory Respiratory: bilateral: diminished - Cardiovascular Rhythm: irregularly irregular Heart sounds: normal: S1, S2 - Labs CBC & Chem 7: 07/12/17 05:24 07/12/17 05:24 Labs: Abnormal Lab Results - Last 24 Hours (Table) 07/11/17 07/11/17 07/11/17 Range/Units 11:50 17:09 21:01 WBC (3.8-10.6) k/uL RBC (4.30-5.90) m/uL Hgb (13.0-17.5) gm/dL Hct (39.0-53.0) % MCHC (31.0-37.0) g/dL RDW (11.5-15.5) % Neutrophils # (1.3-7.7) k/uL Sodium (137-145) mmol/L Carbon Dioxide (22-30) mmol/L BUN (9-20) mg/dL Creatinine (0.66-1.25) mg/dL Glucose (74-99) mg/dL POC Glucose (mg/dL) 119 H 152 H 152 H (75-99) mg/dL Calcium (8.4-10.2) mg/dL 07/12/17 07/12/17 07/12/17 Range/Units 05:24 05:24 07:45 WBC 18.9 H (3.8-10.6) k/uL RBC 3.13 L (4.30-5.90) m/uL Hgb 8.2 L (13.0-17.5) gm/dL Hct 27.0 L (39.0-53.0) % MCHC 30.2 L (31.0-37.0) g/dL RDW 16.9 H (11.5-15.5) % Neutrophils # 16.9 H (1.3-7.7) k/uL Sodium 135 L (137-145) mmol/L Carbon Dioxide 17 L (22-30) mmol/L BUN 42 H (9-20) mg/dL Creatinine 4.79 H (0.66-1.25) mg/dL Glucose 141 H (74-99) mg/dL POC Glucose (mg/dL) 143 H (75-99) mg/dL Calcium 8.3 L (8.4-10.2) mg/dL Microbiology - Last 24 Hours (Table) 07/08/17 12:57 Blood Culture - Preliminary Blood No Growth after 72 hours 07/08/17 12:40 Blood Culture - Preliminary Blood No Growth after 72 hours 07/05/17 04:28 Blood Culture - Final Blood No Growth after 144 hours Assessment and Plan Assessment: Assessment #1 A. fib with RVR #2 prostate cancer #3 paroxysmal atrial fibrillation #4 generalized fatigue and tiredness #5 multiple comorbid conditions #6 acute respiratory distress #7 multiple comorbid conditions Plan #1 DC the Cardizem IV and DC metoprolol by mouth #2 start the patient on amiodarone with bolus and drip #3 support the blood pressure and currently the patient is on Levophed #4 follow-up with the patient. The patient does have very poor prognosis.
[2017-07-12] MEDS: AMIODARONE 450 MG in DEXTROSE 5% IN WATER 250 ML IV SCH ×4 (11:49→19:20)
[2017-07-12] MEDS ORDERED: HEPARIN SODIUM,PORCINE 5,000 UNIT/ML 1 ML VIAL ONE (12:05)
[2017-07-12 12:12] LABS: Glucose,Whole Blood 216 mg/dL (75-99)
--- NOTE | 2017-07-12 13:01 | P.PN ---
Subjective Patient is seen in follow-up for acute kidney injury on chronic kidney disease. He is now hemodialysis dependent and received his third treatment this morning with 3.4 L ultrafiltration. He is currently resting in bed. He is on a nasal cannula. Dyspnea is improved. Still has edema. He is also maintained on Lasix drip and is nonoliguric. Oral intake is poor. No vomiting or diarrhea. Vital signs are stable. General: The patient appeared well nourished and normally developed. HEENT: Head exam is unremarkable. Neck is without jugular venous distension. LUNGS: Lungs are clear to auscultation and percussion. Breath sounds decreased. HEART: Rate and Rhythm are regular. First and second heart sounds normal. No murmurs, rubs or gallops. ABDOMEN: Abdominal exam reveals normal bowel sounds. Non-tender and non- distended. No evidence of peritonitis. EXTREMITITES: 2+ edema. Objective - Vital Signs Vital signs: Vital Signs Temp 97.7 F 07/12/17 12:00 Pulse 132 H 07/12/17 12:15 Resp 28 H 07/12/17 12:15 BP 126/53 07/12/17 12:15 Pulse Ox 99 07/12/17 12:15 Intake & Output 07/11/17 07/12/17 07/12/17 18:59 06:59 18:59 Intake Total 340 140 381.480 Output Total 2585 695 295 Balance -2245 -555 86.480 Weight 119.6 kg 119.2 kg Intake: IV 20 140 60 Sodium Chloride 0.9% 1, 20 140 60 000 ml @ 20 mls/hr IV . Q24H [facility] Rx#:[id number] Intake, IV Titration 320 96.480 Amount Diltiazem 125 mg In 87.667 Sodium Chloride 0.9% 100 ml @ Titrate IV .Q0M [facility] Rx#:[id number] Magnesium Sulfate-D5w Pmx 200 1 gm In Dextrose/Water 1 100ml.bag @ 100 mls/hr IVPB ONCE ONE Rx#: [id number] Norepinephrin 4 mg-0.9% 8.813 Ns Pmx 4 mg In 250 ml @ Titrate IV .Q0M [facility] Rx#: [id number] Potassium Chloride 20 meq 100 Lidocaine 2% Inj 20 mg In Sodium Chloride 0.9% 100 ml @ 55.5 mls/hr IVPB ONCE ONE Rx#:[id number] Sodium Chloride 0.9% 1, 20 000 ml @ 60 mls/hr IV . [id number] [facility] Rx#:[id number] Oral 225 Output: Urine 585 695 295 Other 1999 Other: Voiding Method Indwelling Catheter Indwelling Catheter Indwelling Catheter - Labs CBC & Chem 7: 07/12/17 05:24 07/12/17 05:24 Labs: Abnormal Lab Results - Last 24 Hours (Table) 07/11/17 07/11/17 07/12/17 Range/Units 17:09 21:01 05:24 WBC 18.9 H (3.8-10.6) k/uL RBC 3.13 L (4.30-5.90) m/uL Hgb 8.2 L (13.0-17.5) gm/dL Hct 27.0 L (39.0-53.0) % MCHC 30.2 L (31.0-37.0) g/dL RDW 16.9 H (11.5-15.5) % Neutrophils # 16.9 H (1.3-7.7) k/uL Sodium (137-145) mmol/L Carbon Dioxide (22-30) mmol/L BUN (9-20) mg/dL Creatinine (0.66-1.25) mg/dL Glucose (74-99) mg/dL POC Glucose (mg/dL) 152 H 152 H (75-99) mg/dL Calcium (8.4-10.2) mg/dL 07/12/17 07/12/17 07/12/17 Range/Units 05:24 07:45 12:11 WBC (3.8-10.6) k/uL RBC (4.30-5.90) m/uL Hgb (13.0-17.5) gm/dL Hct (39.0-53.0) % MCHC (31.0-37.0) g/dL RDW (11.5-15.5) % Neutrophils # (1.3-7.7) k/uL Sodium 135 L (137-145) mmol/L Carbon Dioxide 17 L (22-30) mmol/L BUN 42 H (9-20) mg/dL Creatinine 4.79 H (0.66-1.25) mg/dL Glucose 141 H (74-99) mg/dL POC Glucose (mg/dL) 143 H 216 H (75-99) mg/dL Calcium 8.3 L (8.4-10.2) mg/dL Microbiology - Last 24 Hours (Table) 07/08/17 12:57 Blood Culture - Preliminary Blood No Growth after 72 hours 07/08/17 12:40 Blood Culture - Preliminary Blood No Growth after 72 hours Assessment and Plan Plan: Assessment: #1. Acute kidney injury on chronic kidney disease now hemodialysis dependent. He had third treatment of hemodialysis this morning with 3.4 L ultrafiltration. #2. Volume overload. #3. Anemia of chronic kidney disease maintained on Aranesp. #4. Metabolic acidosis secondary to acute kidney injury. Expect improvement postdialysis. #5. MRSA bacteremia with question of endocarditis. CHASITY pending. Maintained on antibiotics per infectious disease recommendations. #6. Hypotension currently requiring 10 mics of levofed. #7. Prostate cancer with invasion to the rectum. Plan: Hemodialysis tomorrow with goal 3 L ultrafiltration. Will use cool dialysate due hypotension. Midodrine 10 mg prior to dialysis. Wean vasopressors. Monitor bicarb. May need to add oral supplementation.
[2017-07-12] MEDS ORDERED: MIDODRINE 5 MG TAB PO STA (13:02)
[2017-07-12] MEDS: FUROSEMIDE 250 MG in SODIUM CHLORIDE 0.9% 225 ML IVP SCH (13:40)
--- NOTE | 2017-07-12 15:39 | PN ---
PROGRESS NOTE DATE OF SERVICE: 07/12/2017. REASON FOR FOLLOWUP: MRSA bacteremia and a question of endocarditis. INTERVAL HISTORY: The patient is afebrile. He has been breathing slightly comfortably. He continues to have some shortness of breath, but improved. No chest pain. No bone pain and no diarrhea per the RN. He did have repeat dialysis with removal of 3 L. EXAMINATION: Blood pressure 113/63 with a pulse of 126, temperature 98. He is 100% on 6 L nasal cannula. General description is an elderly male lying in bed in no distress. RESPIRATORY SYSTEM: Unlabored breathing with decreased breath sounds at the base. HEART: S1, S2. Regular rate and rhythm. ABDOMEN: Soft, no tenderness. LABS: Hemoglobin 8.2, white count of 18.8 with a BUN of 42, creatinine 4.79. Blood culture repeat has been negative. DIAGNOSTIC IMPRESSION AND PLAN: 1. Patient with MRSA bacteremia, concern for possible endocarditis. Currently covered with daptomycin, that will be continued for now awaiting the CHASITY once his respiratory status stabilizes. 2. Pseudomonas urinary tract infection with a short course of oral Cipro. Family present at bedside. Their questions were answered. MMODL / IJN: [id number] /
--- NOTE | 2017-07-12 16:41 | P.PN ---
Subjective Progress Note Date: 07/12/17 Principal diagnosis: Acute hypoxic respiratory failure secondary to acute pulmonary edema due to acute renal failure This is a pleasant 81-year-old gentleman who resides at an extended care facility who has a history of coronary artery disease, paroxysmal atrial fibrillation, diabetes mellitus, hyperlipidemia, hypertension, shingles, MRSA infection in the blood and urine. 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 A recent PET scan revealed large hypermetabolic lesion presumed right-sided prostatic carcinoma there is also evidence of extra Chiller extension into the rectum and into the right pelvis causing osseous destruction of medial right MP a pelvic ramus near pubic symphysis. There is metastatic lesion to the liver as well. Patient was readmitted yesterday with fever and generalized weakness. Gentleman admitted to the regular medical floor with suspected urinary tract infection and sepsis. Last evening he developed bright red bleeding from the rectum approximately 50 MLS. He did have a drop in his systolic blood pressure into the 70s and 80s. His hemoglobin was 7.0. He was transferred here to the intensive care unit. He did not require any pressors. Did receive 2 units of packed red blood cells in his current hemoglobin is 8.6. White count 11.7. Creatinine 3.10. AST 158, ALT 106 Blood cultures are revealing presumptive MRSA. His chest x-ray shows mild fluid volume overload with small effusions. He is maintaining O2 saturations in the upper 90s on 2 L/m per nasal cannula. The patient is seen again today 07/04/2017 in follow-up in the intensive care unit. He is oncology overflow patient. He is awake and alert in no acute distress. He's had no further significant rectal bleeding. Hemoglobin 8.8. He has remained hemodynamically stable. Not requiring any pressors. He is found to have MRSA bacteria anemia and gram-negative bacilli in the urine. ID is on the case. He remains on daptomycin and Zosyn. His chest x-ray continues to show evidence of fluid volume overload. He is maintaining O2 saturations in the high 90s on 2 L/m per nasal cannula. He remains in atrial fibrillation with varying ventricular response. Currently off anticoagulants. 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 The plan is to undergo CT simulation and delivery of approximately 4-5 doses. Progress note dated 07/05/2017 This is a 81-year-old male who is an oncology overflow patient. The patient could be transferred out to the oncology floor. He came in with some rectal bleeding. The reason for the rectal bleeding is because he has prostate cancer which apparently is rotated into the bowel. The plan for him is apparently on radiation therapy. The patient is doing relatively well. Feeling a bit weak. The patient does not require any pressors at this time. Hemodynamically stable and his hemoglobin has been stable. The patient remains on daptomycin and Zosyn. The patient otherwise is doing relatively relatively well. Remains on O2 at 2 L. Currently off anticoagulants. Progress note dated 07/06/2017 81-year-old male with a history of off GI bleed. The patient has a history of prostate cancer which is eroded into the rectum. He's an overflow oncology patient can be transferred out to the oncology floor or to general medical floor. The patient's very stable this point. Blood pressure is been stable. Respiratory status is stable. The patient's on O2 at 2 L by nasal cannula and IV of saline at KVO. The patient is not requiring any additional blood. The patient remains on daptomycin and Zosyn. Hemodynamically stable. The plan is for him to get radiation therapy to the prostate area to hopefully stem the bleeding from the lesion is eroding into the rectum. The patient is off all anticoagulants at this time. On 07/10/2017 patient is seen in follow-up on medical surgical floor. He developed an acute episode of respiratory distress, severe orthopnea, and acute dyspnea. His lab work today was reviewed, there is no evidence of leukocytosis , WBC is 7.7, hemoglobin is 8.1, his sodium is 133, his carbon dioxide was 18, his BUN is 55, and creatinine is 5.40. Nephrology has discussed initiation of hemodialysis with him today, patient is in agreement. His oxygenation requirements have increased, this morning he was on 2 L per nasal cannula with O2 sat at 97%, through the day and has deteriorated, and patient is not requiring 5-6 L per nasal cannula with O2 sat at 92-93%. Lung sounds are positive for coarse rales throughout the lung doan bilaterally. He remains afebrile. No other episodes of rectal bleeding was observed. Patient was actually due to start radiation therapy for his prostate cancer today, however in view of his worsening respiratory status, was put on hold. Stat chest x-ray was obtained, and shows worsening decompensated congestive heart failure and confluent pulmonary edema. 80 mg of Lasix IV was given, with no response, patient only made 10 mL of urine. Patient has been progressively more oliguric over the last few days. Has been complaining of worsening appetite and weakness. Dr. Escobedo was consulted for placement of hemodialysis catheter, patient is unable to lay down flat, patient may have to go on the BiPAP support and hemodialysis catheter may have to be placed in the femoral area. We will transfer the patient to the intensive care, and request Dr. Escobedo to place a hemodialysis catheter STEPHEN and initiate hemodialysis as soon as possible. On 07/11/2017 patient remains in the intensive care BiPAP support with pressures 12.5 and FiO2 40%. He had hemodialysis last night would removal of 3 L of fluid, he is scheduled for hemodialysis again today. Is moderately short of breath, lung sounds are positive for coarse rhonchi, rales. And to produce some urine, 10-20 mL per hour. Chest x-ray from 07/11/2017 has been reviewed and shows airspace disease consistent with CHF and pulmonary edema. Support was reviewed, WBCs are up to 14, hemoglobin is 9, serum sodium is 134, serum potassium is 4.1, B1 is 46, creatinine is 5.2, with CO2 of 17. Bilateral lower extremities positive for 1+ pitting edema. Patient was given 80 mg of Lasix with modest response, about 125 mL in the first hour after administration. Continues on ciprofloxacin for Pseudomonas in the urine, daptomycin for the positive blood cultures with MRSA. On 07/12/2017 patient is seen again in the intensive care. Wore the BiPAP mask intermittently last night, this morning he is on 6 L of oxygen, per high flow nasal cannula. Denies worsening dyspnea at rest, still using accessory abdominal muscles. Lung sounds are much improved from yesterday's exam, positive for a few scattered expiratory wheezes over posterior lower basis, but no rhonchi no rales auscultated. Last night patient went into atrial fibrillation with rapid ventricular rate with a rate of 1:30 to 140 BPM. Patient was started on Cardizem drip at 10 mg/hour. He had 2 L removed during hemodialysis yesterday evening, her symptoms. He was started on Lasix drip at 10 mg/hr per nephrology. His urine output has improved, averaging 60-100 mL per hour. Overall his net fluid balance is -2800 mL in the last 24 hours. He is currently having another hemodialysis treatment, with a target removal of 3 L today. Patient is hypotensive with systolic in the 70s and 80s, still tachycardic with a rate of 120-120 BPM. May have to restart vasopressor support with levophed. Chest x-ray from December 30 was reviewed and shows diffuse wheezes bilaterally, pulmonary edema versus diffuse pneumonia. Cultures are negative, patient has MRSA bacteremia, concern for possible endocarditis. Currently, covered with daptomycin. Cardiology is unable to proceed with CHASITY the view of patient's respiratory status. Continue oral Cipro for pseudomonal unit tract infection. Overall the patient states his breathing is easier today. Objective - Vital Signs Vital signs: Vital Signs Temp 98 F 07/12/17 08:00 Pulse 150 H 07/12/17 09:00 Resp 28 H 07/12/17 09:00 BP 97/55 07/12/17 09:00 Pulse Ox 96 07/12/17 09:00 Intake & Output 07/11/17 07/12/17 07/12/17 18:59 06:59 18:59 Intake Total 340 140 74 Output Total 2585 695 230 Balance -2245 -555 -156 Weight 119.6 kg 119.2 kg Intake: IV 20 140 30 Sodium Chloride 0.9% 1, 20 140 30 000 ml @ 20 mls/hr IV . Q24H [facility] Rx#:[id number] Intake, IV Titration 320 44 Amount Diltiazem 125 mg In 44 Sodium Chloride 0.9% 100 ml @ Titrate IV .Q0M [facility] Rx#:[id number] Magnesium Sulfate-D5w Pmx 200 1 gm In Dextrose/Water 1 100ml.bag @ 100 mls/hr IVPB ONCE ONE Rx#: [id number] Potassium Chloride 20 meq 100 Lidocaine 2% Inj 20 mg In Sodium Chloride 0.9% 100 ml @ 55.5 mls/hr IVPB ONCE ONE Rx#:[id number] Sodium Chloride 0.9% 1, 20 000 ml @ 60 mls/hr IV . [id number] [facility] Rx#:[id number] Output: Urine 585 695 230 Other 2000 Other: Voiding Method Indwelling Catheter Indwelling Catheter Indwelling Catheter - Exam No acute distress, oriented 3. HEENT examination is grossly unremarkable. Mucous membranes are moist. No oral lesions. Neck supple. Full range of motion. No adenopathy thyromegaly or neck vein distention. Cardiovascular examination reveals irregular rhythm. S1-S2 normal. No S3 or S4. No discernible murmur noted. Lungs sounds are diminished, with expiratory wheezes posterior lower bases. Patient is less tachypneic today, less dyspneic at rest,, although still is abdominal accessory muscles. Abdomen soft bowel sounds are heard. No masses or tenderness. Extremities are intact. No cyanosis clubbing or edema. Skin is without rash or lesion. Neurologic examination is brief but nonfocal. - Labs CBC & Chem 7: 07/12/17 05:24 07/12/17 05:24 Labs: Abnormal Lab Results - Last 24 Hours (Table) 07/11/17 07/11/17 07/11/17 Range/Units 11:50 17:09 21:01 WBC (3.8-10.6) k/uL RBC (4.30-5.90) m/uL Hgb (13.0-17.5) gm/dL Hct (39.0-53.0) % MCHC (31.0-37.0) g/dL RDW (11.5-15.5) % Neutrophils # (1.3-7.7) k/uL Sodium (137-145) mmol/L Carbon Dioxide (22-30) mmol/L BUN (9-20) mg/dL Creatinine (0.66-1.25) mg/dL Glucose (74-99) mg/dL POC Glucose (mg/dL) 119 H 152 H 152 H (75-99) mg/dL Calcium (8.4-10.2) mg/dL 07/12/17 07/12/17 07/12/17 Range/Units 05:24 05:24 07:45 WBC 18.9 H (3.8-10.6) k/uL RBC 3.13 L (4.30-5.90) m/uL Hgb 8.2 L (13.0-17.5) gm/dL Hct 27.0 L (39.0-53.0) % MCHC 30.2 L (31.0-37.0) g/dL RDW 16.9 H (11.5-15.5) % Neutrophils # 16.9 H (1.3-7.7) k/uL Sodium 135 L (137-145) mmol/L Carbon Dioxide 17 L (22-30) mmol/L BUN 42 H (9-20) mg/dL Creatinine 4.79 H (0.66-1.25) mg/dL Glucose 141 H (74-99) mg/dL POC Glucose (mg/dL) 143 H (75-99) mg/dL Calcium 8.3 L (8.4-10.2) mg/dL Microbiology - Last 24 Hours (Table) 07/08/17 12:57 Blood Culture - Preliminary Blood No Growth after 72 hours 07/08/17 12:40 Blood Culture - Preliminary Blood No Growth after 72 hours 07/05/17 04:28 Blood Culture - Final Blood No Growth after 144 hours Assessment and Plan Plan: Assessment: #1. Acute hypoxic respiratory failure secondary to acute pulmonary edema due to acute on chronic renal failure #2 Acute rectal bleeding secondary to invading prostate mass, resolved. Status post 2 units of packed red blood cell infusions. Current hemoglobin 8.2. #3 Large hypermetabolic lesion of right-sided prostatic carcinoma with evidence of extra capsular extension into the rectum and into the right pelvis causing osseous distraction of medial right inferior pelvic ramus near pubic symphysis. Metastatic lesion to the liver. #4 Sepsis secondary to MRSA bacteremia, on daptomycin. There is a concern for endocarditis, unable to proceed with CHASITY at this time due to patient's marginal respiratory status continued to pulmonary edema. #5 Acute urinary tract infection, urine culture positive for pseudomonas aeruginosa, sensitive to Cipro. #6 Acute on chronic renal failure, current creatinine 4.79, patient is currently on hemodialysis. #7 Elevated liver enzymes with metastatic liver lesion. #8 Paroxysmal atrial fibrillation. #9 Coronary artery disease. #10 Diabetes mellitus. #11 Hyperlipidemia. #12 Hypertension. #13 History of shingles. 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 Plan: Patient continues on BiPAP, less tachypneic, reports improvement in his dyspnea. Chest x-ray shows persistent pulmonary edema. Patient's on hemodialysis again today with the target fluid removal of 3 L. Start norepinephrine to maintain map of 65. Continue Cardizem drip for rate control, may have to switch to amiodarone. Continue Lasix drip. Continue with daptomycin and ciprofloxacin per ID recommendation for the MRSA in the blood cultures and pseudomonas in the urine. Echocardiogram from 07/05/2017 could not exclude vegetation on the anterior mitral leaflet, however in view of patient's marginal respiratory status cardiology is unable to proceed with CHASITY at this point. I performed a history & physical examination of the patient and discussed their management with my nurse practitioner, Dilcia Serrano. I reviewed the nurse practitioner's note and agree with the documented findings and plan of care. Lung sounds are positive expiratory wheezes over post bases. The findings and the impression was discussed with the patient. I attest to the documentation by the nurse practitioner. Time with Patient: Greater than 30
[2017-07-12 17:11] LABS: Glucose,Whole Blood 353 mg/dL (75-99)
[2017-07-12 17:11] LABS: Glucose,Whole Blood 423 mg/dL (75-99)
[2017-07-12 20:13] LABS: Glucose,Whole Blood 357 mg/dL (75-99)
--- NOTE | 2017-07-12 20:48 | PN ---
PROGRESS NOTE DATE OF SERVICE: 07/12/2017 PRESENTING COMPLAINT: Short of breath. INTERVAL HISTORY: This 81-year-old patient is a resident of [facility], being followed there by Dr. Martinez. He has multiple medical problems. The patient has MRSA bacteremia, suspected to have endocarditis; pending CHASITY. He is also being treated for UTI. The patient is status post being on the ventilator requiring oxygen, not eating much, still short of breath. The patient also has acute renal failure and is on hemodialysis. The patient is also running low blood pressure, on a Levophed drip. The patient's heart rate is also uncontrolled, on an amiodarone drip. The patient's son and are at the bedside. The patient also has metastatic prostate cancer with involvement of the rectum causing GI bleed. The patient did require a blood transfusion. Rather weak and tired. PHYSICAL EXAMINATION: VITAL SIGNS: Temperature 97.7, pulse 125, respiration 24, blood pressure 118/51, pulse 100% on 6 L. GENERAL APPEARANCE: Sitting up in bed, tired-appearing, short of breath. EYES: Pupils equal. Conjunctivae normal. NECK: JVD not raised. Mass not palpable. RESPIRATORY: Effort increased. LUNGS: Diminished breath sounds. Basal crackles. CARDIOVASCULAR: Heart sounds irregular. Edema present. ABDOMEN: Soft, nontender. Liver and spleen palpable. Soft. PSYCHIATRIC: Alert and oriented x3. Mood and affect somewhat anxious-appearing. Generalized edema present otherwise. INVESTIGATIONS: White count 18.9, hemoglobin 8.2, platelets 228, potassium 4, BUN 42, creatinine 4.79. Chest x-ray shows pleural effusion, possible infiltrate, some interstitial pattern. Patient's blood cultures are negative from 07/05. Blood cultures were positive on 07/04/17, growing MRSA. Urine culture has grown pseudomonas. ASSESSMENT: 1. Methicillin-resistant Staphylococcus aeruginosa bacteremia with suspicion for underlying endocarditis; pending transesophageal echocardiogram. 2. Acute urinary tract infection with pseudomonas, status post antibiotic. 3. Volume overload, multifactorial. 4. Anemia, multifactorial, including that of chronic kidney disease and some blood loss. 5. Metabolic acidosis from acute kidney injury. 6. Acute kidney injury from acute tubular necrosis, including hypertension. 7. Chronic kidney disease, possibly from nephrosclerosis. 8. Hypotensive shock, possibly cardiogenic. The patient has been on Levophed. 9. Persistent atrial fibrillation, uncontrolled, on IV amiodarone. 10.Metastatic prostate cancer with involvement to the bone, including the inferior pubic rami, liver on PET scan, and the rectum, causing rectal bleeding. The patient is getting palliative radiation treatment and Casodex. 11.Acute blood loss anemia from gastrointestinal bleed from metastatic prostate cancer to the rectum, having received 2 units of packed red blood cells. 12.Diabetes mellitus, type 2, chronic. 13.Hypertension, history of. 14.Hyperlipidemia. 15.Acute congestive heart failure from systolic dysfunction, ejection fraction 30% to 35%; could be arrhythmia-induced. 16.Acute hypoxic respiratory failure, status post ventilator support; patient currently on 6 L oxygen. 17.Acute renal failure, likely acute tubular necrosis, now requiring hemodialysis. 18.CODE STATUS: FULL. PLAN: The patient's current medications include DuoNeb, IV amiodarone, Casodex, ciprofloxacin, IV daptomycin, Aranesp, IV Lasix drip, Levophed drip. The patient did get hemodialysis today. Three liters were removed. Prognosis is not good; multiple problems. Advanced care planning: I had a talk with the patient and his and a son at the bedside. The patient takes his own decisions at the present time. He does understand the guarded prognosis of multiple problems, especially that his heart is weak at 30%, atrial fibrillation, now renal failure and metastatic cancer. Prognosis is not good. At this point he still remains FULL CODE, but he will be thinking now about a code status of DO NOT RESUSCITATE. I also discussed this with Dr. Edmonds. Time spent for this discussion was about 20-25 minutes in addition to the progress note. Overall prognosis is not good. MMODL / IJN: [id number] /
[2017-07-13] MEDS ORDERED: MIDODRINE 5 MG TAB PO ONE (05:00)
[2017-07-13 05:25] LABS: Anisocytosis Slight; Basophils % (A) 0 %; Eosinophils # (A) 0.1 k/uL (0-0.7); Eosinophils % (A) 0 %; HCT 25.4 % (39.0-53.0); HGB 7.6 gm/dL (13.0-17.5); Hypochromasia Marked; Lymphocytes # (A) 0.9 k/uL (1.0-4.8); Lymphocytes % (A) 5 %; MCH 26.5 pg (25.0-35.0); MCHC 30.1 g/dL (31.0-37.0); MCV 88.1 fL (80.0-100.0); Mean Platelet Volume 7.1; Monocytes # (A) 0.5 k/uL (0-1.0); Monocytes % (A) 3 %; Neutrophils # (A) 18.4 k/uL (1.3-7.7); Neutrophils % (A) 92 %; Platelet Count 216 k/uL (150-450); Poikilocytosis Slight; RBC 2.88 m/uL (4.30-5.90); RDW 17.2 % (11.5-15.5)
[2017-07-13 05:37] LABS: Calcium 8.1 mg/dL (8.4-10.2); Magnesium 1.8 mg/dL (1.6-2.3); Potassium 3.1 mmol/L (3.5-5.1)
[2017-07-13] MEDS: INSULIN ASPART 100 UNIT/ML 1 ML 10 ML VIAL SQ SCH ×2 (06:58→13:21)
[2017-07-13] MEDS ORDERED: MAGNESIUM SULFATE-D5W PMX 1 GM in DEXTROSE/WATER 1 100ML.BAG IVPB ONE (07:00)
[2017-07-13] MEDS: POTASSIUM CHLORIDE ER 20 MEQ TAB.ER PO SCH ×4 (07:18→19:57)
[2017-07-13] MEDS: IPRATROPIUM-ALBUTEROL 3 ML NEB INHALATION SCH ×4 (07:38→19:19)
--- NOTE | 2017-07-13 08:19 | XR ---
EXAMINATION TYPE: XR chest 1V DATE OF EXAM: 07/13/2017 COMPARISON: 07/12/2017 HISTORY: Shortness of breath FINDINGS: There are bilateral pleural effusions with cardiomegaly and bibasilar infiltrate. There is a diffuse interstitial pattern. Atherosclerotic change of the aorta. Hypertrophic change of the spine. IMPRESSION: 1. Stable diffuse airspace disease. Differential diagnosis includes pulmonary edema or diffuse pneumo sada.
[2017-07-13] MEDS: HYDROmorphone 1 MG/ML 1 ML SYRINGE IVP PRN (08:20)
[2017-07-13] MEDS: BICALUTAMIDE 50 MG TAB PO SCH ×2 (08:27→20:10)
[2017-07-13] MEDS: AMIODARONE 450 MG in DEXTROSE 5% IN WATER 250 ML IV SCH ×4 (08:28→09:33)
[2017-07-13] MEDS: PANTOPRAZOLE 40 MG/10 ML VIAL IVP SCH (08:28)
[2017-07-13] MEDS: CHOLESTYRAMINE (WITH SUGAR) 4 GM PACKET PO SCH ×2 (09:32→17:30)
[2017-07-13] MEDS ORDERED: HEPARIN SODIUM,PORCINE 5,000 UNIT/ML 1 ML VIAL ONE (10:50)
[2017-07-13 12:10] LABS: Glucose,Whole Blood 382 mg/dL (75-99)
--- NOTE | 2017-07-13 12:25 | XR ---
EXAMINATION TYPE: XR chest 1V portable DATE OF EXAM: 07/13/2017 COMPARISON: 07/13/2017 HISTORY: Post dialysis FINDINGS: There are bilateral pleural effusions with cardiomegaly and bibasilar infiltrate. There is a diffuse interstitial pattern. Atherosclerotic change aorta. IMPRESSION: 1. Stable diffuse bilateral airspace disease correlate for pulmonary edema versus diffuse pneumonia
--- NOTE | 2017-07-13 12:31 | P.PN ---
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 This is a pleasant 81-year-old gentleman who resides at an extended care facility who has a history of coronary artery disease, paroxysmal atrial fibrillation, diabetes mellitus, hyperlipidemia, hypertension, shingles, MRSA infection in the blood and urine. 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 A recent PET scan revealed large hypermetabolic lesion presumed right-sided prostatic carcinoma there is also evidence of extra Chiller extension into the rectum and into the right pelvis causing osseous destruction of medial right MP a pelvic ramus near pubic symphysis. There is metastatic lesion to the liver as well. Patient was readmitted yesterday with fever and generalized weakness. Gentleman admitted to the regular medical floor with suspected urinary tract infection and sepsis. Last evening he developed bright red bleeding from the rectum approximately 50 MLS. He did have a drop in his systolic blood pressure into the 70s and 80s. His hemoglobin was 7.0. He was transferred here to the intensive care unit. He did not require any pressors. Did receive 2 units of packed red blood cells in his current hemoglobin is 8.6. White count 11.7. Creatinine 3.10. AST 158, ALT 106 Blood cultures are revealing presumptive MRSA. His chest x-ray shows mild fluid volume overload with small effusions. He is maintaining O2 saturations in the upper 90s on 2 L/m per nasal cannula. On 07/10/2017 patient is seen in follow-up on medical surgical floor. He developed an acute episode of respiratory distress, severe orthopnea, and acute dyspnea. His lab work today was reviewed, there is no evidence of leukocytosis , WBC is 7.7, hemoglobin is 8.1, his sodium is 133, his carbon dioxide was 18, his BUN is 55, and creatinine is 5.40. Nephrology has discussed initiation of hemodialysis with him today, patient is in agreement. His oxygenation requirements have increased, this morning he was on 2 L per nasal cannula with O2 sat at 97%, through the day and has deteriorated, and patient is not requiring 5-6 L per nasal cannula with O2 sat at 92-93%. Lung sounds are positive for coarse rales throughout the lung doan bilaterally. He remains afebrile. No other episodes of rectal bleeding was observed. Patient was actually due to start radiation therapy for his prostate cancer today, however in view of his worsening respiratory status, was put on hold. Stat chest x-ray was obtained, and shows worsening decompensated congestive heart failure and confluent pulmonary edema. 80 mg of Lasix IV was given, with no response, patient only made 10 mL of urine. Patient has been progressively more oliguric over the last few days. Has been complaining of worsening appetite and weakness. Dr. Escobedo was consulted for placement of hemodialysis catheter, patient is unable to lay down flat, patient may have to go on the BiPAP support and hemodialysis catheter may have to be placed in the femoral area. We will transfer the patient to the intensive care, and request Dr. Escobedo to place a hemodialysis catheter STEPHEN and initiate hemodialysis as soon as possible. On 07/11/2017 patient remains in the intensive care BiPAP support with pressures 12.5 and FiO2 40%. He had hemodialysis last night would removal of 3 L of fluid, he is scheduled for hemodialysis again today. Is moderately short of breath, lung sounds are positive for coarse rhonchi, rales. And to produce some urine, 10-20 mL per hour. Chest x-ray from 07/11/2017 has been reviewed and shows airspace disease consistent with CHF and pulmonary edema. Support was reviewed, WBCs are up to 14, hemoglobin is 9, serum sodium is 134, serum potassium is 4.1, B1 is 46, creatinine is 5.2, with CO2 of 17. Bilateral lower extremities positive for 1+ pitting edema. Patient was given 80 mg of Lasix with modest response, about 125 mL in the first hour after administration. Continues on ciprofloxacin for Pseudomonas in the urine, daptomycin for the positive blood cultures with MRSA. On 07/12/2017 patient is seen again in the intensive care. Wore the BiPAP mask intermittently last night, this morning he is on 6 L of oxygen, per high flow nasal cannula. Denies worsening dyspnea at rest, still using accessory abdominal muscles. Lung sounds are much improved from yesterday's exam, positive for a few scattered expiratory wheezes over posterior lower basis, but no rhonchi no rales auscultated. Last night patient went into atrial fibrillation with rapid ventricular rate with a rate of 1:30 to 140 BPM. Patient was started on Cardizem drip at 10 mg/hour. He had 2 L removed during hemodialysis yesterday evening, her symptoms. He was started on Lasix drip at 10 mg/hr per nephrology. His urine output has improved, averaging 60-100 mL per hour. Overall his net fluid balance is -2800 mL in the last 24 hours. He is currently having another hemodialysis treatment, with a target removal of 3 L today. Patient is hypotensive with systolic in the 70s and 80s, still tachycardic with a rate of 120-120 BPM. May have to restart vasopressor support with levophed. Chest x-ray from December 30 was reviewed and shows diffuse wheezes bilaterally, pulmonary edema versus diffuse pneumonia. Cultures are negative, patient has MRSA bacteremia, concern for possible endocarditis. Currently, covered with daptomycin. Cardiology is unable to proceed with CHASITY the view of patient's respiratory status. Continue oral Cipro for pseudomonal unit tract infection. Overall the patient states his breathing is easier today. The patient is seen again today 07/13/2017 in follow-up in the intensive care unit. He is awake and alert in no acute distress. He did have an episode of chest discomfort. EKG revealed no significant changes. He was given Dilaudid which his pain was relieved. The pain was somewhat atypical it was on the right side and reproducible with palpation. He is down to 5 L/m per nasal cannula to maintain O2 saturations in the 90s. He did not require BiPAP support last night. He had over 3 L removed yesterday via dialysis and another 4 L this morning. His chest x-ray continues to show bilateral infiltrates more so on the right upper lung. He is continued on a Lasix drip at 10 mg per hour. He remains in atrial fibrillation. He remains on amiodarone drip at 0.5 mg/ m. He was off the norepinephrine throughout the night. It was resumed early this morning during dialysis at 6 mcg/m. Currently down to 4 g. Follow-up blood cultures reveal no growth. Initial blood cultures were positive for MRSA. Urine was positive for Pseudomonas. He remains on daptomycin and Ciprofloxacillin. White count 20.0. Hemoglobin 7.6. Creatinine 3.90. His appetite is poor. He is drinking Ensure. Objective - Vital Signs Vital signs: Vital Signs Temp 97.7 F 07/13/17 12:00 Pulse 130 H 07/13/17 12:15 Resp 27 H 07/13/17 12:15 BP 97/52 07/13/17 12:15 Pulse Ox 100 07/13/17 12:15 Intake & Output 07/12/17 07/13/17 07/13/17 18:59 06:59 18:59 Intake Total 1058.264 314.222 616.755 Output Total 3897 915 4315 Balance -2838.736 -600.778 -3698.245 Weight 114 kg 114 kg Intake: IV 100 120 60 Sodium Chloride 0.9% 1, 100 120 60 000 ml @ 20 mls/hr IV . Q24H [facility] Rx#:[id number] Intake, IV Titration 733.264 94.222 331.755 Amount Amiodarone 450 mg In 225.596 16.972 245.38 Dextrose 5% in Water 250 ml @ 1 MG/MIN 34.53 mls/ hr IV .Q7H31M [facility] Rx#: [id number] Diltiazem 125 mg In 87.667 Sodium Chloride 0.9% 100 ml @ Titrate IV .Q0M [facility] Rx#:[id number] Furosemide 250 mg In 228 Sodium Chloride 0.9% 225 ml @ 10 MG/HR 10 mls/hr IVP .Q24H [facility] Rx#: [id number] Norepinephrin 4 mg-0.9% 192.001 77.250 86.375 Ns Pmx 4 mg In 250 ml @ Titrate IV .Q0M [facility] Rx#: [id number] Oral 225 100 225 Output: Urine 496 915 315 Stool 1 Other 3400 4000 Other: Voiding Method Indwelling Catheter Indwelling Catheter Indwelling Catheter - Exam GENERAL EXAM: Alert, fairly comfortable in no apparent distress. HEAD: Normocephalic. EYES: Normal reaction of pupils, equal size. NOSE: Clear with pink turbinates. THROAT: No erythema or exudates. NECK: No masses, no JVD. CHEST: No chest wall deformity. LUNGS: Equal air entry with crackles posterior bases. CVS: S1 and S2 normal with no audible murmur, irregular rhythm. ABDOMEN: No hepatosplenomegaly, normal bowel sounds, no guarding or rigidity. SPINE: No scoliosis or deformity SKIN: No rashes CENTRAL NERVOUS SYSTEM: No focal deficits, tone is normal in all 4 extremities. EXTREMITIES: There is no peripheral edema. No clubbing, no cyanosis. Peripheral pulses are intact. - Labs CBC & Chem 7: 07/13/17 04:58 07/13/17 04:58 Labs: Abnormal Lab Results - Last 24 Hours (Table) 07/12/17 07/12/17 07/12/17 Range/Units 17:06 17:08 20:12 WBC (3.8-10.6) k/uL RBC (4.30-5.90) m/uL Hgb (13.0-17.5) gm/dL Hct (39.0-53.0) % MCHC (31.0-37.0) g/dL RDW (11.5-15.5) % Neutrophils # (1.3-7.7) k/uL Lymphocytes # (1.0-4.8) k/uL Sodium (137-145) mmol/L Potassium (3.5-5.1) mmol/L Carbon Dioxide (22-30) mmol/L BUN (9-20) mg/dL Creatinine (0.66-1.25) mg/dL Glucose (74-99) mg/dL POC Glucose (mg/dL) 423 H 353 H 357 H (75-99) mg/dL Calcium (8.4-10.2) mg/dL 07/13/17 07/13/17 07/13/17 Range/Units 04:58 04:58 12:09 WBC 20.0 H (3.8-10.6) k/uL RBC 2.88 L (4.30-5.90) m/uL Hgb 7.6 L (13.0-17.5) gm/dL Hct 25.4 L (39.0-53.0) % MCHC 30.1 L (31.0-37.0) g/dL RDW 17.2 H (11.5-15.5) % Neutrophils # 18.4 H (1.3-7.7) k/uL Lymphocytes # 0.9 L (1.0-4.8) k/uL Sodium 133 L (137-145) mmol/L Potassium 3.1 L (3.5-5.1) mmol/L Carbon Dioxide 18 L (22-30) mmol/L BUN 32 H (9-20) mg/dL Creatinine 3.90 H (0.66-1.25) mg/dL Glucose 252 H (74-99) mg/dL POC Glucose (mg/dL) 382 H (75-99) mg/dL Calcium 8.1 L (8.4-10.2) mg/dL Microbiology - Last 24 Hours (Table) 07/08/17 12:57 Blood Culture - Preliminary Blood No Growth after 96 hours 07/08/17 12:40 Blood Culture - Preliminary Blood No Growth after 96 hours Assessment and Plan Assessment: Impression: #1 Acute rectal bleeding secondary to invading prostate mass. Status post 2 units of packed red blood cell infusions. Current hemoglobin 7.6. #2 Large hypermetabolic lesion of right-sided prostatic carcinoma with evidence of extra capsular extension into the rectum and into the right pelvis causing osseous distraction of medial right inferior pelvic ramus near pubic symphysis. Metastatic lesion to the liver. #3 Sepsis secondary to MRSA bacteremia. #4 Acute on chronic renal failure, requiring recent daily hemodialysis. Current creatinine 3.90. #5 Elevated liver enzymes with metastatic liver lesion. #6 Paroxysmal atrial fibrillation. #7 Coronary artery disease. #8 Diabetes mellitus. #9 Hyperlipidemia. #10 Hypertension. #11 History of shingles. #12 [facility] resident. Plan: The patient was seen and evaluated by Dr. Edmonds. His chest x-ray and labs were reviewed. He has improved in regards to his oxygenation requirements. He has received dialysis daily and another 4 L removed today. His chest x-ray continues to show bibasilar bilateral infiltrates more so on the right upper lung. He is on a Lasix drip at 10 mg per hour. He is remaining on amiodarone at 0.5 mg/m. Antibiotics in the form of ciprofloxacin and daptomycin continued. Overall prognosis is quite poor and the multiple comorbidities and metastatic prostate cancer. The patient has requested to be a DO NOT RESUSCITATE/DO NOT INTUBATE CODE STATUS. We'll continue to monitor him here closely in the intensive care unit. The plan is for another dialysis treatment tomorrow. We'll continue to follow and make further recommendations based on his clinical status. I, the cosigning physician, have performed a history and physical examination on the patient. Lung sounds have crackles in the bilateral posterior bases.. Maintaining good O2 saturations in the 90s on 5 L/m per nasal cannula. I have discussed the assessment and plan of care with my nurse practitioner, Karmen Seo. I attest the above documented note as dictated by her. <Jackson Edmonds - Last Filed: 07/13/17 16:49> Objective - Vital Signs Vital signs: Vital Signs Temp 97.9 F 07/13/17 16:00 Pulse 136 H 07/13/17 16:15 Resp 24 07/13/17 16:15 BP 94/69 07/13/17 16:15 Pulse Ox 100 07/13/17 16:15 Intake & Output 07/12/17 07/13/17 07/13/17 18:59 06:59 18:59 Intake Total 1058.264 199.884 5022.755 Output Total 3897 915 4476 Balance -2838.736 -600.778 -3082.245 Weight 114 kg 114 kg Intake: IV 100 120 100 Sodium Chloride 0.9% 1, 100 120 100 000 ml @ 20 mls/hr IV . Q24H [facility] Rx#:[id number] Intake, IV Titration 733.264 94.222 581.755 Amount Amiodarone 450 mg In 225.596 16.972 245.38 Dextrose 5% in Water 250 ml @ 1 MG/MIN 34.53 mls/ hr IV .Q7H31M [facility] Rx#: [id number] Diltiazem 125 mg In 87.667 Sodium Chloride 0.9% 100 ml @ Titrate IV .Q0M [facility] Rx#:[id number] Furosemide 250 mg In 228 250 Sodium Chloride 0.9% 225 ml @ 10 MG/HR 10 mls/hr IVP .Q24H [facility] Rx#: [id number] Norepinephrin 4 mg-0.9% 192.001 77.250 86.375 Ns Pmx 4 mg In 250 ml @ Titrate IV .Q0M [facility] Rx#: [id number] Oral 225 100 475 Tube Feeding 237 Output: Urine 496 915 475 Stool 1 1 Other 3400 4000 Other: Voiding Method Indwelling Catheter Indwelling Catheter Indwelling Catheter - Labs CBC & Chem 7: 07/13/17 04:58 07/13/17 15:44 Labs: Abnormal Lab Results - Last 24 Hours (Table) 01/10/2407/12/17 07/12/17 Range/Units 17:06 17:08 20:12 WBC (3.8-10.6) k/uL RBC (4.30-5.90) m/uL Hgb (13.0-17.5) gm/dL Hct (39.0-53.0) % MCHC (31.0-37.0) g/dL RDW (11.5-15.5) % Neutrophils # (1.3-7.7) k/uL Lymphocytes # (1.0-4.8) k/uL Sodium (137-145) mmol/L Potassium (3.5-5.1) mmol/L Carbon Dioxide (22-30) mmol/L BUN (9-20) mg/dL Creatinine (0.66-1.25) mg/dL Glucose (74-99) mg/dL POC Glucose (mg/dL) 423 H 353 H 357 H (75-99) mg/dL Calcium (8.4-10.2) mg/dL 07/13/17 07/13/17 07/13/17 Range/Units 04:58 04:58 12:09 WBC 20.0 H (3.8-10.6) k/uL RBC 2.88 L (4.30-5.90) m/uL Hgb 7.6 L (13.0-17.5) gm/dL Hct 25.4 L (39.0-53.0) % MCHC 30.1 L (31.0-37.0) g/dL RDW 17.2 H (11.5-15.5) % Neutrophils # 18.4 H (1.3-7.7) k/uL Lymphocytes # 0.9 L (1.0-4.8) k/uL Sodium 133 L (137-145) mmol/L Potassium 3.1 L (3.5-5.1) mmol/L Carbon Dioxide 18 L (22-30) mmol/L BUN 32 H (9-20) mg/dL Creatinine 3.90 H (0.66-1.25) mg/dL Glucose 252 H (74-99) mg/dL POC Glucose (mg/dL) 382 H (75-99) mg/dL Calcium 8.1 L (8.4-10.2) mg/dL Microbiology - Last 24 Hours (Table) 07/08/17 12:57 Blood Culture - Preliminary Blood No Growth after 120 hours 07/08/17 12:40 Blood Culture - Preliminary Blood No Growth after 120 hours Assessment and Plan Assessment: This is a joint evaluation that was done along with a nurse practitioner. I attest to the above-mentioned information. This patient has metastatic prostate cancer. He is also an acute kidney injury. Fortunately his urine output is improving. The patient underwent hemodialysis today. A repeat chest x-ray was done post dialysis and it showed stable diffuse bilateral airspace disease consistent with pulmonary edema. Pneumonia is felt to be less likely especially the patient is improving with dialysis and ultrafiltration. The patient remains on broad-spectrum antibiotics. A 2 fibrillation becomes an active issue and the patient on amiodarone. The patient is also on few mics of norepinephrine infusion for hemodynamic support. Atelectatic discussion with the patient. He opted to change his CODE STATUS to DNR/DNI. I think it's reasonable pressure with his extensive prostate cancer which is metastatic at this point. He is on the case regarding the atrial fibrillation. Echocardiac and frozen impaired LV function with an ejection fraction of 30%. We'll follow. Prognosis remains poor. This is a critically care evaluation that was done and more than 30 minutes. Time with Patient: Greater than 30
[2017-07-13] MEDS: CIPROFLOXACIN HCL 500 MG TAB PO SCH (12:50)
[2017-07-13] MEDS: HYDROmorphone 2 MG/ML 1 ML SYRINGE IVP PRN ×3 (12:50→21:21)
[2017-07-13] MEDS: FUROSEMIDE 250 MG in SODIUM CHLORIDE 0.9% 225 ML IVP SCH (15:30)
--- NOTE | 2017-07-13 15:49 | PN ---
PROGRESS NOTE DATE OF SERVICE: 07/13/17. ATTENDING NOTE: Patient seen and examined by me. I discussed with nurse practitioner, Stephany. The patient is a little bit less short of breath. Not tired. Eating only small amounts. MEDICATIONS: Current medications include DuoNeb, Casodex, Questran, ciprofloxacin IV, daptomycin IV, Lasix drip. PHYSICAL EXAMINATION: Temperature 97.7, pulse 131, respiratory 21, blood pressure 106/46. ASSESSMENT: 1. MRSA bacteremia, suspicion for underlying endocarditis, pending CHASITY. 2. Volume overload, multifactorial. Patient still has significant edema. 3. Persistent atrial fibrillation, uncontrolled. 4. Metastatic prostate cancer. 5. Acute congestive heart failure exacerbation, EF 35%, slow to respond. PLAN: Multiple medical problems. Care was discussed with the patient. I spoke to Dr. Edmonds earlier today. The patient now wants to be DO NOT RESUSCITATE CODE he has decided. Will put the audit through. Overall prognosis does not remain good. Patient is poor/slow to respond. MMODL / IJN: [id number] /
--- NOTE | 2017-07-13 15:58 | PN ---
PROGRESS NOTE DATE OF SERVICE: 07/12/17. ADDENDUM: REVIEW OF SYSTEMS: Done for constitutional, cardiovascular, GI, pulmonary; relevant findings as above. CURRENT MEDICATIONS: Reviewed in the electronic records. MMODL / IJN: [id number] /
[2017-07-13 16:00] LABS: Hepatitis A Antibody IgM Non-Reactive (Non-Reactive); Hepatitis B Core IgM Non-Reactive (Non-Reactive); Hepatitis B Surface AB- Quant 3.5 mIU/mL
--- NOTE | 2017-07-13 16:05 | P.PN ---
Progress Note - Text Progress Note Date: 07/13/17 DATE OF SERVICE: 07/13/2017 PRESENTING COMPLAINT: Shortness of breath HISTORY OF PRESENT ILLNESS: 81-year-old male resident of [facility] [place] the [place] with multiple medical problems who presented with fever and generalized weakness, admitted to the regular medical floor with a suspected UTI infection and sepsis.Patient developed bright red blood per rectum and his systolic blood pressure dropped into the 70s and 80s. Hemoglobin was 7.0. Transferred to the ICU. Received 2 units of packed red cells. Elevated kidney function requiring placement of a temporary hemodialysis catheter and hemodialysis has been initiated by nephrology. Became increasingly more short of breath requiring BiPAP support. Has received multiple doses of Lasix, continues to be on and off the BiPAP, Cardizem drip initiated to help control heart rate, Lasix drip initiated to help diurese the patient, receives Levophed for blood pressure support. Has MRSA bacteremia concerns for possible endocarditis however patient is unable to lie flat for CHASITY. Has metastatic prostate cancer with involvement of the rectum causing a GI bleed. INTERVAL HISTORY: 07/13/2017: Patient lying in bed receiving hemodialysis, breathing is somewhat easier, heart rate remains elevated. Had an episode of chest discomfort and received Dilaudid which relieved his pain. Pain was located on the right side of the chest and reproducible with palpation. Remains on 5 L nasal cannula did not require any BiPAP support overnight. Hemodialysis was successful removing 3 L of fluid yesterday patient is scheduled for another round of hemodialysis today. Lasix drip continues at 10 mg an hour, remains in atrial fibrillation amiodarone drip at 0.5 mg a minute, norepinephrine was on and off throughout the night. Currently at 4 g. Follow-up blood cultures negative for growth. Remains on daptomycin and ciprofloxacin. REVIEW OF SYSTEMS: Done for constitutional ,cardiovascular, GI, pulmonary with relevant findings as above. CURRENT MEDICATIONS Acetaminophen, Shafer, DuoNeb, Casodex 50 g by mouth twice a day, Questran 4 g by mouth twice a day, Cipro 500 mg by mouth every 18 hours, daptomycin 650 mg IV piggyback, Aranesp 40 g subcu every 7 days, Colace, Lasix 250 mg at 10 mL an hour, Dilaudid 0.5 mg IV push every 4 hours, Ativan 1 mg IV every 4 hours when necessary, melatonin 3 mg by mouth at bedtime, Levophed 4 milligrams in 250 mL IV piggyback, Protonix 40 mg by mouth daily, Ultram 50 g by mouth 4 times a day. PHYSICAL EXAM VITAL SIGNS: Temperature 98.2, pulse 135, respiratory rate 30, blood pressure 135/65, oxygen saturation 100% on 6 L. GENERAL APPEARANCE: Lying in bed, tired appearing short of breath. EYES: Pupils equal. Conjunctiva normal. NECK: JVD not raised. Mass not palpable. RESPIRATORY: Respiratory effort increased. Diminished bilaterally basilar crackles. CARDIOVASCULAR: First and second sounds irregular. Moderate edema. ABDOMEN: Soft. Liver and spleen not palpable. No tenderness. No mass palpable. PSYCHIATRY: Alert and oriented x3. Mood and affect somewhat anxious appearing. INVESTIGATIONS: LABS: White blood cell count 20.0, hemoglobin 7.6, sodium 133, potassium 3.1, BUN 32, creatinine 3.90, Accu-Cheks noted. Chest x-ray: Stable diffuse bilateral airspace disease correlate for pulmonary edema versus diffuse pneumonia. ASSESSMENT: -Methicillin-resistant Staphylococcus aeruginosa bacteremia with suspicion for underlying endocarditis, pending transesophageal echocardiogram -Acute urinary tract infection with Pseudomonas, status post antibiotic. -Volume overload, multifactorial. -Anemia, multifactorial, including that of chronic kidney disease and some blood loss. -Metabolic acidosis from acute kidney injury, -Acute kidney injury from acute tubular necrosis, including hypertension. -Chronic kidney disease, prostate leak from nephrosclerosis. -Hypotensive shock. Possibly cardiogenic. The patient is on Levophed. -Persistent atrial fibrillation, uncontrolled on IV amiodarone. -Metastatic prostate cancer with involvement of the bone including the inferior pubic rami, liver on PET scan, and the rectum causing rectal bleeding. The patient is getting palliative radiation treatment and Casodex. -Acute blood loss anemia from gastrointestinal bleed from metastatic prostate cancer to the rectum, having received 2 units packed red blood cells. -Diabetes mellitus type 2 chronically on insulin. -Hypertension, history of. -Hyperlipidemia. -Acute congestive heart failure from systolic dysfunction ejection fraction 30- 35% could be arrhythmia reduced. -Acute hypoxic respiratory failure status post ventilator support, patient currently on 6 L of oxygen. -Acute renal failure, likely acute tubular necrosis, now requiring hemodialysis. -CODE STATUS: No code PLAN: Received hemodialysis today with 4 L removed. Continues to be on and off the Levophed drip. IV Lasix drip continues, amiodarone drip, antibiotics in the form of ciprofloxacin and daptomycin. Overall prognosis continues to be quite poor particularly with multiple comorbidities and metastatic prostate cancer.. Remains in the ICU for the time being, patient did request to be made a DO NOT RESUSCITATE/DO NOT INTUBATE CODE STATUS. Plan of care discussed with the patient the bedside we will follow closely. QUALITY SYSTEM MANAGER statement: Patient was seen and examined by nurse practitioner Beth Hammond and all elements of the case discussed with attending Dr. Ortiz
[2017-07-13] MEDS ORDERED: INSULIN REGULAR BOLUS (FROM DRIP BAG) IV PRN (16:21)
[2017-07-13] MEDS: AMIODARONE 200 MG TAB PO SCH ×2 (17:07→21:21)
[2017-07-13 17:17] LABS: Glucose,Whole Blood 272 mg/dL (75-99)
[2017-07-13] MEDS: INSULIN REGULAR 100 UNIT in SODIUM CHLORIDE 0.9% 100 ML IV SCH (17:20)
--- NOTE | 2017-07-13 17:58 | P.PN ---
Subjective Progress Note Date: 07/13/17 Principal diagnosis: A. FIB This is a pleasant 81-year-old gentleman who sees Dr. VC Carrion in the office as an outpatient with a past medical history significant for paroxysmal atrial fibrillation as well as prostate cancer who was admitted initially to the fourth floor and was transferred to the intensive care unit because of rectal bleeding. The patient bled significantly from the rectum was bright red blood. 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 He is under the care of Dr. Mcallister at this point. His hemoglobin dropped and the patient received 2 units of packed RBC. The hemoglobin was 7 and increased to 8.6 after the blood transfusion. We initially got involved in the care of the patient because he is in A. fib with heart rate between 100 to 110 beats per minutes. The pressure has been marginally low. Currently the patient is on metoprolol for heart rate control and he was receiving oral anticoagulation but that was stopped. Clinically the patient denies having any chest pain or discomfort or difficulty breathing or heart racing or fluttering feeling at this point. Overall he is weak. The patient was here in May 2017 and at that point he underwent an echocardiogram which revealed normal LV function without significant valvular abnormalities. We signed off on the patient and the patient was then transferred from the intensive care to a non-telemetry unit. Yesterday he went into an acute respiratory distress. He was transferred back to the intensive care unit. An echocardiogram was performed recently and did reveal severe lead impaired LV function with an ejection fraction around 35% with possible anterior mitral leaflet vegetation. We requested to see the patient to perform transesophageal echocardiogram for further clarification. Unfortunately, the patient is in respiratory distress at this point and he is tachypneic. The patient in the current situation, tolerate performing a CHASITY on him. He is in process to be seen by the intensive care unit team and he is possibly need to be intubated. If the patient intubated then it would be safer to perform a CHASITY on him. Anyway he is covered regarding endocarditis at this point. On follow-up with the patient today on 07/13/2017, clinically he seems to be better in terms of the shortness of breath and acute respiratory failure. As a matter fact he does not look in any respiratory distress today. 4 L of fluid were taken during dialysis yesterday. He continues to be in A. fib with uncontrolled heart rate on the amiodarone IV. I will consider adding small dose of metoprolol and hopefully we can wean him from the Levophed. Definitely he is not a candidate to have any anticoagulation in view of the history of rectal bleeding. Objective - Vital Signs Vital signs: Vital Signs Temp 97.9 F 07/13/17 16:00 Pulse 142 H 07/13/17 17:15 Resp 18 07/13/17 17:15 BP 124/55 07/13/17 17:15 Pulse Ox 100 07/13/17 17:15 Intake & Output 07/12/17 07/13/17 07/13/17 18:59 06:59 18:59 Intake Total 1058.264 262.813 1974.856 Output Total 3897 915 4511 Balance -2838.736 -600.778 -2883.144 Weight 114 kg 114 kg Intake: IV 100 120 110 Sodium Chloride 0.9% 1, 100 120 110 000 ml @ 20 mls/hr IV . Q24H [facility] Rx#:[id number] Intake, IV Titration 733.264 94.222 805.856 Amount Amiodarone 450 mg In 225.596 16.972 375.981 Dextrose 5% in Water 250 ml @ 1 MG/MIN 34.53 mls/ hr IV .Q7H31M [facility] Rx#: [id number] Diltiazem 125 mg In 87.667 Sodium Chloride 0.9% 100 ml @ Titrate IV .Q0M [facility] Rx#:[id number] Furosemide 250 mg In 228 250 Sodium Chloride 0.9% 225 ml @ 10 MG/HR 10 mls/hr IVP .Q24H [facility] Rx#: [id number] Norepinephrin 4 mg-0.9% 192.001 77.250 179.875 Ns Pmx 4 mg In 250 ml @ Titrate IV .Q0M [facility] Rx#: [id number] Oral 225 100 475 Tube Feeding 237 Output: Urine 496 915 510 Stool 1 1 Other 3400 4000 Other: Voiding Method Indwelling Catheter Indwelling Catheter Indwelling Catheter - Constitutional General appearance: Present: no acute distress - Respiratory Respiratory: bilateral: diminished - Cardiovascular Rhythm: irregularly irregular Heart sounds: normal: S1, S2 - Labs CBC & Chem 7: 07/13/17 04:58 07/13/17 15:44 Labs: Abnormal Lab Results - Last 24 Hours (Table) 07/12/17 07/13/17 07/13/17 Range/Units 20:12 04:58 04:58 WBC 20.0 H (3.8-10.6) k/uL RBC 2.88 L (4.30-5.90) m/uL Hgb 7.6 L (13.0-17.5) gm/dL Hct 25.4 L (39.0-53.0) % MCHC 30.1 L (31.0-37.0) g/dL RDW 17.2 H (11.5-15.5) % Neutrophils # 18.4 H (1.3-7.7) k/uL Lymphocytes # 0.9 L (1.0-4.8) k/uL Sodium 133 L (137-145) mmol/L Potassium 3.1 L (3.5-5.1) mmol/L Carbon Dioxide 18 L (22-30) mmol/L BUN 32 H (9-20) mg/dL Creatinine 3.90 H (0.66-1.25) mg/dL Glucose 252 H (74-99) mg/dL POC Glucose (mg/dL) 357 H (75-99) mg/dL Calcium 8.1 L (8.4-10.2) mg/dL 07/13/17 07/13/17 Range/Units 12:09 17:15 WBC (3.8-10.6) k/uL RBC (4.30-5.90) m/uL Hgb (13.0-17.5) gm/dL Hct (39.0-53.0) % MCHC (31.0-37.0) g/dL RDW (11.5-15.5) % Neutrophils # (1.3-7.7) k/uL Lymphocytes # (1.0-4.8) k/uL Sodium (137-145) mmol/L Potassium (3.5-5.1) mmol/L Carbon Dioxide (22-30) mmol/L BUN (9-20) mg/dL Creatinine (0.66-1.25) mg/dL Glucose (74-99) mg/dL POC Glucose (mg/dL) 382 H 272 H (75-99) mg/dL Calcium (8.4-10.2) mg/dL Microbiology - Last 24 Hours (Table) 07/08/17 12:57 Blood Culture - Preliminary Blood No Growth after 120 hours 07/08/17 12:40 Blood Culture - Preliminary Blood No Growth after 120 hours Assessment and Plan Assessment: Assessment #1 A. fib with RVR #2 prostate cancer #3 paroxysmal atrial fibrillation #4 generalized fatigue and tiredness #5 multiple comorbid conditions #6 acute respiratory distress #7 multiple comorbid conditions Plan #1 continue the amiodarone are on and I will switch him to amiodarone by mouth and add metoprolol #2 the right wean the patient from the Levophed #3 he is not a candidate for anticoagulation #4 follow-up with the patient.
[2017-07-13 18:02] LABS: Glucose,Whole Blood 275 mg/dL (75-99)
--- NOTE | 2017-07-13 18:31 | PN ---
PROGRESS NOTE The patient is seen for followup for acute kidney injury on top of chronic kidney disease. He is currently end-stage renal disease and has been started on dialysis. The patient has been requiring dialysis on a daily basis mainly for fluid overload. He had about 4 L of ultrafiltration this morning. Currently patient is off of BiPAP. He is awake. He is not in any acute distress. Blood pressure 105/50, heart rate has been about 120 beats per minute. Patient is afebrile. Examination of the heart S1, S2. Examination lungs bilateral breath sounds are heard. Basal crackles heard bilaterally. Abdomen is soft, distended. Examination of the lower extremities shows edema, 2+ bilaterally with chronic skin changes. LAB: Show hemoglobin 7.6, white cell count 20.0. Sodium 133, creatinine 3.9, calcium 8.1. ASSESSMENT: 1. End-stage renal disease on hemodialysis, currently. The patient is being dialyzed on a daily basis mainly for fluid overload. 2. Fluid overload, maintained on Lasix drip. The patient has been putting out a fair amount of urine. We will continue with the Lasix drip for now and we will continue with daily dialysis. Today, the patient had 4 L of fluid removed. 3. Anemia with GI bleed on initial admission. No active bleeding noted at this time. 4. Hypokalemia status post replacement. We will repeat potassium this evening. 5. Invasive prostatic cancer. PLAN: Repeat dialysis in a.m. Replace potassium aggressively and if hemoglobin drops further, the patient should be transfused packed RBCs. MMODL / IJN: [id number] /
[2017-07-13 19:02] LABS: Glucose,Whole Blood 228 mg/dL (75-99)
[2017-07-13] MEDS: NOREPINEPHRIN 4 MG-0.9% NS PMX 4 MG/250 ML ML IV SCH (19:56)
[2017-07-13] MEDS: METOPROLOL TARTRATE 12.5 MG TAB PO SCH (20:01)
[2017-07-13 20:05] LABS: Glucose,Whole Blood 215 mg/dL (75-99)
[2017-07-13 21:17] LABS: Glucose,Whole Blood 216 mg/dL (75-99)
[2017-07-13 22:11] LABS: Glucose,Whole Blood 230 mg/dL (75-99)
[2017-07-13 22:55] LABS: Glucose,Whole Blood 210 mg/dL (75-99)
[2017-07-13] MEDS: PIPERACILLIN-TAZOBACTAM 3.375 GM in DEXTROSE/WATER 1 50ML.BAG IVPB SCH (23:03)
[2017-07-13 23:59] LABS: Glucose,Whole Blood 180 mg/dL (75-99)
[2017-07-14 01:01] LABS: Glucose,Whole Blood 186 mg/dL (75-99)
[2017-07-14 02:24] LABS: Glucose,Whole Blood 152 mg/dL (75-99)
[2017-07-14] MEDS: HYDROmorphone 2 MG/ML 1 ML SYRINGE IVP PRN ×3 (02:31→21:41)
[2017-07-14 03:31] LABS: Glucose,Whole Blood 132 mg/dL (75-99)
[2017-07-14 04:08] LABS: Glucose,Whole Blood 156 mg/dL (75-99)
[2017-07-14 04:42] LABS: Anisocytosis Slight; Basophils # (A) 0.1 k/uL (0-0.2); Basophils % (A) 0 %; Eosinophils # (A) 1.1 k/uL (0-0.7); Eosinophils % (A) 5 %; HCT 28.1 % (39.0-53.0); HGB 8.2 gm/dL (13.0-17.5); Hypochromasia Marked; Lymphocytes # (A) 1.1 k/uL (1.0-4.8); Lymphocytes % (A) 5 %; MCH 25.7 pg (25.0-35.0); MCHC 29.1 g/dL (31.0-37.0); MCV 88.5 fL (80.0-100.0); Mean Platelet Volume 7.2; Monocytes # (A) 0.7 k/uL (0-1.0); Monocytes % (A) 3 %; Neutrophils # (A) 19.2 k/uL (1.3-7.7); Neutrophils % (A) 86 %; Platelet Count 244 k/uL (150-450); Poikilocytosis Slight; RBC 3.18 m/uL (4.30-5.90); RDW 16.8 % (11.5-15.5); WBC 22.4 k/uL (3.8-10.6)
[2017-07-14 04:52] LABS: Calcium 8.3 mg/dL (8.4-10.2); Potassium 4.6 mmol/L (3.5-5.1)
[2017-07-14 05:04] LABS: Glucose,Whole Blood 202 mg/dL (75-99)
[2017-07-14 06:05] LABS: Glucose,Whole Blood 170 mg/dL (75-99)
[2017-07-14] MEDS ORDERED: MIDODRINE 5 MG TAB PO ONE (06:15)
[2017-07-14] MEDS: AMIODARONE 200 MG TAB PO SCH ×3 (07:01→21:52)
[2017-07-14] MEDS: NOREPINEPHRIN 4 MG-0.9% NS PMX 4 MG/250 ML ML IV SCH ×2 (07:04→20:02)
--- NOTE | 2017-07-14 07:28 | PN ---
PROGRESS NOTE DATE OF SERVICE: 07/13/2017 REASON FOR FOLLOWUP: 1. 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 2. Pseudomonas urinary tract infection. 3. Elevated white count. INTERVAL HISTORY: The patient is afebrile. He is hemodynamically stable. Not on pressor support. Did have dialysis with removal of about 3 L of fluid. The patient's diarrhea has improved. Denies any chest pain. Occasional cough. EXAMINATION: Blood pressure 124/79 with a pulse of 143, temperature of 98. He is 100% on 2 L nasal cannula. General description is a elderly male lying in bed in no distress. RESPIRATORY SYSTEM: Unlabored breathing with decreased breath sounds in the bases. No wheeze. HEART: S1, S2. Irregular rhythm. ABDOMEN: Soft, no tenderness. EXTREMITIES: Some trace edema of feet. LABS: Hemoglobin 7.6, white count of 20,000, BUN of 32, creatinine 3.90. DIAGNOSTIC IMPRESSION AND PLAN: 1. Patient with MRSA bacteremia with possible mitral wall endocarditis. The patient is currently on daptomycin because of his renal insufficiency. 2. Patient with persistent elevated white count with a question of possible pneumonia gram-negative. Zosyn will be added and will try to obtain a sputum. 3. Continue supportive care. MMODL / IJN: [id number] /
[2017-07-14] MEDS: METOPROLOL TARTRATE 12.5 MG TAB PO SCH (07:47)
[2017-07-14 07:58] LABS: Glucose,Whole Blood 174 mg/dL (75-99)
[2017-07-14] MEDS: IPRATROPIUM-ALBUTEROL 3 ML NEB INHALATION SCH ×4 (08:15→19:50)
[2017-07-14 09:19] LABS: Glucose,Whole Blood 160 mg/dL (75-99)
--- NOTE | 2017-07-14 10:00 | P.PN ---
Subjective Patient is seen in follow-up for acute kidney injury on chronic kidney disease. He is currently receiving daily dialysis mostly for fluid overload. He remains nonoliguric on Lasix drip. He is currently awake and alert. Oral intake is poor. Denies vomiting. He did have loose stools yesterday but none today. He completed dialysis this morning for 3.5 L ultrafiltration. Vital signs are stable. General: The patient appeared well nourished and normally developed. HEENT: Head exam is unremarkable. Neck is without jugular venous distension. LUNGS: Lungs are clear to auscultation and percussion. Breath sounds decreased. HEART: Rate and Rhythm are regular. First and second heart sounds normal. No murmurs, rubs or gallops. ABDOMEN: Abdominal exam reveals normal bowel sounds. Non-tender and non- distended. No evidence of peritonitis. EXTREMITITES: 2+ edema. Objective - Vital Signs Vital signs: Vital Signs Temp 98.3 F 07/14/17 08:00 Pulse 148 H 07/14/17 08:30 Resp 18 07/14/17 08:30 BP 93/72 07/14/17 08:30 Pulse Ox 96 07/14/17 08:30 Intake & Output 07/13/17 07/14/17 07/14/17 18:59 06:59 18:59 Intake Total 1656.043 821.906 205.000 Output Total 4546 821 100 Balance -2889.957 0.906 105.000 Weight 114 kg 111 kg Intake: IV 120 120 40 Furosemide 250 mg In 20 Sodium Chloride 0.9% 225 ml @ 10 MG/HR 10 mls/hr IVP .Q24H [facility] Rx#: [id number] Sodium Chloride 0.9% 1, 120 120 20 000 ml @ 20 mls/hr IV . Q24H [facility] Rx#:[id number] Intake, IV Titration 824.043 161.906 165.000 Amount Amiodarone 450 mg In 375.981 Dextrose 5% in Water 250 ml @ 1 MG/MIN 34.53 mls/ hr IV .Q7H31M [facility] Rx#: [id number] Furosemide 250 mg In 250 Sodium Chloride 0.9% 225 ml @ 10 MG/HR 10 mls/hr IVP .Q24H [facility] Rx#: [id number] Insulin Regular 100 unit 72.906 In Sodium Chloride 0.9% 100 ml @ Per Protocol IV .Q0M [facility] Rx#:[id number] Norepinephrin 4 mg-0.9% 198.062 89.00 165.000 Ns Pmx 4 mg In 250 ml @ Titrate IV .Q0M [facility] Rx#: [id number] Oral 475 540 Tube Feeding 237 Output: Urine 545 820 100 Stool 1 1 Other 4000 Other: Voiding Method Indwelling Catheter Indwelling Catheter # Bowel Movements 1 - Labs CBC & Chem 7: 07/14/17 04:29 07/14/17 04:29 Labs: Abnormal Lab Results - Last 24 Hours (Table) 07/13/17 07/13/17 07/13/17 Range/Units 12:09 17:15 18:00 WBC (3.8-10.6) k/uL RBC (4.30-5.90) m/uL Hgb (13.0-17.5) gm/dL Hct (39.0-53.0) % MCHC (31.0-37.0) g/dL RDW (11.5-15.5) % Neutrophils # (1.3-7.7) k/uL Eosinophils # (0-0.7) k/uL Sodium (137-145) mmol/L Carbon Dioxide (22-30) mmol/L BUN (9-20) mg/dL Creatinine (0.66-1.25) mg/dL Glucose (74-99) mg/dL POC Glucose (mg/dL) 382 H 272 H 275 H (75-99) mg/dL Calcium (8.4-10.2) mg/dL 07/13/17 07/13/17 07/13/17 Range/Units 19:01 20:04 21:15 WBC (3.8-10.6) k/uL RBC (4.30-5.90) m/uL Hgb (13.0-17.5) gm/dL Hct (39.0-53.0) % MCHC (31.0-37.0) g/dL RDW (11.5-15.5) % Neutrophils # (1.3-7.7) k/uL Eosinophils # (0-0.7) k/uL Sodium (137-145) mmol/L Carbon Dioxide (22-30) mmol/L BUN (9-20) mg/dL Creatinine (0.66-1.25) mg/dL Glucose (74-99) mg/dL POC Glucose (mg/dL) 228 H 215 H 216 H (75-99) mg/dL Calcium (8.4-10.2) mg/dL 07/13/17 07/13/17 07/13/17 Range/Units 22:09 22:53 23:57 WBC (3.8-10.6) k/uL RBC (4.30-5.90) m/uL Hgb (13.0-17.5) gm/dL Hct (39.0-53.0) % MCHC (31.0-37.0) g/dL RDW (11.5-15.5) % Neutrophils # (1.3-7.7) k/uL Eosinophils # (0-0.7) k/uL Sodium (137-145) mmol/L Carbon Dioxide (22-30) mmol/L BUN (9-20) mg/dL Creatinine (0.66-1.25) mg/dL Glucose (74-99) mg/dL POC Glucose (mg/dL) 230 H 210 H 180 H (75-99) mg/dL Calcium (8.4-10.2) mg/dL 07/14/17 07/14/17 07/14/17 Range/Units 00:59 02:16 03:10 WBC (3.8-10.6) k/uL RBC (4.30-5.90) m/uL Hgb (13.0-17.5) gm/dL Hct (39.0-53.0) % MCHC (31.0-37.0) g/dL RDW (11.5-15.5) % Neutrophils # (1.3-7.7) k/uL Eosinophils # (0-0.7) k/uL Sodium (137-145) mmol/L Carbon Dioxide (22-30) mmol/L BUN (9-20) mg/dL Creatinine (0.66-1.25) mg/dL Glucose (74-99) mg/dL POC Glucose (mg/dL) 186 H 152 H 132 H (75-99) mg/dL Calcium (8.4-10.2) mg/dL 01/12/2407/14/17 07/14/17 Range/Units 04:06 04:29 04:29 WBC 22.4 H (3.8-10.6) k/uL RBC 3.18 L (4.30-5.90) m/uL Hgb 8.2 L (13.0-17.5) gm/dL Hct 28.1 L (39.0-53.0) % MCHC 29.1 L (31.0-37.0) g/dL RDW 16.8 H (11.5-15.5) % Neutrophils # 19.2 H (1.3-7.7) k/uL Eosinophils # 1.1 H (0-0.7) k/uL Sodium 135 L (137-145) mmol/L Carbon Dioxide 21 L (22-30) mmol/L BUN 31 H (9-20) mg/dL Creatinine 3.44 H (0.66-1.25) mg/dL Glucose 185 H (74-99) mg/dL POC Glucose (mg/dL) 156 H (75-99) mg/dL Calcium 8.3 L (8.4-10.2) mg/dL 07/14/17 07/14/17 07/14/17 Range/Units 05:02 06:04 07:56 WBC (3.8-10.6) k/uL RBC (4.30-5.90) m/uL Hgb (13.0-17.5) gm/dL Hct (39.0-53.0) % MCHC (31.0-37.0) g/dL RDW (11.5-15.5) % Neutrophils # (1.3-7.7) k/uL Eosinophils # (0-0.7) k/uL Sodium (137-145) mmol/L Carbon Dioxide (22-30) mmol/L BUN (9-20) mg/dL Creatinine (0.66-1.25) mg/dL Glucose (74-99) mg/dL POC Glucose (mg/dL) 202 H 170 H 174 H (75-99) mg/dL Calcium (8.4-10.2) mg/dL 07/14/17 Range/Units 09:18 WBC (3.8-10.6) k/uL RBC (4.30-5.90) m/uL Hgb (13.0-17.5) gm/dL Hct (39.0-53.0) % MCHC (31.0-37.0) g/dL RDW (11.5-15.5) % Neutrophils # (1.3-7.7) k/uL Eosinophils # (0-0.7) k/uL Sodium (137-145) mmol/L Carbon Dioxide (22-30) mmol/L BUN (9-20) mg/dL Creatinine (0.66-1.25) mg/dL Glucose (74-99) mg/dL POC Glucose (mg/dL) 160 H (75-99) mg/dL Calcium (8.4-10.2) mg/dL Microbiology - Last 24 Hours (Table) 07/08/17 12:57 Blood Culture - Preliminary Blood No Growth after 120 hours 07/08/17 12:40 Blood Culture - Preliminary Blood No Growth after 120 hours Assessment and Plan Plan: Assessment: #1. Acute kidney injury on chronic kidney disease now hemodialysis dependent. 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 He had dialysis this morning with 3-1/2 L ultrafiltration. #2. Volume overload. #3. Anemia of chronic kidney disease maintained on Aranesp. #4. Metabolic acidosis secondary to acute kidney injury. Improved with dialysis. #5. MRSA bacteremia with question of endocarditis. CHASITY pending. Maintained on antibiotics per infectious disease recommendations. #6. Hypotension currently requiring 7 mics of levofed. #7. 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 Plan: Next hemodialysis Sunday. Maintain Lasix drip at 10 mL per hour. Midodrine 10 mg prior to dialysis. Wean vasopressors. Monitor bicarb. May need to add oral supplementation. Prognosis guarded.
[2017-07-14] MEDS: PIPERACILLIN-TAZOBACTAM 3.375 GM in DEXTROSE/WATER 1 50ML.BAG IVPB SCH ×2 (10:07→20:08)
[2017-07-14] MEDS: CHOLESTYRAMINE (WITH SUGAR) 4 GM PACKET PO SCH ×2 (10:07→17:45)
[2017-07-14] MEDS: PANTOPRAZOLE 40 MG TABLET PO SCH (10:07)
[2017-07-14 10:08] LABS: Glucose,Whole Blood 141 mg/dL (75-99)
[2017-07-14] MEDS: BICALUTAMIDE 50 MG TAB PO SCH ×2 (10:14→20:08)
[2017-07-14] MEDS ORDERED: METOPROLOL TARTRATE 12.5 MG TAB PO ONE (10:15)
--- NOTE | 2017-07-14 10:23 | PN ---
PROGRESS NOTE Mr. Leslie is an 81-year-old male with a history of prostate cancer, metastatic, atrial fibrillation who presented with bleeding. He has received dialysis today. He continues to be in atrial fibrillation with rapid ventricular response. His echocardiogram revealed a severely impaired left ventricular systolic function. There was a question of mass on the anterior mitral valve leaflets. He is feeling reasonably well at this time. His breathing is stable. He continues to be fatigued and tired. He denies any chest pain. He denies any dizziness or palpitation. He is not aware of the arrhythmia. His breathing status has been relatively stable. Hemodynamically, he continues to be on norepinephrine. He is on oral amiodarone 400 mg 3 times a day and Lopressor 12 .5 mg twice a day. PHYSICAL EXAMINATION: Blood pressure 119/59 with a heart rate in the 120s. LUNGS: Clear anteriorly. HEART: Irregularly irregular. Tachycardiac S1, S2. No S3. No rub. ABDOMEN: Soft, obese, nontender. Extremities +2 edema bilaterally. LAB DATA: Lab data revealed a BUN and creatinine 31 and 3.44, potassium 4.6, hemoglobin of 8.2. IMPRESSION: 1. Metastatic prostate cancer with liver and bone mass noted. 2. Atrial fibrillation, chronic. 3. Cardiomyopathy. 4. Renal failure. RECOMMENDATION: From the cardiac standpoint, he is not a candidate for anticoagulation. I will increase the dose of his beta trinity to 12.5 to 25 mg twice a day. Continues his medical regimen. Hopefully we can wean his IV norepinephrine to off. Continue his medical regimen. The long-term prognosis should be discussed with him by the oncology service to further guide the treatment and dictate how aggressive we need to be. Unfortunately, it appears in view of the overall status, the prognosis is quite guarded. MMODL / IJN: [id number] /
--- NOTE | 2017-07-14 10:28 | P.PN ---
Subjective Progress Note Date: 07/14/17 This is a pleasant 81-year-old gentleman who resides at an extended care facility who has a history of coronary artery disease, paroxysmal atrial fibrillation, diabetes mellitus, hyperlipidemia, hypertension, shingles, MRSA infection in the blood and urine. 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 A recent PET scan revealed large hypermetabolic lesion presumed right-sided prostatic carcinoma there is also evidence of extra Chiller extension into the rectum and into the right pelvis causing osseous destruction of medial right MP a pelvic ramus near pubic symphysis. There is metastatic lesion to the liver as well. Patient was readmitted yesterday with fever and generalized weakness. Gentleman admitted to the regular medical floor with suspected urinary tract infection and sepsis. Last evening he developed bright red bleeding from the rectum approximately 50 MLS. He did have a drop in his systolic blood pressure into the 70s and 80s. His hemoglobin was 7.0. He was transferred here to the intensive care unit. He did not require any pressors. Did receive 2 units of packed red blood cells in his current hemoglobin is 8.6. White count 11.7. Creatinine 3.10. AST 158, ALT 106 Blood cultures are revealing presumptive MRSA. His chest x-ray shows mild fluid volume overload with small effusions. He is maintaining O2 saturations in the upper 90s on 2 L/m per nasal cannula. On 07/10/2017 patient is seen in follow-up on medical surgical floor. He developed an acute episode of respiratory distress, severe orthopnea, and acute dyspnea. His lab work today was reviewed, there is no evidence of leukocytosis , WBC is 7.7, hemoglobin is 8.1, his sodium is 133, his carbon dioxide was 18, his BUN is 55, and creatinine is 5.40. Nephrology has discussed initiation of hemodialysis with him today, patient is in agreement. His oxygenation requirements have increased, this morning he was on 2 L per nasal cannula with O2 sat at 97%, through the day and has deteriorated, and patient is not requiring 5-6 L per nasal cannula with O2 sat at 92-93%. Lung sounds are positive for coarse rales throughout the lung doan bilaterally. He remains afebrile. No other episodes of rectal bleeding was observed. Patient was actually due to start radiation therapy for his prostate cancer today, however in view of his worsening respiratory status, was put on hold. Stat chest x-ray was obtained, and shows worsening decompensated congestive heart failure and confluent pulmonary edema. 80 mg of Lasix IV was given, with no response, patient only made 10 mL of urine. Patient has been progressively more oliguric over the last few days. Has been complaining of worsening appetite and weakness. Dr. Escobedo was consulted for placement of hemodialysis catheter, patient is unable to lay down flat, patient may have to go on the BiPAP support and hemodialysis catheter may have to be placed in the femoral area. We will transfer the patient to the intensive care, and request Dr. Escobedo to place a hemodialysis catheter STEPHEN and initiate hemodialysis as soon as possible. On 07/11/2017 patient remains in the intensive care BiPAP support with pressures 12.5 and FiO2 40%. He had hemodialysis last night would removal of 3 L of fluid, he is scheduled for hemodialysis again today. Is moderately short of breath, lung sounds are positive for coarse rhonchi, rales. And to produce some urine, 10-20 mL per hour. Chest x-ray from 07/11/2017 has been reviewed and shows airspace disease consistent with CHF and pulmonary edema. Support was reviewed, WBCs are up to 14, hemoglobin is 9, serum sodium is 134, serum potassium is 4.1, B1 is 46, creatinine is 5.2, with CO2 of 17. Bilateral lower extremities positive for 1+ pitting edema. Patient was given 80 mg of Lasix with modest response, about 125 mL in the first hour after administration. Continues on ciprofloxacin for Pseudomonas in the urine, daptomycin for the positive blood cultures with MRSA. On 07/12/2017 patient is seen again in the intensive care. Wore the BiPAP mask intermittently last night, this morning he is on 6 L of oxygen, per high flow nasal cannula. Denies worsening dyspnea at rest, still using accessory abdominal muscles. Lung sounds are much improved from yesterday's exam, positive for a few scattered expiratory wheezes over posterior lower basis, but no rhonchi no rales auscultated. Last night patient went into atrial fibrillation with rapid ventricular rate with a rate of 1:30 to 140 BPM. Patient was started on Cardizem drip at 10 mg/hour. He had 2 L removed during hemodialysis yesterday evening, her symptoms. He was started on Lasix drip at 10 mg/hr per nephrology. His urine output has improved, averaging 60-100 mL per hour. Overall his net fluid balance is -2800 mL in the last 24 hours. He is currently having another hemodialysis treatment, with a target removal of 3 L today. Patient is hypotensive with systolic in the 70s and 80s, still tachycardic with a rate of 120-120 BPM. May have to restart vasopressor support with levophed. Chest x-ray from December 30 was reviewed and shows diffuse wheezes bilaterally, pulmonary edema versus diffuse pneumonia. Cultures are negative, patient has MRSA bacteremia, concern for possible endocarditis. Currently, covered with daptomycin. Cardiology is unable to proceed with CHASITY the view of patient's respiratory status. Continue oral Cipro for pseudomonal unit tract infection. Overall the patient states his breathing is easier today. The patient is seen again today 07/13/2017 in follow-up in the intensive care unit. He is awake and alert in no acute distress. He did have an episode of chest discomfort. EKG revealed no significant changes. He was given Dilaudid which his pain was relieved. The pain was somewhat atypical it was on the right side and reproducible with palpation. He is down to 5 L/m per nasal cannula to maintain O2 saturations in the 90s. He did not require BiPAP support last night. He had over 3 L removed yesterday via dialysis and another 4 L this morning. His chest x-ray continues to show bilateral infiltrates more so on the right upper lung. He is continued on a Lasix drip at 10 mg per hour. He remains in atrial fibrillation. He remains on amiodarone drip at 0.5 mg/ m. He was off the norepinephrine throughout the night. It was resumed early this morning during dialysis at 6 mcg/m. Currently down to 4 g. Follow-up blood cultures reveal no growth. Initial blood cultures were positive for MRSA. Urine was positive for Pseudomonas. He remains on daptomycin and Ciprofloxacillin. White count 20.0. Hemoglobin 7.6. Creatinine 3.90. His appetite is poor. He is drinking Ensure. On 07/14/2017 and seeing this patient for a follow-up. The patient is awake and alert. Currently is on 3 L of oxygen by nasal cannula. Chest x-ray still showing upper lobe consolidation bilaterally. The patient has some limited leukocytosis. The patient has no fever. The patient remains on daptomycin regarding previous MRSA septicemia. The patient underwent hemodialysis this morning with ultrafiltration. A total of 3.5 L of fluid was removed on today's ultrafiltration. During the time, the patient became more tachycardic with underlying atrial fibrillation rhythm. His current rate is around 120 irregular. His blood pressure is in the 110s and the patient has a map of above 65. He is currently on norepinephrine infusion at 2 mics. He is producing adequate amount of urine output in the order of more than 50 mL an hour and the patient is on Lasix drip at 10 mg an hour. The renal function is still impaired with a creatinine of 3.4. The patient is tolerating a sure. He is having loose bowel movements. No altered mentation at this point. No other significant events overnight. Objective - Vital Signs Vital signs: Vital Signs Temp 98.3 F 07/14/17 08:00 Pulse 126 H 07/14/17 10:00 Resp 23 07/14/17 10:00 BP 119/59 07/14/17 10:00 Pulse Ox 98 07/14/17 10:00 Intake & Output 07/13/17 07/14/17 07/14/17 18:59 06:59 18:59 Intake Total 1656.043 821.906 320.149 Output Total 4546 821 180 Balance -2889.957 0.906 140.149 Weight 114 kg 111 kg Intake: IV 120 120 80 Furosemide 250 mg In 40 Sodium Chloride 0.9% 225 ml @ 10 MG/HR 10 mls/hr IVP .Q24H [facility] Rx#: [id number] Sodium Chloride 0.9% 1, 120 120 40 000 ml @ 20 mls/hr IV . Q24H [facility] Rx#:[id number] Intake, IV Titration 824.043 161.906 240.149 Amount Amiodarone 450 mg In 375.981 Dextrose 5% in Water 250 ml @ 1 MG/MIN 34.53 mls/ hr IV .Q7H31M [facility] Rx#: [id number] Furosemide 250 mg In 250 Sodium Chloride 0.9% 225 ml @ 10 MG/HR 10 mls/hr IVP .Q24H [facility] Rx#: [id number] Insulin Regular 100 unit 72.906 13.649 In Sodium Chloride 0.9% 100 ml @ Per Protocol IV .Q0M [facility] Rx#:[id number] Norepinephrin 4 mg-0.9% 198.062 89.00 226.500 Ns Pmx 4 mg In 250 ml @ Titrate IV .Q0M [facility] Rx#: [id number] Oral 475 540 Tube Feeding 237 Output: Urine 545 820 180 Stool 1 1 Other 4000 Other: Voiding Method Indwelling Catheter Indwelling Catheter # Bowel Movements 1 - Exam GENERAL EXAM: Alert, fairly comfortable in no apparent distress. HEAD: Normocephalic. EYES: Normal reaction of pupils, equal size. NOSE: Clear with pink turbinates. THROAT: No erythema or exudates. NECK: No masses, no JVD. CHEST: No chest wall deformity. LUNGS: Equal air entry with crackles posterior bases. CVS: S1 and S2 normal with no audible murmur, irregular rhythm. ABDOMEN: No hepatosplenomegaly, normal bowel sounds, no guarding or rigidity. SPINE: No scoliosis or deformity SKIN: No rashes CENTRAL NERVOUS SYSTEM: No focal deficits, tone is normal in all 4 extremities. EXTREMITIES: There isperipheral edema. No clubbing, no cyanosis. Peripheral pulses are intact. - Labs CBC & Chem 7: 07/14/17 04:29 07/14/17 04:29 Labs: Abnormal Lab Results - Last 24 Hours (Table) 07/13/17 07/13/17 07/13/17 Range/Units 12:09 17:15 18:00 WBC (3.8-10.6) k/uL RBC (4.30-5.90) m/uL Hgb (13.0-17.5) gm/dL Hct (39.0-53.0) % MCHC (31.0-37.0) g/dL RDW (11.5-15.5) % Neutrophils # (1.3-7.7) k/uL Eosinophils # (0-0.7) k/uL Sodium (137-145) mmol/L Carbon Dioxide (22-30) mmol/L BUN (9-20) mg/dL Creatinine (0.66-1.25) mg/dL Glucose (74-99) mg/dL POC Glucose (mg/dL) 382 H 272 H 275 H (75-99) mg/dL Calcium (8.4-10.2) mg/dL 07/13/17 07/13/17 07/13/17 Range/Units 19:01 20:04 21:15 WBC (3.8-10.6) k/uL RBC (4.30-5.90) m/uL Hgb (13.0-17.5) gm/dL Hct (39.0-53.0) % MCHC (31.0-37.0) g/dL RDW (11.5-15.5) % Neutrophils # (1.3-7.7) k/uL Eosinophils # (0-0.7) k/uL Sodium (137-145) mmol/L Carbon Dioxide (22-30) mmol/L BUN (9-20) mg/dL Creatinine (0.66-1.25) mg/dL Glucose (74-99) mg/dL POC Glucose (mg/dL) 228 H 215 H 216 H (75-99) mg/dL Calcium (8.4-10.2) mg/dL 07/13/17 07/13/17 07/13/17 Range/Units 22:09 22:53 23:57 WBC (3.8-10.6) k/uL RBC (4.30-5.90) m/uL Hgb (13.0-17.5) gm/dL Hct (39.0-53.0) % MCHC (31.0-37.0) g/dL RDW (11.5-15.5) % Neutrophils # (1.3-7.7) k/uL Eosinophils # (0-0.7) k/uL Sodium (137-145) mmol/L Carbon Dioxide (22-30) mmol/L BUN (9-20) mg/dL Creatinine (0.66-1.25) mg/dL Glucose (74-99) mg/dL POC Glucose (mg/dL) 230 H 210 H 180 H (75-99) mg/dL Calcium (8.4-10.2) mg/dL 07/14/17 07/14/17 07/14/17 Range/Units 00:59 02:16 03:10 WBC (3.8-10.6) k/uL RBC (4.30-5.90) m/uL Hgb (13.0-17.5) gm/dL Hct (39.0-53.0) % MCHC (31.0-37.0) g/dL RDW (11.5-15.5) % Neutrophils # (1.3-7.7) k/uL Eosinophils # (0-0.7) k/uL Sodium (137-145) mmol/L Carbon Dioxide (22-30) mmol/L BUN (9-20) mg/dL Creatinine (0.66-1.25) mg/dL Glucose (74-99) mg/dL POC Glucose (mg/dL) 186 H 152 H 132 H (75-99) mg/dL Calcium (8.4-10.2) mg/dL 07/14/17 07/14/17 07/14/17 Range/Units 04:06 04:29 04:29 WBC 22.4 H (3.8-10.6) k/uL RBC 3.18 L (4.30-5.90) m/uL Hgb 8.2 L (13.0-17.5) gm/dL Hct 28.1 L (39.0-53.0) % MCHC 29.1 L (31.0-37.0) g/dL RDW 16.8 H (11.5-15.5) % Neutrophils # 19.2 H (1.3-7.7) k/uL Eosinophils # 1.1 H (0-0.7) k/uL Sodium 135 L (137-145) mmol/L Carbon Dioxide 21 L (22-30) mmol/L BUN 31 H (9-20) mg/dL Creatinine 3.44 H (0.66-1.25) mg/dL Glucose 185 H (74-99) mg/dL POC Glucose (mg/dL) 156 H (75-99) mg/dL Calcium 8.3 L (8.4-10.2) mg/dL 07/14/17 07/14/17 07/14/17 Range/Units 05:02 06:04 07:56 WBC (3.8-10.6) k/uL RBC (4.30-5.90) m/uL Hgb (13.0-17.5) gm/dL Hct (39.0-53.0) % MCHC (31.0-37.0) g/dL RDW (11.5-15.5) % Neutrophils # (1.3-7.7) k/uL Eosinophils # (0-0.7) k/uL Sodium (137-145) mmol/L Carbon Dioxide (22-30) mmol/L BUN (9-20) mg/dL Creatinine (0.66-1.25) mg/dL Glucose (74-99) mg/dL POC Glucose (mg/dL) 202 H 170 H 174 H (75-99) mg/dL Calcium (8.4-10.2) mg/dL 07/14/17 07/14/17 Range/Units 09:18 10:04 WBC (3.8-10.6) k/uL RBC (4.30-5.90) m/uL Hgb (13.0-17.5) gm/dL Hct (39.0-53.0) % MCHC (31.0-37.0) g/dL RDW (11.5-15.5) % Neutrophils # (1.3-7.7) k/uL Eosinophils # (0-0.7) k/uL Sodium (137-145) mmol/L Carbon Dioxide (22-30) mmol/L BUN (9-20) mg/dL Creatinine (0.66-1.25) mg/dL Glucose (74-99) mg/dL POC Glucose (mg/dL) 160 H 141 H (75-99) mg/dL Calcium (8.4-10.2) mg/dL Microbiology - Last 24 Hours (Table) 07/08/17 12:57 Blood Culture - Preliminary Blood No Growth after 120 hours 07/08/17 12:40 Blood Culture - Preliminary Blood No Growth after 120 hours Assessment and Plan Plan: Impression: #1 metastatic prostate cancer with skeletal and liver involvement. The tumor itself is extended locally to involve the rectal wall and causing mass effect on the rectum. The patient a candidate for systemic chemotherapy. Consideration was given for palliative radiation therapy however this has not been done as the patient became quite ill and he went into acute hypoxic respiratory failure. Note that the PET scan of the whole body showed a Large hypermetabolic lesion of right-sided prostatic carcinoma with evidence of extra capsular extension into the rectum and into the right pelvis causing osseous distraction of medial right inferior pelvic ramus near pubic symphysis. Metastatic lesion to the liver. #2 Acute rectal bleeding secondary to invading prostate mass. Status post 2 units of packed red blood cell infusions. Current hemoglobin 7.6. #3 Sepsis secondary to MRSA bacteremia. There is a concern for infective endocarditis knowing that the possible mitral valve vegetation. 11 square ejection fraction was around 30%. The patient remains on daptomycin. #4 Acute on chronic renal failure, requiring recent daily hemodialysis. Current creatinine 3.90. #5 Elevated liver enzymes with metastatic liver lesion. #5 acute hypoxic history failure with extensive upper lobe consolidation. Initially this was thought to be related to fluid overload secondary to acute pulmonary edema in the setting of an acute kidney injury. Note that the patient improved with hemodialysis however he continued to have abnormalities in the chest x-ray findings mentioned upper lobes bilaterally. There is a concern of a superinfection. There is a concern of an MRSA pneumonia. Daptomycin does not cover staphylococci lung infection and I'm going to discuss this with infectious disease and consider an alternative antibiotic coverage for coverage of staphylococcal pneumonia. The chest x-ray from today still showing upper lobe consolidation. Clinically the patient however is improved is currently down to 3 L of oxygen by nasal cannula. #6 chronic atrial fibrillation with rapid response currently on an amiodarone orally 400 mg 3 times a day. The patient on a candidate for anticoagulation. #7 Coronary artery disease. #8 Diabetes mellitus. Recurrent on insulin drip for blood sugar control at the rate of 1.5 units an hour #9 Hyperlipidemia. #10 Hypertension. #11 congestion heart failure with ejection fraction of 30% and concern for mitral valve vegetation/endocarditis #12 hypotension currently on few mics of levo fed for hemodynamic support him a rule out secondary to underlying septicemia #13 extensive lower extremities edema and signs of fluid overload. The patient is improving in terms of the fluid balance the patient is currently on lisinopril 10 mg an hour. Daily dialysis and ultrafiltration is also being done #14 anemia, multifactorial. He was stable at 8.2 #15 poor baseline performance and functional status and the patient is a [place] resident. Cor status is DNR/DNI #16 history of shingles. Plan Efraín patient for another blood culture. Monitor white cell count. Months of the fever pattern. Wean off pressors if possible. Discussed the case with infectious disease and consider coverage for Local can pneumonia. Chest x-ray has not shown complete clearing of the upper lobe pulmonary infiltrates. Meanwhile, continue monitoring the atrial fibrillation. Wean off pressors. Keep the patient negative fluid balance. Continue Lasix drip. Not a candidate for CHASITY as this may not change treatment plan. Discussed the case with cardiology. Nephritis on the case. Cardiology is on the case. Oncology is on the case. Condition remains critical. Prognosis remains poor baseline above- mentioned comorbidities. Is a critically care evaluation was done more than 30 minutes. Time with Patient: Greater than 30
--- NOTE | 2017-07-14 10:58 | XR ---
EXAMINATION TYPE: XR chest 1V portable DATE OF EXAM: 07/14/2017 HISTORY: shortness of breath. REFERENCE: Previous study dated 07/13/2017. FINDINGS: There is worsening consolidation of both lung apices. The heart is mildly enlarged. There i s blunting of both CP angles. I could not exclude small effusions. IMPRESSION: WORSENING CONSOLIDATION, BOTH LUNG APICES.
[2017-07-14 11:05] LABS: Glucose,Whole Blood 149 mg/dL (75-99)
[2017-07-14 12:03] LABS: Glucose,Whole Blood 151 mg/dL (75-99)
[2017-07-14 13:20] LABS: Glucose,Whole Blood 166 mg/dL (75-99)
[2017-07-14 14:09] LABS: Glucose,Whole Blood 180 mg/dL (75-99)
[2017-07-14 15:01] LABS: Glucose,Whole Blood 222 mg/dL (75-99)
[2017-07-14 16:04] LABS: Glucose,Whole Blood 218 mg/dL (75-99)
[2017-07-14] MEDS: FUROSEMIDE 250 MG in SODIUM CHLORIDE 0.9% 225 ML IVP SCH (16:05)
--- NOTE | 2017-07-14 17:01 | P.PN ---
Progress Note - Text Progress Note Date: 07/14/17 DATE OF SERVICE: 07/14/2017 PRESENTING COMPLAINT: Shortness of breath HISTORY OF PRESENT ILLNESS: 81-year-old male resident of [facility] [place] with multiple medical problems who presented with fever and generalized weakness, admitted to the regular medical floor with a suspected UTI infection and sepsis.Patient developed bright red blood per rectum and his systolic blood pressure dropped into the 70s and 80s. Hemoglobin was 7.0. Transferred to the ICU. Received 2 units of packed red cells. Elevated kidney function requiring placement of a temporary hemodialysis catheter and hemodialysis has been initiated by nephrology. Became increasingly more short of breath requiring BiPAP support. Has received multiple doses of Lasix, continues to be on and off the BiPAP, Cardizem drip initiated to help control heart rate, Lasix drip initiated to help diurese the patient, receives Levophed for blood pressure support. Has MRSA bacteremia concerns for possible endocarditis however patient is unable to lie flat for CHASITY. Has metastatic prostate cancer with involvement of the rectum causing a GI bleed. INTERVAL HISTORY: 07/14/2017: Patient lying in bed, breathing easier. Remains on 3 L nasal cannula, afebrile , antibiotic therapy continues for MRSA septicemia. Hemodialysis done today with 3.5 L removed, patient did become more tachycardic during the procedure. His baseline rate is about 120 beats a minute irregular, blood pressure is in the 110s, Levophed infusion at 2 mics a minute, Lasix drip continues at 10 mg an hour, renal function continues to be impaired. Appetite is poor, does drink his ensure. Last BM today. 07/13/2017: Patient lying in bed receiving hemodialysis, breathing is somewhat easier, heart rate remains elevated. Had an episode of chest discomfort and received Dilaudid which relieved his pain. Pain was located on the right side of the chest and reproducible with palpation. Remains on 5 L nasal cannula did not require any BiPAP support overnight. Hemodialysis was successful removing 3 L of fluid yesterday patient is scheduled for another round of hemodialysis today. Lasix drip continues at 10 mg an hour, remains in atrial fibrillation amiodarone drip at 0.5 mg a minute, norepinephrine was on and off throughout the night. Currently at 4 g. Follow-up blood cultures negative for growth. Remains on daptomycin and ciprofloxacin. REVIEW OF SYSTEMS: Done for constitutional ,cardiovascular, GI, pulmonary with relevant findings as above. CURRENT MEDICATIONS Acetaminophen, [place], DuoNeb, amiodarone 400 mg by mouth 3 times a day, Casodex 50 g by mouth twice a day, Questran 4 g by mouth twice a day, , daptomycin 650 mg IV piggyback, Aranesp 40 g subcu every 7 days, Colace, Lasix 250 mg at 10 mL an hour, Dilaudid 0.5 mg IV push every 4 hours, Ativan 1 mg IV every 4 hours when necessary, melatonin 3 mg by mouth at bedtime, Levophed 4 milligrams in 250 mL IV piggyback, Protonix 40 mg by mouth daily, Ultram 50 g by mouth 4 times a day, MiraLAX. PHYSICAL EXAM VITAL SIGNS: Temperature 98.3, pulse 164, respiratory rate 19, blood pressure 102/56, oxygen saturation 96% on high flow 3 L . GENERAL APPEARANCE: Lying in bed, tired appearing short of breath. EYES: Pupils equal. Conjunctiva normal. NECK: JVD not raised. Mass not palpable. RESPIRATORY: Respiratory effort increased. Diminished bilaterally basilar crackles. CARDIOVASCULAR: First and second sounds irregular. Moderate edema. ABDOMEN: Soft. Liver and spleen not palpable. No tenderness. No mass palpable. PSYCHIATRY: Alert and oriented x3. Mood and affect somewhat anxious appearing. INVESTIGATIONS: LABS: White blood cell count 22.4, hemoglobin 8.2, sodium 135, BUN 31, creatinine 3.44, Accu-Cheks noted. Chest x-ray: Worsening consolidation both lung apices ASSESSMENT: -Methicillin-resistant Staphylococcus aeruginosa bacteremia with suspicion for underlying endocarditis, pending transesophageal echocardiogram -Possible staphylococcal lung infection/MRSA pneumonia secondary to chest x-ray findings to the upper lobe apices -Volume overload, multifactorial, slow to respond -Anemia, multifactorial, including that of chronic kidney disease and some blood loss, stable at 8.2 -Metabolic acidosis from acute kidney injury, -Acute kidney injury from acute tubular necrosis, including hypertension. -Chronic kidney disease, prostate leak from nephrosclerosis. -Hypotensive shock. Possibly cardiogenic. The patient is on and off of Levophed. -Persistent atrial fibrillation, uncontrolled on IV amiodarone. -Metastatic prostate cancer with involvement of the bone including the inferior pubic rami, liver on PET scan, and the rectum causing rectal bleeding. The patient is getting palliative radiation treatment and Casodex. -Acute blood loss anemia from gastrointestinal bleed from metastatic prostate cancer to the rectum, having received 2 units packed red blood cells. -Diabetes mellitus type 2 on insulin drip -Hypertension, history of. -Hyperlipidemia. -Acute congestive heart failure from systolic dysfunction ejection fraction 30- 35% could be arrhythmia reduced, slow to respond -Acute hypoxic respiratory failure status post ventilator support, patient currently on 6 L of oxygen, slow to respond -Acute renal failure, likely acute tubular necrosis, now requiring hemodialysis , slow to respond -Acute urinary tract infection with Pseudomonas, status post antibiotic, resolved -CODE STATUS: No code PLAN: Received hemodialysis today with 3.5 L removed. Midodrine 10 mg added to regimen prior to hemodialysis. Continues to be on and off the Levophed drip. IV Lasix drip continues, amiodarone oral, antibiotics in the form of daptomycin and Zosyn concerns for pneumonia. Overall prognosis continues to be quite poor particularly with multiple comorbidities and metastatic prostate cancer. Remains in the ICU for now. Plan of care discussed with the patient the bedside we will follow closely. [employer] statement: Patient was seen and examined by nurse practitioner Beth Hammond and all elements of the case discussed with attending Dr. Ortiz
[2017-07-14 17:03] LABS: Glucose,Whole Blood 221 mg/dL (75-99)
[2017-07-14 18:03] LABS: Glucose,Whole Blood 235 mg/dL (75-99)
--- NOTE | 2017-07-14 18:35 | PN ---
PROGRESS NOTE DATE OF SERVICE: 07/14/2017. ATTENDING NOTE: Patient was seen and examined by me. I discussed with my nurse practitioner, Ms. Hammond. The patient remains in the ICU on nasal cannula. Had hemodialysis today, 3.5 L was removed. The patient remains on a Lasix drip and Levophed infusion at 2 mcg. Short of breath at rest, barely eating. at the bedside. EXAMINATION: Temperature 99.7, pulse 127, respiration 22, blood pressure 102/46, pulse ox 99% on 3L. GENERAL APPEARANCE: Propped up in bed, very tired-appearing, short of breath at rest. LUNGS: Diminished breath sounds. Some crackles. PSYCH: Able to answer questions. Edema present. White count 22.4. Potassium 4.6, BUN 31, creatinine 3.44. ASSESSMENT: 1. Methicillin-resistant Staphylococcus aureus bacteremia. 2. Hypotensive shock on pressure support. 3. Chronic chronic kidney disease which has progressed to acute renal failure, requiring renal replacement therapy. 4. Metastatic cancer. 5. Atrial fibrillation, control. PLAN: Talked to the patient and . Prognosis remains poor. Patient remains on pressure support. Hemodialysis, metastatic disease, his age, prognosis remains very poor. I did talk to the patient and and did touch upon hospice. The patient does understand that if things , which is likely the course, then hospice may be an appropriate option to go. PRINCESS / OCTAVIO: [id number] /
[2017-07-14 18:59] LABS: Glucose,Whole Blood 211 mg/dL (75-99)
[2017-07-14 19:59] LABS: Glucose,Whole Blood 216 mg/dL (75-99)
[2017-07-14] MEDS: INSULIN REGULAR 100 UNIT in SODIUM CHLORIDE 0.9% 100 ML IV SCH (20:03)
[2017-07-14] MEDS: METOPROLOL TARTRATE 25 MG TAB PO SCH (20:08)
[2017-07-14 20:49] LABS: Glucose,Whole Blood 200 mg/dL (75-99)
[2017-07-14 21:56] LABS: Glucose,Whole Blood 192 mg/dL (75-99)
[2017-07-14 22:50] LABS: Glucose,Whole Blood 169 mg/dL (75-99)
[2017-07-14 23:48] LABS: Glucose,Whole Blood 155 mg/dL (75-99)
[2017-07-15 00:56] LABS: Glucose,Whole Blood 132 mg/dL (75-99)
[2017-07-15] MEDS: HYDROmorphone 2 MG/ML 1 ML SYRINGE IVP PRN ×6 (01:34→23:10)
[2017-07-15 02:02] LABS: Glucose,Whole Blood 132 mg/dL (75-99)
[2017-07-15 03:02] LABS: Glucose,Whole Blood 167 mg/dL (75-99)
[2017-07-15 04:16] LABS: Glucose,Whole Blood 176 mg/dL (75-99)
[2017-07-15 05:01] LABS: Glucose,Whole Blood 178 mg/dL (75-99)
[2017-07-15 05:37] LABS: Anisocytosis Slight; Basophils # (A) 0.1 k/uL (0-0.2); Basophils % (A) 0 %; Eosinophils # (A) 0.9 k/uL (0-0.7); Eosinophils % (A) 4 %; HGB 7.9 gm/dL (13.0-17.5); Hypochromasia Marked; Lymphocytes # (A) 1.3 k/uL (1.0-4.8); Lymphocytes % (A) 6 %; MCHC 29.3 g/dL (31.0-37.0); MCV 88.8 fL (80.0-100.0); Mean Platelet Volume 7.1; Monocytes # (A) 0.8 k/uL (0-1.0); Monocytes % (A) 4 %; Neutrophils # (A) 18.1 k/uL (1.3-7.7); Neutrophils % (A) 85 %; Platelet Count 188 k/uL (150-450); Poikilocytosis Slight; RBC 3.04 m/uL (4.30-5.90); RDW 17.1 % (11.5-15.5); WBC 21.2 k/uL (3.8-10.6)
[2017-07-15 05:56] LABS: Calcium 8.2 mg/dL (8.4-10.2); Potassium 4.3 mmol/L (3.5-5.1)
[2017-07-15 06:06] LABS: Glucose,Whole Blood 189 mg/dL (75-99)
[2017-07-15] MEDS: NOREPINEPHRIN 4 MG-0.9% NS PMX 4 MG/250 ML ML IV SCH ×2 (06:08→21:35)
[2017-07-15 06:55] LABS: Glucose,Whole Blood 195 mg/dL (75-99)
[2017-07-15] MEDS: IPRATROPIUM-ALBUTEROL 3 ML NEB INHALATION SCH ×4 (07:51→20:31)
--- NOTE | 2017-07-15 08:13 | XR ---
EXAMINATION TYPE: XR chest 1V portable DATE OF EXAM: 07/15/2017 HISTORY: shortness of breath . REFERENCE: Previous study dated 07/14/2017. FINDINGS: There is continuing bibasilar airspace disease. This may have worsened slightly from previo us. The heart is enlarged. Pleural spaces are clear. IMPRESSION: 1. WORSENING APICAL AIRSPACE DISEASE BILATERALLY. 2. CARDIOMEGALY.
[2017-07-15 08:21] LABS: Glucose,Whole Blood 197 mg/dL (75-99)
--- NOTE | 2017-07-15 09:00 | PN ---
PROGRESS NOTE DATE OF SERVICE: 07/14/2017. REASON FOR FOLLOWUP: 1. MRSA bacteremia, question of endocarditis. 2. Pneumonia. INTERVAL HISTORY: The patient is afebrile. He is breathing slightly comfortable today. He continued to have a cough and was able to give sputum sample. No chest pain. No abdominal pain. No diarrhea. EXAMINATION: Blood pressure is 112/40 with a pulse of 109. He is 96% 3 L nasal cannula. General description is an elderly male lying in bed in no distress. RESPIRATORY SYSTEM: Unlabored breathing with decreased breath sounds in the bases. HEART: S1, S2. Regular rate and rhythm. ABDOMEN: Soft, no tenderness. LABS: White count 22.4. Blood culture repeat is so far pending. DIAGNOSTIC IMPRESSION AND PLAN: 1. Patient with MRSA bacteremia with repeat blood culture so far negative. Concern for possible mitral valve endocarditis. Waiting for his CHASITY once his respiratory status stabilizes. 2. Patient now with elevated white count and likely component of pneumonia, question of possible gram-negative. Zosyn was added yesterday. Will see response to the same. Sputum has been collected and that will help adjust antibiotic further. Continue supportive care. MMODL / IJN: [id number] /
[2017-07-15] MEDS: BICALUTAMIDE 50 MG TAB PO SCH ×2 (09:02→20:07)
[2017-07-15] MEDS: AMIODARONE 200 MG TAB PO SCH ×3 (09:02→21:35)
[2017-07-15] MEDS: METOPROLOL TARTRATE 25 MG TAB PO SCH ×2 (09:02→20:07)
[2017-07-15] MEDS: PIPERACILLIN-TAZOBACTAM 3.375 GM in DEXTROSE/WATER 1 50ML.BAG IVPB SCH ×2 (09:03→20:07)
[2017-07-15] MEDS: PANTOPRAZOLE 40 MG TABLET PO SCH (09:03)
[2017-07-15] MEDS: INSULIN REGULAR 100 UNIT in SODIUM CHLORIDE 0.9% 100 ML IV SCH (09:05)
[2017-07-15] MEDS: CHOLESTYRAMINE (WITH SUGAR) 4 GM PACKET PO SCH ×2 (09:08→17:21)
[2017-07-15 09:12] LABS: Glucose,Whole Blood 200 mg/dL (75-99)
[2017-07-15] MEDS ORDERED: VANCOMYCIN IV PER PHARMACY 1 EACH MISC MISCELLANE PRN (09:33)
--- NOTE | 2017-07-15 09:43 | P.PN ---
Subjective Patient is seen in follow-up for acute kidney injury on chronic kidney disease. He is currently receiving daily dialysis mostly for fluid overload. He remains nonoliguric on Lasix drip. He is currently awake and alert. Oral intake is poor. Denies vomiting. Denies chest pain. Last dialysis was yesterday with 3.5 L ultrafiltration. Vital signs are stable. General: The patient appeared well nourished and normally developed. HEENT: Head exam is unremarkable. Neck is without jugular venous distension. LUNGS: Lungs are clear to auscultation and percussion. Breath sounds decreased. HEART: Rate and Rhythm are regular. First and second heart sounds normal. No murmurs, rubs or gallops. ABDOMEN: Abdominal exam reveals normal bowel sounds. Non-tender and non- distended. No evidence of peritonitis. EXTREMITITES: 2+ edema. Objective - Vital Signs Vital signs: Vital Signs Temp 98.3 F 07/15/17 08:00 Pulse 126 H 07/15/17 09:00 Resp 20 07/15/17 09:00 BP 121/49 07/15/17 09:00 Pulse Ox 99 07/15/17 09:00 Intake & Output 07/14/17 07/15/17 07/15/17 18:59 06:59 18:59 Intake Total 0876.994 2757.723 194.564 Output Total 430 736 165 Balance 865.177 291.723 29.564 Weight 110.6 kg Intake: IV 240 160 27.5 Furosemide 250 mg In 120 30 Sodium Chloride 0.9% 225 ml @ 10 MG/HR 10 mls/hr IVP .Q24H [facility] Rx#: [id number] Piperacillin-Tazobactam 3 12.5 .375 gm In Dextrose/Water 1 50ml.bag @ 12.5 mls/hr IVPB Q12HR [facility] Rx#: [id number] Sodium Chloride 0.9% 1, 120 130 15 000 ml @ 20 mls/hr IV . Q24H [facility] Rx#:[id number] Intake, IV Titration 655.177 267.723 47.064 Amount Furosemide 250 mg In 245.833 Sodium Chloride 0.9% 225 ml @ 10 MG/HR 10 mls/hr IVP .Q24H [facility] Rx#: [id number] Insulin Regular 100 unit 28.094 41.098 13.064 In Sodium Chloride 0.9% 100 ml @ Per Protocol IV .Q0M [facility] Rx#:[id number] Norepinephrin 4 mg-0.9% 381.250 226.625 34 Ns Pmx 4 mg In 250 ml @ Titrate IV .Q0M [facility] Rx#: [id number] Oral 400 600 120 Output: Urine 430 735 165 Stool 1 Other: Voiding Method Indwelling Catheter Indwelling Catheter Indwelling Catheter # Voids 1 - Labs CBC & Chem 7: 07/15/17 05:11 07/15/17 05:11 Labs: Abnormal Lab Results - Last 24 Hours (Table) 07/14/17 07/14/17 07/14/17 Range/Units 10:04 11:03 12:01 WBC (3.8-10.6) k/uL RBC (4.30-5.90) m/uL Hgb (13.0-17.5) gm/dL Hct (39.0-53.0) % MCHC (31.0-37.0) g/dL RDW (11.5-15.5) % Neutrophils # (1.3-7.7) k/uL Eosinophils # (0-0.7) k/uL Carbon Dioxide (22-30) mmol/L BUN (9-20) mg/dL Creatinine (0.66-1.25) mg/dL Glucose (74-99) mg/dL POC Glucose (mg/dL) 141 H 149 H 151 H (75-99) mg/dL Calcium (8.4-10.2) mg/dL 07/14/17 07/14/17 07/14/17 Range/Units 13:18 14:07 14:59 WBC (3.8-10.6) k/uL RBC (4.30-5.90) m/uL Hgb (13.0-17.5) gm/dL Hct (39.0-53.0) % MCHC (31.0-37.0) g/dL RDW (11.5-15.5) % Neutrophils # (1.3-7.7) k/uL Eosinophils # (0-0.7) k/uL Carbon Dioxide (22-30) mmol/L BUN (9-20) mg/dL Creatinine (0.66-1.25) mg/dL Glucose (74-99) mg/dL POC Glucose (mg/dL) 166 H 180 H 222 H (75-99) mg/dL Calcium (8.4-10.2) mg/dL 07/14/17 07/14/17 07/14/17 Range/Units 16:02 17:01 18:01 WBC (3.8-10.6) k/uL RBC (4.30-5.90) m/uL Hgb (13.0-17.5) gm/dL Hct (39.0-53.0) % MCHC (31.0-37.0) g/dL RDW (11.5-15.5) % Neutrophils # (1.3-7.7) k/uL Eosinophils # (0-0.7) k/uL Carbon Dioxide (22-30) mmol/L BUN (9-20) mg/dL Creatinine (0.66-1.25) mg/dL Glucose (74-99) mg/dL POC Glucose (mg/dL) 218 H 221 H 235 H (75-99) mg/dL Calcium (8.4-10.2) mg/dL 07/14/17 07/14/17 07/14/17 Range/Units 18:57 19:57 20:47 WBC (3.8-10.6) k/uL RBC (4.30-5.90) m/uL Hgb (13.0-17.5) gm/dL Hct (39.0-53.0) % MCHC (31.0-37.0) g/dL RDW (11.5-15.5) % Neutrophils # (1.3-7.7) k/uL Eosinophils # (0-0.7) k/uL Carbon Dioxide (22-30) mmol/L BUN (9-20) mg/dL Creatinine (0.66-1.25) mg/dL Glucose (74-99) mg/dL POC Glucose (mg/dL) 211 H 216 H 200 H (75-99) mg/dL Calcium (8.4-10.2) mg/dL 07/14/17 07/14/17 07/14/17 Range/Units 21:55 22:48 23:46 WBC (3.8-10.6) k/uL RBC (4.30-5.90) m/uL Hgb (13.0-17.5) gm/dL Hct (39.0-53.0) % MCHC (31.0-37.0) g/dL RDW (11.5-15.5) % Neutrophils # (1.3-7.7) k/uL Eosinophils # (0-0.7) k/uL Carbon Dioxide (22-30) mmol/L BUN (9-20) mg/dL Creatinine (0.66-1.25) mg/dL Glucose (74-99) mg/dL POC Glucose (mg/dL) 192 H 169 H 155 H (75-99) mg/dL Calcium (8.4-10.2) mg/dL 07/15/17 07/15/17 07/15/17 Range/Units 00:54 02:00 03:00 WBC (3.8-10.6) k/uL RBC (4.30-5.90) m/uL Hgb (13.0-17.5) gm/dL Hct (39.0-53.0) % MCHC (31.0-37.0) g/dL RDW (11.5-15.5) % Neutrophils # (1.3-7.7) k/uL Eosinophils # (0-0.7) k/uL Carbon Dioxide (22-30) mmol/L BUN (9-20) mg/dL Creatinine (0.66-1.25) mg/dL Glucose (74-99) mg/dL POC Glucose (mg/dL) 132 H 132 H 167 H (75-99) mg/dL Calcium (8.4-10.2) mg/dL 07/15/17 07/15/17 07/15/17 Range/Units 04:14 04:59 05:11 WBC 21.2 H (3.8-10.6) k/uL RBC 3.04 L (4.30-5.90) m/uL Hgb 7.9 L (13.0-17.5) gm/dL Hct 27.0 L (39.0-53.0) % MCHC 29.3 L (31.0-37.0) g/dL RDW 17.1 H (11.5-15.5) % Neutrophils # 18.1 H (1.3-7.7) k/uL Eosinophils # 0.9 H (0-0.7) k/uL Carbon Dioxide (22-30) mmol/L BUN (9-20) mg/dL Creatinine (0.66-1.25) mg/dL Glucose (74-99) mg/dL POC Glucose (mg/dL) 176 H 178 H (75-99) mg/dL Calcium (8.4-10.2) mg/dL 07/15/17 07/15/17 07/15/17 Range/Units 05:11 06:05 06:54 WBC (3.8-10.6) k/uL RBC (4.30-5.90) m/uL Hgb (13.0-17.5) gm/dL Hct (39.0-53.0) % MCHC (31.0-37.0) g/dL RDW (11.5-15.5) % Neutrophils # (1.3-7.7) k/uL Eosinophils # (0-0.7) k/uL Carbon Dioxide 21 L (22-30) mmol/L BUN 38 H (9-20) mg/dL Creatinine 3.60 H (0.66-1.25) mg/dL Glucose 174 H (74-99) mg/dL POC Glucose (mg/dL) 189 H 195 H (75-99) mg/dL Calcium 8.2 L (8.4-10.2) mg/dL 07/15/17 07/15/17 Range/Units 08:20 09:10 WBC (3.8-10.6) k/uL RBC (4.30-5.90) m/uL Hgb (13.0-17.5) gm/dL Hct (39.0-53.0) % MCHC (31.0-37.0) g/dL RDW (11.5-15.5) % Neutrophils # (1.3-7.7) k/uL Eosinophils # (0-0.7) k/uL Carbon Dioxide (22-30) mmol/L BUN (9-20) mg/dL Creatinine (0.66-1.25) mg/dL Glucose (74-99) mg/dL POC Glucose (mg/dL) 197 H 200 H (75-99) mg/dL Calcium (8.4-10.2) mg/dL Microbiology - Last 24 Hours (Table) 07/14/17 08:02 Gram Stain - Preliminary Sputum 07/08/17 12:57 Blood Culture - Final Blood No Growth after 144 hours 07/08/17 12:40 Blood Culture - Final Blood No Growth after 144 hours Assessment and Plan Plan: Assessment: #1. Acute kidney injury on chronic kidney disease now hemodialysis dependent. 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 He had dialysis yesterday morning with 3-1/2 L ultrafiltration. #2. Volume overload. #3. Anemia of chronic kidney disease maintained on Aranesp. #4. Metabolic acidosis secondary to acute kidney injury. Improved with dialysis. #5. MRSA bacteremia with question of endocarditis. CHASITY pending. Maintained on antibiotics per infectious disease recommendations. #6. Hypotension maintained on levofed. #7. 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 Plan: Hold off on hemodialysis today. Will plan for next treatment tomorrow. Maintain Lasix drip at 10 mL per hour. Midodrine 10 mg prior to dialysis. Wean vasopressors. Monitor bicarb. May need to add oral supplementation. Prognosis guarded.
[2017-07-15 09:58] LABS: Glucose,Whole Blood 212 mg/dL (75-99)
[2017-07-15] MEDS ORDERED: VANCOMYCIN 1,750 MG in SODIUM CHLORIDE 0.9% 250 ML IVPB ONE ×2 (10:00→13:00)
--- NOTE | 2017-07-15 10:54 | PN ---
PROGRESS NOTE Mr. Leslie is an 81-year-old male with history of metastatic prostate cancer, atrial fibrillation, renal failure, evidence of pneumonia. He continues to be feeling fatigued. He has dyspnea with some cough. His appetite is stable. He has no nausea. He has no chest pain. He continues to be in atrial fibrillation with episode of rapid ventricular response. He continues to be on amiodarone 400 mg 3 times a day, low-dose norepinephrine, IV Lasix, metoprolol tartrate 25 mg twice a day. PHYSICAL EXAMINATION: Blood pressure 111/40 with a heart rate in the 120s to 130s. LUNGS: With bronchial breathing in the apices bilaterally. HEART: Irregular regular tachycardiac S1, S2. No S3. No rub. ABDOMEN: Soft, nontender. EXTREMITIES: +2 edema bilaterally. LAB DATA: Revealed a hemoglobin of 7.9, white blood cells 21.2, BUN and creatinine 38 and 3.6. IMPRESSION: 1. Atrial fibrillation, not anticoagulated because of bleeding with episode of rapid ventricular response. 2. 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 3. Cardiomyopathy. 4. Renal failure. 5. Pneumonia. RECOMMENDATION: His antibiotics have been adjusted by Dr. Edmonds. We will continue current therapy. Continue supportive care. Unfortunately, the prognosis remains guarded. MMODL / IJN: [id number] /
[2017-07-15 11:19] LABS: Glucose,Whole Blood 153 mg/dL (75-99)
[2017-07-15 12:12] LABS: Glucose,Whole Blood 128 mg/dL (75-99)
[2017-07-15 13:22] LABS: Glucose,Whole Blood 138 mg/dL (75-99)
[2017-07-15 14:21] LABS: Glucose,Whole Blood 165 mg/dL (75-99)
--- NOTE | 2017-07-15 14:48 | P.PN ---
Subjective Progress Note Date: 07/15/17 This is a pleasant 81-year-old gentleman who resides at an extended care facility who has a history of coronary artery disease, paroxysmal atrial fibrillation, diabetes mellitus, hyperlipidemia, hypertension, shingles, MRSA infection in the blood and urine. 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 A recent PET scan revealed large hypermetabolic lesion presumed right-sided prostatic carcinoma there is also evidence of extra Chiller extension into the rectum and into the right pelvis causing osseous destruction of medial right MP a pelvic ramus near pubic symphysis. There is metastatic lesion to the liver as well. Patient was readmitted yesterday with fever and generalized weakness. Gentleman admitted to the regular medical floor with suspected urinary tract infection and sepsis. Last evening he developed bright red bleeding from the rectum approximately 50 MLS. He did have a drop in his systolic blood pressure into the 70s and 80s. His hemoglobin was 7.0. He was transferred here to the intensive care unit. He did not require any pressors. Did receive 2 units of packed red blood cells in his current hemoglobin is 8.6. White count 11.7. Creatinine 3.10. AST 158, ALT 106 Blood cultures are revealing presumptive MRSA. His chest x-ray shows mild fluid volume overload with small effusions. He is maintaining O2 saturations in the upper 90s on 2 L/m per nasal cannula. On 07/10/2017 patient is seen in follow-up on medical surgical floor. He developed an acute episode of respiratory distress, severe orthopnea, and acute dyspnea. His lab work today was reviewed, there is no evidence of leukocytosis , WBC is 7.7, hemoglobin is 8.1, his sodium is 133, his carbon dioxide was 18, his BUN is 55, and creatinine is 5.40. Nephrology has discussed initiation of hemodialysis with him today, patient is in agreement. His oxygenation requirements have increased, this morning he was on 2 L per nasal cannula with O2 sat at 97%, through the day and has deteriorated, and patient is not requiring 5-6 L per nasal cannula with O2 sat at 92-93%. Lung sounds are positive for coarse rales throughout the lung doan bilaterally. He remains afebrile. No other episodes of rectal bleeding was observed. Patient was actually due to start radiation therapy for his prostate cancer today, however in view of his worsening respiratory status, was put on hold. Stat chest x-ray was obtained, and shows worsening decompensated congestive heart failure and confluent pulmonary edema. 80 mg of Lasix IV was given, with no response, patient only made 10 mL of urine. Patient has been progressively more oliguric over the last few days. Has been complaining of worsening appetite and weakness. Dr. Escobedo was consulted for placement of hemodialysis catheter, patient is unable to lay down flat, patient may have to go on the BiPAP support and hemodialysis catheter may have to be placed in the femoral area. We will transfer the patient to the intensive care, and request Dr. Escobedo to place a hemodialysis catheter STEPHEN and initiate hemodialysis as soon as possible. On 07/11/2017 patient remains in the intensive care BiPAP support with pressures 12.5 and FiO2 40%. He had hemodialysis last night would removal of 3 L of fluid, he is scheduled for hemodialysis again today. Is moderately short of breath, lung sounds are positive for coarse rhonchi, rales. And to produce some urine, 10-20 mL per hour. Chest x-ray from 07/11/2017 has been reviewed and shows airspace disease consistent with CHF and pulmonary edema. Support was reviewed, WBCs are up to 14, hemoglobin is 9, serum sodium is 134, serum potassium is 4.1, B1 is 46, creatinine is 5.2, with CO2 of 17. Bilateral lower extremities positive for 1+ pitting edema. Patient was given 80 mg of Lasix with modest response, about 125 mL in the first hour after administration. Continues on ciprofloxacin for Pseudomonas in the urine, daptomycin for the positive blood cultures with MRSA. On 07/12/2017 patient is seen again in the intensive care. Wore the BiPAP mask intermittently last night, this morning he is on 6 L of oxygen, per high flow nasal cannula. Denies worsening dyspnea at rest, still using accessory abdominal muscles. Lung sounds are much improved from yesterday's exam, positive for a few scattered expiratory wheezes over posterior lower basis, but no rhonchi no rales auscultated. Last night patient went into atrial fibrillation with rapid ventricular rate with a rate of 1:30 to 140 BPM. Patient was started on Cardizem drip at 10 mg/hour. He had 2 L removed during hemodialysis yesterday evening, her symptoms. He was started on Lasix drip at 10 mg/hr per nephrology. His urine output has improved, averaging 60-100 mL per hour. Overall his net fluid balance is -2800 mL in the last 24 hours. He is currently having another hemodialysis treatment, with a target removal of 3 L today. Patient is hypotensive with systolic in the 70s and 80s, still tachycardic with a rate of 120-120 BPM. May have to restart vasopressor support with levophed. Chest x-ray from December 30 was reviewed and shows diffuse wheezes bilaterally, pulmonary edema versus diffuse pneumonia. Cultures are negative, patient has MRSA bacteremia, concern for possible endocarditis. Currently, covered with daptomycin. Cardiology is unable to proceed with CHASITY the view of patient's respiratory status. Continue oral Cipro for pseudomonal unit tract infection. Overall the patient states his breathing is easier today. The patient is seen again today 07/13/2017 in follow-up in the intensive care unit. He is awake and alert in no acute distress. He did have an episode of chest discomfort. EKG revealed no significant changes. He was given Dilaudid which his pain was relieved. The pain was somewhat atypical it was on the right side and reproducible with palpation. He is down to 5 L/m per nasal cannula to maintain O2 saturations in the 90s. He did not require BiPAP support last night. He had over 3 L removed yesterday via dialysis and another 4 L this morning. His chest x-ray continues to show bilateral infiltrates more so on the right upper lung. He is continued on a Lasix drip at 10 mg per hour. He remains in atrial fibrillation. He remains on amiodarone drip at 0.5 mg/ m. He was off the norepinephrine throughout the night. It was resumed early this morning during dialysis at 6 mcg/m. Currently down to 4 g. Follow-up blood cultures reveal no growth. Initial blood cultures were positive for MRSA. Urine was positive for Pseudomonas. He remains on daptomycin and Ciprofloxacillin. White count 20.0. Hemoglobin 7.6. Creatinine 3.90. His appetite is poor. He is drinking Ensure. On 07/14/2017 and seeing this patient for a follow-up. The patient is awake and alert. Currently is on 3 L of oxygen by nasal cannula. Chest x-ray still showing upper lobe consolidation bilaterally. The patient has some limited leukocytosis. The patient has no fever. The patient remains on daptomycin regarding previous MRSA septicemia. The patient underwent hemodialysis this morning with ultrafiltration. A total of 3.5 L of fluid was removed on today's ultrafiltration. During the time, the patient became more tachycardic with underlying atrial fibrillation rhythm. His current rate is around 120 irregular. His blood pressure is in the 110s and the patient has a map of above 65. He is currently on norepinephrine infusion at 2 mics. He is producing adequate amount of urine output in the order of more than 50 mL an hour and the patient is on Lasix drip at 10 mg an hour. The renal function is still impaired with a creatinine of 3.4. The patient is tolerating a sure. He is having loose bowel movements. No altered mentation at this point. No other significant events overnight. On 07/15/2017, them seeing this patient for a follow-up. Awake and alert. Chest x-ray still showing extensive consolidation of the upper lobes bilaterally. There is a concern of staphylococcal pneumonia and for that reason the daptomycin was discontinued and the patient was switched to IV vancomycin. The first dose will be given to him today. The patient remains pressor dependent at 5 mics of levo fed. The patient is on amiodarone orally and the patient remains in atrial fibrillation and at times is having rapid ventricular response. The highest heart rate has been between 120 and 1:30. The patient is producing adequate amount of urine output. He is on Lasix drip at 10 mg an hour. Nephrology is on the case. No recommendations for hemodialysis today. Repeat blood cultures of been sent. The patient is awake and alert and communicating. He requested a DNR/DNI CODE STATUS. He is having adequate bowel moments. He has loose soft liquidy BMs. His oral intake is minimal and is mainly relying on a sure shakes. No other significant events over the past 24 hours. He is quite weak and debilitated at this point. Objective - Vital Signs Vital signs: Vital Signs Temp 98.1 F 07/15/17 12:00 Pulse 117 H 07/15/17 12:00 Resp 22 07/15/17 12:00 BP 113/51 07/15/17 12:00 Pulse Ox 100 07/15/17 12:00 Intake & Output 01/06/18 01/07/18 01/07/18 18:59 06:59 18:59 Intake Total 3721.353 0902.723 780.251 Output Total 430 736 315 Balance 865.177 291.723 465.251 Weight 110.6 kg Intake: IV 240 160 80.0 Furosemide 250 mg In 120 30 Sodium Chloride 0.9% 225 ml @ 10 MG/HR 10 mls/hr IVP .Q24H [facility] Rx#: [id number] Piperacillin-Tazobactam 3 12.5 .375 gm In Dextrose/Water 1 50ml.bag @ 12.5 mls/hr IVPB Q12HR [facility] Rx#: [id number] Piperacillin-Tazobactam 3 37.5 .375 gm In Dextrose/Water 1 50ml.bag @ 12.5 mls/hr IVPB Q12HR [facility] Rx#: [id number] Sodium Chloride 0.9% 1, 120 130 30 000 ml @ 20 mls/hr IV . Q24H [facility] Rx#:[id number] Intake, IV Titration 655.177 267.723 106.251 Amount Furosemide 250 mg In 245.833 Sodium Chloride 0.9% 225 ml @ 10 MG/HR 10 mls/hr IVP .Q24H [facility] Rx#: [id number] Insulin Regular 100 unit 28.094 41.098 37.001 In Sodium Chloride 0.9% 100 ml @ Per Protocol IV .Q0M [facility] Rx#:[id number] Norepinephrin 4 mg-0.9% 381.250 226.625 69.25 Ns Pmx 4 mg In 250 ml @ Titrate IV .Q0M [facility] Rx#: [id number] Oral 400 600 594 Output: Urine 430 735 315 Stool 1 Other: Voiding Method Indwelling Catheter Indwelling Catheter Indwelling Catheter # Voids 1 - Exam GENERAL EXAM: Alert, fairly comfortable in no apparent distress. HEAD: Normocephalic. EYES: Normal reaction of pupils, equal size. NOSE: Clear with pink turbinates. THROAT: No erythema or exudates. NECK: No masses, no JVD. CHEST: No chest wall deformity. LUNGS: Equal air entry with crackles posterior bases. CVS: S1 and S2 normal with no audible murmur, irregular rhythm. ABDOMEN: No hepatosplenomegaly, normal bowel sounds, no guarding or rigidity. SPINE: No scoliosis or deformity SKIN: No rashes CENTRAL NERVOUS SYSTEM: No focal deficits, tone is normal in all 4 extremities. EXTREMITIES: There isperipheral edema. No clubbing, no cyanosis. Peripheral pulses are intact. - Labs CBC & Chem 7: 07/15/17 05:11 07/15/17 05:11 Labs: Abnormal Lab Results - Last 24 Hours (Table) 07/14/17 07/14/17 07/14/17 Range/Units 14:59 16:02 17:01 WBC (3.8-10.6) k/uL RBC (4.30-5.90) m/uL Hgb (13.0-17.5) gm/dL Hct (39.0-53.0) % MCHC (31.0-37.0) g/dL RDW (11.5-15.5) % Neutrophils # (1.3-7.7) k/uL Eosinophils # (0-0.7) k/uL Carbon Dioxide (22-30) mmol/L BUN (9-20) mg/dL Creatinine (0.66-1.25) mg/dL Glucose (74-99) mg/dL POC Glucose (mg/dL) 222 H 218 H 221 H (75-99) mg/dL Calcium (8.4-10.2) mg/dL 07/14/17 07/14/17 07/14/17 Range/Units 18:01 18:57 19:57 WBC (3.8-10.6) k/uL RBC (4.30-5.90) m/uL Hgb (13.0-17.5) gm/dL Hct (39.0-53.0) % MCHC (31.0-37.0) g/dL RDW (11.5-15.5) % Neutrophils # (1.3-7.7) k/uL Eosinophils # (0-0.7) k/uL Carbon Dioxide (22-30) mmol/L BUN (9-20) mg/dL Creatinine (0.66-1.25) mg/dL Glucose (74-99) mg/dL POC Glucose (mg/dL) 235 H 211 H 216 H (75-99) mg/dL Calcium (8.4-10.2) mg/dL 07/14/17 07/14/17 07/14/17 Range/Units 20:47 21:55 22:48 WBC (3.8-10.6) k/uL RBC (4.30-5.90) m/uL Hgb (13.0-17.5) gm/dL Hct (39.0-53.0) % MCHC (31.0-37.0) g/dL RDW (11.5-15.5) % Neutrophils # (1.3-7.7) k/uL Eosinophils # (0-0.7) k/uL Carbon Dioxide (22-30) mmol/L BUN (9-20) mg/dL Creatinine (0.66-1.25) mg/dL Glucose (74-99) mg/dL POC Glucose (mg/dL) 200 H 192 H 169 H (75-99) mg/dL Calcium (8.4-10.2) mg/dL 07/14/17 07/15/17 07/15/17 Range/Units 23:46 00:54 02:00 WBC (3.8-10.6) k/uL RBC (4.30-5.90) m/uL Hgb (13.0-17.5) gm/dL Hct (39.0-53.0) % MCHC (31.0-37.0) g/dL RDW (11.5-15.5) % Neutrophils # (1.3-7.7) k/uL Eosinophils # (0-0.7) k/uL Carbon Dioxide (22-30) mmol/L BUN (9-20) mg/dL Creatinine (0.66-1.25) mg/dL Glucose (74-99) mg/dL POC Glucose (mg/dL) 155 H 132 H 132 H (75-99) mg/dL Calcium (8.4-10.2) mg/dL 07/15/17 07/15/17 07/15/17 Range/Units 03:00 04:14 04:59 WBC (3.8-10.6) k/uL RBC (4.30-5.90) m/uL Hgb (13.0-17.5) gm/dL Hct (39.0-53.0) % MCHC (31.0-37.0) g/dL RDW (11.5-15.5) % Neutrophils # (1.3-7.7) k/uL Eosinophils # (0-0.7) k/uL Carbon Dioxide (22-30) mmol/L BUN (9-20) mg/dL Creatinine (0.66-1.25) mg/dL Glucose (74-99) mg/dL POC Glucose (mg/dL) 167 H 176 H 178 H (75-99) mg/dL Calcium (8.4-10.2) mg/dL 07/15/17 07/15/17 07/15/17 Range/Units 05:11 05:11 06:05 WBC 21.2 H (3.8-10.6) k/uL RBC 3.04 L (4.30-5.90) m/uL Hgb 7.9 L (13.0-17.5) gm/dL Hct 27.0 L (39.0-53.0) % MCHC 29.3 L (31.0-37.0) g/dL RDW 17.1 H (11.5-15.5) % Neutrophils # 18.1 H (1.3-7.7) k/uL Eosinophils # 0.9 H (0-0.7) k/uL Carbon Dioxide 21 L (22-30) mmol/L BUN 38 H (9-20) mg/dL Creatinine 3.60 H (0.66-1.25) mg/dL Glucose 174 H (74-99) mg/dL POC Glucose (mg/dL) 189 H (75-99) mg/dL Calcium 8.2 L (8.4-10.2) mg/dL 07/15/17 07/15/17 07/15/17 Range/Units 06:54 08:20 09:10 WBC (3.8-10.6) k/uL RBC (4.30-5.90) m/uL Hgb (13.0-17.5) gm/dL Hct (39.0-53.0) % MCHC (31.0-37.0) g/dL RDW (11.5-15.5) % Neutrophils # (1.3-7.7) k/uL Eosinophils # (0-0.7) k/uL Carbon Dioxide (22-30) mmol/L BUN (9-20) mg/dL Creatinine (0.66-1.25) mg/dL Glucose (74-99) mg/dL POC Glucose (mg/dL) 195 H 197 H 200 H (75-99) mg/dL Calcium (8.4-10.2) mg/dL 07/15/17 07/15/17 07/15/17 Range/Units 09:57 11:17 12:11 WBC (3.8-10.6) k/uL RBC (4.30-5.90) m/uL Hgb (13.0-17.5) gm/dL Hct (39.0-53.0) % MCHC (31.0-37.0) g/dL RDW (11.5-15.5) % Neutrophils # (1.3-7.7) k/uL Eosinophils # (0-0.7) k/uL Carbon Dioxide (22-30) mmol/L BUN (9-20) mg/dL Creatinine (0.66-1.25) mg/dL Glucose (74-99) mg/dL POC Glucose (mg/dL) 212 H 153 H 128 H (75-99) mg/dL Calcium (8.4-10.2) mg/dL 07/15/17 07/15/17 Range/Units 13:19 14:20 WBC (3.8-10.6) k/uL RBC (4.30-5.90) m/uL Hgb (13.0-17.5) gm/dL Hct (39.0-53.0) % MCHC (31.0-37.0) g/dL RDW (11.5-15.5) % Neutrophils # (1.3-7.7) k/uL Eosinophils # (0-0.7) k/uL Carbon Dioxide (22-30) mmol/L BUN (9-20) mg/dL Creatinine (0.66-1.25) mg/dL Glucose (74-99) mg/dL POC Glucose (mg/dL) 138 H 165 H (75-99) mg/dL Calcium (8.4-10.2) mg/dL Microbiology - Last 24 Hours (Table) 07/14/17 10:21 Blood Culture - Preliminary Blood No Growth after 24 hours 07/14/17 10:14 Blood Culture - Preliminary Blood No Growth after 24 hours 07/14/17 08:02 Gram Stain - Preliminary Sputum Sputum Culture - Preliminary Yeast species 07/08/17 12:57 Blood Culture - Final Blood No Growth after 144 hours 07/08/17 12:40 Blood Culture - Final Blood No Growth after 144 hours Assessment and Plan Plan: Impression: #1 metastatic prostate cancer with skeletal and liver involvement. The tumor itself is extended locally to involve the rectal wall and causing mass effect on the rectum. The patient a candidate for systemic chemotherapy. Consideration was given for palliative radiation therapy however this has not been done as the patient became quite ill and he went into acute hypoxic respiratory failure. Note that the PET scan of the whole body showed a Large hypermetabolic lesion of right-sided prostatic carcinoma with evidence of extra capsular extension into the rectum and into the right pelvis causing osseous distraction of medial right inferior pelvic ramus near pubic symphysis. Metastatic lesion to the liver. #2 Acute rectal bleeding secondary to invading prostate mass. Status post 2 units of packed red blood cell infusions. Current hemoglobin 7.9. #3 Sepsis secondary to MRSA bacteremia. There is a concern for infective endocarditis knowing that the possible mitral valve vegetation. 11 square ejection fraction was around 30%. The patient was being treated with daptomycin and this could switch to vancomycin today due to concern of an underlying MRSA pneumonia in addition.. #4 Acute on chronic renal failure, requiring recent daily hemodialysis. Current creatinine 3.6. #5 acute hypoxic history failure with extensive upper lobe consolidation. Patient improved with hemodialysis ultrafiltration. Nevertheless he continues to have leukocytosis and there is extensive consolidation of the upper lobes bilaterally. He is on IV Zosyn. Concern for MRSA pneumonia is there and based on that the patient will be switched to vancomycin. #6 chronic atrial fibrillation with rapid response currently on an amiodarone orally 400 mg 3 times a day. The patient on a candidate for anticoagulation. #7 Coronary artery disease. #8 Diabetes mellitus. Recurrent on insulin drip for blood sugar control at the rate of 1.5 units an hour #9 Hyperlipidemia. #10 Hypertension. #11 congestion heart failure with ejection fraction of 30% and concern for mitral valve vegetation/endocarditis #12 hypotension currently on few mics of levo fed for hemodynamic support him a rule out secondary to underlying septicemia #13 extensive lower extremities edema and signs of fluid overload. The patient is improving in terms of the fluid balance the patient is currently on lisinopril 10 mg an hour. Daily dialysis and ultrafiltration is also being done #14 anemia, multifactorial. He was stable at 7.9 #15 poor baseline performance and functional status and the patient is a detention resident. Cor status is DNR/DNI #16 history of shingles. Plan Switch this patient to vancomycin. Stab daptomycin. Monitor chest x-ray. Repeat blood cultures. We'll monitor the white cell count. Continue Lasix today. No need for dialysis at this point. Treatment of 80 fibrillation per cardiology. Prior to his to wean off pressors and discontinue if possible. Long-term prognosis poor baseline above-mentioned comorbidities pressure with presence of metastatic prostate cancer. We'll continue to follow. Critically care evaluation that was done and more than 30 minutes.
[2017-07-15 15:15] LABS: Glucose,Whole Blood 179 mg/dL (75-99)
[2017-07-15] MEDS: FUROSEMIDE 250 MG in SODIUM CHLORIDE 0.9% 225 ML IVP SCH (16:49)
[2017-07-15 16:52] LABS: Glucose,Whole Blood 162 mg/dL (75-99)
--- NOTE | 2017-07-15 17:10 | P.PN ---
Progress Note - Text Progress Note Date: 07/15/17 DATE OF SERVICE: 07/15/2017 PRESENTING COMPLAINT: Shortness of breath HISTORY OF PRESENT ILLNESS: 81-year-old male resident of [facility] the [place] with multiple medical problems who presented with fever and generalized weakness, admitted to the regular medical floor with a suspected UTI infection and sepsis.Patient developed bright red blood per rectum and his systolic blood pressure dropped into the 70s and 80s. Hemoglobin was 7.0. Transferred to the ICU. Received 2 units of packed red cells. Elevated kidney function requiring placement of a temporary hemodialysis catheter and hemodialysis has been initiated by nephrology. Became increasingly more short of breath requiring BiPAP support. Has received multiple doses of Lasix, continues to be on and off the BiPAP, Cardizem drip initiated to help control heart rate, Lasix drip initiated to help diurese the patient, receives Levophed for blood pressure support. Has MRSA bacteremia concerns for possible endocarditis however patient is unable to lie flat for CHASITY. Has metastatic prostate cancer with involvement of the rectum causing a GI bleed. INTERVAL HISTORY: 07/15/2017: Patient lying in bed appears tired today complaining to his left side, remains on 3 L nasal cannula, afebrile, antibiotic therapy continues for MRSA septicemia. Next hemodialysis will be performed on Sunday. Continues to be tachycardic is on and off the Levophed at 5 g an hour for blood pressure support, Lasix drip continues at 10 mg an hour, renal function remains impaired but does have good urine output. Poor appetite, takes primarily his ensure shakes. Antibiotic therapy in the form of Zosyn and vancomycin. Last BM 201707/14/2017: Patient lying in bed, breathing easier. Remains on 3 L nasal cannula, afebrile , antibiotic therapy continues for MRSA septicemia. Hemodialysis done today with 3.5 L removed, patient did become more tachycardic during the procedure. His baseline rate is about 120 beats a minute irregular, blood pressure is in the 110s, Levophed infusion at 2 mics a minute, Lasix drip continues at 10 mg an hour, renal function continues to be impaired. Appetite is poor, does drink his ensure. 07/13/2017: Patient lying in bed receiving hemodialysis, breathing is somewhat easier, heart rate remains elevated. Had an episode of chest discomfort and received Dilaudid which relieved his pain. Pain was located on the right side of the chest and reproducible with palpation. Remains on 5 L nasal cannula did not require any BiPAP support overnight. Hemodialysis was successful removing 3 L of fluid yesterday patient is scheduled for another round of hemodialysis today. Lasix drip continues at 10 mg an hour, remains in atrial fibrillation amiodarone drip at 0.5 mg a minute, norepinephrine was on and off throughout the night. Currently at 4 g. Follow-up blood cultures negative for growth. Remains on daptomycin and ciprofloxacin. REVIEW OF SYSTEMS: Done for constitutional ,cardiovascular, GI, pulmonary with relevant findings as above. CURRENT MEDICATIONS Acetaminophen, [place], DuoNeb, amiodarone 400 mg by mouth 3 times a day, Casodex 50 g by mouth twice a day, Questran 4 g by mouth twice a day, , daptomycin 650 mg IV piggyback, Aranesp 40 g subcu every 7 days, Colace, Lasix 250 mg at 10 mL an hour, Dilaudid 0.5 mg IV push every 4 hours, Ativan 1 mg IV every 4 hours when necessary, melatonin 3 mg by mouth at bedtime, Levophed 4 milligrams in 250 mL IV piggyback, Protonix 40 mg by mouth daily, Ultram 50 g by mouth 4 times a day, MiraLAX. PHYSICAL EXAM VITAL SIGNS: Temperature 98.3, pulse 116, respiratory rate 19, blood pressure 95/50, oxygen saturation 100% on 3 L. GENERAL APPEARANCE: Lying in bed, tired appearing short of breath. EYES: Pupils equal. Conjunctiva normal. NECK: JVD not raised. Mass not palpable. RESPIRATORY: Respiratory effort increased. Diminished bilaterally basilar crackles. CARDIOVASCULAR: First and second sounds irregular. Moderate edema. ABDOMEN: Soft. Liver and spleen not palpable. No tenderness. No mass palpable. PSYCHIATRY: Alert and oriented x3. Mood and affect somewhat anxious appearing. 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 -Chronic kidney disease, prostate leak from nephrosclerosis. -Hypotensive shock. Possibly cardiogenic. The patient is on and off of Levophed. -Persistent atrial fibrillation, uncontrolled on IV amiodarone. -Metastatic prostate cancer with involvement of the bone including the inferior pubic rami, liver on PET scan, and the rectum causing rectal bleeding. The patient is getting palliative radiation treatment and Casodex. -Acute blood loss anemia from gastrointestinal bleed from metastatic prostate cancer to the rectum, having received 2 units packed red blood cells. -Diabetes mellitus type 2 on insulin drip -Hypertension, history of. -Hyperlipidemia. -Acute congestive heart failure from systolic dysfunction ejection fraction 30- 35% could be arrhythmia reduced, slow to respond -Acute hypoxic respiratory failure status post ventilator support, patient currently on 6 L of oxygen, slow to respond -Acute renal failure, likely acute tubular necrosis, now requiring hemodialysis , slow to respond -Acute urinary tract infection with Pseudomonas, status post antibiotic, resolved -CODE STATUS: No code PLAN: Antibiotic therapy switched to Zosyn and vancomycin with daptomycin discontinued due to concerns for staphylococcal pneumonia. Continues to be on and off the Levophed drip. IV Lasix drip continues, cardiology continues to manage patient's atrial fibrillation with oral amiodarone. Overall prognosis continues to be quite poor particularly with multiple comorbidities and metastatic prostate cancer. Plan of care discussed with the patient the bedside we will follow closely. [employer] SALES ASSISTANT statement: Patient was seen and examined by nurse practitioner Beth Hammond and all elements of the case discussed with attending Dr. Ortiz
[2017-07-15 19:01] LABS: Glucose,Whole Blood 127 mg/dL (75-99)
[2017-07-15 20:03] LABS: Glucose,Whole Blood 124 mg/dL (75-99)
[2017-07-15 21:39] LABS: Glucose,Whole Blood 143 mg/dL (75-99)
[2017-07-15 23:10] LABS: Glucose,Whole Blood 164 mg/dL (75-99)
[2017-07-15 23:47] LABS: Glucose,Whole Blood 149 mg/dL (75-99)
[2017-07-16 00:56] LABS: Glucose,Whole Blood 128 mg/dL (75-99)
[2017-07-16 02:05] LABS: Glucose,Whole Blood 111 mg/dL (75-99)
[2017-07-16 04:08] LABS: Glucose,Whole Blood 134 mg/dL (75-99)
[2017-07-16 04:32] LABS: Basophils % (A) 0 %; Eosinophils % (A) 6 %; HCT 27.7 % (39.0-53.0); Hypochromasia Marked; Lymphocytes # (A) 1.4 k/uL (1.0-4.8); Lymphocytes % (A) 8 %; MCH 26.6 pg (25.0-35.0); MCHC 28.9 g/dL (31.0-37.0); MCV 91.8 fL (80.0-100.0); Mean Platelet Volume 6.8; Monocytes # (A) 0.7 k/uL (0-1.0); Monocytes % (A) 4 %; Neutrophils # (A) 14.3 k/uL (1.3-7.7); Neutrophils % (A) 81 %; Platelet Count 198 k/uL (150-450); Poikilocytosis Slight; RBC 3.02 m/uL (4.30-5.90); RDW 15.9 % (11.5-15.5); WBC 17.6 k/uL (3.8-10.6)
[2017-07-16 04:46] LABS: Calcium 8.4 mg/dL (8.4-10.2); Phosphorus 4.9 mg/dL (2.5-4.5); Potassium 4.1 mmol/L (3.5-5.1)
[2017-07-16 04:51] LABS: Vancomycin,Random 15.7 ug/mL
[2017-07-16 06:03] LABS: Glucose,Whole Blood 180 mg/dL (75-99)
[2017-07-16 06:57] LABS: Glucose,Whole Blood 191 mg/dL (75-99)
[2017-07-16] MEDS: IPRATROPIUM-ALBUTEROL 3 ML NEB INHALATION SCH ×4 (07:37→19:14)
[2017-07-16 07:58] LABS: Glucose,Whole Blood 166 mg/dL (75-99)
--- NOTE | 2017-07-16 08:03 | PN ---
PROGRESS NOTE DATE OF SERVICE: 07/15/2017 ATTENDING NOTE: Patient seen and examined by me. I discussed with nurse practitioner, Ms. Hammond. Patient admitted to the ICU. Tired, short of breath. Drips include IV Lasix and IV Levophed. PHYSICAL EXAMINATION: Heart rate is about 130s. LUNGS: Basal crackles, edema present. Patient is able answer simple questions but tired-appearing. White count 21.2, BUN 38, creatinine 3.6. ASSESSMENT: Multiple medical problems including metastatic prostate cancer, acute on chronic congestive heart failure, acute hypoxic respiratory failure. Prognosis remains poor. Continue current medication and treatment plan. Supportive care. Will follow. MMODL / IJN: [id number] /
[2017-07-16] MEDS: NOREPINEPHRIN 4 MG-0.9% NS PMX 4 MG/250 ML ML IV SCH ×2 (08:21→21:02)
--- NOTE | 2017-07-16 08:28 | XR ---
EXAMINATION TYPE: XR chest 1V DATE OF EXAM: 07/16/2017 COMPARISON: Prior chest x-ray 07/15/2017 HISTORY: Pneumonia TECHNIQUE: Single frontal view of the chest is obtained. FINDINGS: Bilateral upper lobe airspace disease persists. The heart is enlarged. Perihilar increased density also noted. No evident pneumothorax. Difficult to exclude small effusions. IMPRESSION: Findings are similar to prior exam.
[2017-07-16] MEDS: PIPERACILLIN-TAZOBACTAM 3.375 GM in DEXTROSE/WATER 1 50ML.BAG IVPB SCH ×2 (08:30→21:01)
[2017-07-16] MEDS: METOPROLOL TARTRATE 25 MG TAB PO SCH ×2 (08:31→21:01)
[2017-07-16] MEDS: BICALUTAMIDE 50 MG TAB PO SCH ×2 (08:31→21:01)
[2017-07-16] MEDS: AMIODARONE 200 MG TAB PO SCH ×3 (08:31→21:01)
[2017-07-16] MEDS: CHOLESTYRAMINE (WITH SUGAR) 4 GM PACKET PO SCH ×2 (08:32→17:23)
[2017-07-16] MEDS: PANTOPRAZOLE 40 MG TABLET PO SCH (08:32)
[2017-07-16 09:25] LABS: Glucose,Whole Blood 143 mg/dL (75-99)
[2017-07-16] MEDS: HYDROmorphone 2 MG/ML 1 ML SYRINGE IVP PRN ×4 (09:33→21:23)
--- NOTE | 2017-07-16 09:34 | PN ---
PROGRESS NOTE DATE OF SERVICE: 07/15/2017. REASON FOR FOLLOWUP: 1. 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 2. Pneumonia. INTERVAL HISTORY: The patient is afebrile, has been breathing slightly comfortably. He did have some cough but not bringing up any sputum. No chest pain. No palpitations. No abdominal pain. No nausea, vomiting, or any diarrhea. EXAMINATION: Blood pressure 109/53 with a pulse of 123, temperature of 98. He is 99% on 2 L nasal cannula. General description is an elderly male lying in bed in no distress. Respiratory system unlabored breathing with decreased breath sounds in the bases. HEART: S1, S2. Regular rate and rhythm. Abdomen soft, no tenderness. LABS: White count slightly down to 21.2. His BUN is 38, creatinine 3.60. DIAGNOSTIC IMPRESSION AND PLAN: Patient with MRSA bacteremia , likely endocarditis Antibiotic has been switched over to vancomycin by Pulmonary with concern for pneumonia. Will need to monitor his kidney function closely and also continue with Zosyn adjusting it further based on the culture report. Continue supportive care. MMODL / IJN: [id number] / IRENE
[2017-07-16] MEDS ORDERED: VANCOMYCIN 1,750 MG in SODIUM CHLORIDE 0.9% 250 ML IVPB ONE (10:00)
[2017-07-16 10:18] LABS: Glucose,Whole Blood 127 mg/dL (75-99)
--- NOTE | 2017-07-16 10:19 | P.PN ---
Subjective Progress Note Date: 07/16/17 Principal diagnosis: Acute MRSA sepsis and bacteremia. 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 This is a pleasant 81-year-old gentleman who resides at an extended care facility who has a history of coronary artery disease, paroxysmal atrial fibrillation, diabetes mellitus, hyperlipidemia, hypertension, shingles, MRSA infection in the blood and urine. 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 A recent PET scan revealed large hypermetabolic lesion presumed right-sided prostatic carcinoma there is also evidence of extra Chiller extension into the rectum and into the right pelvis causing osseous destruction of medial right MP a pelvic ramus near pubic symphysis. There is metastatic lesion to the liver as well. Patient was readmitted yesterday with fever and generalized weakness. Gentleman admitted to the regular medical floor with suspected urinary tract infection and sepsis. Last evening he developed bright red bleeding from the rectum approximately 50 MLS. He did have a drop in his systolic blood pressure into the 70s and 80s. His hemoglobin was 7.0. He was transferred here to the intensive care unit. He did not require any pressors. Did receive 2 units of packed red blood cells in his current hemoglobin is 8.6. White count 11.7. Creatinine 3.10. AST 158, ALT 106 Blood cultures are revealing presumptive MRSA. His chest x-ray shows mild fluid volume overload with small effusions. He is maintaining O2 saturations in the upper 90s on 2 L/m per nasal cannula. On 07/10/2017 patient is seen in follow-up on medical surgical floor. He developed an acute episode of respiratory distress, severe orthopnea, and acute dyspnea. His lab work today was reviewed, there is no evidence of leukocytosis , WBC is 7.7, hemoglobin is 8.1, his sodium is 133, his carbon dioxide was 18, his BUN is 55, and creatinine is 5.40. Nephrology has discussed initiation of hemodialysis with him today, patient is in agreement. His oxygenation requirements have increased, this morning he was on 2 L per nasal cannula with O2 sat at 97%, through the day and has deteriorated, and patient is not requiring 5-6 L per nasal cannula with O2 sat at 92-93%. Lung sounds are positive for coarse rales throughout the lung doan bilaterally. He remains afebrile. No other episodes of rectal bleeding was observed. Patient was actually due to start radiation therapy for his prostate cancer today, however in view of his worsening respiratory status, was put on hold. Stat chest x-ray was obtained, and shows worsening decompensated congestive heart failure and confluent pulmonary edema. 80 mg of Lasix IV was given, with no response, patient only made 10 mL of urine. Patient has been progressively more oliguric over the last few days. Has been complaining of worsening appetite and weakness. Dr. Escobedo was consulted for placement of hemodialysis catheter, patient is unable to lay down flat, patient may have to go on the BiPAP support and hemodialysis catheter may have to be placed in the femoral area. We will transfer the patient to the intensive care, and request Dr. Escobedo to place a hemodialysis catheter STEPHEN and initiate hemodialysis as soon as possible. On 07/11/2017 patient remains in the intensive care BiPAP support with pressures 12.5 and FiO2 40%. He had hemodialysis last night would removal of 3 L of fluid, he is scheduled for hemodialysis again today. Is moderately short of breath, lung sounds are positive for coarse rhonchi, rales. And to produce some urine, 10-20 mL per hour. Chest x-ray from 07/11/2017 has been reviewed and shows airspace disease consistent with CHF and pulmonary edema. Support was reviewed, WBCs are up to 14, hemoglobin is 9, serum sodium is 134, serum potassium is 4.1, B1 is 46, creatinine is 5.2, with CO2 of 17. Bilateral lower extremities positive for 1+ pitting edema. Patient was given 80 mg of Lasix with modest response, about 125 mL in the first hour after administration. Continues on ciprofloxacin for Pseudomonas in the urine, daptomycin for the positive blood cultures with MRSA. On 07/12/2017 patient is seen again in the intensive care. Wore the BiPAP mask intermittently last night, this morning he is on 6 L of oxygen, per high flow nasal cannula. Denies worsening dyspnea at rest, still using accessory abdominal muscles. Lung sounds are much improved from yesterday's exam, positive for a few scattered expiratory wheezes over posterior lower basis, but no rhonchi no rales auscultated. Last night patient went into atrial fibrillation with rapid ventricular rate with a rate of 1:30 to 140 BPM. Patient was started on Cardizem drip at 10 mg/hour. He had 2 L removed during hemodialysis yesterday evening, her symptoms. He was started on Lasix drip at 10 mg/hr per nephrology. His urine output has improved, averaging 60-100 mL per hour. Overall his net fluid balance is -2800 mL in the last 24 hours. He is currently having another hemodialysis treatment, with a target removal of 3 L today. Patient is hypotensive with systolic in the 70s and 80s, still tachycardic with a rate of 120-120 BPM. May have to restart vasopressor support with levophed. Chest x-ray from December 30 was reviewed and shows diffuse wheezes bilaterally, pulmonary edema versus diffuse pneumonia. Cultures are negative, patient has MRSA bacteremia, concern for possible endocarditis. Currently, covered with daptomycin. Cardiology is unable to proceed with CHASITY the view of patient's respiratory status. Continue oral Cipro for pseudomonal unit tract infection. Overall the patient states his breathing is easier today. The patient is seen again today 07/13/2017 in follow-up in the intensive care unit. He is awake and alert in no acute distress. He did have an episode of chest discomfort. EKG revealed no significant changes. He was given Dilaudid which his pain was relieved. The pain was somewhat atypical it was on the right side and reproducible with palpation. He is down to 5 L/m per nasal cannula to maintain O2 saturations in the 90s. He did not require BiPAP support last night. He had over 3 L removed yesterday via dialysis and another 4 L this morning. His chest x-ray continues to show bilateral infiltrates more so on the right upper lung. He is continued on a Lasix drip at 10 mg per hour. He remains in atrial fibrillation. He remains on amiodarone drip at 0.5 mg/ m. He was off the norepinephrine throughout the night. It was resumed early this morning during dialysis at 6 mcg/m. Currently down to 4 g. Follow-up blood cultures reveal no growth. Initial blood cultures were positive for MRSA. Urine was positive for Pseudomonas. He remains on daptomycin and Ciprofloxacillin. White count 20.0. Hemoglobin 7.6. Creatinine 3.90. His appetite is poor. He is drinking Ensure. On 07/14/2017 and seeing this patient for a follow-up. The patient is awake and alert. Currently is on 3 L of oxygen by nasal cannula. Chest x-ray still showing upper lobe consolidation bilaterally. The patient has some limited leukocytosis. The patient has no fever. The patient remains on daptomycin regarding previous MRSA septicemia. The patient underwent hemodialysis this morning with ultrafiltration. A total of 3.5 L of fluid was removed on today's ultrafiltration. During the time, the patient became more tachycardic with underlying atrial fibrillation rhythm. His current rate is around 120 irregular. His blood pressure is in the 110s and the patient has a map of above 65. He is currently on norepinephrine infusion at 2 mics. He is producing adequate amount of urine output in the order of more than 50 mL an hour and the patient is on Lasix drip at 10 mg an hour. The renal function is still impaired with a creatinine of 3.4. The patient is tolerating a sure. He is having loose bowel movements. No altered mentation at this point. No other significant events overnight. On 07/15/2017, them seeing this patient for a follow-up. Awake and alert. Chest x-ray still showing extensive consolidation of the upper lobes bilaterally. There is a concern of staphylococcal pneumonia and for that reason the daptomycin was discontinued and the patient was switched to IV vancomycin. The first dose will be given to him today. The patient remains pressor dependent at 5 mics of levo fed. The patient is on amiodarone orally and the patient remains in atrial fibrillation and at times is having rapid ventricular response. The highest heart rate has been between 120 and 1:30. The patient is producing adequate amount of urine output. He is on Lasix drip at 10 mg an hour. Nephrology is on the case. No recommendations for hemodialysis today. Repeat blood cultures of been sent. The patient is awake and alert and communicating. He requested a DNR/DNI CODE STATUS. He is having adequate bowel moments. He has loose soft liquidy BMs. His oral intake is minimal and is mainly relying on a sure shakes. No other significant events over the past 24 hours. He is quite weak and debilitated at this point. Reevaluated today on 07/16/2017, patient is feeling a bit better, pain seems to be a bit better controlled with Dilaudid, remains on antibiotics in the form of vancomycin and Zosyn, remains on 5-7 g of levo fed, patient looks chronically ill weak and debilitated. Remains also on Lasix drip. Labs were reviewed WBC count is 17.6, improving. Hemoglobin is 8, electrolytes are normal BUN is 52 creatinine is 4.0. Patient is still receiving daily dialysis mostly for fluid overload, remains nonoliguric and he remains on Lasix drip. Objective - Vital Signs Vital signs: Vital Signs Temp 98.2 F 07/16/17 08:00 Pulse 124 H 07/16/17 09:00 Resp 19 07/16/17 09:00 BP 93/41 07/16/17 09:00 Pulse Ox 99 07/16/17 09:00 Intake & Output 07/15/17 07/16/17 07/16/17 18:59 06:59 18:59 Intake Total 1847.692 458.933 469.011 Output Total 755 771 205 Balance 1092.692 -312.067 264.011 Weight 109.8 kg Intake: IV 375.0 145.0 45.0 Furosemide 250 mg In 10 Sodium Chloride 0.9% 225 ml @ 10 MG/HR 10 mls/hr IVP .Q24H [facility] Rx#: [id number] Piperacillin-Tazobactam 3 12.5 .375 gm In Dextrose/Water 1 50ml.bag @ 12.5 mls/hr IVPB Q12HR [facility] Rx#: [id number] Piperacillin-Tazobactam 3 37.5 50.0 25.0 .375 gm In Dextrose/Water 1 50ml.bag @ 12.5 mls/hr IVPB Q12HR [facility] Rx#: [id number] Sodium Chloride 0.9% 1, 75 95 10 000 ml @ 20 mls/hr IV . Q24H [facility] Rx#:[id number] Vancomycin 1,750 mg In 250 Sodium Chloride 0.9% 250 ml @ 125 mls/hr IVPB ONCE ONE Rx#:[id number] Intake, IV Titration 521.692 163.933 167.011 Amount Furosemide 250 mg In 247.333 Sodium Chloride 0.9% 225 ml @ 10 MG/HR 10 mls/hr IVP .Q24H [facility] Rx#: [id number] Insulin Regular 100 unit 41.859 46.183 17.448 In Sodium Chloride 0.9% 100 ml @ Per Protocol IV .Q0M [facility] Rx#:[id number] Norepinephrin 4 mg-0.9% 232.500 117.750 149.563 Ns Pmx 4 mg In 250 ml @ Titrate IV .Q0M [facility] Rx#: [id number] Oral 951 150 257 Output: Urine 755 770 205 Stool 1 Other: Voiding Method Indwelling Catheter Indwelling Catheter Indwelling Catheter # Bowel Movements 1 - Exam GENERAL EXAM: Alert, fairly comfortable in no apparent distress. HEAD: Normocephalic. EYES: Normal reaction of pupils, equal size. NOSE: Clear with pink turbinates. THROAT: No erythema or exudates. NECK: No masses, no JVD. CHEST: No chest wall deformity. LUNGS: Equal air entry with crackles posterior bases. CVS: S1 and S2 normal with no audible murmur, irregular rhythm. ABDOMEN: No hepatosplenomegaly, normal bowel sounds, no guarding or rigidity. SPINE: No scoliosis or deformity SKIN: No rashes CENTRAL NERVOUS SYSTEM: No focal deficits, tone is normal in all 4 extremities. EXTREMITIES: There is bilateral peripheral edema. No clubbing, no cyanosis. Peripheral pulses are intact. - Labs CBC & Chem 7: 07/16/17 04:01 07/16/17 04:01 Labs: Abnormal Lab Results - Last 24 Hours (Table) 07/15/17 07/15/17 07/15/17 Range/Units 11:17 12:11 13:19 WBC (3.8-10.6) k/uL RBC (4.30-5.90) m/uL Hgb (13.0-17.5) gm/dL Hct (39.0-53.0) % MCHC (31.0-37.0) g/dL RDW (11.5-15.5) % Neutrophils # (1.3-7.7) k/uL Eosinophils # (0-0.7) k/uL Carbon Dioxide (22-30) mmol/L BUN (9-20) mg/dL Creatinine (0.66-1.25) mg/dL Glucose (74-99) mg/dL POC Glucose (mg/dL) 153 H 128 H 138 H (75-99) mg/dL Phosphorus (2.5-4.5) mg/dL 07/15/17 07/15/17 07/15/17 Range/Units 14:20 15:13 16:50 WBC (3.8-10.6) k/uL RBC (4.30-5.90) m/uL Hgb (13.0-17.5) gm/dL Hct (39.0-53.0) % MCHC (31.0-37.0) g/dL RDW (11.5-15.5) % Neutrophils # (1.3-7.7) k/uL Eosinophils # (0-0.7) k/uL Carbon Dioxide (22-30) mmol/L BUN (9-20) mg/dL Creatinine (0.66-1.25) mg/dL Glucose (74-99) mg/dL POC Glucose (mg/dL) 165 H 179 H 162 H (75-99) mg/dL Phosphorus (2.5-4.5) mg/dL 07/15/17 07/15/17 07/15/17 Range/Units 18:59 20:02 21:37 WBC (3.8-10.6) k/uL RBC (4.30-5.90) m/uL Hgb (13.0-17.5) gm/dL Hct (39.0-53.0) % MCHC (31.0-37.0) g/dL RDW (11.5-15.5) % Neutrophils # (1.3-7.7) k/uL Eosinophils # (0-0.7) k/uL Carbon Dioxide (22-30) mmol/L BUN (9-20) mg/dL Creatinine (0.66-1.25) mg/dL Glucose (74-99) mg/dL POC Glucose (mg/dL) 127 H 124 H 143 H (75-99) mg/dL Phosphorus (2.5-4.5) mg/dL 07/15/17 07/15/17 07/16/17 Range/Units 23:07 23:46 00:55 WBC (3.8-10.6) k/uL RBC (4.30-5.90) m/uL Hgb (13.0-17.5) gm/dL Hct (39.0-53.0) % MCHC (31.0-37.0) g/dL RDW (11.5-15.5) % Neutrophils # (1.3-7.7) k/uL Eosinophils # (0-0.7) k/uL Carbon Dioxide (22-30) mmol/L BUN (9-20) mg/dL Creatinine (0.66-1.25) mg/dL Glucose (74-99) mg/dL POC Glucose (mg/dL) 164 H 149 H 128 H (75-99) mg/dL Phosphorus (2.5-4.5) mg/dL 07/16/17 07/16/17 07/16/17 Range/Units 02:03 04:01 04:01 WBC 17.6 H (3.8-10.6) k/uL RBC 3.02 L (4.30-5.90) m/uL Hgb 8.0 L (13.0-17.5) gm/dL Hct 27.7 L (39.0-53.0) % MCHC 28.9 L (31.0-37.0) g/dL RDW 15.9 H (11.5-15.5) % Neutrophils # 14.3 H (1.3-7.7) k/uL Eosinophils # 1.0 H (0-0.7) k/uL Carbon Dioxide 20 L (22-30) mmol/L BUN 52 H (9-20) mg/dL Creatinine 4.00 H (0.66-1.25) mg/dL Glucose 131 H (74-99) mg/dL POC Glucose (mg/dL) 111 H (75-99) mg/dL Phosphorus 4.9 H (2.5-4.5) mg/dL 07/16/17 07/16/17 07/16/17 Range/Units 04:06 06:02 06:55 WBC (3.8-10.6) k/uL RBC (4.30-5.90) m/uL Hgb (13.0-17.5) gm/dL Hct (39.0-53.0) % MCHC (31.0-37.0) g/dL RDW (11.5-15.5) % Neutrophils # (1.3-7.7) k/uL Eosinophils # (0-0.7) k/uL Carbon Dioxide (22-30) mmol/L BUN (9-20) mg/dL Creatinine (0.66-1.25) mg/dL Glucose (74-99) mg/dL POC Glucose (mg/dL) 134 H 180 H 191 H (75-99) mg/dL Phosphorus (2.5-4.5) mg/dL 07/16/17 07/16/17 Range/Units 07:56 09:23 WBC (3.8-10.6) k/uL RBC (4.30-5.90) m/uL Hgb (13.0-17.5) gm/dL Hct (39.0-53.0) % MCHC (31.0-37.0) g/dL RDW (11.5-15.5) % Neutrophils # (1.3-7.7) k/uL Eosinophils # (0-0.7) k/uL Carbon Dioxide (22-30) mmol/L BUN (9-20) mg/dL Creatinine (0.66-1.25) mg/dL Glucose (74-99) mg/dL POC Glucose (mg/dL) 166 H 143 H (75-99) mg/dL Phosphorus (2.5-4.5) mg/dL Microbiology - Last 24 Hours (Table) 07/14/17 10:21 Blood Culture - Preliminary Blood No Growth after 24 hours 07/14/17 10:14 Blood Culture - Preliminary Blood No Growth after 24 hours 07/14/17 08:02 Gram Stain - Preliminary Sputum Sputum Culture - Preliminary Yeast species Assessment and Plan Assessment: #1 metastatic prostate cancer with skeletal and liver involvement. The tumor itself is extended locally to involve the rectal wall and causing mass effect on the rectum. The patient a candidate for systemic chemotherapy. Consideration was given for palliative radiation therapy however this has not been done as the patient became quite ill and he went into acute hypoxic respiratory failure. Note that the PET scan of the whole body showed a Large hypermetabolic lesion of right-sided prostatic carcinoma with evidence of extra capsular extension into the rectum and into the right pelvis causing osseous distraction of medial right inferior pelvic ramus near pubic symphysis. Metastatic lesion to the liver. #2 Acute rectal bleeding secondary to invading prostate mass. Status post 2 units of packed red blood cell infusions. Current hemoglobin 8.0 #3 Sepsis secondary to MRSA bacteremia. There is a concern for infective endocarditis knowing that the possible mitral valve vegetation. Estimated ejection fraction was around 30%. #4 Acute on chronic renal failure, requiring recent daily hemodialysis. Current creatinine 3.6. #5 acute hypoxic history failure with extensive upper lobe consolidation. Patient improved with hemodialysis ultrafiltration. Nevertheless he continues to have leukocytosis and there is extensive consolidation of the upper lobes bilaterally. He is on IV Zosyn. Concern for MRSA pneumonia is there and based on that the patient will be switched to vancomycin. #6 chronic atrial fibrillation with rapid response currently on an amiodarone orally 400 mg 3 times a day. The patient on a candidate for anticoagulation. #7 Coronary artery disease. #8 Diabetes mellitus. Recurrent on insulin drip for blood sugar control at the rate of 1.5 units an hour #9 Hyperlipidemia. #10 Hypertension. #11 congestion heart failure with ejection fraction of 30% and concern for mitral valve vegetation/endocarditis #12 hypotension currently on few mics of levo fed for hemodynamic support him a rule out secondary to underlying septicemia #13 extensive lower extremities edema and signs of fluid overload. The patient is improving in terms of the fluid balance the patient is currently on lisinopril 10 mg an hour. Daily dialysis and ultrafiltration is also being done #14 anemia, multifactorial. He was stable at 7.9 #15 poor baseline performance and functional status and the patient is a [facility] resident. Cor status is DNR/DNI #16 history of shingles. #17 acute urinary tract infection secondary to pseudomonas aeruginosa, patient remains on Zosyn. Recommendation: Continue vancomycin, continue Zosyn, continue Lasix and dialysis , continue treatment of atrial fibrillation as per cardiology, continue to wean pressors if possible, patient is presently on 5-7 g of norepinephrine. Patient remains critically ill, and critical care time is 35 minutes. Not quite ready for any discharge planning for transfer out of the ICU at this point. Time with Patient: Greater than 30
[2017-07-16 12:09] LABS: Glucose,Whole Blood 183 mg/dL (75-99)
[2017-07-16] MEDS: MIDODRINE 5 MG TAB PO PRN (12:27)
[2017-07-16] MEDS: INSULIN ASPART 100 UNIT/ML 1 ML 10 ML VIAL SQ SCH ×3 (12:40→21:00)
--- NOTE | 2017-07-16 13:01 | PN ---
PROGRESS NOTE HISTORY: Mr. Leslie is an 81-year-old male who has a history of prostate cancer with metastasis, atrial fibrillation, history of pneumonia, renal failure. He continues to be fatigued and short of breath. He continues to be on IV norepinephrine at 5 mcg/kg per minute. He is in atrial fibrillation with a rapid ventricular response, at times in the 120s, although improved compared was before. He has no dizziness or palpitation. He has no chest pain. He continues to be on amiodarone 40 mg 3 times a day, furosemide IV, Metoprolol tartrate 25 mg twice a day. PHYSICAL EXAMINATION: Blood pressure 112/70 with a heart rate in the one teens. Lungs was mild bronchial breathing in the apices. Heart irregularly irregular. S1, S2, no S3, with a systolic ejection murmur. No diastolic murmur. Abdomen is soft, obese, nontender. Extremities +1 edema. LAB DATA: BUN and creatinine 52 and 4.0, potassium 4.1, hemoglobin of 8. IMPRESSION: 1. Atrial fibrillation with persistent rapid ventricular response, although improving. Not a candidate for anticoagulation because of bleeding. 2. Prostate cancer with metastasis. 3. Pneumonia. 4. Renal failure. RECOMMENDATIONS: We will continue supportive care. Wean norepinephrine as tolerated. Continue on the amiodarone at present dose. If off the norepinephrine then the dose of beta-trinity can be increased. Depending on his progress, further recommendations will be made. The prognosis remains guarded. MMODL / IJN: [id number] /
[2017-07-16] MEDS ORDERED: ALTEPLASE 2 MG VIAL (CATHFLO) IV ONE (14:59)
[2017-07-16] MEDS: FUROSEMIDE 250 MG in SODIUM CHLORIDE 0.9% 225 ML IVP SCH (16:04)
[2017-07-16 16:14] LABS: Glucose,Whole Blood 168 mg/dL (75-99)
--- NOTE | 2017-07-16 16:40 | P.PN ---
Progress Note - Text Progress Note Date: 07/16/17 DATE OF SERVICE: 07/16/2017 PRESENTING COMPLAINT: Shortness of breath HISTORY OF PRESENT ILLNESS: 81-year-old male resident of [facility] on the [place] with multiple medical problems who presented with fever and generalized weakness, admitted to the regular medical floor with a suspected UTI infection and sepsis.Patient developed bright red blood per rectum and his systolic blood pressure dropped into the 70s and 80s. Hemoglobin was 7.0. Transferred to the ICU. Received 2 units of packed red cells. Elevated kidney function requiring placement of a temporary hemodialysis catheter and hemodialysis has been initiated by nephrology. Became increasingly more short of breath requiring BiPAP support. Has received multiple doses of Lasix, continues to be on and off the BiPAP, Cardizem drip initiated to help control heart rate, Lasix drip initiated to help diurese the patient, receives Levophed for blood pressure support. Has MRSA bacteremia concerns for possible endocarditis however patient is unable to lie flat for CHASITY. Has metastatic prostate cancer with involvement of the rectum causing a GI bleed. INTERVAL HISTORY: 07/16/2017: Patient lying in bed and is tired appearing, having increasing complaints of pain. Remains on 3 L nasal cannula, afebrile,remains tachycardic, antibiotic therapy continues for MRSA septicemia, hemodialysis later today. Levophed continues at 6 g, insulin drip discontinued, Lasix drip at 10 ml. Appetite poor primarily drinks his ensure shakes. Antibiotics continue in the form of Zosyn and vancomycin. 07/15/2017: Patient lying in bed appears tired today complaining to his left side, remains on 3 L nasal cannula, afebrile, antibiotic therapy continues for MRSA septicemia. Next hemodialysis will be performed on Sunday. Continues to be tachycardic is on and off the Levophed at 5 g an hour for blood pressure support, Lasix drip continues at 10 mg an hour, renal function remains impaired but does have good urine output. Poor appetite, takes primarily his ensure shakes. Antibiotic therapy in the form of Zosyn and vancomycin. Last BM 201707/14/2017: Patient lying in bed, breathing easier. Remains on 3 L nasal cannula, afebrile , antibiotic therapy continues for MRSA septicemia. Hemodialysis done today with 3.5 L removed, patient did become more tachycardic during the procedure. His baseline rate is about 120 beats a minute irregular, blood pressure is in the 110s, Levophed infusion at 2 mics a minute, Lasix drip continues at 10 mg an hour, renal function continues to be impaired. Appetite is poor, does drink his ensure. 07/13/2017: Patient lying in bed receiving hemodialysis, breathing is somewhat easier, heart rate remains elevated. Had an episode of chest discomfort and received Dilaudid which relieved his pain. Pain was located on the right side of the chest and reproducible with palpation. Remains on 5 L nasal cannula did not require any BiPAP support overnight. Hemodialysis was successful removing 3 L of fluid yesterday patient is scheduled for another round of hemodialysis today. Lasix drip continues at 10 mg an hour, remains in atrial fibrillation amiodarone drip at 0.5 mg a minute, norepinephrine was on and off throughout the night. Currently at 4 g. Follow-up blood cultures negative for growth. Remains on daptomycin and ciprofloxacin. REVIEW OF SYSTEMS: Done for constitutional ,cardiovascular, GI, pulmonary with relevant findings as above. CURRENT MEDICATIONS Acetaminophen, Godley, DuoNeb, amiodarone 400 mg by mouth 3 times a day, Casodex 50 g by mouth twice a day, Questran 4 g by mouth twice a day, , daptomycin 650 mg IV piggyback, Aranesp 40 g subcu every 7 days, Colace, Lasix 250 mg at 10 mL an hour, Dilaudid 0.5 mg IV push every 4 hours, Ativan 1 mg IV every 4 hours when necessary, melatonin 3 mg by mouth at bedtime, Levophed 4 milligrams in 250 mL IV piggyback, Protonix 40 mg by mouth daily, Ultram 50 g by mouth 4 times a day, MiraLAX. PHYSICAL EXAM VITAL SIGNS: Temperature 98.3, pulse 116, respiratory rate 19, blood pressure 95/50, oxygen saturation 100% on 3 L. GENERAL APPEARANCE: Lying in bed, tired appearing short of breath. EYES: Pupils equal. Conjunctiva normal. NECK: JVD not raised. Mass not palpable. RESPIRATORY: Respiratory effort increased. Diminished bilaterally basilar crackles. CARDIOVASCULAR: First and second sounds irregular. Moderate edema. ABDOMEN: Soft. Liver and spleen not palpable. No tenderness. No mass palpable. PSYCHIATRY: Alert and oriented x3. Mood and affect somewhat anxious appearing. INVESTIGATIONS: LABS: White blood cell count 17.6, BUN 52, creatinine 4.00, Accu-Cheks noted. Chest x-ray: bilateral upper lobe air space disease persists heart is enlarged, perihilar increased density also noted. No evident pneumothorax. ASSESSMENT: -Methicillin-resistant Staphylococcus aeruginosa bacteremia with suspicion for underlying endocarditis, pending transesophageal echocardiogram -Possible staphylococcal lung infection/MRSA pneumonia secondary to chest x-ray findings to the upper lobe apices -Volume overload, multifactorial, slow to respond -Anemia, multifactorial, including that of chronic kidney disease and some blood loss, stable at 8.2 -Metabolic acidosis from acute kidney injury, -Acute kidney injury from acute tubular necrosis, including hypertension. -Chronic kidney disease, prostate leak from nephrosclerosis. -Hypotensive shock. Possibly cardiogenic. The patient is on and off of Levophed. -Persistent atrial fibrillation, uncontrolled on IV amiodarone. -Metastatic prostate cancer with involvement of the bone including the inferior pubic rami, liver on PET scan, and the rectum causing rectal bleeding. The patient is getting palliative radiation treatment and Casodex. -Acute blood loss anemia from gastrointestinal bleed from metastatic prostate cancer to the rectum, having received 2 units packed red blood cells. -Diabetes mellitus type 2 on insulin drip -Hypertension, history of. -Hyperlipidemia. -Acute congestive heart failure from systolic dysfunction ejection fraction 30- 35% could be arrhythmia reduced, slow to respond -Acute hypoxic respiratory failure status post ventilator support, patient currently on 6 L of oxygen, slow to respond -Acute renal failure, likely acute tubular necrosis, now requiring hemodialysis , slow to respond -Acute urinary tract infection with Pseudomonas, status post antibiotic, resolved -CODE STATUS: No code PLAN: Antibiotic therapy continues Zosyn and vancomycin we'll follow labs closely to monitor kidney function. Continues to be on and off the Levophed drip. IV Lasix drip continues, cardiology continues to manage patient's atrial fibrillation with oral amiodarone. patient has increasing pain, IV Dilaudid switched to every 2 hours. Overall prognosis continues to be quite poor particularly with multiple comorbidities and metastatic prostate cancer. Plan of care discussed with the patient the bedside we will follow closely. [employer] statement: Patient was seen and examined by nurse practitioner Beth Hammond and all elements of the case discussed with attending Dr. Ortiz
[2017-07-16] MEDS ORDERED: ONDANSETRON 4 MG/2 ML VIAL IVP PRN (17:56)
[2017-07-16 20:02] LABS: Glucose,Whole Blood 141 mg/dL (75-99)
--- NOTE | 2017-07-16 21:22 | PN ---
PROGRESS NOTE DATE OF SERVICE: 07/16/2017. ATTENDING NOTE: This patient was seen and examined by me. I discussed the case with the nurse practitioner Ms. Hammond. Patient remains in the ICU on a Levophed drip. The patient is also on a Lasix drip at mcg. Levophed drip is 5 mcg. Patient is on nasal cannula 3 L. Oral intake remains low. Short of breath at rest. PHYSICAL EXAMINATION: Afebrile. Pulse 119, respiration 20, blood pressure 100/50. LUNGS: Decreased breath sounds. Edema present. HEART: Heart sounds irregular. Tired-appearing. Answering simple questions. LABS: White count 17.6, potassium 4.1, BUN 52, creatinine 4.0. ASSESSMENT: 1. Multiple medical problems, including methicillin-resistant Staphylococcus aeruginosa bacteremia suspicious for endocarditis. 2. Acute on chronic congestive heart failure. 3. End-stage kidney disease, on hemodialysis. PLAN: Prognosis remains not good. The patient is on Lasix drip, IV Zosyn. Prognosis guarded. Will follow. MMODL / IJN: [id number] /
--- NOTE | 2017-07-16 22:37 | PN ---
PROGRESS NOTE The patient is seen for followup for end-stage renal disease. He is maintained on daily dialysis mainly for fluid overload. Currently, he is lying in bed. He denies any significant complaints. He continues to have poor appetite. EXAMINATION: Blood pressure was 95/37, heart rate of 66 per minute. Patient is afebrile. Examination of the heart S1, S2. Examination lungs bilateral breath sounds are heard. Abdomen is soft, nontender. Examination lower extremities shows edema 2+ bilaterally. [employer] exam is grossly intact. Patient moving all 4 extremities. LABS: Revealed sodium 138, potassium 4.1, hemoglobin 8.0 g/dL. ASSESSMENT: 1. Acute kidney injury on top of chronic kidney disease, currently end-stage renal disease, maintained on daily dialysis mainly for fluid overload. This morning the catheter did not work well. The patient had TPA placed in his catheter and we will try to dialyze him again tomorrow. 2. Fluid overload, currently improved. The patient remains on the Lasix drip at 10 mg an hour. 3. MRSA bacteremia with repeat cultures currently negative. 4. Pseudomonas urinary tract infection maintained on Zosyn. 5. Metastatic prostatic CA with rectal mass and gastrointestinal bleed. 6. Anemia, multifactorial, maintained on Aranesp. PLAN: Repeat dialysis in a.m. if catheter is not working, patient will need a new dialysis catheter placed. MMODL / IJN: [id number] /
[2017-07-17 00:03] LABS: Glucose,Whole Blood 167 mg/dL (75-99)
--- NOTE | 2017-07-17 01:05 | CT ---
EXAMINATION TYPE: CODE STROKE: CT brain wo contr DATE OF EXAM: 07/17/2017 COMPARISON: NONE HISTORY: Code Stroke CT DLP: 1464.50 mGycm Automated exposure control for dose reduction was used. FINDINGS: There is cerebral cortical atrophy. There is no mass effect nor midline shift. There is no sign of in tracranial hemorrhage. The calvarium is intact. IMPRESSION: Cerebral atrophy. No acute intracranial abnormality.
--- NOTE | 2017-07-17 01:18 | CT ---
EXAMINATION TYPE: CODE STROKE: CTA head neck DATE OF EXAM: 07/17/2017 HISTORY: Code Stroke COMPARISON: NONE CT DLP: 1464.50 mGycm. Automated Exposure Control for Dose Reduction was Utilized. TECHNIQUE: CTA scan of the neck is performed with IV Contrast, patient injected with 65 mL of , axia l images are obtained, coronal and sagittal reformatted images are reviewed. Three-D reconstructed im ages are created on an independent workstation and reviewed. FINDINGS: There is normal branching pattern of the great vessels on the aortic arch. There is bilateral arteria l flow in the vertebral arteries which appear widely patent. There is bilateral arterial flow in the common internal and external carotid arteries. There is approximate 50% stenosis due to plaque format ion at the origin of the left internal carotid artery. There is approximate 30% stenosis of the origi n of the right internal carotid artery due to plaque formation. There is no evidence of arterial diss ection. There is arterial flow in the anterior middle and posterior cerebral arteries. There is arterial flow in the vertebrobasilar artery system. I see no evidence of aneurysm or neovascularity. There is norm al contrast opacification of the venous sinuses. I see no evidence of intracranial arterial stenosis. IMPRESSION: Negative CT angiogram of the brain. There is some atherosclerotic plaque and 50% stenosis at the origin left internal carotid artery. The re is approximate 30% stenosis origin of the right internal carotid artery. There is close to 50% lum en narrowing due to plaque formation of the proximal left subclavian artery. The images through the upper lung doan show extensive pulmonary airspace consolidation. This could be RDS or severe pulmonary edema. This is probably not changed compared to chest x-ray this morning a t 6:00 AM.
[2017-07-17 01:39] LABS: Anisocytosis Slight; Basophils % (A) 0 %; Eosinophils # (A) 1.5 k/uL (0-0.7); Eosinophils % (A) 7 %; HCT 27.4 % (39.0-53.0); HGB 8.1 gm/dL (13.0-17.5); Hypochromasia Marked; Lymphocytes # (A) 1.3 k/uL (1.0-4.8); Lymphocytes % (A) 7 %; MCH 26.3 pg (25.0-35.0); MCHC 29.4 g/dL (31.0-37.0); MCV 89.5 fL (80.0-100.0); Mean Platelet Volume 7.6; Monocytes # (A) 0.7 k/uL (0-1.0); Monocytes % (A) 4 %; Neutrophils % (A) 81 %; Platelet Count 172 k/uL (150-450); Poikilocytosis Slight; RBC 3.06 m/uL (4.30-5.90); RDW 16.9 % (11.5-15.5); WBC 19.8 k/uL (3.8-10.6)
[2017-07-17] MEDS: INSULIN ASPART 100 UNIT/ML 1 ML 10 ML VIAL SQ SCH ×7 (01:46→23:38)
[2017-07-17 01:48] LABS: INR 1.2 (<1.2); Partial Thromboplastin Time 24.6 sec (22.0-30.0); Prothrombin Time 11.6 sec (9.0-12.0)
[2017-07-17 01:51] LABS: Albumin 2.3 g/dL (3.5-5.0); Calcium 7.9 mg/dL (8.4-10.2); Potassium 3.8 mmol/L (3.5-5.1); Total Bilirubin 0.5 mg/dL (0.2-1.3); Total Protein 5.3 g/dL (6.3-8.2)
[2017-07-17 02:01] LABS: Creatine Kinase <20 U/L (55-170)
[2017-07-17] MEDS: LORazepam 2 MG/ML INJ IV PRN (02:12)
[2017-07-17 02:14] LABS: Creatine Kinase MB 0.5 ng/mL (0.0-2.4)
[2017-07-17 02:22] LABS: Troponin I 0.046 ng/mL (0.000-0.034)
[2017-07-17 03:49] LABS: Glucose,Whole Blood 152 mg/dL (75-99)
[2017-07-17 05:13] LABS: Basophils # (A) 0.1 k/uL (0-0.2); Basophils % (A) 0 %; Eosinophils # (A) 1.3 k/uL (0-0.7); Eosinophils % (A) 6 %; HCT 27.5 % (39.0-53.0); HGB 7.9 gm/dL (13.0-17.5); Hypochromasia Marked; Lymphocytes # (A) 1.9 k/uL (1.0-4.8); Lymphocytes % (A) 9 %; MCH 26.1 pg (25.0-35.0); MCHC 28.6 g/dL (31.0-37.0); MCV 91.1 fL (80.0-100.0); Mean Platelet Volume 7.3; Monocytes # (A) 0.8 k/uL (0-1.0); Monocytes % (A) 4 %; Neutrophils # (A) 17.3 k/uL (1.3-7.7); Neutrophils % (A) 80 %; Platelet Count 191 k/uL (150-450); Poikilocytosis Slight; RBC 3.02 m/uL (4.30-5.90); RDW 15.8 % (11.5-15.5); WBC 21.6 k/uL (3.8-10.6)
[2017-07-17 05:35] LABS: Calcium 8.1 mg/dL (8.4-10.2); Phosphorus 5.4 mg/dL (2.5-4.5)
[2017-07-17 05:38] LABS: Potassium 3.9 mmol/L (3.5-5.1)
--- NOTE | 2017-07-17 05:40 | PN ---
PROGRESS NOTE DATE OF SERVICE: 07/16/2017 REASON FOR FOLLOWUP: MRSA bacteremia and pneumonia. INTERVAL HISTORY: The patient is afebrile. He has been breathing slightly comfortably. Did require low- dose pressor as well as BiPAP for his respiratory support. Denies significant chest pain. Occasional cough. No diarrhea. PHYSICAL EXAMINATION: On examination, blood pressure 99/46, pulse 100, temperature of 98. He is 98% on BiPAP. General description is an elderly male lying in bed in no distress. RESPIRATORY SYSTEM: Unlabored breathing. Decreased breath sounds at the bases. HEART: S1, S2. Regular rate and rhythm. ABDOMEN: Soft, no tenderness. LABS: Hemoglobin 8, white count down to 17.6. BUN of 52, creatinine 4.0. Blood culture repeat has been negative. Sputum with Destiny glabrata. DIAGNOSTIC IMPRESSION AND PLAN: 1. Patient with methicillin-resistant Staphylococcus aureus bacteremia with concern for possible Endocarditis. CHASITY has been put on hold because of his respiratory status. The patient at this time will continue vancomycin pharmacy to dose target of 15. 2. Pneumonia. Currently on Zosyn and the vancomycin. Sputum with Destiny glabrata, likely a colonizer. Continue in supportive care. MMODL / IJN: [id number] / MTDD
[2017-07-17] MEDS: HYDROmorphone 2 MG/ML 1 ML SYRINGE IVP PRN ×3 (08:15→23:40)
--- NOTE | 2017-07-17 08:34 | XR ---
EXAMINATION TYPE: XR chest 1V DATE OF EXAM: 07/17/2017 COMPARISON: Prior chest x-ray 07/16/2017 and PET/CT 06/23/2017 HISTORY: Pneumonia TECHNIQUE: frontal view of the chest is obtained on 2 images FINDINGS: Bilateral upper lobe airspace disease is noted, suspect some volume loss right upper lobe. Perihilar airspace disease may be worsening in the interval. No evident pneumothorax. Blunting of th e costophrenic angles may be indicative of pleural effusions. Mediastinum appears somewhat widened si milar to prior exams. IMPRESSION: Correlate for volume overload, congestive heart failure, pneumonia and atelectasis, sarai a
[2017-07-17] MEDS: IPRATROPIUM-ALBUTEROL 3 ML NEB INHALATION SCH ×4 (08:58→20:14)
[2017-07-17] MEDS: METOPROLOL TARTRATE 25 MG TAB PO SCH ×2 (09:21→20:43)
[2017-07-17] MEDS: AMIODARONE 200 MG TAB PO SCH ×2 (09:21→20:43)
[2017-07-17] MEDS: BICALUTAMIDE 50 MG TAB PO SCH ×2 (09:21→20:43)
[2017-07-17] MEDS: PANTOPRAZOLE 40 MG TABLET PO SCH (09:21)
[2017-07-17] MEDS: CHOLESTYRAMINE (WITH SUGAR) 4 GM PACKET PO SCH ×2 (09:22→17:37)
[2017-07-17] MEDS: POTASSIUM CHLORIDE ER 20 MEQ TAB.ER PO SCH ×2 (09:22→10:21)
[2017-07-17] MEDS: PIPERACILLIN-TAZOBACTAM 3.375 GM in DEXTROSE/WATER 1 50ML.BAG IVPB SCH ×2 (09:24→20:43)
[2017-07-17 09:25] LABS: Glucose,Whole Blood 158 mg/dL (75-99)
[2017-07-17] MEDS ORDERED: VANCOMYCIN 1,750 MG in SODIUM CHLORIDE 0.9% 250 ML IVPB ONE (10:00)
--- NOTE | 2017-07-17 11:00 | P.PN ---
Subjective Progress Note Date: 07/17/17 Principal diagnosis: Acute MRSA sepsis and bacteremia. 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 This is a pleasant 81-year-old gentleman who resides at an extended care facility who has a history of coronary artery disease, paroxysmal atrial fibrillation, diabetes mellitus, hyperlipidemia, hypertension, shingles, MRSA infection in the blood and urine. 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 A recent PET scan revealed large hypermetabolic lesion presumed right-sided prostatic carcinoma there is also evidence of extra Chiller extension into the rectum and into the right pelvis causing osseous destruction of medial right MP a pelvic ramus near pubic symphysis. There is metastatic lesion to the liver as well. Patient was readmitted yesterday with fever and generalized weakness. Gentleman admitted to the regular medical floor with suspected urinary tract infection and sepsis. Last evening he developed bright red bleeding from the rectum approximately 50 MLS. He did have a drop in his systolic blood pressure into the 70s and 80s. His hemoglobin was 7.0. He was transferred here to the intensive care unit. He did not require any pressors. Did receive 2 units of packed red blood cells in his current hemoglobin is 8.6. White count 11.7. Creatinine 3.10. AST 158, ALT 106 Blood cultures are revealing presumptive MRSA. His chest x-ray shows mild fluid volume overload with small effusions. He is maintaining O2 saturations in the upper 90s on 2 L/m per nasal cannula. On 07/10/2017 patient is seen in follow-up on medical surgical floor. He developed an acute episode of respiratory distress, severe orthopnea, and acute dyspnea. His lab work today was reviewed, there is no evidence of leukocytosis , WBC is 7.7, hemoglobin is 8.1, his sodium is 133, his carbon dioxide was 18, his BUN is 55, and creatinine is 5.40. Nephrology has discussed initiation of hemodialysis with him today, patient is in agreement. His oxygenation requirements have increased, this morning he was on 2 L per nasal cannula with O2 sat at 97%, through the day and has deteriorated, and patient is not requiring 5-6 L per nasal cannula with O2 sat at 92-93%. Lung sounds are positive for coarse rales throughout the lung doan bilaterally. He remains afebrile. No other episodes of rectal bleeding was observed. Patient was actually due to start radiation therapy for his prostate cancer today, however in view of his worsening respiratory status, was put on hold. Stat chest x-ray was obtained, and shows worsening decompensated congestive heart failure and confluent pulmonary edema. 80 mg of Lasix IV was given, with no response, patient only made 10 mL of urine. Patient has been progressively more oliguric over the last few days. Has been complaining of worsening appetite and weakness. Dr. Escobedo was consulted for placement of hemodialysis catheter, patient is unable to lay down flat, patient may have to go on the BiPAP support and hemodialysis catheter may have to be placed in the femoral area. We will transfer the patient to the intensive care, and request Dr. Escobedo to place a hemodialysis catheter STEPHEN and initiate hemodialysis as soon as possible. On 07/11/2017 patient remains in the intensive care BiPAP support with pressures 12.5 and FiO2 40%. He had hemodialysis last night would removal of 3 L of fluid, he is scheduled for hemodialysis again today. Is moderately short of breath, lung sounds are positive for coarse rhonchi, rales. And to produce some urine, 10-20 mL per hour. Chest x-ray from 07/11/2017 has been reviewed and shows airspace disease consistent with CHF and pulmonary edema. Support was reviewed, WBCs are up to 14, hemoglobin is 9, serum sodium is 134, serum potassium is 4.1, B1 is 46, creatinine is 5.2, with CO2 of 17. Bilateral lower extremities positive for 1+ pitting edema. Patient was given 80 mg of Lasix with modest response, about 125 mL in the first hour after administration. Continues on ciprofloxacin for Pseudomonas in the urine, daptomycin for the positive blood cultures with MRSA. On 07/12/2017 patient is seen again in the intensive care. Wore the BiPAP mask intermittently last night, this morning he is on 6 L of oxygen, per high flow nasal cannula. Denies worsening dyspnea at rest, still using accessory abdominal muscles. Lung sounds are much improved from yesterday's exam, positive for a few scattered expiratory wheezes over posterior lower basis, but no rhonchi no rales auscultated. Last night patient went into atrial fibrillation with rapid ventricular rate with a rate of 1:30 to 140 BPM. Patient was started on Cardizem drip at 10 mg/hour. He had 2 L removed during hemodialysis yesterday evening, her symptoms. He was started on Lasix drip at 10 mg/hr per nephrology. His urine output has improved, averaging 60-100 mL per hour. Overall his net fluid balance is -2800 mL in the last 24 hours. He is currently having another hemodialysis treatment, with a target removal of 3 L today. Patient is hypotensive with systolic in the 70s and 80s, still tachycardic with a rate of 120-120 BPM. May have to restart vasopressor support with levophed. Chest x-ray from December 30 was reviewed and shows diffuse wheezes bilaterally, pulmonary edema versus diffuse pneumonia. Cultures are negative, patient has MRSA bacteremia, concern for possible endocarditis. Currently, covered with daptomycin. Cardiology is unable to proceed with CHASITY the view of patient's respiratory status. Continue oral Cipro for pseudomonal unit tract infection. Overall the patient states his breathing is easier today. The patient is seen again today 07/13/2017 in follow-up in the intensive care unit. He is awake and alert in no acute distress. He did have an episode of chest discomfort. EKG revealed no significant changes. He was given Dilaudid which his pain was relieved. The pain was somewhat atypical it was on the right side and reproducible with palpation. He is down to 5 L/m per nasal cannula to maintain O2 saturations in the 90s. He did not require BiPAP support last night. He had over 3 L removed yesterday via dialysis and another 4 L this morning. His chest x-ray continues to show bilateral infiltrates more so on the right upper lung. He is continued on a Lasix drip at 10 mg per hour. He remains in atrial fibrillation. He remains on amiodarone drip at 0.5 mg/ m. He was off the norepinephrine throughout the night. It was resumed early this morning during dialysis at 6 mcg/m. Currently down to 4 g. Follow-up blood cultures reveal no growth. Initial blood cultures were positive for MRSA. Urine was positive for Pseudomonas. He remains on daptomycin and Ciprofloxacillin. White count 20.0. Hemoglobin 7.6. Creatinine 3.90. His appetite is poor. He is drinking Ensure. On 07/14/2017 and seeing this patient for a follow-up. The patient is awake and alert. Currently is on 3 L of oxygen by nasal cannula. Chest x-ray still showing upper lobe consolidation bilaterally. The patient has some limited leukocytosis. The patient has no fever. The patient remains on daptomycin regarding previous MRSA septicemia. The patient underwent hemodialysis this morning with ultrafiltration. A total of 3.5 L of fluid was removed on today's ultrafiltration. During the time, the patient became more tachycardic with underlying atrial fibrillation rhythm. His current rate is around 120 irregular. His blood pressure is in the 110s and the patient has a map of above 65. He is currently on norepinephrine infusion at 2 mics. He is producing adequate amount of urine output in the order of more than 50 mL an hour and the patient is on Lasix drip at 10 mg an hour. The renal function is still impaired with a creatinine of 3.4. The patient is tolerating a sure. He is having loose bowel movements. No altered mentation at this point. No other significant events overnight. On 07/15/2017, them seeing this patient for a follow-up. Awake and alert. Chest x-ray still showing extensive consolidation of the upper lobes bilaterally. There is a concern of staphylococcal pneumonia and for that reason the daptomycin was discontinued and the patient was switched to IV vancomycin. The first dose will be given to him today. The patient remains pressor dependent at 5 mics of levo fed. The patient is on amiodarone orally and the patient remains in atrial fibrillation and at times is having rapid ventricular response. The highest heart rate has been between 120 and 1:30. The patient is producing adequate amount of urine output. He is on Lasix drip at 10 mg an hour. Nephrology is on the case. No recommendations for hemodialysis today. Repeat blood cultures of been sent. The patient is awake and alert and communicating. He requested a DNR/DNI CODE STATUS. He is having adequate bowel moments. He has loose soft liquidy BMs. His oral intake is minimal and is mainly relying on a sure shakes. No other significant events over the past 24 hours. He is quite weak and debilitated at this point. Reevaluated today on 07/16/2017, patient is feeling a bit better, pain seems to be a bit better controlled with Dilaudid, remains on antibiotics in the form of vancomycin and Zosyn, remains on 5-7 g of levo fed, patient looks chronically ill weak and debilitated. Remains also on Lasix drip. Labs were reviewed WBC count is 17.6, improving. Hemoglobin is 8, electrolytes are normal BUN is 52 creatinine is 4.0. Patient is still receiving daily dialysis mostly for fluid overload, remains nonoliguric and he remains on Lasix drip. Reevaluated today on 07/17/2017, patient supposedly had some deterioration in mental status last night, but does far as I'm concerned, his mental status has been the same all along over the last 2 days. At any rate code stroke was called, and patient underwent CT scanning of the brain which came back nondiagnostic. Patient seems to have what looks like to metabolic encephalopathy related to his multiple metabolic problems as listed below. Today the patient is about the same, he is lethargic, arousable, follows simple instructions, oriented to place and time. WBC count is 21.6 hemoglobin is 7.9 electrolytes were normal BUN is 54 creatinine 4.10, patient will likely be dialyzed again today. Chest x-ray is suggestive of fluid overload and upper lobe pneumonia bilaterally. Objective - Vital Signs Vital signs: Vital Signs Temp 98.2 F 07/17/17 04:00 Pulse 65 07/17/17 09:24 Resp 24 07/17/17 07:00 BP 102/42 07/17/17 07:00 Pulse Ox 99 07/17/17 09:01 Intake & Output 07/16/17 07/17/17 07/17/17 18:59 06:59 18:59 Intake Total 1525.627 344.062 57 Output Total 2620 186 25 Balance -1094.373 158.062 32 Weight 109.8 kg 108.9 kg Intake: IV 390.0 230 20 Furosemide 250 mg In 10 110 10 Sodium Chloride 0.9% 225 ml @ 10 MG/HR 10 mls/hr IVP .Q24H [facility] Rx#: [id number] Piperacillin-Tazobactam 3 50.0 .375 gm In Dextrose/Water 1 50ml.bag @ 12.5 mls/hr IVPB Q12HR [facility] Rx#: [id number] Sodium Chloride 0.9% 1, 80 120 10 000 ml @ 20 mls/hr IV . Q24H [facility] Rx#:[id number] Vancomycin 1,750 mg In 250 Sodium Chloride 0.9% 250 ml @ 125 mls/hr IVPB ONCE ONE Rx#:[id number] Intake, IV Titration 638.627 114.062 37 Amount Furosemide 250 mg In 232.5 Sodium Chloride 0.9% 225 ml @ 10 MG/HR 10 mls/hr IVP .Q24H [facility] Rx#: [id number] Insulin Regular 100 unit 22.064 In Sodium Chloride 0.9% 100 ml @ Per Protocol IV .Q0M [facility] Rx#:[id number] Norepinephrin 4 mg-0.9% 384.063 114.062 37 Ns Pmx 4 mg In 250 ml @ Titrate IV .Q0M [facility] Rx#: [id number] Oral 497 Output: Urine 720 185 25 Stool 1 Other 1900 Other: Voiding Method Indwelling Catheter Indwelling Catheter - Exam GENERAL EXAM: Lethargic, in no distress. Arousable and follows simple instructions. HEAD: Normocephalic. EYES: Normal reaction of pupils, equal size. NOSE: Clear with pink turbinates. THROAT: No erythema or exudates. NECK: No masses, no JVD. CHEST: No chest wall deformity. LUNGS: Equal air entry with crackles posterior bases. CVS: S1 and S2 normal with no audible murmur, irregular rhythm. ABDOMEN: No hepatosplenomegaly, normal bowel sounds, no guarding or rigidity. SPINE: No scoliosis or deformity SKIN: No rashes CENTRAL NERVOUS SYSTEM: Lethargic, follows simple instructions, intermittently confused according the nurses. EXTREMITIES: There is bilateral peripheral edema. No clubbing, no cyanosis. Peripheral pulses are intact. - Labs CBC & Chem 7: 07/17/17 04:30 07/17/17 04:30 Labs: Abnormal Lab Results - Last 24 Hours (Table) 07/16/17 07/16/17 07/16/17 Range/Units 12:07 16:12 20:00 WBC (3.8-10.6) k/uL RBC (4.30-5.90) m/uL Hgb (13.0-17.5) gm/dL Hct (39.0-53.0) % MCHC (31.0-37.0) g/dL RDW (11.5-15.5) % Neutrophils # (1.3-7.7) k/uL Eosinophils # (0-0.7) k/uL INR (<1.2) Carbon Dioxide (22-30) mmol/L BUN (9-20) mg/dL Creatinine (0.66-1.25) mg/dL Glucose (74-99) mg/dL POC Glucose (mg/dL) 183 H 168 H 141 H (75-99) mg/dL Calcium (8.4-10.2) mg/dL Phosphorus (2.5-4.5) mg/dL Total Creatine Kinase (55-170) U/L Troponin I (0.000-0.034) ng/mL Total Protein (6.3-8.2) g/dL Albumin (3.5-5.0) g/dL 07/17/17 07/17/17 07/17/17 Range/Units 00: 01: 01:22 WBC 19.8 H (3.8-10.6) k/uL RBC 3.06 L (4.30-5.90) m/uL Hgb 8.1 L (13.0-17.5) gm/dL Hct 27.4 L (39.0-53.0) % MCHC 29.4 L (31.0-37.0) g/dL RDW 16.9 H (11.5-15.5) % Neutrophils # 16.0 H (1.3-7.7) k/uL Eosinophils # 1.5 H (0-0.7) k/uL INR 1.2 H (<1.2) Carbon Dioxide (22-30) mmol/L BUN (9-20) mg/dL Creatinine (0.66-1.25) mg/dL Glucose (74-99) mg/dL POC Glucose (mg/dL) 167 H (75-99) mg/dL Calcium (8.4-10.2) mg/dL Phosphorus (2.5-4.5) mg/dL Total Creatine Kinase (55-170) U/L Troponin I (0.000-0.034) ng/mL Total Protein (6.3-8.2) g/dL Albumin (3.5-5.0) g/dL 07/17/17 07/17/17 07/17/17 Range/Units 01: 01:22 03:48 WBC (3.8-10.6) k/uL RBC (4.30-5.90) m/uL Hgb (13.0-17.5) gm/dL Hct (39.0-53.0) % MCHC (31.0-37.0) g/dL RDW (11.5-15.5) % Neutrophils # (1.3-7.7) k/uL Eosinophils # (0-0.7) k/uL INR (<1.2) Carbon Dioxide (22-30) mmol/L BUN 51 H (9-20) mg/dL Creatinine 4.00 H (0.66-1.25) mg/dL Glucose 139 H (74-99) mg/dL POC Glucose (mg/dL) 152 H (75-99) mg/dL Calcium 7.9 L (8.4-10.2) mg/dL Phosphorus (2.5-4.5) mg/dL Total Creatine Kinase <20 L (55-170) U/L Troponin I 0.046 H* (0.000-0.034) ng/mL Total Protein 5.3 L (6.3-8.2) g/dL Albumin 2.3 L (3.5-5.0) g/dL 07/17/17 07/17/17 07/17/17 Range/Units 04:30 04:30 09:21 WBC 21.6 H (3.8-10.6) k/uL RBC 3.02 L (4.30-5.90) m/uL Hgb 7.9 L (13.0-17.5) gm/dL Hct 27.5 L (39.0-53.0) % MCHC 28.6 L (31.0-37.0) g/dL RDW 15.8 H (11.5-15.5) % Neutrophils # 17.3 H (1.3-7.7) k/uL Eosinophils # 1.3 H (0-0.7) k/uL INR (<1.2) Carbon Dioxide 21 L (22-30) mmol/L BUN 54 H (9-20) mg/dL Creatinine 4.10 H (0.66-1.25) mg/dL Glucose 142 H (74-99) mg/dL POC Glucose (mg/dL) 158 H (75-99) mg/dL Calcium 8.1 L (8.4-10.2) mg/dL Phosphorus 5.4 H (2.5-4.5) mg/dL Total Creatine Kinase (55-170) U/L Troponin I (0.000-0.034) ng/mL Total Protein (6.3-8.2) g/dL Albumin (3.5-5.0) g/dL Microbiology - Last 24 Hours (Table) 07/14/17 10:21 Blood Culture - Preliminary Blood No Growth after 48 hours 07/14/17 10:14 Blood Culture - Preliminary Blood No Growth after 48 hours 07/14/17 08:02 Gram Stain - Final Sputum Sputum Culture - Final Destiny glabrata Assessment and Plan Assessment: #1 metastatic prostate cancer with skeletal and liver involvement. The tumor itself is extended locally to involve the rectal wall and causing mass effect on the rectum. The patient a candidate for systemic chemotherapy. Consideration was given for palliative radiation therapy however this has not been done as the patient became quite ill and he went into acute hypoxic respiratory failure. Note that the PET scan of the whole body showed a Large hypermetabolic lesion of right-sided prostatic carcinoma with evidence of extra capsular extension into the rectum and into the right pelvis causing osseous distraction of medial right inferior pelvic ramus near pubic symphysis. Metastatic lesion to the liver. #2 Acute rectal bleeding secondary to invading prostate mass. Status post 2 units of packed red blood cell infusions. Current hemoglobin 8.0 #3 Sepsis secondary to MRSA bacteremia. There is a concern for infective endocarditis knowing that the possible mitral valve vegetation. Estimated ejection fraction was around 30%. #4 Acute on chronic renal failure, requiring recent daily hemodialysis. Current creatinine 3.6. #5 acute hypoxic history failure with extensive upper lobe consolidation. Patient improved with hemodialysis ultrafiltration. Nevertheless he continues to have leukocytosis and there is extensive consolidation of the upper lobes bilaterally. He is on IV Zosyn. Concern for MRSA pneumonia is there and based on that the patient will be switched to vancomycin. #6 chronic atrial fibrillation with rapid response currently on an amiodarone orally 400 mg 3 times a day. The patient on a candidate for anticoagulation. #7 Coronary artery disease. #8 Diabetes mellitus. Recurrent on insulin drip for blood sugar control at the rate of 1.5 units an hour #9 Hyperlipidemia. #10 Hypertension. #11 congestion heart failure with ejection fraction of 30% and concern for mitral valve vegetation/endocarditis #12 hypotension currently on few mics of levo fed for hemodynamic support him a rule out secondary to underlying septicemia #13 extensive lower extremities edema and signs of fluid overload. The patient is improving in terms of the fluid balance the patient is currently on lisinopril 10 mg an hour. Daily dialysis and ultrafiltration is also being done #14 anemia, multifactorial. He was stable at 7.9 #15 poor baseline performance and functional status and the patient is a [facility] resident. Cor status is DNR/DNI #16 history of shingles. #17 acute urinary tract infection secondary to pseudomonas aeruginosa, patient remains on Zosyn. Recommendation: Continue vancomycin, continue Zosyn, continue Lasix and dialysis , continue treatment of atrial fibrillation as per cardiology, continue to wean pressors if possible, patient is presently on 5 g of norepinephrine. Patient remains critically ill, and critical care time is 35 minutes. Not quite ready for any discharge planning for transfer out of the ICU at this point. Overall prognosis seems to be very poor, patient remains DO NOT RESUSCITATE as per his own wishes. Time with Patient: Greater than 30
[2017-07-17 12:19] LABS: Glucose,Whole Blood 96 mg/dL (75-99)
[2017-07-17] MEDS: MIDODRINE 5 MG TAB PO PRN (12:35)
[2017-07-17] MEDS: POTASSIUM CHLORIDE ORAL LIQUID 40 MEQ/30 ML CUP PO SCH (12:36)
--- NOTE | 2017-07-17 12:41 | PN ---
PROGRESS NOTE Mr. Leslie is an 81-year-old male who presented with evidence of bleeding related to prostate cancer. He had atrial fibrillation, renal failure. He is back in sinus mechanism, but there is some decrease in the mentation. His blood pressure remains borderline. He is on a low dose norepinephrine. There is no evidence of tachy arrhythmia. He is scheduled to undergo dialysis. He continues to be at this time on amiodarone 400 mg 3 times a day, Lasix IV, and metoprolol 25 mg twice a day. PHYSICAL EXAMINATION: Blood pressure 102/40 with the heart rate in the 60s. LUNGS: Decreased breath sound bilaterally. No wheezes. HEART: Regular rate and rhythm, S1, S2. No S3. No rub. ABDOMEN: Soft, nontender. Positive bowel sounds. EXTREMITIES: 1+ edema. LAB DATA: Lab data revealed a hemoglobin of 7.9. BUN and creatinine 54 and 4.1. Potassium 3.9. IMPRESSION: 1. Prostate cancer, metastatic. 2. Paroxysmal fibrillation, back in sinus mechanism. 3. Renal failure. 4. Gastrointestinal bleeding related to the malignancy. 5. Probable metabolic encephalopathy. 6. Cardiomyopathy of unclear etiology. 7. History of diabetes. 8. Hypotension, stable. 9. Anemia. RECOMMENDATION: From the cardiac standpoint, I will cut down the dose of his oral amiodarone. Continue rest of his medical regimen. Unfortunately the prognosis remains quite poor. Will continue supportive care. MMRADHAL / OCTAVIO: [id number] /
[2017-07-17] MEDS ORDERED: TERBUTALINE FOR EXTRAVASATION 1 MG/ML VIAL SQ STA (13:23)
[2017-07-17 17:00] LABS: Glucose,Whole Blood 160 mg/dL (75-99)
[2017-07-17] MEDS: FUROSEMIDE 250 MG in SODIUM CHLORIDE 0.9% 225 ML IVP SCH (17:19)
[2017-07-17] MEDS: FUROSEMIDE 10 MG/ML 10 ML VIAL IV SCH ×2 (17:19→23:40)
[2017-07-17] MEDS: NOREPINEPHRIN 4 MG-0.9% NS PMX 4 MG/250 ML ML IV SCH (17:38)
[2017-07-17 19:56] LABS: Glucose,Whole Blood 184 mg/dL (75-99)
--- NOTE | 2017-07-17 21:59 | PN ---
PROGRESS NOTE DATE OF SERVICE: 07/17/2017. ATTENDING NOTE: The patient seen and examined by me. I discussed with my nurse practitioner, Ms. Hammond. Patient remains in the ICU, earlier today was taken off the Lasix drip, still on Levophed. The patient was hemodialyzed yesterday, 1.9 L was removed. Still remains a bit short of breath. Oral intake does not remain good. Weak and tired. Remains in the ICU. EXAMINATION: Temperature 97.5, pulse 58, respirations 20, blood pressure 98/34, pulse ox 97% on 2L. Sitting on bed, tired-appearing, answering questions. LUNGS: Decreased breath sounds. Some crackles. Edema present. ABDOMEN: Soft. INVESTIGATIONS: White count 21.6, hemoglobin 7.9. Potassium 3.9. Accu-Cheks are noted. ASSESSMENT: Multiple medical problems including methicillin-resistant Staphylococcus aureus, congestive heart failure, acute respiratory failure, on hemodialysis and metastatic prostate cancer. Prognosis remains poor. Overall, patient may be transferred for a permanent catheter placement. Will really need to determine if the patient should be long-term hemodialysis, given overall prognosis not being good. Will await further input from my colleagues. Antibiotics still on board. Will discuss with Dr. Browning. Prognosis poor. MMODL / IJN: [id number] /
--- NOTE | 2017-07-17 22:14 | PN ---
PROGRESS NOTE DATE OF SERVICE: 07/17/2017 REASON FOR FOLLOWUP: MRSA bacteremia and pneumonia. INTERVAL HISTORY: The patient is afebrile. He is breathing slightly comfortably. The patient is still requiring low-dose pressor for support of his blood pressure. Denies significant chest pain. Mild cough, not bringing up any sputum. No abdominal pain. No diarrhea. EXAMINATION: Blood pressure 101/35 with a pulse of 68, temperature of 98.1. He is 95% on 3L nasal cannula. General description is an elderly male lying in bed in no distress. HEENT: Pallor. No scleral icterus. Oral mucous membranes dry. LUNGS: Unlabored breathing with coarse breath sounds at the bases. HEART: S1, S2. Regular rate and rhythm. ABDOMEN: Soft. No tenderness. LABS: Hemoglobin 7.8, white count 1.6 with a BUN of 54, creatinine 4.10. Blood culture repeat has been negative. DIAGNOSTIC IMPRESSION AND PLAN: 1. Patient with methicillin-resistant Staphylococcus aureus bacteremia with concern for possible endocarditis. Repeat blood culture has been negative with a component of pneumonia. 2. The patient also developed end-stage renal failure and is getting dialysis. 3. Currently being maintained on Zosyn and vancomycin will be continued. Overall prognosis remains to be guarded. Continue supportive care. MMODL / IJN: [id number] /
[2017-07-17 23:38] LABS: Glucose,Whole Blood 268 mg/dL (75-99)
[2017-07-17 23:53] LABS: Glucose,Whole Blood 232 mg/dL (75-99)
[2017-07-18 04:05] LABS: Glucose,Whole Blood 173 mg/dL (75-99)
[2017-07-18] MEDS: INSULIN ASPART 100 UNIT/ML 1 ML 10 ML VIAL SQ SCH ×5 (04:14→21:33)
[2017-07-18 04:37] LABS: Anisocytosis Slight; Basophils % (A) 0 %; Eosinophils # (A) 0.6 k/uL (0-0.7); Eosinophils % (A) 4 %; HCT 24.7 % (39.0-53.0); HGB 7.5 gm/dL (13.0-17.5); Hypochromasia Marked; Lymphocytes # (A) 1.1 k/uL (1.0-4.8); Lymphocytes % (A) 7 %; MCH 26.6 pg (25.0-35.0); MCHC 30.3 g/dL (31.0-37.0); MCV 87.7 fL (80.0-100.0); Mean Platelet Volume 7.9; Monocytes # (A) 0.7 k/uL (0-1.0); Monocytes % (A) 5 %; Neutrophils # (A) 12.2 k/uL (1.3-7.7); Neutrophils % (A) 83 %; Platelet Count 177 k/uL (150-450); Poikilocytosis Slight; RBC 2.81 m/uL (4.30-5.90); RDW 16.7 % (11.5-15.5); WBC 14.7 k/uL (3.8-10.6)
[2017-07-18 04:59] LABS: Phosphorus 4.6 mg/dL (2.5-4.5); Potassium 3.7 mmol/L (3.5-5.1)
[2017-07-18] MEDS: NOREPINEPHRIN 4 MG-0.9% NS PMX 4 MG/250 ML ML IV SCH ×2 (05:13→11:57)
--- NOTE | 2017-07-18 07:51 | XR ---
EXAMINATION TYPE: XR chest 1V DATE OF EXAM: 07/18/2017 COMPARISON: Prior chest x-ray 07/17/2017 HISTORY: Pneumonia TECHNIQUE: Single frontal view of the chest is obtained. FINDINGS: Findings are similar to previous exam. IMPRESSION: Correlate for pneumonia, atelectasis or edema. Follow-up recommended.
[2017-07-18] MEDS: IPRATROPIUM-ALBUTEROL 3 ML NEB INHALATION SCH ×4 (08:03→20:30)
[2017-07-18] MEDS ORDERED: LIDOCAINE 2% INJ 20 MG/ML SQ ONE (08:52)
[2017-07-18 09:31] LABS: Glucose,Whole Blood 196 mg/dL (75-99)
--- NOTE | 2017-07-18 09:37 | XR ---
EXAMINATION TYPE: XR chest 1V portable DATE OF EXAM: 07/18/2017 COMPARISON: Prior chest x-ray same date earlier time HISTORY: PICC line placement TECHNIQUE: Single frontal view of the chest is obtained. FINDINGS: Interval placement of a right-sided PICC line. Distal tip is overlying the region of the c avoatrial junction. No evident pneumothorax. IMPRESSION: No evident complication status post PICC line placement.
[2017-07-18] MEDS: PIPERACILLIN-TAZOBACTAM 3.375 GM in DEXTROSE/WATER 1 50ML.BAG IVPB SCH ×2 (09:38→21:45)
[2017-07-18] MEDS: PANTOPRAZOLE 40 MG TABLET PO SCH (09:38)
[2017-07-18] MEDS: FUROSEMIDE 10 MG/ML 10 ML VIAL IV SCH ×2 (09:38→21:34)
[2017-07-18] MEDS: BICALUTAMIDE 50 MG TAB PO SCH ×2 (09:38→21:34)
[2017-07-18] MEDS: AMIODARONE 200 MG TAB PO SCH ×2 (09:38→21:33)
[2017-07-18] MEDS: METOPROLOL TARTRATE 25 MG TAB PO SCH ×2 (09:39→21:32)
[2017-07-18] MEDS: POTASSIUM CHLORIDE ORAL LIQUID 40 MEQ/30 ML CUP PO SCH (09:39)
[2017-07-18] MEDS: CHOLESTYRAMINE (WITH SUGAR) 4 GM PACKET PO SCH ×2 (09:48→16:33)
--- NOTE | 2017-07-18 10:13 | IR ---
EXAMINATION TYPE: IR cvc insert >=5 years DATE OF EXAM: 07/18/2017 COMPARISON: NONE HISTORY: Infection needs long-term intravenous access for antibiotics FINDINGS: Maximal barrier technique was utilized. The skin overlying the vein was localized with ult rasound and noted to be compressible and patent by ultrasound. An ultrasound image was obtained and submitted on patient's chart. Sterile technique utilized with the ultrasound machine. The skin overly ing was prepped and draped and Lidocaine used for local anesthesia. A skin naomy was made with a scal pel. Access was gained to the vein under direct ultrasound guidance with a 21-gauge needle and a 0.0 18 inch wire was advanced. Access site was dilated with a peel-away sheath and the catheter tailored to length. Catheter advanced centrally and a post procedure chest x-ray verified placement, cathete r withdrawn approximately 2 cm so that the tip is at the cavoatrial junction. Catheter was fixed to the skin with suture and a sterile dressing placed. Hemostasis achieved and the catheter was aspirat ed and flushed with sterile saline. The patient remained in stable condition. IMPRESSION: STATUS POST ULTRASOUND GUIDED PICC LINE PLACEMENT, READY FOR USE. THIS PROCEDURE WAS PER FORMED BY THE UNDERSIGNED.
[2017-07-18] MEDS: HYDROmorphone 2 MG/ML 1 ML SYRINGE IVP PRN ×2 (10:28→17:58)
--- NOTE | 2017-07-18 11:06 | P.PN ---
Subjective Patient is seen in follow-up for acute kidney injury on chronic kidney disease. He is currently receiving daily dialysis mostly for fluid overload. Urine output has been about 5 mL an hour. Oral intake is fair. Denies vomiting. Denies chest pain. Last dialysis was yesterday with 2.9 L ultrafiltration. Currently requiring 5 mics of levofed. Vital signs are stable. General: The patient appeared well nourished and normally developed. HEENT: Head exam is unremarkable. Neck is without jugular venous distension. LUNGS: Lungs are clear to auscultation and percussion. Breath sounds decreased. HEART: Rate and Rhythm are regular. First and second heart sounds normal. No murmurs, rubs or gallops. ABDOMEN: Abdominal exam reveals normal bowel sounds. Non-tender and non- distended. No evidence of peritonitis. EXTREMITITES: 1+ edema. Objective - Vital Signs Vital signs: Vital Signs Temp 97.6 F 07/18/17 08:00 Pulse 104 H 07/18/17 10:00 Resp 25 H 07/18/17 10:00 BP 95/48 07/18/17 10:00 Pulse Ox 94 L 07/18/17 10:00 Intake & Output 07/17/17 07/18/17 07/18/17 18:59 06:59 18:59 Intake Total 1381.0 592.313 218.5 Output Total 3008 78 29 Balance -1627.0 514.313 189.5 Weight 108.4 kg Intake: IV 510.0 150.0 47.5 Furosemide 250 mg In 10 10 Sodium Chloride 0.9% 225 ml @ 10 MG/HR 10 mls/hr IVP .Q24H [facility] Rx#: [id number] Piperacillin-Tazobactam 3 50.0 50.0 12.5 .375 gm In Dextrose/Water 1 50ml.bag @ 12.5 mls/hr IVPB Q12HR [facility] Rx#: [id number] Sodium Chloride 0.9% 1, 200 90 35 000 ml @ 20 mls/hr IV . Q24H [facility] Rx#:[id number] Vancomycin 1,750 mg In 250 Sodium Chloride 0.9% 250 ml @ 125 mls/hr IVPB ONCE ONE Rx#:[id number] Intake, IV Titration 151 202.313 171 Amount Norepinephrin 4 mg-0.9% 151 202.313 171 Ns Pmx 4 mg In 250 ml @ Titrate IV .Q0M [facility] Rx#: [id number] Oral 720 240 Output: Urine 106 76 25 Stool 2 2 4 Other 2900 Other: Voiding Method Indwelling Catheter Indwelling Catheter Indwelling Catheter # Bowel Movements 1 1 - Labs CBC & Chem 7: 07/18/17 04:03 07/18/17 04:03 Labs: Abnormal Lab Results - Last 24 Hours (Table) 07/17/17 07/17/17 07/17/17 Range/Units 16:58 19:53 23:37 WBC (3.8-10.6) k/uL RBC (4.30-5.90) m/uL Hgb (13.0-17.5) gm/dL Hct (39.0-53.0) % MCHC (31.0-37.0) g/dL RDW (11.5-15.5) % Neutrophils # (1.3-7.7) k/uL Sodium (137-145) mmol/L BUN (9-20) mg/dL Creatinine (0.66-1.25) mg/dL Glucose (74-99) mg/dL POC Glucose (mg/dL) 160 H 184 H 268 H (75-99) mg/dL Calcium (8.4-10.2) mg/dL Phosphorus (2.5-4.5) mg/dL 07/17/17 07/18/17 07/18/17 Range/Units 23:51 04:02 04:03 WBC 14.7 H (3.8-10.6) k/uL RBC 2.81 L (4.30-5.90) m/uL Hgb 7.5 L (13.0-17.5) gm/dL Hct 24.7 L (39.0-53.0) % MCHC 30.3 L (31.0-37.0) g/dL RDW 16.7 H (11.5-15.5) % Neutrophils # 12.2 H (1.3-7.7) k/uL Sodium (137-145) mmol/L BUN (9-20) mg/dL Creatinine (0.66-1.25) mg/dL Glucose (74-99) mg/dL POC Glucose (mg/dL) 232 H 173 H (75-99) mg/dL Calcium (8.4-10.2) mg/dL Phosphorus (2.5-4.5) mg/dL 07/18/17 07/18/17 Range/Units 04:03 09:30 WBC (3.8-10.6) k/uL RBC (4.30-5.90) m/uL Hgb (13.0-17.5) gm/dL Hct (39.0-53.0) % MCHC (31.0-37.0) g/dL RDW (11.5-15.5) % Neutrophils # (1.3-7.7) k/uL Sodium 135 L (137-145) mmol/L BUN 48 H (9-20) mg/dL Creatinine 4.00 H (0.66-1.25) mg/dL Glucose 166 H (74-99) mg/dL POC Glucose (mg/dL) 196 H (75-99) mg/dL Calcium 8.0 L (8.4-10.2) mg/dL Phosphorus 4.6 H (2.5-4.5) mg/dL Microbiology - Last 24 Hours (Table) 07/14/17 10:21 Blood Culture - Preliminary Blood No Growth after 72 hours 07/14/17 10:14 Blood Culture - Preliminary Blood No Growth after 72 hours Assessment and Plan Plan: Assessment: #1. Acute kidney injury on chronic kidney disease now hemodialysis dependent. 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 He had dialysis yesterday with 2.9 L ultrafiltration. #2. Volume overload. Improved with ultrafiltration. #3. Anemia of chronic kidney disease maintained on Aranesp. #4. Metabolic acidosis secondary to acute kidney injury. Improved with dialysis. #5. MRSA bacteremia with question of endocarditis. Maintained on antibiotics per infectious disease recommendations. #6. Hypotension maintained on 5 mics of levofed. #7. 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 Plan: Continue with daily dialysis for now. Maintain Lasix 80 mg IV twice daily. Midodrine 10 mg prior to dialysis. Wean vasopressors. Monitor bicarb. May need to add oral supplementation. Prognosis guarded. Patient currently has a groin catheter for dialysis, which is highly likely to get infected. I discussed with the nurse that he should get the PermCath placed in the next day or two so the groin catheter should be discontinued. Vascular surgery will be notified.
[2017-07-18 12:07] LABS: Glucose,Whole Blood 239 mg/dL (75-99)
--- NOTE | 2017-07-18 12:14 | P.PN ---
Subjective Progress Note Date: 07/18/17 Principal diagnosis: Acute MRSA sepsis and bacteremia. 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 This is a pleasant 81-year-old gentleman who resides at an extended care facility who has a history of coronary artery disease, paroxysmal atrial fibrillation, diabetes mellitus, hyperlipidemia, hypertension, shingles, MRSA infection in the blood and urine. 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 A recent PET scan revealed large hypermetabolic lesion presumed right-sided prostatic carcinoma there is also evidence of extra Chiller extension into the rectum and into the right pelvis causing osseous destruction of medial right MP a pelvic ramus near pubic symphysis. There is metastatic lesion to the liver as well. Patient was readmitted yesterday with fever and generalized weakness. Gentleman admitted to the regular medical floor with suspected urinary tract infection and sepsis. Last evening he developed bright red bleeding from the rectum approximately 50 MLS. He did have a drop in his systolic blood pressure into the 70s and 80s. His hemoglobin was 7.0. He was transferred here to the intensive care unit. He did not require any pressors. Did receive 2 units of packed red blood cells in his current hemoglobin is 8.6. White count 11.7. Creatinine 3.10. AST 158, ALT 106 Blood cultures are revealing presumptive MRSA. His chest x-ray shows mild fluid volume overload with small effusions. He is maintaining O2 saturations in the upper 90s on 2 L/m per nasal cannula. On 07/10/2017 patient is seen in follow-up on medical surgical floor. He developed an acute episode of respiratory distress, severe orthopnea, and acute dyspnea. His lab work today was reviewed, there is no evidence of leukocytosis , WBC is 7.7, hemoglobin is 8.1, his sodium is 133, his carbon dioxide was 18, his BUN is 55, and creatinine is 5.40. Nephrology has discussed initiation of hemodialysis with him today, patient is in agreement. His oxygenation requirements have increased, this morning he was on 2 L per nasal cannula with O2 sat at 97%, through the day and has deteriorated, and patient is not requiring 5-6 L per nasal cannula with O2 sat at 92-93%. Lung sounds are positive for coarse rales throughout the lung doan bilaterally. He remains afebrile. No other episodes of rectal bleeding was observed. Patient was actually due to start radiation therapy for his prostate cancer today, however in view of his worsening respiratory status, was put on hold. Stat chest x-ray was obtained, and shows worsening decompensated congestive heart failure and confluent pulmonary edema. 80 mg of Lasix IV was given, with no response, patient only made 10 mL of urine. Patient has been progressively more oliguric over the last few days. Has been complaining of worsening appetite and weakness. Dr. Escobedo was consulted for placement of hemodialysis catheter, patient is unable to lay down flat, patient may have to go on the BiPAP support and hemodialysis catheter may have to be placed in the femoral area. We will transfer the patient to the intensive care, and request Dr. Escobedo to place a hemodialysis catheter STEPHEN and initiate hemodialysis as soon as possible. On 07/11/2017 patient remains in the intensive care BiPAP support with pressures 12.5 and FiO2 40%. He had hemodialysis last night would removal of 3 L of fluid, he is scheduled for hemodialysis again today. Is moderately short of breath, lung sounds are positive for coarse rhonchi, rales. And to produce some urine, 10-20 mL per hour. Chest x-ray from 07/11/2017 has been reviewed and shows airspace disease consistent with CHF and pulmonary edema. Support was reviewed, WBCs are up to 14, hemoglobin is 9, serum sodium is 134, serum potassium is 4.1, B1 is 46, creatinine is 5.2, with CO2 of 17. Bilateral lower extremities positive for 1+ pitting edema. Patient was given 80 mg of Lasix with modest response, about 125 mL in the first hour after administration. Continues on ciprofloxacin for Pseudomonas in the urine, daptomycin for the positive blood cultures with MRSA. On 07/12/2017 patient is seen again in the intensive care. Wore the BiPAP mask intermittently last night, this morning he is on 6 L of oxygen, per high flow nasal cannula. Denies worsening dyspnea at rest, still using accessory abdominal muscles. Lung sounds are much improved from yesterday's exam, positive for a few scattered expiratory wheezes over posterior lower basis, but no rhonchi no rales auscultated. Last night patient went into atrial fibrillation with rapid ventricular rate with a rate of 1:30 to 140 BPM. Patient was started on Cardizem drip at 10 mg/hour. He had 2 L removed during hemodialysis yesterday evening, her symptoms. He was started on Lasix drip at 10 mg/hr per nephrology. His urine output has improved, averaging 60-100 mL per hour. Overall his net fluid balance is -2800 mL in the last 24 hours. He is currently having another hemodialysis treatment, with a target removal of 3 L today. Patient is hypotensive with systolic in the 70s and 80s, still tachycardic with a rate of 120-120 BPM. May have to restart vasopressor support with levophed. Chest x-ray from December 30 was reviewed and shows diffuse wheezes bilaterally, pulmonary edema versus diffuse pneumonia. Cultures are negative, patient has MRSA bacteremia, concern for possible endocarditis. Currently, covered with daptomycin. Cardiology is unable to proceed with CHASITY the view of patient's respiratory status. Continue oral Cipro for pseudomonal unit tract infection. Overall the patient states his breathing is easier today. The patient is seen again today 07/13/2017 in follow-up in the intensive care unit. He is awake and alert in no acute distress. He did have an episode of chest discomfort. EKG revealed no significant changes. He was given Dilaudid which his pain was relieved. The pain was somewhat atypical it was on the right side and reproducible with palpation. He is down to 5 L/m per nasal cannula to maintain O2 saturations in the 90s. He did not require BiPAP support last night. He had over 3 L removed yesterday via dialysis and another 4 L this morning. His chest x-ray continues to show bilateral infiltrates more so on the right upper lung. He is continued on a Lasix drip at 10 mg per hour. He remains in atrial fibrillation. He remains on amiodarone drip at 0.5 mg/ m. He was off the norepinephrine throughout the night. It was resumed early this morning during dialysis at 6 mcg/m. Currently down to 4 g. Follow-up blood cultures reveal no growth. Initial blood cultures were positive for MRSA. Urine was positive for Pseudomonas. He remains on daptomycin and Ciprofloxacillin. White count 20.0. Hemoglobin 7.6. Creatinine 3.90. His appetite is poor. He is drinking Ensure. On 07/14/2017 and seeing this patient for a follow-up. The patient is awake and alert. Currently is on 3 L of oxygen by nasal cannula. Chest x-ray still showing upper lobe consolidation bilaterally. The patient has some limited leukocytosis. The patient has no fever. The patient remains on daptomycin regarding previous MRSA septicemia. The patient underwent hemodialysis this morning with ultrafiltration. A total of 3.5 L of fluid was removed on today's ultrafiltration. During the time, the patient became more tachycardic with underlying atrial fibrillation rhythm. His current rate is around 120 irregular. His blood pressure is in the 110s and the patient has a map of above 65. He is currently on norepinephrine infusion at 2 mics. He is producing adequate amount of urine output in the order of more than 50 mL an hour and the patient is on Lasix drip at 10 mg an hour. The renal function is still impaired with a creatinine of 3.4. The patient is tolerating a sure. He is having loose bowel movements. No altered mentation at this point. No other significant events overnight. On 07/15/2017, them seeing this patient for a follow-up. Awake and alert. Chest x-ray still showing extensive consolidation of the upper lobes bilaterally. There is a concern of staphylococcal pneumonia and for that reason the daptomycin was discontinued and the patient was switched to IV vancomycin. The first dose will be given to him today. The patient remains pressor dependent at 5 mics of levo fed. The patient is on amiodarone orally and the patient remains in atrial fibrillation and at times is having rapid ventricular response. The highest heart rate has been between 120 and 1:30. The patient is producing adequate amount of urine output. He is on Lasix drip at 10 mg an hour. Nephrology is on the case. No recommendations for hemodialysis today. Repeat blood cultures of been sent. The patient is awake and alert and communicating. He requested a DNR/DNI CODE STATUS. He is having adequate bowel moments. He has loose soft liquidy BMs. His oral intake is minimal and is mainly relying on a sure shakes. No other significant events over the past 24 hours. He is quite weak and debilitated at this point. Reevaluated today on 07/16/2017, patient is feeling a bit better, pain seems to be a bit better controlled with Dilaudid, remains on antibiotics in the form of vancomycin and Zosyn, remains on 5-7 g of levo fed, patient looks chronically ill weak and debilitated. Remains also on Lasix drip. Labs were reviewed WBC count is 17.6, improving. Hemoglobin is 8, electrolytes are normal BUN is 52 creatinine is 4.0. Patient is still receiving daily dialysis mostly for fluid overload, remains nonoliguric and he remains on Lasix drip. Reevaluated today on 07/17/2017, patient supposedly had some deterioration in mental status last night, but does far as I'm concerned, his mental status has been the same all along over the last 2 days. At any rate code stroke was called, and patient underwent CT scanning of the brain which came back nondiagnostic. Patient seems to have what looks like to metabolic encephalopathy related to his multiple metabolic problems as listed below. Today the patient is about the same, he is lethargic, arousable, follows simple instructions, oriented to place and time. WBC count is 21.6 hemoglobin is 7.9 electrolytes were normal BUN is 54 creatinine 4.10, patient will likely be dialyzed again today. Chest x-ray is suggestive of fluid overload and upper lobe pneumonia bilaterally. Patient was reevaluated today on 07/18/2017, today he seems better than he has been over the last 1 week. Seems to be more awake, more alert, follows all simple instructions, in no form of respiratory distress. Patient was seen by nephrology, and they are recommending a permanent dialysis catheter to be placed however patient may decline having such procedure, I believe a family meeting would have to be organized and final decision would have to be made whether to proceed with permanent hemodialysis are not considering the patient' s all other medical issues and morbidities. Family and the patient may consider comfort care measures, and if not I believe we should proceed with permanent dialysis catheter placement. Chest x-ray today is showing some improvement in his bilateral upper lobe disease, CBC was reviewed WBC count is 14.7 hemoglobin is 7.5. Basic metabolic profile is normal BUN is 48 creatinine is 4.0, patient is scheduled to undergo dialysis again today. Objective - Vital Signs Vital signs: Vital Signs Temp 97.3 F L 07/18/17 12:00 Pulse 94 07/18/17 12:00 Resp 24 07/18/17 12:00 BP 86/41 07/18/17 12:00 Pulse Ox 100 07/18/17 12:00 Intake & Output 07/17/17 07/18/17 07/18/17 18:59 06:59 18:59 Intake Total 1381.0 592.313 284.75 Output Total 3008 78 49 Balance -1627.0 514.313 235.75 Weight 108.4 kg Intake: IV 510.0 150.0 82.5 Furosemide 250 mg In 10 10 Sodium Chloride 0.9% 225 ml @ 10 MG/HR 10 mls/hr IVP .Q24H [facility] Rx#: [id number] Piperacillin-Tazobactam 3 50.0 50.0 37.5 .375 gm In Dextrose/Water 1 50ml.bag @ 12.5 mls/hr IVPB Q12HR [facility] Rx#: [id number] Sodium Chloride 0.9% 1, 200 90 45 000 ml @ 20 mls/hr IV . Q24H [facility] Rx#:[id number] Vancomycin 1,750 mg In 250 Sodium Chloride 0.9% 250 ml @ 125 mls/hr IVPB ONCE ONE Rx#:[id number] Intake, IV Titration 151 202.313 202.25 Amount Norepinephrin 4 mg-0.9% 151 202.313 202.25 Ns Pmx 4 mg In 250 ml @ Titrate IV .Q0M [facility] Rx#: [id number] Oral 720 240 Output: Urine 106 76 45 Stool 2 2 4 Other 2900 Other: Voiding Method Indwelling Catheter Indwelling Catheter Indwelling Catheter # Bowel Movements 1 1 - Exam GENERAL EXAM: Awake, alert, in no distress, follows simple instructions. HEAD: Normocephalic. EYES: Normal reaction of pupils, equal size. NOSE: Clear with pink turbinates. THROAT: No erythema or exudates. NECK: No masses, no JVD. CHEST: No chest wall deformity. LUNGS: Equal air entry with crackles posterior bases. CVS: S1 and S2 normal with no audible murmur, irregular rhythm. ABDOMEN: No hepatosplenomegaly, normal bowel sounds, no guarding or rigidity. SPINE: No scoliosis or deformity SKIN: No rashes CENTRAL NERVOUS SYSTEM: Alert oriented and definitely less confused today compared to baseline. EXTREMITIES: There is bilateral peripheral edema. No clubbing, no cyanosis. Peripheral pulses are intact. - Labs CBC & Chem 7: 07/18/17 04:03 07/18/17 04:03 Labs: Abnormal Lab Results - Last 24 Hours (Table) 07/17/17 07/17/17 07/17/17 Range/Units 16:58 19:53 23:37 WBC (3.8-10.6) k/uL RBC (4.30-5.90) m/uL Hgb (13.0-17.5) gm/dL Hct (39.0-53.0) % MCHC (31.0-37.0) g/dL RDW (11.5-15.5) % Neutrophils # (1.3-7.7) k/uL Sodium (137-145) mmol/L BUN (9-20) mg/dL Creatinine (0.66-1.25) mg/dL Glucose (74-99) mg/dL POC Glucose (mg/dL) 160 H 184 H 268 H (75-99) mg/dL Calcium (8.4-10.2) mg/dL Phosphorus (2.5-4.5) mg/dL 07/17/17 07/18/17 07/18/17 Range/Units 23:51 04:02 04:03 WBC 14.7 H (3.8-10.6) k/uL RBC 2.81 L (4.30-5.90) m/uL Hgb 7.5 L (13.0-17.5) gm/dL Hct 24.7 L (39.0-53.0) % MCHC 30.3 L (31.0-37.0) g/dL RDW 16.7 H (11.5-15.5) % Neutrophils # 12.2 H (1.3-7.7) k/uL Sodium (137-145) mmol/L BUN (9-20) mg/dL Creatinine (0.66-1.25) mg/dL Glucose (74-99) mg/dL POC Glucose (mg/dL) 232 H 173 H (75-99) mg/dL Calcium (8.4-10.2) mg/dL Phosphorus (2.5-4.5) mg/dL 07/18/17 07/18/17 07/18/17 Range/Units 04:03 09:30 12:05 WBC (3.8-10.6) k/uL RBC (4.30-5.90) m/uL Hgb (13.0-17.5) gm/dL Hct (39.0-53.0) % MCHC (31.0-37.0) g/dL RDW (11.5-15.5) % Neutrophils # (1.3-7.7) k/uL Sodium 135 L (137-145) mmol/L BUN 48 H (9-20) mg/dL Creatinine 4.00 H (0.66-1.25) mg/dL Glucose 166 H (74-99) mg/dL POC Glucose (mg/dL) 196 H 239 H (75-99) mg/dL Calcium 8.0 L (8.4-10.2) mg/dL Phosphorus 4.6 H (2.5-4.5) mg/dL Microbiology - Last 24 Hours (Table) 07/14/17 10:21 Blood Culture - Preliminary Blood No Growth after 72 hours 07/14/17 10:14 Blood Culture - Preliminary Blood No Growth after 72 hours Assessment and Plan Assessment: #1 metastatic prostate cancer with skeletal and liver involvement. The tumor itself is extended locally to involve the rectal wall and causing mass effect on the rectum. The patient may be a a candidate for systemic chemotherapy. Consideration was given for palliative radiation therapy however this has not been done as the patient became quite ill and he went into acute hypoxic respiratory failure. Note that the PET scan of the whole body showed a Large hypermetabolic lesion of right-sided prostatic carcinoma with evidence of extra capsular extension into the rectum and into the right pelvis causing osseous distraction of medial right inferior pelvic ramus near pubic symphysis. Metastatic lesion to the liver. #2 Acute rectal bleeding secondary to invading prostate mass. Status post 2 units of packed red blood cell infusions. Current hemoglobin 8.0 #3 Sepsis secondary to MRSA bacteremia. There is a concern for infective endocarditis knowing that the possible mitral valve vegetation. Estimated ejection fraction was around 30%. #4 Acute on chronic renal failure, requiring recent daily hemodialysis. Current creatinine 3.6. #5 acute hypoxic history failure with extensive upper lobe consolidation. Patient improved with hemodialysis ultrafiltration. Nevertheless he continues to have leukocytosis and there is extensive consolidation of the upper lobes bilaterally. He is on IV Zosyn. Concern for MRSA pneumonia is there and based on that the patient will be switched to vancomycin. #6 chronic atrial fibrillation with rapid response currently on an amiodarone orally 400 mg 3 times a day. The patient on a candidate for anticoagulation. #7 Coronary artery disease. #8 Diabetes mellitus. Recurrent on insulin drip for blood sugar control at the rate of 1.5 units an hour #9 Hyperlipidemia. #10 Hypertension. #11 congestion heart failure with ejection fraction of 30% and concern for mitral valve vegetation/endocarditis #12 hypotension currently on few mics of levo fed for hemodynamic support him a rule out secondary to underlying septicemia #13 extensive lower extremities edema and signs of fluid overload. The patient is improving in terms of the fluid balance the patient is currently on lisinopril 10 mg an hour. Daily dialysis and ultrafiltration is also being done #14 anemia, multifactorial. He was stable at 7.9 #15 poor baseline performance and functional status and the patient is a prison resident. Cor status is DNR/DNI #16 history of shingles. #17 acute urinary tract infection secondary to pseudomonas aeruginosa, patient remains on Zosyn. Recommendation: Continue vancomycin, continue Zosyn, continue Lasix and dialysis , continue treatment of atrial fibrillation as per cardiology, continue to wean pressors if possible, patient is presently on 5 g of norepinephrine. The issue of permanent hemodialysis is being considered, I think I would leave that up to the patient and his family to decide whether to proceed with that or not. Considering his multiple comorbidities and his terminal disease/metastatic prostate cancer with significant involvement of his rectal wall and mass effect on the rectum, may have to consider comfort care measures if the patient and family are willing. We will continue to follow in the meantime in the ICU. Time with Patient: Less than 30
--- NOTE | 2017-07-18 13:08 | P.PN ---
Progress Note - Text Progress Note Date: 07/18/17 Mr. Leslie has developed renal failure, for which he is undergoing dialysis. His urine output has diminished significantly. He has received a Lupron injection, and is taking daily Casodex for his prostate cancer. Under sterile conditions, I changed his 12 Croatian coud tip Ramesh catheter. The catheter was then irrigated to confirm proper catheter position and patency.
[2017-07-18] MEDS: MIDODRINE 5 MG TAB PO PRN (13:16)
[2017-07-18] MEDS: DARBEPOETIN ALFA 40 MCG/0.4 ML SYRINGE SQ SCH (13:16)
--- NOTE | 2017-07-18 13:48 | PN ---
PROGRESS NOTE Mr. Leslie is an 81-year-old male who was found to have evidence of prostate cancer with malignancy, who presented with bleeding, who had episode of atrial fibrillation with rapid ventricular response. Yesterday, he was noted to be in sinus mechanism. Today, he is having paroxysmal sinus mechanism with the atrial fibrillation, but his rate is controlled when he is in atrial fibrillation. He appears to be more awake and following commands today. His breathing has been stable. He underwent dialysis today. There is further discussion that will be made with the family according to Dr. Browning's note regarding the plan and how aggressive to be. Patient has not been anticoagulated because of GI bleeding that brought him in. He has evidence of cardiomyopathy noted on his echocardiogram. His medication at this time includes amiodarone 400 mg twice a day, furosemide 80 mg IV q.8 hours, metoprolol tartrate 25 mg twice a day. He continues to be on low-dose norepinephrine. His blood pressure is running in the 100 with a heart rate in 90s, lungs was mild decrease in breath sounds with a few crackles. HEART: Irregular, regular, S1, S2. No S3 with systolic murmur. Abdomen is soft, nontender. EXTREMITIES: +1 edema bilaterally. LAB DATA: Hemoglobin 7.5, BUN and creatinine 48 and 4.0. IMPRESSION: 1. Paroxysmal atrial fibrillation, not anticoagulated because of gastrointestinal bleeding. 2. Metastatic prostate cancer with evidence of mets to the liver. 3. Renal failure. 4. Anemia. 5. Cardiomyopathy. From the cardiac standpoint, will continue on the present dose of amiodarone. Unfortunately, the prognosis remains quite poor in view of the multiorgan issues. Will await the input of the Critical Care Team regarding the long-term plan after consultation with the Oncology. MMODL / IJN: [id number] /
[2017-07-18] MEDS ORDERED: NOREPINEPHRIN 16 MG-0.9%NS PMX 16 MG/250 ML ML IV SCH (15:45)
[2017-07-18] MEDS ORDERED: HEPARIN SODIUM,PORCINE 5,000 UNIT/ML 1 ML VIAL ONE (15:55)
[2017-07-18 15:58] LABS: Glucose,Whole Blood 171 mg/dL (75-99)
--- NOTE | 2017-07-18 19:05 | P.PN ---
Progress Note - Text Progress Note Date: 07/17/17 DATE OF SERVICE: 07/17/2017 PRESENTING COMPLAINT: Shortness of breath HISTORY OF PRESENT ILLNESS: 81-year-old male resident of [facility] with multiple medical problems who presented with fever and generalized weakness, admitted to the regular medical floor with a suspected UTI infection and sepsis.Patient developed bright red blood per rectum and his systolic blood pressure dropped into the 70s and 80s. Hemoglobin was 7.0. Transferred to the ICU. Received 2 units of packed red cells. Elevated kidney function requiring placement of a temporary hemodialysis catheter and hemodialysis has been initiated by nephrology. Became increasingly more short of breath requiring BiPAP support. Has received multiple doses of Lasix, continues to be on and off the BiPAP, Cardizem drip initiated to help control heart rate, Lasix drip initiated to help diurese the patient, receives Levophed for blood pressure support. Has MRSA bacteremia concerns for possible endocarditis however patient is unable to lie flat for CHASITY. Has metastatic prostate cancer with involvement of the rectum causing a GI bleed. INTERVAL HISTORY: 07/17/2017: Patient lying in bed leaning over to the left side of the bed tired appearing complains of pain. Remains on 3 L nasal cannula, afebrile, converted to sinus rhythm yesterday, heart rate remains under control, antibiotic therapy continues for MRSA septicemia hemodialysis scheduled for today as they were unsuccessful yesterday and taking off the full amount. Today's session they had much difficulty with the catheter, TPA placed in the catheter and an attempt will be made to try and dialyze the patient tomorrow if unsuccessful consideration needs to be given to placement of a new dialysis catheter. Levophed continues at 4 g, Lasix drip at 10 mL, appetite is poor is only drinking his ensure shakes. 07/16/2017: Patient lying in bed and is tired appearing, having increasing complaints of pain. Remains on 3 L nasal cannula, afebrile,remains tachycardic, antibiotic therapy continues for MRSA septicemia, hemodialysis later today. Levophed continues at 6 g, insulin drip discontinued, Lasix drip at 10 ml. Appetite poor primarily drinks his ensure shakes. Antibiotics continue in the form of Zosyn and vancomycin. 07/15/2017: Patient lying in bed appears tired today complaining to his left side, remains on 3 L nasal cannula, afebrile, antibiotic therapy continues for MRSA septicemia. Next hemodialysis will be performed on Sunday. Continues to be tachycardic is on and off the Levophed at 5 g an hour for blood pressure support, Lasix drip continues at 10 mg an hour, renal function remains impaired but does have good urine output. Poor appetite, takes primarily his ensure shakes. Antibiotic therapy in the form of Zosyn and vancomycin. Last BM 201707/14/2017: Patient lying in bed, breathing easier. Remains on 3 L nasal cannula, afebrile , antibiotic therapy continues for MRSA septicemia. Hemodialysis done today with 3.5 L removed, patient did become more tachycardic during the procedure. His baseline rate is about 120 beats a minute irregular, blood pressure is in the 110s, Levophed infusion at 2 mics a minute, Lasix drip continues at 10 mg an hour, renal function continues to be impaired. Appetite is poor, does drink his ensure. 07/13/2017: Patient lying in bed receiving hemodialysis, breathing is somewhat easier, heart rate remains elevated. Had an episode of chest discomfort and received Dilaudid which relieved his pain. Pain was located on the right side of the chest and reproducible with palpation. Remains on 5 L nasal cannula did not require any BiPAP support overnight. Hemodialysis was successful removing 3 L of fluid yesterday patient is scheduled for another round of hemodialysis today. Lasix drip continues at 10 mg an hour, remains in atrial fibrillation amiodarone drip at 0.5 mg a minute, norepinephrine was on and off throughout the night. Currently at 4 g. Follow-up blood cultures negative for growth. Remains on daptomycin and ciprofloxacin. REVIEW OF SYSTEMS: Done for constitutional ,cardiovascular, GI, pulmonary with relevant findings as above. CURRENT MEDICATIONS Acetaminophen, [place], DuoNeb, amiodarone 400 mg by mouth 3 times a day, Casodex 50 g by mouth twice a day, Questran 4 g by mouth twice a day, , Aranesp 40 g subcu every 7 days, Colace, Lasix 250 mg at 10 mL an hour, Dilaudid 0.5 mg IV push every 4 hours, Ativan 1 mg IV every 4 hours when necessary, melatonin 3 mg by mouth at bedtime, Levophed 4 milligrams in 250 mL IV piggyback, Protonix 40 mg by mouth daily, Ultram 50 g by mouth 4 times a day,, vancomycin, Zosyn MiraLAX. PHYSICAL EXAM VITAL SIGNS: Temperature 98.3, pulse 116, respiratory rate 19, blood pressure 95/50, oxygen saturation 100% on 3 L. GENERAL APPEARANCE: Lying in bed, tired appearing short of breath. EYES: Pupils equal. Conjunctiva normal. NECK: JVD not raised. Mass not palpable. RESPIRATORY: Respiratory effort increased. Diminished bilaterally basilar crackles. CARDIOVASCULAR: First and second sounds irregular. Moderate edema. ABDOMEN: Soft. Liver and spleen not palpable. No tenderness. No mass palpable. PSYCHIATRY: Alert and oriented x3. Mood and affect somewhat anxious appearing. INVESTIGATIONS: LABS: White blood cell count 17.6, BUN 52, creatinine 4.00, Accu-Cheks noted. Chest x-ray: bilateral upper lobe air space disease persists heart is enlarged, perihilar increased density also noted. No evident pneumothorax. ASSESSMENT: -Methicillin-resistant Staphylococcus aeruginosa bacteremia with suspicion for underlying endocarditis, pending transesophageal echocardiogram -Possible staphylococcal lung infection/MRSA pneumonia secondary to chest x-ray findings to the upper lobe apices -Volume overload, multifactorial, slow to respond -Anemia, multifactorial, including that of chronic kidney disease and some blood loss, stable at 8.2 -Metabolic acidosis from acute kidney injury, -Acute kidney injury from acute tubular necrosis, including hypertension. -Chronic kidney disease, prostate leak from nephrosclerosis. -Hypotensive shock. Possibly cardiogenic. The patient is on and off of Levophed. -Persistent atrial fibrillation, uncontrolled on IV amiodarone. -Metastatic prostate cancer with involvement of the bone including the inferior pubic rami, liver on PET scan, and the rectum causing rectal bleeding. The patient is getting palliative radiation treatment and Casodex. -Acute blood loss anemia from gastrointestinal bleed from metastatic prostate cancer to the rectum, having received 2 units packed red blood cells. -Diabetes mellitus type 2 on insulin drip -Hypertension, history of. -Hyperlipidemia. -Acute congestive heart failure from systolic dysfunction ejection fraction 30- 35% could be arrhythmia reduced, slow to respond -Acute hypoxic respiratory failure status post ventilator support, patient currently on 6 L of oxygen, slow to respond -Acute renal failure, likely acute tubular necrosis, now requiring hemodialysis , slow to respond -Acute urinary tract infection with Pseudomonas, status post antibiotic, resolved -CODE STATUS: No code PLAN: Antibiotic therapy continues Zosyn and vancomycin we'll follow labs closely to monitor kidney function. Continues to be on and off the Levophed drip. IV Lasix drip continues, patient has increasing pain, IV Dilaudid switched to every 2 hours. Patient may require an placement of a new dialysis catheter, social work informed team of family request for a meeting regarding patient's overall prognosis/options. We'll discuss with oncology, ICU, nephrology and arrange for a time that we will be suitable. Overall prognosis continues to be quite poor particularly with multiple comorbidities and metastatic prostate cancer. Plan of care discussed with the patient the bedside we will follow closely. SLEEVE PRESSER OPERATOR statement: Patient was seen and examined by nurse practitioner Beth Hammond and all elements of the case discussed with attending Dr. Ortiz
--- NOTE | 2017-07-18 19:45 | P.PN ---
Progress Note - Text Progress Note Date: 07/18/17 DATE OF SERVICE: 07/18/2017 PRESENTING COMPLAINT: Shortness of breath HISTORY OF PRESENT ILLNESS: 81-year-old male resident of [facility] on the [place] with multiple medical problems who presented with fever and generalized weakness, admitted to the regular medical floor with a suspected UTI infection and sepsis.Patient developed bright red blood per rectum and his systolic blood pressure dropped into the 70s and 80s. Hemoglobin was 7.0. Transferred to the ICU. Received 2 units of packed red cells. Elevated kidney function requiring placement of a temporary hemodialysis catheter and hemodialysis has been initiated by nephrology. Became increasingly more short of breath requiring BiPAP support. Has received multiple doses of Lasix, continues to be on and off the BiPAP, Cardizem drip initiated to help control heart rate, Lasix drip initiated to help diurese the patient, receives Levophed for blood pressure support. Has MRSA bacteremia concerns for possible endocarditis however patient is unable to lie flat for CHASITY. Has metastatic prostate cancer with involvement of the rectum causing a GI bleed. INTERVAL HISTORY: 07/18/2017: Lying in bed,status post dialysis catheter placement, previous catheter was clogged attempts made to declog it and were unsuccessful, receiving dialysis. Remains on 3 L nasal cannula, afebrile, remains in sinus rhythm rate in the low 100s,Ramesh catheter needed to be changed and was performed by urology this morning, antibiotic therapy continues for MRSA septicemia, continues to have hypotension requiring the use of pressors, Lasix drip was discontinued, appetite is poor eating very little of his meals but drinking his ensure shakes. 07/17/2017: Patient lying in bed leaning over to the left side of the bed tired appearing complains of pain. Remains on 3 L nasal cannula, afebrile, converted to sinus rhythm yesterday, heart rate remains under control, antibiotic therapy continues for MRSA septicemia hemodialysis scheduled for today as they were unsuccessful yesterday and taking off the full amount. Today's session they had much difficulty with the catheter, TPA placed in the catheter and an attempt will be made to try and dialyze the patient tomorrow if unsuccessful consideration needs to be given to placement of a new dialysis catheter. Levophed continues at 4 g, Lasix drip at 10 mL, appetite is poor is only drinking his ensure shakes. 07/16/2017: Patient lying in bed and is tired appearing, having increasing complaints of pain. Remains on 3 L nasal cannula, afebrile,remains tachycardic, antibiotic therapy continues for MRSA septicemia, hemodialysis later today. Levophed continues at 6 g, insulin drip discontinued, Lasix drip at 10 ml. Appetite poor primarily drinks his ensure shakes. Antibiotics continue in the form of Zosyn and vancomycin. 07/15/2017: Patient lying in bed appears tired today complaining to his left side, remains on 3 L nasal cannula, afebrile, antibiotic therapy continues for MRSA septicemia. Next hemodialysis will be performed on Sunday. Continues to be tachycardic is on and off the Levophed at 5 g an hour for blood pressure support, Lasix drip continues at 10 mg an hour, renal function remains impaired but does have good urine output. Poor appetite, takes primarily his ensure shakes. Antibiotic therapy in the form of Zosyn and vancomycin. Last BM 201707/14/2017: Patient lying in bed, breathing easier. Remains on 3 L nasal cannula, afebrile , antibiotic therapy continues for MRSA septicemia. Hemodialysis done today with 3.5 L removed, patient did become more tachycardic during the procedure. His baseline rate is about 120 beats a minute irregular, blood pressure is in the 110s, Levophed infusion at 2 mics a minute, Lasix drip continues at 10 mg an hour, renal function continues to be impaired. Appetite is poor, does drink his ensure. 07/13/2017: Patient lying in bed receiving hemodialysis, breathing is somewhat easier, heart rate remains elevated. Had an episode of chest discomfort and received Dilaudid which relieved his pain. Pain was located on the right side of the chest and reproducible with palpation. Remains on 5 L nasal cannula did not require any BiPAP support overnight. Hemodialysis was successful removing 3 L of fluid yesterday patient is scheduled for another round of hemodialysis today. Lasix drip continues at 10 mg an hour, remains in atrial fibrillation amiodarone drip at 0.5 mg a minute, norepinephrine was on and off throughout the night. Currently at 4 g. Follow-up blood cultures negative for growth. Remains on daptomycin and ciprofloxacin. REVIEW OF SYSTEMS: Done for constitutional ,cardiovascular, GI, pulmonary with relevant findings as above. CURRENT MEDICATIONS Acetaminophen, DuoNeb, amiodarone 400 mg by mouth 3 twice a day, Casodex 50 g by mouth twice a day, Questran 4 g by mouth twice a day, , Aranesp 40 g subcu every 7 days, Colace, Lasix 80 mg IV twice a day, Dilaudid 0.5 mg IV push every hours, Ativan 1 mg IV every 4 hours when necessary, melatonin 3 mg by mouth at bedtime, Levophed 4 milligrams in 250 mL IV piggyback, Protonix 40 mg by mouth daily, Ultram 50 g by mouth 4 times a day, Zosyn MiraLAX. PHYSICAL EXAM VITAL SIGNS: temperature 97.6, pulse 83, respiratory rate 19, blood pressure 116/58,oxygen saturation 99% on 3 L GENERAL APPEARANCE: Lying in bed, tired appearing short of breath. HEENT: Pupils equal. Conjunctiva normal. JVD not raised. Mass not palpable. RESPIRATORY: Respiratory effort increased. Diminished bilaterally basilar crackles. CARDIOVASCULAR: First and second sounds irregular. Moderate edema. ABDOMEN: Soft. Liver and spleen not palpable. No tenderness. No mass palpable. PSYCHIATRY: Alert and oriented x3. Mood and affect somewhat anxious appearing. INTEGUMENT: Right groin dialysis catheter, right upper arm PICC line . INVESTIGATIONS: LABS: .White blood cell count 14.7, hemoglobin 7.5,sodium 135, BUN 48, creatinine 4.00, Accu-Cheks noted. Chest x-ray: correlate for pneumonia atelectasis or edema ASSESSMENT: -Methicillin-resistant Staphylococcus aeruginosa bacteremia with suspicion for underlying endocarditis, pending transesophageal echocardiogram -Possible staphylococcal lung infection/MRSA pneumonia secondary to chest x-ray findings to the upper lobe apices -Volume overload, multifactorial, slow to respond -Anemia, multifactorial, including that of chronic kidney disease and some blood loss, stable at 8.2 -Metabolic acidosis from acute kidney injury, improved with dialysis -Acute kidney injury from acute tubular necrosis, including hypertension. -Chronic kidney disease, prostate leak from nephrosclerosis. -Hypotensive shock. Possibly cardiogenic. The patient is on and off of Levophed. -Persistent atrial fibrillation, uncontrolled on IV amiodarone. -Metastatic prostate cancer with involvement of the bone including the inferior pubic rami, liver on PET scan, and the rectum causing rectal bleeding. The patient is getting palliative radiation treatment and Casodex. -Acute blood loss anemia from gastrointestinal bleed from metastatic prostate cancer to the rectum, having received 2 units packed red blood cells. -Diabetes mellitus type 2 on insulin drip -Hypertension, history of. -Hyperlipidemia. -Acute congestive heart failure from systolic dysfunction ejection fraction 30- 35% could be arrhythmia reduced, slow to respond -Acute hypoxic respiratory failure status post ventilator support, patient currently on 6 L of oxygen, slow to respond -Acute renal failure, likely acute tubular necrosis, now requiring hemodialysis , slow to respond -Acute urinary tract infection with Pseudomonas, status post antibiotic, resolved -CODE STATUS: No code PLAN: Antibiotic therapy continues Zosyn. Continues to be on and off the Levophed drip. IV Lasix continues, Patient may require an placement of a new dialysis catheter due to the current location of this one risk for infection. Vascular surgery is been notified. Overall prognosis continues to be quite poor particularly with multiple comorbidities and metastatic prostate cancer. Plan of care discussed with the patient the bedside we will follow closely. CIVIL ENGINEERING PROFESSOR statement: Patient was seen and examined by nurse practitioner Beth Hammond and all elements of the case discussed with attending Dr. Ortiz
[2017-07-18 20:12] LABS: Glucose,Whole Blood 157 mg/dL (75-99)
--- NOTE | 2017-07-18 20:15 | PN ---
PROGRESS NOTE DATE OF SERVICE: 07/18/2017 ATTENDING NOTE: Patient was seen and examined by me. I discussed with nurse practitioner Ms Hammond. Patient remains in the ICU, has been on Levophed drip. The hemodialysis was there; with blood pressure running over 88 systolic unable to remove any fluid. Patient did receive his midodrine. Remains tired, short of breath. PHYSICAL EXAMINATION: Temperature 97.3, pulse 94, respiration 24, blood pressure 86/41, pulse ox 100% on 3 L. Sitting on bed, tired-appearing. LUNGS: Decreased breath sounds. Some crackles. Edema present. Answering simple questions. INVESTIGATIONS: White count 14.7, hemoglobin 7.5, potassium 3.7, BUN 48, creatinine 4.0. Accu-Cheks are noted. ASSESSMENT: Multiple medical problems. Blood pressure is running low in spite of being on Levophed. Unable to do dialysis today. Spoke with Dr. Mcallister in the morning, Dr. Titus from Cardiology, Dr. Browning from Pulmonary. Prognosis remains poor. I did talk to the patient yet again, and at this point we will continue the treatment plan. If things were to go worse, hospice to be strongly considered. No other family is present right now. Patient is doing poorly. MMODL / IJN: [id number] /
--- NOTE | 2017-07-18 21:39 | PN ---
PROGRESS NOTE DATE OF SERVICE: 07/18/2017 REASON FOR FOLLOWUP: MRSA bacteremia, likely endocarditis and pneumonia. INTERVAL HISTORY: The patient is afebrile. He is still complaining of some shortness of breath and did have very minimal cough, but not bringing up any sputum. No chest pain. No abdominal pain and no diarrhea. EXAMINATION: Blood pressure is 120/61 with a pulse of 91, temperature of 98. He is 99% on 2L nasal cannula. General description is an elderly male lying in bed in no distress. RESPIRATORY SYSTEM: Unlabored breathing with decreased breath sounds at the bases. HEART: S1, S2. Regular rate and rhythm. ABDOMEN: Soft. No tenderness. EXTREMITIES: Some trace edema of feet. LABS: Hemoglobin 7.5, white count of 14.7 with a BUN of 48. Creatinine is 4.0. Blood culture repeat has been negative. DIAGNOSTIC IMPRESSION AND PLAN: Patient with an methicillin-resistant Staphylococcus aureus bacteremia, concern for possible viral endocarditis. Unfortunately CHASITY couldnt be done because of his respiratory status. Currently on vancomycin, Pharmacy to dose, as well as Zosyn with concern of underlying pneumonia. The patient did have overall improvement in white count down to 14, 000 foot with repeat blood culture remaining to be negative. Family present at bedside. Their questions were answered. MMODL / IJN: [id number] / IRENE
[2017-07-19 00:19] LABS: Glucose,Whole Blood 178 mg/dL (75-99)
[2017-07-19] MEDS: INSULIN ASPART 100 UNIT/ML 1 ML 10 ML VIAL SQ SCH ×7 (00:22→23:35)
[2017-07-19] MEDS: HYDROmorphone 2 MG/ML 1 ML SYRINGE IVP PRN ×3 (01:10→20:24)
[2017-07-19 04:04] LABS: Glucose,Whole Blood 137 mg/dL (75-99)
[2017-07-19 05:03] LABS: Anisocytosis Slight; Basophils % (A) 0 %; Eosinophils # (A) 1.1 k/uL (0-0.7); Eosinophils % (A) 10 %; HCT 23.6 % (39.0-53.0); HGB 7.2 gm/dL (13.0-17.5); Hypochromasia Marked; Lymphocytes # (A) 1.1 k/uL (1.0-4.8); Lymphocytes % (A) 10 %; MCH 26.4 pg (25.0-35.0); MCHC 30.4 g/dL (31.0-37.0); MCV 86.9 fL (80.0-100.0); Mean Platelet Volume 7.6; Monocytes # (A) 0.5 k/uL (0-1.0); Monocytes % (A) 4 %; Neutrophils # (A) 8.3 k/uL (1.3-7.7); Neutrophils % (A) 74 %; Platelet Count 150 k/uL (150-450); Poikilocytosis Slight; RBC 2.72 m/uL (4.30-5.90); RDW 16.6 % (11.5-15.5); WBC 11.1 k/uL (3.8-10.6)
[2017-07-19 05:08] LABS: Calcium 7.9 mg/dL (8.4-10.2); Phosphorus 4.5 mg/dL (2.5-4.5); Potassium 3.5 mmol/L (3.5-5.1)
[2017-07-19 05:13] LABS: Vancomycin,Random 22.4 ug/mL
[2017-07-19] MEDS ORDERED: POTASSIUM CHLORIDE ER 20 MEQ TAB.ER PO STA (06:05)
[2017-07-19 08:14] LABS: Glucose,Whole Blood 143 mg/dL (75-99)
[2017-07-19] MEDS: IPRATROPIUM-ALBUTEROL 3 ML NEB INHALATION SCH ×4 (08:52→19:27)
--- NOTE | 2017-07-19 09:23 | XR ---
EXAMINATION TYPE: XR chest 1V DATE OF EXAM: 07/19/2017 COMPARISON: 07/18/2017 HISTORY: Cough TECHNIQUE: Single frontal view of the chest is obtained. FINDINGS: Bilateral areas of consolidation and pleural effusion stable. PICC line stable tip overlyi ng the right atrium. Hypertrophic change of the spine. Heart size stable. Atherosclerotic change aort a. IMPRESSION: 1. Bilateral diffuse airspace disease.
[2017-07-19] MEDS: CHOLESTYRAMINE (WITH SUGAR) 4 GM PACKET PO SCH ×2 (09:47→17:26)
[2017-07-19] MEDS: PANTOPRAZOLE 40 MG TABLET PO SCH (09:47)
[2017-07-19] MEDS: POTASSIUM CHLORIDE ORAL LIQUID 40 MEQ/30 ML CUP PO SCH (09:47)
[2017-07-19] MEDS: BICALUTAMIDE 50 MG TAB PO SCH ×2 (09:47→20:23)
[2017-07-19] MEDS: AMIODARONE 200 MG TAB PO SCH ×2 (09:57→20:23)
[2017-07-19] MEDS: MEGESTROL 400 MG/10 ML CUP PO SCH (09:58)
[2017-07-19] MEDS: MIDODRINE 5 MG TAB PO PRN (09:58)
[2017-07-19] MEDS: PIPERACILLIN-TAZOBACTAM 3.375 GM in DEXTROSE/WATER 1 50ML.BAG IVPB SCH ×2 (09:59→20:31)
--- NOTE | 2017-07-19 10:43 | P.PN ---
Subjective Progress Note Date: 07/19/17 Principal diagnosis: Acute MRSA sepsis and bacteremia. 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 This is a pleasant 81-year-old gentleman who resides at an extended care facility who has a history of coronary artery disease, paroxysmal atrial fibrillation, diabetes mellitus, hyperlipidemia, hypertension, shingles, MRSA infection in the blood and urine. 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 A recent PET scan revealed large hypermetabolic lesion presumed right-sided prostatic carcinoma there is also evidence of extra Chiller extension into the rectum and into the right pelvis causing osseous destruction of medial right MP a pelvic ramus near pubic symphysis. There is metastatic lesion to the liver as well. Patient was readmitted yesterday with fever and generalized weakness. Gentleman admitted to the regular medical floor with suspected urinary tract infection and sepsis. Last evening he developed bright red bleeding from the rectum approximately 50 MLS. He did have a drop in his systolic blood pressure into the 70s and 80s. His hemoglobin was 7.0. He was transferred here to the intensive care unit. He did not require any pressors. Did receive 2 units of packed red blood cells in his current hemoglobin is 8.6. White count 11.7. Creatinine 3.10. AST 158, ALT 106 Blood cultures are revealing presumptive MRSA. His chest x-ray shows mild fluid volume overload with small effusions. He is maintaining O2 saturations in the upper 90s on 2 L/m per nasal cannula. On 07/10/2017 patient is seen in follow-up on medical surgical floor. He developed an acute episode of respiratory distress, severe orthopnea, and acute dyspnea. His lab work today was reviewed, there is no evidence of leukocytosis , WBC is 7.7, hemoglobin is 8.1, his sodium is 133, his carbon dioxide was 18, his BUN is 55, and creatinine is 5.40. Nephrology has discussed initiation of hemodialysis with him today, patient is in agreement. His oxygenation requirements have increased, this morning he was on 2 L per nasal cannula with O2 sat at 97%, through the day and has deteriorated, and patient is not requiring 5-6 L per nasal cannula with O2 sat at 92-93%. Lung sounds are positive for coarse rales throughout the lung doan bilaterally. He remains afebrile. No other episodes of rectal bleeding was observed. Patient was actually due to start radiation therapy for his prostate cancer today, however in view of his worsening respiratory status, was put on hold. Stat chest x-ray was obtained, and shows worsening decompensated congestive heart failure and confluent pulmonary edema. 80 mg of Lasix IV was given, with no response, patient only made 10 mL of urine. Patient has been progressively more oliguric over the last few days. Has been complaining of worsening appetite and weakness. Dr. Escobedo was consulted for placement of hemodialysis catheter, patient is unable to lay down flat, patient may have to go on the BiPAP support and hemodialysis catheter may have to be placed in the femoral area. We will transfer the patient to the intensive care, and request Dr. Escobedo to place a hemodialysis catheter STEPHEN and initiate hemodialysis as soon as possible. On 07/11/2017 patient remains in the intensive care BiPAP support with pressures 12.5 and FiO2 40%. He had hemodialysis last night would removal of 3 L of fluid, he is scheduled for hemodialysis again today. Is moderately short of breath, lung sounds are positive for coarse rhonchi, rales. And to produce some urine, 10-20 mL per hour. Chest x-ray from 07/11/2017 has been reviewed and shows airspace disease consistent with CHF and pulmonary edema. Support was reviewed, WBCs are up to 14, hemoglobin is 9, serum sodium is 134, serum potassium is 4.1, B1 is 46, creatinine is 5.2, with CO2 of 17. Bilateral lower extremities positive for 1+ pitting edema. Patient was given 80 mg of Lasix with modest response, about 125 mL in the first hour after administration. Continues on ciprofloxacin for Pseudomonas in the urine, daptomycin for the positive blood cultures with MRSA. On 07/12/2017 patient is seen again in the intensive care. Wore the BiPAP mask intermittently last night, this morning he is on 6 L of oxygen, per high flow nasal cannula. Denies worsening dyspnea at rest, still using accessory abdominal muscles. Lung sounds are much improved from yesterday's exam, positive for a few scattered expiratory wheezes over posterior lower basis, but no rhonchi no rales auscultated. Last night patient went into atrial fibrillation with rapid ventricular rate with a rate of 1:30 to 140 BPM. Patient was started on Cardizem drip at 10 mg/hour. He had 2 L removed during hemodialysis yesterday evening, her symptoms. He was started on Lasix drip at 10 mg/hr per nephrology. His urine output has improved, averaging 60-100 mL per hour. Overall his net fluid balance is -2800 mL in the last 24 hours. He is currently having another hemodialysis treatment, with a target removal of 3 L today. Patient is hypotensive with systolic in the 70s and 80s, still tachycardic with a rate of 120-120 BPM. May have to restart vasopressor support with levophed. Chest x-ray from December 30 was reviewed and shows diffuse wheezes bilaterally, pulmonary edema versus diffuse pneumonia. Cultures are negative, patient has MRSA bacteremia, concern for possible endocarditis. Currently, covered with daptomycin. Cardiology is unable to proceed with CHASITY the view of patient's respiratory status. Continue oral Cipro for pseudomonal unit tract infection. Overall the patient states his breathing is easier today. The patient is seen again today 07/13/2017 in follow-up in the intensive care unit. He is awake and alert in no acute distress. He did have an episode of chest discomfort. EKG revealed no significant changes. He was given Dilaudid which his pain was relieved. The pain was somewhat atypical it was on the right side and reproducible with palpation. He is down to 5 L/m per nasal cannula to maintain O2 saturations in the 90s. He did not require BiPAP support last night. He had over 3 L removed yesterday via dialysis and another 4 L this morning. His chest x-ray continues to show bilateral infiltrates more so on the right upper lung. He is continued on a Lasix drip at 10 mg per hour. He remains in atrial fibrillation. He remains on amiodarone drip at 0.5 mg/ m. He was off the norepinephrine throughout the night. It was resumed early this morning during dialysis at 6 mcg/m. Currently down to 4 g. Follow-up blood cultures reveal no growth. Initial blood cultures were positive for MRSA. Urine was positive for Pseudomonas. He remains on daptomycin and Ciprofloxacillin. White count 20.0. Hemoglobin 7.6. Creatinine 3.90. His appetite is poor. He is drinking Ensure. On 07/14/2017 and seeing this patient for a follow-up. The patient is awake and alert. Currently is on 3 L of oxygen by nasal cannula. Chest x-ray still showing upper lobe consolidation bilaterally. The patient has some limited leukocytosis. The patient has no fever. The patient remains on daptomycin regarding previous MRSA septicemia. The patient underwent hemodialysis this morning with ultrafiltration. A total of 3.5 L of fluid was removed on today's ultrafiltration. During the time, the patient became more tachycardic with underlying atrial fibrillation rhythm. His current rate is around 120 irregular. His blood pressure is in the 110s and the patient has a map of above 65. He is currently on norepinephrine infusion at 2 mics. He is producing adequate amount of urine output in the order of more than 50 mL an hour and the patient is on Lasix drip at 10 mg an hour. The renal function is still impaired with a creatinine of 3.4. The patient is tolerating a sure. He is having loose bowel movements. No altered mentation at this point. No other significant events overnight. On 07/15/2017, them seeing this patient for a follow-up. Awake and alert. Chest x-ray still showing extensive consolidation of the upper lobes bilaterally. There is a concern of staphylococcal pneumonia and for that reason the daptomycin was discontinued and the patient was switched to IV vancomycin. The first dose will be given to him today. The patient remains pressor dependent at 5 mics of levo fed. The patient is on amiodarone orally and the patient remains in atrial fibrillation and at times is having rapid ventricular response. The highest heart rate has been between 120 and 1:30. The patient is producing adequate amount of urine output. He is on Lasix drip at 10 mg an hour. Nephrology is on the case. No recommendations for hemodialysis today. Repeat blood cultures of been sent. The patient is awake and alert and communicating. He requested a DNR/DNI CODE STATUS. He is having adequate bowel moments. He has loose soft liquidy BMs. His oral intake is minimal and is mainly relying on a sure shakes. No other significant events over the past 24 hours. He is quite weak and debilitated at this point. Reevaluated today on 07/16/2017, patient is feeling a bit better, pain seems to be a bit better controlled with Dilaudid, remains on antibiotics in the form of vancomycin and Zosyn, remains on 5-7 g of levo fed, patient looks chronically ill weak and debilitated. Remains also on Lasix drip. Labs were reviewed WBC count is 17.6, improving. Hemoglobin is 8, electrolytes are normal BUN is 52 creatinine is 4.0. Patient is still receiving daily dialysis mostly for fluid overload, remains nonoliguric and he remains on Lasix drip. Reevaluated today on 07/17/2017, patient supposedly had some deterioration in mental status last night, but does far as I'm concerned, his mental status has been the same all along over the last 2 days. At any rate code stroke was called, and patient underwent CT scanning of the brain which came back nondiagnostic. Patient seems to have what looks like to metabolic encephalopathy related to his multiple metabolic problems as listed below. Today the patient is about the same, he is lethargic, arousable, follows simple instructions, oriented to place and time. WBC count is 21.6 hemoglobin is 7.9 electrolytes were normal BUN is 54 creatinine 4.10, patient will likely be dialyzed again today. Chest x-ray is suggestive of fluid overload and upper lobe pneumonia bilaterally. Patient was reevaluated today on 07/18/2017, today he seems better than he has been over the last 1 week. Seems to be more awake, more alert, follows all simple instructions, in no form of respiratory distress. Patient was seen by nephrology, and they are recommending a permanent dialysis catheter to be placed however patient may decline having such procedure, I believe a family meeting would have to be organized and final decision would have to be made whether to proceed with permanent hemodialysis are not considering the patient' s all other medical issues and morbidities. Family and the patient may consider comfort care measures, and if not I believe we should proceed with permanent dialysis catheter placement. Chest x-ray today is showing some improvement in his bilateral upper lobe disease, CBC was reviewed WBC count is 14.7 hemoglobin is 7.5. Basic metabolic profile is normal BUN is 48 creatinine is 4.0, patient is scheduled to undergo dialysis again today. Patient was reevaluated today on 07/19/2017, seems to be doing much better, patient is agreeable to have a permanent dialysis catheter placed, and I believe that will be arranged for to be done today. In the meantime remains on multiple meds, remains on a very small tiny dose of norepinephrine to maintain adequate blood pressure. His dose is 4 g. CBC showed a hemoglobin of 7.2 electrolytes are normal BUN is 45 creatinine 4.20. Patient remains on antibiotics for his upper lobe pneumonia presumptive MRSA pneumonia. Objective - Vital Signs Vital signs: Vital Signs Temp 98 F 07/19/17 04:00 Pulse 60 07/19/17 09:01 Resp 23 07/19/17 07:00 BP 104/43 07/19/17 07:00 Pulse Ox 96 07/19/17 07:00 Intake & Output 07/18/17 07/19/17 07/19/17 18:59 06:59 18:59 Intake Total 365.532 334.301 17 Output Total 1594 117 Balance -1228.468 217.301 17 Weight 105.5 kg 105.5 kg Intake: IV 160.0 250 Piperacillin-Tazobactam 3 50.0 50 .375 gm In Dextrose/Water 1 50ml.bag @ 12.5 mls/hr IVPB Q12HR [facility] Rx#: [id number] Sodium Chloride 0.9% 1, 110 200 000 ml @ 20 mls/hr IV . Q24H [facility] Rx#:[id number] Intake, IV Titration 205.532 84.301 17 Amount Norepinephrin 16 mg-0.9% 3.282 84.301 17 Ns Pmx 16 mg In 250 ml @ Titrate IV .Q0M [facility] Rx#: [id number] Norepinephrin 4 mg-0.9% 202.25 Ns Pmx 4 mg In 250 ml @ Titrate IV .Q0M [facility] Rx#: [id number] Output: Urine 90 115 Stool 4 2 Other 1500 Other: Voiding Method Indwelling Catheter Indwelling Catheter - Exam GENERAL EXAM: Awake, alert, in no distress HEAD: Normocephalic. EYES: Normal reaction of pupils, equal size. NOSE: Clear with pink turbinates. THROAT: No erythema or exudates. NECK: No masses, no JVD. CHEST: No chest wall deformity. LUNGS: Equal air entry with crackles posterior bases. CVS: S1 and S2 normal with no audible murmur, irregular rhythm. ABDOMEN: No hepatosplenomegaly, normal bowel sounds, no guarding or rigidity. SPINE: No scoliosis or deformity SKIN: No rashes CENTRAL NERVOUS SYSTEM: Alert oriented and definitely more and more awake. EXTREMITIES: There is bilateral peripheral edema. No clubbing, no cyanosis. Peripheral pulses are intact. - Labs CBC & Chem 7: 07/19/17 04:35 07/19/17 04:35 Labs: Abnormal Lab Results - Last 24 Hours (Table) 07/18/17 07/18/17 07/18/17 Range/Units 12:05 15:56 20:09 WBC (3.8-10.6) k/uL RBC (4.30-5.90) m/uL Hgb (13.0-17.5) gm/dL Hct (39.0-53.0) % MCHC (31.0-37.0) g/dL RDW (11.5-15.5) % Neutrophils # (1.3-7.7) k/uL Eosinophils # (0-0.7) k/uL Carbon Dioxide (22-30) mmol/L BUN (9-20) mg/dL Creatinine (0.66-1.25) mg/dL Glucose (74-99) mg/dL POC Glucose (mg/dL) 239 H 171 H 157 H (75-99) mg/dL Calcium (8.4-10.2) mg/dL 07/19/17 07/19/17 07/19/17 Range/Units 00:17 04:02 04:35 WBC 11.1 H (3.8-10.6) k/uL RBC 2.72 L (4.30-5.90) m/uL Hgb 7.2 L (13.0-17.5) gm/dL Hct 23.6 L (39.0-53.0) % MCHC 30.4 L (31.0-37.0) g/dL RDW 16.6 H (11.5-15.5) % Neutrophils # 8.3 H (1.3-7.7) k/uL Eosinophils # 1.1 H (0-0.7) k/uL Carbon Dioxide (22-30) mmol/L BUN (9-20) mg/dL Creatinine (0.66-1.25) mg/dL Glucose (74-99) mg/dL POC Glucose (mg/dL) 178 H 137 H (75-99) mg/dL Calcium (8.4-10.2) mg/dL 07/19/17 07/19/17 Range/Units 04:35 08:12 WBC (3.8-10.6) k/uL RBC (4.30-5.90) m/uL Hgb (13.0-17.5) gm/dL Hct (39.0-53.0) % MCHC (31.0-37.0) g/dL RDW (11.5-15.5) % Neutrophils # (1.3-7.7) k/uL Eosinophils # (0-0.7) k/uL Carbon Dioxide 21 L (22-30) mmol/L BUN 45 H (9-20) mg/dL Creatinine 4.20 H (0.66-1.25) mg/dL Glucose 131 H (74-99) mg/dL POC Glucose (mg/dL) 143 H (75-99) mg/dL Calcium 7.9 L (8.4-10.2) mg/dL Microbiology - Last 24 Hours (Table) 07/14/17 10:21 Blood Culture - Preliminary Blood No Growth after 96 hours 07/14/17 10:14 Blood Culture - Preliminary Blood No Growth after 96 hours Assessment and Plan Assessment: #1 metastatic prostate cancer with skeletal and liver involvement. The tumor itself is extended locally to involve the rectal wall and causing mass effect on the rectum. The patient may be a a candidate for systemic chemotherapy. Consideration was given for palliative radiation therapy however this has not been done as the patient became quite ill and he went into acute hypoxic respiratory failure. Note that the PET scan of the whole body showed a Large hypermetabolic lesion of right-sided prostatic carcinoma with evidence of extra capsular extension into the rectum and into the right pelvis causing osseous distraction of medial right inferior pelvic ramus near pubic symphysis. Metastatic lesion to the liver. #2 Acute rectal bleeding secondary to invading prostate mass. Status post 2 units of packed red blood cell infusions. Current hemoglobin 8.0 #3 Sepsis secondary to MRSA bacteremia. There is a concern for infective endocarditis knowing that the possible mitral valve vegetation. Estimated ejection fraction was around 30%. #4 Acute on chronic renal failure, requiring recent daily hemodialysis. Current creatinine 3.6. #5 acute hypoxic history failure with extensive upper lobe consolidation. Patient improved with hemodialysis ultrafiltration. Nevertheless he continues to have leukocytosis and there is extensive consolidation of the upper lobes bilaterally. He is on IV Zosyn. Concern for MRSA pneumonia is there and based on that the patient will be switched to vancomycin. #6 chronic atrial fibrillation with rapid response currently on an amiodarone orally 400 mg 3 times a day. The patient on a candidate for anticoagulation. #7 Coronary artery disease. #8 Diabetes mellitus. Recurrent on insulin drip for blood sugar control at the rate of 1.5 units an hour #9 Hyperlipidemia. #10 Hypertension. #11 congestion heart failure with ejection fraction of 30% and concern for mitral valve vegetation/endocarditis #12 hypotension currently on few mics of levo fed for hemodynamic support him a rule out secondary to underlying septicemia #13 extensive lower extremities edema and signs of fluid overload. The patient is improving in terms of the fluid balance the patient is currently on lisinopril 10 mg an hour. Daily dialysis and ultrafiltration is also being done #14 anemia, multifactorial. He was stable at 7.9 #15 poor baseline performance and functional status and the patient is a retirement resident. Cor status is DNR/DNI #16 history of shingles. #17 acute urinary tract infection secondary to pseudomonas aeruginosa, patient remains on Zosyn. Recommendation: Continue vancomycin, continue Zosyn, continue Lasix and dialysis , continue treatment of atrial fibrillation as per cardiology, continue to wean pressors if possible, patient is presently on 4 g of norepinephrine. The issue of permanent hemodialysis is being considered, patient seems to be agreeable to proceed with a permanent dialysis catheter, hopefully this will be done today. Continue present supportive care measures, was the patient is off norepinephrine we could possibly transfer out of the ICU. Time with Patient: Less than 30
[2017-07-19 12:07] LABS: Glucose,Whole Blood 179 mg/dL (75-99)
--- NOTE | 2017-07-19 12:27 | P.PN ---
Progress Note - Text Progress Note Date: 07/19/17 DATE OF SERVICE: 07/19/2017 PRESENTING COMPLAINT: Shortness of breath HISTORY OF PRESENT ILLNESS: 81-year-old male resident of [facility] [place] the [place] with multiple medical problems who presented with fever and generalized weakness, admitted to the regular medical floor with a suspected UTI infection and sepsis.Patient developed bright red blood per rectum and his systolic blood pressure dropped into the 70s and 80s. Hemoglobin was 7.0. Transferred to the ICU. Received 2 units of packed red cells. Elevated kidney function requiring placement of a temporary hemodialysis catheter and hemodialysis has been initiated by nephrology. Became increasingly more short of breath requiring BiPAP support. Has received multiple doses of Lasix, continues to be on and off the BiPAP, Cardizem drip initiated to help control heart rate, Lasix drip initiated to help diurese the patient, receives Levophed for blood pressure support. Has MRSA bacteremia concerns for possible endocarditis however patient is unable to lie flat for CHASITY. Has metastatic prostate cancer with involvement of the rectum causing a GI bleed. INTERVAL HISTORY: 07/19/2017: Sitting up in the bed in chair mode, will receive dialysis later today. Temp right groin catheter. Patient does need a new dialysis catheter placed and patient is agreeable arrangement is being made for this to be done today. Remains on Levophed, 4 g, as well as upper lobe pneumonia assumptive MRSA pneumonia. Nutrition services increased supplements due to patient's poor appetite. Nephrology added Megace. 07/18/2017: Lying in bed,status post dialysis catheter placement, previous catheter was clogged attempts made to declog it and were unsuccessful, receiving dialysis. Remains on 3 L nasal cannula, afebrile, remains in sinus rhythm rate in the low 100s,Ramesh catheter needed to be changed and was performed by urology this morning, antibiotic therapy continues for MRSA septicemia, continues to have hypotension requiring the use of pressors, Lasix drip was discontinued, appetite is poor eating very little of his meals but drinking his ensure shakes. 07/17/2017: Patient lying in bed leaning over to the left side of the bed tired appearing complains of pain. Remains on 3 L nasal cannula, afebrile, converted to sinus rhythm yesterday, heart rate remains under control, antibiotic therapy continues for MRSA septicemia hemodialysis scheduled for today as they were unsuccessful yesterday and taking off the full amount. Today's session they had much difficulty with the catheter, TPA placed in the catheter and an attempt will be made to try and dialyze the patient tomorrow if unsuccessful consideration needs to be given to placement of a new dialysis catheter. Levophed continues at 4 g, Lasix drip at 10 mL, appetite is poor is only drinking his ensure shakes. 07/16/2017: Patient lying in bed and is tired appearing, having increasing complaints of pain. Remains on 3 L nasal cannula, afebrile,remains tachycardic, antibiotic therapy continues for MRSA septicemia, hemodialysis later today. Levophed continues at 6 g, insulin drip discontinued, Lasix drip at 10 ml. Appetite poor primarily drinks his ensure shakes. Antibiotics continue in the form of Zosyn and vancomycin. 07/15/2017: Patient lying in bed appears tired today complaining to his left side, remains on 3 L nasal cannula, afebrile, antibiotic therapy continues for MRSA septicemia. Next hemodialysis will be performed on Sunday. Continues to be tachycardic is on and off the Levophed at 5 g an hour for blood pressure support, Lasix drip continues at 10 mg an hour, renal function remains impaired but does have good urine output. Poor appetite, takes primarily his ensure shakes. Antibiotic therapy in the form of Zosyn and vancomycin. Last BM 201707/14/2017: Patient lying in bed, breathing easier. Remains on 3 L nasal cannula, afebrile , antibiotic therapy continues for MRSA septicemia. Hemodialysis done today with 3.5 L removed, patient did become more tachycardic during the procedure. His baseline rate is about 120 beats a minute irregular, blood pressure is in the 110s, Levophed infusion at 2 mics a minute, Lasix drip continues at 10 mg an hour, renal function continues to be impaired. Appetite is poor, does drink his ensure. 07/13/2017: Patient lying in bed receiving hemodialysis, breathing is somewhat easier, heart rate remains elevated. Had an episode of chest discomfort and received Dilaudid which relieved his pain. Pain was located on the right side of the chest and reproducible with palpation. Remains on 5 L nasal cannula did not require any BiPAP support overnight. Hemodialysis was successful removing 3 L of fluid yesterday patient is scheduled for another round of hemodialysis today. Lasix drip continues at 10 mg an hour, remains in atrial fibrillation amiodarone drip at 0.5 mg a minute, norepinephrine was on and off throughout the night. Currently at 4 g. Follow-up blood cultures negative for growth. Remains on daptomycin and ciprofloxacin. REVIEW OF SYSTEMS: Done for constitutional ,cardiovascular, GI, pulmonary with relevant findings as above. CURRENT MEDICATIONS Acetaminophen, DuoNeb, amiodarone 400 mg by mouth 3 twice a day, Casodex 50 g by mouth twice a day, Questran 4 g by mouth twice a day, , Aranesp 40 g subcu every 7 days, Colace, Lasix 80 mg IV twice a day, Dilaudid 0.5 mg IV push every hours, Ativan 1 mg IV every 4 hours when necessary, melatonin 3 mg by mouth at bedtime, Lopressor 25 mg by mouth twice a day, midodrine 5 mg by mouth before meals 3 times a day, Levophed 4 milligrams in 250 mL IV piggyback, Zofran 4 mg IV push every 6 hours when necessary, Protonix 40 mg by mouth daily, Ultram 50 g by mouth 4 times a day, Zosyn MiraLAX. Idamycin 1750 mg in IV piggyback Potassium chloride 20 mg by mouth daily PHYSICAL EXAM VITAL SIGNS: Temperature 98.0, pulse 60, respirations 17, blood pressure 121/54, oxygen saturation 97% on 3 L GENERAL APPEARANCE: Lying in bed, tired appearing, more awake HEENT: Pupils equal. Conjunctiva normal. JVD not raised. Mass not palpable. RESPIRATORY: Respiratory effort increased. Diminished bilaterally basilar crackles. CARDIOVASCULAR: First and second sounds irregular. Moderate edema. ABDOMEN: Soft. Liver and spleen not palpable. No tenderness. No mass palpable. PSYCHIATRY: Alert and oriented x3. Mood and affect somewhat anxious appearing. INTEGUMENT: Right groin dialysis catheter, right upper arm PICC line . INVESTIGATIONS: LABS: I blood cell count 11.1, hemoglobin 7.2, carbon dioxide 21, BUN 45, creatinine 4.20, Accu-Cheks noted, Chest x-raybilateral diffuse airspace disease. ASSESSMENT: -Methicillin-resistant Staphylococcus aeruginosa bacteremia with suspicion for underlying endocarditis, pending transesophageal echocardiogram -Possible staphylococcal lung infection/MRSA pneumonia secondary to chest x-ray findings to the upper lobe apices -Volume overload, multifactorial, slow to respond -Anemia, multifactorial, including that of chronic kidney disease and some blood loss, stable at 7.2 -Metabolic acidosis from acute kidney injury, improved with dialysis -Acute kidney injury from acute tubular necrosis, including hypertension. -Chronic kidney disease, prostate leak from nephrosclerosis. -Hypotensive shock. possibly cardiogenic continues to be on and off of Levophed. -Persistent atrial fibrilation uncontrolled on by mouth amiodarone. -Metastatic prostate cancer with involvement of the bone including the inferior pubic rami, liver on PET scan, and the rectum causing rectal bleeding. The patient is getting palliative radiation treatment and Casodex. -Acute blood loss anemia from gastrointestinal bleed from metastatic prostate cancer to the rectum, having received 2 units packed red blood cells. -Diabetes mellitus type 2 on insulin drip -Hypertension, history of. -Hyperlipidemia. -Acute congestive heart failure from systolic dysfunction ejection fraction 30- 35% could be arrhythmia reduced, slow to respond -Acute hypoxic respiratory failure status post ventilator support, patient currently on 3 L of oxygen, slow to respond -Acute renal failure, likely acute tubular necrosis, now requiring hemodialysis , slow to respond -Acute urinary tract infection with Pseudomonas, status post antibiotic, resolved -CODE STATUS: No code PLAN: Antibiotic therapy continues Zosyn and vancomycin. Continues to be on and off the Levophed drip attempting to wean. By mouth Lasix continues, patient's agreeable to have a new dialysis catheter placed and arrangements being made for placement. Hemodialysis per nephrology. If levothyroid can be weaned could potentially be transferred to E. Overall prognosis continues to be quite poor particularly with multiple comorbidities and metastatic prostate cancer. Plan of care discussed with the patient the bedside we will follow closely. ROOFING TECHNICIAN statement: Patient was seen and examined by nurse practitioner Beth Hammond and all elements of the case discussed with attending Dr. Ortiz
--- NOTE | 2017-07-19 13:52 | PN ---
PROGRESS NOTE Patient is seen for followup for end-stage renal disease. He is currently maintained on daily dialysis. We are waiting for a new catheter to be placed for dialysis. He currently has a right femoral, which has not been working well. PHYSICAL EXAMINATION: Blood pressure is 104/43, heart rate 67 per minute. Patient is afebrile. Examination of the heart S1, S2. Examination of the lungs, decreased breath sounds at bases. Abdomen is soft, nontender. Examination of the lower extremity shows chronic skin changes with chronic edema 2+ bilaterally. LABS: Show sodium 137, potassium 3.5, hemoglobin 7.2 g/dL. ASSESSMENT: 1. End-stage renal disease, currently on hemodialysis. The patient is being dialyzed on a daily basis secondary to volume overload, which seems to have improved. 2. Hypotension. Currently on 4 mcg of Levophed. Will increase the oral midodrine and try to wean down the Levophed. 3. Methicillin-resistant Staphylococcus aureus bacteremia with repeat cultures now negative. 4. Pseudomonas urinary tract infection. 5. Fluid overload, currently significantly improved. 6. Anemia, multifactorial with anemia of chronic disease as well history of gastrointestinal bleed and ongoing malignancy, maintained on Aranesp. 7. Invasive prostatic cancer with rectal mass. PLAN: Increase oral midodrine and try to wean off the Levophed. Plan is to change the femoral catheter to an IJ PermCath. Vascular Surgery has been notified. MMODL / IJN: [id number] /
[2017-07-19 14:04] LABS: INR 1.2 (<1.2); Partial Thromboplastin Time 21.4 sec (22.0-30.0); Prothrombin Time 11.2 sec (9.0-12.0)
--- NOTE | 2017-07-19 15:04 | PN ---
PROGRESS NOTE Mr. Leslie is an 81-year-old male who presented with evidence of prostate cancer and bleeding. He had metastasis to the liver. He had episode of atrial fibrillation. He has renal failure and has underwent dialysis. He appears to be more awake and alert today. He denies any chest pain. He denies any palpitation. He denies any nausea. He continued to be in sinus mechanism. He continues to be at this time on amiodarone 400 mg twice a day, furosemide 80 mg IV q.12 hours, and metoprolol tartrate 25 mg twice a day. He continues to be as well on a low-dose norepinephrine. PHYSICAL EXAMINATION: Blood pressure 120/60 with a heart rate in the 60s. LUNGS: With scattered rhonchi. Heart regular rate and rhythm S1, S2. No S3 with systolic murmur. ABDOMEN: Soft, nontender. Extremities with mild edema. LAB DATA: Lab data revealed an INR of 1.2, hemoglobin of 7.2. BUN and creatinine 45 and 4.2. IMPRESSION: 1. Prostate cancer with metastasis and bleeding. 2. Paroxysmal atrial fibrillation. 3. Renal failure. 4. Pneumonia. RECOMMENDATION: I will cut down the dose of his amiodarone to 200 mg twice a day. Continue rest of his medical regimen. The patient will receive a permanent dialysis catheter and depending on his progress, further recommendations will be made. The prognosis remains quite guarded. MMODL / IJN: [id number] /
[2017-07-19] MEDS: FUROSEMIDE 10 MG/ML 10 ML VIAL IV SCH ×2 (15:24→23:25)
[2017-07-19] MEDS: LIDOCAINE 2% INJ 20 MG/ML SQ ONE ×2 (16:17→16:19)
--- NOTE | 2017-07-19 16:37 | PN ---
PROGRESS NOTE DATE OF SERVICE: 07/19/2017. REASON FOR FOLLOWUP: MRSA bacteremia, possible endocarditis and pneumonia. INTERVAL HISTORY: The patient is afebrile. He is hemodynamically stable. Current undergoing hemodialysis with a goal of 3 L of fluid removed. Still complaining of some shortness of breath. No chest pain. No cough. No nausea, no vomiting. Diarrhea has improved. EXAMINATION: Blood pressure 104/43 with a pulse of 57, temperature of 98. He is 96% on 3 L nasal cannula. General description is an elderly male lying in bed in no distress. RESPIRATORY SYSTEM: Unlabored breathing with decreased breath sounds in the bases. HEART: S1, S2. Regular rate and rhythm. ABDOMEN: Soft, no tenderness. EXTREMITIES: 1+ edema of feet. LABS: Hemoglobin 7.8, white count 11.1 with a BUN of 45, creatinine 4.20. DIAGNOSTIC IMPRESSION AND PLAN: 1. Patient with MRSA bacteremia, possible endocarditis and possible component of pneumonia. Currently on Vancomycin and Zosyn; that will be continued. His white count almost normalized. 2. Diarrhea with C diff is negative. He is currently on Questran for symptomatic relief and no worsening diarrhea. MMODL / IJN: [id number] /
[2017-07-19 17:16] LABS: Glucose,Whole Blood 186 mg/dL (75-99)
[2017-07-19] MEDS: MIDODRINE 5 MG TAB PO SCH ×2 (17:26→18:37)
--- NOTE | 2017-07-19 17:35 | XR ---
EXAMINATION TYPE: XR chest 1V portable DATE OF EXAM: 07/19/2017 HISTORY: post permanent dialysis catheter placement. REFERENCE: Previous study dated 07/19/2017. FINDINGS: A large-bore, double-lumen catheter is in place via a right internal jugular approach. Its tip is in the superior vena cava. A right basilic PICC line is in place. Its tip is not identified wi th certainty. There is biapical airspace disease. The heart is upper limits of normal in size. No definite pleural fluid is seen. IMPRESSION: 1. NO POST CATHETER INSERTION COMPLICATION. 2. BIAPICAL AIRSPACE DISEASE. 3. BORDERLINE CARDIOMEGALY.
[2017-07-19] MEDS ORDERED: VANCOMYCIN 1,750 MG in SODIUM CHLORIDE 0.9% 250 ML IVPB ONE (18:00)
[2017-07-19] MEDS: METOPROLOL TARTRATE 25 MG TAB PO SCH ×2 (18:36→20:23)
[2017-07-19] MEDS ORDERED: LOPERAMIDE 2 MG CAP PO PRN (19:50)
--- NOTE | 2017-07-19 19:58 | OP ---
OPERATIVE REPORT PREOPERATIVE DIAGNOSIS: Acute on chronic renal failure. PROCEDURES: 1. Ultrasound-guided 28 cm dialysis catheter placement in the right internal jugular vein. 2. Removal of the right femoral dialysis catheter. DESCRIPTION OF PROCEDURE: The patient was brought to the analytical lab technician. Right side of the neck and chest was prepped and draped in usual sterile manner. Lidocaine 1% was infiltrated. Ultrasound-guided micropuncture was introduced into the right internal jugular vein. After that, micropuncture guide was passed and 4 Barbadian dilator was passed over the guidewire. Then the tunnel was created. Through the tunnel we brought 28 cm dialysis catheter. After that we passed a regular guidewire and under fluoroscopy control the guide was parked at the inferior vena cava. Then we brought the 28 cm dialysis catheter through the tunnel to the neck area and dilator was advanced on top of the guidewire. The sheath was advanced. Through the sheath into dialysis catheter the tip of the catheter went into the right atrium and superior vena cava junction. Flushed with heparin saline and secured. Incision was closed with Vicryl and nylon. Dressing applied. Patient tolerated the procedure well. MMODL / IJN: [id number] /
[2017-07-19 20:22] LABS: Glucose,Whole Blood 163 mg/dL (75-99)
[2017-07-19 23:29] LABS: Glucose,Whole Blood 169 mg/dL (75-99)
[2017-07-20] MEDS: HYDROmorphone 2 MG/ML 1 ML SYRINGE IVP PRN ×4 (01:20→12:20)
[2017-07-20 04:48] LABS: Glucose,Whole Blood 169 mg/dL (75-99)
[2017-07-20] MEDS: INSULIN ASPART 100 UNIT/ML 1 ML 10 ML VIAL SQ SCH ×5 (04:54→20:34)
--- NOTE | 2017-07-20 05:37 | PN ---
PROGRESS NOTE DATE OF SERVICE: 07/19/2017. ATTENDING NOTE: This patient was seen and examined by me. I discussed with nurse practitioner, Ms. Hammond. Remains in the ICU, still on Levophed. Getting dialyzed today. Later in the day suppose to have permanent catheter placed. at the bedside. Remains very short of breath. On examination, decreased breath sounds. No crackles. Edema present. Tired appearing. Patient is getting hemodialyzed. Prognosis not good. understands multiple medical problems. MMODL / IJN: [id number] /
[2017-07-20 05:42] LABS: Calcium 7.7 mg/dL (8.4-10.2); Magnesium 1.9 mg/dL (1.6-2.3); Phosphorus 4.2 mg/dL (2.5-4.5); Potassium 4.1 mmol/L (3.5-5.1)
[2017-07-20 05:50] LABS: Anisocytosis Slight; Basophils % (A) 0 %; Eosinophils # (A) 0.9 k/uL (0-0.7); Eosinophils % (A) 11 %; HCT 21.4 % (39.0-53.0); Hypochromasia Marked; Lymphocytes # (A) 0.9 k/uL (1.0-4.8); Lymphocytes % (A) 11 %; MCH 25.9 pg (25.0-35.0); MCHC 30.1 g/dL (31.0-37.0); Mean Platelet Volume 8.2; Monocytes # (A) 0.2 k/uL (0-1.0); Monocytes % (A) 3 %; Neutrophils # (A) 6.2 k/uL (1.3-7.7); Neutrophils % (A) 74 %; Platelet Count 129 k/uL (150-450); Poikilocytosis Slight; RBC 2.49 m/uL (4.30-5.90); RDW 17.3 % (11.5-15.5); WBC 8.4 k/uL (3.8-10.6)
[2017-07-20 05:55] LABS: HGB 6.4 gm/dL (13.0-17.5)
[2017-07-20] MEDS: IPRATROPIUM-ALBUTEROL 3 ML NEB INHALATION SCH ×4 (07:41→19:51)
[2017-07-20 07:56] LABS: Glucose,Whole Blood 142 mg/dL (75-99)
--- NOTE | 2017-07-20 08:06 | XR ---
EXAMINATION TYPE: XR chest 1V DATE OF EXAM: 07/20/2017 COMPARISON: 07/19/2017 HISTORY: Postdialysis catheter insertion TECHNIQUE: Single frontal view of the chest is obtained. FINDINGS: Bilateral airspace disease and pleural effusion is stable. Dialysis catheter and PICC line stable. Cardiomegaly and atherosclerotic change aorta. Underlying venous congestion not excluded. Ar thropathy of the shoulders. IMPRESSION: 1. Stable diffuse bilateral airspace disease and pleural effusion.
--- NOTE | 2017-07-20 08:17 | IR ---
EXAMINATION TYPE: IR cvc insert central tunneled DATE OF EXAM: 07/19/2017 COMPARISON: NONE HISTORY: Dialysis catheter insertion. Fluoroscopy was provided to the referring clinician. See dictated report from referring physician.
[2017-07-20] MEDS: METOPROLOL TARTRATE 25 MG TAB PO SCH ×2 (08:37→20:05)
[2017-07-20] MEDS: AMIODARONE 200 MG TAB PO SCH ×2 (08:38→08:52)
[2017-07-20] MEDS: MIDODRINE 5 MG TAB PO SCH ×3 (08:38→16:53)
[2017-07-20] MEDS: BICALUTAMIDE 50 MG TAB PO SCH ×2 (08:38→20:34)
--- NOTE | 2017-07-20 08:38 | PN ---
PROGRESS NOTE Mr. Leslie is an 81-year-old male who has history of prostate cancer with metastasis and GI bleed, renal failure, who presented from the cardiac standpoint with episode of atrial fibrillation. He has evidence of cardiomyopathy. He is awake, alert, feeling better. Hemodynamically, he has been stable. He is off the Levophed. He denies any chest pain. No dizziness. No palpitation. He underwent dialysis yesterday with placement of dialysis catheter. He continues to be on the amiodarone 200 mg twice a day. Furosemide 80 mg IV q.12 hours and metoprolol tartrate 25 mg twice a day. PHYSICAL EXAMINATION: Blood pressure running in the low 100s with a heart rate in the 60s. LUNGS: No wheezes or rales. HEART: Regular rate and rhythm, S1, S2. No S3. No rub. ABDOMEN: Soft and nontender. EXTREMITIES: 1+ edema. LAB DATA: Lab data revealed a hemoglobin of 6.4, BUN and creatinine of 38 and 3.9. IMPRESSION: 1. Prostate cancer with metastasis. 2. Atrial fibrillation in normal sinus rhythm. 3. Evidence of cardiomyopathy of unknown duration or etiology. 4. Renal failure. He is receiving dialysis. 5. Hypotension, improved. RECOMMENDATION: From the cardiac standpoint, I will continue on the present therapy. I will cut down the dose of his amiodarone to 200 mg daily because of episode of bradycardia. Continue his medical regimen. If his blood pressure remains stable, the dose of his beta trinity can be increased. Depending on his progress, further recommendation will be made. MMODL / IJN: [id number] /
[2017-07-20] MEDS: MEGESTROL 400 MG/10 ML CUP PO SCH (08:39)
[2017-07-20] MEDS: FUROSEMIDE 10 MG/ML 10 ML VIAL IV SCH ×2 (08:39→20:34)
[2017-07-20] MEDS: POTASSIUM CHLORIDE ORAL LIQUID 40 MEQ/30 ML CUP PO SCH (08:39)
[2017-07-20] MEDS: PANTOPRAZOLE 40 MG TABLET PO SCH (08:40)
[2017-07-20] MEDS: PIPERACILLIN-TAZOBACTAM 3.375 GM in DEXTROSE/WATER 1 50ML.BAG IVPB SCH ×2 (08:40→20:34)
[2017-07-20] MEDS: CHOLESTYRAMINE (WITH SUGAR) 4 GM PACKET PO SCH ×2 (10:35→17:15)
[2017-07-20 12:19] LABS: Glucose,Whole Blood 203 mg/dL (75-99)
--- NOTE | 2017-07-20 12:33 | P.PN ---
Subjective Progress Note Date: 07/20/17 Principal diagnosis: Acute MRSA sepsis and bacteremia. 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 This is a pleasant 81-year-old gentleman who resides at an extended care facility who has a history of coronary artery disease, paroxysmal atrial fibrillation, diabetes mellitus, hyperlipidemia, hypertension, shingles, MRSA infection in the blood and urine. 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 A recent PET scan revealed large hypermetabolic lesion presumed right-sided prostatic carcinoma there is also evidence of extra Chiller extension into the rectum and into the right pelvis causing osseous destruction of medial right MP a pelvic ramus near pubic symphysis. There is metastatic lesion to the liver as well. Patient was readmitted yesterday with fever and generalized weakness. Gentleman admitted to the regular medical floor with suspected urinary tract infection and sepsis. Last evening he developed bright red bleeding from the rectum approximately 50 MLS. He did have a drop in his systolic blood pressure into the 70s and 80s. His hemoglobin was 7.0. He was transferred here to the intensive care unit. He did not require any pressors. Did receive 2 units of packed red blood cells in his current hemoglobin is 8.6. White count 11.7. Creatinine 3.10. AST 158, ALT 106 Blood cultures are revealing presumptive MRSA. His chest x-ray shows mild fluid volume overload with small effusions. He is maintaining O2 saturations in the upper 90s on 2 L/m per nasal cannula. On 07/10/2017 patient is seen in follow-up on medical surgical floor. He developed an acute episode of respiratory distress, severe orthopnea, and acute dyspnea. His lab work today was reviewed, there is no evidence of leukocytosis , WBC is 7.7, hemoglobin is 8.1, his sodium is 133, his carbon dioxide was 18, his BUN is 55, and creatinine is 5.40. Nephrology has discussed initiation of hemodialysis with him today, patient is in agreement. His oxygenation requirements have increased, this morning he was on 2 L per nasal cannula with O2 sat at 97%, through the day and has deteriorated, and patient is not requiring 5-6 L per nasal cannula with O2 sat at 92-93%. Lung sounds are positive for coarse rales throughout the lung doan bilaterally. He remains afebrile. No other episodes of rectal bleeding was observed. Patient was actually due to start radiation therapy for his prostate cancer today, however in view of his worsening respiratory status, was put on hold. Stat chest x-ray was obtained, and shows worsening decompensated congestive heart failure and confluent pulmonary edema. 80 mg of Lasix IV was given, with no response, patient only made 10 mL of urine. Patient has been progressively more oliguric over the last few days. Has been complaining of worsening appetite and weakness. Dr. Escobedo was consulted for placement of hemodialysis catheter, patient is unable to lay down flat, patient may have to go on the BiPAP support and hemodialysis catheter may have to be placed in the femoral area. We will transfer the patient to the intensive care, and request Dr. Escobedo to place a hemodialysis catheter STEPHEN and initiate hemodialysis as soon as possible. On 07/11/2017 patient remains in the intensive care BiPAP support with pressures 12.5 and FiO2 40%. He had hemodialysis last night would removal of 3 L of fluid, he is scheduled for hemodialysis again today. Is moderately short of breath, lung sounds are positive for coarse rhonchi, rales. And to produce some urine, 10-20 mL per hour. Chest x-ray from 07/11/2017 has been reviewed and shows airspace disease consistent with CHF and pulmonary edema. Support was reviewed, WBCs are up to 14, hemoglobin is 9, serum sodium is 134, serum potassium is 4.1, B1 is 46, creatinine is 5.2, with CO2 of 17. Bilateral lower extremities positive for 1+ pitting edema. Patient was given 80 mg of Lasix with modest response, about 125 mL in the first hour after administration. Continues on ciprofloxacin for Pseudomonas in the urine, daptomycin for the positive blood cultures with MRSA. On 07/12/2017 patient is seen again in the intensive care. Wore the BiPAP mask intermittently last night, this morning he is on 6 L of oxygen, per high flow nasal cannula. Denies worsening dyspnea at rest, still using accessory abdominal muscles. Lung sounds are much improved from yesterday's exam, positive for a few scattered expiratory wheezes over posterior lower basis, but no rhonchi no rales auscultated. Last night patient went into atrial fibrillation with rapid ventricular rate with a rate of 1:30 to 140 BPM. Patient was started on Cardizem drip at 10 mg/hour. He had 2 L removed during hemodialysis yesterday evening, her symptoms. He was started on Lasix drip at 10 mg/hr per nephrology. His urine output has improved, averaging 60-100 mL per hour. Overall his net fluid balance is -2800 mL in the last 24 hours. He is currently having another hemodialysis treatment, with a target removal of 3 L today. Patient is hypotensive with systolic in the 70s and 80s, still tachycardic with a rate of 120-120 BPM. May have to restart vasopressor support with levophed. Chest x-ray from December 30 was reviewed and shows diffuse wheezes bilaterally, pulmonary edema versus diffuse pneumonia. Cultures are negative, patient has MRSA bacteremia, concern for possible endocarditis. Currently, covered with daptomycin. Cardiology is unable to proceed with CHASITY the view of patient's respiratory status. Continue oral Cipro for pseudomonal unit tract infection. Overall the patient states his breathing is easier today. The patient is seen again today 07/13/2017 in follow-up in the intensive care unit. He is awake and alert in no acute distress. He did have an episode of chest discomfort. EKG revealed no significant changes. He was given Dilaudid which his pain was relieved. The pain was somewhat atypical it was on the right side and reproducible with palpation. He is down to 5 L/m per nasal cannula to maintain O2 saturations in the 90s. He did not require BiPAP support last night. He had over 3 L removed yesterday via dialysis and another 4 L this morning. His chest x-ray continues to show bilateral infiltrates more so on the right upper lung. He is continued on a Lasix drip at 10 mg per hour. He remains in atrial fibrillation. He remains on amiodarone drip at 0.5 mg/ m. He was off the norepinephrine throughout the night. It was resumed early this morning during dialysis at 6 mcg/m. Currently down to 4 g. Follow-up blood cultures reveal no growth. Initial blood cultures were positive for MRSA. Urine was positive for Pseudomonas. He remains on daptomycin and Ciprofloxacillin. White count 20.0. Hemoglobin 7.6. Creatinine 3.90. His appetite is poor. He is drinking Ensure. On 07/14/2017 and seeing this patient for a follow-up. The patient is awake and alert. Currently is on 3 L of oxygen by nasal cannula. Chest x-ray still showing upper lobe consolidation bilaterally. The patient has some limited leukocytosis. The patient has no fever. The patient remains on daptomycin regarding previous MRSA septicemia. The patient underwent hemodialysis this morning with ultrafiltration. A total of 3.5 L of fluid was removed on today's ultrafiltration. During the time, the patient became more tachycardic with underlying atrial fibrillation rhythm. His current rate is around 120 irregular. His blood pressure is in the 110s and the patient has a map of above 65. He is currently on norepinephrine infusion at 2 mics. He is producing adequate amount of urine output in the order of more than 50 mL an hour and the patient is on Lasix drip at 10 mg an hour. The renal function is still impaired with a creatinine of 3.4. The patient is tolerating a sure. He is having loose bowel movements. No altered mentation at this point. No other significant events overnight. On 07/15/2017, them seeing this patient for a follow-up. Awake and alert. Chest x-ray still showing extensive consolidation of the upper lobes bilaterally. There is a concern of staphylococcal pneumonia and for that reason the daptomycin was discontinued and the patient was switched to IV vancomycin. The first dose will be given to him today. The patient remains pressor dependent at 5 mics of levo fed. The patient is on amiodarone orally and the patient remains in atrial fibrillation and at times is having rapid ventricular response. The highest heart rate has been between 120 and 1:30. The patient is producing adequate amount of urine output. He is on Lasix drip at 10 mg an hour. Nephrology is on the case. No recommendations for hemodialysis today. Repeat blood cultures of been sent. The patient is awake and alert and communicating. He requested a DNR/DNI CODE STATUS. He is having adequate bowel moments. He has loose soft liquidy BMs. His oral intake is minimal and is mainly relying on a sure shakes. No other significant events over the past 24 hours. He is quite weak and debilitated at this point. Reevaluated today on 07/16/2017, patient is feeling a bit better, pain seems to be a bit better controlled with Dilaudid, remains on antibiotics in the form of vancomycin and Zosyn, remains on 5-7 g of levo fed, patient looks chronically ill weak and debilitated. Remains also on Lasix drip. Labs were reviewed WBC count is 17.6, improving. Hemoglobin is 8, electrolytes are normal BUN is 52 creatinine is 4.0. Patient is still receiving daily dialysis mostly for fluid overload, remains nonoliguric and he remains on Lasix drip. Reevaluated today on 07/17/2017, patient supposedly had some deterioration in mental status last night, but does far as I'm concerned, his mental status has been the same all along over the last 2 days. At any rate code stroke was called, and patient underwent CT scanning of the brain which came back nondiagnostic. Patient seems to have what looks like to metabolic encephalopathy related to his multiple metabolic problems as listed below. Today the patient is about the same, he is lethargic, arousable, follows simple instructions, oriented to place and time. WBC count is 21.6 hemoglobin is 7.9 electrolytes were normal BUN is 54 creatinine 4.10, patient will likely be dialyzed again today. Chest x-ray is suggestive of fluid overload and upper lobe pneumonia bilaterally. Patient was reevaluated today on 07/18/2017, today he seems better than he has been over the last 1 week. Seems to be more awake, more alert, follows all simple instructions, in no form of respiratory distress. Patient was seen by nephrology, and they are recommending a permanent dialysis catheter to be placed however patient may decline having such procedure, I believe a family meeting would have to be organized and final decision would have to be made whether to proceed with permanent hemodialysis are not considering the patient' s all other medical issues and morbidities. Family and the patient may consider comfort care measures, and if not I believe we should proceed with permanent dialysis catheter placement. Chest x-ray today is showing some improvement in his bilateral upper lobe disease, CBC was reviewed WBC count is 14.7 hemoglobin is 7.5. Basic metabolic profile is normal BUN is 48 creatinine is 4.0, patient is scheduled to undergo dialysis again today. Patient was reevaluated today on 07/19/2017, seems to be doing much better, patient is agreeable to have a permanent dialysis catheter placed, and I believe that will be arranged for to be done today. In the meantime remains on multiple meds, remains on a very small tiny dose of norepinephrine to maintain adequate blood pressure. His dose is 4 g. CBC showed a hemoglobin of 7.2 electrolytes are normal BUN is 45 creatinine 4.20. Patient remains on antibiotics for his upper lobe pneumonia presumptive MRSA pneumonia. Reevaluated today on 07/20/2017, patient had a permanent dialysis catheter placed yesterday. Continues to have somedisease in the upper lobes as noted on the chest x-ray,but clinically the patient is relatively asymptomatic. Hemoglobin today is 6.4, patient is receiving a unit of packed RBCs today. His blood loss is multifactorial. Most likely related to his underlying renal failure, blood draws, may or may have some ongoing minimal GI bleeding.clinically however the patient is doing great, and he has been gradually getting better on a daily basis. Today he is off norepinephrine, and I plan to transfer the patient to a monitor bed on selective. Objective - Vital Signs Vital signs: Vital Signs Temp 96.3 F L 07/20/17 09:42 Pulse 63 07/20/17 11:35 Resp 14 07/20/17 11:00 BP 105/49 07/20/17 11:00 Pulse Ox 95 07/20/17 11:00 Intake & Output 07/19/17 07/20/17 07/20/17 18:59 06:59 18:59 Intake Total 786.5 576.464 447.5 Output Total 39 109 21 Balance 747.5 467.464 426.5 Weight 105.5 kg 107.9 kg 107.9 kg Intake: IV 270.0 290 137.5 Piperacillin-Tazobactam 3 50.0 50 57.5 .375 gm In Dextrose/Water 1 50ml.bag @ 12.5 mls/hr IVPB Q12HR [facility] Rx#: [id number] Sodium Chloride 0.9% 1, 220 240 80 000 ml @ 20 mls/hr IV . Q24H [facility] Rx#:[id number] Intake, IV Titration 279.5 49.464 Amount Norepinephrin 16 mg-0.9% 17 49.464 Ns Pmx 16 mg In 250 ml @ Titrate IV .Q0M [facility] Rx#: [id number] Vancomycin 1,750 mg In 262.5 Sodium Chloride 0.9% 250 ml @ 125 mls/hr IVPB ONCE ONE Rx#:[id number] Oral 237 237 Blood Product 310 Rc As-1 Unit 310 [id number] Output: Urine 39 108 20 Stool 1 1 Other: Voiding Method Indwelling Catheter Indwelling Catheter Indwelling Catheter - Exam GENERAL EXAM: Awake, alert, in no distress HEAD: Normocephalic. EYES: Normal reaction of pupils, equal size. NOSE: Clear with pink turbinates. THROAT: No erythema or exudates. NECK: No masses, no JVD. CHEST: No chest wall deformity. LUNGS: Equal air entry with crackles posterior bases. CVS: S1 and S2 normal with no audible murmur, irregular rhythm. ABDOMEN: No hepatosplenomegaly, normal bowel sounds, no guarding or rigidity. SPINE: No scoliosis or deformity SKIN: No rashes CENTRAL NERVOUS SYSTEM: Alert oriented and definitely more and more awake. EXTREMITIES: There is bilateral peripheral edema. No clubbing, no cyanosis. Peripheral pulses are intact. - Labs CBC & Chem 7: 07/20/17 05:45 07/20/17 04:50 Labs: Abnormal Lab Results - Last 24 Hours (Table) 07/19/17 07/19/17 07/19/17 Range/Units 13:25 17:13 20:20 RBC (4.30-5.90) m/uL Hgb (13.0-17.5) gm/dL Hct (39.0-53.0) % MCHC (31.0-37.0) g/dL RDW (11.5-15.5) % Plt Count (150-450) k/uL Lymphocytes # (1.0-4.8) k/uL Eosinophils # (0-0.7) k/uL INR 1.2 H (<1.2) APTT 21.4 L (22.0-30.0) sec Sodium (137-145) mmol/L BUN (9-20) mg/dL Creatinine (0.66-1.25) mg/dL Glucose (74-99) mg/dL POC Glucose (mg/dL) 186 H 163 H (75-99) mg/dL Calcium (8.4-10.2) mg/dL Crossmatch 07/19/17 07/20/17 07/20/17 Range/Units 23:27 04:47 04:50 RBC (4.30-5.90) m/uL Hgb (13.0-17.5) gm/dL Hct (39.0-53.0) % MCHC (31.0-37.0) g/dL RDW (11.5-15.5) % Plt Count (150-450) k/uL Lymphocytes # (1.0-4.8) k/uL Eosinophils # (0-0.7) k/uL INR (<1.2) APTT (22.0-30.0) sec Sodium 135 L (137-145) mmol/L BUN 38 H (9-20) mg/dL Creatinine 3.90 H (0.66-1.25) mg/dL Glucose 145 H (74-99) mg/dL POC Glucose (mg/dL) 169 H 169 H (75-99) mg/dL Calcium 7.7 L (8.4-10.2) mg/dL Crossmatch 07/20/17 07/20/17 07/20/17 Range/Units 05:45 06:30 07:52 RBC 2.49 L (4.30-5.90) m/uL Hgb 6.4 L* (13.0-17.5) gm/dL Hct 21.4 L (39.0-53.0) % MCHC 30.1 L (31.0-37.0) g/dL RDW 17.3 H (11.5-15.5) % Plt Count 129 L (150-450) k/uL Lymphocytes # 0.9 L (1.0-4.8) k/uL Eosinophils # 0.9 H (0-0.7) k/uL INR (<1.2) APTT (22.0-30.0) sec Sodium (137-145) mmol/L BUN (9-20) mg/dL Creatinine (0.66-1.25) mg/dL Glucose (74-99) mg/dL POC Glucose (mg/dL) 142 H (75-99) mg/dL Calcium (8.4-10.2) mg/dL Crossmatch See Detail 07/20/17 Range/Units 12:17 RBC (4.30-5.90) m/uL Hgb (13.0-17.5) gm/dL Hct (39.0-53.0) % MCHC (31.0-37.0) g/dL RDW (11.5-15.5) % Plt Count (150-450) k/uL Lymphocytes # (1.0-4.8) k/uL Eosinophils # (0-0.7) k/uL INR (<1.2) APTT (22.0-30.0) sec Sodium (137-145) mmol/L BUN (9-20) mg/dL Creatinine (0.66-1.25) mg/dL Glucose (74-99) mg/dL POC Glucose (mg/dL) 203 H (75-99) mg/dL Calcium (8.4-10.2) mg/dL Crossmatch Microbiology - Last 24 Hours (Table) 07/14/17 10:21 Blood Culture - Preliminary Blood No Growth after 120 hours 07/14/17 10:14 Blood Culture - Preliminary Blood No Growth after 120 hours Assessment and Plan Assessment: #1 metastatic prostate cancer with skeletal and liver involvement. The tumor itself is extended locally to involve the rectal wall and causing mass effect on the rectum. The patient may be a a candidate for systemic chemotherapy. Consideration was given for palliative radiation therapy however this has not been done as the patient became quite ill and he went into acute hypoxic respiratory failure. Note that the PET scan of the whole body showed a Large hypermetabolic lesion of right-sided prostatic carcinoma with evidence of extra capsular extension into the rectum and into the right pelvis causing osseous distraction of medial right inferior pelvic ramus near pubic symphysis. Metastatic lesion to the liver. #2 Acute rectal bleeding secondary to invading prostate mass. Status post 2 units of packed red blood cell infusions. Current hemoglobin 8.0 #3 Sepsis secondary to MRSA bacteremia. There is a concern for infective endocarditis knowing that the possible mitral valve vegetation. Estimated ejection fraction was around 30%. #4 Acute on chronic renal failure, requiring recent daily hemodialysis. Current creatinine 3.6. #5 acute hypoxic history failure with extensive upper lobe consolidation. Patient improved with hemodialysis ultrafiltration. Nevertheless he continues to have leukocytosis and there is extensive consolidation of the upper lobes bilaterally. He is on IV Zosyn. Concern for MRSA pneumonia is there and based on that the patient will be switched to vancomycin. #6 chronic atrial fibrillation with rapid response currently on an amiodarone orally 400 mg 3 times a day. The patient on a candidate for anticoagulation. #7 Coronary artery disease. #8 Diabetes mellitus. Recurrent on insulin drip for blood sugar control at the rate of 1.5 units an hour #9 Hyperlipidemia. #10 Hypertension. #11 congestion heart failure with ejection fraction of 30% and concern for mitral valve vegetation/endocarditis #12 hypotension currently on few mics of levo fed for hemodynamic support him a rule out secondary to underlying septicemia #13 extensive lower extremities edema and signs of fluid overload. The patient is improving in terms of the fluid balance the patient is currently on lisinopril 10 mg an hour. Daily dialysis and ultrafiltration is also being done #14 anemia, multifactorial. He was stable at 7.9 #15 poor baseline performance and functional status and the patient is a long-term resident. Cor status is DNR/DNI #16 history of shingles. #17 acute urinary tract infection secondary to pseudomonas aeruginosa, patient remains on Zosyn. Recommendation: Continue vancomycin, continue Zosyn, continue dialysis, continue treatment of atrial fibrillation as per cardiology, weaned off norepinephrine, continue hemodialysis as per nephrology, transfer patient out of the ICU to a monitored bed on selective today. Time with Patient: Less than 30
--- NOTE | 2017-07-20 15:50 | PN ---
PROGRESS NOTE Patient is seen for followup for end-stage renal disease. He has been maintained on daily dialysis. Currently patient is sitting up in bed. His hemoglobin this morning was 6.4 g/dL. There is no active bleeding noted. He is being transfused 1 unit packed RBCs. The patient has been maintained on daily dialysis for severe volume overload, which seems to have improved now. He is also off of the Levophed. On examination, blood pressure is 85/37, heart rate 79 per minute. Patient is afebrile. EXAMINATION OF THE HEART: S1, S2. EXAMINATION OF LUNGS: Decreased breath sounds in the bases. ABDOMEN: Soft, non-tender. Examination of lower extremities shows chronic skin changes with edema 2+ bilaterally. Labs show hemoglobin 6.4, sodium 135, potassium 4.1. ASSESSMENT: 1. End-stage renal disease, currently on dialysis on a daily basis for volume overload. 2. Severe volume overload, now significantly improved. 3. Anemia with no obvious active bleeding. Previously patient had GI bleed from invasive prostatic cancer invading the colon. 4. Methicillin-resistant Staphylococcus aeruginosa bacteremia; source unclear. The patient is being followed by ID. There was suspicion for endocarditis. There was no vegetation noted on the transthoracic echocardiogram. Repeat blood cultures are all negative. 5. Pseudomonas urinary tract infection, status post antibiotics. PLAN: Hemodialysis today. The patient can be transferred out of the unit. One unit packed RBCs today. Continue with midodrine. Continue with IV Lasix for now. If his urine output remains below 10 to 15 per hour, we can discontinue the IV Lasix. MMRADHAL / IJN: [id number] /
[2017-07-20 15:58] LABS: Glucose,Whole Blood 153 mg/dL (75-99)
[2017-07-20 16:31] LABS: Anisocytosis Slight; Basophils % (A) 0 %; Eosinophils % (A) 10 %; HCT 25.4 % (39.0-53.0); HGB 7.8 gm/dL (13.0-17.5); Hypochromasia Marked; Lymphocytes # (A) 1.3 k/uL (1.0-4.8); Lymphocytes % (A) 14 %; MCH 26.4 pg (25.0-35.0); MCHC 30.9 g/dL (31.0-37.0); MCV 85.3 fL (80.0-100.0); Mean Platelet Volume 7.5; Monocytes # (A) 0.4 k/uL (0-1.0); Monocytes % (A) 4 %; Neutrophils # (A) 6.5 k/uL (1.3-7.7); Neutrophils % (A) 70 %; Platelet Count 126 k/uL (150-450); Poikilocytosis Moderate; RBC 2.98 m/uL (4.30-5.90); RDW 17.8 % (11.5-15.5); WBC 9.4 k/uL (3.8-10.6)
[2017-07-20] MEDS: MIDODRINE 5 MG TAB PO PRN (17:03)
--- NOTE | 2017-07-20 17:52 | P.PN ---
Progress Note - Text Progress Note Date: 07/20/17 DATE OF SERVICE: 07/20/2017 PRESENTING COMPLAINT: Shortness of breath HISTORY OF PRESENT ILLNESS: 81-year-old male resident of [facility] on the [place] with multiple medical problems who presented with fever and generalized weakness, admitted to the regular medical floor with a suspected UTI infection and sepsis.Patient developed bright red blood per rectum and his systolic blood pressure dropped into the 70s and 80s. Hemoglobin was 7.0. Transferred to the ICU. Received 2 units of packed red cells. Elevated kidney function requiring placement of a temporary hemodialysis catheter and hemodialysis has been initiated by nephrology. Became increasingly more short of breath requiring BiPAP support. Has received multiple doses of Lasix, continues to be on and off the BiPAP, Cardizem drip initiated to help control heart rate, Lasix drip initiated to help diurese the patient, receives Levophed for blood pressure support. Has MRSA bacteremia concerns for possible endocarditis however patient is unable to lie flat for CHASITY. Has metastatic prostate cancer with involvement of the rectum causing a GI bleed. INTERVAL HISTORY: 07/20/2017: Sitting up in the bed, receiving dialysis. Received his new dialysis catheter yesterday. Afebrile, blood pressure is stable, Levophed is off continues on antibiotic therapy for presumptive MRSA. Hemoglobin low this morning receive 1 unit of packed red cells. Appetite remains poor, only intake is the shakes that he received with his meals. Megace was added yesterday. Plans to transfer the patient to [address] [place] [address] possibly later today. 07/19/2017: Sitting up in the bed in chair mode, will receive dialysis later today. Temp right groin catheter. Patient does need a new dialysis catheter placed and patient is agreeable arrangement is being made for this to be done today. Remains on Levophed, 4 g, as well as upper lobe pneumonia assumptive MRSA pneumonia. Nutrition services increased supplements due to patient's poor appetite. Nephrology added Megace. 07/18/2017: Lying in bed,status post dialysis catheter placement, previous catheter was clogged attempts made to declog it and were unsuccessful, receiving dialysis. Remains on 3 L nasal cannula, afebrile, remains in sinus rhythm rate in the low 100s,Ramesh catheter needed to be changed and was performed by urology this morning, antibiotic therapy continues for MRSA septicemia, continues to have hypotension requiring the use of pressors, Lasix drip was discontinued, appetite is poor eating very little of his meals but drinking his ensure shakes. 07/17/2017: Patient lying in bed leaning over to the left side of the bed tired appearing complains of pain. Remains on 3 L nasal cannula, afebrile, converted to sinus rhythm yesterday, heart rate remains under control, antibiotic therapy continues for MRSA septicemia hemodialysis scheduled for today as they were unsuccessful yesterday and taking off the full amount. Today's session they had much difficulty with the catheter, TPA placed in the catheter and an attempt will be made to try and dialyze the patient tomorrow if unsuccessful consideration needs to be given to placement of a new dialysis catheter. Levophed continues at 4 g, Lasix drip at 10 mL, appetite is poor is only drinking his ensure shakes. 07/16/2017: Patient lying in bed and is tired appearing, having increasing complaints of pain. Remains on 3 L nasal cannula, afebrile,remains tachycardic, antibiotic therapy continues for MRSA septicemia, hemodialysis later today. Levophed continues at 6 g, insulin drip discontinued, Lasix drip at 10 ml. Appetite poor primarily drinks his ensure shakes. Antibiotics continue in the form of Zosyn and vancomycin. 07/15/2017: Patient lying in bed appears tired today complaining to his left side, remains on 3 L nasal cannula, afebrile, antibiotic therapy continues for MRSA septicemia. Next hemodialysis will be performed on Sunday. Continues to be tachycardic is on and off the Levophed at 5 g an hour for blood pressure support, Lasix drip continues at 10 mg an hour, renal function remains impaired but does have good urine output. Poor appetite, takes primarily his ensure shakes. Antibiotic therapy in the form of Zosyn and vancomycin. Last BM 201707/14/2017: Patient lying in bed, breathing easier. Remains on 3 L nasal cannula, afebrile , antibiotic therapy continues for MRSA septicemia. Hemodialysis done today with 3.5 L removed, patient did become more tachycardic during the procedure. His baseline rate is about 120 beats a minute irregular, blood pressure is in the 110s, Levophed infusion at 2 mics a minute, Lasix drip continues at 10 mg an hour, renal function continues to be impaired. Appetite is poor, does drink his ensure. 07/13/2017: Patient lying in bed receiving hemodialysis, breathing is somewhat easier, heart rate remains elevated. Had an episode of chest discomfort and received Dilaudid which relieved his pain. Pain was located on the right side of the chest and reproducible with palpation. Remains on 5 L nasal cannula did not require any BiPAP support overnight. Hemodialysis was successful removing 3 L of fluid yesterday patient is scheduled for another round of hemodialysis today. Lasix drip continues at 10 mg an hour, remains in atrial fibrillation amiodarone drip at 0.5 mg a minute, norepinephrine was on and off throughout the night. Currently at 4 g. Follow-up blood cultures negative for growth. Remains on daptomycin and ciprofloxacin. REVIEW OF SYSTEMS: Done for constitutional ,cardiovascular, GI, pulmonary with relevant findings as above. CURRENT MEDICATIONS Tylenol, DuoNeb, Cordarone, Casodex, Questran, Aranesp, Colace, Lasix, hydromorphone, NovoLog, Imodium, Ativan, Megace, melatonin, Lopressor, ProAmatine, MiraLAX, PHYSICAL EXAM VITAL SIGNS: Temperature 96.3, pulse 60, respiratory rate 12, blood pressure 116/58, oxygen saturation 99% on 3 L GENERAL APPEARANCE: Lying in bed, tired appearing, more awake HEENT: Pupils equal. Conjunctiva normal. JVD not raised. Mass not palpable. RESPIRATORY: Respiratory effort increased. Diminished bilaterally basilar crackles. CARDIOVASCULAR: First and second sounds irregular. Moderate edema. ABDOMEN: Soft. Liver and spleen not palpable. No tenderness. No mass palpable. PSYCHIATRY: Alert and oriented x3. Mood and affect somewhat anxious appearing. INTEGUMENT: Right IJ dialysis catheter placement, right upper arm PICC line . INVESTIGATIONS: LABS: Hemoglobin 6.4, BUN 38, creatinine 3.90, Accu-Cheks noted. Blood cultures: 07/02/2017: MRSA Urine culture: 07/02/2017: Pseudomonas aeruginosa Blood culture: 07/04/2017 repeat: Methicillin-resistant staph aureus Blood culture 07/04,,: Negative for any growth after 144 hours Sputum culture: 07/14/2017: Destiny glabrata Blood culture: 07/14/2017: Negative for any growth after 144 hours. ASSESSMENT: -Methicillin-resistant Staphylococcus aeruginosa bacteremia with suspicion for underlying endocarditis, pending transesophageal echocardiogram -Possible staphylococcal lung infection/MRSA pneumonia secondary to chest x-ray findings to the upper lobe apices, slow to respond -Volume overload, multifactorial, slow to respond -Anemia, multifactorial, including that of chronic kidney disease and some blood loss, 6.4 today, received 1 unit of packed cells -Metabolic acidosis from acute kidney injury, improved with dialysis -Acute kidney injury from acute tubular necrosis, including hypertension. -Chronic kidney disease, prostate leak from nephrosclerosis. -Hypotensive shock. possibly cardiogenic Levophed off. -Persistent atrial fibrilation uncontrolled on by mouth amiodarone. -Metastatic prostate cancer with involvement of the bone including the inferior pubic rami, liver on PET scan, and the rectum causing rectal bleeding. The patient is getting palliative radiation treatment and Casodex. -Acute blood loss anemia multifactorial having received 1 units packed red blood cells. -Diabetes mellitus type 2 on insulin drip -Hypertension, history of. -Hyperlipidemia. -Acute congestive heart failure from systolic dysfunction ejection fraction 30- 35% could be arrhythmia reduced, slow to respond -Acute hypoxic respiratory failure status post ventilator support, patient currently on 3 L of oxygen, slow to respond -Acute renal failure, likely acute tubular necrosis, now requiring hemodialysis , slow to respond -Acute urinary tract infection with Pseudomonas, status post antibiotic, resolved -CODE STATUS: No code PLAN: Antibiotic therapy continues Zosyn and vancomycin. Levophed is currently off, IV Lasix continues, Hemodialysis per nephrology. Patient is doing better and stable enough for transfer to [facility]. now that Levophed is off. Overall prognosis continues to be quite poor particularly with multiple comorbidities and metastatic prostate cancer. Plan of care discussed with the patient the bedside we will follow closely. 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 Ortiz
[2017-07-20 19:58] LABS: Glucose,Whole Blood 137 mg/dL (75-99)
--- NOTE | 2017-07-20 22:20 | PN ---
PROGRESS NOTE DATE OF SERVICE: 07/20/2016. REASON FOR FOLLOWUP: 1. MRSA bacteremia pneumonia, possible pneumonitis. 2. Pneumonia. INTERVAL HISTORY: The patient is afebrile, has been breathing slightly comfortably. Has been undergoing dialysis. No nausea, no vomiting. No chest pain, occasional cough which is dry in nature. No abdominal pain. No diarrhea. EXAMINATION: Blood pressure 114/51 with a pulse of 68, temperature of 98.1. He is 96% on 3L nasal cannula. General description is an elderly male lying in bed in no distress. RESPIRATORY SYSTEM: Unlabored breathing with decreased breath sounds in the bases. No wheeze. HEART: S1, S2. Regular rate and rhythm. ABDOMEN: Soft. No tenderness. LABS: Hemoglobin 7.8, white count 9.4. DIAGNOSTIC IMPRESSION AND PLAN: Patient with methicillin-resistant Staphylococcus aureus bacteremia, concern for possible viral endocarditis. Unfortunately, CHASITY could not be completed because of his underlying respiratory status with developing renal failure and possibility of pneumonia. The patient's white count is currently normalized, responded to the vancomycin and tazobactam, which will be continued over the weekend and continue supportive care. MMODL / IJN: [id number] /
--- NOTE | 2017-07-20 22:35 | PN ---
PROGRESS NOTE DATE OF SERVICE: 07/20/2017 ATTENDING NOTE: The patient seen and examined by me. I discussed with my nurse practitioner, Ms. Hammond. Patient is in the ICU. The patient's Levophed was taken off last night. Eating still small amounts. The patient has been in sinus rhythm on 3L of oxygen nasal cannula, tired-appearing. LUNGS: Decreased breath sounds. Edema present. ASSESSMENT: Multiple medical problems, includin. Methicillin-resistant Staphylococcus aureus bacteremia. 2. End-stage kidney disease on hemodialysis. 3. Metastatic prostate cancer. Prognosis is guarded. The patient did get a permanent dialysis catheter yesterday. Follow. MMODL / IJN: [id number] /
[2017-07-20] MEDS: HYDROmorphone 0.5 MG/0.5 ML SYRINGE IVP PRN (23:26)
[2017-07-21 00:04] LABS: Glucose,Whole Blood 143 mg/dL (75-99)
[2017-07-21] MEDS: INSULIN ASPART 100 UNIT/ML 1 ML 10 ML VIAL SQ SCH ×5 (00:33→20:49)
[2017-07-21] MEDS: HYDROmorphone 0.5 MG/0.5 ML SYRINGE IVP PRN ×5 (02:12→21:00)
[2017-07-21 04:03] LABS: Glucose,Whole Blood 117 mg/dL (75-99)
[2017-07-21 04:56] LABS: Anisocytosis Slight; Basophils % (A) 0 %; Eosinophils # (A) 0.9 k/uL (0-0.7); Eosinophils % (A) 11 %; HCT 24.7 % (39.0-53.0); HGB 7.5 gm/dL (13.0-17.5); Hypochromasia Marked; Lymphocytes # (A) 1.2 k/uL (1.0-4.8); Lymphocytes % (A) 14 %; MCH 26.1 pg (25.0-35.0); MCHC 30.3 g/dL (31.0-37.0); MCV 86.2 fL (80.0-100.0); Mean Platelet Volume 7.5; Monocytes # (A) 0.2 k/uL (0-1.0); Monocytes % (A) 3 %; Neutrophils # (A) 5.9 k/uL (1.3-7.7); Neutrophils % (A) 71 %; Platelet Count 124 k/uL (150-450); Poikilocytosis Moderate; RBC 2.86 m/uL (4.30-5.90); RDW 16.6 % (11.5-15.5); WBC 8.3 k/uL (3.8-10.6)
[2017-07-21 05:12] LABS: Calcium 7.7 mg/dL (8.4-10.2); Magnesium 1.9 mg/dL (1.6-2.3); Phosphorus 3.3 mg/dL (2.5-4.5); Potassium 3.4 mmol/L (3.5-5.1)
[2017-07-21] MEDS ORDERED: POTASSIUM CHLORIDE ER 20 MEQ TAB.ER PO SCH ×2 (06:00→06:02)
[2017-07-21] MEDS: MIDODRINE 5 MG TAB PO SCH ×3 (06:36→20:49)
[2017-07-21] MEDS: IPRATROPIUM-ALBUTEROL 3 ML NEB INHALATION SCH ×4 (07:26→19:25)
[2017-07-21 08:00] LABS: Glucose,Whole Blood 130 mg/dL (75-99)
--- NOTE | 2017-07-21 08:16 | P.PN ---
Subjective Progress Note Date: 07/21/17 Principal diagnosis: This is a 81-year-old male followed up because of acute kidney injury, secondary to prerenal from decreased intake. He is also known with chronic kidney disease with a baseline creatinine of 2.5. He subsequently has been on dialysis now for a few days. He remains in the ICU. Is not on any pressors He continues to complains of fatigue tiredness seems very depressed. He says nothing is improved since starting dialysis. His urine output is minimal in spite of being on Lasix. In the past he was diagnosed with prostatic CA with involvement of rectum and rectal bleeding with loose stools which is frequent and multiple. Patient continues to complain of rectal pain otherwise denies any fever chills he is weak but denies any dizziness. No cough shortness of breath chest pain. His blood pressure is in [id number] systolic. 24-hour intake is documented at 330 mL only. He has a Ramesh catheter. Intake is documented 0. He has an indwelling Ramesh catheter He is known with coronary artery disease diabetes hypertension Objective - Vital Signs Vital signs: Vital Signs Temp 97.8 F 07/21/17 04:00 Pulse 66 07/21/17 07:37 Resp 20 07/21/17 07:00 BP 130/55 07/21/17 07:00 Pulse Ox 97 07/21/17 07:00 Intake & Output 07/20/17 07/21/17 07/21/17 18:59 06:59 18:59 Intake Total 607.5 20 Output Total 44 2692 Balance 563.5 -2672 Weight 107.9 kg 105.4 kg Intake: IV 297.5 20 Piperacillin-Tazobactam 3 117.5 .375 gm In Dextrose/Water 1 50ml.bag @ 12.5 mls/hr IVPB Q12HR NU[facility]AT Rx#: [id number] Sodium Chloride 0.9% 1, 180 20 000 ml @ 20 mls/hr IV . Q24H NUZHAT Rx#:[id number] Blood Product 310 Rc As-1 Unit 310 [id number] Output: Urine 40 190 Stool 4 2 Other 2500 Other: Voiding Method Indwelling Catheter Indwelling Catheter # Voids 1 HEENT exam no JVP neck is supple no facial asymmetry Lungs are clear to auscultation percussion good air entry bilaterally. Heart sounds are unremarkable no murmur rub gallop Abdomen soft nontender. Extremity exam was trace edema Neurologically awake alert oriented but very depressed moves all his extremities. - Labs CBC & Chem 7: 07/21/17 04:35 07/21/17 04:35 Labs: Abnormal Lab Results - Last 24 Hours (Table) 07/20/17 07/20/17 07/20/17 Range/Units 06:30 12:17 15:57 RBC (4.30-5.90) m/uL Hgb (13.0-17.5) gm/dL Hct (39.0-53.0) % MCHC (31.0-37.0) g/dL RDW (11.5-15.5) % Plt Count (150-450) k/uL Eosinophils # (0-0.7) k/uL Sodium (137-145) mmol/L Potassium (3.5-5.1) mmol/L BUN (9-20) mg/dL Creatinine (0.66-1.25) mg/dL Glucose (74-99) mg/dL POC Glucose (mg/dL) 203 H 153 H (75-99) mg/dL Calcium (8.4-10.2) mg/dL Crossmatch See Detail 07/20/17 07/20/17 07/21/17 Range/Units 16:15 19:57 00:01 RBC 2.98 L (4.30-5.90) m/uL Hgb 7.8 L (13.0-17.5) gm/dL Hct 25.4 L (39.0-53.0) % MCHC 30.9 L (31.0-37.0) g/dL RDW 17.8 H (11.5-15.5) % Plt Count 126 L (150-450) k/uL Eosinophils # 1.0 H (0-0.7) k/uL Sodium (137-145) mmol/L Potassium (3.5-5.1) mmol/L BUN (9-20) mg/dL Creatinine (0.66-1.25) mg/dL Glucose (74-99) mg/dL POC Glucose (mg/dL) 137 H 143 H (75-99) mg/dL Calcium (8.4-10.2) mg/dL Crossmatch 07/21/17 07/21/17 07/21/17 Range/Units 04:01 04:35 04:35 RBC 2.86 L (4.30-5.90) m/uL Hgb 7.5 L (13.0-17.5) gm/dL Hct 24.7 L (39.0-53.0) % MCHC 30.3 L (31.0-37.0) g/dL RDW 16.6 H (11.5-15.5) % Plt Count 124 L (150-450) k/uL Eosinophils # 0.9 H (0-0.7) k/uL Sodium 135 L (137-145) mmol/L Potassium 3.4 L (3.5-5.1) mmol/L BUN 24 H (9-20) mg/dL Creatinine 3.00 H (0.66-1.25) mg/dL Glucose 111 H (74-99) mg/dL POC Glucose (mg/dL) 117 H (75-99) mg/dL Calcium 7.7 L (8.4-10.2) mg/dL Crossmatch 07/21/17 Range/Units 07:59 RBC (4.30-5.90) m/uL Hgb (13.0-17.5) gm/dL Hct (39.0-53.0) % MCHC (31.0-37.0) g/dL RDW (11.5-15.5) % Plt Count (150-450) k/uL Eosinophils # (0-0.7) k/uL Sodium (137-145) mmol/L Potassium (3.5-5.1) mmol/L BUN (9-20) mg/dL Creatinine (0.66-1.25) mg/dL Glucose (74-99) mg/dL POC Glucose (mg/dL) 130 H (75-99) mg/dL Calcium (8.4-10.2) mg/dL Crossmatch Microbiology - Last 24 Hours (Table) 07/14/17 10:21 Blood Culture - Final Blood No Growth after 144 hours 07/14/17 10:14 Blood Culture - Final Blood No Growth after 144 hours Assessment and Plan Assessment: Impression. 1. Acute kidney injury secondary to volume depletion and low blood pressure. Subsequently in the hospital developed bacteremia with MRSA dated 07/03/2017 as well as a UTI with Pseudomonas. His nondialysis dependent. Last dialysis was yesterday. 2. Mild hyponatremia sodium from dialysis dependent acute kidney injury and chronic kidney disease 4. 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 5. Anemia of chronic illness. Hemoglobin is down to 7.5. Recommendation. Discontinue Lasix as he is not making urine. Agree with small doses of antidepressant Physiotherapy. Dialysis is on Sunday Monitor hemoglobin calcium phosphorus.
[2017-07-21] MEDS: AMIODARONE 200 MG TAB PO SCH (08:27)
[2017-07-21] MEDS: FUROSEMIDE 10 MG/ML 10 ML VIAL IV SCH ×2 (08:28→20:49)
[2017-07-21] MEDS: BICALUTAMIDE 50 MG TAB PO SCH ×2 (08:28→20:49)
[2017-07-21] MEDS: METOPROLOL TARTRATE 25 MG TAB PO SCH ×2 (08:29→20:50)
[2017-07-21] MEDS: MEGESTROL 400 MG/10 ML CUP PO SCH (08:30)
[2017-07-21] MEDS: PANTOPRAZOLE 40 MG TABLET PO SCH (08:30)
[2017-07-21] MEDS: PIPERACILLIN-TAZOBACTAM 3.375 GM in DEXTROSE/WATER 1 50ML.BAG IVPB SCH ×2 (08:30→20:50)
[2017-07-21] MEDS: CHOLESTYRAMINE (WITH SUGAR) 4 GM PACKET PO SCH ×2 (08:31→17:47)
[2017-07-21] MEDS: POTASSIUM CHLORIDE ORAL LIQUID 40 MEQ/30 ML CUP PO SCH (08:31)
[2017-07-21] MEDS: PARoxetine 20 MG TAB PO SCH (10:21)
--- NOTE | 2017-07-21 10:48 | PN ---
PROGRESS NOTE HISTORY: Mr. Leslie is an 81-year-old male who has prostate cancer with metastasis, presented with GI bleeding. Had episode of atrial fibrillation. He continues to be in sinus mechanism. Hemodynamically, he is off the norepinephrine now for over 36 hours. He denies any chest pain. He feels tired. He has no nausea or vomiting. His appetite has not been very good. He has continued to be, at this time, on amiodarone 200 mg daily, Lasix 80 mg IV every 12 hours in addition to metoprolol tartrate 25 mg twice a day. PHYSICAL EXAMINATION: Blood pressure 125/50 with a heart rate in the 60s. LUNGS: Clear heart rate rhythm S1, S2. No S3 with systolic murmur. ABDOMEN: Soft, obese, nontender. EXTREMITIES: +1 edema bilaterally. LAB DATA: BUN and creatinine 24 and 3, potassium 3.4, hemoglobin of 7.5. IMPRESSION: 1. Prostate cancer with metastasis to renal failure. 2. Paroxysmal atrial fibrillation, remains normal sinus rhythm. 3. Cardiomyopathy on presentation with a question of mitral valve vegetations, but no evidence of active signs of endocarditis at this time. RECOMMENDATIONS: From the cardiac standpoint, we will continue on present dose of amiodarone and beta trinity. He is not a candidate for anticoagulation because of GI bleeding. We will follow his blood pressure and adjust his beta trinity. MMODL / IJN: [id number] /
--- NOTE | 2017-07-21 11:12 | P.PN ---
Subjective Progress Note Date: 07/21/17 Principal diagnosis: Acute MRSA sepsis and bacteremia. 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 This is a pleasant 81-year-old gentleman who resides at an extended care facility who has a history of coronary artery disease, paroxysmal atrial fibrillation, diabetes mellitus, hyperlipidemia, hypertension, shingles, MRSA infection in the blood and urine. 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 A recent PET scan revealed large hypermetabolic lesion presumed right-sided prostatic carcinoma there is also evidence of extra Chiller extension into the rectum and into the right pelvis causing osseous destruction of medial right MP a pelvic ramus near pubic symphysis. There is metastatic lesion to the liver as well. Patient was readmitted yesterday with fever and generalized weakness. Gentleman admitted to the regular medical floor with suspected urinary tract infection and sepsis. Last evening he developed bright red bleeding from the rectum approximately 50 MLS. He did have a drop in his systolic blood pressure into the 70s and 80s. His hemoglobin was 7.0. He was transferred here to the intensive care unit. He did not require any pressors. Did receive 2 units of packed red blood cells in his current hemoglobin is 8.6. White count 11.7. Creatinine 3.10. AST 158, ALT 106 Blood cultures are revealing presumptive MRSA. His chest x-ray shows mild fluid volume overload with small effusions. He is maintaining O2 saturations in the upper 90s on 2 L/m per nasal cannula. On 07/10/2017 patient is seen in follow-up on medical surgical floor. He developed an acute episode of respiratory distress, severe orthopnea, and acute dyspnea. His lab work today was reviewed, there is no evidence of leukocytosis , WBC is 7.7, hemoglobin is 8.1, his sodium is 133, his carbon dioxide was 18, his BUN is 55, and creatinine is 5.40. Nephrology has discussed initiation of hemodialysis with him today, patient is in agreement. His oxygenation requirements have increased, this morning he was on 2 L per nasal cannula with O2 sat at 97%, through the day and has deteriorated, and patient is not requiring 5-6 L per nasal cannula with O2 sat at 92-93%. Lung sounds are positive for coarse rales throughout the lung doan bilaterally. He remains afebrile. No other episodes of rectal bleeding was observed. Patient was actually due to start radiation therapy for his prostate cancer today, however in view of his worsening respiratory status, was put on hold. Stat chest x-ray was obtained, and shows worsening decompensated congestive heart failure and confluent pulmonary edema. 80 mg of Lasix IV was given, with no response, patient only made 10 mL of urine. Patient has been progressively more oliguric over the last few days. Has been complaining of worsening appetite and weakness. Dr. Escobedo was consulted for placement of hemodialysis catheter, patient is unable to lay down flat, patient may have to go on the BiPAP support and hemodialysis catheter may have to be placed in the femoral area. We will transfer the patient to the intensive care, and request Dr. Escobedo to place a hemodialysis catheter STEPHEN and initiate hemodialysis as soon as possible. On 07/11/2017 patient remains in the intensive care BiPAP support with pressures 12.5 and FiO2 40%. He had hemodialysis last night would removal of 3 L of fluid, he is scheduled for hemodialysis again today. Is moderately short of breath, lung sounds are positive for coarse rhonchi, rales. And to produce some urine, 10-20 mL per hour. Chest x-ray from 07/11/2017 has been reviewed and shows airspace disease consistent with CHF and pulmonary edema. Support was reviewed, WBCs are up to 14, hemoglobin is 9, serum sodium is 134, serum potassium is 4.1, B1 is 46, creatinine is 5.2, with CO2 of 17. Bilateral lower extremities positive for 1+ pitting edema. Patient was given 80 mg of Lasix with modest response, about 125 mL in the first hour after administration. Continues on ciprofloxacin for Pseudomonas in the urine, daptomycin for the positive blood cultures with MRSA. On 07/12/2017 patient is seen again in the intensive care. Wore the BiPAP mask intermittently last night, this morning he is on 6 L of oxygen, per high flow nasal cannula. Denies worsening dyspnea at rest, still using accessory abdominal muscles. Lung sounds are much improved from yesterday's exam, positive for a few scattered expiratory wheezes over posterior lower basis, but no rhonchi no rales auscultated. Last night patient went into atrial fibrillation with rapid ventricular rate with a rate of 1:30 to 140 BPM. Patient was started on Cardizem drip at 10 mg/hour. He had 2 L removed during hemodialysis yesterday evening, her symptoms. He was started on Lasix drip at 10 mg/hr per nephrology. His urine output has improved, averaging 60-100 mL per hour. Overall his net fluid balance is -2800 mL in the last 24 hours. He is currently having another hemodialysis treatment, with a target removal of 3 L today. Patient is hypotensive with systolic in the 70s and 80s, still tachycardic with a rate of 120-120 BPM. May have to restart vasopressor support with levophed. Chest x-ray from December 30 was reviewed and shows diffuse wheezes bilaterally, pulmonary edema versus diffuse pneumonia. Cultures are negative, patient has MRSA bacteremia, concern for possible endocarditis. Currently, covered with daptomycin. Cardiology is unable to proceed with CHASITY the view of patient's respiratory status. Continue oral Cipro for pseudomonal unit tract infection. Overall the patient states his breathing is easier today. The patient is seen again today 07/13/2017 in follow-up in the intensive care unit. He is awake and alert in no acute distress. He did have an episode of chest discomfort. EKG revealed no significant changes. He was given Dilaudid which his pain was relieved. The pain was somewhat atypical it was on the right side and reproducible with palpation. He is down to 5 L/m per nasal cannula to maintain O2 saturations in the 90s. He did not require BiPAP support last night. He had over 3 L removed yesterday via dialysis and another 4 L this morning. His chest x-ray continues to show bilateral infiltrates more so on the right upper lung. He is continued on a Lasix drip at 10 mg per hour. He remains in atrial fibrillation. He remains on amiodarone drip at 0.5 mg/ m. He was off the norepinephrine throughout the night. It was resumed early this morning during dialysis at 6 mcg/m. Currently down to 4 g. Follow-up blood cultures reveal no growth. Initial blood cultures were positive for MRSA. Urine was positive for Pseudomonas. He remains on daptomycin and Ciprofloxacillin. White count 20.0. Hemoglobin 7.6. Creatinine 3.90. His appetite is poor. He is drinking Ensure. On 07/14/2017 and seeing this patient for a follow-up. The patient is awake and alert. Currently is on 3 L of oxygen by nasal cannula. Chest x-ray still showing upper lobe consolidation bilaterally. The patient has some limited leukocytosis. The patient has no fever. The patient remains on daptomycin regarding previous MRSA septicemia. The patient underwent hemodialysis this morning with ultrafiltration. A total of 3.5 L of fluid was removed on today's ultrafiltration. During the time, the patient became more tachycardic with underlying atrial fibrillation rhythm. His current rate is around 120 irregular. His blood pressure is in the 110s and the patient has a map of above 65. He is currently on norepinephrine infusion at 2 mics. He is producing adequate amount of urine output in the order of more than 50 mL an hour and the patient is on Lasix drip at 10 mg an hour. The renal function is still impaired with a creatinine of 3.4. The patient is tolerating a sure. He is having loose bowel movements. No altered mentation at this point. No other significant events overnight. On 07/15/2017, them seeing this patient for a follow-up. Awake and alert. Chest x-ray still showing extensive consolidation of the upper lobes bilaterally. There is a concern of staphylococcal pneumonia and for that reason the daptomycin was discontinued and the patient was switched to IV vancomycin. The first dose will be given to him today. The patient remains pressor dependent at 5 mics of levo fed. The patient is on amiodarone orally and the patient remains in atrial fibrillation and at times is having rapid ventricular response. The highest heart rate has been between 120 and 1:30. The patient is producing adequate amount of urine output. He is on Lasix drip at 10 mg an hour. Nephrology is on the case. No recommendations for hemodialysis today. Repeat blood cultures of been sent. The patient is awake and alert and communicating. He requested a DNR/DNI CODE STATUS. He is having adequate bowel moments. He has loose soft liquidy BMs. His oral intake is minimal and is mainly relying on a sure shakes. No other significant events over the past 24 hours. He is quite weak and debilitated at this point. Reevaluated today on 07/16/2017, patient is feeling a bit better, pain seems to be a bit better controlled with Dilaudid, remains on antibiotics in the form of vancomycin and Zosyn, remains on 5-7 g of levo fed, patient looks chronically ill weak and debilitated. Remains also on Lasix drip. Labs were reviewed WBC count is 17.6, improving. Hemoglobin is 8, electrolytes are normal BUN is 52 creatinine is 4.0. Patient is still receiving daily dialysis mostly for fluid overload, remains nonoliguric and he remains on Lasix drip. Reevaluated today on 07/17/2017, patient supposedly had some deterioration in mental status last night, but does far as I'm concerned, his mental status has been the same all along over the last 2 days. At any rate code stroke was called, and patient underwent CT scanning of the brain which came back nondiagnostic. Patient seems to have what looks like to metabolic encephalopathy related to his multiple metabolic problems as listed below. Today the patient is about the same, he is lethargic, arousable, follows simple instructions, oriented to place and time. WBC count is 21.6 hemoglobin is 7.9 electrolytes were normal BUN is 54 creatinine 4.10, patient will likely be dialyzed again today. Chest x-ray is suggestive of fluid overload and upper lobe pneumonia bilaterally. Patient was reevaluated today on 07/18/2017, today he seems better than he has been over the last 1 week. Seems to be more awake, more alert, follows all simple instructions, in no form of respiratory distress. Patient was seen by nephrology, and they are recommending a permanent dialysis catheter to be placed however patient may decline having such procedure, I believe a family meeting would have to be organized and final decision would have to be made whether to proceed with permanent hemodialysis are not considering the patient' s all other medical issues and morbidities. Family and the patient may consider comfort care measures, and if not I believe we should proceed with permanent dialysis catheter placement. Chest x-ray today is showing some improvement in his bilateral upper lobe disease, CBC was reviewed WBC count is 14.7 hemoglobin is 7.5. Basic metabolic profile is normal BUN is 48 creatinine is 4.0, patient is scheduled to undergo dialysis again today. Patient was reevaluated today on 07/19/2017, seems to be doing much better, patient is agreeable to have a permanent dialysis catheter placed, and I believe that will be arranged for to be done today. In the meantime remains on multiple meds, remains on a very small tiny dose of norepinephrine to maintain adequate blood pressure. His dose is 4 g. CBC showed a hemoglobin of 7.2 electrolytes are normal BUN is 45 creatinine 4.20. Patient remains on antibiotics for his upper lobe pneumonia presumptive MRSA pneumonia. Reevaluated today on 07/20/2017, patient had a permanent dialysis catheter placed yesterday. Continues to have somedisease in the upper lobes as noted on the chest x-ray,but clinically the patient is relatively asymptomatic. Hemoglobin today is 6.4, patient is receiving a unit of packed RBCs today. His blood loss is multifactorial. Most likely related to his underlying renal failure, blood draws, may or may have some ongoing minimal GI bleeding.clinically however the patient is doing great, and he has been gradually getting better on a daily basis. Today he is off norepinephrine, and I plan to transfer the patient to a monitor bed on selective. Reevaluated today on 07/21/2017, remains off norepinephrine, hemodynamically stable, patient seems a bit depressed, hence Paxil was started. Hemoglobin is 7.5 WBC count is 8.3 electrolytes are normal except for potassium of 3.4 BUN is 24 creatinine is 3.0. No chest x-ray was done today. Patient denies any shortness of breath, he feels generally weak. Objective - Vital Signs Vital signs: Vital Signs Temp 97.8 F 07/21/17 08:00 Pulse 61 07/21/17 09:00 Resp 15 07/21/17 09:00 BP 125/46 07/21/17 09:00 Pulse Ox 99 07/21/17 09:00 Intake & Output 07/20/17 07/21/17 07/21/17 18:59 06:59 18:59 Intake Total 607.5 20 Output Total 44 2692 Balance 563.5 -2672 Weight 107.9 kg 105.4 kg Intake: IV 297.5 20 Piperacillin-Tazobactam 3 117.5 .375 gm In Dextrose/Water 1 50ml.bag @ 12.5 mls/hr IVPB Q12HR [facility] Rx#: [id number] Sodium Chloride 0.9% 1, 180 20 000 ml @ 20 mls/hr IV . Q24H [facility] Rx#:[id number] Blood Product 310 Rc As-1 Unit 310 [id number] Output: Urine 40 190 Stool 4 2 Other 2500 Other: Voiding Method Indwelling Catheter Indwelling Catheter Indwelling Catheter # Voids 1 - Exam GENERAL EXAM: Awake, alert, in no distress HEAD: Normocephalic. EYES: Normal reaction of pupils, equal size. NOSE: Clear with pink turbinates. THROAT: No erythema or exudates. NECK: No masses, no JVD. CHEST: No chest wall deformity. LUNGS: Equal air entry with crackles posterior bases. CVS: S1 and S2 normal with no audible murmur, irregular rhythm. ABDOMEN: No hepatosplenomegaly, normal bowel sounds, no guarding or rigidity. SPINE: No scoliosis or deformity SKIN: No rashes CENTRAL NERVOUS SYSTEM: Alert oriented and definitely more and more awake. EXTREMITIES: There is bilateral peripheral edema. No clubbing, no cyanosis. Peripheral pulses are intact. - Labs CBC & Chem 7: 07/21/17 04:35 07/21/17 04:35 Labs: Abnormal Lab Results - Last 24 Hours (Table) 07/20/17 07/20/17 07/20/17 Range/Units 12:17 15:57 16:15 RBC 2.98 L (4.30-5.90) m/uL Hgb 7.8 L (13.0-17.5) gm/dL Hct 25.4 L (39.0-53.0) % MCHC 30.9 L (31.0-37.0) g/dL RDW 17.8 H (11.5-15.5) % Plt Count 126 L (150-450) k/uL Eosinophils # 1.0 H (0-0.7) k/uL Sodium (137-145) mmol/L Potassium (3.5-5.1) mmol/L BUN (9-20) mg/dL Creatinine (0.66-1.25) mg/dL Glucose (74-99) mg/dL POC Glucose (mg/dL) 203 H 153 H (75-99) mg/dL Calcium (8.4-10.2) mg/dL 07/20/17 07/21/17 07/21/17 Range/Units 19:57 00:01 04:01 RBC (4.30-5.90) m/uL Hgb (13.0-17.5) gm/dL Hct (39.0-53.0) % MCHC (31.0-37.0) g/dL RDW (11.5-15.5) % Plt Count (150-450) k/uL Eosinophils # (0-0.7) k/uL Sodium (137-145) mmol/L Potassium (3.5-5.1) mmol/L BUN (9-20) mg/dL Creatinine (0.66-1.25) mg/dL Glucose (74-99) mg/dL POC Glucose (mg/dL) 137 H 143 H 117 H (75-99) mg/dL Calcium (8.4-10.2) mg/dL 07/21/17 07/21/17 07/21/17 Range/Units 04:35 04:35 07:59 RBC 2.86 L (4.30-5.90) m/uL Hgb 7.5 L (13.0-17.5) gm/dL Hct 24.7 L (39.0-53.0) % MCHC 30.3 L (31.0-37.0) g/dL RDW 16.6 H (11.5-15.5) % Plt Count 124 L (150-450) k/uL Eosinophils # 0.9 H (0-0.7) k/uL Sodium 135 L (137-145) mmol/L Potassium 3.4 L (3.5-5.1) mmol/L BUN 24 H (9-20) mg/dL Creatinine 3.00 H (0.66-1.25) mg/dL Glucose 111 H (74-99) mg/dL POC Glucose (mg/dL) 130 H (75-99) mg/dL Calcium 7.7 L (8.4-10.2) mg/dL Microbiology - Last 24 Hours (Table) 07/14/17 10:21 Blood Culture - Final Blood No Growth after 144 hours 07/14/17 10:14 Blood Culture - Final Blood No Growth after 144 hours Assessment and Plan Assessment: #1 metastatic prostate cancer with skeletal and liver involvement. The tumor itself is extended locally to involve the rectal wall and causing mass effect on the rectum. The patient may be a a candidate for systemic chemotherapy. Consideration was given for palliative radiation therapy however this has not been done as the patient became quite ill and he went into acute hypoxic respiratory failure. Note that the PET scan of the whole body showed a Large hypermetabolic lesion of right-sided prostatic carcinoma with evidence of extra capsular extension into the rectum and into the right pelvis causing osseous distraction of medial right inferior pelvic ramus near pubic symphysis. Metastatic lesion to the liver. #2 Acute rectal bleeding secondary to invading prostate mass. Status post 2 units of packed red blood cell infusions. Current hemoglobin 8.0 #3 Sepsis secondary to MRSA bacteremia. There is a concern for infective endocarditis knowing that the possible mitral valve vegetation. Estimated ejection fraction was around 30%. #4 Acute on chronic renal failure, requiring recent daily hemodialysis. Current creatinine 3.6. #5 acute hypoxic history failure with extensive upper lobe consolidation. Patient improved with hemodialysis ultrafiltration. Nevertheless he continues to have leukocytosis and there is extensive consolidation of the upper lobes bilaterally. He is on IV Zosyn. Concern for MRSA pneumonia is there and based on that the patient will be switched to vancomycin. #6 chronic atrial fibrillation with rapid response currently on an amiodarone orally 400 mg 3 times a day. The patient on a candidate for anticoagulation. #7 Coronary artery disease. #8 Diabetes mellitus. Recurrent on insulin drip for blood sugar control at the rate of 1.5 units an hour #9 Hyperlipidemia. #10 Hypertension. #11 congestion heart failure with ejection fraction of 30% and concern for mitral valve vegetation/endocarditis #12 hypotension currently on few mics of levo fed for hemodynamic support him a rule out secondary to underlying septicemia #13 extensive lower extremities edema and signs of fluid overload. The patient is improving in terms of the fluid balance the patient is currently on lisinopril 10 mg an hour. Daily dialysis and ultrafiltration is also being done #14 anemia, multifactorial. He was stable at 7.5 #15 poor baseline performance and functional status and the patient is a [facility]. Cor status is DNR/DNI #16 history of shingles. #17 acute urinary tract infection secondary to pseudomonas aeruginosa, patient remains on Zosyn. Recommendation: Continue vancomycin, continue Zosyn, continue dialysis, continue treatment of atrial fibrillation as per cardiology, weaned off norepinephrine, continue hemodialysis as per nephrology, patient is presently a selective overflow. Consider discharge planning early next week Time with Patient: Less than 30
[2017-07-21] MEDS ORDERED: HYDROcodone/APAP 7.5-325MG 1 EACH TAB PO PRN (11:40)
[2017-07-21 11:58] LABS: Glucose,Whole Blood 203 mg/dL (75-99)
[2017-07-21] MEDS: LORazepam 2 MG/ML INJ IV PRN (14:32)
[2017-07-21 17:08] LABS: Glucose,Whole Blood 218 mg/dL (75-99)
[2017-07-21 17:08] LABS: Glucose,Whole Blood 222 mg/dL (75-99)
--- NOTE | 2017-07-21 18:45 | P.PN ---
Progress Note - Text Progress Note Date: 07/21/17 DATE OF SERVICE: 07/21/2017 PRESENTING COMPLAINT: Shortness of breath HISTORY OF PRESENT ILLNESS: 81-year-old male resident of [facility] the [place] with multiple medical problems who presented with fever and generalized weakness, admitted to the regular medical floor with a suspected UTI infection and sepsis.Patient developed bright red blood per rectum and his systolic blood pressure dropped into the 70s and 80s. Hemoglobin was 7.0. Transferred to the ICU. Received 2 units of packed red cells. Elevated kidney function requiring placement of a temporary hemodialysis catheter and hemodialysis has been initiated by nephrology. Became increasingly more short of breath requiring BiPAP support. Has received multiple doses of Lasix, continues to be on and off the BiPAP, Cardizem drip initiated to help control heart rate, Lasix drip initiated to help diurese the patient, receives Levophed for blood pressure support. Has MRSA bacteremia concerns for possible endocarditis however patient is unable to lie flat for CHASITY. Has metastatic prostate cancer with involvement of the rectum causing a GI bleed. INTERVAL HISTORY: 07/21/2017: Patient sitting up in his bed, is somewhat restless, afebrile, blood pressure stable, has been off Levophed the last 24 hours breathing is normal, antibiotics continue per for presumptive MRSA. Next hemodialysis is scheduled for Sunday. Informed by nursing patient is requesting a sleeping pill during the day is restless and depressed about being in the hospital. Hemoglobin stable at 7.5,, ate about 20% of his breakfast, continues to drink the shakes, last BM 07/17/2017: 07/20/2017: Sitting up in the bed, receiving dialysis. Received his new dialysis catheter yesterday. Afebrile, blood pressure is stable, Levophed is off continues on antibiotic therapy for presumptive MRSA. Hemoglobin low this morning receive 1 unit of packed red cells. Appetite remains poor, only intake is the shakes that he received with his meals. Megace was added yesterday. Plans to transfer the patient to [address] [place] [address] possibly later today. 07/19/2017: Sitting up in the bed in chair mode, will receive dialysis later today. Temp right groin catheter. Patient does need a new dialysis catheter placed and patient is agreeable arrangement is being made for this to be done today. Remains on Levophed, 4 g, as well as upper lobe pneumonia assumptive MRSA pneumonia. Nutrition services increased supplements due to patient's poor appetite. Nephrology added Vern. 07/18/2017: Lying in bed,status post dialysis catheter placement, previous catheter was clogged attempts made to declog it and were unsuccessful, receiving dialysis. Remains on 3 L nasal cannula, afebrile, remains in sinus rhythm rate in the low 100s,Ramesh catheter needed to be changed and was performed by urology this morning, antibiotic therapy continues for MRSA septicemia, continues to have hypotension requiring the use of pressors, Lasix drip was discontinued, appetite is poor eating very little of his meals but drinking his ensure shakes. 07/17/2017: Patient lying in bed leaning over to the left side of the bed tired appearing complains of pain. Remains on 3 L nasal cannula, afebrile, converted to sinus rhythm yesterday, heart rate remains under control, antibiotic therapy continues for MRSA septicemia hemodialysis scheduled for today as they were unsuccessful yesterday and taking off the full amount. Today's session they had much difficulty with the catheter, TPA placed in the catheter and an attempt will be made to try and dialyze the patient tomorrow if unsuccessful consideration needs to be given to placement of a new dialysis catheter. Levophed continues at 4 g, Lasix drip at 10 mL, appetite is poor is only drinking his ensure shakes. 07/16/2017: Patient lying in bed and is tired appearing, having increasing complaints of pain. Remains on 3 L nasal cannula, afebrile,remains tachycardic, antibiotic therapy continues for MRSA septicemia, hemodialysis later today. Levophed continues at 6 g, insulin drip discontinued, Lasix drip at 10 ml. Appetite poor primarily drinks his ensure shakes. Antibiotics continue in the form of Zosyn and vancomycin. 07/15/2017: Patient lying in bed appears tired today complaining to his left side, remains on 3 L nasal cannula, afebrile, antibiotic therapy continues for MRSA septicemia. Next hemodialysis will be performed on Sunday. Continues to be tachycardic is on and off the Levophed at 5 g an hour for blood pressure support, Lasix drip continues at 10 mg an hour, renal function remains impaired but does have good urine output. Poor appetite, takes primarily his ensure shakes. Antibiotic therapy in the form of Zosyn and vancomycin. Last BM 201707/14/2017: Patient lying in bed, breathing easier. Remains on 3 L nasal cannula, afebrile , antibiotic therapy continues for MRSA septicemia. Hemodialysis done today with 3.5 L removed, patient did become more tachycardic during the procedure. His baseline rate is about 120 beats a minute irregular, blood pressure is in the 110s, Levophed infusion at 2 mics a minute, Lasix drip continues at 10 mg an hour, renal function continues to be impaired. Appetite is poor, does drink his ensure. 07/13/2017: Patient lying in bed receiving hemodialysis, breathing is somewhat easier, heart rate remains elevated. Had an episode of chest discomfort and received Dilaudid which relieved his pain. Pain was located on the right side of the chest and reproducible with palpation. Remains on 5 L nasal cannula did not require any BiPAP support overnight. Hemodialysis was successful removing 3 L of fluid yesterday patient is scheduled for another round of hemodialysis today. Lasix drip continues at 10 mg an hour, remains in atrial fibrillation amiodarone drip at 0.5 mg a minute, norepinephrine was on and off throughout the night. Currently at 4 g. Follow-up blood cultures negative for growth. Remains on daptomycin and ciprofloxacin. REVIEW OF SYSTEMS: Done for constitutional ,cardiovascular, GI, pulmonary with relevant findings as above. CURRENT MEDICATIONS Tylenol, [place] DuoNeb, Cordarone, Casodex, Questran, Aranesp, Colace, Lasix, hydromorphone, NovoLog, Imodium, Ativan, Megace, melatonin, Lopressor, ProAmatine, MiraLAX, Protonix, Paxil, Zosyn, potassium chloride. PHYSICAL EXAM VITAL SIGNS: Temperature 97.8, pulse 55, respiratory rate 24, blood pressure 137/55, oxygen saturation 99% on 3 L. GENERAL APPEARANCE: Lying in bed, tired appearing, more awake HEENT: Pupils equal. Conjunctiva normal. JVD not raised. Mass not palpable. RESPIRATORY: Respiratory effort increased. Diminished bilaterally basilar crackles. CARDIOVASCULAR: First and second sounds irregular. Moderate edema. ABDOMEN: Soft. Liver and spleen not palpable. No tenderness. No mass palpable. PSYCHIATRY: Alert and oriented x3. Mood and affect somewhat anxious and depressed appearing. INTEGUMENT: Right IJ dialysis catheter placemen right chest wall t, right upper arm PICC line . INVESTIGATIONS: LABS: Hemoglobin 7.5, sodium 135, potassium 3.4, BUN 24, creatinine 3.00, Accu- Cheks noted. Blood cultures: 07/02/2017: MRSA Urine culture: 07/02/2017: Pseudomonas aeruginosa Blood culture: 07/04/2017 repeat: Methicillin-resistant staph aureus Blood culture 07/04,28,31: Negative for any growth after 144 hours Sputum culture: 07/14/2017: Destiny glabrata Blood culture: 07/14/2017: Negative for any growth after 144 hours. ASSESSMENT: -Methicillin-resistant Staphylococcus aeruginosa bacteremia with suspicion for underlying endocarditis, slow to respond -Possible staphylococcal lung infection/MRSA pneumonia secondary to chest x-ray findings to the upper lobe apices, slow to respond -Volume overload, multifactorial, slow to respond -Anemia, multifactorial, including that of chronic kidney disease and some blood loss, 6.4 today, received 1 unit of packed cells -Metabolic acidosis from acute kidney injury, improved with dialysis -Acute kidney injury from acute tubular necrosis, including hypertension. -Chronic kidney disease, prostate leak from nephrosclerosis. -Hypotensive shock. possibly cardiogenic Levophed off. -Persistent atrial fibrilation controlled currently sinus rhythm on by mouth amiodarone. -Metastatic prostate cancer with involvement of the bone including the inferior pubic rami, liver on PET scan, and the rectum causing rectal bleeding. The patient is getting palliative radiation treatment and Casodex. -Acute blood loss anemia multifactorial having received 1 units packed red blood cells. -Diabetes mellitus type 2 on insulin drip -Hypertension, history of. -Hyperlipidemia. -Acute congestive heart failure from systolic dysfunction ejection fraction 30- 35% could be arrhythmia reduced, slow to respond -Acute hypoxic respiratory failure status post ventilator support, patient currently on 3 L of oxygen, slow to respond -Acute renal failure, likely acute tubular necrosis, now requiring hemodialysis , slow to respond -Acute urinary tract infection with Pseudomonas, status post antibiotic, resolved -CODE STATUS: No code PLAN: Antibiotic therapy continues Zosyn and vancomycin. Levophed is currently off, IV Lasix continues, Hemodialysis per nephrology. Patient is doing better and stable enough for transfer to [facility]. Paxil added today for depression and pain medications adjusted to his home dose of [place] along with Dilaudid for breakthrough Overall prognosis continues to be quite poor particularly with multiple comorbidities and metastatic prostate cancer. Plan of care discussed with the patient the bedside we will follow closely. PEDIATRIC DIETICIAN statement: Patient was seen and examined by nurse practitioner Beth Hammond and all elements of the case discussed with attending Dr. Ortiz
--- NOTE | 2017-07-21 20:06 | PN ---
PROGRESS NOTE DATE OF SERVICE: 07/21/17 ATTENDING NOTE: Patient seen and examined by me. I discussed with nurse practitioner, Juanmorro. The patient remains in the ICU. Getting hemodialysis. Telemetry remains in sinus rhythm. Eating small amounts. He is on 2 L of oxygen. PHYSICAL EXAMINATION: Afebrile. Pulse 58, respirations 19, blood pressure 114/50, pulse ox 96% on 3 L. LUNGS: Decreased breath sounds. Lethargic, but answering questions. Edema present. ASSESSMENT: Multiple medical problems including renal failure, MRSA bacteremia on antibiotics. Prognosis remains not good. Patient will be moved out of ICU when bed is available. MMODL / IJN: [id number] /
[2017-07-21 20:16] LABS: Glucose,Whole Blood 178 mg/dL (75-99)
[2017-07-21] MEDS: MELATONIN 3 MG TABLET PO PRN (20:51)
[2017-07-22] MEDS: HYDROmorphone 0.5 MG/0.5 ML SYRINGE IVP PRN ×6 (01:08→21:50)
[2017-07-22 04:59] LABS: Glucose,Whole Blood 161 mg/dL (75-99)
[2017-07-22 05:30] LABS: Anisocytosis Slight; HCT 25.5 % (39.0-53.0); HGB 7.6 gm/dL (13.0-17.5); Hypochromasia Marked; MCH 26.3 pg (25.0-35.0); MCV 87.6 fL (80.0-100.0); Mean Platelet Volume 8.2; Platelet Count 152 k/uL (150-450); Poikilocytosis Slight; RBC 2.91 m/uL (4.30-5.90); RDW 18.3 % (11.5-15.5); WBC 9.4 k/uL (3.8-10.6)
[2017-07-22 05:39] LABS: Calcium 7.8 mg/dL (8.4-10.2); Potassium 4.1 mmol/L (3.5-5.1)
[2017-07-22] MEDS: IPRATROPIUM-ALBUTEROL 3 ML NEB INHALATION SCH ×4 (07:29→19:47)
[2017-07-22 07:36] LABS: Glucose,Whole Blood 144 mg/dL (75-99)
[2017-07-22] MEDS: MIDODRINE 5 MG TAB PO SCH ×3 (07:43→17:49)
[2017-07-22] MEDS: INSULIN ASPART 100 UNIT/ML 1 ML 10 ML VIAL SQ SCH ×4 (07:51→21:49)
[2017-07-22] MEDS: BICALUTAMIDE 50 MG TAB PO SCH ×2 (07:54→21:42)
[2017-07-22] MEDS: AMIODARONE 200 MG TAB PO SCH (07:54)
[2017-07-22] MEDS: MEGESTROL 400 MG/10 ML CUP PO SCH (07:55)
[2017-07-22] MEDS: FUROSEMIDE 10 MG/ML 10 ML VIAL IV SCH (07:55)
[2017-07-22] MEDS: METOPROLOL TARTRATE 25 MG TAB PO SCH ×2 (07:55→21:42)
[2017-07-22] MEDS: PARoxetine 20 MG TAB PO SCH (07:56)
[2017-07-22] MEDS: PIPERACILLIN-TAZOBACTAM 3.375 GM in DEXTROSE/WATER 1 50ML.BAG IVPB SCH ×2 (07:56→21:42)
[2017-07-22] MEDS: PANTOPRAZOLE 40 MG TABLET PO SCH (07:56)
[2017-07-22] MEDS: POTASSIUM CHLORIDE ORAL LIQUID 40 MEQ/30 ML CUP PO SCH (07:57)
--- NOTE | 2017-07-22 08:41 | P.PN ---
Subjective Progress Note Date: 07/22/17 Principal diagnosis: This is a 81-year-old male followed up because of acute kidney injury, secondary to prerenal from decreased intake. He is also known with chronic kidney disease with a baseline creatinine of 2.5. He had bacteremia and urinary tract infection and had severe ATN, subsequently has been on dialysis now for a few days. He remains in the ICU. Is not on any pressors. He is waiting for a bed to be available to be moved out of ICU. He continues to complains of fatigue tiredness seems very depressed. He says nothing is improved since starting dialysis. His urine output is minimal in spite of being on Lasix. He was started on antidepressant Paxil yesterday and is somewhat better this morning In the past he was diagnosed with prostatic CA with involvement of rectum and rectal bleeding with loose stools which is frequent and multiple. He has an indwelling Ramesh catheter He is known with coronary artery disease diabetes hypertension Objective - Vital Signs Vital signs: Vital Signs Temp 98.7 F 07/22/17 04:00 Pulse 67 07/22/17 07:41 Resp 23 07/22/17 04:00 BP 105/50 07/22/17 02:00 Pulse Ox 97 07/22/17 04:00 Intake & Output 07/21/17 07/22/17 07/22/17 18:59 06:59 18:59 Intake Total 130 370 Output Total 125 300 Balance 5 70 Weight 105.4 kg 105.2 kg Intake: IV 130 370 Piperacillin-Tazobactam 3 50 50 .375 gm In Dextrose/Water 1 50ml.bag @ 12.5 mls/hr IVPB Q12HR NUZHAT Rx#: [id number] Sodium Chloride 0.9% 1, 80 320 000 ml @ 20 mls/hr IV . Q24H NUZHAT Rx#:[id number] Output: Urine 125 300 Other: Voiding Method Indwelling Catheter Indwelling Catheter On examination is awake alert oriented. Seems less depressed today. HEENT exam no JVP neck is supple no facial asymmetry Lungs are clear to auscultation with occasional coarse crackle at bases good air entry no dullness percussion Heart sounds are unremarkable for any murmur rub gallop normal sinus rhythm. Abdomen soft nontender extremity exam was trace edema Permacath is in the right subclavian area. Neurologically awake alert oriented. Generalized weakness but able to sit up with minimal help. - Labs CBC & Chem 7: 07/22/17 05:20 07/22/17 05:20 Labs: Abnormal Lab Results - Last 24 Hours (Table) 07/21/17 07/21/17 07/21/17 Range/Units 11:56 17:05 17:06 RBC (4.30-5.90) m/uL Hgb (13.0-17.5) gm/dL Hct (39.0-53.0) % MCHC (31.0-37.0) g/dL RDW (11.5-15.5) % BUN (9-20) mg/dL Creatinine (0.66-1.25) mg/dL Glucose (74-99) mg/dL POC Glucose (mg/dL) 203 H 222 H 218 H (75-99) mg/dL Calcium (8.4-10.2) mg/dL 07/21/17 07/22/17 07/22/17 Range/Units 20:14 04:57 05:20 RBC 2.91 L (4.30-5.90) m/uL Hgb 7.6 L (13.0-17.5) gm/dL Hct 25.5 L (39.0-53.0) % MCHC 30.0 L (31.0-37.0) g/dL RDW 18.3 H (11.5-15.5) % BUN (9-20) mg/dL Creatinine (0.66-1.25) mg/dL Glucose (74-99) mg/dL POC Glucose (mg/dL) 178 H 161 H (75-99) mg/dL Calcium (8.4-10.2) mg/dL 07/22/17 07/22/17 Range/Units 05:20 07:34 RBC (4.30-5.90) m/uL Hgb (13.0-17.5) gm/dL Hct (39.0-53.0) % MCHC (31.0-37.0) g/dL RDW (11.5-15.5) % BUN 30 H (9-20) mg/dL Creatinine 3.80 H (0.66-1.25) mg/dL Glucose 154 H (74-99) mg/dL POC Glucose (mg/dL) 144 H (75-99) mg/dL Calcium 7.8 L (8.4-10.2) mg/dL Assessment and Plan Assessment: Impression. 1. Acute kidney injury secondary to volume depletion and low blood pressure. Subsequently in the hospital developed bacteremia with MRSA dated 07/03/2017 as well as a UTI with Pseudomonas. He is ndialysis dependent. Last dialysis was Sunday, day before yesterday 2. Mild hyponatremia sodium from dialysis dependent acute kidney injury and chronic kidney disease. Improved sodium is 138 this morning 4. 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 5. Anemia of chronic illness. Hemoglobin is down to 7.6 Recommendation. 1. Continue antidepressant 2. Physiotherapy. 3. Dialysis is on Sunday 4. Monitor hemoglobin calcium phosphorus. 5. Discontinue vancomycin or reduce the dose, which will allow renal recovery, defer to infectious disease recommendations
--- NOTE | 2017-07-22 08:55 | PN ---
PROGRESS NOTE Mr. Leslie is an 81-year-old male with a history of prostate cancer, who presented with a lower GI bleeding. Today, he had evidence of worsening renal failure, paroxysmal atrial fibrillation. He is more awake and alert. He is eating. He is feeling stronger. He is denying any chest pain. No dizziness. Hemodynamically stable. He continued to be in sinus mechanism. He continues to be on amiodarone 200 mg daily, Casodex, Lasix 80 mg IV q.12 hours and metoprolol tartrate 25 mg twice a day. PHYSICAL EXAMINATION: Blood pressure running in the 130s with a heart rate in the 60s. Lungs a few crackles at bases. Heart regular rate and rhythm S1, S2. No S3 with systolic murmur. ABDOMEN: Soft, nontender. Extremities trace edema. LAB DATA: Potassium 4.1, BUN and creatinine 30 in 3.8 and hemoglobin 7.6. IMPRESSION: 1. Paroxysmal fibrillation remains in normal sinus rhythm, not anticoagulated because of gastrointestinal bleeding. 2. Prostate cancer with metastasis. 3. Cardiomyopathy with questionable vegetations. 4. Renal failure. RECOMMENDATION: From the cardiac standpoint, I will repeat the echocardiogram tomorrow to further evaluate his left ventricular systolic function and his mitral valve. MMODL / IJN: [id number] /
[2017-07-22] MEDS: CHOLESTYRAMINE (WITH SUGAR) 4 GM PACKET PO SCH ×2 (10:24→17:49)
[2017-07-22 11:32] LABS: Glucose,Whole Blood 207 mg/dL (75-99)
--- NOTE | 2017-07-22 11:55 | P.PN ---
Subjective Progress Note Date: 07/22/17 Principal diagnosis: Acute MRSA sepsis and bacteremia. 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 This is a pleasant 81-year-old gentleman who resides at an extended care facility who has a history of coronary artery disease, paroxysmal atrial fibrillation, diabetes mellitus, hyperlipidemia, hypertension, shingles, MRSA infection in the blood and urine. 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 A recent PET scan revealed large hypermetabolic lesion presumed right-sided prostatic carcinoma there is also evidence of extra Chiller extension into the rectum and into the right pelvis causing osseous destruction of medial right MP a pelvic ramus near pubic symphysis. There is metastatic lesion to the liver as well. Patient was readmitted yesterday with fever and generalized weakness. Gentleman admitted to the regular medical floor with suspected urinary tract infection and sepsis. Last evening he developed bright red bleeding from the rectum approximately 50 MLS. He did have a drop in his systolic blood pressure into the 70s and 80s. His hemoglobin was 7.0. He was transferred here to the intensive care unit. He did not require any pressors. Did receive 2 units of packed red blood cells in his current hemoglobin is 8.6. White count 11.7. Creatinine 3.10. AST 158, ALT 106 Blood cultures are revealing presumptive MRSA. His chest x-ray shows mild fluid volume overload with small effusions. He is maintaining O2 saturations in the upper 90s on 2 L/m per nasal cannula. On 07/10/2017 patient is seen in follow-up on medical surgical floor. He developed an acute episode of respiratory distress, severe orthopnea, and acute dyspnea. His lab work today was reviewed, there is no evidence of leukocytosis , WBC is 7.7, hemoglobin is 8.1, his sodium is 133, his carbon dioxide was 18, his BUN is 55, and creatinine is 5.40. Nephrology has discussed initiation of hemodialysis with him today, patient is in agreement. His oxygenation requirements have increased, this morning he was on 2 L per nasal cannula with O2 sat at 97%, through the day and has deteriorated, and patient is not requiring 5-6 L per nasal cannula with O2 sat at 92-93%. Lung sounds are positive for coarse rales throughout the lung doan bilaterally. He remains afebrile. No other episodes of rectal bleeding was observed. Patient was actually due to start radiation therapy for his prostate cancer today, however in view of his worsening respiratory status, was put on hold. Stat chest x-ray was obtained, and shows worsening decompensated congestive heart failure and confluent pulmonary edema. 80 mg of Lasix IV was given, with no response, patient only made 10 mL of urine. Patient has been progressively more oliguric over the last few days. Has been complaining of worsening appetite and weakness. Dr. Escobedo was consulted for placement of hemodialysis catheter, patient is unable to lay down flat, patient may have to go on the BiPAP support and hemodialysis catheter may have to be placed in the femoral area. We will transfer the patient to the intensive care, and request Dr. Escobedo to place a hemodialysis catheter STEPHEN and initiate hemodialysis as soon as possible. On 07/11/2017 patient remains in the intensive care BiPAP support with pressures 12.5 and FiO2 40%. He had hemodialysis last night would removal of 3 L of fluid, he is scheduled for hemodialysis again today. Is moderately short of breath, lung sounds are positive for coarse rhonchi, rales. And to produce some urine, 10-20 mL per hour. Chest x-ray from 07/11/2017 has been reviewed and shows airspace disease consistent with CHF and pulmonary edema. Support was reviewed, WBCs are up to 14, hemoglobin is 9, serum sodium is 134, serum potassium is 4.1, B1 is 46, creatinine is 5.2, with CO2 of 17. Bilateral lower extremities positive for 1+ pitting edema. Patient was given 80 mg of Lasix with modest response, about 125 mL in the first hour after administration. Continues on ciprofloxacin for Pseudomonas in the urine, daptomycin for the positive blood cultures with MRSA. On 07/12/2017 patient is seen again in the intensive care. Wore the BiPAP mask intermittently last night, this morning he is on 6 L of oxygen, per high flow nasal cannula. Denies worsening dyspnea at rest, still using accessory abdominal muscles. Lung sounds are much improved from yesterday's exam, positive for a few scattered expiratory wheezes over posterior lower basis, but no rhonchi no rales auscultated. Last night patient went into atrial fibrillation with rapid ventricular rate with a rate of 1:30 to 140 BPM. Patient was started on Cardizem drip at 10 mg/hour. He had 2 L removed during hemodialysis yesterday evening, her symptoms. He was started on Lasix drip at 10 mg/hr per nephrology. His urine output has improved, averaging 60-100 mL per hour. Overall his net fluid balance is -2800 mL in the last 24 hours. He is currently having another hemodialysis treatment, with a target removal of 3 L today. Patient is hypotensive with systolic in the 70s and 80s, still tachycardic with a rate of 120-120 BPM. May have to restart vasopressor support with levophed. Chest x-ray from December 30 was reviewed and shows diffuse wheezes bilaterally, pulmonary edema versus diffuse pneumonia. Cultures are negative, patient has MRSA bacteremia, concern for possible endocarditis. Currently, covered with daptomycin. Cardiology is unable to proceed with CHASITY the view of patient's respiratory status. Continue oral Cipro for pseudomonal unit tract infection. Overall the patient states his breathing is easier today. The patient is seen again today 07/13/2017 in follow-up in the intensive care unit. He is awake and alert in no acute distress. He did have an episode of chest discomfort. EKG revealed no significant changes. He was given Dilaudid which his pain was relieved. The pain was somewhat atypical it was on the right side and reproducible with palpation. He is down to 5 L/m per nasal cannula to maintain O2 saturations in the 90s. He did not require BiPAP support last night. He had over 3 L removed yesterday via dialysis and another 4 L this morning. His chest x-ray continues to show bilateral infiltrates more so on the right upper lung. He is continued on a Lasix drip at 10 mg per hour. He remains in atrial fibrillation. He remains on amiodarone drip at 0.5 mg/ m. He was off the norepinephrine throughout the night. It was resumed early this morning during dialysis at 6 mcg/m. Currently down to 4 g. Follow-up blood cultures reveal no growth. Initial blood cultures were positive for MRSA. Urine was positive for Pseudomonas. He remains on daptomycin and Ciprofloxacillin. White count 20.0. Hemoglobin 7.6. Creatinine 3.90. His appetite is poor. He is drinking Ensure. On 07/14/2017 and seeing this patient for a follow-up. The patient is awake and alert. Currently is on 3 L of oxygen by nasal cannula. Chest x-ray still showing upper lobe consolidation bilaterally. The patient has some limited leukocytosis. The patient has no fever. The patient remains on daptomycin regarding previous MRSA septicemia. The patient underwent hemodialysis this morning with ultrafiltration. A total of 3.5 L of fluid was removed on today's ultrafiltration. During the time, the patient became more tachycardic with underlying atrial fibrillation rhythm. His current rate is around 120 irregular. His blood pressure is in the 110s and the patient has a map of above 65. He is currently on norepinephrine infusion at 2 mics. He is producing adequate amount of urine output in the order of more than 50 mL an hour and the patient is on Lasix drip at 10 mg an hour. The renal function is still impaired with a creatinine of 3.4. The patient is tolerating a sure. He is having loose bowel movements. No altered mentation at this point. No other significant events overnight. On 07/15/2017, them seeing this patient for a follow-up. Awake and alert. Chest x-ray still showing extensive consolidation of the upper lobes bilaterally. There is a concern of staphylococcal pneumonia and for that reason the daptomycin was discontinued and the patient was switched to IV vancomycin. The first dose will be given to him today. The patient remains pressor dependent at 5 mics of levo fed. The patient is on amiodarone orally and the patient remains in atrial fibrillation and at times is having rapid ventricular response. The highest heart rate has been between 120 and 1:30. The patient is producing adequate amount of urine output. He is on Lasix drip at 10 mg an hour. Nephrology is on the case. No recommendations for hemodialysis today. Repeat blood cultures of been sent. The patient is awake and alert and communicating. He requested a DNR/DNI CODE STATUS. He is having adequate bowel moments. He has loose soft liquidy BMs. His oral intake is minimal and is mainly relying on a sure shakes. No other significant events over the past 24 hours. He is quite weak and debilitated at this point. Reevaluated today on 07/16/2017, patient is feeling a bit better, pain seems to be a bit better controlled with Dilaudid, remains on antibiotics in the form of vancomycin and Zosyn, remains on 5-7 g of levo fed, patient looks chronically ill weak and debilitated. Remains also on Lasix drip. Labs were reviewed WBC count is 17.6, improving. Hemoglobin is 8, electrolytes are normal BUN is 52 creatinine is 4.0. Patient is still receiving daily dialysis mostly for fluid overload, remains nonoliguric and he remains on Lasix drip. Reevaluated today on 07/17/2017, patient supposedly had some deterioration in mental status last night, but does far as I'm concerned, his mental status has been the same all along over the last 2 days. At any rate code stroke was called, and patient underwent CT scanning of the brain which came back nondiagnostic. Patient seems to have what looks like to metabolic encephalopathy related to his multiple metabolic problems as listed below. Today the patient is about the same, he is lethargic, arousable, follows simple instructions, oriented to place and time. WBC count is 21.6 hemoglobin is 7.9 electrolytes were normal BUN is 54 creatinine 4.10, patient will likely be dialyzed again today. Chest x-ray is suggestive of fluid overload and upper lobe pneumonia bilaterally. Patient was reevaluated today on 07/18/2017, today he seems better than he has been over the last 1 week. Seems to be more awake, more alert, follows all simple instructions, in no form of respiratory distress. Patient was seen by nephrology, and they are recommending a permanent dialysis catheter to be placed however patient may decline having such procedure, I believe a family meeting would have to be organized and final decision would have to be made whether to proceed with permanent hemodialysis are not considering the patient' s all other medical issues and morbidities. Family and the patient may consider comfort care measures, and if not I believe we should proceed with permanent dialysis catheter placement. Chest x-ray today is showing some improvement in his bilateral upper lobe disease, CBC was reviewed WBC count is 14.7 hemoglobin is 7.5. Basic metabolic profile is normal BUN is 48 creatinine is 4.0, patient is scheduled to undergo dialysis again today. Patient was reevaluated today on 07/19/2017, seems to be doing much better, patient is agreeable to have a permanent dialysis catheter placed, and I believe that will be arranged for to be done today. In the meantime remains on multiple meds, remains on a very small tiny dose of norepinephrine to maintain adequate blood pressure. His dose is 4 g. CBC showed a hemoglobin of 7.2 electrolytes are normal BUN is 45 creatinine 4.20. Patient remains on antibiotics for his upper lobe pneumonia presumptive MRSA pneumonia. Reevaluated today on 07/20/2017, patient had a permanent dialysis catheter placed yesterday. Continues to have somedisease in the upper lobes as noted on the chest x-ray,but clinically the patient is relatively asymptomatic. Hemoglobin today is 6.4, patient is receiving a unit of packed RBCs today. His blood loss is multifactorial. Most likely related to his underlying renal failure, blood draws, may or may have some ongoing minimal GI bleeding.clinically however the patient is doing great, and he has been gradually getting better on a daily basis. Today he is off norepinephrine, and I plan to transfer the patient to a monitor bed on selective. Reevaluated today on 07/21/2017, remains off norepinephrine, hemodynamically stable, patient seems a bit depressed, hence Paxil was started. Hemoglobin is 7.5 WBC count is 8.3 electrolytes are normal except for potassium of 3.4 BUN is 24 creatinine is 3.0. No chest x-ray was done today. Patient denies any shortness of breath, he feels generally weak. Reevaluated today on 07/22/2017, patient is about the same, he is an overflow patient from [facility], presently asymptomatic, remains on the same medications for his pneumonia presumptively MRSA pneumonia, remains on dialysis,all labs were reviewed including a hemoglobin of 7.6 which is relatively stable, basic metabolic profile was also noted. Patient is waiting to be transferred to a monitor bed on selective today. Objective - Vital Signs Vital signs: Vital Signs Temp 98.7 F 07/22/17 04:00 Pulse 62 07/22/17 11:12 Resp 17 07/22/17 08:00 BP 100/62 07/22/17 08:00 Pulse Ox 96 07/22/17 08:00 Intake & Output 07/21/17 07/22/17 07/22/17 18:59 06:59 18:59 Intake Total 130 370 Output Total 125 300 1 Balance 5 70 -1 Weight 105.4 kg 105.2 kg Intake: IV 130 370 Piperacillin-Tazobactam 3 50 50 .375 gm In Dextrose/Water 1 50ml.bag @ 12.5 mls/hr IVPB Q12HR [facility] Rx#: [id number] Sodium Chloride 0.9% 1, 80 320 000 ml @ 20 mls/hr IV . Q24H [facility] Rx#:[id number] Output: Urine 125 300 Stool 1 Other: Voiding Method Indwelling Catheter Indwelling Catheter Indwelling Catheter - Exam GENERAL EXAM: Awake, alert, in no distress HEAD: Normocephalic. EYES: Normal reaction of pupils, equal size. NOSE: Clear with pink turbinates. THROAT: No erythema or exudates. NECK: No masses, no JVD. CHEST: No chest wall deformity. LUNGS: Equal air entry with crackles posterior bases. CVS: S1 and S2 normal with no audible murmur, irregular rhythm. ABDOMEN: No hepatosplenomegaly, normal bowel sounds, no guarding or rigidity. SPINE: No scoliosis or deformity SKIN: No rashes CENTRAL NERVOUS SYSTEM: Alert oriented and definitely more and more awake. EXTREMITIES: There is bilateral peripheral edema. No clubbing, no cyanosis. Peripheral pulses are intact. - Labs CBC & Chem 7: 07/22/17 05:20 07/22/17 05:20 Labs: Abnormal Lab Results - Last 24 Hours (Table) 07/21/17 07/21/17 07/21/17 Range/Units 11:56 17:05 17:06 RBC (4.30-5.90) m/uL Hgb (13.0-17.5) gm/dL Hct (39.0-53.0) % MCHC (31.0-37.0) g/dL RDW (11.5-15.5) % BUN (9-20) mg/dL Creatinine (0.66-1.25) mg/dL Glucose (74-99) mg/dL POC Glucose (mg/dL) 203 H 222 H 218 H (75-99) mg/dL Calcium (8.4-10.2) mg/dL 07/21/17 07/22/17 07/22/17 Range/Units 20:14 04:57 05:20 RBC 2.91 L (4.30-5.90) m/uL Hgb 7.6 L (13.0-17.5) gm/dL Hct 25.5 L (39.0-53.0) % MCHC 30.0 L (31.0-37.0) g/dL RDW 18.3 H (11.5-15.5) % BUN (9-20) mg/dL Creatinine (0.66-1.25) mg/dL Glucose (74-99) mg/dL POC Glucose (mg/dL) 178 H 161 H (75-99) mg/dL Calcium (8.4-10.2) mg/dL 07/22/17 07/22/17 07/22/17 Range/Units 05:20 07:34 11:31 RBC (4.30-5.90) m/uL Hgb (13.0-17.5) gm/dL Hct (39.0-53.0) % MCHC (31.0-37.0) g/dL RDW (11.5-15.5) % BUN 30 H (9-20) mg/dL Creatinine 3.80 H (0.66-1.25) mg/dL Glucose 154 H (74-99) mg/dL POC Glucose (mg/dL) 144 H 207 H (75-99) mg/dL Calcium 7.8 L (8.4-10.2) mg/dL Assessment and Plan Assessment: #1 metastatic prostate cancer with skeletal and liver involvement. The tumor itself is extended locally to involve the rectal wall and causing mass effect on the rectum. The patient may be a a candidate for systemic chemotherapy. Consideration was given for palliative radiation therapy however this has not been done as the patient became quite ill and he went into acute hypoxic respiratory failure. Note that the PET scan of the whole body showed a Large hypermetabolic lesion of right-sided prostatic carcinoma with evidence of extra capsular extension into the rectum and into the right pelvis causing osseous distraction of medial right inferior pelvic ramus near pubic symphysis. Metastatic lesion to the liver. #2 Acute rectal bleeding secondary to invading prostate mass. Status post 2 units of packed red blood cell infusions. Current hemoglobin 7.6 #3 Sepsis secondary to MRSA bacteremia. There is a concern for infective endocarditis knowing that the possible mitral valve vegetation. Estimated ejection fraction was around 30%. #4 Acute on chronic renal failure, requiring recent daily hemodialysis. Current creatinine 3.8 #5 acute hypoxic history failure with extensive upper lobe consolidation. Patient improved with hemodialysis ultrafiltration. Nevertheless he continues to have leukocytosis and there is extensive consolidation of the upper lobes bilaterally. He is on IV Zosyn. Concern for MRSA pneumonia is there and based on that the patient will be switched to vancomycin. #6 chronic atrial fibrillation with rapid response currently on an amiodarone orally 400 mg 3 times a day. The patient on a candidate for anticoagulation. #7 Coronary artery disease. #8 Diabetes mellitus. Recurrent on insulin drip for blood sugar control at the rate of 1.5 units an hour #9 Hyperlipidemia. #10 Hypertension. #11 congestion heart failure with ejection fraction of 30% and concern for mitral valve vegetation/endocarditis #12 hypotension resolved, patient is off norepinephrine. #13 extensive lower extremities edema and signs of fluid overload. The patient is improving in terms of the fluid balance the patient is currently on lisinopril 10 mg an hour. Daily dialysis and ultrafiltration is also being done #14 anemia, multifactorial. He was stable at 7.6 #15 poor baseline performance and functional status and the patient is a [facility] resident. Cor status is DNR/DNI #16 history of shingles. #17 acute urinary tract infection secondary to pseudomonas aeruginosa, patient remains on Zosyn. Recommendation: Continue vancomycin, continue Zosyn, continue dialysis, continue treatment of atrial fibrillation as per cardiology, weaned off norepinephrine, continue hemodialysis as per nephrology, patient is presently a selective overflow. Consider discharge planning early next week Time with Patient: Less than 30
--- NOTE | 2017-07-22 16:18 | P.PN ---
Progress Note - Text Progress Note Date: 07/22/17 DATE OF SERVICE: 07/22/2017 PRESENTING COMPLAINT: Shortness of breath HISTORY OF PRESENT ILLNESS: 81-year-old male resident of [facility] on the [place] with multiple medical problems who presented with fever and generalized weakness, admitted to the regular medical floor with a suspected UTI infection and sepsis.Patient developed bright red blood per rectum and his systolic blood pressure dropped into the 70s and 80s. Hemoglobin was 7.0. Transferred to the ICU. Received 2 units of packed red cells. Elevated kidney function requiring placement of a temporary hemodialysis catheter and hemodialysis has been initiated by nephrology. Became increasingly more short of breath requiring BiPAP support. Has received multiple doses of Lasix, continues to be on and off the BiPAP, Cardizem drip initiated to help control heart rate, Lasix drip initiated to help diurese the patient, receives Levophed for blood pressure support. Has MRSA bacteremia concerns for possible endocarditis however patient is unable to lie flat for CHASITY. Has metastatic prostate cancer with involvement of the rectum causing a GI bleed. INTERVAL HISTORY: 07/22/2017: Patient lying in bed appears comfortable, afebrile, blood pressure stable. Continues to be off Levophed, breathing is normal, antibiotics continue per for presumptive MRSA. Next hemodialysis scheduled for Sunday. Eating better ate about 20% of his breakfast, continues to drink protein shakes included with breakfast. Hemoglobin remained stable at 7.6. BUN and creatinine remain elevated, nephrology was discontinued Lasix for now. Mood is somewhat improved seemingly less frustrated. 07/21/2017: Patient sitting up in his bed, is somewhat restless, afebrile, blood pressure stable, has been off Levophed the last 24 hours breathing is normal, antibiotics continue per for presumptive MRSA. Next hemodialysis is scheduled for Sunday. Informed by nursing patient is requesting a sleeping pill during the day is restless and depressed about being in the hospital. Hemoglobin stable at 7.5,, ate about 20% of his breakfast, continues to drink the shakes, last BM 07/17/2017: 07/20/2017: Sitting up in the bed, receiving dialysis. Received his new dialysis catheter yesterday. Afebrile, blood pressure is stable, Levophed is off continues on antibiotic therapy for presumptive MRSA. Hemoglobin low this morning receive 1 unit of packed red cells. Appetite remains poor, only intake is the shakes that he received with his meals. Megace was added yesterday. Plans to transfer the patient to [address] [place] [address] possibly later today. 07/19/2017: Sitting up in the bed in chair mode, will receive dialysis later today. Temp right groin catheter. Patient does need a new dialysis catheter placed and patient is agreeable arrangement is being made for this to be done today. Remains on Levophed, 4 g, as well as upper lobe pneumonia assumptive MRSA pneumonia. Nutrition services increased supplements due to patient's poor appetite. Nephrology added Megace. 07/18/2017: Lying in bed,status post dialysis catheter placement, previous catheter was clogged attempts made to declog it and were unsuccessful, receiving dialysis. Remains on 3 L nasal cannula, afebrile, remains in sinus rhythm rate in the low 100s,Ramesh catheter needed to be changed and was performed by urology this morning, antibiotic therapy continues for MRSA septicemia, continues to have hypotension requiring the use of pressors, Lasix drip was discontinued, appetite is poor eating very little of his meals but drinking his ensure shakes. 07/17/2017: Patient lying in bed leaning over to the left side of the bed tired appearing complains of pain. Remains on 3 L nasal cannula, afebrile, converted to sinus rhythm yesterday, heart rate remains under control, antibiotic therapy continues for MRSA septicemia hemodialysis scheduled for today as they were unsuccessful yesterday and taking off the full amount. Today's session they had much difficulty with the catheter, TPA placed in the catheter and an attempt will be made to try and dialyze the patient tomorrow if unsuccessful consideration needs to be given to placement of a new dialysis catheter. Levophed continues at 4 g, Lasix drip at 10 mL, appetite is poor is only drinking his ensure shakes. 07/16/2017: Patient lying in bed and is tired appearing, having increasing complaints of pain. Remains on 3 L nasal cannula, afebrile,remains tachycardic, antibiotic therapy continues for MRSA septicemia, hemodialysis later today. Levophed continues at 6 g, insulin drip discontinued, Lasix drip at 10 ml. Appetite poor primarily drinks his ensure shakes. Antibiotics continue in the form of Zosyn and vancomycin. 07/15/2017: Patient lying in bed appears tired today complaining to his left side, remains on 3 L nasal cannula, afebrile, antibiotic therapy continues for MRSA septicemia. Next hemodialysis will be performed on Sunday. Continues to be tachycardic is on and off the Levophed at 5 g an hour for blood pressure support, Lasix drip continues at 10 mg an hour, renal function remains impaired but does have good urine output. Poor appetite, takes primarily his ensure shakes. Antibiotic therapy in the form of Zosyn and vancomycin. Last BM 201707/14/2017: Patient lying in bed, breathing easier. Remains on 3 L nasal cannula, afebrile , antibiotic therapy continues for MRSA septicemia. Hemodialysis done today with 3.5 L removed, patient did become more tachycardic during the procedure. His baseline rate is about 120 beats a minute irregular, blood pressure is in the 110s, Levophed infusion at 2 mics a minute, Lasix drip continues at 10 mg an hour, renal function continues to be impaired. Appetite is poor, does drink his ensure. 07/13/2017: Patient lying in bed receiving hemodialysis, breathing is somewhat easier, heart rate remains elevated. Had an episode of chest discomfort and received Dilaudid which relieved his pain. Pain was located on the right side of the chest and reproducible with palpation. Remains on 5 L nasal cannula did not require any BiPAP support overnight. Hemodialysis was successful removing 3 L of fluid yesterday patient is scheduled for another round of hemodialysis today. Lasix drip continues at 10 mg an hour, remains in atrial fibrillation amiodarone drip at 0.5 mg a minute, norepinephrine was on and off throughout the night. Currently at 4 g. Follow-up blood cultures negative for growth. Remains on daptomycin and ciprofloxacin. REVIEW OF SYSTEMS: Done for constitutional ,cardiovascular, GI, pulmonary with relevant findings as above. CURRENT MEDICATIONS Tylenol, [place] DuoNeb, Cordarone, Casodex, Questran, Aranesp, Colace, hydromorphone, NovoLog, Imodium, Ativan, Megace, melatonin, Lopressor, ProAmatine, MiraLAX, Protonix, Paxil, Zosyn, potassium chloride. PHYSICAL EXAM VITAL SIGNS: Temp to 98.7, pulse 58, respiratory rate 23, blood pressure 106/52. oxygen saturation 97% on 3 L. GENERAL APPEARANCE: Lying in bed, tired appearing, but more awake HEENT: Pupils equal. Conjunctiva normal. JVD not raised. Mass not palpable. RESPIRATORY: Respiratory effort increased. Diminished bilaterally basilar crackles. CARDIOVASCULAR: First and second sounds normal. Mild edema. ABDOMEN: Soft. Liver and spleen not palpable. No tenderness. No mass palpable. PSYCHIATRY: Alert and oriented x3. Mood and affect somewhat anxious and depressed appearing. INTEGUMENT: Right IJ dialysis catheter placemen right chest wall t, right upper arm PICC line . INVESTIGATIONS: LABS: Hemoglobin 7.6, BUN 30, creatinine 3.80, Accu-Cheks noted. Blood cultures: 07/02/2017: MRSA Urine culture: 07/02/2017: Pseudomonas aeruginosa Blood culture: 07/04/2017 repeat: Methicillin-resistant staph aureus Blood culture 07/04,,31: Negative for any growth after 144 hours Sputum culture: 07/14/2017: Destiny glabrata Blood culture: 07/14/2017: Negative for any growth after 144 hours. ASSESSMENT: -Methicillin-resistant Staphylococcus aeruginosa bacteremia with suspicion for underlying endocarditis, slow to respond -Possible staphylococcal lung infection/MRSA pneumonia secondary to chest x-ray findings to the upper lobe apices, slow to respond -Volume overload, multifactorial, slow to respond -Anemia, multifactorial, including that of chronic kidney disease and some blood loss, 6.4 today, received 1 unit of packed cells -Metabolic acidosis from acute kidney injury, improved with dialysis -Acute kidney injury from acute tubular necrosis, including hypertension. -Chronic kidney disease, prostate leak from nephrosclerosis. -Hypotensive shock. possibly cardiogenic Levophed off. -Persistent atrial fibrilation controlled currently sinus rhythm on by mouth amiodarone. -Metastatic prostate cancer with involvement of the bone including the inferior pubic rami, liver on PET scan, and the rectum causing rectal bleeding. The patient is getting palliative radiation treatment and Casodex. -Acute blood loss anemia multifactorial having received 1 units packed red blood cells. -Diabetes mellitus type 2 on insulin drip -Hypertension, history of. -Hyperlipidemia. -Acute congestive heart failure from systolic dysfunction ejection fraction 30- 35% could be arrhythmia reduced, slow to respond -Acute hypoxic respiratory failure status post ventilator support, patient currently on 3 L of oxygen, slow to respond -Acute renal failure, likely acute tubular necrosis, now requiring hemodialysis , slow to respond -Acute urinary tract infection with Pseudomonas, status post antibiotic, resolved -CODE STATUS: No code PLAN: Antibiotic therapy continues Zosyn and vancomycin. Levophed remains off, IV Lasix discontinued due to increasing BUN and creatinine per nephrology, Hemodialysis on Sunday. Patient is doing better and stable will be transferred today to [facility]. Paxil continues for depression and pain medications adjusted and working well. Overall prognosis continues to be quite poor particularly with multiple comorbidities and metastatic prostate cancer. Plan of care discussed with the patient the bedside we will follow closely. STONE CUTTER statement: Patient was seen and examined by nurse practitioner Beth Hammond and all elements of the case discussed with attending Dr. Ortiz
[2017-07-22 17:16] LABS: Glucose,Whole Blood 210 mg/dL (75-99)
--- NOTE | 2017-07-22 20:33 | PN ---
PROGRESS NOTE DATE OF SERVICE: 07/22/17 ATTENDING NOTE: Patient seen and examined by me. I discussed with nurse practitioner, Ms. Hammond. The patient moved out of the ICU to the [facility] care. Tired, still eating small amounts, answering simple questions. PHYSICAL EXAMINATION: Afebrile, pulse 61, respirations 21, blood pressure 94/44. LUNGS: Decreased breath sounds. Edema present. BUN 30, creatinine 3.8, hemoglobin 7.6. 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 Prognosis not good. Continue current treatment plan. Follow. MMODL / IJN: [id number] /
[2017-07-22 21:11] LABS: Glucose,Whole Blood 234 mg/dL (75-99)
[2017-07-22] MEDS: MELATONIN 3 MG TABLET PO PRN (21:43)
[2017-07-23] MEDS: HYDROmorphone 0.5 MG/0.5 ML SYRINGE IVP PRN ×6 (00:31→22:46)
[2017-07-23 01:40] LABS: Glucose,Whole Blood 135 mg/dL (75-99)
--- NOTE | 2017-07-23 05:46 | PN ---
PROGRESS NOTE DATE OF SERVICE: 07/22/2017 REASON FOR FOLLOWUP: MRSA bacteremia likely endocarditis and pneumonia. INTERVAL HISTORY: The patient is afebrile. He is breathing more comfortably. Denies having any chest pain. Occasional cough. No abdominal pain, no diarrhea. PHYSICAL EXAMINATION: On examination, blood pressure 135/65 with a pulse of 74, temperature of 97. He is 96% on 3 L nasal cannula. General description is an elderly male lying in bed in no distress. RESPIRATORY SYSTEM: Unlabored breathing, decreased breath sounds in the bases. HEART: S1, S2. Regular rate and rhythm. ABDOMEN: Soft, no tenderness. LABS: Hemoglobin 7.6, white count 9.4 with BUN of 30, creatinine 3.80. DIAGNOSTIC IMPRESSION AND PLAN: Patient with methicillin-resistant Staphylococcus aureus bacteremia likely endocarditis. Did have a component of pneumonia. Currently covered with Vancomycin and Zosyn. His white count has normalized. We will discuss with Cardiology for timing of the CHASITY as his respiratory symptoms have been improving. Continue with supportive care. MMODL / IJN: [id number] /
[2017-07-23 06:06] LABS: Glucose,Whole Blood 152 mg/dL (75-99)
[2017-07-23] MEDS: INSULIN ASPART 100 UNIT/ML 1 ML 10 ML VIAL SQ SCH ×4 (06:52→21:19)
[2017-07-23] MEDS: MIDODRINE 5 MG TAB PO SCH ×3 (06:52→17:24)
[2017-07-23 06:58] LABS: Anisocytosis Slight; Basophils % (A) 0 %; Eosinophils # (A) 1.1 k/uL (0-0.7); Eosinophils % (A) 13 %; HCT 26.8 % (39.0-53.0); HGB 7.7 gm/dL (13.0-17.5); Hypochromasia Marked; Lymphocytes # (A) 1.1 k/uL (1.0-4.8); Lymphocytes % (A) 13 %; MCH 26.1 pg (25.0-35.0); MCHC 28.9 g/dL (31.0-37.0); MCV 90.3 fL (80.0-100.0); Mean Platelet Volume 7.5; Monocytes # (A) 0.3 k/uL (0-1.0); Monocytes % (A) 4 %; Neutrophils # (A) 5.8 k/uL (1.3-7.7); Neutrophils % (A) 69 %; Platelet Count 190 k/uL (150-450); Poikilocytosis Slight; RBC 2.97 m/uL (4.30-5.90); RDW 19.1 % (11.5-15.5); WBC 8.4 k/uL (3.8-10.6)
[2017-07-23 07:43] LABS: Calcium 8.1 mg/dL (8.4-10.2); Potassium 4.1 mmol/L (3.5-5.1)
[2017-07-23] MEDS: PARoxetine 20 MG TAB PO SCH (07:53)
[2017-07-23] MEDS: MEGESTROL 400 MG/10 ML CUP PO SCH (07:53)
[2017-07-23] MEDS: METOPROLOL TARTRATE 25 MG TAB PO SCH ×2 (07:54→22:55)
[2017-07-23] MEDS: POTASSIUM CHLORIDE ORAL LIQUID 40 MEQ/30 ML CUP PO SCH (07:54)
[2017-07-23] MEDS: PANTOPRAZOLE 40 MG TABLET PO SCH (07:54)
[2017-07-23] MEDS: AMIODARONE 200 MG TAB PO SCH (07:54)
[2017-07-23] MEDS: IPRATROPIUM-ALBUTEROL 3 ML NEB INHALATION SCH ×4 (08:06→18:52)
[2017-07-23] MEDS: BICALUTAMIDE 50 MG TAB PO SCH ×2 (08:09→22:55)
--- NOTE | 2017-07-23 08:37 | XR ---
EXAMINATION TYPE: XR chest 1V portable DATE OF EXAM: 07/23/2017 COMPARISON: 07/20/2017 HISTORY: Pneumonia TECHNIQUE: Single frontal view of the chest is obtained. FINDINGS: Dialysis catheter and PICC line seen with bilateral areas of consolidation and pleural eff usion stable. Cardiomegaly and atherosclerotic change aorta unchanged. IMPRESSION: 1. Bilateral areas of infiltrate are stable underlying CHF not excluded.
[2017-07-23] MEDS: MIDODRINE 5 MG TAB PO PRN (10:08)
[2017-07-23] MEDS: CHOLESTYRAMINE (WITH SUGAR) 4 GM PACKET PO SCH ×2 (10:09→17:24)
[2017-07-23] MEDS: LORazepam 2 MG/ML INJ IV PRN ×3 (10:13→22:04)
[2017-07-23] MEDS: PIPERACILLIN-TAZOBACTAM 3.375 GM in DEXTROSE/WATER 1 50ML.BAG IVPB SCH ×2 (10:38→21:19)
[2017-07-23] MEDS ORDERED: VANCOMYCIN 1,750 MG in SODIUM CHLORIDE 0.9% 250 ML IVPB ONE (11:00)
--- NOTE | 2017-07-23 11:55 | ECHOF ---
Referral Reason:cm MEASUREMENTS -------- HEIGHT: 162.6 cm WEIGHT: 106.1 kg BP: RVIDd: 3.3 cm (< 3.3) IVSd: 1.4 cm (0.6 - 1.1) LVIDd: 4.6 cm (3.9 - 5.3) LVPWd: 1.2 cm (0.6 - 1.1) IVSs: 1.5 cm LVIDs: 3.2 cm LVPWs: 1.5 cm LA Diam: 4.1 cm (2.7 - 3.8) Ao Diam: 3.9 cm (2.0 - 3.7) AV Cusp: 1.5 cm (1.5 - 2.6) LA Diam: 3.9 cm (2.7 - 3.8) MV EXCURSION: 12.538 mm (> 18.000) MV EF SLOPE: 27 mm/s (70 - 150) EPSS: 1.0 cm MV E Steven: 0.85 m/s MV DecT: 307 ms MV A Steven: 0.74 m/s MV E/A Ratio: 1.16 RAP: 5.00 mmHg RVSP: 19.33 mmHg FINDINGS -------- Sinus rhythm. This was a technically adequate study. The left ventricular size is normal. There is moderate concentric left ventricular hypertrophy. O verall left ventricular systolic function is mild-moderately impaired with, an EF between 40 - 45 %. Anterseptal Hypokinesis Distal Septal Hypokinesis. The right ventricle is normal in size. The left atrium is mildly dilated. The right atrial size is normal. There is mild aortic valve sclerosis. There is no evidence of aortic regurgitation. Moderate mitral annular calcification present. Mild mitral regurgitation is present. Mild tricuspid regurgitation present. There is no evidence of pulmonary hypertension. The right v entricular systolic pressure, as measured by Doppler, is 19.33mmHg. Trace/mild (physiologic) pulmonic regurgitation. The aortic root size is normal. There is no pericardial effusion. CONCLUSIONS -------- 1. The left ventricular size is normal. 2. There is moderate concentric left ventricular hypertrophy. 3. Overall left ventricular systolic function is mild-moderately impaired with, an EF between 40 - 45 %. 4. Anterseptal Hypokinesis 5. Distal Septal Hypokinesis. 6. There is mild aortic valve sclerosis. 7. Moderate mitral annular calcification present. 8. Mild mitral regurgitation is present. 9. Mild tricuspid regurgitation present. 10. There is no evidence of pulmonary hypertension. 11. The right ventricular systolic pressure, as measured by Doppler, is 19.33mmHg. 12. Trace/mild (physiologic) pulmonic regurgitation. 13. The aortic root size is normal. 14. There is no pericardial effusion. SOAKING TANK WORKER: Ofelia Rod RDCS
[2017-07-23 11:58] LABS: Glucose,Whole Blood 119 mg/dL (75-99)
--- NOTE | 2017-07-23 12:59 | PN ---
PROGRESS NOTE Mr. Leslie is quite sleepy this morning. He received sedation earlier with Ativan because of agitation. He is receiving hemodialysis. He denies any symptoms of chest pain. Hemodynamically, he has been stable. He continues to be in sinus mechanism. There is no evidence of tachy or bradycardia. His blood pressure has been stable and he is not on vasopressors. He is on amiodarone 200 mg daily, metoprolol 25 mg twice a day. Midodrine, vancomycin. PHYSICAL EXAMINATION: Blood pressure running in the 100s with the heart rate in the 60. LUNGS: Clear. HEART: Regular rate and rhythm. S1, S2. No S3 with systolic murmur. ABDOMEN: Soft, nontender, obese. EXTREMITIES: Trace edema. LAB DATA: Lab data revealed a hemoglobin 7.7, BUN and creatinine 36 and 4.25. Repeat echocardiogram performed today revealed an ejection fraction of 40% to 45% and there is no evidence to suggest endocarditis with mild mitral and tricuspid regurgitation. IMPRESSION: 1. Paroxysmal atrial fibrillation. Patient remains in sinus mechanism. 2. Renal failure. 3. Prostate cancer, on dialysis. 4. Pneumonia. 5. Gastrointestinal bleeding. 6. Cardiomyopathy, improved. RECOMMENDATION: At this time, I do not see any evidence to suggest endocarditis. Patient remains quite unstable from the pulmonary standpoint and I am concerned if CHASITY is performed may end up putting the patient on the ventilator. I will continue clinical observation on the present medical regimen. PRINCESS / OCTAVIO: [id number] /
--- NOTE | 2017-07-23 15:16 | P.PN ---
Progress Note - Text Progress Note Date: 07/23/17 DATE OF SERVICE: 07/23/2017 PRESENTING COMPLAINT: Shortness of breath HISTORY OF PRESENT ILLNESS: 81-year-old male resident of [facility] [place] with multiple medical problems who presented with fever and generalized weakness, admitted to the regular medical floor with a suspected UTI infection and sepsis.Patient developed bright red blood per rectum and his systolic blood pressure dropped into the 70s and 80s. Hemoglobin was 7.0. Transferred to the ICU. Received 2 units of packed red cells. Elevated kidney function requiring placement of a temporary hemodialysis catheter and hemodialysis has been initiated by nephrology. Became increasingly more short of breath requiring BiPAP support. Has received multiple doses of Lasix, continues to be on and off the BiPAP, Cardizem drip initiated to help control heart rate, Lasix drip initiated to help diurese the patient, receives Levophed for blood pressure support. Has MRSA bacteremia concerns for possible endocarditis however patient is unable to lie flat for CHASITY. Has metastatic prostate cancer with involvement of the rectum causing a GI bleed. INTERVAL HISTORY: 07/23/2017: Lying in bed appears comfortable, currently receiving hemodialysis, afebrile, blood pressure stable, breathing is unlabored, antibiotic continue per ID for presumptive MRSA. Appetite is poor only ate about 20% of his breakfast no shake this morning. Hemoglobin stable at 7.7. 07/22/2017: Patient lying in bed appears comfortable, afebrile, blood pressure stable. Continues to be off Levophed, breathing is normal, antibiotics continue per for presumptive MRSA. Next hemodialysis scheduled for Sunday. Eating better ate about 20% of his breakfast, continues to drink protein shakes included with breakfast. Hemoglobin remained stable at 7.6. BUN and creatinine remain elevated, nephrology was discontinued Lasix for now. Mood is somewhat improved seemingly less frustrated. 07/21/2017: Patient sitting up in his bed, is somewhat restless, afebrile, blood pressure stable, has been off Levophed the last 24 hours breathing is normal, antibiotics continue per for presumptive MRSA. Next hemodialysis is scheduled for Sunday. Informed by nursing patient is requesting a sleeping pill during the day is restless and depressed about being in the hospital. Hemoglobin stable at 7.5,, ate about 20% of his breakfast, continues to drink the shakes, last BM 07/17/2017: 07/20/2017: Sitting up in the bed, receiving dialysis. Received his new dialysis catheter yesterday. Afebrile, blood pressure is stable, Levophed is off continues on antibiotic therapy for presumptive MRSA. Hemoglobin low this morning receive 1 unit of packed red cells. Appetite remains poor, only intake is the shakes that he received with his meals. Megace was added yesterday. Plans to transfer the patient to [address] [place] [address] possibly later today. 07/19/2017: Sitting up in the bed in chair mode, will receive dialysis later today. Temp right groin catheter. Patient does need a new dialysis catheter placed and patient is agreeable arrangement is being made for this to be done today. Remains on Levophed, 4 g, as well as upper lobe pneumonia assumptive MRSA pneumonia. Nutrition services increased supplements due to patient's poor appetite. Nephrology added Megace. 07/18/2017: Lying in bed,status post dialysis catheter placement, previous catheter was clogged attempts made to declog it and were unsuccessful, receiving dialysis. Remains on 3 L nasal cannula, afebrile, remains in sinus rhythm rate in the low 100s,Ramesh catheter needed to be changed and was performed by urology this morning, antibiotic therapy continues for MRSA septicemia, continues to have hypotension requiring the use of pressors, Lasix drip was discontinued, appetite is poor eating very little of his meals but drinking his ensure shakes. 07/17/2017: Patient lying in bed leaning over to the left side of the bed tired appearing complains of pain. Remains on 3 L nasal cannula, afebrile, converted to sinus rhythm yesterday, heart rate remains under control, antibiotic therapy continues for MRSA septicemia hemodialysis scheduled for today as they were unsuccessful yesterday and taking off the full amount. Today's session they had much difficulty with the catheter, TPA placed in the catheter and an attempt will be made to try and dialyze the patient tomorrow if unsuccessful consideration needs to be given to placement of a new dialysis catheter. Levophed continues at 4 g, Lasix drip at 10 mL, appetite is poor is only drinking his ensure shakes. 07/16/2017: Patient lying in bed and is tired appearing, having increasing complaints of pain. Remains on 3 L nasal cannula, afebrile,remains tachycardic, antibiotic therapy continues for MRSA septicemia, hemodialysis later today. Levophed continues at 6 g, insulin drip discontinued, Lasix drip at 10 ml. Appetite poor primarily drinks his ensure shakes. Antibiotics continue in the form of Zosyn and vancomycin. 07/15/2017: Patient lying in bed appears tired today complaining to his left side, remains on 3 L nasal cannula, afebrile, antibiotic therapy continues for MRSA septicemia. Next hemodialysis will be performed on Sunday. Continues to be tachycardic is on and off the Levophed at 5 g an hour for blood pressure support, Lasix drip continues at 10 mg an hour, renal function remains impaired but does have good urine output. Poor appetite, takes primarily his ensure shakes. Antibiotic therapy in the form of Zosyn and vancomycin. Last BM 201707/14/2017: Patient lying in bed, breathing easier. Remains on 3 L nasal cannula, afebrile , antibiotic therapy continues for MRSA septicemia. Hemodialysis done today with 3.5 L removed, patient did become more tachycardic during the procedure. His baseline rate is about 120 beats a minute irregular, blood pressure is in the 110s, Levophed infusion at 2 mics a minute, Lasix drip continues at 10 mg an hour, renal function continues to be impaired. Appetite is poor, does drink his ensure. 07/13/2017: Patient lying in bed receiving hemodialysis, breathing is somewhat easier, heart rate remains elevated. Had an episode of chest discomfort and received Dilaudid which relieved his pain. Pain was located on the right side of the chest and reproducible with palpation. Remains on 5 L nasal cannula did not require any BiPAP support overnight. Hemodialysis was successful removing 3 L of fluid yesterday patient is scheduled for another round of hemodialysis today. Lasix drip continues at 10 mg an hour, remains in atrial fibrillation amiodarone drip at 0.5 mg a minute, norepinephrine was on and off throughout the night. Currently at 4 g. Follow-up blood cultures negative for growth. Remains on daptomycin and ciprofloxacin. REVIEW OF SYSTEMS: Done for constitutional ,cardiovascular, GI, pulmonary with relevant findings as above. CURRENT MEDICATIONS Tylenol, [place] DuoNeb, Cordarone, Casodex, Questran, Aranesp, Colace, hydromorphone, NovoLog, Imodium, Ativan, Megace, melatonin, Lopressor, ProAmatine, MiraLAX, Protonix, Paxil, Zosyn, potassium chloride. PHYSICAL EXAM VITAL SIGNS: Temperature 98.6, pulse 56, respiratory rate 18, blood pressure 98/42, oxygen saturation 97% on 3 L. GENERAL APPEARANCE: Lying in bed, tired appearing, somewhat sleepy HENT: Oral cavity normal external appearance of the ears /nose normal NECK:JVD not raised. Mass not palpable EYES:Pupils equal. Conjunctiva normal. RESPIRATORY: Respiratory effort increased. Diminished bilaterally basilar crackles. CARDIOVASCULAR: First and second sounds normal. Mild edema. ABDOMEN: Soft. Liver and spleen not palpable. No tenderness. No mass palpable. PSYCHIATRY: Alert and oriented x3. Mood and affect somewhat anxious and depressed appearing. INTEGUMENT: Right IJ dialysis catheter placemen right chest wall , right upper arm PICC line . INVESTIGATIONS: LABS: Hemoglobin 7.7, BUN 36, creatinine 4.25, Accu-Cheks noted. Blood cultures: 07/02/2017: MRSA Urine culture: 07/02/2017: Pseudomonas aeruginosa Blood culture: 07/04/2017 repeat: Methicillin-resistant staph aureus Blood culture 07/04,,31: Negative for any growth after 144 hours Sputum culture: 07/14/2017: Destiny glabrata Blood culture: 07/14/2017: Negative for any growth after 144 hours. Echocardiogram: Moderate concentric left ventricular hypertrophy, EF between 40 and 45%, anteroseptal and distal septal hypokinesis, mild aortic valve sclerosis , mild mitral and tricuspid regurgitation, ASSESSMENT: -Methicillin-resistant Staphylococcus aeruginosa bacteremia with suspicion for underlying endocarditis, slow to respond -Possible staphylococcal lung infection/MRSA pneumonia secondary to chest x-ray findings to the upper lobe apices, slow to respond -Volume overload, multifactorial, slow to respond -Anemia, multifactorial, including that of chronic kidney disease and some blood loss, 6.4 today, received 1 unit of packed cells -Metabolic acidosis from acute kidney injury, improved with dialysis -Acute kidney injury from acute tubular necrosis, including hypertension. -Chronic kidney disease, prostate leak from nephrosclerosis. -Hypotensive shock. possibly cardiogenic Levophed off. -Persistent atrial fibrilation controlled currently sinus rhythm on by mouth amiodarone. -Metastatic prostate cancer with involvement of the bone including the inferior pubic rami, liver on PET scan, and the rectum causing rectal bleeding. The patient is getting palliative radiation treatment and Casodex. -Acute blood loss anemia multifactorial having received 1 units packed red blood cells. -Diabetes mellitus type 2 on insulin drip -Hypertension, history of. -Hyperlipidemia. -Acute congestive heart failure from systolic dysfunction ejection fraction 30- 35% could be arrhythmia reduced, slow to respond -Acute hypoxic respiratory failure status post ventilator support, patient currently on 3 L of oxygen, slow to respond -Acute renal failure, likely acute tubular necrosis, now requiring hemodialysis , slow to respond -Acute urinary tract infection with Pseudomonas, status post antibiotic, resolved -CODE STATUS: No code PLAN: Antibiotic therapy continues Zosyn and vancomycin. IV Lasix discontinued due to increasing BUN and creatinine per nephrology, Hemodialysis today with a goal of 2 L to be removed. Repeat echocardiogram done, cardiology does not feel at this time there is any evidence of endocarditis has concerns regarding performing a CHASITY and patient's ability tenuous condition may put him at risk to be placed on the ventilator. Awaiting social work to arrange for patient's hemodialysis as an outpatient and will be transferred at discharge to [facility]. Raymundo continues for depression and pain medications adjusted and working well. Overall prognosis continues to be quite poor particularly with multiple comorbidities and metastatic prostate cancer. Plan of care discussed with the patient the bedside we will follow closely. ESCALATOR OPERATOR statement: Patient was seen and examined by nurse practitioner Beth Hammond and all elements of the case discussed with attending Dr. Ortiz
--- NOTE | 2017-07-23 15:51 | P.PN ---
Subjective Progress Note Date: 07/23/17 Principal diagnosis: Rectal bleeding Progress note dated 07/05/2017 This is a 81-year-old male who is an oncology overflow patient. The patient could be transferred out to the oncology floor. He came in with some rectal bleeding. The reason for the rectal bleeding is because he has prostate cancer which apparently is rotated into the bowel. The plan for him is apparently on radiation therapy. The patient is doing relatively well. Feeling a bit weak. The patient does not require any pressors at this time. Hemodynamically stable and his hemoglobin has been stable. The patient remains on daptomycin and Zosyn. The patient otherwise is doing relatively relatively well. Remains on O2 at 2 L. Currently off anticoagulants. Progress note dated 07/06/2017 81-year-old male with a history of off GI bleed. The patient has a history of prostate cancer which is eroded into the rectum. He's an overflow oncology patient can be transferred out to the oncology floor or to general medical floor. The patient's very stable this point. Blood pressure is been stable. Respiratory status is stable. The patient's on O2 at 2 L by nasal cannula and IV of saline at KVO. The patient is not requiring any additional blood. The patient remains on daptomycin and Zosyn. Hemodynamically stable. The plan is for him to get radiation therapy to the prostate area to hopefully stem the bleeding from the lesion is eroding into the rectum. The patient is off all anticoagulants at this time. Progress note dated 07/23/2017 This is a patient who was admitted about 21 days ago. 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 The patient's tumor spread into the rectum which initially caused him to be admitted for a GI bleed. In addition, the patient has a history of MRSA bacteremia and sepsis acute rectal bleeding acute on chronic renal failure hypoxia make respiratory failure with with extensive upper lobe consolidation chronic atrial fibrillation coronary artery disease diabetes mellitus hyperlipidemia hypertension congestive heart failure lower extremity edema with anasarca chronic anemia general medical debility shingles and urinary tract infection secondary to pseudomonas aeruginosa. Overall, the patient's not a very good shape. He is a no code. The patient is being considered for discharge to a nursing facility or rehab facility. Today the patient's very sleepy and lethargic. No particular complaints today. Objective - Vital Signs Vital signs: Vital Signs Temp 97.3 F L 07/23/17 15:22 Pulse 61 07/23/17 15:33 Resp 20 07/23/17 15:33 BP 141/46 07/23/17 15:22 Pulse Ox 99 07/23/17 15:22 Intake & Output 07/22/17 07/23/17 07/23/17 18:59 06:59 18:59 Intake Total 240 210 510 Output Total 1151 350 Balance -911 -140 510 Weight 106.5 kg 106.5 kg Intake: IV 210 290 Piperacillin-Tazobactam 3 50 50 .375 gm In Dextrose/Water 1 50ml.bag @ 12.5 mls/hr IVPB Q12HR NUZHAT Rx#: [id number] Sodium Chloride 0.9% 1, 160 240 000 ml @ 20 mls/hr IV . Q24H NU[facility]AT Rx#:[id number] Oral 240 220 Output: Urine 1150 350 Stool 1 Other: Voiding Method Indwelling Catheter Indwelling Catheter Indwelling Catheter - Exam No acute distress, the patient is very lethargic and somnolent.. HEENT examination is grossly unremarkable. Mucous membranes are moist. No oral lesions. Neck supple. Full range of motion. No adenopathy thyromegaly or neck vein distention. Cardiovascular examination reveals irregular rhythm. S1-S2 normal. No S3 or S4. No discernible murmur noted. Lungs reveal few scattered rhonchi. Breath sounds are equal bilaterally. No wheezes. No crackles. There is prolongation on forced maneuver.. Abdomen soft bowel sounds are heard. No masses or tenderness. Extremities reveal mild 1+ pitting edema. No cyanosis or clubbing noted. Skin is without rash or lesion. Neurologic examination is very difficult to perform. - Labs CBC & Chem 7: 07/23/17 05:41 07/23/17 05:41 Labs: Abnormal Lab Results - Last 24 Hours (Table) 07/22/17 07/22/17 07/23/17 Range/Units 17:12 21:07 01:37 RBC (4.30-5.90) m/uL Hgb (13.0-17.5) gm/dL Hct (39.0-53.0) % MCHC (31.0-37.0) g/dL RDW (11.5-15.5) % Eosinophils # (0-0.7) k/uL BUN (9-20) mg/dL Creatinine (0.66-1.25) mg/dL Glucose (74-99) mg/dL POC Glucose (mg/dL) 210 H 234 H 135 H (75-99) mg/dL Calcium (8.4-10.2) mg/dL 07/23/17 07/23/17 07/23/17 Range/Units 05:41 05:41 06:05 RBC 2.97 L (4.30-5.90) m/uL Hgb 7.7 L (13.0-17.5) gm/dL Hct 26.8 L (39.0-53.0) % MCHC 28.9 L (31.0-37.0) g/dL RDW 19.1 H (11.5-15.5) % Eosinophils # 1.1 H (0-0.7) k/uL BUN 36 H (9-20) mg/dL Creatinine 4.25 H (0.66-1.25) mg/dL Glucose 140 H (74-99) mg/dL POC Glucose (mg/dL) 152 H (75-99) mg/dL Calcium 8.1 L (8.4-10.2) mg/dL 07/23/17 Range/Units 11:49 RBC (4.30-5.90) m/uL Hgb (13.0-17.5) gm/dL Hct (39.0-53.0) % MCHC (31.0-37.0) g/dL RDW (11.5-15.5) % Eosinophils # (0-0.7) k/uL BUN (9-20) mg/dL Creatinine (0.66-1.25) mg/dL Glucose (74-99) mg/dL POC Glucose (mg/dL) 119 H (75-99) mg/dL Calcium (8.4-10.2) mg/dL Assessment and Plan (1) Diabetes mellitus Current Visit: Yes Status: Acute Code(s): E11.9 - TYPE 2 DIABETES MELLITUS WITHOUT COMPLICATIONS SNOMED Code(s): 86761114 (2) Hypertension Current Visit: Yes Status: Acute Code(s): I10 - ESSENTIAL (PRIMARY) HYPERTENSION SNOMED Code(s): 09067991 (3) Hyperlipidemia Current Visit: Yes Status: Acute Code(s): E78.5 - HYPERLIPIDEMIA, UNSPECIFIED SNOMED Code(s): 51249548 (4) Shingles Current Visit: Yes Status: Acute Code(s): B02.9 - ZOSTER WITHOUT COMPLICATIONS SNOMED Code(s): 0072682 (5) Acute blood loss anemia Current Visit: Yes Status: Acute Priority: High Code(s): D62 - ACUTE POSTHEMORRHAGIC ANEMIA SNOMED Code(s): 649739194 (6) Anemia Current Visit: Yes Status: Acute Code(s): D64.9 - ANEMIA, UNSPECIFIED SNOMED Code(s): 409885676 (7) Prostate cancer Current Visit: Yes Status: Acute Priority: High Code(s): C61 - MALIGNANT NEOPLASM OF PROSTATE SNOMED Code(s): 524644835 (8) Abdominal pain Current Visit: No Status: Acute Code(s): R10.9 - UNSPECIFIED ABDOMINAL PAIN SNOMED Code(s): 36088389 (9) DM type 2 (diabetes mellitus, type 2) Current Visit: No Status: Acute Code(s): E11.9 - TYPE 2 DIABETES MELLITUS WITHOUT COMPLICATIONS SNOMED Code(s): 51436558 (10) GI bleed Current Visit: No Status: Acute Code(s): K92.2 - GASTROINTESTINAL HEMORRHAGE , UNSPECIFIED SNOMED Code(s): 04519838 (11) MRSA bacteremia Current Visit: No Status: Acute Code(s): R78.81 - BACTEREMIA SNOMED Code(s ): 52073755898615157 (12) BPH (benign prostatic hyperplasia) Current Visit: No Status: Chronic Code(s): N40.0 - BENIGN PROSTATIC HYPERPLASIA WITHOUT LOWER URINRY TRACT SYMP SNOMED Code(s): 303761874 (13) CKD (chronic kidney disease) Current Visit: No Status: Chronic Code(s): N18.9 - CHRONIC KIDNEY DISEASE, UNSPECIFIED SNOMED Code(s): 298730756 (14) Paroxysmal A-fib Current Visit: No Status: Chronic Code(s): I48.0 - PAROXYSMAL ATRIAL FIBRILLATION SNOMED Code(s): 190283166 Plan: Plan dated 07/05/2017 The patient's x-rays labs and medications are all reviewed. The patient did get a one-time dose of Lasix. We decrease his fluid chest at KVO. We'll continue to monitor his hemoglobin. We did not do need to do the every 6 hours hemoglobin is being done before. The patient is planning to get some radiation therapy to the prostate area. This will hopefully help the rectal bleeding. Hemoglobin has been stable. The patient can be transferred out to the oncology floor. Overall prognosis is poor. Plan dated 07/06/2017 The patient some medications labs and x-rays are reviewed. The patient can be transferred out to the floor. No additional recommendations are made. She go to oncology or general medical floor. Hemoglobin is stable. No additional bleeding. The plan is for external beam radiation to that area to prevent any further bleeding and to reduce the effects of the prostate cancer eroding into the rectum. Plan dated 07/23/2017. The patient will continue on vancomycin and Zosyn for the time being. The patient will continue with dialysis. The patient sound vasopressor has been weaned off. The patient will continue with treatment per cardiology for the atrial fibrillation. Hopefully the patient can be discharged to rehab facility or long-term. The patient's overall prognosis is very poor. Time with Patient: Less than 30
[2017-07-23 17:02] LABS: Glucose,Whole Blood 124 mg/dL (75-99)
--- NOTE | 2017-07-23 18:26 | PN ---
PROGRESS NOTE DATE OF SERVICE: July 23, 2017. ATTENDING NOTE: Patient seen and examined by me. Discussed with my nurse practitioner, Juanmorro. The patient remains tired. Eating small amounts. On hemodialysis. Tired. Answering questions. PHYSICAL EXAMINATION: Temperature 97.3, pulse 60, respiratory 20, blood pressure 141/46. Lungs decreased breath sounds. Edema is decreased. Answering simple questions. INVESTIGATIONS: White count 8.4, potassium 4.1, Accu-Cheks are noted. ASSESSMENT: Multiple medical problems including MRSA bacteremia, end-stage kidney disease, congestive heart failure, metastatic prostate cancer. Prognosis remains poor. Probably patient may go to the rehab but prognosis does not look good. Antibiotics will be finalized by Dr. Biswas. PRINCESS / AMINTAN: [id number] /
[2017-07-23 21:12] LABS: Glucose,Whole Blood 141 mg/dL (75-99)
--- NOTE | 2017-07-23 22:26 | PN ---
PROGRESS NOTE DATE OF SERVICE: 07/23/2017. REASON FOR FOLLOW UP: 1. 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 2. Pneumonia. INTERVAL HISTORY: The patient is afebrile. Has been breathing comfortably. Hemodynamically stable. Not on any pressor support. Undergoing dialysis. No nausea, vomiting, or any diarrhea. EXAMINATION: Blood pressure is 141/46 with a pulse of 51, temperature 97.3. He is 99% on 2 L nasal cannula. General description is an elderly male lying in bed in no distress. Respiratory system unlabored breathing with decreased breath sounds in the bases. No wheeze. Heart S1, S2 regular rate and rhythm. Abdomen soft, no tenderness. LABS: Hemoglobin is 7.7, white count 8.4 with a BUN of 36, creatinine 4.25. DIAGNOSTIC IMPRESSION AND PLAN: 1. Patient with MRSA bacteremia, with concern for possible endocarditis, CHASITY was discussed once again with the automobile assembly supervisor who let us know the patient is more stable not to undergo the procedure. Keep the patient on vancomycin, pharmacy to dose. Duration of antibiotic patient should be at least 4-6 weeks:. 2. Patient with complaint of pneumonia, currently both on Vanco and Zosyn will be able to discontinue Zosyn at time of discharge. Continue with supportive care. MMODL / IJN: [id number] /
--- NOTE | 2017-07-23 23:32 | PN ---
PROGRESS NOTE Patient is seen for followup for acute kidney injury on top of chronic kidney disease. Currently maintained on hemodialysis. His chronic kidney disease has most likely progressed and he is currently on maintenance dialysis. The patient is seen on hemodialysis today. He is anxious, awaiting for Xanax. His blood pressure is holding. We are trying for about 2 L of ultrafiltration. Blood pressure was 124/66, heart rate 64 per minute. Patient is afebrile. Examination of the heart S1, S2. Examination lungs decreased breath sounds at bases. Abdomen is soft, nontender. Examination lower extremity shows much decreased edema. Chronic skin changes are noted. LABS SHOW: Sodium 138, potassium 4.1, BUN 36, serum creatinine 4.25, hemoglobin 7.7. ASSESSMENT: 1. Chronic kidney disease with the patient currently end-stage renal disease, maintained on hemodialysis. He is being dialyzed much more frequently secondary to fluid volume overload, which seems to have improved. We will maintain him on a Sunday, Sunday, Sunday schedule for now. 2. Severe fluid overload, currently improved. 3. Hypotension, now improved. Maintained on oral midodrine and Levophed has been discontinued and patient is transferred out of the ICU. 4. Metastatic prostatic CA with a rectal mass and GI bleed on and off on radiation therapy. 5. Anemia, multifactorial, maintained on Aranesp for anemia of chronic disease. 6. Generalized debility. 7. MRSA bacteremia on initial admission with possibility for endocarditis. However, a CHASITY could not be done initially as patient was unstable. His repeat blood cultures are now negative. No evidence of vegetation noted on repeat echocardiogram done today. This was a transthoracic echo. MMODL / IJN: [id number] /
[2017-07-24] MEDS: HYDROmorphone 0.5 MG/0.5 ML SYRINGE IVP PRN ×4 (01:34→23:06)
[2017-07-24 02:45] LABS: Glucose,Whole Blood 120 mg/dL (75-99)
[2017-07-24 05:52] LABS: Anisocytosis Slight; Basophils % (A) 0 %; Eosinophils # (A) 0.8 k/uL (0-0.7); Eosinophils % (A) 10 %; HCT 26.8 % (39.0-53.0); HGB 7.9 gm/dL (13.0-17.5); Hypochromasia Marked; Lymphocytes # (A) 1.2 k/uL (1.0-4.8); Lymphocytes % (A) 14 %; MCHC 29.5 g/dL (31.0-37.0); MCV 88.2 fL (80.0-100.0); Monocytes # (A) 0.3 k/uL (0-1.0); Monocytes % (A) 3 %; Neutrophils # (A) 5.8 k/uL (1.3-7.7); Neutrophils % (A) 71 %; Platelet Count 163 k/uL (150-450); Poikilocytosis Slight; RBC 3.04 m/uL (4.30-5.90); RDW 18.5 % (11.5-15.5); WBC 8.2 k/uL (3.8-10.6)
[2017-07-24] MEDS: LORazepam 2 MG/ML INJ IV PRN ×3 (05:56→19:53)
[2017-07-24 06:02] LABS: Calcium 7.8 mg/dL (8.4-10.2)
[2017-07-24 06:49] LABS: Glucose,Whole Blood 125 mg/dL (75-99)
[2017-07-24] MEDS: INSULIN ASPART 100 UNIT/ML 1 ML 10 ML VIAL SQ SCH ×4 (07:43→21:28)
[2017-07-24] MEDS: MEGESTROL 400 MG/10 ML CUP PO SCH (07:55)
[2017-07-24] MEDS: METOPROLOL TARTRATE 25 MG TAB PO SCH ×3 (07:55→21:34)
[2017-07-24] MEDS: BICALUTAMIDE 50 MG TAB PO SCH ×3 (07:55→21:34)
[2017-07-24] MEDS: PANTOPRAZOLE 40 MG TABLET PO SCH (07:55)
[2017-07-24] MEDS: MIDODRINE 5 MG TAB PO SCH ×3 (07:56→17:24)
[2017-07-24] MEDS: AMIODARONE 200 MG TAB PO SCH (07:56)
[2017-07-24] MEDS: PARoxetine 20 MG TAB PO SCH (07:56)
[2017-07-24] MEDS: POTASSIUM CHLORIDE ORAL LIQUID 40 MEQ/30 ML CUP PO SCH (07:56)
[2017-07-24] MEDS: IPRATROPIUM-ALBUTEROL 3 ML NEB INHALATION SCH ×4 (08:21→21:16)
--- NOTE | 2017-07-24 09:21 | P.PN ---
Subjective Patient is seen in follow-up for acute kidney injury on chronic kidney disease. He is currently hemodialysis dependent and maintained on a Sunday schedule. He remains oliguric. He denies chest pain or shortness of breath. He pulled out his permacath yesterday and is scheduled to get a new one placed. Vital signs are stable. General: The patient appeared well nourished and normally developed. HEENT: Head exam is unremarkable. Neck is without jugular venous distension. LUNGS: Lungs are clear to auscultation and percussion. Breath sounds decreased. HEART: Rate and Rhythm are regular. First and second heart sounds normal. No murmurs, rubs or gallops. ABDOMEN: Abdominal exam reveals normal bowel sounds. Non-tender and non- distended. No evidence of peritonitis. EXTREMITITES: Trace edema. Objective - Vital Signs Vital signs: Vital Signs Temp 96.6 F L 07/24/17 08:00 Pulse 68 07/24/17 08:35 Resp 20 07/24/17 08:00 BP 137/64 07/24/17 08:00 Pulse Ox 98 07/24/17 08:21 Intake & Output 07/23/17 07/24/17 07/24/17 18:59 06:59 18:59 Intake Total 510 210 320 Output Total 400 Balance 510 -190 320 Weight 106.5 kg 103.5 kg Intake: IV 290 210 Piperacillin-Tazobactam 3 50 50 .375 gm In Dextrose/Water 1 50ml.bag @ 12.5 mls/hr IVPB Q12HR [facility] Rx#: [id number] Sodium Chloride 0.9% 1, 240 160 000 ml @ 20 mls/hr IV . Q24H [facility] Rx#:[id number] Oral 220 320 Output: Urine 400 Uretheral (Ramesh) 400 Other: Voiding Method Indwelling Catheter Indwelling Catheter Indwelling Catheter # Voids 100 # Bowel Movements 1 - Labs CBC & Chem 7: 07/24/17 05:22 07/24/17 05:22 Labs: Abnormal Lab Results - Last 24 Hours (Table) 07/23/17 07/23/17 07/23/17 Range/Units 11:49 16:56 21:10 RBC (4.30-5.90) m/uL Hgb (13.0-17.5) gm/dL Hct (39.0-53.0) % MCHC (31.0-37.0) g/dL RDW (11.5-15.5) % Eosinophils # (0-0.7) k/uL Sodium (137-145) mmol/L BUN (9-20) mg/dL Creatinine (0.66-1.25) mg/dL Glucose (74-99) mg/dL POC Glucose (mg/dL) 119 H 124 H 141 H (75-99) mg/dL Calcium (8.4-10.2) mg/dL 07/24/17 07/24/17 07/24/17 Range/Units 02:41 05:22 05:22 RBC 3.04 L (4.30-5.90) m/uL Hgb 7.9 L (13.0-17.5) gm/dL Hct 26.8 L (39.0-53.0) % MCHC 29.5 L (31.0-37.0) g/dL RDW 18.5 H (11.5-15.5) % Eosinophils # 0.8 H (0-0.7) k/uL Sodium 135 L (137-145) mmol/L BUN 22 H (9-20) mg/dL Creatinine 3.00 H (0.66-1.25) mg/dL Glucose 119 H (74-99) mg/dL POC Glucose (mg/dL) 120 H (75-99) mg/dL Calcium 7.8 L (8.4-10.2) mg/dL 07/24/17 Range/Units 06:47 RBC (4.30-5.90) m/uL Hgb (13.0-17.5) gm/dL Hct (39.0-53.0) % MCHC (31.0-37.0) g/dL RDW (11.5-15.5) % Eosinophils # (0-0.7) k/uL Sodium (137-145) mmol/L BUN (9-20) mg/dL Creatinine (0.66-1.25) mg/dL Glucose (74-99) mg/dL POC Glucose (mg/dL) 125 H (75-99) mg/dL Calcium (8.4-10.2) mg/dL Assessment and Plan Plan: Assessment: #1. Acute kidney injury on chronic kidney disease now hemodialysis dependent. 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 He is maintained on hemodialysis on a Sunday schedule. #2. Volume overload. Improved with ultrafiltration. #3. Anemia of chronic kidney disease maintained on Aranesp. #4. Metabolic acidosis secondary to acute kidney injury. Improved with dialysis. #5. MRSA bacteremia with question of endocarditis. Maintained on antibiotics per infectious disease recommendations. #6. Hypotension maintained on midodrine. #7. 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 Plan: Hemodialysis tomorrow. Patient will need a new permacath as he pulled it out yesterday. Midodrine 10 mg prior to dialysis. Prognosis guarded. Encouraged oral intake.
[2017-07-24] MEDS: PIPERACILLIN-TAZOBACTAM 3.375 GM in DEXTROSE/WATER 1 50ML.BAG IVPB SCH ×2 (10:15→21:28)
--- NOTE | 2017-07-24 10:56 | P.PN ---
Subjective Progress Note Date: 07/24/17 Principal diagnosis: Rectal bleeding from prostate adenocarcinoma invading the rectum. This is a pleasant 81-year-old gentleman who resides at an extended care facility who has a history of coronary artery disease, paroxysmal atrial fibrillation, diabetes mellitus, hyperlipidemia, hypertension, shingles, MRSA infection in the blood and urine. 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 A recent PET scan revealed large hypermetabolic lesion presumed right-sided prostatic carcinoma there is also evidence of extra Chiller extension into the rectum and into the right pelvis causing osseous destruction of medial right MP a pelvic ramus near pubic symphysis. There is metastatic lesion to the liver as well. Patient was readmitted yesterday with fever and generalized weakness. Gentleman admitted to the regular medical floor with suspected urinary tract infection and sepsis. Last evening he developed bright red bleeding from the rectum approximately 50 MLS. He did have a drop in his systolic blood pressure into the 70s and 80s. His hemoglobin was 7.0. He was transferred here to the intensive care unit. He did not require any pressors. Did receive 2 units of packed red blood cells in his current hemoglobin is 8.6. White count 11.7. Creatinine 3.10. AST 158, ALT 106 Blood cultures are revealing presumptive MRSA. His chest x-ray shows mild fluid volume overload with small effusions. He is maintaining O2 saturations in the upper 90s on 2 L/m per nasal cannula. Progress note dated 07/23/2017 This is a patient who was admitted about 21 days ago. 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 The patient's tumor spread into the rectum which initially caused him to be admitted for a GI bleed. In addition, the patient has a history of MRSA bacteremia and sepsis acute rectal bleeding acute on chronic renal failure hypoxia make respiratory failure with with extensive upper lobe consolidation chronic atrial fibrillation coronary artery disease diabetes mellitus hyperlipidemia hypertension congestive heart failure lower extremity edema with anasarca chronic anemia general medical debility shingles and urinary tract infection secondary to pseudomonas aeruginosa. Overall, the patient's not a very good shape. He is a no code. The patient is being considered for discharge to a nursing facility or rehab facility. Today the patient's very sleepy and lethargic. No particular complaints today This note dated 07/24/2017 The patient is seen again today in follow-up on the selective care unit. He is currently resting quite comfortably in bed. He is maintaining good O2 saturations in the upper 90s on 3 L/m per nasal cannula. He's been afebrile. Hemodynamically stable. His current hemoglobin is 7.9. He is status post 3 units of packed red blood cells since admission. He had developed a MRSA bacteremia. Sputum was positive for Destiny glabrata. Follow-up blood cultures have revealed no growth. He remains on vancomycin and Zosyn. No leukocytosis. Creatinine 3.00. Objective - Vital Signs Vital signs: Vital Signs Temp 96.6 F L 07/24/17 08:00 Pulse 68 07/24/17 08:35 Resp 20 07/24/17 08:00 BP 137/64 07/24/17 08:00 Pulse Ox 98 07/24/17 08:21 Intake & Output 07/23/17 07/24/17 07/24/17 18:59 06:59 18:59 Intake Total 510 210 320 Output Total 400 Balance 510 -190 320 Weight 106.5 kg 103.5 kg Intake: IV 290 210 Piperacillin-Tazobactam 3 50 50 .375 gm In Dextrose/Water 1 50ml.bag @ 12.5 mls/hr IVPB Q12HR [facility] Rx#: [id number] Sodium Chloride 0.9% 1, 240 160 000 ml @ 20 mls/hr IV . Q24H [facility] Rx#:[id number] Oral 220 320 Output: Urine 400 Uretheral (Ramesh) 400 Other: Voiding Method Indwelling Catheter Indwelling Catheter Indwelling Catheter # Voids 100 # Bowel Movements 1 - Exam GENERAL EXAM: Alert, fairly comfortable in no apparent distress. HEAD: Normocephalic. EYES: Normal reaction of pupils, equal size. NOSE: Clear with pink turbinates. THROAT: No erythema or exudates. NECK: No masses, no JVD. CHEST: No chest wall deformity. LUNGS: Equal air entry with crackles posterior bases. CVS: S1 and S2 normal with no audible murmur, irregular rhythm. ABDOMEN: No hepatosplenomegaly, normal bowel sounds, no guarding or rigidity. SPINE: No scoliosis or deformity SKIN: No rashes CENTRAL NERVOUS SYSTEM: No focal deficits, tone is normal in all 4 extremities. EXTREMITIES: There is no peripheral edema. No clubbing, no cyanosis. Peripheral pulses are intact. - Labs CBC & Chem 7: 07/24/17 05:22 07/24/17 05:22 Labs: Abnormal Lab Results - Last 24 Hours (Table) 07/23/17 07/23/17 07/23/17 Range/Units 11:49 16:56 21:10 RBC (4.30-5.90) m/uL Hgb (13.0-17.5) gm/dL Hct (39.0-53.0) % MCHC (31.0-37.0) g/dL RDW (11.5-15.5) % Eosinophils # (0-0.7) k/uL Sodium (137-145) mmol/L BUN (9-20) mg/dL Creatinine (0.66-1.25) mg/dL Glucose (74-99) mg/dL POC Glucose (mg/dL) 119 H 124 H 141 H (75-99) mg/dL Calcium (8.4-10.2) mg/dL 07/24/17 07/24/17 07/24/17 Range/Units 02:41 05:22 05:22 RBC 3.04 L (4.30-5.90) m/uL Hgb 7.9 L (13.0-17.5) gm/dL Hct 26.8 L (39.0-53.0) % MCHC 29.5 L (31.0-37.0) g/dL RDW 18.5 H (11.5-15.5) % Eosinophils # 0.8 H (0-0.7) k/uL Sodium 135 L (137-145) mmol/L BUN 22 H (9-20) mg/dL Creatinine 3.00 H (0.66-1.25) mg/dL Glucose 119 H (74-99) mg/dL POC Glucose (mg/dL) 120 H (75-99) mg/dL Calcium 7.8 L (8.4-10.2) mg/dL 07/24/17 Range/Units 06:47 RBC (4.30-5.90) m/uL Hgb (13.0-17.5) gm/dL Hct (39.0-53.0) % MCHC (31.0-37.0) g/dL RDW (11.5-15.5) % Eosinophils # (0-0.7) k/uL Sodium (137-145) mmol/L BUN (9-20) mg/dL Creatinine (0.66-1.25) mg/dL Glucose (74-99) mg/dL POC Glucose (mg/dL) 125 H (75-99) mg/dL Calcium (8.4-10.2) mg/dL Assessment and Plan Assessment: Impression: #1 Acute rectal bleeding secondary to invading prostate mass. Status post 3 units of packed red blood cell infusions. Current hemoglobin 7.9. #2 Large hypermetabolic lesion of right-sided prostatic carcinoma with evidence of extra capsular extension into the rectum and into the right pelvis causing osseous distraction of medial right inferior pelvic ramus near pubic symphysis. Metastatic lesion to the liver. #3 Sepsis secondary to MRSA bacteremia. Follow-up blood cultures reveal no growth. #4 Acute on chronic renal failure, requiring recent daily hemodialysis. Current creatinine 3.00. #5 Elevated liver enzymes with metastatic liver lesion. #6 Paroxysmal atrial fibrillation. #7 Coronary artery disease. #8 Diabetes mellitus. #9 Hyperlipidemia. #10 Hypertension. #11 History of shingles. #12 penitentiary resident. Plan: The patient was seen and evaluated by Dr. Barrow. The patient is currently stable from the pulmonary standpoint. The plan is for transfer to an extended care facility post discharge. I, the cosigning physician, have performed a history and physical examination on the patient. Lung sounds have crackles in the bilateral posterior bases.. Maintaining good O2 saturations in the 90s on 3 L/m per nasal cannula. I have discussed the assessment and plan of care with my nurse practitioner, Karmen Seo. I attest the above documented note as dictated by her.
[2017-07-24] MEDS: CHOLESTYRAMINE (WITH SUGAR) 4 GM PACKET PO SCH ×2 (11:30→17:24)
[2017-07-24 12:35] LABS: Glucose,Whole Blood 145 mg/dL (75-99)
[2017-07-24] MEDS ORDERED: LIDOCAINE 2% INJ 20 MG/ML SQ ONE (13:47)
--- NOTE | 2017-07-24 14:40 | IR ---
Fluoroscopy HISTORY: Central venous catheter placement 1.3 minutes fluoroscopy time supplied to the referring clinician. 47 intraoperative C-arm images doc ument the procedure. See dictated report from vascular surgery.
--- NOTE | 2017-07-24 14:59 | P.PN ---
Subjective Progress Note Date: 07/24/17 Principal diagnosis: Paroxysmal atrial fibrillation This is an 81-year-old gentleman follows with Dr. VC Carrion in the office as an outpatient. He has a past medical history significant for paroxysmal atrial fibrillation, prostate cancer, and initially admitted to the fourth floor and was transferred to the intensive care unit because of rectal bleeding. He is currently being followed on the telemetry unit. Patient is quite confused this morning, there is a sitter at the bedside. He is remaining in a normal sinus rhythm. Denies any chest pain, breathing is stable. Objective - Vital Signs Vital signs: Vital Signs Temp 96.8 F L 07/24/17 11:21 Pulse 65 07/24/17 11:21 Resp 20 07/24/17 11:21 BP 143/69 07/24/17 11:21 Pulse Ox 98 07/24/17 11:21 Intake & Output 07/23/17 07/24/17 07/24/17 18:59 06:59 18:59 Intake Total 510 210 560 Output Total 400 Balance 510 -190 560 Weight 106.5 kg 103.5 kg Intake: IV 290 210 240 Piperacillin-Tazobactam 3 50 50 .375 gm In Dextrose/Water 1 50ml.bag @ 12.5 mls/hr IVPB Q12HR [facility] Rx#: [id number] Sodium Chloride 0.9% 1, 240 160 240 000 ml @ 20 mls/hr IV . Q24H [facility] Rx#:[id number] Oral 220 320 Output: Urine 400 Uretheral (Ramesh) 400 Other: Voiding Method Indwelling Catheter Indwelling Catheter Indwelling Catheter # Voids 100 # Bowel Movements 1 2 - Exam PHYSICAL EXAMINATION: HEENT: Head is atraumatic, normocephalic. Pupils equal, round. Neck is supple. There is no elevated jugular venous pressure. HEART EXAMINATION: Heart S1 and S2 systolic murmur is heard CHEST EXAMINATION: Lungs are clear to auscultation and precussion. No chest wall tenderness is noted on palpation or with deep breathing. ABDOMEN: Soft, nontender. Bowel sounds are heard. No organomegaly noted. EXTREMITIES: 2+ peripheral pulses with trace evidence of peripheral edema and no calf tenderness noted. NEUROLOGIC [patient is confused - Labs CBC & Chem 7: 07/24/17 05:22 07/24/17 05:22 Labs: Abnormal Lab Results - Last 24 Hours (Table) 07/23/17 07/23/17 07/24/17 Range/Units 16:56 21:10 02:41 RBC (4.30-5.90) m/uL Hgb (13.0-17.5) gm/dL Hct (39.0-53.0) % MCHC (31.0-37.0) g/dL RDW (11.5-15.5) % Eosinophils # (0-0.7) k/uL Sodium (137-145) mmol/L BUN (9-20) mg/dL Creatinine (0.66-1.25) mg/dL Glucose (74-99) mg/dL POC Glucose (mg/dL) 124 H 141 H 120 H (75-99) mg/dL Calcium (8.4-10.2) mg/dL 07/24/17 07/24/17 07/24/17 Range/Units 05:22 05:22 06:47 RBC 3.04 L (4.30-5.90) m/uL Hgb 7.9 L (13.0-17.5) gm/dL Hct 26.8 L (39.0-53.0) % MCHC 29.5 L (31.0-37.0) g/dL RDW 18.5 H (11.5-15.5) % Eosinophils # 0.8 H (0-0.7) k/uL Sodium 135 L (137-145) mmol/L BUN 22 H (9-20) mg/dL Creatinine 3.00 H (0.66-1.25) mg/dL Glucose 119 H (74-99) mg/dL POC Glucose (mg/dL) 125 H (75-99) mg/dL Calcium 7.8 L (8.4-10.2) mg/dL 07/24/17 Range/Units 12:33 RBC (4.30-5.90) m/uL Hgb (13.0-17.5) gm/dL Hct (39.0-53.0) % MCHC (31.0-37.0) g/dL RDW (11.5-15.5) % Eosinophils # (0-0.7) k/uL Sodium (137-145) mmol/L BUN (9-20) mg/dL Creatinine (0.66-1.25) mg/dL Glucose (74-99) mg/dL POC Glucose (mg/dL) 145 H (75-99) mg/dL Calcium (8.4-10.2) mg/dL Assessment and Plan Plan: Assessment and plan #1 paroxysmal atrial fibrillation, remaining in normal sinus rhythm. #2 renal failure, on hemodialysis #3 prostate cancer #4 pneumonia # 5 GI bleed Plan Cardiology's perspective, we will continue clinical observation and continue current medications. DNP note has been reviewed, I agree with a documented findings and plan of care. Patient was seen and examined.
--- NOTE | 2017-07-24 15:06 | PN ---
PROGRESS NOTE DATE OF SERVICE: 07/24/2017 REASON FOR FOLLOWUP: MRSA bacteremia. Consult for endocarditis, possible pneumonia. INTERVAL HISTORY: The patient is afebrile. Has been breathing comfortably. No chest pain. Occasional cough which is dry in nature. No abdominal pain. Note did have slightly loose stool but frequency is not more than once or twice a day. No blood or mucus in the stools per the aide taking care of the patient. PHYSICAL EXAMINATION: Blood pressure 143/69 with a pulse of 65, temperature 96.8. He is 98% on 2 L nasal cannula. General description is elderly male, lying in bed in no distress. RESPIRATORY SYSTEM: Unlabored breathing. Some decreased breath sounds in the bases, no wheeze. HEART: S1, S2. Regular rate and rhythm. ABDOMEN: Soft, no tenderness. LABS: Hemoglobin is 7.8, white count 8.2 with a BUN of 22, creatinine 3.0. Blood culture repeat has been negative. DIAGNOSTIC IMPRESSION AND PLAN: Patient with methicillin-resistant Staphylococcus aureus bacteremia with concern high for possible micro endocarditis. His care was discussed in detail with the professor of anthropology and he was discussed and now recommending CHASITY. We will keep the patient on vancomycin to finish a 6-week course of therapy. Zosyn will be discontinued. For discharge we are recommending doing the vancomycin through the dialysis so we can avoid any further IV line for him. MMODL / IJN: [id number] /
--- NOTE | 2017-07-24 15:30 | XR ---
EXAMINATION TYPE: XR chest 1V DATE OF EXAM: 07/24/2017 COMPARISON: 07/23/2017 HISTORY: Line placement TECHNIQUE: Single frontal view of the chest is obtained. FINDINGS: Right PICC has either been exchanged or advanced in the interim with its distal tip now in the high right atrium approximately 5 cm deep to the cavoatrial junction. Dual lumen right-sided hem odialysis catheter is again noted. Biapical patchy opacities and to a lesser degree retrocardiac as well as right infrahilar opacities a re redemonstrated, similar to the prior. Mild interstitial pulmonary edema and pulmonary vascular con gestion in combination with mild cardiomegaly are again seen. IMPRESSION: 1. Exchanged or advanced right PICC now terminating in the right atrium approximately 5 cm distal to the cavoatrial junction. 2. Stable multifocal opacities in the upper lungs, right infrahilar region and retrocardiac region. T hese may relate to confluent pulmonary edema or multifocal pneumonia. 3. Mild pulmonary vascular congestion/interstitial edema may be cardiogenic or noncardiogenic fluid o verload.
--- NOTE | 2017-07-24 16:26 | P.PN ---
Progress Note - Text Progress Note Date: 07/24/17 DATE OF SERVICE: 07/24/2017 PRESENTING COMPLAINT: Shortness of breath HISTORY OF PRESENT ILLNESS: 81-year-old male resident of [facility] on the [place] with multiple medical problems who presented with fever and generalized weakness, admitted to the regular medical floor with a suspected UTI infection and sepsis.Patient developed bright red blood per rectum and his systolic blood pressure dropped into the 70s and 80s. Hemoglobin was 7.0. Transferred to the ICU. Received 2 units of packed red cells. Elevated kidney function requiring placement of a temporary hemodialysis catheter and hemodialysis has been initiated by nephrology. Became increasingly more short of breath requiring BiPAP support. Has received multiple doses of Lasix, continues to be on and off the BiPAP, Cardizem drip initiated to help control heart rate, Lasix drip initiated to help diurese the patient, receives Levophed for blood pressure support. Has MRSA bacteremia concerns for possible endocarditis however patient is unable to lie flat for CHASITY. Has metastatic prostate cancer with involvement of the rectum causing a GI bleed. INTERVAL HISTORY: 07/24/2017: Lying in bed quite restless, able to answer simple straightforward questions has bit of confusion. Afebrile, blood pressure stable, breathing unlabored, continues antibiotics for presumptive MRSA. Continues only to have shakes, appetite is poor, hemoglobin stable. 07/23/2017: Lying in bed appears comfortable, currently receiving hemodialysis, afebrile, blood pressure stable, breathing is unlabored, antibiotic continue per ID for presumptive MRSA. Appetite is poor only ate about 20% of his breakfast no shake this morning. Hemoglobin stable at 7.7. 07/22/2017: Patient lying in bed appears comfortable, afebrile, blood pressure stable. Continues to be off Levophed, breathing is normal, antibiotics continue per for presumptive MRSA. Next hemodialysis scheduled for Sunday. Eating better ate about 20% of his breakfast, continues to drink protein shakes included with breakfast. Hemoglobin remained stable at 7.6. BUN and creatinine remain elevated, nephrology was discontinued Lasix for now. Mood is somewhat improved seemingly less frustrated. 07/21/2017: Patient sitting up in his bed, is somewhat restless, afebrile, blood pressure stable, has been off Levophed the last 24 hours breathing is normal, antibiotics continue per for presumptive MRSA. Next hemodialysis is scheduled for Sunday. Informed by nursing patient is requesting a sleeping pill during the day is restless and depressed about being in the hospital. Hemoglobin stable at 7.5,, ate about 20% of his breakfast, continues to drink the shakes, last BM 07/17/2017: 07/20/2017: Sitting up in the bed, receiving dialysis. Received his new dialysis catheter yesterday. Afebrile, blood pressure is stable, Levophed is off continues on antibiotic therapy for presumptive MRSA. Hemoglobin low this morning receive 1 unit of packed red cells. Appetite remains poor, only intake is the shakes that he received with his meals. Megace was added yesterday. Plans to transfer the patient to [address] [place] [address] possibly later today. 07/19/2017: Sitting up in the bed in chair mode, will receive dialysis later today. Temp right groin catheter. Patient does need a new dialysis catheter placed and patient is agreeable arrangement is being made for this to be done today. Remains on Levophed, 4 g, as well as upper lobe pneumonia assumptive MRSA pneumonia. Nutrition services increased supplements due to patient's poor appetite. Nephrology added Megace. 07/18/2017: Lying in bed,status post dialysis catheter placement, previous catheter was clogged attempts made to declog it and were unsuccessful, receiving dialysis. Remains on 3 L nasal cannula, afebrile, remains in sinus rhythm rate in the low 100s,Ramesh catheter needed to be changed and was performed by urology this morning, antibiotic therapy continues for MRSA septicemia, continues to have hypotension requiring the use of pressors, Lasix drip was discontinued, appetite is poor eating very little of his meals but drinking his ensure shakes. 07/17/2017: Patient lying in bed leaning over to the left side of the bed tired appearing complains of pain. Remains on 3 L nasal cannula, afebrile, converted to sinus rhythm yesterday, heart rate remains under control, antibiotic therapy continues for MRSA septicemia hemodialysis scheduled for today as they were unsuccessful yesterday and taking off the full amount. Today's session they had much difficulty with the catheter, TPA placed in the catheter and an attempt will be made to try and dialyze the patient tomorrow if unsuccessful consideration needs to be given to placement of a new dialysis catheter. Levophed continues at 4 g, Lasix drip at 10 mL, appetite is poor is only drinking his ensure shakes. 07/16/2017: Patient lying in bed and is tired appearing, having increasing complaints of pain. Remains on 3 L nasal cannula, afebrile,remains tachycardic, antibiotic therapy continues for MRSA septicemia, hemodialysis later today. Levophed continues at 6 g, insulin drip discontinued, Lasix drip at 10 ml. Appetite poor primarily drinks his ensure shakes. Antibiotics continue in the form of Zosyn and vancomycin. 07/15/2017: Patient lying in bed appears tired today complaining to his left side, remains on 3 L nasal cannula, afebrile, antibiotic therapy continues for MRSA septicemia. Next hemodialysis will be performed on Sunday. Continues to be tachycardic is on and off the Levophed at 5 g an hour for blood pressure support, Lasix drip continues at 10 mg an hour, renal function remains impaired but does have good urine output. Poor appetite, takes primarily his ensure shakes. Antibiotic therapy in the form of Zosyn and vancomycin. Last BM 201707/14/2017: Patient lying in bed, breathing easier. Remains on 3 L nasal cannula, afebrile , antibiotic therapy continues for MRSA septicemia. Hemodialysis done today with 3.5 L removed, patient did become more tachycardic during the procedure. His baseline rate is about 120 beats a minute irregular, blood pressure is in the 110s, Levophed infusion at 2 mics a minute, Lasix drip continues at 10 mg an hour, renal function continues to be impaired. Appetite is poor, does drink his ensure. 07/13/2017: Patient lying in bed receiving hemodialysis, breathing is somewhat easier, heart rate remains elevated. Had an episode of chest discomfort and received Dilaudid which relieved his pain. Pain was located on the right side of the chest and reproducible with palpation. Remains on 5 L nasal cannula did not require any BiPAP support overnight. Hemodialysis was successful removing 3 L of fluid yesterday patient is scheduled for another round of hemodialysis today. Lasix drip continues at 10 mg an hour, remains in atrial fibrillation amiodarone drip at 0.5 mg a minute, norepinephrine was on and off throughout the night. Currently at 4 g. Follow-up blood cultures negative for growth. Remains on daptomycin and ciprofloxacin. REVIEW OF SYSTEMS: Done for constitutional ,cardiovascular, GI, pulmonary with relevant findings as above. CURRENT MEDICATIONS Tylenol, [place], DuoNeb, amiodarone, Casodex, Questran, Aranesp, docusate sodium , Dilaudid, Imodium, Ativan, Megace, melatonin, Lopressor, midodrine, vancomycin , Zofran, Protonix, Paxil, Zosyn, potassium chloride. PHYSICAL EXAM VITAL SIGNS: Temperature 96.6, pulse 66, respiratory rate 20, blood pressure 137/64 oxygen saturation 99% on 3 L. GENERAL APPEARANCE: Lying in bed, tired appearing, somewhat restless HENT:Normocephalic, oral cavity normal, external appearance of the ears/nose normal, . EYES:Pupils equal. Conjunctiva normal NECK: JVD not raised. Mass not palpable RESPIRATORY: Respiratory effort increased. Diminished bilaterally basilar crackles. CARDIOVASCULAR: First and second sounds normal. Mild edema. ABDOMEN: Soft. Liver and spleen not palpable. No tenderness. No mass palpable. PSYCHIATRY: Alert to name and able to answer some simple straightforward questions. Mood and affect somewhat anxious restless and depressed appearing. INTEGUMENT: Right IJ dialysis catheter placemen right chest wall , right upper arm PICC line . INVESTIGATIONS: LABS: Hemoglobin 7.9, sodium 135, BUN 22, creatinine 3.00, Accu-Cheks noted. Blood cultures: 07/02/2017: MRSA Urine culture: 07/02/2017: Pseudomonas aeruginosa Blood culture: 07/04/2017 repeat: Methicillin-resistant staph aureus Blood culture 07/04,,31: Negative for any growth after 144 hours Sputum culture: 07/14/2017: Destiny glabrata Blood culture: 07/14/2017: Negative for any growth after 144 hours. Echocardiogram: Moderate concentric left ventricular hypertrophy, EF between 40 and 45%, anteroseptal and distal septal hypokinesis, mild aortic valve sclerosis , mild mitral and tricuspid regurgitation, ASSESSMENT: -Methicillin-resistant Staphylococcus aeruginosa bacteremia with suspicion for underlying endocarditis, slow to respond -Possible staphylococcal lung infection/MRSA pneumonia secondary to chest x-ray findings to the upper lobe apices, slow to respond -Volume overload, multifactorial, slow to respond -Anemia, multifactorial, including that of chronic kidney disease and some blood loss, 6.4 today, received 1 unit of packed cells -Metabolic acidosis from acute kidney injury, improved with dialysis -Acute kidney injury from acute tubular necrosis, including hypertension. -Chronic kidney disease, prostate leak from nephrosclerosis. -Hypotensive shock. possibly cardiogenic Levophed off. -Persistent atrial fibrilation controlled currently sinus rhythm on by mouth amiodarone. -Metastatic prostate cancer with involvement of the bone including the inferior pubic rami, liver on PET scan, and the rectum causing rectal bleeding. The patient is getting palliative radiation treatment and Casodex. -Acute blood loss anemia multifactorial having received 1 units packed red blood cells. -Diabetes mellitus type 2 on insulin drip -Hypertension, history of. -Hyperlipidemia. -Acute congestive heart failure from systolic dysfunction ejection fraction 30- 35% could be arrhythmia reduced, slow to respond -Acute hypoxic respiratory failure status post ventilator support, patient currently on 3 L of oxygen, slow to respond -Acute renal failure, likely acute tubular necrosis, now requiring hemodialysis , slow to respond -Acute urinary tract infection with Pseudomonas, status post antibiotic, resolved -CODE STATUS: No code PLAN: Antibiotic therapy continues in the form of vancomycin finishes 6 week course of therapy as cardiology is recommending a HCASITY with concerns for micro- endocarditis per infectious disease. Per cardiology's note dated 07/23/2017, Repeat echocardiogram done, cardiology does not feel at this time there is any evidence of endocarditis has concerns regarding performing a CHASITY and patient's ability tenuous condition may put him at risk to be placed on the ventilator. Awaiting social work to arrange for patient's hemodialysis as an outpatient and will be transferred at discharge to [facility]. Overall prognosis continues to be quite poor particularly with multiple comorbidities and metastatic prostate cancer. Plan of care discussed with the patient the bedside we will follow closely. 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 Ortiz
[2017-07-24 17:00] LABS: Glucose,Whole Blood 180 mg/dL (75-99)
[2017-07-24 20:52] LABS: Glucose,Whole Blood 166 mg/dL (75-99)
[2017-07-25] MEDS: LORazepam 2 MG/ML INJ IV PRN ×4 (01:57→21:10)
[2017-07-25] MEDS: MIDODRINE 5 MG TAB PO SCH ×3 (04:06→17:24)
--- NOTE | 2017-07-25 05:18 | PN ---
PROGRESS NOTE DATE OF SERVICE: 07/24/2017 ATTENDING NOTE: The patient was seen and examined by me. Discussed with nurse practitioner, Ms. Hammond. The patient has become more confused, did pull out a line. The patient was taken down for permanent catheter placement. Has a sitter at the bedside. Patient able to answer some question. Barely eating. ON EXAM: LUNGS: Decreased breath sounds. Dressing over the right chest wall permanent catheter. Able answer some simple questions, but then drifts off. Afebrile, pulse 63, respiratory 18, blood pressure 150/87. ASSESSMENT: Multiple medical problems including now acute delirium/metabolic encephalopathy. Overall patient is doing rather poorly and I am not sure he is going to survive like this with not barely eating, a new confusion that is now ensued. I am going to ask the nurse to get a family meeting with the son and daughter and the . Also discussed with Dr. Barrow and he agrees about the patient probably being a better candidate for hospice. Will address this tomorrow with the family. MMRADHAL / IJN: [id number] /
[2017-07-25 05:46] LABS: Glucose,Whole Blood 135 mg/dL (75-99)
[2017-07-25 05:52] LABS: Anisocytosis Slight; Basophils % (A) 0 %; Eosinophils # (A) 0.7 k/uL (0-0.7); Eosinophils % (A) 10 %; HCT 25.9 % (39.0-53.0); HGB 7.7 gm/dL (13.0-17.5); Hypochromasia Marked; Lymphocytes % (A) 13 %; MCH 26.7 pg (25.0-35.0); MCHC 29.7 g/dL (31.0-37.0); MCV 89.8 fL (80.0-100.0); Monocytes # (A) 0.3 k/uL (0-1.0); Monocytes % (A) 4 %; Neutrophils # (A) 5.5 k/uL (1.3-7.7); Neutrophils % (A) 72 %; Platelet Count 215 k/uL (150-450); Poikilocytosis Slight; RBC 2.89 m/uL (4.30-5.90); RDW 17.7 % (11.5-15.5); WBC 7.6 k/uL (3.8-10.6)
[2017-07-25] MEDS: INSULIN ASPART 100 UNIT/ML 1 ML 10 ML VIAL SQ SCH ×4 (05:56→21:00)
[2017-07-25 06:04] LABS: Potassium 4.3 mmol/L (3.5-5.1)
[2017-07-25 06:09] LABS: Vancomycin,Random 30.1 ug/mL
[2017-07-25] MEDS: PIPERACILLIN-TAZOBACTAM 3.375 GM in DEXTROSE/WATER 1 50ML.BAG IVPB SCH ×2 (07:59→20:13)
[2017-07-25] MEDS: IPRATROPIUM-ALBUTEROL 3 ML NEB INHALATION SCH ×4 (08:44→20:07)
--- NOTE | 2017-07-25 09:13 | PCN ---
PROCEDURE NOTE PREOPERATIVE DIAGNOSIS: Acute kidney failure, placement of a 28 cm dialysis catheter ultrasound-guided right internal jugular vein. This patient had a 28 cm dialysis catheter placed last week. The patient pulled his catheter out. We brought this patient to the [facility]. The right side of the neck and chest was prepped and draped in a sterile manner; 1% lidocaine infiltrated. Ultrasound- guided micropuncture into the right internal jugular vein. Then 4 Togolese dilator advanced, then tunnel was created. Through the tunnel we brought 28 cm dialysis catheter. The sheath was advanced on the top of the guidewire. Through the sheath we introduced the dialysis catheter. Tip of the catheter in the superior vena cava and atrium, flushed with heparin and saline and secured with 3-0 nylon. Dressing applied. Patient tolerated the procedure well. MMODL / IJN: [id number] /
[2017-07-25] MEDS: HYDROmorphone 0.5 MG/0.5 ML SYRINGE IVP PRN ×4 (09:29→20:13)
--- NOTE | 2017-07-25 09:45 | P.PN ---
Subjective Progress Note Date: 07/25/17 Principal diagnosis: Rectal bleeding from prostate adenocarcinoma invading the rectum. This is a pleasant 81-year-old gentleman who resides at an extended care facility who has a history of coronary artery disease, paroxysmal atrial fibrillation, diabetes mellitus, hyperlipidemia, hypertension, shingles, MRSA infection in the blood and urine. 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 A recent PET scan revealed large hypermetabolic lesion presumed right-sided prostatic carcinoma there is also evidence of extra Chiller extension into the rectum and into the right pelvis causing osseous destruction of medial right MP a pelvic ramus near pubic symphysis. There is metastatic lesion to the liver as well. Patient was readmitted yesterday with fever and generalized weakness. Gentleman admitted to the regular medical floor with suspected urinary tract infection and sepsis. Last evening he developed bright red bleeding from the rectum approximately 50 MLS. He did have a drop in his systolic blood pressure into the 70s and 80s. His hemoglobin was 7.0. He was transferred here to the intensive care unit. He did not require any pressors. Did receive 2 units of packed red blood cells in his current hemoglobin is 8.6. White count 11.7. Creatinine 3.10. AST 158, ALT 106 Blood cultures are revealing presumptive MRSA. His chest x-ray shows mild fluid volume overload with small effusions. He is maintaining O2 saturations in the upper 90s on 2 L/m per nasal cannula. Progress note dated 07/23/2017 This is a patient who was admitted about 21 days ago. 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 The patient's tumor spread into the rectum which initially caused him to be admitted for a GI bleed. In addition, the patient has a history of MRSA bacteremia and sepsis acute rectal bleeding acute on chronic renal failure hypoxia make respiratory failure with with extensive upper lobe consolidation chronic atrial fibrillation coronary artery disease diabetes mellitus hyperlipidemia hypertension congestive heart failure lower extremity edema with anasarca chronic anemia general medical debility shingles and urinary tract infection secondary to pseudomonas aeruginosa. Overall, the patient's not a very good shape. He is a no code. The patient is being considered for discharge to a nursing facility or rehab facility. Today the patient's very sleepy and lethargic. No particular complaints today Progress note dated 07/24/2017 The patient is seen again today in follow-up on the selective care unit. He is currently resting quite comfortably in bed. He is maintaining good O2 saturations in the upper 90s on 3 L/m per nasal cannula. He's been afebrile. Hemodynamically stable. His current hemoglobin is 7.9. He is status post 3 units of packed red blood cells since admission. He had developed a MRSA bacteremia. Sputum was positive for Destiny glabrata. Follow-up blood cultures have revealed no growth. He remains on vancomycin and Zosyn. No leukocytosis. Creatinine 3.00. Progress note dated 07/25/2017 The patient is seen again today in follow-up on the selective care unit. He is awake and alert. He is restless. The patient removed his hemodialysis catheter last evening. A new 28 cm dialysis catheter was inserted into the right internal jugular vein this morning by vascular services. He is currently receiving hemodialysis. A sitter is at the bedside. White count 7.6, hemoglobin 7.7, creatinine 3.40. He is maintaining good O2 saturations in the high 90s on 2 L/m per nasal cannula. Hemodynamically stable. The plan is for a family meeting today regarding the patient's increased confusion and very poor appetite. He may be a hospice candidate. Objective - Vital Signs Vital signs: Vital Signs Temp 96.6 F L 07/25/17 03:12 Pulse 65 07/25/17 03:12 Resp 18 07/25/17 03:12 BP 145/66 07/25/17 03:12 Pulse Ox 99 07/25/17 03:12 Intake & Output 07/24/17 07/25/17 07/25/17 18:59 06:59 18:59 Intake Total 560 370 120 Output Total 600 400 Balance -40 -30 120 Weight 105 kg Intake: IV 240 370 Piperacillin-Tazobactam 3 50 .375 gm In Dextrose/Water 1 50ml.bag @ 12.5 mls/hr IVPB Q12HR NUZHAT Rx#: [id number] Sodium Chloride 0.9% 1, 240 320 000 ml @ 20 mls/hr IV . Q24H NUZHAT Rx#:[id number] Oral 320 120 Output: Urine 600 400 Uretheral (Ramesh) 400 Other: Voiding Method Indwelling Catheter Indwelling Catheter # Bowel Movements 1 - Exam GENERAL EXAM: Alert, and fused, fairly comfortable in no apparent distress. HEAD: Normocephalic. EYES: Normal reaction of pupils, equal size. NOSE: Clear with pink turbinates. THROAT: No erythema or exudates. NECK: No masses, no JVD. New right IJ catheter placed for hemodialysis CHEST: No chest wall deformity. LUNGS: Equal air entry with crackles posterior bases. CVS: S1 and S2 normal with no audible murmur, irregular rhythm. ABDOMEN: No hepatosplenomegaly, normal bowel sounds, no guarding or rigidity. SPINE: No scoliosis or deformity SKIN: No rashes CENTRAL NERVOUS SYSTEM: No focal deficits, tone is normal in all 4 extremities. EXTREMITIES: There is no peripheral edema. No clubbing, no cyanosis. Peripheral pulses are intact. - Labs CBC & Chem 7: 07/25/17 05:03 07/25/17 05:03 Labs: Abnormal Lab Results - Last 24 Hours (Table) 07/24/17 07/24/17 07/24/17 Range/Units 12:33 16:30 20:50 RBC (4.30-5.90) m/uL Hgb (13.0-17.5) gm/dL Hct (39.0-53.0) % MCHC (31.0-37.0) g/dL RDW (11.5-15.5) % Sodium (137-145) mmol/L BUN (9-20) mg/dL Creatinine (0.66-1.25) mg/dL Glucose (74-99) mg/dL POC Glucose (mg/dL) 145 H 180 H 166 H (75-99) mg/dL Calcium (8.4-10.2) mg/dL 07/25/17 07/25/17 07/25/17 Range/Units 05:03 05:03 05:44 RBC 2.89 L (4.30-5.90) m/uL Hgb 7.7 L (13.0-17.5) gm/dL Hct 25.9 L (39.0-53.0) % MCHC 29.7 L (31.0-37.0) g/dL RDW 17.7 H (11.5-15.5) % Sodium 135 L (137-145) mmol/L BUN 27 H (9-20) mg/dL Creatinine 3.40 H (0.66-1.25) mg/dL Glucose 120 H (74-99) mg/dL POC Glucose (mg/dL) 135 H (75-99) mg/dL Calcium 8.0 L (8.4-10.2) mg/dL Assessment and Plan Assessment: Impression: #1 Acute rectal bleeding secondary to invading prostate mass. Status post 3 units of packed red blood cell infusions. Current hemoglobin 7.7. #2 Large hypermetabolic lesion of right-sided prostatic carcinoma with evidence of extra capsular extension into the rectum and into the right pelvis causing osseous distraction of medial right inferior pelvic ramus near pubic symphysis. Metastatic lesion to the liver. #3 Sepsis secondary to MRSA bacteremia. Follow-up blood cultures reveal no growth. #4 Acute on chronic renal failure, requiring recent daily hemodialysis. Current creatinine 3.40. #5 Elevated liver enzymes with metastatic liver lesion. #6 Paroxysmal atrial fibrillation. #7 Coronary artery disease. #8 Diabetes mellitus. #9 Hyperlipidemia. #10 Hypertension. #11 History of shingles. #12 [facility] resident. Plan: The patient was seen and evaluated by Dr. Barrow. The patient is currently stable from the pulmonary standpoint. The plan is for transfer to an extended care facility post discharge. The plan is for a family meeting today to decide the patient's plan of care. I, the cosigning physician, have performed a history and physical examination on the patient. Lung sounds have crackles in the bilateral posterior bases.. Maintaining good O2 saturations in the 90s on 2 L/m per nasal cannula. I have discussed the assessment and plan of care with my nurse practitioner, Karmen Seo. I attest the above documented note as dictated by her.
--- NOTE | 2017-07-25 10:52 | P.PN ---
Subjective Patient is seen in follow-up for acute kidney injury on chronic kidney disease. He is currently hemodialysis dependent and maintained on a Sunday schedule. He denies chest pain or shortness of breath. He had a new permacath placed on July 24 and is currently seen was undergoing hemodialysis. Oral intake is gradually improving. Vital signs are stable. General: The patient appeared well nourished and normally developed. HEENT: Head exam is unremarkable. Neck is without jugular venous distension. LUNGS: Lungs are clear to auscultation and percussion. Breath sounds decreased. HEART: Rate and Rhythm are regular. First and second heart sounds normal. No murmurs, rubs or gallops. ABDOMEN: Abdominal exam reveals normal bowel sounds. Non-tender and non- distended. No evidence of peritonitis. EXTREMITITES: Trace edema. Objective - Vital Signs Vital signs: Vital Signs Temp 96.6 F L 07/25/17 03:12 Pulse 65 07/25/17 03:12 Resp 18 07/25/17 03:12 BP 145/66 07/25/17 03:12 Pulse Ox 99 07/25/17 03:12 Intake & Output 07/24/17 07/25/17 07/25/17 18:59 06:59 18:59 Intake Total 560 370 120 Output Total 600 400 Balance -40 -30 120 Weight 105 kg Intake: IV 240 370 Piperacillin-Tazobactam 3 50 .375 gm In Dextrose/Water 1 50ml.bag @ 12.5 mls/hr IVPB Q12HR NUZHAT Rx#: [id number] Sodium Chloride 0.9% 1, 240 320 000 ml @ 20 mls/hr IV . Q24H NUZHAT Rx#:[id number] Oral 320 120 Output: Urine 600 400 Uretheral (Ramesh) 400 Other: Voiding Method Indwelling Catheter Indwelling Catheter # Bowel Movements 1 - Labs CBC & Chem 7: 07/25/17 05:03 07/25/17 05:03 Labs: Abnormal Lab Results - Last 24 Hours (Table) 07/24/17 07/24/17 07/24/17 Range/Units 12:33 16:30 20:50 RBC (4.30-5.90) m/uL Hgb (13.0-17.5) gm/dL Hct (39.0-53.0) % MCHC (31.0-37.0) g/dL RDW (11.5-15.5) % Sodium (137-145) mmol/L BUN (9-20) mg/dL Creatinine (0.66-1.25) mg/dL Glucose (74-99) mg/dL POC Glucose (mg/dL) 145 H 180 H 166 H (75-99) mg/dL Calcium (8.4-10.2) mg/dL 07/25/17 07/25/17 07/25/17 Range/Units 05:03 05:03 05:44 RBC 2.89 L (4.30-5.90) m/uL Hgb 7.7 L (13.0-17.5) gm/dL Hct 25.9 L (39.0-53.0) % MCHC 29.7 L (31.0-37.0) g/dL RDW 17.7 H (11.5-15.5) % Sodium 135 L (137-145) mmol/L BUN 27 H (9-20) mg/dL Creatinine 3.40 H (0.66-1.25) mg/dL Glucose 120 H (74-99) mg/dL POC Glucose (mg/dL) 135 H (75-99) mg/dL Calcium 8.0 L (8.4-10.2) mg/dL Assessment and Plan Plan: Assessment: #1. Acute kidney injury on chronic kidney disease now hemodialysis dependent. 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 He is maintained on hemodialysis on a Sunday schedule. #2. Volume overload. Improved with ultrafiltration. #3. Anemia of chronic kidney disease maintained on Aranesp. #4. Metabolic acidosis secondary to acute kidney injury. Improved with dialysis. #5. MRSA bacteremia with question of endocarditis. Maintained on antibiotics per infectious disease recommendations. #6. Hypotension maintained on midodrine. #7. 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 Plan: Currently seen while undergoing hemodialysis; next treatment on Sunday. Midodrine 10 mg prior to dialysis. Prognosis guarded. Encouraged oral intake. manager data warehousing to help facilitate outpatient HD.
[2017-07-25] MEDS: PANTOPRAZOLE 40 MG/10 ML VIAL IV SCH (11:54)
[2017-07-25] MEDS: PARoxetine 20 MG TAB PO SCH (11:59)
[2017-07-25] MEDS: METOPROLOL TARTRATE 25 MG TAB PO SCH ×2 (11:59→21:00)
[2017-07-25] MEDS: BICALUTAMIDE 50 MG TAB PO SCH ×2 (11:59→21:00)
[2017-07-25] MEDS: AMIODARONE 200 MG TAB PO SCH (11:59)
[2017-07-25 12:04] LABS: Glucose,Whole Blood 104 mg/dL (75-99)
[2017-07-25] MEDS: POTASSIUM CHLORIDE ORAL LIQUID 40 MEQ/30 ML CUP PO SCH (12:06)
[2017-07-25] MEDS: MEGESTROL 400 MG/10 ML CUP PO SCH (12:06)
[2017-07-25] MEDS: CHOLESTYRAMINE (WITH SUGAR) 4 GM PACKET PO SCH ×2 (12:06→18:07)
--- NOTE | 2017-07-25 13:58 | P.PN ---
Subjective Progress Note Date: 07/25/17 Principal diagnosis: Paroxysmal atrial fibrillation This is an 81-year-old gentleman follows with Dr. VC Carrion in the office as an outpatient. He has a past medical history significant for paroxysmal atrial fibrillation, prostate cancer, and initially admitted to the fourth floor and was transferred to the intensive care unit because of rectal bleeding. He is currently being followed on the telemetry unit. Patient is quite confused this morning, there is a sitter at the bedside. He is remaining in a normal sinus rhythm. Denies any chest pain, breathing is stable. 07 25 2017 Patient seen and examined this morning, undergoing dialysis. Complaining of back discomfort. Hemodynamically stable and remaining in normal sinus rhythm. Objective - Vital Signs Vital signs: Vital Signs Temp 96.9 F L 07/25/17 08:00 Pulse 68 07/25/17 12:32 Resp 16 07/25/17 12:00 BP 109/67 07/25/17 12:00 Pulse Ox 99 07/25/17 03:12 Intake & Output 07/24/17 07/25/17 07/25/17 18:59 06:59 18:59 Intake Total 560 370 970 Output Total 600 400 2 Balance -40 -30 968 Weight 105 kg Intake: IV 240 370 650 Piperacillin-Tazobactam 3 50 50 .375 gm In Dextrose/Water 1 50ml.bag @ 12.5 mls/hr IVPB Q12HR NUZHAT Rx#: [id number] Sodium Chloride 0.9% 1, 240 320 600 000 ml @ 20 mls/hr IV . Q24H NUZHAT Rx#:[id number] Oral 320 320 Output: Urine 600 400 Uretheral (Ramesh) 400 Stool 2 Other: Voiding Method Indwelling Catheter Indwelling Catheter Indwelling Catheter # Bowel Movements 1 0 - Exam PHYSICAL EXAMINATION: HEENT: Head is atraumatic, normocephalic. Pupils equal, round. Neck is supple. There is no elevated jugular venous pressure. HEART EXAMINATION: Heart S1 and S2 systolic murmur is heard CHEST EXAMINATION: Lungs are clear to auscultation and precussion. No chest wall tenderness is noted on palpation or with deep breathing. ABDOMEN: Soft, nontender. Bowel sounds are heard. No organomegaly noted. EXTREMITIES: 2+ peripheral pulses with trace evidence of peripheral edema and no calf tenderness noted. NEUROLOGIC [patient is confused - Labs CBC & Chem 7: 07/25/17 05:03 07/25/17 05:03 Labs: Abnormal Lab Results - Last 24 Hours (Table) 07/24/17 07/24/17 07/25/17 Range/Units 16:30 20:50 05:03 RBC (4.30-5.90) m/uL Hgb (13.0-17.5) gm/dL Hct (39.0-53.0) % MCHC (31.0-37.0) g/dL RDW (11.5-15.5) % Sodium 135 L (137-145) mmol/L BUN 27 H (9-20) mg/dL Creatinine 3.40 H (0.66-1.25) mg/dL Glucose 120 H (74-99) mg/dL POC Glucose (mg/dL) 180 H 166 H (75-99) mg/dL Calcium 8.0 L (8.4-10.2) mg/dL 07/25/17 07/25/17 07/25/17 Range/Units 05:03 05:44 11:42 RBC 2.89 L (4.30-5.90) m/uL Hgb 7.7 L (13.0-17.5) gm/dL Hct 25.9 L (39.0-53.0) % MCHC 29.7 L (31.0-37.0) g/dL RDW 17.7 H (11.5-15.5) % Sodium (137-145) mmol/L BUN (9-20) mg/dL Creatinine (0.66-1.25) mg/dL Glucose (74-99) mg/dL POC Glucose (mg/dL) 135 H 104 H (75-99) mg/dL Calcium (8.4-10.2) mg/dL Assessment and Plan Plan: Assessment and plan #1 paroxysmal atrial fibrillation, remaining in normal sinus rhythm. #2 renal failure, on hemodialysis #3 prostate cancer #4 pneumonia # 5 GI bleed Plan Cardiology's perspective, we will continue current medications. We'll follow this patient with you now on an as-needed basis only, please don't hesitate to call with any questions. DNP note has been reviewed, I agree with a documented findings and plan of care. Patient was seen and examined.
--- NOTE | 2017-07-25 14:48 | P.PN ---
Progress Note - Text Progress Note Date: 07/25/17 DATE OF SERVICE: 07/25/2017 PRESENTING COMPLAINT: Shortness of breath HISTORY OF PRESENT ILLNESS: 81-year-old male resident of [facility] on the [place] with multiple medical problems who presented with fever and generalized weakness, admitted to the regular medical floor with a suspected UTI infection and sepsis.Patient developed bright red blood per rectum and his systolic blood pressure dropped into the 70s and 80s. Hemoglobin was 7.0. Transferred to the ICU. Received 2 units of packed red cells. Elevated kidney function requiring placement of a temporary hemodialysis catheter and hemodialysis has been initiated by nephrology. Became increasingly more short of breath requiring BiPAP support. Has received multiple doses of Lasix, continues to be on and off the BiPAP, Cardizem drip initiated to help control heart rate, Lasix drip initiated to help diurese the patient, receives Levophed for blood pressure support. Has MRSA bacteremia concerns for possible endocarditis however patient is unable to lie flat for CHASITY. Has metastatic prostate cancer with involvement of the rectum causing a GI bleed. INTERVAL HISTORY: 07/25/2017: Lying in bed receiving dialysis, quite restless. Removal goal of 3 L. Yesterday afternoon patient became increasingly more confused and pulled out his chest wall dialysis port. Dr. Escobedo replaced the port late yesterday afternoon. Overnight he was very restless confused requiring a sitter at the bedside. Sitter remains, He opens his eyes to his name, remains confused. Afebrile, blood pressure bit on the low side, reading is somewhat labored. Antibiotics continued for presumptive MRSA. Appetite is poor continues only to drink shakes. Hemoglobin stable. 07/24/2017: Lying in bed quite restless, able to answer simple straightforward questions has bit of confusion. Afebrile, blood pressure stable, breathing unlabored, continues antibiotics for presumptive MRSA. Continues only to have shakes, appetite is poor, hemoglobin stable. 07/23/2017: Lying in bed appears comfortable, currently receiving hemodialysis, afebrile, blood pressure stable, breathing is unlabored, antibiotic continue per ID for presumptive MRSA. Appetite is poor only ate about 20% of his breakfast no shake this morning. Hemoglobin stable at 7.7. 07/22/2017: Patient lying in bed appears comfortable, afebrile, blood pressure stable. Continues to be off Levophed, breathing is normal, antibiotics continue per for presumptive MRSA. Next hemodialysis scheduled for Sunday. Eating better ate about 20% of his breakfast, continues to drink protein shakes included with breakfast. Hemoglobin remained stable at 7.6. BUN and creatinine remain elevated, nephrology was discontinued Lasix for now. Mood is somewhat improved seemingly less frustrated. 07/21/2017: Patient sitting up in his bed, is somewhat restless, afebrile, blood pressure stable, has been off Levophed the last 24 hours breathing is normal, antibiotics continue per for presumptive MRSA. Next hemodialysis is scheduled for Sunday. Informed by nursing patient is requesting a sleeping pill during the day is restless and depressed about being in the hospital. Hemoglobin stable at 7.5,, ate about 20% of his breakfast, continues to drink the shakes, last BM 07/17/2017: 07/20/2017: Sitting up in the bed, receiving dialysis. Received his new dialysis catheter yesterday. Afebrile, blood pressure is stable, Levophed is off continues on antibiotic therapy for presumptive MRSA. Hemoglobin low this morning receive 1 unit of packed red cells. Appetite remains poor, only intake is the shakes that he received with his meals. Megace was added yesterday. Plans to transfer the patient to [address] [place] [address] possibly later today. 07/19/2017: Sitting up in the bed in chair mode, will receive dialysis later today. Temp right groin catheter. Patient does need a new dialysis catheter placed and patient is agreeable arrangement is being made for this to be done today. Remains on Levophed, 4 g, as well as upper lobe pneumonia assumptive MRSA pneumonia. Nutrition services increased supplements due to patient's poor appetite. Nephrology added Megace. 07/18/2017: Lying in bed,status post dialysis catheter placement, previous catheter was clogged attempts made to declog it and were unsuccessful, receiving dialysis. Remains on 3 L nasal cannula, afebrile, remains in sinus rhythm rate in the low 100s,Ramesh catheter needed to be changed and was performed by urology this morning, antibiotic therapy continues for MRSA septicemia, continues to have hypotension requiring the use of pressors, Lasix drip was discontinued, appetite is poor eating very little of his meals but drinking his ensure shakes. 07/17/2017: Patient lying in bed leaning over to the left side of the bed tired appearing complains of pain. Remains on 3 L nasal cannula, afebrile, converted to sinus rhythm yesterday, heart rate remains under control, antibiotic therapy continues for MRSA septicemia hemodialysis scheduled for today as they were unsuccessful yesterday and taking off the full amount. Today's session they had much difficulty with the catheter, TPA placed in the catheter and an attempt will be made to try and dialyze the patient tomorrow if unsuccessful consideration needs to be given to placement of a new dialysis catheter. Levophed continues at 4 g, Lasix drip at 10 mL, appetite is poor is only drinking his ensure shakes. 07/16/2017: Patient lying in bed and is tired appearing, having increasing complaints of pain. Remains on 3 L nasal cannula, afebrile,remains tachycardic, antibiotic therapy continues for MRSA septicemia, hemodialysis later today. Levophed continues at 6 g, insulin drip discontinued, Lasix drip at 10 ml. Appetite poor primarily drinks his ensure shakes. Antibiotics continue in the form of Zosyn and vancomycin. 07/15/2017: Patient lying in bed appears tired today complaining to his left side, remains on 3 L nasal cannula, afebrile, antibiotic therapy continues for MRSA septicemia. Next hemodialysis will be performed on Sunday. Continues to be tachycardic is on and off the Levophed at 5 g an hour for blood pressure support, Lasix drip continues at 10 mg an hour, renal function remains impaired but does have good urine output. Poor appetite, takes primarily his ensure shakes. Antibiotic therapy in the form of Zosyn and vancomycin. Last BM 201707/14/2017: Patient lying in bed, breathing easier. Remains on 3 L nasal cannula, afebrile , antibiotic therapy continues for MRSA septicemia. Hemodialysis done today with 3.5 L removed, patient did become more tachycardic during the procedure. His baseline rate is about 120 beats a minute irregular, blood pressure is in the 110s, Levophed infusion at 2 mics a minute, Lasix drip continues at 10 mg an hour, renal function continues to be impaired. Appetite is poor, does drink his ensure. 07/13/2017: Patient lying in bed receiving hemodialysis, breathing is somewhat easier, heart rate remains elevated. Had an episode of chest discomfort and received Dilaudid which relieved his pain. Pain was located on the right side of the chest and reproducible with palpation. Remains on 5 L nasal cannula did not require any BiPAP support overnight. Hemodialysis was successful removing 3 L of fluid yesterday patient is scheduled for another round of hemodialysis today. Lasix drip continues at 10 mg an hour, remains in atrial fibrillation amiodarone drip at 0.5 mg a minute, norepinephrine was on and off throughout the night. Currently at 4 g. Follow-up blood cultures negative for growth. Remains on daptomycin and ciprofloxacin. REVIEW OF SYSTEMS: Done for constitutional ,cardiovascular, GI, pulmonary with relevant findings as above. CURRENT MEDICATIONS Tylenol, [place], DuoNeb, amiodarone, Casodex, Questran, Aranesp, docusate sodium , Dilaudid, Imodium, Ativan, Megace, melatonin, Lopressor, midodrine, vancomycin , Zofran, Protonix, Paxil, Zosyn, potassium chloride. PHYSICAL EXAM VITAL SIGNS: Temperature 96.6, pulse 65, respiratory rate 18, blood pressure 145/66, oxygen saturation 99% on 2 L GENERAL APPEARANCE: Lying in bed, tired appearing, somewhat restless HENT: Normocephalic oral cavity normal, external appearance of the nose and ears normal, NECK: JVD not raised. Mass not palpable EYES: Pupils equal. Conjunctiva normal RESPIRATORY: Respiratory effort increased. Diminished bilaterally basilar crackles. CARDIOVASCULAR: First and second sounds normal. Mild edema. ABDOMEN: Soft. Liver and spleen not palpable. No tenderness. No mass palpable. PSYCHIATRY: Alert to name , really not answering questions much Mood and affect somewhat anxious restless . INTEGUMENT: Right IJ dialysis catheter placemen right chest wall , right upper arm PICC line . INVESTIGATIONS: LABS: Hemoglobin 7.7, sodium 135, BUN 27, creatinine 3.40. Blood cultures: 07/02/2017: MRSA Urine culture: 07/02/2017: Pseudomonas aeruginosa Blood culture: 07/04/2017 repeat: Methicillin-resistant staph aureus Blood culture 07/04,,: Negative for any growth after 144 hours Sputum culture: 07/14/2017: Destiny glabrata Blood culture: 07/14/2017: Negative for any growth after 144 hours. ASSESSMENT: -Methicillin-resistant Staphylococcus aeruginosa bacteremia with suspicion for underlying endocarditis, slow to respond -Acute delirium/metabolic encephalopathy likely due to acute on chronic kidney disease -Possible staphylococcal lung infection/MRSA pneumonia secondary to chest x-ray findings to the upper lobe apices, slow to respond -Volume overload, multifactorial, slow to respond -Anemia, multifactorial, including that of chronic kidney disease and some blood loss, 6.4 today, received 1 unit of packed cells -Metabolic acidosis from acute kidney injury, improved with dialysis -Acute kidney injury from acute tubular necrosis, including hypertension. -Chronic kidney disease, prostate leak from nephrosclerosis. -Hypotensive shock. possibly cardiogenic Levophed off. -Persistent atrial fibrilation controlled currently sinus rhythm on by mouth amiodarone. -Metastatic prostate cancer with involvement of the bone including the inferior pubic rami, liver on PET scan, and the rectum causing rectal bleeding. The patient is getting palliative radiation treatment and Casodex. -Acute blood loss anemia multifactorial having received 1 units packed red blood cells. -Diabetes mellitus type 2 on insulin drip -Hypertension, history of. -Hyperlipidemia. -Acute congestive heart failure from systolic dysfunction ejection fraction 30- 35% could be arrhythmia reduced, slow to respond -Acute hypoxic respiratory failure status post ventilator support, patient currently on 3 L of oxygen, slow to respond -Acute renal failure, likely acute tubular necrosis, now requiring hemodialysis , slow to respond -Acute urinary tract infection with Pseudomonas, status post antibiotic, resolved -CODE STATUS: No code PLAN: Dialysis to continue on a Sunday schedule. Antibiotic therapy continues in the form of vancomycin finishes 6 week course of therapy as per infectious disease. Some discussion has taken place regarding CHASITY and given the state of the patients current condition and concerns regarding the possibility of patient ending up on the ventilator,test is on hold for the time being. Repeat echocardiogram done, cardiology does not feel at this time there is any evidence of endocarditis has concerns regarding performing a CHASITY. Family meeting to occur on July 26 with the son daughter and regarding overall prognosis and treatment plan. Prognosis continues to be quite poor particularly with multiple comorbidities and metastatic prostate cancer. Plan of care discussed at the bedside we will follow closely. SEWING PATTERN LAYOUT TECHNICIAN statement: Patient was seen and examined by nurse practitioner Beth Hammond and all elements of the case discussed with attending Dr. Ortiz
--- NOTE | 2017-07-25 16:01 | PN ---
PROGRESS NOTE DATE OF SERVICE: 07/25/2017 REASON FOR FOLLOWUP: MRSA bacteremia, likely endocarditis and pneumonia. INTERVAL HISTORY: The patient is afebrile, and slightly hypothermic, clinically has a heating blanket. Hemodynamically stable. Not on any pressor support. Feeling weak and tired; no energy. No chest pain. Minimal cough. No abdominal pain. No diarrhea. PHYSICAL EXAMINATION: Blood pressure 109/67 with a pulse of 80, temperature of 96.9. He is a 96% on 3 L nasal cannula. General description is an elderly male lying in bed in no distress. RESPIRATORY SYSTEM: Unlabored breathing with decreased breath sounds in the bases. No wheeze. HEART: S1, S2. Regular rate and rhythm. ABDOMEN: Soft. No tenderness. LABS: Hemoglobin 7.7, white count 7.3 with a BUN of 27, creatinine 3.40. Blood culture repeat has been negative so far. DIAGNOSTIC IMPRESSION AND PLAN: Patient with a methicillin-resistant Staphylococcus aeruginosa bacteremia with concern for likely mitral valve endocarditis and a component of pneumonia. Repeat blood culture has been negative. He is currently on vancomycin, Pharmacy to dose, which he will continue through the dialysis for another 4 weeks with close outpatient followup. Continue with supportive care. MMODL / IJN: [id number] /
[2017-07-25 17:12] LABS: Glucose,Whole Blood 117 mg/dL (75-99)
[2017-07-25] MEDS: DARBEPOETIN ALFA 40 MCG/0.4 ML SYRINGE SQ SCH (17:51)
[2017-07-25 20:27] LABS: Glucose,Whole Blood 135 mg/dL (75-99)
[2017-07-26] MEDS: LORazepam 2 MG/ML INJ IV PRN ×4 (02:10→22:40)
[2017-07-26 02:51] LABS: Glucose,Whole Blood 119 mg/dL (75-99)
[2017-07-26] MEDS: HYDROmorphone 0.5 MG/0.5 ML SYRINGE IVP PRN ×5 (02:58→22:40)
[2017-07-26] MEDS: MELATONIN 3 MG TABLET PO PRN (02:59)
--- NOTE | 2017-07-26 05:04 | PN ---
PROGRESS NOTE DATE OF SERVICE: 07/25/2017 ATTENDING NOTE: Patient seen and examined by me. I discussed with nurse practitioner, Ms Hammond. The patient remains to be a bit delirious, not eating much. Has a sitter. LUNGS: Decreased breath sounds. Edema is gone down. Getting dialyzed today. ASSESSMENT: 1. Multiple medical problems. 2. Acute delirium with metabolic encephalopathy, multifactorial. Arrange for a family meeting tomorrow. I think patient may be a fair candidate for hospice. Also discussed with Dr. Barrow. He agrees with the same. It would not be fair to put the patient through more given that he is delirious, dialysis, metastatic prostate cancer and multiple other problems and barely eating. MMODL / IJN: [id number] /
[2017-07-26 05:31] LABS: Anisocytosis Slight; Basophils % (A) 0 %; Eosinophils # (A) 0.5 k/uL (0-0.7); Eosinophils % (A) 7 %; HCT 25.7 % (39.0-53.0); HGB 7.8 gm/dL (13.0-17.5); Hypochromasia Marked; Lymphocytes # (A) 0.9 k/uL (1.0-4.8); Lymphocytes % (A) 14 %; MCH 26.3 pg (25.0-35.0); MCHC 30.2 g/dL (31.0-37.0); Mean Platelet Volume 7.2; Monocytes # (A) 0.3 k/uL (0-1.0); Monocytes % (A) 5 %; Neutrophils # (A) 4.5 k/uL (1.3-7.7); Neutrophils % (A) 72 %; Platelet Count 218 k/uL (150-450); Poikilocytosis Slight; RBC 2.95 m/uL (4.30-5.90); RDW 18.8 % (11.5-15.5); WBC 6.3 k/uL (3.8-10.6)
[2017-07-26 05:59] LABS: Glucose,Whole Blood 117 mg/dL (75-99)
[2017-07-26] MEDS: MIDODRINE 5 MG TAB PO SCH ×3 (06:07→16:51)
[2017-07-26] MEDS: INSULIN ASPART 100 UNIT/ML 1 ML 10 ML VIAL SQ SCH ×4 (06:07→22:04)
[2017-07-26] MEDS: CHOLESTYRAMINE (WITH SUGAR) 4 GM PACKET PO SCH ×2 (08:07→16:51)
[2017-07-26] MEDS: PANTOPRAZOLE 40 MG/10 ML VIAL IV SCH (08:19)
[2017-07-26] MEDS: POTASSIUM CHLORIDE ORAL LIQUID 40 MEQ/30 ML CUP PO SCH (08:21)
[2017-07-26] MEDS: PARoxetine 20 MG TAB PO SCH (08:21)
[2017-07-26] MEDS: METOPROLOL TARTRATE 25 MG TAB PO SCH ×2 (08:21→22:05)
[2017-07-26] MEDS: BICALUTAMIDE 50 MG TAB PO SCH ×2 (08:21→22:04)
[2017-07-26] MEDS: AMIODARONE 200 MG TAB PO SCH (08:21)
[2017-07-26] MEDS: MEGESTROL 400 MG/10 ML CUP PO SCH (08:22)
[2017-07-26] MEDS: PIPERACILLIN-TAZOBACTAM 3.375 GM in DEXTROSE/WATER 1 50ML.BAG IVPB SCH ×2 (08:22→19:35)
--- NOTE | 2017-07-26 09:33 | P.PN ---
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 This is a pleasant 81-year-old gentleman who resides at an extended care facility who has a history of coronary artery disease, paroxysmal atrial fibrillation, diabetes mellitus, hyperlipidemia, hypertension, shingles, MRSA infection in the blood and urine. 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 A recent PET scan revealed large hypermetabolic lesion presumed right-sided prostatic carcinoma there is also evidence of extra Chiller extension into the rectum and into the right pelvis causing osseous destruction of medial right MP a pelvic ramus near pubic symphysis. There is metastatic lesion to the liver as well. Patient was readmitted yesterday with fever and generalized weakness. Gentleman admitted to the regular medical floor with suspected urinary tract infection and sepsis. Last evening he developed bright red bleeding from the rectum approximately 50 MLS. He did have a drop in his systolic blood pressure into the 70s and 80s. His hemoglobin was 7.0. He was transferred here to the intensive care unit. He did not require any pressors. Did receive 2 units of packed red blood cells in his current hemoglobin is 8.6. White count 11.7. Creatinine 3.10. AST 158, ALT 106 Blood cultures are revealing presumptive MRSA. His chest x-ray shows mild fluid volume overload with small effusions. He is maintaining O2 saturations in the upper 90s on 2 L/m per nasal cannula. Progress note dated 07/23/2017 This is a patient who was admitted about 21 days ago. 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 The patient's tumor spread into the rectum which initially caused him to be admitted for a GI bleed. In addition, the patient has a history of MRSA bacteremia and sepsis acute rectal bleeding acute on chronic renal failure hypoxia make respiratory failure with with extensive upper lobe consolidation chronic atrial fibrillation coronary artery disease diabetes mellitus hyperlipidemia hypertension congestive heart failure lower extremity edema with anasarca chronic anemia general medical debility shingles and urinary tract infection secondary to pseudomonas aeruginosa. Overall, the patient's not a very good shape. He is a no code. The patient is being considered for discharge to a nursing facility or rehab facility. Today the patient's very sleepy and lethargic. No particular complaints today Progress note dated 07/24/2017 The patient is seen again today in follow-up on the selective care unit. He is currently resting quite comfortably in bed. He is maintaining good O2 saturations in the upper 90s on 3 L/m per nasal cannula. He's been afebrile. Hemodynamically stable. His current hemoglobin is 7.9. He is status post 3 units of packed red blood cells since admission. He had developed a MRSA bacteremia. Sputum was positive for Destiny glabrata. Follow-up blood cultures have revealed no growth. He remains on vancomycin and Zosyn. No leukocytosis. Creatinine 3.00. Progress note dated 07/25/2017 The patient is seen again today in follow-up on the selective care unit. He is awake and alert. He is restless. The patient removed his hemodialysis catheter last evening. A new 28 cm dialysis catheter was inserted into the right internal jugular vein this morning by vascular services. He is currently receiving hemodialysis. A sitter is at the bedside. White count 7.6, hemoglobin 7.7, creatinine 3.40. He is maintaining good O2 saturations in the high 90s on 2 L/m per nasal cannula. Hemodynamically stable. The plan is for a family meeting today regarding the patient's increased confusion and very poor appetite. He may be a hospice candidate. Progress note dated 07/26/2017 The patient is seen again today in follow-up on the selective care unit. He is resting quite comfortably in bed currently. He has remained restless and attempting to climb out of bed. He did receive Dilaudid and Ativan this morning. A sitter is at the bedside. No leukocytosis. Current white count 7.8. Creatinine 2.40. He is on Zosyn and vancomycin. Maintaining good O2 saturations in the mid 90s on room air now. He is afebrile. Hemodynamically stable. Objective - Vital Signs Vital signs: Vital Signs Temp 96.6 F L 07/26/17 08:00 Pulse 69 07/26/17 08:00 Resp 18 07/26/17 08:00 BP 147/60 07/26/17 08:00 Pulse Ox 95 07/26/17 08:00 Intake & Output 07/25/17 07/26/17 07/26/17 18:59 06:59 18:59 Intake Total 970 420 Output Total 203 100 Balance 767 320 Weight 100.5 kg Intake: IV 650 420 Piperacillin-Tazobactam 3 50 100 .375 gm In Dextrose/Water 1 50ml.bag @ 12.5 mls/hr IVPB Q12HR [facility] Rx#: [id number] Sodium Chloride 0.9% 1, 600 320 000 ml @ 20 mls/hr IV . Q24H [facility] Rx#:[id number] Oral 320 Output: Urine 200 100 Stool 3 Other: Voiding Method Indwelling Catheter Indwelling Catheter Indwelling Catheter # Bowel Movements 1 - Exam GENERAL EXAM: Alert, confused, fairly comfortable in no apparent distress. HEAD: Normocephalic. EYES: Normal reaction of pupils, equal size. NOSE: Clear with pink turbinates. THROAT: No erythema or exudates. NECK: No masses, no JVD. New right catheter placed for hemodialysis CHEST: No chest wall deformity. LUNGS: Equal air entry with crackles posterior bases. CVS: S1 and S2 normal with no audible murmur, irregular rhythm. ABDOMEN: No hepatosplenomegaly, normal bowel sounds, no guarding or rigidity. SPINE: No scoliosis or deformity SKIN: No rashes CENTRAL NERVOUS SYSTEM: No focal deficits, tone is normal in all 4 extremities. EXTREMITIES: Right upper extremity PICC line in place. There is no peripheral edema. No clubbing, no cyanosis. Peripheral pulses are intact. - Labs CBC & Chem 7: 07/26/17 05:07 07/26/17 05:07 Labs: Abnormal Lab Results - Last 24 Hours (Table) 07/25/17 07/25/17 07/25/17 Range/Units 11:42 16:45 20:22 RBC (4.30-5.90) m/uL Hgb (13.0-17.5) gm/dL Hct (39.0-53.0) % MCHC (31.0-37.0) g/dL RDW (11.5-15.5) % Lymphocytes # (1.0-4.8) k/uL Creatinine (0.66-1.25) mg/dL Glucose (74-99) mg/dL POC Glucose (mg/dL) 104 H 117 H 135 H (75-99) mg/dL Calcium (8.4-10.2) mg/dL 07/26/17 07/26/17 07/26/17 Range/Units 02:49 05:07 05:07 RBC 2.95 L (4.30-5.90) m/uL Hgb 7.8 L (13.0-17.5) gm/dL Hct 25.7 L (39.0-53.0) % MCHC 30.2 L (31.0-37.0) g/dL RDW 18.8 H (11.5-15.5) % Lymphocytes # 0.9 L (1.0-4.8) k/uL Creatinine 2.40 H (0.66-1.25) mg/dL Glucose 117 H (74-99) mg/dL POC Glucose (mg/dL) 119 H (75-99) mg/dL Calcium 8.0 L (8.4-10.2) mg/dL 07/26/17 Range/Units 05:55 RBC (4.30-5.90) m/uL Hgb (13.0-17.5) gm/dL Hct (39.0-53.0) % MCHC (31.0-37.0) g/dL RDW (11.5-15.5) % Lymphocytes # (1.0-4.8) k/uL Creatinine (0.66-1.25) mg/dL Glucose (74-99) mg/dL POC Glucose (mg/dL) 117 H (75-99) mg/dL Calcium (8.4-10.2) mg/dL Assessment and Plan Assessment: Impression: #1 Acute rectal bleeding secondary to invading prostate mass. Status post 3 units of packed red blood cell infusions. Current hemoglobin 7.8. #2 Large hypermetabolic lesion of right-sided prostatic carcinoma with evidence of extra capsular extension into the rectum and into the right pelvis causing osseous distraction of medial right inferior pelvic ramus near pubic symphysis. Metastatic lesion to the liver. #3 Sepsis secondary to MRSA bacteremia. Follow-up blood cultures reveal no growth. #4 Acute on chronic renal failure, requiring recent daily hemodialysis. Current creatinine 2.40. #5 Elevated liver enzymes with metastatic liver lesion. #6 Paroxysmal atrial fibrillation. #7 Coronary artery disease. #8 Diabetes mellitus. #9 Hyperlipidemia. #10 Hypertension. #11 History of shingles. #12 shelter resident. Plan: The patient was seen and evaluated by Dr. Barrow. The patient is currently stable from the pulmonary standpoint. The plan is for transfer to an extended care facility post discharge. The plan is for a family meeting today to decide the patient's plan of care. We'll continue with his current medications for now. I, the cosigning physician, have performed a history and physical examination on the patient. Lung sounds have crackles in the bilateral posterior bases.. Maintaining good O2 saturations in the 90s on room air. I have discussed the assessment and plan of care with my nurse practitioner, Karmen Seo. I attest the above documented note as dictated by her.
[2017-07-26] MEDS: IPRATROPIUM-ALBUTEROL 3 ML NEB INHALATION SCH ×4 (10:06→21:00)
[2017-07-26 12:12] LABS: Glucose,Whole Blood 137 mg/dL (75-99)
--- NOTE | 2017-07-26 16:29 | P.PN ---
Progress Note - Text Progress Note Date: 07/26/17 DATE OF SERVICE: 07/26/2017 PRESENTING COMPLAINT: Shortness of breath HISTORY OF PRESENT ILLNESS: 81-year-old male resident of [facility] on the [place] with multiple medical problems who presented with fever and generalized weakness, admitted to the regular medical floor with a suspected UTI infection and sepsis.Patient developed bright red blood per rectum and his systolic blood pressure dropped into the 70s and 80s. Hemoglobin was 7.0. Transferred to the ICU. Received 2 units of packed red cells. Elevated kidney function requiring placement of a temporary hemodialysis catheter and hemodialysis has been initiated by nephrology. Became increasingly more short of breath requiring BiPAP support. Has received multiple doses of Lasix, continues to be on and off the BiPAP, Cardizem drip initiated to help control heart rate, Lasix drip initiated to help diurese the patient, receives Levophed for blood pressure support. Has MRSA bacteremia concerns for possible endocarditis however patient is unable to lie flat for CHASITY. Has metastatic prostate cancer with involvement of the rectum causing a GI bleed. INTERVAL HISTORY: 07/26/2017: Lying in bed, quite restless, sitter at the bedside. Hemodialysis occurs Sunday. Overnight patient continued to be restless requiring a sitter, opens his eyes to his name, somewhat confused answers to his name. Afebrile, vital signs stable. Breathing is somewhat labored. Antibiotics continue for presumptive MRSA. Appetite is poor today not even drinking his shakes. Hemoglobin stable. Family meeting to occur today at 4 PM with daughter son and regarding prognosis and possibility of instituting hospice care. 07/25/2017: Lying in bed receiving dialysis, quite restless. Removal goal of 3 L. Yesterday afternoon patient became increasingly more confused and pulled out his chest wall dialysis port. Dr. Escobedo replaced the port late yesterday afternoon. Overnight he was very restless confused requiring a sitter at the bedside. Sitter remains, He opens his eyes to his name, remains confused. Afebrile, blood pressure bit on the low side, breathing is somewhat labored. Antibiotics continued for presumptive MRSA. Appetite is poor continues only to drink shakes. Hemoglobin stable. 07/24/2017: Lying in bed quite restless, able to answer simple straightforward questions has bit of confusion. Afebrile, blood pressure stable, breathing unlabored, continues antibiotics for presumptive MRSA. Continues only to have shakes, appetite is poor, hemoglobin stable. 07/23/2017: Lying in bed appears comfortable, currently receiving hemodialysis, afebrile, blood pressure stable, breathing is unlabored, antibiotic continue per ID for presumptive MRSA. Appetite is poor only ate about 20% of his breakfast no shake this morning. Hemoglobin stable at 7.7. 07/22/2017: Patient lying in bed appears comfortable, afebrile, blood pressure stable. Continues to be off Levophed, breathing is normal, antibiotics continue per for presumptive MRSA. Next hemodialysis scheduled for Sunday. Eating better ate about 20% of his breakfast, continues to drink protein shakes included with breakfast. Hemoglobin remained stable at 7.6. BUN and creatinine remain elevated, nephrology was discontinued Lasix for now. Mood is somewhat improved seemingly less frustrated. 07/21/2017: Patient sitting up in his bed, is somewhat restless, afebrile, blood pressure stable, has been off Levophed the last 24 hours breathing is normal, antibiotics continue per for presumptive MRSA. Next hemodialysis is scheduled for Sunday. Informed by nursing patient is requesting a sleeping pill during the day is restless and depressed about being in the hospital. Hemoglobin stable at 7.5,, ate about 20% of his breakfast, continues to drink the shakes, last BM 07/17/2017: 07/20/2017: Sitting up in the bed, receiving dialysis. Received his new dialysis catheter yesterday. Afebrile, blood pressure is stable, Levophed is off continues on antibiotic therapy for presumptive MRSA. Hemoglobin low this morning receive 1 unit of packed red cells. Appetite remains poor, only intake is the shakes that he received with his meals. Megace was added yesterday. Plans to transfer the patient to [address] [place] [address] possibly later today. 07/19/2017: Sitting up in the bed in chair mode, will receive dialysis later today. Temp right groin catheter. Patient does need a new dialysis catheter placed and patient is agreeable arrangement is being made for this to be done today. Remains on Levophed, 4 g, as well as upper lobe pneumonia assumptive MRSA pneumonia. Nutrition services increased supplements due to patient's poor appetite. Nephrology added Megace. 07/18/2017: Lying in bed,status post dialysis catheter placement, previous catheter was clogged attempts made to declog it and were unsuccessful, receiving dialysis. Remains on 3 L nasal cannula, afebrile, remains in sinus rhythm rate in the low 100s,Ramesh catheter needed to be changed and was performed by urology this morning, antibiotic therapy continues for MRSA septicemia, continues to have hypotension requiring the use of pressors, Lasix drip was discontinued, appetite is poor eating very little of his meals but drinking his ensure shakes. 07/17/2017: Patient lying in bed leaning over to the left side of the bed tired appearing complains of pain. Remains on 3 L nasal cannula, afebrile, converted to sinus rhythm yesterday, heart rate remains under control, antibiotic therapy continues for MRSA septicemia hemodialysis scheduled for today as they were unsuccessful yesterday and taking off the full amount. Today's session they had much difficulty with the catheter, TPA placed in the catheter and an attempt will be made to try and dialyze the patient tomorrow if unsuccessful consideration needs to be given to placement of a new dialysis catheter. Levophed continues at 4 g, Lasix drip at 10 mL, appetite is poor is only drinking his ensure shakes. 07/16/2017: Patient lying in bed and is tired appearing, having increasing complaints of pain. Remains on 3 L nasal cannula, afebrile,remains tachycardic, antibiotic therapy continues for MRSA septicemia, hemodialysis later today. Levophed continues at 6 g, insulin drip discontinued, Lasix drip at 10 ml. Appetite poor primarily drinks his ensure shakes. Antibiotics continue in the form of Zosyn and vancomycin. 07/15/2017: Patient lying in bed appears tired today complaining to his left side, remains on 3 L nasal cannula, afebrile, antibiotic therapy continues for MRSA septicemia. Next hemodialysis will be performed on Sunday. Continues to be tachycardic is on and off the Levophed at 5 g an hour for blood pressure support, Lasix drip continues at 10 mg an hour, renal function remains impaired but does have good urine output. Poor appetite, takes primarily his ensure shakes. Antibiotic therapy in the form of Zosyn and vancomycin. Last BM 201707/14/2017: Patient lying in bed, breathing easier. Remains on 3 L nasal cannula, afebrile , antibiotic therapy continues for MRSA septicemia. Hemodialysis done today with 3.5 L removed, patient did become more tachycardic during the procedure. His baseline rate is about 120 beats a minute irregular, blood pressure is in the 110s, Levophed infusion at 2 mics a minute, Lasix drip continues at 10 mg an hour, renal function continues to be impaired. Appetite is poor, does drink his ensure. 07/13/2017: Patient lying in bed receiving hemodialysis, breathing is somewhat easier, heart rate remains elevated. Had an episode of chest discomfort and received Dilaudid which relieved his pain. Pain was located on the right side of the chest and reproducible with palpation. Remains on 5 L nasal cannula did not require any BiPAP support overnight. Hemodialysis was successful removing 3 L of fluid yesterday patient is scheduled for another round of hemodialysis today. Lasix drip continues at 10 mg an hour, remains in atrial fibrillation amiodarone drip at 0.5 mg a minute, norepinephrine was on and off throughout the night. Currently at 4 g. Follow-up blood cultures negative for growth. Remains on daptomycin and ciprofloxacin. REVIEW OF SYSTEMS: Done for constitutional ,cardiovascular, GI, pulmonary with relevant findings as above. CURRENT MEDICATIONS Tylenol, [place], DuoNeb, amiodarone, Casodex, Questran, Aranesp, docusate sodium , Dilaudid, Imodium, Ativan, Megace, melatonin, Lopressor, midodrine, vancomycin , Zofran, Protonix, Paxil, Zosyn, potassium chloride. MiraLAX PHYSICAL EXAM VITAL SIGNS: Temp temperature 96.4, pulse 59, respiratory rate 18, blood pressure 131/62, oxygen saturation 99% on 2 L GENERAL APPEARANCE: Lying in bed, very restless and lethargic HENT: Normocephalic oral cavity normal, external appearance of the nose and ears normal, NECK: JVD not raised. Mass not palpable EYES: Pupils equal. Conjunctiva normal RESPIRATORY: Respiratory effort increased. Diminished bilaterally basilar crackles. CARDIOVASCULAR: First and second sounds normal. Mild edema. ABDOMEN: Soft. Liver and spleen not palpable. No tenderness. No mass palpable. PSYCHIATRY: Alert to name , really not answering questions much Mood and affect somewhat delirious restless . INTEGUMENT: Right IJ dialysis catheter placemen right chest wall , right upper arm PICC line . INVESTIGATIONS: LABS: Hemoglobin 7.8, BUN 16, creatinine 2.40, Accu-Cheks noted. Blood cultures: 07/02/2017: MRSA Urine culture: 07/02/2017: Pseudomonas aeruginosa Blood culture: 07/04/2017 repeat: Methicillin-resistant staph aureus Blood culture 07/04,,31: Negative for any growth after 144 hours Sputum culture: 07/14/2017: Destiny glabrata Blood culture: 07/14/2017: Negative for any growth after 144 hours. ASSESSMENT: -Methicillin-resistant Staphylococcus aeruginosa bacteremia with suspicion for underlying endocarditis, slow to respond -Acute delirium/metabolic encephalopathy likely due to acute on chronic kidney disease -Possible staphylococcal lung infection/MRSA pneumonia secondary to chest x-ray findings to the upper lobe apices, slow to respond -Volume overload, multifactorial, slow to respond -Anemia, multifactorial, including that of chronic kidney disease and some blood loss, 6.4 today, received 1 unit of packed cells -Metabolic acidosis from acute kidney injury, improved with dialysis -Acute kidney injury from acute tubular necrosis, including hypertension. -Chronic kidney disease, prostate leak from nephrosclerosis. -Hypotensive shock. possibly cardiogenic Levophed off. -Persistent atrial fibrilation controlled currently sinus rhythm on by mouth amiodarone. -Metastatic prostate cancer with involvement of the bone including the inferior pubic rami, liver on PET scan, and the rectum causing rectal bleeding. The patient is getting palliative radiation treatment and Casodex. -Acute blood loss anemia multifactorial having received 1 units packed red blood cells. -Diabetes mellitus type 2 on insulin drip -Hypertension, history of. -Hyperlipidemia. -Acute congestive heart failure from systolic dysfunction ejection fraction 30- 35% could be arrhythmia reduced, slow to respond -Acute hypoxic respiratory failure status post ventilator support, patient currently on 3 L of oxygen, slow to respond -Acute renal failure, likely acute tubular necrosis, now requiring hemodialysis , slow to respond -Acute urinary tract infection with Pseudomonas, status post antibiotic, resolved -CODE STATUS: No code PLAN: Dialysis to continue on a Sunday schedule. Antibiotic therapy continues in the form of vancomycin finishes 6 week course of therapy as per infectious disease. Repeat echocardiogram done, cardiology does not feel at this time there is any evidence of endocarditis has concerns regarding performing a CHASITY. Family meeting to occur later today with the son daughter and regarding overall prognosis and treatment plan, possible hospice. Prognosis continues to be quite poor particularly with multiple comorbidities and metastatic prostate cancer. Plan of care discussed at the bedside we will follow closely. MANAGER WIRELESS statement: Patient was seen and examined by nurse practitioner Beth Hammond and all elements of the case discussed with attending Dr. Ortiz
--- NOTE | 2017-07-26 16:52 | PN ---
PROGRESS NOTE DATE OF SERVICE: 07/26/2017. REASON FOR FOLLOWUP: 1. 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 2. Possible pneumonia. INTERVAL HISTORY: The patient is afebrile. The patient remains to be lethargic and unable to provide any history. No nausea, vomiting has been noticed or any diarrhea per the sitter present at the bedside. EXAMINATION: Blood pressure is 130/62 with a pulse of 59, temperature 96.4. He is 98% on 2 L nasal cannula. General description is a elderly male lying in bed in no distress. RESPIRATORY SYSTEM: Unlabored breathing with decreased breath sounds at the bases. No wheeze. HEART: S1, S2. Regular rate and rhythm. ABDOMEN: Soft, no tenderness. LABS: Hemoglobin is 7.8 with a white count of 6.3, BUN of 16, creatinine is 2.40. DIAGNOSTIC IMPRESSION AND PLAN: Patient with MRSA bacteremia, concern likely for mitral valve endocarditis with a component of pneumonia. The patient has shown worsening for the last 24-48 hours and family is leaning more towards the comfort care, which may be appropriate for him. His care discussed in detail with the attending physician as well as with the son and . All their questions were answered. MMODL / IJN: [id number] /
[2017-07-26 17:48] LABS: Glucose,Whole Blood 135 mg/dL (75-99)
[2017-07-26 20:57] LABS: Glucose,Whole Blood 126 mg/dL (75-99)
--- NOTE | 2017-07-26 22:38 | PN ---
PROGRESS NOTE DATE OF SERVICE: 07/26/2017 ATTENDING NOTE: This patient was seen and examined by me. I discussed the case with the nurse practitioner Ms. Hammond. This is a patient with multiple medical problems who remains delirious today, not eating anymore. Sitter at the bedside. On examination, temperature 96.6, pulse 69, respiration 18, blood pressure 147/60, pulse ox 95% on room air. LUNGS: Decreased breath sounds. ABDOMEN: Soft, non-tender. Patient is delirious though moves about. Barely following commands. White count 6.3, hemoglobin 7.8, potassium 4.0. ASSESSMENT: Multiple medical problems, including increasing and worsening delirium, metabolic encephalopathy from multiple underlying problems. PLAN: Did speak to the patient's and son at the bedside. Will have a family meeting later in the evening. ADVANCED CARE PLANNING: We had a family meeting in the evening with the patient's daughter, son and present. Talked about the overall very poor prognosis of the patient; that is, the patient is actively probably in the process of dying. They all agreed that patient's quality of life is very poor and they would like to proceed with hospice care. They have chosen [facility] and they would like the patient go to the hospice house in [place], did have a preliminary talk with the same. They do not want any artificial feeding. Pain medication management was discussed. At this point patient does seem to be at baseline in some pain; hence the fentanyl patch will be given. Several questions were answered. Total time spent in discussion was about 40 minutes, including meeting we also had with the patient's and son earlier in the day. PRINCESS / OCTAVIO: [id number] /
[2017-07-27] MEDS: LORazepam 2 MG/ML INJ IV PRN ×4 (02:30→15:34)
[2017-07-27] MEDS: HYDROmorphone 0.5 MG/0.5 ML SYRINGE IVP PRN ×4 (02:30→16:26)
[2017-07-27] MEDS: IPRATROPIUM-ALBUTEROL 3 ML NEB INHALATION SCH ×3 (08:11→15:54)
[2017-07-27 12:11] VITALS: BMI 30.9
--- NOTE | 2017-07-27 13:23 | P.PN ---
Subjective Progress Note Date: 07/27/17 Principal diagnosis: Acute hypoxic respiratory failure secondary to acute pulmonary edema due to acute renal failure This is a pleasant 81-year-old gentleman who resides at an extended care facility who has a history of coronary artery disease, paroxysmal atrial fibrillation, diabetes mellitus, hyperlipidemia, hypertension, shingles, MRSA infection in the blood and urine. 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 A recent PET scan revealed large hypermetabolic lesion presumed right-sided prostatic carcinoma there is also evidence of extra Chiller extension into the rectum and into the right pelvis causing osseous destruction of medial right MP a pelvic ramus near pubic symphysis. There is metastatic lesion to the liver as well. Patient was readmitted yesterday with fever and generalized weakness. Gentleman admitted to the regular medical floor with suspected urinary tract infection and sepsis. Last evening he developed bright red bleeding from the rectum approximately 50 MLS. He did have a drop in his systolic blood pressure into the 70s and 80s. His hemoglobin was 7.0. He was transferred here to the intensive care unit. He did not require any pressors. Did receive 2 units of packed red blood cells in his current hemoglobin is 8.6. White count 11.7. Creatinine 3.10. AST 158, ALT 106 Blood cultures are revealing presumptive MRSA. His chest x-ray shows mild fluid volume overload with small effusions. He is maintaining O2 saturations in the upper 90s on 2 L/m per nasal cannula. The patient is seen again today 07/04/2017 in follow-up in the intensive care unit. He is oncology overflow patient. He is awake and alert in no acute distress. He's had no further significant rectal bleeding. Hemoglobin 8.8. He has remained hemodynamically stable. Not requiring any pressors. He is found to have MRSA bacteria anemia and gram-negative bacilli in the urine. ID is on the case. He remains on daptomycin and Zosyn. His chest x-ray continues to show evidence of fluid volume overload. He is maintaining O2 saturations in the high 90s on 2 L/m per nasal cannula. He remains in atrial fibrillation with varying ventricular response. Currently off anticoagulants. 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 The plan is to undergo CT simulation and delivery of approximately 4-5 doses. Progress note dated 07/05/2017 This is a 81-year-old male who is an oncology overflow patient. The patient could be transferred out to the oncology floor. He came in with some rectal bleeding. The reason for the rectal bleeding is because he has prostate cancer which apparently is rotated into the bowel. The plan for him is apparently on radiation therapy. The patient is doing relatively well. Feeling a bit weak. The patient does not require any pressors at this time. Hemodynamically stable and his hemoglobin has been stable. The patient remains on daptomycin and Zosyn. The patient otherwise is doing relatively relatively well. Remains on O2 at 2 L. Currently off anticoagulants. Progress note dated 07/06/2017 81-year-old male with a history of off GI bleed. The patient has a history of prostate cancer which is eroded into the rectum. He's an overflow oncology patient can be transferred out to the oncology floor or to general medical floor. The patient's very stable this point. Blood pressure is been stable. Respiratory status is stable. The patient's on O2 at 2 L by nasal cannula and IV of saline at KVO. The patient is not requiring any additional blood. The patient remains on daptomycin and Zosyn. Hemodynamically stable. The plan is for him to get radiation therapy to the prostate area to hopefully stem the bleeding from the lesion is eroding into the rectum. The patient is off all anticoagulants at this time. On 07/10/2017 patient is seen in follow-up on medical surgical floor. He developed an acute episode of respiratory distress, severe orthopnea, and acute dyspnea. His lab work today was reviewed, there is no evidence of leukocytosis , WBC is 7.7, hemoglobin is 8.1, his sodium is 133, his carbon dioxide was 18, his BUN is 55, and creatinine is 5.40. Nephrology has discussed initiation of hemodialysis with him today, patient is in agreement. His oxygenation requirements have increased, this morning he was on 2 L per nasal cannula with O2 sat at 97%, through the day and has deteriorated, and patient is not requiring 5-6 L per nasal cannula with O2 sat at 92-93%. Lung sounds are positive for coarse rales throughout the lung doan bilaterally. He remains afebrile. No other episodes of rectal bleeding was observed. Patient was actually due to start radiation therapy for his prostate cancer today, however in view of his worsening respiratory status, was put on hold. Stat chest x-ray was obtained, and shows worsening decompensated congestive heart failure and confluent pulmonary edema. 80 mg of Lasix IV was given, with no response, patient only made 10 mL of urine. Patient has been progressively more oliguric over the last few days. Has been complaining of worsening appetite and weakness. Dr. Escobedo was consulted for placement of hemodialysis catheter, patient is unable to lay down flat, patient may have to go on the BiPAP support and hemodialysis catheter may have to be placed in the femoral area. We will transfer the patient to the intensive care, and request Dr. Escobedo to place a hemodialysis catheter STEPHEN and initiate hemodialysis as soon as possible. On 07/11/2017 patient remains in the intensive care BiPAP support with pressures 12.5 and FiO2 40%. He had hemodialysis last night would removal of 3 L of fluid, he is scheduled for hemodialysis again today. Is moderately short of breath, lung sounds are positive for coarse rhonchi, rales. And to produce some urine, 10-20 mL per hour. Chest x-ray from 07/11/2017 has been reviewed and shows airspace disease consistent with CHF and pulmonary edema. Support was reviewed, WBCs are up to 14, hemoglobin is 9, serum sodium is 134, serum potassium is 4.1, B1 is 46, creatinine is 5.2, with CO2 of 17. Bilateral lower extremities positive for 1+ pitting edema. Patient was given 80 mg of Lasix with modest response, about 125 mL in the first hour after administration. Continues on ciprofloxacin for Pseudomonas in the urine, daptomycin for the positive blood cultures with MRSA. On 07/12/2017 patient is seen again in the intensive care. Wore the BiPAP mask intermittently last night, this morning he is on 6 L of oxygen, per high flow nasal cannula. Denies worsening dyspnea at rest, still using accessory abdominal muscles. Lung sounds are much improved from yesterday's exam, positive for a few scattered expiratory wheezes over posterior lower basis, but no rhonchi no rales auscultated. Last night patient went into atrial fibrillation with rapid ventricular rate with a rate of 1:30 to 140 BPM. Patient was started on Cardizem drip at 10 mg/hour. He had 2 L removed during hemodialysis yesterday evening, her symptoms. He was started on Lasix drip at 10 mg/hr per nephrology. His urine output has improved, averaging 60-100 mL per hour. Overall his net fluid balance is -2800 mL in the last 24 hours. He is currently having another hemodialysis treatment, with a target removal of 3 L today. Patient is hypotensive with systolic in the 70s and 80s, still tachycardic with a rate of 120-120 BPM. May have to restart vasopressor support with levophed. Chest x-ray from December 30 was reviewed and shows diffuse wheezes bilaterally, pulmonary edema versus diffuse pneumonia. Cultures are negative, patient has MRSA bacteremia, concern for possible endocarditis. Currently, covered with daptomycin. Cardiology is unable to proceed with CHASITY the view of patient's respiratory status. Continue oral Cipro for pseudomonal unit tract infection. Overall the patient states his breathing is easier today. On 07/27/2017 patient seen in follow-up on selective care unit. He is sedated, had just received some IV Dilaudid for his pain. There is a drug safety specialist at the bedside, apparently patient had pulled out his right subclavian hemodialysis catheter couple nights ago. Currently on 2 L per nasal cannula with O2 sat 98%. Respirations are nonlabored. Lung sounds are diminished, with crackles at the bases. Patient was recommended to enroll in palliative care, hospice is expected to speak with the patient today. Objective - Vital Signs Vital signs: Vital Signs Temp 96.7 F L 07/27/17 10:13 Pulse 57 L 07/27/17 08:54 Resp 20 07/27/17 08:54 BP 120/59 07/27/17 08:54 Pulse Ox 98 07/27/17 08:54 Intake & Output 07/26/17 07/27/17 07/27/17 18:59 06:59 18:59 Intake Total 90 Output Total 76 Balance 14 Weight 100.5 kg Intake: IV 90 Piperacillin-Tazobactam 3 50 .375 gm In Dextrose/Water 1 50ml.bag @ 12.5 mls/hr IVPB Q12HR [facility] Rx#: [id number] Sodium Chloride 0.9% 1, 40 000 ml @ 20 mls/hr IV . Q24H [facility] Rx#:[id number] Oral 0 Output: Urine 75 Stool 1 Other: Voiding Method Indwelling Catheter Indwelling Catheter Indwelling Catheter - Exam No acute distress, patient is sedated, had just received the IV Dilaudid HEENT examination is grossly unremarkable. Mucous membranes are moist. No oral lesions. Neck supple. Full range of motion. No adenopathy thyromegaly or neck vein distention. Cardiovascular examination reveals irregular rhythm. S1-S2 normal. No S3 or S4. No discernible murmur noted. Lungs sounds are diminished, with bibasilar crackles. Patient is less tachypneic today, less dyspneic at rest,, although still is abdominal accessory muscles. Abdomen soft bowel sounds are heard. No masses or tenderness. Extremities are intact. No cyanosis clubbing or edema. Skin is without rash or lesion. Neurologic examination is brief but nonfocal. - Labs CBC & Chem 7: 07/26/17 05:07 07/26/17 05:07 Labs: Abnormal Lab Results - Last 24 Hours (Table) 07/26/17 07/26/17 Range/Units 17:28 20:56 POC Glucose (mg/dL) 135 H 126 H (75-99) mg/dL Assessment and Plan Plan: Assessment: #1. Acute hypoxic respiratory failure secondary to acute pulmonary edema due to acute on chronic renal failure, recovered. Patient was started on hemodialysis , received several treatments. #2 Acute rectal bleeding secondary to invading prostate mass, resolved. Status post 2 units of packed red blood cell infusions. Current hemoglobin 8.2. #3 Large hypermetabolic lesion of right-sided prostatic carcinoma with evidence of extra capsular extension into the rectum and into the right pelvis causing osseous distraction of medial right inferior pelvic ramus near pubic symphysis. Metastatic lesion to the liver. #4 Sepsis secondary to MRSA bacteremia, on Zosyn and vancomycin #5 Acute urinary tract infection, urine culture positive for pseudomonas aeruginosa, sensitive to Cipro. #6 Acute on chronic renal failure, current creatinine 2.4, patient is currently on hemodialysis. #7 Elevated liver enzymes with metastatic liver lesion. #8 Paroxysmal atrial fibrillation. #9 Coronary artery disease. #10 Diabetes mellitus. #11 Hyperlipidemia. #12 Hypertension. #13 History of shingles. #14 skilled nursing resident. Plan: Patient is currently on 2 L per nasal cannula, in no acute pulmonary distress. Yesterday patient's, patient's family met with the attending physician. Palliative care was recommended. Patient and patient's family are in agreement. Hospice is expected to meet with them today. I performed a history & physical examination of the patient and discussed their management with my nurse practitioner, Dilcia Serrano. I reviewed the nurse practitioner's note and agree with the documented findings and plan of care. Lung sounds are diminished, with bibasilar rales. The findings and the impression was discussed with the patient. I attest to the documentation by the nurse practitioner. Time with Patient: Less than 30
[2017-07-27 16:28] VITALS: BP 141/62; PULSE 72; RESP 18; TEMP 96.8
--- NOTE | 2017-07-27 19:33 | DS ---
DISCHARGE SUMMARY DATE OF ADMISSION: July 01, 2017. DATE OF DISCHARGE: July 27, 2017. FINAL DIAGNOSES: 1. MRSA bacteremia, possible endocarditis. 2. Acute delirium and metabolic encephalopathy multifactorial. 3. MRSA pneumonia and possible MRSA pneumonia. 4. Volume overload. 5. Anemia multifactorial including that of chronic kidney disease and blood loss requiring blood transfusion. 6. Metabolic acidosis, multifactorial including that from kidney failure. 7. Acute kidney injury from acute tubular necrosis. 8. 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 9. Hypertensive shock including possible cardiogenic shock requiring pressors. 10.Persistent atrial fibrillation. 11.Metastatic prostate cancer involvement of the inferior pubic rami of liver at the rectum. 12.Acute blood loss anemia from lower GI bleed from rectal bleeding involved with the cancer. 13.Diabetes mellitus type 2 with uncontrolled sugars. 14.Essential hypertension history. 15.Hyperlipidemia. 16.Acute congestive heart failure from systolic dysfunction EF 30 to 35%. 17.Acute hypoxic respiratory failure, status post ventilator support. 18.Acute urinary tract infection from Pseudomonas. 19.CODE STATUS DO NOT RESUSCITATE AND HOSPICE. CONSULTATIONS: Dr. Janneth Gee from Gastroenterology, Dr. Falcon from Cardiology, Dr. Love from Oncology, Dr. Snider from urology, Dr. Biswas from infectious Disease, Dr. Stevenson Al[place] from Radiation Oncology, Dr. Barrow from Pulmonary Critical Care. Dr. Payne from Nephrology. HOSPITAL COURSE: This pleasant unfortunate gentleman who has metastatic prostate cancer eroded to the rectum and patient started bleeding. The patient also went into respiratory failure, went into renal failure. The patient was started on dialysis. The patient continued to deteriorate, mental status did become worse. The patient rather became delirious. Oral intake had remained poor. Continued to deteriorate. I spoke to family multiple times, especially the and the son. Eventually had a family meeting and after discussion with other consultants who all felt the patient's quality of life is very poor and patient should be made hospice. After meeting yesterday patient was made hospice. Family decided to take the patient to the [facility] [place]. On examination patient is delirious. For some baseline pain, patient is put on a fentanyl patch. The patient will be transferred down to [facility]. DISCHARGE MEDICATIONS: 1. Ativan 1 mg q.4 for anxiety p.r.n. 2. Roxanol 20 mg/mL to be to be given 5 mg q.4 p.r.n. 3. Scopolamine patch q.72 hours. 4. Fentanyl 25 mcg an hour patch. DISPOSITION: 1. Hospice house in [place]. FOLLOWUP: Follow up with hospice house physician. Copy to Dr. Martinez. MMMARY JO / AMINTAN: [id number] /
== END 2017-07-27 18:33 | disposition hospice, home (50) | DRG 698 ==
LOC: EC 23:36 → 4MS4W 07-02 02:51 → 6ICU 07-02 17:57 → 5MS5E 07-06 18:31 → 6ICU 07-10 16:34 → 6SEL 07-22 13:27
PROVIDERS: ADMIT Hospitalist; ATTEND Hospitalist
PROC: 5A1D70Z Performance of Urinary Filtration, Intermittent, Less than 6 Hours Per Day (ICD-10-PCS; principal; 2017-07-11)
PROC: 04HK33Z Insertion of Infusion Device into Right Femoral Artery, Percutaneous Approach (ICD-10-PCS; principal; 2017-07-11)
PROC: 02HV33Z Insertion of Infusion Device into Superior Vena Cava, Percutaneous Approach (ICD-10-PCS; 2017-07-18)
PROC: 02HV33Z Insertion of Infusion Device into Superior Vena Cava, Percutaneous Approach (ICD-10-PCS; 2017-07-19 16:00)
PROC: 02HV33Z Insertion of Infusion Device into Superior Vena Cava, Percutaneous Approach (ICD-10-PCS; 2017-07-25)
DX: T83.511A Infection and inflammatory reaction due to indwelling urethral catheter, initial encounter (principal); A41.02 Sepsis due to Methicillin resistant Staphylococcus aureus; J96.01 Acute respiratory failure with hypoxia; J15.212 Pneumonia due to Methicillin resistant Staphylococcus aureus; I33.0 Acute and subacute infective endocarditis; N17.0 Acute kidney failure with tubular necrosis; G93.41 Metabolic encephalopathy; C78.7 Secondary malignant neoplasm of liver and intrahepatic bile duct; K92.2 Gastrointestinal hemorrhage, unspecified; I48.0 Paroxysmal atrial fibrillation; I48.2 Chronic atrial fibrillation; I50.21 Acute systolic (congestive) heart failure; N18.6 End stage renal disease; R65.20 Severe sepsis without septic shock; C79.51 Secondary malignant neoplasm of bone; E87.2 Acidosis; I42.9 Cardiomyopathy, unspecified; D62 Acute posthemorrhagic anemia; C20 Malignant neoplasm of rectum; E87.1 Hypo-osmolality and hyponatremia; I48.1 Persistent atrial fibrillation; N13.8 Other obstructive and reflux uropathy; N39.0 Urinary tract infection, site not specified; E11.21 Type 2 diabetes mellitus with diabetic nephropathy; E11.69 Type 2 diabetes mellitus with other specified complication; B96.5 Pseudomonas (aeruginosa) (mallei) (pseudomallei) as the cause of diseases classified elsewhere; E86.9 Volume depletion, unspecified; C61 Malignant neoplasm of prostate; D63.1 Anemia in chronic kidney disease; E11.22 Type 2 diabetes mellitus with diabetic chronic kidney disease; E78.5 Hyperlipidemia, unspecified; E87.6 Hypokalemia; I12.9 Hypertensive chronic kidney disease with stage 1 through stage 4 chronic kidney disease, or unspecified chronic kidney disease; I25.10 Atherosclerotic heart disease of native coronary artery without angina pectoris; N40.1 Benign prostatic hyperplasia with lower urinary tract symptoms; Y84.6 Urinary catheterization as the cause of abnormal reaction of the patient, or of later complication, without mention of misadventure at the time of the procedure; Z66 Do not resuscitate; Z51.5 Encounter for palliative care; Z79.4 Long term (current) use of insulin; Z79.899 Other long term (current) drug therapy; Z80.3 Family history of malignant neoplasm of breast; Z85.46 Personal history of malignant neoplasm of prostate; Z86.19 Personal history of other infectious and parasitic diseases; Z99.2 Dependence on renal dialysis; Z87.891 Personal history of nicotine dependence; R19.7 Diarrhea, unspecified
CPT/HCPCS: 36415; 36558; 36569; 70450; 70496; 70498; 71010; 71020; 71045; 76770; 76937; 77001; 77290; 77295; 77300; 77334; 78806; 80048; 80053; 80074; 80202; 81001; 82272; 82550; 82553; 83036; 83605; 83735; 84100; 84132; 84484; 84550; 85025; 85027; 85610; 85730; 86705; 86706; 86850; 86900; 86901; 86920; 87040; 87070; 87077; 87086; 87186; 87205; 87324; 87340; 87502; 90935; 93005; 93306; 94640; 94660; 94760; 96360; 99285